=== PATIENT | male | born 1955 | race Caucasian/White ===

== ENCOUNTER 2016-09-19 17:53 | Inpatient (IN) | payer OTHER ==
[~2016-09-19] VITALS: Ht 162.6 cm; Wt 67.1 kg
[~2016-09-19 17:53] MED LIST: ALEN70TA2 PO; ASPI81TA21 PO; ATOR-24 PO; CLOP1TAB5 PO; DEXL60CA4 PO; DIGO0.1216 PO; DOCU-94 PO; DPKSR250 PO; DPKSR500 PO; FLUO40CA8 PO; FURO-85 PO; LISI2.5T5 PO; METO25TA3 PO
[2016-09-19] MEDS ORDERED: ONDANSETRON 8 MG/54 ML D5W IV STA (18:34)
[2016-09-19] MEDS ORDERED: SODIUM CHLORIDE 0.9% 1000ML 1,000 ML IV STA (18:34)
[2016-09-19] MEDS ORDERED: SODIUM CHLORIDE 0.9% 500ML 500 ML IV STA (18:34)
[2016-09-19] MEDS ORDERED: ACETAMINOPHEN 500 MG TAB PO STA (18:34)
[2016-09-19] MEDS ORDERED: MoRPHine SULFATE 4 MG/ML 1 ML CARP\\VIAL IV STA (18:46)
[2016-09-19] MEDS ORDERED: MoRPHine SULFATE 2 MG/ML CARP ONE (18:54)
[2016-09-19 18:57] LABS: BUN/CREATININE RATIO 15.7 (10-20); CALCIUM 9.3 mg/dl (8.5-10.1); POTASSIUM 3.8 mmol/L (3.5-5.1)
[2016-09-19 18:58] LABS: ANISOCYTOSIS PRESENT; COMPLETE YES; ECHINOCYTES 2+; EOS % 0.4 %; GIANT PLATELETS 1+; HEMATOCRIT 41.8 % (42-52); IG% 0.4 %; LYMPH % 4.7 %; LYMPH ABS # 0.39 K/uL (1.2-3.4); MEAN CELL VOLUME 96.5 fL (80-100); MEAN CORPUSCULAR HEMOGLOBIN 32.3 pg (25-34); MEAN CORPUSCULAR HGB CONC 33.5 g/dl (32-36); MEAN PLATELET VOLUME 12.8 fL (7.4-10.4); MONO % 3.1 %; NEUT % 91.4 %; OVALOCYTES 1+; PLATELET COUNT 87 K/uL (130-400); PLT ESTIMATE DECREASED; RED BLOOD COUNT 4.33 M/uL (4.7-6.1); VACUOLIZATION 1+; WHITE BLOOD COUNT 8.35 K/uL (4.8-10.8)
--- NOTE | 2016-09-19 19:11 | DIAGNOSTIC IMAGING REPORT ---
CHEST ONE VIEW PORTABLE CLINICAL HISTORY: vomiting, hypoxia COMPARISON STUDY: 03/03/2016 FINDINGS: The cardiac and mediastinal contours remain stable. There is a left subclavian pacer/defibrillator present. There is no failure. There is no focal pulmonary consolidation. There are no pleural effusions.[ IMPRESSION: No active disease in the chest. Electronically signed by: Gt Bearden M.D. 09/19/2016 7:10 PM Dictated Date/Time: 09/19/2016 7:09 PM
[2016-09-19] MEDS ORDERED: ALBUT/IPRATROP 3MG/0.5MG NEB 3 ML VIAL INH STA (20:20)
[2016-09-19] MEDS ORDERED: LNX125 PO (20:27)
[2016-09-19] MEDS ORDERED: ALBUT/IPRATROP 3MG/0.5MG NEB 3 ML VIAL INH PRN ×2 (20:30→23:15)
[2016-09-19 21:43] LABS: MAGNESIUM 2.1 mg/dl (1.8-2.4); THYROID STIMULATING HORMONE 6.37 uIu/ml (0.300-4.500)
[2016-09-19 23:01] LABS: ARTERIAL BLD GAS O2 SATURATION 92.6 % (90-95); ARTERIAL BLOOD GAS BASE EXCESS -3.9 mEq/L (-9-1.8); ARTERIAL BLOOD GAS HCO3 21 mmol/L (19-24); ARTERIAL BLOOD GAS PO2 70 mm/Hg (80-95); ARTERIAL BLOOD GAS pH 7.37 (7.35-7.45)
[2016-09-19 23:03] LABS: O2 ADMINISTRATION 3 LITERS
[2016-09-19 23:04] LABS: ALLEN TEST POS (POS)
[2016-09-19] MEDS ORDERED: PROMETHAZINE HCL INJ 12.5 MG in SODIUM CHLORIDE 0.9% 50ML 50 ML IV PRN (23:15)
[2016-09-19] MEDS ORDERED: ONDANSETRON INJ 2 MG/ML 2 ML VIAL IV PRN (23:15)
[2016-09-19] MEDS ORDERED: OPTIRAY 320 IV PRN (23:15)
[2016-09-19] MEDS ORDERED: HYDROmorphone INJ 0.5 MG/0.5 ML SYR IV PRN (23:15)
[2016-09-19] MEDS ORDERED: NITROGLYCERIN 0.4 MG SL PER TAB CHARGE SL PRN (23:15)
[2016-09-19] MEDS ORDERED: OXYCODONE/ACETAMINOPHEN 5-325 TAB PO PRN (23:15)
[2016-09-20] VITALS (20 sets, daily range): BP systolic 68–107; BP diastolic 37–68; PULSE 63–108; TEMP 36.8–38.6; O2SAT 90–98; Ht 162.6 cm; Wt 67.1 kg
--- NOTE | 2016-09-20 00:20 | DIAGNOSTIC IMAGING REPORT ---
CT SCAN OF THE ABDOMEN AND PELVIS WITH IV CONTRAST CLINICAL HISTORY: Generalized abdominal pain. COMPARISON STUDY: Abdominal CT dated 02/22/2014. TECHNIQUE: Following the IV administration of 120 cc of Optiray 320, CT scan of the abdomen and pelvis is performed from the lung bases to the proximal femora. Images are reviewed in the axial, sagittal, and coronal planes. IV contrast was administered without complication. Automated dose control exposure was utilized. The examination is degraded by streak artifact from the patient's arms which could not be elevated above the chest. FINDINGS: Lung bases: Pacemaker in the left chest wall is partially imaged. Pacemaker leads are identified. The heart is normal in size and without pericardial effusion. The coronary arteries are densely calcified. There is patchy airspace consolidation in the lower lobes. Fluid/debris is present within the lower lobe bronchi. No pleural effusion is seen. The esophagus is dilated and filled with fluid. Gynecomastia is observed. Liver: The contrast-enhanced liver is normal in size, contour, and attenuation. There is no intrahepatic biliary ductal dilatation. The hepatic veins and portal veins are patent. Gallbladder: Unremarkable. Spleen: Normal in size and attenuation. Pancreas: Atrophic. Adrenal glands: Unremarkable. Kidneys: The contrast enhanced kidneys demonstrate cortical atrophy and are without hydronephrosis. The kidneys enhance symmetrically. 2.5 cm cyst arises from the right upper pole. There is a 4 mm nonobstructing right renal calculus. Subcentimeter cortical hypodensities in the left cyst likely represent cysts but are too small for definitive characterization. Abdominal vasculature: The abdominal aorta is normal in course and caliber noting moderate atherosclerotic calcification. Bowel: The stomach is mildly distended with fluid. There are fluid-filled loops of small bowel seen in the right upper quadrant. There is no clear evidence of bowel obstruction. Liquid stool is noted throughout the colon and the colonic mucosa appears hyperemic. There is no colonic wall thickening or pericolonic infiltration. The appendix is not identified and reported surgically absent. Peritoneum: There is no intraperitoneal free air or abdominal ascites. Lymphadenopathy: None. Pelvic viscera: The bladder, prostate, and seminal vesicles are normal as visualized. Skeletal structures: The skeletal structures are osteopenic. No lytic or blastic lesions are seen. Postoperative change and posttraumatic deformity is noted in the left hip. IMPRESSION: 1. The stomach is distended and fluid-filled. The distal esophagus is also distended and filled with fluid. There is no clear radiographic evidence of bowel obstruction. 2. There is bibasilar patchy airspace consolidation. This likely represents pneumonia/aspiration pneumonitis. Aspiration pneumonitis is favored given the distended and fluid-filled esophagus. 3. There are mildly distended and fluid-filled loops of small bowel in the right upper quadrant. Additionally, there is liquid stool seen throughout the colon with mild hyperemia of the colonic mucosa. There is no colonic wall thickening or pericolonic inflammation. The appearance suggests a nonspecific enterocolitis/diarrheal illness. Clinical correlation will be required. 4. Nonobstructing right renal calculus. 5. Additional findings as above. Electronically signed by: Thang Thomas M.D. 09/20/2016 12:19 AM Dictated Date/Time: 09/20/2016 12:06 AM
--- NOTE | 2016-09-20 00:29 | DIAGNOSTIC IMAGING REPORT ---
CT ANGIOGRAM OF THE CHEST CLINICAL HISTORY: Hypoxia. COMPARISON STUDY: Chest x-ray dated 09/19/2016. Chest CT dated 02/22/2014. TECHNIQUE: Following the IV administration of 120 cc of Optiray 320, CT angiogram of the chest was performed from the upper abdomen to the thoracic inlet utilizing the pulmonary embolus protocol. Images are reviewed in the axial, sagittal, and coronal planes. 3-D MIPS images are created and assessed. IV contrast was administered without complication. The examination is degraded by streak artifact from the patient's arms which could not be elevated above the chest as well as by motion artifact. CT DOSE: 828.45 mGy.cm FINDINGS: Thyroid: Imaged portions of the thyroid gland are normal in size and attenuation. Thoracic aorta: The thoracic aorta is normal in caliber and demonstrates bovine variant arch anatomy. No dissection is seen. Pulmonary vasculature: The pulmonary trunk is dilated, measuring 3.3 cm in transverse diameter. This suggests pulmonary artery hypertension. There are no filling defects identified in main, lobar, or proximal segmental pulmonary branches to suggest pulmonary embolus. Evaluation of the peripheral branches is degraded by motion artifact. Heart: A single lead cardiac AICD is present in the left chest wall. Complete terminates in the right ventricle. The heart is top normal in size and configuration, and without pericardial effusion. The coronary arteries are densely calcified. Lungs and pleural spaces: Evaluation of the lung parenchyma is degraded by respiratory motion artifact. There is patchy bibasilar airspace consolidation, left greater than right. No pleural effusion is seen. The upper lobes appear clear. Fluid/debris fills the lower lobe airways. Mediastinum: There is no mediastinal lymphadenopathy. Nicole: Clear. Axillae: There is no axillary lymphadenopathy. Upper abdomen: The fluid is distended and filled with fluid to the level of the thoracic inlet. The stomach is distended. See report of abdominal CT performed concurrently for detailed intra-abdominal findings. Skeletal structures: The skeletal structures are osteopenic. No lytic or blastic bony lesions are seen. Advanced arthritic change is present in the shoulders, left greater than right. There are mild superior endplate compression forms of T3, T4, and T5. IMPRESSION: 1. Motion and streak artifact degraded examination. 2. There is no evidence of pulmonary embolus in the main, lobar, or proximal segmental pulmonary arteries. 3. There is patchy bibasilar airspace consolidation, left greater than right with fluid/debris filling the lower lobe airways. This likely represents an infectious or inflammatory pneumonitis, likely related to aspiration. 4. The esophagus is distended and filled with fluid the level of the thoracic inlet. Note that this places the patient risk for aspiration. 5. No pleural effusion is identified. 6. Additional changes as above. Electronically signed by: Thang Thomas M.D. 09/20/2016 12:27 AM Dictated Date/Time: 09/20/2016 12:19 AM
[2016-09-20] MEDS ORDERED: SODIUM CHLORIDE 0.9% 1000ML 1,000 ML IV SCH (02:00)
[2016-09-20] MEDS ORDERED: SODIUM CHLOR 0.45% + 20MEQ KCL 1,000 ML IV ONE (03:00)
[2016-09-20] MEDS ORDERED: AMPICILLIN/SULBACTAM CONSULT ACTIVE PRN ×2 (03:15)
[2016-09-20] MEDS: AMPICILLIN/SULBACTAM SOD INJ 3,000 MG in SODIUM CHLORIDE 0.9% 100ML 100 ML IV SCH ×4 (03:38→21:36)
[2016-09-20] MEDS ORDERED: METHYLPREDNISOLONE IV 20 MG in SYRINGE 0 ML IV ONE (03:48)
--- NOTE | 2016-09-20 04:24 | EMERGENCY ROOM VISIT NOTE ---
History Report prepared by Shahid: Lizabeth Le Under the Supervision of: Dr. Kaz Cararnza M.D. First contact with patient: 18:10 Chief Complaint: ABDOMINAL PAIN Stated Complaint: AB PAIN Nursing Triage Summary: pt started vomiting at approx 1600 today. had mid abd pain. pt has been vomiting has now stopped and pt denies any pain. History of Present Illness The patient is a 61 year old male who presents to the Emergency Room via EMS with complaints of persistent vomiting with onset 2.5 hours ago. He notes that an episode of vomiting lasted about one hour. The patient states that he was feeling fine one day ago; he denies sick contacts at home. Today, the patient started to feel ill while he was at home eating dinner, which was beef potpie. Per EMS, the patient stated that he had 6/10 abdominal pain; but this has now resolved. Upon arrival to the ED, the patient developed a headache. The patient states that he does not wear oxygen at home. Pt denies LOC, fevers, chills, diaphoresis, visual changes, neck pain, chest pain, breathing difficulties, nausea, vomiting, abdominal pain, back pain, melena, hematochezia, urinary symptoms, numbness, weakness, lymphadenopathy, rash, or other complaints. Additionally, the patient has a history of a heart attack and a stroke, which has caused the weakness on the left side of his body. Source of History: patient Onset: 2.5 hours ago Position: abdomen Review of Systems See HPI for pertinent positives and negatives. A total of ten systems were reviewed and were otherwise negative. Past Medical & Surgical Medical Problems: (1) Cardiomyopathy (2) CVA (cerebral infarction) (3) TN (myocardial infarction) (4) Presence of combination internal cardiac defibrillator (ICD) and pacemaker (5) Respiratory failure, acute Family History FH: heart disease Social History Smoking Status: Never Smoker Alcohol Use: none Marital Status: Housing Status: lives with family Occupation Status: disabled Current/Historical Medications Scheduled Alendronate Sodium (Fosamax), 70 MG PO WK Aspirin Enteric Coated (Ecotrin Or Generic), 81 MG PO DAILY Atorvastatin (Lipitor), 40 MG PO HS Clopidogrel Bisulfate (Plavix), 75 MG PO DAILY Dexlansoprazole (Dexilant), 60 MG PO DAILY Digoxin (Digoxin), 0.125 MG PO DAILY Divalproex Sodium (Divalproex Sodium ER), 250 MG PO HS Divalproex Sodium (Divalproex Sodium ER), 1,000 MG PO HS Fluoxetine (Prozac), 40 MG PO DAILY Furosemide (Lasix), 20 MG PO Q2D Lisinopril (Lisinopril), 1.25 MG PO HS Metoprolol Succ (Toprol Xl) (Toprol-Xl), 25 MG PO DAILY Allergies Coded Allergies: Naproxen (Unverified Allergy, Mild, 09/19/16) Physical Exam Vital Signs Date Time Temp Pulse Resp B/P Pulse Ox O2 Delivery O2 Flow Rate FiO2 09/19/16 22:29 91 21 97/60 99 Nasal Cannula 3.0 09/19/16 22:18 90 18 110/67 94 Nasal Cannula 3.0 09/19/16 22:14 94 09/19/16 20:28 86 18 108/72 96 Nasal Cannula 3.0 09/19/16 19:58 92 19 111/74 98 Nasal Cannula 3.0 09/19/16 18:58 88 18 115/82 99 09/19/16 18:15 84 09/19/16 18:07 92 Nasal Cannula 3.0 09/19/16 18:00 36.5 83 18 111/71 84 Room Air Physical Exam GENERAL: Awake, alert, mildly ill-appearing, in no distress HENT: Normocephalic, atraumatic. Oropharynx unremarkable. EYES: Normal conjunctiva. Sclera non-icteric. NECK: Supple. No nuchal rigidity. FROM. No JVD. RESPIRATORY: Clear to auscultation. CARDIAC: Regular rate, normal rhythm. Extremities warm and well perfused. Pulses equal. ABDOMEN: Soft, non-distended. No tenderness to palpation. No rebound or guarding. No masses. RECTAL: Deferred. MUSCULOSKELETAL: Chest examination reveals no tenderness. No joint edema. LOWER EXTREMITIES: Calves are equal size bilaterally and non-tender. No edema. No discoloration. NEURO: Normal sensorium. He has left sided arm and leg weakness which he states is chronic. SKIN: No rash or jaundice noted. Medical Decision & Procedures ER Provider Diagnostic Interpretation: X-ray: Per my interpretation, radiologist review. CHEST ONE VIEW PORTABLE CLINICAL HISTORY: vomiting, hypoxia COMPARISON STUDY: 03/03/2016 FINDINGS: The cardiac and mediastinal contours remain stable. There is a left subclavian pacer/defibrillator present. There is no failure. There is no focal pulmonary consolidation. There are no pleural effusions.[ IMPRESSION: No active disease in the chest. Electronically signed by: Gt Bearden M.D. 09/19/2016 7:10 PM Dictated Date/Time: 09/19/2016 7:09 PM Laboratory Results 09/19/16 18:05 Red Blood Count 4.33, Mean Corpuscular Volume 96.5, Mean Corpuscular Hemoglobin 32.3, Mean Corpuscular Hemoglobin Concent 33.5, Mean Platelet Volume 12.8, Neutrophils (%) (Auto) 91.4, Lymphocytes (%) (Auto) 4.7, Monocytes (%) (Auto) 3.1, Eosinophils (%) (Auto) 0.4, Basophils (%) (Auto) 0.0, Neutrophils # (Auto) 7.64, Lymphocytes # (Auto) 0.39, Monocytes # (Auto) 0.26, Eosinophils # (Auto) 0.03, Basophils # (Auto) 0.00 09/19/16 18:05 Test 09/19/16 18:05 09/19/16 19:41 09/19/16 21:10 09/19/16 21:35 White Blood Count 8.35 K/uL (4.8-10.8) Red Blood Count 4.33 M/uL (4.7-6.1) Hemoglobin 14.0 g/dL (14.0-18.0) Hematocrit 41.8 % (42-52) Mean Corpuscular Volume 96.5 fL (80-100) Mean Corpuscular Hemoglobin 32.3 pg (25-34) Mean Corpuscular Hemoglobin Concent 33.5 g/dl (32-36) Platelet Count 87 K/uL (130-400) Mean Platelet Volume 12.8 fL (7.4-10.4) Neutrophils (%) (Auto) 91.4 % Lymphocytes (%) (Auto) 4.7 % Monocytes (%) (Auto) 3.1 % Eosinophils (%) (Auto) 0.4 % Basophils (%) (Auto) 0.0 % Neutrophils # (Auto) 7.64 K/uL (1.4-6.5) Lymphocytes # (Auto) 0.39 K/uL (1.2-3.4) Monocytes # (Auto) 0.26 K/uL (0.11-0.59) Eosinophils # (Auto) 0.03 K/uL (0-0.5) Basophils # (Auto) 0.00 K/uL (0-0.2) RDW Standard Deviation 56.0 fL (36.4-46.3) RDW Coefficient of Variation 15.9 % (11.5-14.5) Immature Granulocyte % (Auto) 0.4 % Immature Granulocyte # (Auto) 0.03 K/uL (0.00-0.02) Toxic Vacuolation 1+ Platelet Estimate DECREASED Giant Platelets 1+ Anisocytosis PRESENT Ovalocytes 1+ Echinocytes 2+ D-Dimer 3690 ug/L FEU (0-500) Anion Gap 9.0 mmol/L (3-11) Est Creatinine Clear Calc Drug Dose 64.2 ml/min Estimated GFR () 93.1 Estimated GFR (Non- 80.3 BUN/Creatinine Ratio 15.7 (10-20) Calcium Level 9.3 mg/dl (8.5-10.1) Magnesium Level 2.1 mg/dl (1.8-2.4) Total Bilirubin 0.5 mg/dl (0.2-1) Direct Bilirubin 0.2 mg/dl (0-0.2) Aspartate Amino Transf (AST/SGOT) 19 U/L (15-37) Alanine Aminotransferase (ALT/SGPT) 23 U/L (12-78) Alkaline Phosphatase 59 U/L (45-117) Troponin I < 0.015 ng/ml (0-0.045) Pro-B-Type Natriuretic Peptide 692 pg/ml (0-900) Total Protein 7.7 gm/dl (6.4-8.2) Albumin 3.5 gm/dl (3.4-5.0) Lipase 196 U/L (73-393) Thyroid Stimulating Hormone (TSH) 6.370 uIu/ml (0.300-4.500) Free Thyroxine 1.31 ng/dl (0.80-1.60) Bedside Lactic Acid Venous 5.37 mmol/L (0.90-1.70) Lactic Acid Level 3.7 mmol/L (0.4-2.0) Digoxin Level 0.3 ng/ml (0.8-2.0) Valproic Acid (Depakene) Level 47 mcg/ml (50-100) Laboratory results reviewed by me Medications Administered Medications (Trade) Dose Ordered Sig/Ton Route Start Time Stop Time Status Last Admin Dose Admin Ondansetron HCl 8 mg 8 mg NOW STAT IV 09/19/16 18:34 09/19/16 18:35 DC 09/19/16 18:52 8 MG Sodium Chloride 500 ml @ 999 mls/hr Q31M STAT IV 09/19/16 18:34 09/19/16 19:04 DC 09/19/16 18:51 999 MLS/HR Sodium Chloride (Nss 1000ml) 1,000 ml @ 200 mls/hr Q5H STAT IV 09/19/16 18:34 09/19/16 23:33 DC 09/19/16 20:12 200 MLS/HR Morphine Sulfate (MoRPHine SULFATE INJ) 2 mg NOW STAT IV 09/19/16 18:46 09/19/16 18:47 DC 09/19/16 18:46 2 MG Morphine Sulfate (MoRPHine SULFATE INJ) 2 mg STK-MED ONCE .ROUTE 09/19/16 18:54 09/19/16 18:55 DC 09/19/16 18:54 2 MG Albuterol/ Ipratropium (Duoneb) 3 ml UD STAT INH 09/19/16 20:20 09/19/16 20:57 DC 09/19/16 21:03 3 ML ECG Indication: vomiting Rate (beats per minute): 82 Rhythm: normal sinus Findings: Q waves (anteroseptal), no acute ischemic change, no ectopy ED Course 1833: The patient was evaluated in room B12. A complete history and physical exam was performed. 1834: Sodium Chloride 1000 ml @ 200 mls/hr IV, Sodium Chloride 500 ml @ 999 mls/ hr IV, Tylenol 1000 mg PO, Zofran 8 mg IV 6: Morphine Sulfate 2 mg IV 1930: I reevaluated the patient; he is doing well. I discussed the test results and treatment plan with the patient. The patient will be evaluated for further management. 2017: I discussed the case with Dr. Ji ([facility]); he will further evaluate the patient. Medical Decision Triage Nursing notes reviewed. The patient's presentation and history were concerning for vomiting and hypoxia. Etiologies such as gastroenteritis, food borne illness, infections, obstruction , pancreatitis, appendicitis, diverticulitis, inflammatory bowel disease, GI bleed, biliary pathology, toxicologic, pneumonia, aspiration, as well as others were entertained. Patient was evaluated. CBC did not reveal any evidence of leukocytosis. Thrombocytopenia noted. Chemistry panel, LFTs, and lipase were negative. BNP troponin were negative as well. The patient had an elevated lactate level. Chest x-ray was performed and did not reveal any evidence of pneumonia. CT scan of the abdomen pelvis was performed this did not reveal any evidence of intra-abdominal pathology. The patient was requiring supplemental oxygen. He was treated with the above medications and was feeling much better. He will need admission to the hospital for further evaluation. I'm concerned that he may have aspirated. Consultation was made with internal medicine. Patient was evaluated in the Emergency Room for further treatment. The chart was completed utilizing [employer] Speech voice recognition software. Grammatical errors, random word insertions, pronoun errors, and incomplete sentences are an occasional consequence of this system due to software limitations, ambient noise, and hardware issues. Any formal questions or concerns about the content, text, or information contained within the body of this dictation should be directly addressed to the physician for clarification. Consults Time Called: 2014 Consulting Physician: Dr. Ji ([facility]) Returned Call: 2016 I discussed the case with Dr. Ji ([facility]); he will further evaluate the patient. Impression Primary Impression: Vomiting Additional Impressions: Hypoxia Lactic acidosis Scribe Attestation The scribe's documentation has been prepared under my direction and personally reviewed by me in its entirety. I confirm that the note above accurately reflects all work, treatment, procedures, and medical decision making performed by me. Departure Information Dispostion Being Evaluated By Hospitalist Referrals Richardson Sterling M.D. (PCP) Patient Instructions My [facility] Problem Qualifiers
[2016-09-20 06:07] LABS: BASO % 0.1 %; BASO ABS # 0.01 K/uL (0-0.2); COMPLETE YES; ECHINOCYTES 1+; EOS % 0.1 %; HEMATOCRIT 34.5 % (42-52); IG% 0.4 %; LYMPH % 11.3 %; LYMPH ABS # 1.22 K/uL (1.2-3.4); MEAN CELL VOLUME 93.8 fL (80-100); MEAN CORPUSCULAR HEMOGLOBIN 32.1 pg (25-34); MEAN CORPUSCULAR HGB CONC 34.2 g/dl (32-36); MEAN PLATELET VOLUME 13.5 fL (7.4-10.4); MONO % 11.2 %; NEUT % 76.9 %; PLATELET COUNT 72 K/uL (130-400); PLT ESTIMATE DECREASED; RED BLOOD COUNT 3.68 M/uL (4.7-6.1); WHITE BLOOD COUNT 10.82 K/uL (4.8-10.8)
[2016-09-20 06:15] LABS: BLOOD UREA NITROGEN 19 mg/dl (7-18); BUN/CREATININE RATIO 18.6 (10-20); CARBON DIOXIDE 26 mmol/L (21-32); CHLORIDE 109 mmol/L (98-107); GLUCOSE 135 mg/dl (70-99); POTASSIUM 3.9 mmol/L (3.5-5.1); SODIUM 143 mmol/L (136-145)
[2016-09-20 06:22] LABS: CALCIUM 8.2 mg/dl (8.5-10.1)
[2016-09-20] MEDS: ALBUT/IPRATROP 3MG/0.5MG NEB 3 ML VIAL INH SCH ×4 (07:30→19:08)
[2016-09-20] MEDS: METOPROLOL SUCC 25MG EXT REL TAB PO SCH (07:41)
[2016-09-20] MEDS: FLUOXETINE HCL 20 MG CAP PO SCH (07:43)
[2016-09-20] MEDS: PANTOprazole SOD 40 MG TAB PO SCH (07:43)
[2016-09-20] MEDS: DIGOXIN 0.125 MG TAB PO SCH (07:43)
[2016-09-20] MEDS: CLOPIDOGREL BISULFATE 75 MG TAB PO SCH (07:43)
[2016-09-20] MEDS: ASPIRIN 81 MG ECTAB PO SCH (07:44)
[2016-09-20] MEDS: ACETAMINOPHEN 500 MG TAB PO PRN (08:29)
--- NOTE | 2016-09-20 09:03 | HISTORY & PHYSICAL EXAMINATION ---
DATE OF ADMISSION: 09/19/2016 PRIMARY CARE DOCTOR: Dr. Sterling. Hx obtained from px and records. CHIEF COMPLAINT: Abdominal pain, nausea and vomiting. HISTORY OF PRESENT ILLNESS: Medical history significant for chronic systolic heart failure secondary to ischemic cardiomyopathy (EF 15%) sp ICD, history of CAD, CVA, seizure disorder, COPD, past tobacco abuse , PVD, chronic thrombocytopenia. Recent confinement last January 2014 for chest pain. A few days history of middle achy abdominal pain, nausea, vomiting. Good bowel movement. Patient denies chest pain, cough, shortness of breath sx. Noted to be hypoxemic in the Emergency Room. MEDICAL HISTORY: As above. 2D from February 2014 showed EF of 15%-20%. SURGERIES: ICD placement, knee surgery, appendectomy, hip surgery. HOME MEDICATIONS: Include aspirin, Fosamax, Lipitor, Plavix, Dexilant, digoxin, Lasix, Prozac, lisinopril, Toprol-XL. ALLERGIES: NAPROXEN. FAMILY HISTORY: Heart disease. PERSONAL AND SOCIAL HISTORY: past tobacci abuse, on disability. REVIEW OF SYSTEMS: As per HPI, all other ROS negative. PHYSICAL EXAMINATION: VITAL SIGNS: Blood pressure was noted to be 111/71, pulse rate 80, RR 18, temperature 37.6, sats 84 on room air. GENERAL: Noted to be chronically ill. No respiratory distress. SKIN: Pallor. HEENT: pale palp conjunctivae, dry mucosa. NECK: No JVD. Supple. CHEST: Decreased breath sounds, occ wheeze. HEART: Diminished S1, S2. ABDOMEN: Some distention. Minimal central tenderness. EXTREMITIES: No edema, no tenderness. NEUROLOGIC: No gross focality. LABS: Hemoglobin was noted to be 14, hematocrit 41, white cell count is 8, platelets 87. Sodium 140, potassium 3.8, chloride 104, CO2 of 25, BUN 16, creatinine 1, glucose was noted to be 114. D-dimer was abnormal. lactic acid of 3.7, trop N CTA patchy bibasilar airspace consolidation, left/inflammatory pneumonitis. CT abdomen and pelvis showed enterocolitis. ABG pH 7.37, pCO2 of 37, pO2 of 70 on 3 liters. ASSESSMENT: 1. Acute hypoxemic respiratory failure secondary to aspiration pneumonitis secondary to GI illness (viral gastroenteritis) No sepsis. 2. chronic systolic heart failure secondary to ischemic cardiomyopathy sp ICD (EF 15%) The patient is euvolemic to dry 3. Hypertension, blood pressure on the lower side. 4. hx CVA as per records 5. hx seizure dso on Valproic acid 6. peripheral vascular disease as per records. 7. past tobacco abuse 8. chronic thrombocytopenia PLAN: PCU supplemental O2. Unasyn, Solu-Medrol one dose; nebs RTC p.r.n. Gentle IV hydration. Hold home diuretics for now. Follow lactic acid. DVT prophylaxis SCDs re thrombocytopenia Level 3 Code Status : okay with CPR. No intubation. MTDD
[2016-09-20] MEDS ORDERED: SODIUM CHLORIDE 0.9% 500ML 500 ML IV SCH (11:30)
--- NOTE | 2016-09-20 13:53 | Progress Note ---
Internal Med Progress Note Date of Service: Sep 20, 2016. Provider Documentation: SUBJECTIVE: The patient was seen and examined was noted to have very low BP ,Systolic 70s No symptoms reported OBJECTIVE: Vital Signs-as noted below Exam: General-No distress t rest Eyes-normal ENT-normal Neck-supple Lungs-clear to auscultate bilaterally Heart-Regular,no murmur appreciated Abdomen-Benign,no masses Extremities-No edema Neuro-AAOx3 Lab data as noted below. ASSESSMENT & PLAN: Chronic systolic heart failure secondary to ischemic cardiomyopathy S/P ICD (EF 15%) Low BP this Morning Will give IV fluid with Caution Hold Diuretics Monitor for any SOB Acute hypoxemic respiratory failure Secondary to aspiration pneumonitis No sepsis on Admission Unasyn, Solu-Medrol one dose, nebs RTC p.r.n. Lactic acid is up to >4 Likely secondary to Hypotension Will give more IV Fluid Clinically better this morning Hypertension, blood pressure on the lower side. Hold an antihypertensive Peripheral vascular disease as per records. Past tobacco abuse DVT prophylaxis with Lovenox subQ. Level 3 Code Status : okay with CPR. No intubation. Vital Signs: Date Time Temp Pulse Resp B/P Pulse Ox O2 Delivery O2 Flow Rate FiO2 09/20/16 12:14 96 89/44 09/20/16 11:27 37.1 91 18 75/44 92 Room Air 09/20/16 11:14 37.5 86 16 68/37 95 Nasal Cannula 2.0 09/20/16 11:07 82 16 98 Nasal Cannula 2.0 09/20/16 09:51 37.8 09/20/16 08:00 Nasal Cannula 3.0 09/20/16 07:48 38.6 93 16 83/54 90 Room Air 09/20/16 07:43 93 09/20/16 07:30 82 16 93 Nasal Cannula 2.0 09/20/16 04:00 Nasal Cannula 3.0 09/20/16 03:45 37.5 85 20 97/63 94 Nasal Cannula 3.0 09/20/16 00:41 36.8 63 18 96/68 94 Nasal Cannula 3.0 09/19/16 23:33 90 18 100/66 99 Nasal Cannula 3.0 09/19/16 22:29 91 21 97/60 99 Nasal Cannula 3.0 09/19/16 22:18 90 18 110/67 94 Nasal Cannula 3.0 09/19/16 22:14 94 09/19/16 20:28 86 18 108/72 96 Nasal Cannula 3.0 09/19/16 19:58 92 19 111/74 98 Nasal Cannula 3.0 09/19/16 18:58 88 18 115/82 99 09/19/16 18:15 84 09/19/16 18:07 92 Nasal Cannula 3.0 09/19/16 18:00 36.5 83 18 111/71 84 Room Air Lab Results: Results Past 24 Hours Test 09/19/16 18:05 09/19/16 19:41 09/19/16 21:10 09/19/16 21:35 Range/Units White Blood Count 8.35 4.8-10.8 K/uL Red Blood Count 4.33 4.7-6.1 M/uL Hemoglobin 14.0 14.0-18.0 g/dL Hematocrit 41.8 42-52 % Mean Corpuscular Volume 96.5 80-100 fL Mean Corpuscular Hemoglobin 32.3 25-34 pg Mean Corpuscular Hemoglobin Concent 33.5 32-36 g/dl Platelet Count 87 130-400 K/uL Mean Platelet Volume 12.8 7.4-10.4 fL Neutrophils (%) (Auto) 91.4 % Lymphocytes (%) (Auto) 4.7 % Monocytes (%) (Auto) 3.1 % Eosinophils (%) (Auto) 0.4 % Basophils (%) (Auto) 0.0 % Neutrophils # (Auto) 7.64 1.4-6.5 K/uL Lymphocytes # (Auto) 0.39 1.2-3.4 K/uL Monocytes # (Auto) 0.26 0.11-0.59 K/uL Eosinophils # (Auto) 0.03 0-0.5 K/uL Basophils # (Auto) 0.00 0-0.2 K/uL RDW Standard Deviation 56.0 36.4-46.3 fL RDW Coefficient of Variation 15.9 11.5-14.5 % Immature Granulocyte % (Auto) 0.4 % Immature Granulocyte # (Auto) 0.03 0.00-0.02 K/uL Toxic Vacuolation 1+ Platelet Estimate DECREASED Giant Platelets 1+ Anisocytosis PRESENT Ovalocytes 1+ Echinocytes 2+ D-Dimer 3690 0-500 ug/L FEU Sodium Level 142 136-145 mmol/L Potassium Level 3.8 3.5-5.1 mmol/L Chloride Level 108 98-107 mmol/L Carbon Dioxide Level 25 21-32 mmol/L Anion Gap 9.0 3-11 mmol/L Blood Urea Nitrogen 16 7-18 mg/dl Creatinine 1.00 0.60-1.40 mg/dl Est Creatinine Clear Calc Drug Dose 64.2 ml/min Estimated GFR () 93.1 Estimated GFR (Non- 80.3 BUN/Creatinine Ratio 15.7 10-20 Random Glucose 146 70-99 mg/dl Calcium Level 9.3 8.5-10.1 mg/dl Magnesium Level 2.1 1.8-2.4 mg/dl Total Bilirubin 0.5 0.2-1 mg/dl Direct Bilirubin 0.2 0-0.2 mg/dl Aspartate Amino Transf (AST/SGOT) 19 15-37 U/L Alanine Aminotransferase (ALT/SGPT) 23 12-78 U/L Alkaline Phosphatase 59 45-117 U/L Troponin I < 0.015 0-0.045 ng/ml Pro-B-Type Natriuretic Peptide 692 0-900 pg/ml Total Protein 7.7 6.4-8.2 gm/dl Albumin 3.5 3.4-5.0 gm/dl Lipase 196 73-393 U/L Thyroid Stimulating Hormone (TSH) 6.370 0.300-4.500 uIu/ml Free Thyroxine 1.31 0.80-1.60 ng/dl Bedside Lactic Acid Venous 5.37 0.90-1.70 mmol/L Lactic Acid Level 3.7 0.4-2.0 mmol/L Digoxin Level 0.3 0.8-2.0 ng/ml Valproic Acid (Depakene) Level 47 50-100 mcg/ml Test 09/19/16 22:45 09/20/16 05:30 09/20/16 12:35 Range/Units Arterial Blood pH 7.37 7.35-7.45 Arterial Blood Partial Pressure CO2 37 35-46 mmHg Arterial Blood Partial Pressure O2 70 80-95 mm/Hg Arterial Blood HCO3 21 19-24 mmol/L Arterial Blood Oxygen Saturation 92.6 90-95 % Arterial Blood Base Excess -3.9 -9-1.8 mEq/L Arterial Blood Gas Delivery 3 LITERS Brennan Test POS POS White Blood Count 10.82 4.8-10.8 K/uL Red Blood Count 3.68 4.7-6.1 M/uL Hemoglobin 11.8 14.0-18.0 g/dL Hematocrit 34.5 42-52 % Mean Corpuscular Volume 93.8 80-100 fL Mean Corpuscular Hemoglobin 32.1 25-34 pg Mean Corpuscular Hemoglobin Concent 34.2 32-36 g/dl Platelet Count 72 130-400 K/uL Mean Platelet Volume 13.5 7.4-10.4 fL Neutrophils (%) (Auto) 76.9 % Lymphocytes (%) (Auto) 11.3 % Monocytes (%) (Auto) 11.2 % Eosinophils (%) (Auto) 0.1 % Basophils (%) (Auto) 0.1 % Neutrophils # (Auto) 8.33 1.4-6.5 K/uL Lymphocytes # (Auto) 1.22 1.2-3.4 K/uL Monocytes # (Auto) 1.21 0.11-0.59 K/uL Eosinophils # (Auto) 0.01 0-0.5 K/uL Basophils # (Auto) 0.01 0-0.2 K/uL RDW Standard Deviation 55.3 36.4-46.3 fL RDW Coefficient of Variation 16.0 11.5-14.5 % Immature Granulocyte % (Auto) 0.4 % Immature Granulocyte # (Auto) 0.04 0.00-0.02 K/uL Platelet Estimate DECREASED Echinocytes 1+ Sodium Level 143 136-145 mmol/L Potassium Level 3.9 3.5-5.1 mmol/L Chloride Level 109 98-107 mmol/L Carbon Dioxide Level 26 21-32 mmol/L Anion Gap 8.0 3-11 mmol/L Blood Urea Nitrogen 19 7-18 mg/dl Creatinine 1.00 0.60-1.40 mg/dl Est Creatinine Clear Calc Drug Dose 64.2 ml/min Estimated GFR () 93.1 Estimated GFR (Non- 80.3 BUN/Creatinine Ratio 18.6 10-20 Random Glucose 135 70-99 mg/dl Lactic Acid Level 2.6 4.0 0.4-2.0 mmol/L Calcium Level 8.2 8.5-10.1 mg/dl Troponin I < 0.015 0-0.045 ng/ml Microbiology Results 09/19/16 Blood Culture, Received Pending 09/19/16 Blood Culture, Received Pending
[2016-09-20] MEDS ORDERED: NURSING VERBAL MED ORDER ONE (14:00)
[2016-09-20] MEDS ORDERED: SODIUM CHLORIDE 0.9% 1000ML 500 ML IV SCH (14:15)
[2016-09-20 14:32] LABS: URINE APPEARANCE CLEAR (CLEAR); URINE BILIRUBIN NEG (NEG); URINE COLOR YELLOW; URINE NITRITE NEG (NEG); URINE SPECIFIC GRAVITY 1.003 (1.000-1.030); UROBILINOGEN NEG (NEG); ZZUR CULT IF INDIC CLEAN CATCH NO
[2016-09-20 14:33] LABS: MANUAL MICROSCOPIC REQUIRED? NO; REVIEW REQ? NO
[2016-09-20] MEDS: SODIUM CHLORIDE 0.9% 1000ML 1,000 ML IV SCH (18:36)
--- NOTE | 2016-09-20 19:08 | DIAGNOSTIC IMAGING REPORT ---
CHEST ONE VIEW PORTABLE CLINICAL HISTORY: Congestive heart failure. COMPARISON STUDY: Chest radiograph and chest CT September 19, 2016. FINDINGS: A left subclavian pacer/AICD is in place. There is no pneumothorax or pleural effusion. Lung volumes are diminished. Mild cardiomegaly is unchanged. There is no radiographic evidence of pulmonary edema. Left basilar consolidation has increased. IMPRESSION: Increasing left basilar consolidation suggestive of pneumonia. Radiographic follow up to ensure resolution is recommended. Electronically signed by: Krzysztof Sneed M.D. 09/20/2016 7:07 PM Dictated Date/Time: 09/20/2016 7:05 PM
[2016-09-20] MEDS: ATORVASTATIN 40 MG TAB PO SCH (20:58)
[2016-09-20] MEDS: LISINOPRIL 2.5 MG TAB PO SCH (21:00)
[2016-09-20] MEDS: DIVALPROEX 250 MG EXTENDED REL TAB PO SCH (21:00)
[2016-09-20] MEDS: DIVALPROEX 500 MG EXTENDED RELEASE TAB PO SCH (21:01)
[2016-09-21] MEDS: AMPICILLIN/SULBACTAM SOD INJ 3,000 MG in SODIUM CHLORIDE 0.9% 100ML 100 ML IV SCH ×4 (03:35→22:12)
[2016-09-21 04:42] VITALS: BP 99/63; PULSE 86; TEMP 37.1; O2SAT 98
[2016-09-21 05:57] LABS: HEMATOCRIT 31.6 % (42-52); MEAN CELL VOLUME 94.9 fL (80-100); MEAN CORPUSCULAR HEMOGLOBIN 31.2 pg (25-34); MEAN CORPUSCULAR HGB CONC 32.9 g/dl (32-36); MEAN PLATELET VOLUME 12.4 fL (7.4-10.4); PLATELET COUNT 63 K/uL (130-400); RED BLOOD COUNT 3.33 M/uL (4.7-6.1); WHITE BLOOD COUNT 10.02 K/uL (4.8-10.8)
[2016-09-21 06:34] LABS: BUN/CREATININE RATIO 13.9 (10-20); CALCIUM 7.4 mg/dl (8.5-10.1)
[2016-09-21 07:30] VITALS: BP 99/65; PULSE 82; PULSE 97; TEMP 37.2; O2SAT 92; O2SAT 95
[2016-09-21] MEDS: ALBUT/IPRATROP 3MG/0.5MG NEB 3 ML VIAL INH SCH ×2 (07:33→11:17)
[2016-09-21 07:53] LABS: CREATININE 0.69 mg/dl (0.60-1.40)
[2016-09-21] MEDS: ASPIRIN 81 MG ECTAB PO SCH (08:32)
[2016-09-21] MEDS: CLOPIDOGREL BISULFATE 75 MG TAB PO SCH (08:33)
[2016-09-21] MEDS: DIGOXIN 0.125 MG TAB PO SCH (08:33)
[2016-09-21] MEDS: METOPROLOL SUCC 25MG EXT REL TAB PO SCH (08:33)
[2016-09-21] MEDS: PANTOprazole SOD 40 MG TAB PO SCH (08:34)
[2016-09-21] MEDS: FLUOXETINE HCL 20 MG CAP PO SCH (08:34)
[2016-09-21] MEDS: SODIUM CHLORIDE 0.9% 1000ML 1,000 ML IV SCH ×2 (08:39→19:41)
[2016-09-21 11:18] VITALS: PULSE 93
[2016-09-21 11:44] VITALS: BP 99/62; PULSE 92; TEMP 37.3; O2SAT 92
--- NOTE | 2016-09-21 13:03 | Progress Note ---
Internal Med Progress Note Date of Service: Sep 21, 2016. Provider Documentation: SUBJECTIVE: The patient was seen and examined Bp is maintained at ~90s No complaints OBJECTIVE: Vital Signs-as noted below Exam: General-No distress at rest Eyes-normal ENT-normal Neck-supple Lungs-clear to auscultate bilaterally Heart-Regular,no murmur appreciated Abdomen-Benign,no masses Extremities-No edema Neuro-AAOx3 Lab data as noted below. ASSESSMENT & PLAN: Chronic systolic heart failure secondary to ischemic cardiomyopathy S/P ICD (EF 15%) Low BP this Morning Will give IV fluid with Caution Hold Diuretics Monitor for any SOB CXR-no CHF No symptoms of failure Clinically better Acute hypoxemic respiratory failure Secondary to aspiration pneumonitis No sepsis on Admission Unasyn, Solu-Medrol one dose, nebs RTC p.r.n. Lactic acid is up to >4 Likely secondary to Hypotension Will give more IV Fluid Hypertension Hold an antihypertensive for low BP Blood pressure is still on lower side Peripheral vascular disease as per records. Past tobacco abuse DVT prophylaxis with Lovenox subQ. Level 3 Code Status : okay with CPR. No intubation. Disposition PT/OT Discharge in a day or two Vital Signs: Date Time Temp Pulse Resp B/P Pulse Ox O2 Delivery O2 Flow Rate FiO2 09/21/16 12:00 Nasal Cannula 2.0 09/21/16 11:44 37.3 92 20 99/62 92 09/21/16 11:18 93 16 Room Air 93.0 09/21/16 08:33 84 09/21/16 08:05 Nasal Cannula 2.0 09/21/16 07:30 37.2 97 16 99/65 92 Room Air 09/21/16 07:30 82 16 95 Nasal Cannula 2.0 09/21/16 04:42 37.1 86 20 99/63 98 Nasal Cannula 2.0 09/21/16 04:00 Nasal Cannula 2.0 09/21/16 00:00 Nasal Cannula 2.0 09/20/16 23:37 36.8 82 20 107/65 97 Nasal Cannula 2.0 09/20/16 21:04 84 97/62 09/20/16 20:00 93 Nasal Cannula 3.0 09/20/16 19:43 37.1 88 20 91/53 97 Nasal Cannula 2.0 09/20/16 19:08 86 16 98 Nasal Cannula 3.0 09/20/16 18:59 36.8 85 18 92/53 98 Nasal Cannula 09/20/16 16:58 36.8 96 18 75/45 97 09/20/16 16:00 93 Nasal Cannula 3.0 09/20/16 15:26 108 16 93 Nasal Cannula 3.0 09/20/16 15:13 85/45 Lab Results: Results Past 24 Hours Test 09/20/16 14:12 09/21/16 05:40 Range/Units Urine Color YELLOW Urine Appearance CLEAR CLEAR Urine pH 6.0 4.5-7.5 Urine Specific [place] 1.003 1.000-1.030 Urine Protein NEG NEG Urine Glucose (UA) NEG NEG Urine Ketones NEG NEG Urine Occult Blood NEG NEG Urine Nitrite NEG NEG Urine Bilirubin NEG NEG Urine Urobilinogen NEG NEG Urine Leukocyte Esterase NEG NEG White Blood Count 10.02 4.8-10.8 K/uL Red Blood Count 3.33 4.7-6.1 M/uL Hemoglobin 10.4 14.0-18.0 g/dL Hematocrit 31.6 42-52 % Mean Corpuscular Volume 94.9 80-100 fL Mean Corpuscular Hemoglobin 31.2 25-34 pg Mean Corpuscular Hemoglobin Concent 32.9 32-36 g/dl RDW Standard Deviation 56.9 36.4-46.3 fL RDW Coefficient of Variation 16.3 11.5-14.5 % Platelet Count 63 130-400 K/uL Mean Platelet Volume 12.4 7.4-10.4 fL Sodium Level 148 136-145 mmol/L Potassium Level 4.0 3.5-5.1 mmol/L Chloride Level 115 98-107 mmol/L Carbon Dioxide Level 27 21-32 mmol/L Anion Gap 6.0 3-11 mmol/L Blood Urea Nitrogen 10 7-18 mg/dl Creatinine 0.69 0.60-1.40 mg/dl Est Creatinine Clear Calc Drug Dose 93.0 ml/min Estimated GFR () 117.9 Estimated GFR (Non- 101.7 BUN/Creatinine Ratio 13.9 10-20 Random Glucose 74 70-99 mg/dl Calcium Level 7.4 8.5-10.1 mg/dl Magnesium Level 2.0 1.8-2.4 mg/dl
[2016-09-21] MEDS: ACETAMINOPHEN 500 MG TAB PO PRN (13:55)
[2016-09-21 15:16] VITALS: BP 96/61; PULSE 89; TEMP 37.5; O2SAT 96
[2016-09-21] MEDS: IPRATROPIUM BROMIDE/ALBUTEROL respimat INH INH SCH ×3 (16:48→20:45)
[2016-09-21 19:49] VITALS: BP 91/57; PULSE 84; TEMP 36.7; O2SAT 96
[2016-09-21] MEDS: ATORVASTATIN 40 MG TAB PO SCH (20:46)
[2016-09-21] MEDS: LISINOPRIL 2.5 MG TAB PO SCH (20:48)
[2016-09-21] MEDS: DIVALPROEX 500 MG EXTENDED RELEASE TAB PO SCH (20:52)
[2016-09-21] MEDS: DIVALPROEX 250 MG EXTENDED REL TAB PO SCH (20:52)
[2016-09-22] VITALS: BP 93/57; PULSE 73; TEMP 36.8; O2SAT 99
[2016-09-22] MEDS: AMPICILLIN/SULBACTAM SOD INJ 3,000 MG in SODIUM CHLORIDE 0.9% 100ML 100 ML IV SCH ×4 (03:40→22:03)
[2016-09-22 04:00] VITALS: BP 97/56; PULSE 79; TEMP 36.9; O2SAT 99
--- NOTE | 2016-09-22 07:30 | Clinical Documentation Query ---
QUERY 1 OF [address] WILLIAM, In your clinical opinion is this patient being managed for: (+ ) viral gastroenteritis ( ) Other explanation of clinical findings (Please Explain) ( ) Unable to determine (Please Define) ( ) Need to Discuss ( ) Not Agree The medical record reflects the following clinical findings, treatment, and risk factors. Clinical Indicators: 61 yo male presenting with vomiting. CT abd suggests a nonspecific enterocolitis/diarrheal illness. H/P mentions pt wit viral gastroenteritis. This diagnosis has since been removed from the progress notes Treatment: IV fluids, IV zofran in ER Risk Factors: age, COPD QUERY 2 OF 2 Thank you for your documentation of acute respiratory failure noted on 09/20/16 in the H/P. Due to recent [employer] audit denials and stringent requirements passed on by our coding department, clear clinical indicators and treatment must be present. Please include the clinical support and treatment in your next progress note. Our coding department is requiring at least 2 of the indicators below or they will not code this diagnosis: Acute Respiratory Failure indicators include: * Respirations >28 or tachypnea * Air hunger * Use of accessory muscles of respiration * Inability to speak in full sentences *Cyanosis * Pulse ox <90% RA or <95% on O2 *pH <7.35 or >7.45 * pO2 < 60 mm Hg (or 10mm below COPD patient's baseline) * pCO2 >50mm Hg (or 10mm above COPD patient's baseline) Please clarify and document your clinical opinion in the progress notes and discharge summary. Terms such as "probable", "suspected", "likely", "questionable", "possible", or "still to be ruled out" are acceptable. IF IN AGREEMENT, YOU MUST DOCUMENT ABOVE DIAGNOSTIC STATEMENT IN DAILY PROGRESS NOTES AND DISCHARGE SUMMARY. This document is not part of the patient's record. Thank You, Jeanne Acosta RN [phone]
[2016-09-22 07:41] LABS: HEMATOCRIT 29.3 % (42-52); MEAN CELL VOLUME 95.8 fL (80-100); MEAN CORPUSCULAR HEMOGLOBIN 31.4 pg (25-34); MEAN CORPUSCULAR HGB CONC 32.8 g/dl (32-36); MEAN PLATELET VOLUME 12.1 fL (7.4-10.4); PLATELET COUNT 60 K/uL (130-400); RED BLOOD COUNT 3.06 M/uL (4.7-6.1); WHITE BLOOD COUNT 7.51 K/uL (4.8-10.8)
[2016-09-22 07:55] VITALS: BP 111/70; PULSE 73; TEMP 36.8; O2SAT 99
[2016-09-22] MEDS: ASPIRIN 81 MG ECTAB PO SCH (07:57)
[2016-09-22] MEDS: PANTOprazole SOD 40 MG TAB PO SCH (07:58)
[2016-09-22] MEDS: FLUOXETINE HCL 20 MG CAP PO SCH (07:58)
[2016-09-22] MEDS: METOPROLOL SUCC 25MG EXT REL TAB PO SCH (07:58)
[2016-09-22] MEDS: CLOPIDOGREL BISULFATE 75 MG TAB PO SCH (07:58)
[2016-09-22] MEDS: DIGOXIN 0.125 MG TAB PO SCH (07:58)
[2016-09-22] MEDS: SODIUM CHLORIDE 0.9% 1000ML 1,000 ML IV SCH ×2 (08:01→22:18)
[2016-09-22 08:08] LABS: BUN/CREATININE RATIO 7.2 (10-20); CALCIUM 7.8 mg/dl (8.5-10.1); CREATININE 0.58 mg/dl (0.60-1.40)
[2016-09-22 11:34] VITALS: BP 110/69; PULSE 70; TEMP 37.1; O2SAT 100
--- NOTE | 2016-09-22 11:55 | Progress Note ---
Internal Med Progress Note Date of Service: Sep 22, 2016. Provider Documentation: SUBJECTIVE: The patient was seen and examined Bp is maintained at >100 No complaints Feels much better OBJECTIVE: Vital Signs-as noted below Exam: General-No distress at rest Eyes-normal ENT-normal Neck-supple Lungs-clear to auscultate bilaterally Heart-Regular,no murmur appreciated Abdomen-Benign,no masses ,bowel sound present Extremities-No edema Neuro-AAOx3 Lab data as noted below. ASSESSMENT & PLAN: Chronic systolic heart failure secondary to ischemic cardiomyopathy S/P ICD (EF 15%) Low BP noted on 09/20/16 Received IV fluid with Caution Hold Diuretics Monitor for any SOB CXR-no CHF No symptoms of failure Clinically much better Blood pressure is maintained Acute hypoxemic respiratory failure Presented with SOB,Tachypnea,using accessory muscles of respiration and was unable to finish a sentence during conversation Secondary to aspiration pneumonitis:secondary to Viral Gastroenteritis Likely contributed by Viral Gastroenteritis No sepsis on Admission Unasyn, Solu-Medrol one dose, nebs RTC p.r.n. Lactic acid is up to >4 Likely secondary to Hypotension Will give more IV Fluid Clinically much better today Hypertension Hold an antihypertensive for low BP Blood pressure is maintained Peripheral vascular disease as per records. Past tobacco abuse DVT prophylaxis with Lovenox subQ. Level 3 Code Status : okay with CPR. No intubation. Disposition PT/OT May be discharged today Vital Signs: Date Time Temp Pulse Resp B/P Pulse Ox O2 Delivery O2 Flow Rate FiO2 09/22/16 11:34 37.1 70 16 110/69 100 Nasal Cannula 2.0 09/22/16 07:58 72 09/22/16 07:55 36.8 73 16 111/70 99 Nasal Cannula 2.0 09/22/16 04:10 Nasal Cannula 2.0 09/22/16 04:00 36.9 79 20 97/56 99 2.0 09/22/16 00:10 Nasal Cannula 2.0 09/22/16 00:00 36.8 73 18 93/57 99 2.0 09/21/16 19:49 36.7 84 18 91/57 96 Nasal Cannula 2.0 09/21/16 19:40 Nasal Cannula 2.0 09/21/16 15:59 Nasal Cannula 2.0 09/21/16 15:16 37.5 89 20 96/61 96 2.0 09/21/16 12:00 Nasal Cannula 2.0 Lab Results: Results Past 24 Hours Test 09/22/16 06:55 Range/Units White Blood Count 7.51 4.8-10.8 K/uL Red Blood Count 3.06 4.7-6.1 M/uL Hemoglobin 9.6 14.0-18.0 g/dL Hematocrit 29.3 42-52 % Mean Corpuscular Volume 95.8 80-100 fL Mean Corpuscular Hemoglobin 31.4 25-34 pg Mean Corpuscular Hemoglobin Concent 32.8 32-36 g/dl RDW Standard Deviation 57.0 36.4-46.3 fL RDW Coefficient of Variation 16.3 11.5-14.5 % Platelet Count 60 130-400 K/uL Mean Platelet Volume 12.1 7.4-10.4 fL Sodium Level 146 136-145 mmol/L Potassium Level 4.0 3.5-5.1 mmol/L Chloride Level 112 98-107 mmol/L Carbon Dioxide Level 25 21-32 mmol/L Anion Gap 9.0 3-11 mmol/L Blood Urea Nitrogen 4 7-18 mg/dl Creatinine 0.58 0.60-1.40 mg/dl Est Creatinine Clear Calc Drug Dose 110.6 ml/min Estimated GFR () 126.6 Estimated GFR (Non- 109.3 BUN/Creatinine Ratio 7.2 10-20 Random Glucose 78 70-99 mg/dl Calcium Level 7.8 8.5-10.1 mg/dl
[2016-09-22] MEDS: IPRATROPIUM BROMIDE/ALBUTEROL respimat INH INH SCH ×2 (16:40→21:40)
[2016-09-22 20:11] VITALS: BP 97/62; PULSE 88; TEMP 37; O2SAT 92
[2016-09-22] MEDS: DIVALPROEX 250 MG EXTENDED REL TAB PO SCH (21:40)
[2016-09-22] MEDS: DIVALPROEX 500 MG EXTENDED RELEASE TAB PO SCH (21:41)
[2016-09-22] MEDS: ATORVASTATIN 40 MG TAB PO SCH (21:41)
[2016-09-22] MEDS: LISINOPRIL 2.5 MG TAB PO SCH (21:46)
[2016-09-22 23:48] VITALS: BP 96/62; PULSE 74; TEMP 36.8; O2SAT 98
[2016-09-23] VITALS (9 sets, daily range): BP systolic 96–107; BP diastolic 58–66; PULSE 64–86; TEMP 36.8–37; O2SAT 96–98
[2016-09-23] MEDS: AMPICILLIN/SULBACTAM SOD INJ 3,000 MG in SODIUM CHLORIDE 0.9% 100ML 100 ML IV SCH (03:46)
[2016-09-23] MEDS: CLOPIDOGREL BISULFATE 75 MG TAB PO SCH (08:42)
[2016-09-23] MEDS: DIGOXIN 0.125 MG TAB PO SCH (08:42)
[2016-09-23] MEDS: METOPROLOL SUCC 25MG EXT REL TAB PO SCH (08:43)
[2016-09-23] MEDS: ASPIRIN 81 MG ECTAB PO SCH (08:44)
[2016-09-23] MEDS: IPRATROPIUM BROMIDE/ALBUTEROL respimat INH INH SCH ×4 (08:44→19:45)
[2016-09-23] MEDS: PANTOprazole SOD 40 MG TAB PO SCH (08:44)
[2016-09-23] MEDS: FLUOXETINE HCL 20 MG CAP PO SCH (08:44)
--- NOTE | 2016-09-23 12:46 | Progress Note ---
Internal Med Progress Note Date of Service: Sep 23, 2016. Provider Documentation: SUBJECTIVE: The patient was seen and examined Bp is maintained at >100 No complaints today Feels much better Getting PT -will need rehab OBJECTIVE: Vital Signs-as noted below Exam: General-No distress at rest Eyes-normal ENT-normal Neck-supple Lungs-clear to auscultate bilaterally Heart-Regular,no murmur appreciated Abdomen-Benign,no masses ,bowel sound present Extremities-No edema Neuro-AAOx3 Lab data as noted below. ASSESSMENT & PLAN: Chronic systolic heart failure secondary to ischemic cardiomyopathy S/P ICD (EF 15%) Low BP noted on 09/20/16 Received IV fluid with Caution Hold Diuretics Monitor for any SOB CXR-no CHF No symptoms of failure Clinically much better Blood pressure is maintained D/C any IVF Acute hypoxemic respiratory failure Presented with SOB,Tachypnea,using accessory muscles of respiration and was unable to finish a sentence during conversation Secondary to aspiration pneumonitis:secondary to Viral Gastroenteritis Likely contributed by Viral Gastroenteritis No sepsis on Admission Unasyn, Solu-Medrol one dose, nebs RTC p.r.n. Lactic acid is up to >4 Likely secondary to Hypotension Discontinue IVF Will change antibiotic to Augmentin and Prednisone to oral Hypertension Hold an antihypertensive for low BP Blood pressure is maintained though on the lower side Peripheral vascular disease as per records. Past tobacco abuse DVT prophylaxis with Lovenox subQ. Level 3 Code Status : okay with CPR. No intubation. Disposition PT/OT Waiting for placement Vital Signs: Date Time Temp Pulse Resp B/P Pulse Ox O2 Delivery O2 Flow Rate FiO2 09/23/16 12:11 37.0 64 16 106/63 97 Room Air 09/23/16 08:42 63 09/23/16 08:00 98 Nasal Cannula 2.0 09/23/16 07:47 36.8 66 16 102/63 98 2.0 09/23/16 04:00 Nasal Cannula 2.0 09/23/16 03:36 36.9 67 18 96/58 98 Nasal Cannula 2.0 09/23/16 00:00 Nasal Cannula 2.0 09/22/16 23:48 36.8 74 18 96/62 98 Nasal Cannula 2.0 09/22/16 20:15 Nasal Cannula 2.0 09/22/16 20:11 37.0 88 18 97/62 92 Room Air 09/22/16 16:15 Nasal Cannula 2.0
[2016-09-23] MEDS: SODIUM CHLORIDE 0.9% 1000ML 1,000 ML IV SCH (13:29)
[2016-09-23] MEDS: AMOXICILLIN/CLAVULANATE TAB 875 MG TAB PO SCH ×2 (13:52→19:46)
[2016-09-23] MEDS: DIVALPROEX 500 MG EXTENDED RELEASE TAB PO SCH (19:46)
[2016-09-23] MEDS: LISINOPRIL 2.5 MG TAB PO SCH (19:47)
[2016-09-23] MEDS: DIVALPROEX 250 MG EXTENDED REL TAB PO SCH (19:47)
[2016-09-23] MEDS: ATORVASTATIN 40 MG TAB PO SCH (19:48)
[2016-09-24] MEDS: SODIUM CHLORIDE 0.9% 1000ML 1,000 ML IV SCH (01:57)
[2016-09-24 05:03] VITALS: BP 95/62; PULSE 65; TEMP 36.6; O2SAT 94
[2016-09-24 08:00] VITALS: O2SAT 94
[2016-09-24 08:09] VITALS: BP 92/45; PULSE 94; TEMP 36.7; O2SAT 94
[2016-09-24] MEDS: FLUOXETINE HCL 20 MG CAP PO SCH (08:17)
[2016-09-24] MEDS: PANTOprazole SOD 40 MG TAB PO SCH (08:17)
[2016-09-24] MEDS: CLOPIDOGREL BISULFATE 75 MG TAB PO SCH (08:17)
[2016-09-24] MEDS: AMOXICILLIN/CLAVULANATE TAB 875 MG TAB PO SCH (08:17)
[2016-09-24] MEDS: DIGOXIN 0.125 MG TAB PO SCH (08:18)
[2016-09-24] MEDS: IPRATROPIUM BROMIDE/ALBUTEROL respimat INH INH SCH (08:19)
[2016-09-24] MEDS: METOPROLOL SUCC 25MG EXT REL TAB PO SCH (08:19)
[2016-09-24] MEDS: ASPIRIN 81 MG ECTAB PO SCH (08:19)
[2016-09-24 11:24] VITALS: BP 75/46; PULSE 63; TEMP 36.8; O2SAT 96
--- NOTE | 2016-09-24 11:31 | Progress Note ---
Internal Med Progress Note Date of Service: Sep 24, 2016. Provider Documentation: SUBJECTIVE: The patient was seen and examined Denies any symptoms Ready to be discharged Getting PT -will need rehab OBJECTIVE: Vital Signs-as noted below Exam: General-No distress at rest No dizziness on ambulation Eyes-normal ENT-normal Neck-supple Lungs-clear to auscultate bilaterally Heart-Regular,no murmur appreciated Abdomen-Benign,no masses ,bowel sound present Extremities-No edema Neuro-AAOx3 Lab data as noted below. ASSESSMENT & PLAN: Chronic systolic heart failure secondary to ischemic cardiomyopathy S/P ICD (EF 15%) Low BP noted on 09/20/16 Received IV fluid with Caution Hold Diuretics Monitor for any SOB CXR-no CHF No symptoms of failure Clinically much better Blood pressure is maintained ~100 D/C any IVF Discharge today Acute hypoxemic respiratory failure Presented with SOB,Tachypnea,using accessory muscles of respiration and was unable to finish a sentence during conversation Secondary to aspiration pneumonitis:secondary to Viral Gastroenteritis Likely contributed by Viral Gastroenteritis No sepsis on Admission Unasyn, Solu-Medrol one dose, nebs RTC p.r.n. Lactic acid is up to >4 Likely secondary to Hypotension Discontinue IVF Will change antibiotic to Augmentin and Prednisone to oral No more episodes of SOB and or desaturation Hypertension Hold an antihypertensive for low BP Blood pressure is maintained though on the lower side Peripheral vascular disease as per records. Past tobacco abuse DVT prophylaxis with Lovenox subQ. Level 3 Code Status : okay with CPR. No intubation. Disposition PT/OT Transfer to [facility] today Vital Signs: Date Time Temp Pulse Resp B/P Pulse Ox O2 Delivery O2 Flow Rate FiO2 09/24/16 11:24 36.8 63 16 75/46 96 Room Air 09/24/16 08:18 70 09/24/16 08:09 36.7 94 16 92/45 94 Room Air 09/24/16 08:00 94 Room Air 09/24/16 05:03 36.6 65 20 95/62 94 Room Air 09/24/16 04:00 Room Air 09/24/16 00:00 Room Air 09/23/16 20:36 37.0 71 16 107/66 96 Room Air 09/23/16 20:00 97 Room Air 09/23/16 19:42 86 107/66 1/24/17 16:00 97 Room Air 09/23/16 12:11 37.0 64 16 106/63 97 Room Air 09/23/16 12:00 97 Nasal Cannula 2.0
[2016-09-24 12:00] VITALS: O2SAT 95
[2016-09-24] MEDS ORDERED: LCTX PO (12:12)
[2016-09-24] MEDS ORDERED: AMOX1TAB43 PO (12:12)
--- NOTE | 2016-09-24 12:16 | Discharge Instructions ---
Discharge Instructions Admission Reason for Admission: Respiratory Failure, Acute Discharge Discharge Diagnosis / Problem: Pneumonia-Aspiration,Chronic Systolic Heart Failure Discharge Goals Goal(s): Prevent Disease Progression Activity Recommendations Activity Level: Assistance Required Therapies: Physical Therapy, Occupational Therapy . Additional Information Patient informed of condition: Yes Advance Directives: No DNR: No (Level III-No Mechanical Ventilation) Level of Care: Skilled Communicable Disease: No Prognosis: Stable Oxygen at (LPM): 2 liters/min as needed [place] Catheter: No Instructions / Follow-Up Instructions / Follow-Up Please make an appointment with your PCP in 1 week Current Hospital Diet Patient's current hospital diet: AHA Diet (Heart Healthy) Discharge Diet Recommended Diet: AHA Diet (Heart Healthy) Fluid Restriction: 1500 ml (6 cups) Pending Studies Studies pending at discharge: no Medical Emergencies . Who to Call and When: Medical Emergencies: If at any time you feel your situation is an emergency, please call 911 immediately. . Non-Emergent Contact Non-Emergency issues call your: Primary Care Provider . . "Provider Documentation" section prepared by Janneth Granado. Core Measure Problem Core Measures: None
[2016-09-24 14:18] VITALS: BP 75/46; PULSE 63; TEMP 36.8; O2SAT 95
--- NOTE | 2016-09-24 18:39 | Discharge Summary ---
Discharge Summary Admission Date: Sep 19, 2016 at 22:38 Discharge Date: Sep 24, 2016 Principal Diagnosis: Pneumonia-Aspiration,Chronic Systolic Heart Failure Secondary Diagnoses/Problems: Please see H&P Medication Reconciliation New Medications: Lactobacillus Acidophilus (Lactinex) Tab 2 TAB PO BID, #30 TAB Amoxicillin & Pot Clavulanate (Amoxicillin/Clavulanate P) 1 Tab Tab 875 MG PO BIDM for 5 Days, #10 TAB Continued Medications: Alendronate Sodium (Fosamax) 70 Mg Tab 70 MG PO WK, TAB TAKE THIS MEDICATION EVERY THURSDAY Aspirin Enteric Coated (Ecotrin Or Generic) 81 Mg Tab 81 MG PO DAILY, TAB Atorvastatin (Lipitor) 40 Mg Tab 40 MG PO HS, TAB Clopidogrel Bisulfate (Plavix) 75 Mg Tab 75 MG PO DAILY, TAB Dexlansoprazole (Dexilant) 60 Mg Cap 60 MG PO DAILY Digoxin (Digoxin) 0.125 Mg Tab 0.125 MG PO DAILY Divalproex Sodium (Divalproex Sodium ER) 250 Mg Tabcr 250 MG PO HS Divalproex Sodium (Divalproex Sodium ER) 500 Mg Tabcr 1000 MG PO HS Fluoxetine (Prozac) 40 Mg Cap 40 MG PO DAILY Furosemide (Lasix) 20 Mg Tab 20 MG PO Q2D, TAB Lisinopril (Lisinopril) 2.5 Mg Tab 1.25 MG PO HS, TAB Metoprolol Succ (Toprol Xl) (Toprol-Xl) 25 Mg Tabcr 25 MG PO DAILY, TAB Admission Information HPI (per Admitting provider): DATE OF ADMISSION: 09/19/2016 PRIMARY CARE DOCTOR: Dr. Sterling. Hx obtained from px and records. CHIEF COMPLAINT: Abdominal pain, nausea and vomiting. HISTORY OF PRESENT ILLNESS: Medical history significant for chronic systolic heart failure secondary to ischemic cardiomyopathy (EF 15%) sp ICD, history of CAD, CVA, seizure disorder, COPD, past tobacco abuse , PVD, chronic thrombocytopenia. Recent confinement last January 2014 for chest pain. A few days history of middle achy abdominal pain, nausea, vomiting. Good bowel movement. Patient denies chest pain, cough, shortness of breath sx. Noted to be hypoxemic in the Emergency Room. MEDICAL HISTORY: As above. 2D from February 2014 showed EF of 15%-20%. SURGERIES: ICD placement, knee surgery, appendectomy, hip surgery. HOME MEDICATIONS: Include aspirin, Fosamax, Lipitor, Plavix, Dexilant, digoxin, Lasix, Prozac, lisinopril, Toprol-XL. ALLERGIES: NAPROXEN. FAMILY HISTORY: Heart disease. PERSONAL AND SOCIAL HISTORY: past tobacci abuse, on disability. REVIEW OF SYSTEMS: As per HPI, all other ROS negative. PHYSICAL EXAMINATION: VITAL SIGNS: Blood pressure was noted to be 111/71, pulse rate 80, RR 18, temperature 37.6, sats 84 on room air. GENERAL: Noted to be chronically ill. No respiratory distress. SKIN: Pallor. HEENT: pale palp conjunctivae, dry mucosa. NECK: No JVD. Supple. CHEST: Decreased breath sounds, occ wheeze. HEART: Diminished S1, S2. ABDOMEN: Some distention. Minimal central tenderness. EXTREMITIES: No edema, no tenderness. NEUROLOGIC: No gross focality. LABS: Hemoglobin was noted to be 14, hematocrit 41, white cell count is 8, platelets 87. Sodium 140, potassium 3.8, chloride 104, CO2 of 25, BUN 16, creatinine 1, glucose was noted to be 114. D-dimer was abnormal. lactic acid of 3.7, trop N CTA patchy bibasilar airspace consolidation, left/inflammatory pneumonitis. CT abdomen and pelvis showed enterocolitis. ABG pH 7.37, pCO2 of 37, pO2 of 70 on 3 liters. ASSESSMENT: 1. Acute hypoxemic respiratory failure secondary to aspiration pneumonitis secondary to GI illness (viral gastroenteritis) No sepsis. 2. chronic systolic heart failure secondary to ischemic cardiomyopathy sp ICD (EF 15%) The patient is euvolemic to dry 3. Hypertension, blood pressure on the lower side. 4. hx CVA as per records 5. hx seizure dso on Valproic acid 6. peripheral vascular disease as per records. 7. past tobacco abuse 8. chronic thrombocytopenia PLAN: PCU supplemental O2. Unasyn, Solu-Medrol one dose; nebs RTC p.r.n. Gentle IV hydration. Hold home diuretics for now. Follow lactic acid. DVT prophylaxis SCDs re thrombocytopenia Level 3 Code Status : okay with CPR. No intubation. Hospital Course Chronic systolic heart failure secondary to ischemic cardiomyopathy S/P ICD (EF 15%) Low BP noted on 09/20/16 Received IV fluid with Caution Hold Diuretics Monitor for any SOB CXR-no CHF No symptoms of failure Clinically much better Blood pressure is maintained ~100 D/C any IVF Discharge today Acute hypoxemic respiratory failure Presented with SOB,Tachypnea,using accessory muscles of respiration and was unable to finish a sentence during conversation Secondary to aspiration pneumonitis:secondary to Viral Gastroenteritis Likely contributed by Viral Gastroenteritis No sepsis on Admission Unasyn, Solu-Medrol one dose, nebs RTC p.r.n. Lactic acid is up to >4 Likely secondary to Hypotension Discontinue IVF Will change antibiotic to Augmentin and Prednisone to oral No more episodes of SOB and or desaturation Hypertension Hold an antihypertensive for low BP Blood pressure is maintained though on the lower side Peripheral vascular disease as per records. Past tobacco abuse DVT prophylaxis with Lovenox subQ. Level 3 Code Status : okay with CPR. No intubation. Disposition PT/OT Transfer to [facility] today Total time spent on discharge = 35 minutes This includes examination of the patient, discharge planning, medication reconciliation, and communication with other providers. Discharge Instructions Admission Reason for Admission: Respiratory Failure, Acute Discharge Discharge Diagnosis / Problem: Pneumonia-Aspiration,Chronic Systolic Heart Failure Discharge Goals Goal(s): Prevent Disease Progression Activity Recommendations Activity Level: Assistance Required Therapies: Physical Therapy, Occupational Therapy . Additional Information Patient informed of condition: Yes Advance Directives: No DNR: No (Level III-No Mechanical Ventilation) Level of Care: Skilled Communicable Disease: No Prognosis: Stable Oxygen at (LPM): 2 liters/min as needed [place] Catheter: No Instructions / Follow-Up Instructions / Follow-Up Please make an appointment with your PCP in 1 week Current Hospital Diet Patient's current hospital diet: AHA Diet (Heart Healthy) Discharge Diet Recommended Diet: AHA Diet (Heart Healthy) Fluid Restriction: 1500 ml (6 cups) Pending Studies Studies pending at discharge: no Medical Emergencies . Who to Call and When: Medical Emergencies: If at any time you feel your situation is an emergency, please call 911 immediately. . Non-Emergent Contact Non-Emergency issues call your: Primary Care Provider . . "Provider Documentation" section prepared by Janneth Granado. Core Measure Problem Core Measures: None <Electronically signed by Janneth Granado M.D.> Additional Copies To Richardson Sterling M.D.
== END 2016-09-24 16:26 | DRG 177 ==
LOC: ENRESERVTM → ENRESERVDT → EDBD 17:53 → C.EDB 17:55 → C.MED 22:38
PROVIDERS: ADMIT Internal Medicine; ATTEND Internal Medicine
DX: J69.0 Pneumonitis due to inhalation of food and vomit (principal); J96.01 Acute respiratory failure with hypoxia; I50.22 Chronic systolic (congestive) heart failure; A08.4 Viral intestinal infection, unspecified; I25.5 Ischemic cardiomyopathy; I95.9 Hypotension, unspecified; I11.0 Hypertensive heart disease with heart failure; G40.909 Epilepsy, unspecified, not intractable, without status epilepticus; I73.9 Peripheral vascular disease, unspecified; D69.6 Thrombocytopenia, unspecified; I25.10 Atherosclerotic heart disease of native coronary artery without angina pectoris; Z95.810 Presence of automatic (implantable) cardiac defibrillator; Z86.73 Personal history of transient ischemic attack (TIA), and cerebral infarction without residual deficits; Z87.891 Personal history of nicotine dependence; Z79.02 Long term (current) use of antithrombotics/antiplatelets; Z79.82 Long term (current) use of aspirin; Z79.83 Long term (current) use of bisphosphonates; Z79.899 Other long term (current) drug therapy; Z88.6 Allergy status to analgesic agent; Z82.49 Family history of ischemic heart disease and other diseases of the circulatory system

== ENCOUNTER 2016-11-28 11:22 | Inpatient (IN) | payer OTHER ==
[~2016-11-28] VITALS: Ht 162.6 cm; Wt 60.3 kg
[2016-11-28] VITALS (8 sets, daily range): BP systolic 92–115; BP diastolic 48–66; PULSE 61–67; TEMP 36.6–36.9; O2SAT 84–100; Ht 162.6 cm; Wt 60.3 kg
[~2016-11-28 11:22] MED LIST changes: +AMOX1TAB43 PO; -DIGO0.1216 PO; -DOCU-94 PO; +LCTX PO; +LNX125 PO
--- NOTE | 2016-11-28 12:22 | DIAGNOSTIC IMAGING REPORT ---
LEFT SHOULDER MIN 2 VIEWS ROUTINE CLINICAL HISTORY: fall trauma. Pain. COMPARISON: 03/03/2016 DISCUSSION: Chronic deformity left humeral head and associated articular services. Moderate degenerative change acromioclavicular joint. No well-defined acute bony abnormality. There is no evidence for soft tissue swelling. IMPRESSION: Severe degenerative change left shoulder. No acute bony abnormality. Electronically signed by: Minesh Andersen M.D. 11/28/2016 12:20 PM Dictated Date/Time: 11/28/2016 12:18 PM
--- NOTE | 2016-11-28 12:23 | DIAGNOSTIC IMAGING REPORT ---
CHEST ONE VIEW PORTABLE CLINICAL HISTORY: ABDOMINAL PAIN/GI pain COMPARISON STUDY: 09/20/2016 FINDINGS: Improved aeration left lung base compared to the prior study. Lungs this time are considered clear. Permanent unipolar cardiac pacemaker. Mild underlying emphysematous change. IMPRESSION: Chronic and mild emphysematous change. No acute process. Electronically signed by: Minesh Andersen M.D. 11/28/2016 12:22 PM Dictated Date/Time: 11/28/2016 12:21 PM
--- NOTE | 2016-11-28 12:29 | EMERGENCY ROOM VISIT NOTE ---
History Report prepared by Shahid: Юлия Segura Under the Supervision of: Dr. Leo Alcantar D.O. First contact with patient: 11:39 Chief Complaint: FALL Stated Complaint: FALL/RIB PAIN History of Present Illness The patient is a 61 year old male who presents to the Emergency Room via EMS with complaints of persistent weakness starting a few days ago. The patient fell twice last week and once this morning. He was able to get up with assistance. The patient was initially complaining of rib pain which has now resolved. He currently denies any pain. He denies loss of consciousness, headache, chest pain, shortness of breath, pain in lower extremities, or any other complaints. He has a history of a stroke occurring a few years ago. Source of History: patient Onset: a few days ago Position: other (global) Symptom Intensity: No pain currently Quality: other (weakness) Timing: other (persistent) Associated Symptoms: No LOC, No SOB, No chest pain, No headache Review of Systems See HPI for pertinent positives & negatives. A total of 10 systems reviewed and were otherwise negative. Past Medical & Surgical Medical Problems: (1) CAD (coronary artery disease) (2) Cardiac defibrillator in situ (3) Cardiomyopathy (4) Carotid stenosis (5) Convulsions (6) CVA (cerebral infarction) (7) Depressive disorder (8) Dyslipidemia (9) GERD (gastroesophageal reflux disease) (10) History of alcohol abuse (11) History of atrial fibrillation (12) Idiopathic hypotension (13) Ischemic cardiomyopathy (14) Kidney stone (15) Left spastic hemiplegia (16) DE (myocardial infarction) (17) Osteoporosis (18) PUD (peptic ulcer disease) (19) S/P ORIF (open reduction internal fixation) fracture (20) Systolic CHF, chronic Surgical Problems: (1) H/O colonoscopy with polypectomy (2) H/O esophagogastroduodenoscopy (3) S/P appendectomy (4) S/P cardiac catheterization Family History FH: heart disease FATHER MOTHER Social History Smoking Status: Never Smoker Alcohol Use: none Marital Status: Housing Status: lives with family Occupation Status: disabled Current/Historical Medications Scheduled Alendronate Sodium (Fosamax), 70 MG PO WK Aspirin Enteric Coated (Ecotrin Or Generic), 81 MG PO DAILY Atorvastatin (Lipitor), 40 MG PO HS Clopidogrel Bisulfate (Plavix), 75 MG PO DAILY Dexlansoprazole (Dexilant), 60 MG PO DAILY Digoxin (Digoxin), 0.125 MG PO DAILY Divalproex Sodium (Divalproex Sodium ER), 250 MG PO HS Divalproex Sodium (Divalproex Sodium ER), 1,000 MG PO HS Fluoxetine (Prozac), 40 MG PO DAILY Furosemide (Lasix), 20 MG PO Q2D Lactobacillus Acidophilus (Lactinex), 2 TAB PO BID Lisinopril (Lisinopril), 1.25 MG PO HS Metoprolol Succ (Toprol Xl) (Toprol-Xl), 25 MG PO DAILY Allergies Coded Allergies: Naproxen (Verified Allergy, Mild, 11/28/16) Physical Exam Vital Signs Date Time Temp Pulse Resp B/P Pulse Ox O2 Delivery O2 Flow Rate FiO2 11/28/16 16:25 71 20 128/78 96 Nasal Cannula 2.0 11/28/16 15:00 69 18 121/73 97 11/28/16 14:37 84 20 122/71 98 11/28/16 14:26 84 20 111/63 98 11/28/16 13:07 66 110/69 11/28/16 12:31 68 16 110/69 96 Room Air 11/28/16 12:06 70 11/28/16 11:34 36.6 68 14 110/69 96 Room Air Physical Exam GENERAL: Patient is awake, alert, and in no acute distress. Patient is resting comfortably and showing no signs of anxiety EYES: The conjunctivae are clear. The pupils are round and reactive. EARS, NOSE, MOUTH AND THROAT: The nose is without any evidence of any deformity. Mucous membranes are moist tongue is midline NECK: The neck is nontender and supple. CHEST: Ecchymosis over the left chest wall. Tenderness over the left lateral chest wall. RESPIRATORY: Lung sounds are diminished throughout. There is no tachypnea or conversational dyspnea noted. CARDIOVASCULAR: Regular rate and rhythm noted there no murmurs rubs or gallops normal S1 normal S2 GASTROINTESTINAL: The abdomen is soft. Bowel sounds are present in all quadrants. Tenderness in the left upper quadrant to palpation, mild guarding to the left upper quadrant. PELVIS: The Pelvis is stable. No tenderness to palpation is noted. BACK: No midline tenderness or or step-off noted range of motion in flexion extension as well as rotation no signs of muscle spasm noted MUSCULOSKELETAL/EXTREMITIES: There is no evidence of gross deformity full range of motion is noted in the hips and shoulders. Ecchymosis over the left shoulder and mild swelling. SKIN: There is no obvious evidence of any rash. There are no petechiae, pallor or cyanosis noted. No pedal edema noted. Ecchymosis over the left chest wall, left shoulder, and left flank. NEUROLOGIC: Patient is awake alert and oriented x3 strength is symmetric Medical Decision & Procedures ER Provider Diagnostic Interpretation: X-ray results as stated below per interpretation by me and the radiologist. LEFT SHOULDER MIN 2 VIEWS ROUTINE CLINICAL HISTORY: fall trauma. Pain. COMPARISON: 03/03/2016 DISCUSSION: Chronic deformity left humeral head and associated articular services. Moderate degenerative change acromioclavicular joint. No well-defined acute bony abnormality. There is no evidence for soft tissue swelling. IMPRESSION: Severe degenerative change left shoulder. No acute bony abnormality. Electronically signed by: Minesh Andersen M.D. 11/28/2016 12:20 PM Dictated Date/Time: 11/28/2016 12:18 PM CHEST ONE VIEW PORTABLE CLINICAL HISTORY: ABDOMINAL PAIN/GI pain COMPARISON STUDY: 09/20/2016 FINDINGS: Improved aeration left lung base compared to the prior study. Lungs this time are considered clear. Permanent unipolar cardiac pacemaker. Mild underlying emphysematous change. IMPRESSION: Chronic and mild emphysematous change. No acute process. Electronically signed by: Minesh Andersen M.D. 11/28/2016 12:22 PM Dictated Date/Time: 11/28/2016 12:21 PM SINGLE VIEW CHEST CLINICAL HISTORY: Status post chest tube placement. Pneumothorax. FINDINGS: An AP, portable, upright chest radiograph is compared to chest x-ray and chest CT dated 11/28/2016. The examination is degraded by portable technique and patient rotation. A single lead cardiac AICD largely obscures the left mid chest. There is mild apparent rightward deviation of the trachea. The heart is enlarged and there is atherosclerotic calcification of the thoracic aorta. The pulmonary vasculature is noncongested. A pigtail catheter projects below the left hemidiaphragm. There is left basilar atelectasis. A right apical pneumothorax is likely unchanged in size. No right-sided pneumothorax is seen. The skeletal structures are osteopenic. Arthritic change is present in the shoulders and thoracic spine. IMPRESSION: 1. A pigtail drainage catheter projects below the left hemidiaphragm. Exact positioning cannot be determined on this examination. 2. A left apical pneumothorax is unchanged. 3. Left basilar opacities likely represent atelectasis. 4. The right lung appears clear. 5. Cardiomegaly and AICD. Electronically signed by: Thang Thomas M.D. 11/28/2016 3:33 PM Dictated Date/Time: 11/28/2016 3:30 PM CHEST ONE VIEW PORTABLE CLINICAL HISTORY: Chest tube reinsertion. COMPARISON STUDY: 11/28/2016 FINDINGS: The cardiac and mediastinal contours remain stable. There is a left subclavian implantable defibrillator. The left-sided chest tube has been replaced. The tip now extends cephalad and projects over the lateral aspect of the left hemithorax. The tip is obscured by the patient's pacemaker generator. No pneumothorax is visualized. There is left basilar atelectasis.[ IMPRESSION: Interval replacement of the left-sided chest tube which now appears in satisfactory position. No evidence of pneumothorax. Minor left basilar atelectasis. Electronically signed by: Gt Bearden M.D. 11/28/2016 4:46 PM Dictated Date/Time: 11/28/2016 4:[address] results as stated below per my review and radiologist interpretation. HEAD CT NONCONTRAST CT DOSE: 1861.07 mGy.cm HISTORY: Trauma fall TECHNIQUE: Multiaxial CT images of the head were performed without the use of intravenous contrast. Comparison: None. Findings: The paranasal sinuses and mastoid air cells are clear. The calvarium and skull base are intact. The ventricles and sulci are within normal limits. There is no mass, hematoma, midline shift, or acute infarct. Large old right cerebellar infarct. Impression: No acute intracranial abnormality. Old right cerebral infarct Electronically signed by: Minesh Andersen M.D. 11/28/2016 2:25 PM Dictated Date/Time: 11/28/2016 1:[address] OF THE CHEST WITH IV CONTRAST CLINICAL HISTORY: Fall. Rib pain. COMPARISON STUDY: Chest CT September 19, 2016 and chest radiograph performed earlier today. TECHNIQUE: Following IV administration of 119 mL of Optiray-320, helical axial images of the chest were obtained. Images were viewed in the axial, sagittal and coronal planes. IV contrast was administered without complication. FINDINGS: There is no evidence of traumatic injury to the thoracic aorta. The heart is mildly enlarged. There is a left pacemaker/AICD. There is no pericardial effusion. A 1.8 cm subpleural opacity within left upper lobe is suggestive of a pulmonary contusion. There are dependent airspace opacities within the left lower lobe. There is a moderate left pneumothorax which occupies 30% of the left hemithorax. There is an acute nondisplaced fracture of the lateral left fourth rib. There are multiple old bilateral rib fractures. A right renal cyst is noted. The abdomen and pelvis will be reported separately. IMPRESSION: 1. Moderate left pneumothorax. 2. Acute nondisplaced left fourth rib fracture. Numerous old bilateral rib fractures. 3. 1.8 cm subpleural groundglass opacity within the left upper lobe consistent with a pulmonary contusion. Electronically signed by: Krzysztof Sneed M.D. 11/28/2016 2:08 PM Dictated Date/Time: 11/28/2016 1:[address] SCAN OF THE CERVICAL SPINE CLINICAL HISTORY: Fall with arm and neck pain. COMPARISON STUDY: No priors. TECHNIQUE: CT scan of the cervical spine is performed from the skull base to the upper thoracic spine. Images are reviewed in the axial, sagittal, and coronal planes. IV contrast was not administered for this examination. FINDINGS: Skeletal structures: The skeletal structures are osteopenic. There is no evidence of fracture or subluxation involving the cervical spine. Vertebral body height and alignment are maintained. The odontoid process and lateral masses are intact. The atlantoaxial articulation is preserved noting mild productive degenerative change. The spinous processes appear intact. Anterior osteophytes are seen from C4 through C7. There is mild to moderate multilevel cervical spondylosis. Uncovertebral and facet arthropathy contribute to neural foraminal narrowing at several levels. Intervertebral discs: The disc spaces appear maintained. Central canal: Grossly patent. Soft tissues: The prevertebral and paraspinous soft tissues are within normal limits. There is atherosclerotic calcification of the carotid bulbs. Calvarium: The visualized calvarium at the skull base appears intact. Brain parenchyma: Partially visualized brain parenchyma the skull base is within normal limits. Sinuses and mastoids: The visualized paranasal sinuses are clear. The mastoid air cells are well pneumatized. Lung apices: There is a moderate left apical pneumothorax. There is mild rightward deviation of the trachea. The right upper lobe lung parenchyma is clear as visualized. Pacemaker leads are noted in the left axilla. IMPRESSION: 1. There is no evidence of fracture or subluxation involving the cervical spine. 2. Osteopenia and spondylotic change as above. 3. Small to moderate left apical pneumothorax. There is mild rightward deviation of the trachea, and a developing tension pneumothorax is not excluded. Findings were called to Dr. Alcantar in the emergency department at the time of interpretation. Electronically signed by: Thang Thomas M.D. 11/28/2016 2:00 PM Dictated Date/Time: 11/28/2016 1:[address] SCAN OF THE ABDOMEN AND PELVIS WITH IV CONTRAST CLINICAL HISTORY: Fall. Generalized abdominal pain. COMPARISON STUDY: Abdominal CT dated 09/19/2016 and 02/22/2014. TECHNIQUE: Following the IV administration of 119 cc of Optiray 320, CT scan of the abdomen and pelvis is performed from the lung bases to the proximal femora. Images are reviewed in the axial, sagittal, and coronal planes. IV contrast was administered without complication. Automated dose control exposure was utilized. The examination is degraded by streak artifact from the patient's arms which could not be elevated above the abdomen. FINDINGS: Lung bases: Pacemaker in the left chest wall is partially imaged. Pacemaker leads are identified. The heart is normal in size and without pericardial effusion. The coronary arteries are densely calcified. Evaluation of the lung bases is degraded by motion artifact. A pneumothorax is partially imaged at the left lung base. There is a trace left pleural effusion with left basilar airspace opacities. The right lung base is grossly clear. Gynecomastia is observed. Liver: Evaluation of the liver is degraded by streak artifact. The contrast-enhanced liver is normal in size, contour, and attenuation. There is no intrahepatic biliary ductal dilatation. The hepatic veins and portal veins are patent. Gallbladder: Unremarkable. Spleen: Normal in size and attenuation. Pancreas: Atrophic. Adrenal glands: Unremarkable. Kidneys: The contrast enhanced kidneys demonstrate cortical atrophy and are without hydronephrosis. The kidneys enhance symmetrically. A 2.5 cm cyst arises from the right upper pole. There is a 4 mm nonobstructing right renal calculus. Subcentimeter cortical hypodensities in the left kidneys likely represent cysts but are too small for definitive characterization. Abdominal vasculature: The abdominal aorta is normal in course and caliber noting moderate atherosclerotic calcification. Bowel: The stomach is mildly distended with fluid. There are fluid-filled loops of small bowel seen in the right upper quadrant. There is no clear evidence of bowel obstruction. Liquid stool is noted throughout the colon and the colonic mucosa appears hyperemic. There is no colonic wall thickening or pericolonic infiltration. The appendix is not identified and reported surgically absent. Peritoneum: There is no intraperitoneal free air or abdominal ascites. Lymphadenopathy: None. Pelvic viscera: The bladder, prostate, and seminal vesicles are normal as visualized. Skeletal structures: The skeletal structures are osteopenic. No acute fracture is identified. There are healed right-sided rib fractures. No lytic or blastic lesions are seen. Postoperative change and posttraumatic deformity is noted in the left hip. 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 IMPRESSION: 1. Streak and motion degraded examination. 2. A pneumothorax is partially imaged at the left lung base. See report of chest CT performed concurrently for detailed intrathoracic findings. 3. There is trace left pleural effusion with left basilar airspace opacities. This could represent atelectasis versus a mild infectious/inflammatory pneumonitis or aspiration. Clinical correlation will be required. 4. There is no evidence of solid organ injury in the abdomen or pelvis. 5. No fracture is identified. 6. 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 Electronically signed by: Thang Thomas M.D. 11/28/2016 2:24 PM Dictated Date/Time: 11/28/2016 2:[address] OF THE CHEST WITHOUT IV CONTRAST CLINICAL HISTORY: Trauma. Chest tube. Pneumothorax. COMPARISON STUDY: 11/28/2016 CT DOSE: 254.79 mGy.cm TECHNIQUE: CT of the thorax was performed from the thoracic inlet to the lung bases. Images are reviewed in the axial, sagittal, and coronal planes. IV contrast was not administered for this examination. FINDINGS: Thyroid: Imaged portions of the thyroid gland are normal in appearance. Thoracic aorta: The thoracic aorta is normal in course and caliber, noting standard 3 vessel arch anatomy. Heart: There are moderate coronary artery calcifications. There is no significant pericardial effusion. There is a left subclavian implantable defibrillator. Lungs and pleural spaces: There is a left anterior pneumothorax the pleural separation of 16 mm. There are dependent atelectatic changes present within the left lower lobe. There is a 2 cm subpleural groundglass opacity within the left upper lobe, possibly representing a pulmonary contusion. There are minimal left basal airspace opacities, likely secondary to atelectasis or additional foci of contusion. There is a left-sided chest tube which is positioned subdiaphragmatically. Mediastinum: There is no mediastinal lymphadenopathy. Nicole: Clear. Axilla: Clear. Upper abdomen: Partially visualized upper abdominal viscera is within normal limits. Skeletal structures: There is a nondisplaced fracture the left fourth rib. There is equivocal nondisplaced fracture the left second rib. There are several old right-sided rib deformities. IMPRESSION: 1. The patient's left-sided chest tube is malpositioned and located subdiaphragmatically. 2. 16 mm left anterior pneumothorax 3. 2 cm subpleural groundglass opacity within the left upper lobe, likely representing a pulmonary contusion 4. Left basal air space opacities, likely atelectatic 5. Nondisplaced left fourth rib fracture. Equivocal nondisplaced left second rib fracture. Electronically signed by: Gt Bearden M.D. 11/28/2016 4:06 PM Dictated Date/Time: 11/28/2016 3:58 PM Laboratory Results Test 11/28/16 12:25 11/28/16 13:50 11/28/16 16:10 Immature Granulocyte % (Auto) 0.5 % White Blood Count 7.86 K/uL (4.8-10.8) Red Blood Count 3.89 M/uL (4.7-6.1) Hemoglobin 12.4 g/dL (14.0-18.0) Hematocrit 36.6 % (42-52) Mean Corpuscular Volume 94.1 fL (80-100) Mean Corpuscular Hemoglobin 31.9 pg (25-34) Mean Corpuscular Hemoglobin Concent 33.9 g/dl (32-36) Platelet Count 126 K/uL (130-400) Mean Platelet Volume 11.9 fL (7.4-10.4) Neutrophils (%) (Auto) 73.6 % Lymphocytes (%) (Auto) 12.3 % Monocytes (%) (Auto) 12.2 % Eosinophils (%) (Auto) 1.3 % Basophils (%) (Auto) 0.1 % Neutrophils # (Auto) 5.78 K/uL (1.4-6.5) Lymphocytes # (Auto) 0.97 K/uL (1.2-3.4) Monocytes # (Auto) 0.96 K/uL (0.11-0.59) Eosinophils # (Auto) 0.10 K/uL (0-0.5) Basophils # (Auto) 0.01 K/uL (0-0.2) Immature Granulocyte # (Auto) 0.04 K/uL (0.00-0.02) Prothrombin Time 11.3 SECONDS (9.0-12.0) Prothromb Time International Ratio 1.1 (0.9-1.1) Activated Partial Thromboplast Time 25.4 SECONDS (21.0-31.0) Partial Thromboplastin Ratio 1.0 Direct Bilirubin < 0.1 mg/dl (0-0.2) Total Creatine Kinase 64 U/L (39-308) Creatine Kinase MB 0.8 ng/ml (0.5-3.6) Creatine Kinase MB Ratio 1.3 (0-3.0) Troponin I < 0.015 ng/ml (0-0.045) Lipase 143 U/L (73-393) Urine Color DK YELLOW Urine Appearance CLEAR (CLEAR) Urine pH 6.0 (4.5-7.5) Urine Specific [place] > 1.045 (1.000-1.030) Urine Protein 1+ (NEG) Urine Glucose (UA) NEG (NEG) Urine Ketones TRACE (NEG) Urine Occult Blood 1+ (NEG) Urine Nitrite NEG (NEG) Urine Bilirubin NEG (NEG) Urine Urobilinogen NEG (NEG) Urine Leukocyte Esterase TRACE (NEG) Urine WBC (Auto) 10-30 /hpf (0-5) Urine RBC (Auto) >30 /hpf (0-4) Urine Hyaline Casts (Auto) 10-30 /lpf (0-5) Urine Epithelial Cells (Auto) >30 /lpf (0-5) Urine Bacteria (Auto) NEG (NEG) Urine Renal Epithelial Cells /lpf (0-5) Digoxin Level 0.4 ng/ml (0.8-2.0) Laboratory results per my review. Procedure Tube Thoracostomy Indication: Pneumothorax Written consent was obtained after the risks and benefits were explained, including but not limited to cardiac/liver/lung injury, bleeding, scarring, infection, pain, and bone/joint/nerve damage. At this time, the risks of the procedure are less than the risks of NOT performing the procedure. A time out was taken and the correct patient and site identified. The patient was prepped and draped in the standard surgical fashion. Pneumothorax kit tube was used. It was sutured into the chest wall. 1% lidocaine without epinephrine was infused over the fourth fifth intercostal space into the subcutaneous tissue. No bleeding was noted upon entering the pleural cavity. The patient tolerated the procedure well without complications. Reviewed placed and found it to be sub- diaphragmatically placed. The position was corrected. A postoperative x-ray was then performed which showed the thoracostomy tube in the correct position. ECG Indication: weakness Rate (beats per minute): 66 Rhythm: normal sinus Findings: T-wave inversion (anterior and lateral), no ectopy Comparison ECG Date: September 20, 2016 Change: no significant change ED Course 1139: The patient was evaluated in room C06. A complete history and physical examination were performed. 1422: The patient has been having shortness of breath with lying down flat. I performed a tube thoracostomy. Refer to procedure note for further details. 1425: I performed tube thoracostomy. Refer to procedure note for further details. 1509: I discussed the patient's case with Coby Monroy PA-C with [facility]. Upon reevaluation, the patient is resting comfortably. I discussed results and treatment plan with him. He verbalizes agreement and understanding. The patient will be evaluated for further management and care. 1541: I reevaluated the patient who is resting comfortably. 1616: I corrected the position of the thoracostomy tube. Medical Decision Prior records/ancillary studies reviewed. Triage Nursing notes reviewed. The patient's history was concerning for traumatic injury Differential diagnosis: Etiologies such as fracture, dislocation, intra-abdominal, pneumothorax, intrathoracic , intracranial, neurologic, as well as other traumatic pathologies were entertained. The patient is a 61-year-old male who presented to the emergency department after a fall. The patient has a history of multiple falls in the past. He fell most recently striking his left chest and has pain over his left shoulder and left side of his head. The patient initially did not complain of any shortness of breath but every time nursing staff would lay him flat he would become very tachypneic and hypoxic. The patient's initial chest x-ray did not show any acute disease. He was sent for CT of the head neck chest abdomen and pelvis and was found have a very significant pneumothorax on the left side. A chest tube was placed on the left side. This procedure was done by myself. Initially I went lower than usual because the patient's pacemaker site in the right go slightly anterior. This chest tube proved to be subdiaphragmatic. It was removed. A new chest tube was placed with improved placement and resolution of symptoms. The patient's chest x-ray still is very difficult to evaluate however he states that he feels subjectively better. The patient did not appear to have any intra-abdominal abnormality. I discussed his case with the on-call [facility] hospitalist group. They have agreed to evaluate the patient in the emergency department for further management and disposition. The patient was also evaluated by the on-call general surgeon for chest tube management. Consults Time Called: 1500 Consulting Physician: Coby Monroy PA-C with [facility] Returned Call: [phone] I discussed the patient's case with Coby Monroy PA-C with [facility]. Impression Primary Impression: Fall Additional Impressions: Shoulder contusion Left rib fracture Pneumothorax, left Blunt abdominal trauma Hypoxia Critical Care I have personally spent greater than 35 minutes of critical care time in the direct management of this patient. This includes bedside care, interpretation of diagnostic studies, and testing, discussion with consultants, patient, and family members, and other required patient management activities. This 35 minutes is in excess of all separately billable procedures. Scribe Attestation The scribe's documentation has been prepared under my direction and personally reviewed by me in its entirety. I confirm that the note above accurately reflects all work, treatment, procedures, and medical decision making performed by me. Departure Information Dispostion Being Evaluated By Hospitalist Referrals Richardson Sterling M.D. (PCP) Patient Instructions [facility] Problem Qualifiers Primary Impression: Fall Encounter type: initial encounter Qualified Codes: W19.XXXA - Unspecified fall, initial encounter Additional Impressions: Shoulder contusion Encounter type: initial encounter Laterality: left Qualified Codes: S40.012A - Contusion of left shoulder, initial encounter Left rib fracture Encounter type: initial encounter Rib fracture type: multiple ribs Fracture type: closed Qualified Codes: S22.42XA - Multiple fractures of ribs , left side, initial encounter for closed fracture Blunt abdominal trauma Encounter type: initial encounter Qualified Codes: S39.81XA - Other specified injuries of abdomen, initial encounter
[2016-11-28] MEDS ORDERED: OPTIRAY 320 IV PRN (12:30)
[2016-11-28 12:38] LABS: BASO % 0.1 %; BASO ABS # 0.01 K/uL (0-0.2); COMPLETE YES; EOS % 1.3 %; HEMATOCRIT 36.6 % (42-52); IG% 0.5 %; LYMPH % 12.3 %; LYMPH ABS # 0.97 K/uL (1.2-3.4); MEAN CELL VOLUME 94.1 fL (80-100); MEAN CORPUSCULAR HEMOGLOBIN 31.9 pg (25-34); MEAN CORPUSCULAR HGB CONC 33.9 g/dl (32-36); MEAN PLATELET VOLUME 11.9 fL (7.4-10.4); MONO % 12.2 %; NEUT % 73.6 %; PLATELET COUNT 126 K/uL (130-400); RED BLOOD COUNT 3.89 M/uL (4.7-6.1); WHITE BLOOD COUNT 7.86 K/uL (4.8-10.8)
[2016-11-28 12:48] LABS: INR 1.1 (0.9-1.1); PROTHROMBIN TIME (PATIENT) 11.3 SECONDS (9.0-12.0)
[2016-11-28 12:53] LABS: ALT/SGPT 17 U/L (12-78); BLOOD UREA NITROGEN 13 mg/dl (7-18); BUN/CREATININE RATIO 15.5 (10-20); CALCIUM 8.8 mg/dl (8.5-10.1); CARBON DIOXIDE 25 mmol/L (21-32); CHLORIDE 107 mmol/L (98-107); CREATININE 0.82 mg/dl (0.60-1.40); GLUCOSE 79 mg/dl (70-99); POTASSIUM 3.5 mmol/L (3.5-5.1); SODIUM 141 mmol/L (136-145)
[2016-11-28 12:58] LABS: ALKALINE PHOSPHATASE 50 U/L (45-117); AST/SGOT 18 U/L (15-37); CKMB/CK RATIO 1.3 (0-3.0)
--- NOTE | 2016-11-28 14:01 | DIAGNOSTIC IMAGING REPORT ---
CT SCAN OF THE CERVICAL SPINE CLINICAL HISTORY: Fall with arm and neck pain. COMPARISON STUDY: No priors. TECHNIQUE: CT scan of the cervical spine is performed from the skull base to the upper thoracic spine. Images are reviewed in the axial, sagittal, and coronal planes. IV contrast was not administered for this examination. FINDINGS: Skeletal structures: The skeletal structures are osteopenic. There is no evidence of fracture or subluxation involving the cervical spine. Vertebral body height and alignment are maintained. The odontoid process and lateral masses are intact. The atlantoaxial articulation is preserved noting mild productive degenerative change. The spinous processes appear intact. Anterior osteophytes are seen from C4 through C7. There is mild to moderate multilevel cervical spondylosis. Uncovertebral and facet arthropathy contribute to neural foraminal narrowing at several levels. Intervertebral discs: The disc spaces appear maintained. Central canal: Grossly patent. Soft tissues: The prevertebral and paraspinous soft tissues are within normal limits. There is atherosclerotic calcification of the carotid bulbs. Calvarium: The visualized calvarium at the skull base appears intact. Brain parenchyma: Partially visualized brain parenchyma the skull base is within normal limits. Sinuses and mastoids: The visualized paranasal sinuses are clear. The mastoid air cells are well pneumatized. Lung apices: There is a moderate left apical pneumothorax. There is mild rightward deviation of the trachea. The right upper lobe lung parenchyma is clear as visualized. Pacemaker leads are noted in the left axilla. IMPRESSION: 1. There is no evidence of fracture or subluxation involving the cervical spine. 2. Osteopenia and spondylotic change as above. 3. Small to moderate left apical pneumothorax. There is mild rightward deviation of the trachea, and a developing tension pneumothorax is not excluded. Findings were called to Dr. Alcantar in the emergency department at the time of interpretation. Electronically signed by: Thang Thomas M.D. 11/28/2016 2:00 PM Dictated Date/Time: 11/28/2016 1:54 PM
[2016-11-28 14:05] LABS: MANUAL MICROSCOPIC REQUIRED? NO; REVIEW REQ? YES; URINE APPEARANCE CLEAR (CLEAR); URINE BILIRUBIN NEG (NEG); URINE COLOR DK YELLOW; URINE EPITHELIAL CELL AUTO >30 /lpf (0-5); URINE NITRITE NEG (NEG); URINE SPECIFIC GRAVITY > 1.045 (1.000-1.030); UROBILINOGEN NEG (NEG)
--- NOTE | 2016-11-28 14:09 | DIAGNOSTIC IMAGING REPORT ---
CT OF THE CHEST WITH IV CONTRAST CLINICAL HISTORY: Fall. Rib pain. COMPARISON STUDY: Chest CT September 19, 2016 and chest radiograph performed earlier today. TECHNIQUE: Following IV administration of 119 mL of Optiray-320, helical axial images of the chest were obtained. Images were viewed in the axial, sagittal and coronal planes. IV contrast was administered without complication. FINDINGS: There is no evidence of traumatic injury to the thoracic aorta. The heart is mildly enlarged. There is a left pacemaker/AICD. There is no pericardial effusion. A 1.8 cm subpleural opacity within left upper lobe is suggestive of a pulmonary contusion. There are dependent airspace opacities within the left lower lobe. There is a moderate left pneumothorax which occupies 30% of the left hemithorax. There is an acute nondisplaced fracture of the lateral left fourth rib. There are multiple old bilateral rib fractures. A right renal cyst is noted. The abdomen and pelvis will be reported separately. IMPRESSION: 1. Moderate left pneumothorax. 2. Acute nondisplaced left fourth rib fracture. Numerous old bilateral rib fractures. 3. 1.8 cm subpleural groundglass opacity within the left upper lobe consistent with a pulmonary contusion. Electronically signed by: Krzysztof Sneed M.D. 11/28/2016 2:08 PM Dictated Date/Time: 11/28/2016 1:59 PM
--- NOTE | 2016-11-28 14:25 | DIAGNOSTIC IMAGING REPORT ---
CT SCAN OF THE ABDOMEN AND PELVIS WITH IV CONTRAST CLINICAL HISTORY: Fall. Generalized abdominal pain. COMPARISON STUDY: Abdominal CT dated 09/19/2016 and 02/22/2014. TECHNIQUE: Following the IV administration of 119 cc of Optiray 320, CT scan of the abdomen and pelvis is performed from the lung bases to the proximal femora. Images are reviewed in the axial, sagittal, and coronal planes. IV contrast was administered without complication. Automated dose control exposure was utilized. The examination is degraded by streak artifact from the patient's arms which could not be elevated above the abdomen. FINDINGS: Lung bases: Pacemaker in the left chest wall is partially imaged. Pacemaker leads are identified. The heart is normal in size and without pericardial effusion. The coronary arteries are densely calcified. Evaluation of the lung bases is degraded by motion artifact. A pneumothorax is partially imaged at the left lung base. There is a trace left pleural effusion with left basilar airspace opacities. The right lung base is grossly clear. Gynecomastia is observed. Liver: Evaluation of the liver is degraded by streak artifact. The contrast-enhanced liver is normal in size, contour, and attenuation. There is no intrahepatic biliary ductal dilatation. The hepatic veins and portal veins are patent. Gallbladder: Unremarkable. Spleen: Normal in size and attenuation. Pancreas: Atrophic. Adrenal glands: Unremarkable. Kidneys: The contrast enhanced kidneys demonstrate cortical atrophy and are without hydronephrosis. The kidneys enhance symmetrically. A 2.5 cm cyst arises from the right upper pole. There is a 4 mm nonobstructing right renal calculus. Subcentimeter cortical hypodensities in the left kidneys likely represent cysts but are too small for definitive characterization. Abdominal vasculature: The abdominal aorta is normal in course and caliber noting moderate atherosclerotic calcification. Bowel: The stomach is mildly distended with fluid. There are fluid-filled loops of small bowel seen in the right upper quadrant. There is no clear evidence of bowel obstruction. Liquid stool is noted throughout the colon and the colonic mucosa appears hyperemic. There is no colonic wall thickening or pericolonic infiltration. The appendix is not identified and reported surgically absent. Peritoneum: There is no intraperitoneal free air or abdominal ascites. Lymphadenopathy: None. Pelvic viscera: The bladder, prostate, and seminal vesicles are normal as visualized. Skeletal structures: The skeletal structures are osteopenic. No acute fracture is identified. There are healed right-sided rib fractures. No lytic or blastic lesions are seen. Postoperative change and posttraumatic deformity is noted in the left hip. 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 IMPRESSION: 1. Streak and motion degraded examination. 2. A pneumothorax is partially imaged at the left lung base. See report of chest CT performed concurrently for detailed intrathoracic findings. 3. There is trace left pleural effusion with left basilar airspace opacities. This could represent atelectasis versus a mild infectious/inflammatory pneumonitis or aspiration. Clinical correlation will be required. 4. There is no evidence of solid organ injury in the abdomen or pelvis. 5. No fracture is identified. 6. 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 Electronically signed by: Thang Thomas M.D. 11/28/2016 2:24 PM Dictated Date/Time: 11/28/2016 2:15 PM
--- NOTE | 2016-11-28 14:26 | DIAGNOSTIC IMAGING REPORT ---
HEAD CT NONCONTRAST CT DOSE: 1861.07 mGy.cm HISTORY: Trauma fall TECHNIQUE: Multiaxial CT images of the head were performed without the use of intravenous contrast. Comparison: None. Findings: The paranasal sinuses and mastoid air cells are clear. The calvarium and skull base are intact. The ventricles and sulci are within normal limits. There is no mass, hematoma, midline shift, or acute infarct. Large old right cerebellar infarct. Impression: No acute intracranial abnormality. Old right cerebral infarct Electronically signed by: Minesh Andersen M.D. 11/28/2016 2:25 PM Dictated Date/Time: 11/28/2016 1:52 PM
--- NOTE | 2016-11-28 15:34 | DIAGNOSTIC IMAGING REPORT ---
SINGLE VIEW CHEST CLINICAL HISTORY: Status post chest tube placement. Pneumothorax. FINDINGS: An AP, portable, upright chest radiograph is compared to chest x-ray and chest CT dated 11/28/2016. The examination is degraded by portable technique and patient rotation. A single lead cardiac AICD largely obscures the left mid chest. There is mild apparent rightward deviation of the trachea. The heart is enlarged and there is atherosclerotic calcification of the thoracic aorta. The pulmonary vasculature is noncongested. A pigtail catheter projects below the left hemidiaphragm. There is left basilar atelectasis. A right apical pneumothorax is likely unchanged in size. No right-sided pneumothorax is seen. The skeletal structures are osteopenic. Arthritic change is present in the shoulders and thoracic spine. IMPRESSION: 1. A pigtail drainage catheter projects below the left hemidiaphragm. Exact positioning cannot be determined on this examination. 2. A left apical pneumothorax is unchanged. 3. Left basilar opacities likely represent atelectasis. 4. The right lung appears clear. 5. Cardiomegaly and AICD. Electronically signed by: Thang Thomas M.D. 11/28/2016 3:33 PM Dictated Date/Time: 11/28/2016 3:30 PM
[2016-11-28] MEDS ORDERED: ONDANSETRON INJ 2 MG/ML 2 ML VIAL IV PRN ×2 (16:00→19:00)
[2016-11-28] MEDS ORDERED: ACETAMINOPHEN 325 MG TAB PO PRN (16:00)
--- NOTE | 2016-11-28 16:07 | DIAGNOSTIC IMAGING REPORT ---
CT OF THE CHEST WITHOUT IV CONTRAST CLINICAL HISTORY: Trauma. Chest tube. Pneumothorax. COMPARISON STUDY: 11/28/2016 CT DOSE: 254.79 mGy.cm TECHNIQUE: CT of the thorax was performed from the thoracic inlet to the lung bases. Images are reviewed in the axial, sagittal, and coronal planes. IV contrast was not administered for this examination. FINDINGS: Thyroid: Imaged portions of the thyroid gland are normal in appearance. Thoracic aorta: The thoracic aorta is normal in course and caliber, noting standard 3 vessel arch anatomy. Heart: There are moderate coronary artery calcifications. There is no significant pericardial effusion. There is a left subclavian implantable defibrillator. Lungs and pleural spaces: There is a left anterior pneumothorax the pleural separation of 16 mm. There are dependent atelectatic changes present within the left lower lobe. There is a 2 cm subpleural groundglass opacity within the left upper lobe, possibly representing a pulmonary contusion. There are minimal left basal airspace opacities, likely secondary to atelectasis or additional foci of contusion. There is a left-sided chest tube which is positioned subdiaphragmatically. Mediastinum: There is no mediastinal lymphadenopathy. Nicole: Clear. Axilla: Clear. Upper abdomen: Partially visualized upper abdominal viscera is within normal limits. Skeletal structures: There is a nondisplaced fracture the left fourth rib. There is equivocal nondisplaced fracture the left second rib. There are several old right-sided rib deformities. IMPRESSION: 1. The patient's left-sided chest tube is malpositioned and located subdiaphragmatically. 2. 16 mm left anterior pneumothorax 3. 2 cm subpleural groundglass opacity within the left upper lobe, likely representing a pulmonary contusion 4. Left basal air space opacities, likely atelectatic 5. Nondisplaced left fourth rib fracture. Equivocal nondisplaced left second rib fracture. Electronically signed by: Gt Bearden M.D. 11/28/2016 4:06 PM Dictated Date/Time: 11/28/2016 3:58 PM
--- NOTE | 2016-11-28 16:34 | Progress Note ---
Progress Note Date of Service Nov 28, 2016. Progress Note ATTENDING ADDENDUM care coordinated with CHARU Chaudhary please refer to her notes for full details, I agree with her notes patient seen and examined, records reviewed by myself as well on exam, patient seen laying in bed, alert, oriented x 3 states his breathing is better after insertion of chest tube denies active dyspnea, chest pain no cough, abdominal pain, nausea/vomiting, changes with urination or bowel movement no other symptoms VS noted and reviewed oriented x 3, not in distress, speaks in sentences with no effort nor accessory muscle use normal rate, regular rhythm, no murmurs decreased breath sounds left lung, clear on the right non distended, soft, nontender no bipedal edema, erythema, warmth left upper arm 0/5 motor strength WBC 12.[address] chest: 1. Moderate left pneumothorax. 2. Acute nondisplaced left fourth rib fracture. Numerous old bilateral rib fractures. 3. 1.8 cm subpleural groundglass opacity within the left upper lobe consistent with a pulmonary contusion. a/p> 61 year old male with history of CVA, Left sided Residuals, Cardiomyopathy EF 15 %, presenting with shortness of breath, multiple falls. LEFT PNEUMOTHORAX ACUTE NON DISPLACED LEFT FOURTH RIB FRACTURE - s/p Chest Tube Insertion at the ER - will consult Thoracic Surgeon NPO for now POSSIBLE UTI, ASPIRATION PNEUMONIA - ff up cultures will cover with Augmentin for now - Speech Tx eval MULTIPLE FALLS from Deconditioning? Residual Weakness from CVA? Underlying Infection? - PT/OT eval CHF, Ef 15% S/P AICD - euvolemic interrogate AICD other diagnoses and plan of care as per CHARU Chaudhary's notes Alejandro Hernandez MD
--- NOTE | 2016-11-28 16:38 | History and Physical ---
History & Physical Date & Time of Service: Nov 28, 2016 at 15:50 Chief Complaint: Fall/Rib Pain Primary Care Physician: Richardson Sterling M.D. History of Present Illness Source: patient, clinic records, hospital records Patient seen and examined. 61 year old male with PMHx of CHF s/p ICD, CAD, CVA, COPD, and other problems listed below presents to the ED complaining of left rib pain following an unwitnessed fall prior to arrival. Patient states he was walking in his kitchen when he lost his balance and fell. He reports striking his head and was unable to get up without help. He reports that he immediately had sharp left sided rib pain and associated SOB. EMS was called and brought patient to the ED for further evaluation. Patient reports he has chronic left sided weakness following his stroke and he has multiple falls that he believes is secondary to this. He denies fevers, chills, URI symptoms, chest pain, palpitations, nausea, vomiting, diarrhea, dysuria, calf pain and edema. In the ED CT head was negative, CT chest showed moderate 30% left pneumothorax, and left fourth rib fracture. Chest tube was placed. Patient will be admitted for further workup and treatment. Past Medical/Surgical History Medical Problems: (1) CAD (coronary artery disease) Status: Chronic (2) Cardiac defibrillator in situ Status: Chronic (3) Cardiomyopathy Status: Chronic (4) Carotid stenosis Status: Chronic (5) Convulsions Permanent Comment: EEG abnormal in 2006- potential seizure focus in R temporal region 09/10/06 Status: Chronic (6) CVA (cerebral infarction) Status: Chronic (7) Depressive disorder Status: Chronic (8) Dyslipidemia Status: Chronic (9) GERD (gastroesophageal reflux disease) Status: Chronic (10) Idiopathic hypotension Status: Chronic (11) Ischemic cardiomyopathy Status: Chronic (12) Kidney stone Status: Chronic (13) Left spastic hemiplegia Status: Chronic (14) OR (myocardial infarction) Status: Resolved (15) Osteoporosis Status: Chronic (16) PUD (peptic ulcer disease) Status: Chronic (17) S/P ORIF (open reduction internal fixation) fracture Permanent Comment: 01/07/07 ORIF left tibial plateau fracture Status: Chronic (18) Systolic CHF, chronic Status: Chronic Surgical Problems: (1) H/O colonoscopy with polypectomy Status: Chronic (2) H/O esophagogastroduodenoscopy Status: Chronic (3) S/P appendectomy Status: Chronic (4) S/P cardiac catheterization Permanent Comment: 09/21/2014- 60% prox LAD, 50% mid and distal, medical management Status: Chronic Family History FH: heart disease FATHER MOTHER Social History Smoking Status: Never Smoker Alcohol Use: none Marital Status: Housing status: lives with family Occupational Status: disabled Immunizations History of Influenza Vaccine: N/A History of Tetanus Vaccine?: not with in the last ten yrs History of Pneumococcal: Unknown History of Hepatitis B Vaccine: No Multi-Drug Resistant Organisms History of MDRO: No Allergies Coded Allergies: Naproxen (Verified Allergy, Mild, 11/28/16) Home Medications Scheduled Alendronate Sodium (Fosamax), 70 MG PO WK Aspirin Enteric Coated (Ecotrin Or Generic), 81 MG PO DAILY Atorvastatin (Lipitor), 40 MG PO HS Clopidogrel Bisulfate (Plavix), 75 MG PO DAILY Dexlansoprazole (Dexilant), 60 MG PO DAILY Digoxin (Digoxin), 0.125 MG PO DAILY Divalproex Sodium (Divalproex Sodium ER), 250 MG PO HS Divalproex Sodium (Divalproex Sodium ER), 1,000 MG PO HS Fluoxetine (Prozac), 40 MG PO DAILY Furosemide (Lasix), 20 MG PO Q2D Lactobacillus Acidophilus (Lactinex), 2 TAB PO BID Lisinopril (Lisinopril), 1.25 MG PO HS Metoprolol Succ (Toprol Xl) (Toprol-Xl), 25 MG PO DAILY Review of Systems See above for pertinent positives & negatives. A total of 10 systems reviewed and were otherwise negative. Physical Exam Vital Signs Date Time Temp Pulse Resp B/P Pulse Ox O2 Delivery O2 Flow Rate FiO2 11/28/16 15:00 69 18 121/73 97 11/28/16 14:37 84 20 122/71 98 11/28/16 14:26 84 20 111/63 98 11/28/16 13:07 66 110/69 11/28/16 12:31 68 16 110/69 96 Room Air 11/28/16 12:06 70 11/28/16 11:34 36.6 68 14 110/69 96 Room Air General Appearance: + pertinent finding (Pleasant WD/WN 61 year old male who appears older than stated age lying in bed in NAD ) Head: normocephalic, atraumatic Eyes: PERRL, EOMI, sclerae normal ENT: hearing grossly normal, pharynx normal Neck: supple, no JVD Respiratory/Chest: lungs clear, normal breath sounds (decreased breath sounds left lung ), no respiratory distress, no accessory muscle use, + pertinent finding (left chest tube in placed ) Cardiovascular: regular rate, rhythm, no edema, no gallop, no JVD, no murmur, normal peripheral pulses Abdomen/GI: normal bowel sounds, non tender, soft, no organomegaly Back: normal inspection, no muscle spasm Extremities/Musculoskelatal: no calf tenderness, normal capillary refill, no pedal edema Neurologic/Psych: alert, oriented x 3, + pertinent finding (Hemiparesis LUE, decreased strenght LLE) Skin: normal color, warm/dry, no rash Lymphatic: no adenopathy Diagnostics Laboratory Results Results Past 24 Hours Test 11/28/16 12:25 11/28/16 13:50 11/28/16 15:21 Range/Units White Blood Count 7.86 4.8-10.8 K/uL Red Blood Count 3.89 4.7-6.1 M/uL Hemoglobin 12.4 14.0-18.0 g/dL Hematocrit 36.6 42-52 % Mean Corpuscular Volume 94.1 80-100 fL Mean Corpuscular Hemoglobin 31.9 25-34 pg Mean Corpuscular Hemoglobin Concent 33.9 32-36 g/dl Platelet Count 126 130-400 K/uL Mean Platelet Volume 11.9 7.4-10.4 fL Neutrophils (%) (Auto) 73.6 % Lymphocytes (%) (Auto) 12.3 % Monocytes (%) (Auto) 12.2 % Eosinophils (%) (Auto) 1.3 % Basophils (%) (Auto) 0.1 % Neutrophils # (Auto) 5.78 1.4-6.5 K/uL Lymphocytes # (Auto) 0.97 1.2-3.4 K/uL Monocytes # (Auto) 0.96 0.11-0.59 K/uL Eosinophils # (Auto) 0.10 0-0.5 K/uL Basophils # (Auto) 0.01 0-0.2 K/uL RDW Standard Deviation 52.9 36.4-46.3 fL RDW Coefficient of Variation 15.4 11.5-14.5 % Immature Granulocyte % (Auto) 0.5 % Immature Granulocyte # (Auto) 0.04 0.00-0.02 K/uL Prothrombin Time 11.3 9.0-12.0 SECONDS Prothromb Time International Ratio 1.1 0.9-1.1 Activated Partial Thromboplast Time 25.4 21.0-31.0 SECONDS Partial Thromboplastin Ratio 1.0 Sodium Level 141 136-145 mmol/L Potassium Level 3.5 3.5-5.1 mmol/L Chloride Level 107 98-107 mmol/L Carbon Dioxide Level 25 21-32 mmol/L Anion Gap 9.0 3-11 mmol/L Blood Urea Nitrogen 13 7-18 mg/dl Creatinine 0.82 0.60-1.40 mg/dl Est Creatinine Clear Calc Drug Dose 79.7 ml/min Estimated GFR () 109.8 Estimated GFR (Non- 94.8 BUN/Creatinine Ratio 15.5 10-20 Random Glucose 79 70-99 mg/dl Calcium Level 8.8 8.5-10.1 mg/dl Total Bilirubin 0.4 0.2-1 mg/dl Direct Bilirubin < 0.1 0-0.2 mg/dl Aspartate Amino Transf (AST/SGOT) 18 15-37 U/L Alanine Aminotransferase (ALT/SGPT) 17 12-78 U/L Alkaline Phosphatase 50 45-117 U/L Total Creatine Kinase 64 39-308 U/L Creatine Kinase MB 0.8 0.5-3.6 ng/ml Creatine Kinase MB Ratio 1.3 0-3.0 Troponin I < 0.015 0-0.045 ng/ml Total Protein 7.1 6.4-8.2 gm/dl Albumin 3.2 3.4-5.0 gm/dl Lipase 143 73-393 U/L Urine Color DK YELLOW Urine Appearance CLEAR CLEAR Urine pH 6.0 4.5-7.5 Urine Specific [place] > 1.045 1.000-1.030 Urine Protein 1+ NEG Urine Glucose (UA) NEG NEG Urine Ketones TRACE NEG Urine Occult Blood 1+ NEG Urine Nitrite NEG NEG Urine Bilirubin NEG NEG Urine Urobilinogen NEG NEG Urine Leukocyte Esterase TRACE NEG Urine WBC (Auto) 10-30 0-5 /hpf Urine RBC (Auto) >30 0-4 /hpf Urine Hyaline Casts (Auto) 10-30 0-5 /lpf Urine Epithelial Cells (Auto) >30 0-5 /lpf Urine Bacteria (Auto) NEG NEG Urine Renal Epithelial Cells 0-5 /lpf Microbiology Results 11/28/16 Urine Culture, Chris Batch Pending Diagnostic Radiology SHOULDER XR Per radiologist read: IMPRESSION: Severe degenerative change left shoulder. No acute bony abnormality. CXR Per radiologist read: IMPRESSION: Chronic and mild emphysematous change. No acute process. HEAD CT Per radiologist read: Impression: No acute intracranial abnormality. Old right cerebral infarct CHEST CT Per radiologist read: IMPRESSION: 1. Moderate left pneumothorax. 2. Acute nondisplaced left fourth rib fracture. Numerous old bilateral rib fractures. 3. 1.8 cm subpleural groundglass opacity within the left upper lobe consistent with a pulmonary contusion. C-SPINE CT Per radiologist read: IMPRESSION: 1. There is no evidence of fracture or subluxation involving the cervical spine. 2. Osteopenia and spondylotic change as above. 3. Small to moderate left apical pneumothorax. There is mild rightward deviation of the trachea, and a developing tension pneumothorax is not excluded. Findings were called to Dr. Alcantar in the emergency department at the time of interpretation. CT A/P Per radiologist read: IMPRESSION: 1. Streak and motion degraded examination. 2. A pneumothorax is partially imaged at the left lung base. See report of chest CT performed concurrently for detailed intrathoracic findings. 3. There is trace left pleural effusion with left basilar airspace opacities. This could represent atelectasis versus a mild infectious/inflammatory pneumonitis or aspiration. Clinical correlation will be required. 4. There is no evidence of solid organ injury in the abdomen or pelvis. 5. No fracture is identified. 6. 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 CXR Per radiologist read: IMPRESSION: 1. A pigtail drainage catheter projects below the left hemidiaphragm. Exact positioning cannot be determined on this examination. 2. A left apical pneumothorax is unchanged. 3. Left basilar opacities likely represent atelectasis. 4. The right lung appears clear. 5. Cardiomegaly and AICD. CT CHEST Per radiologist read: IMPRESSION: 1. The patient's left-sided chest tube is malpositioned and located subdiaphragmatically. 2. 16 mm left anterior pneumothorax 3. 2 cm subpleural groundglass opacity within the left upper lobe, likely representing a pulmonary contusion 4. Left basal air space opacities, likely atelectatic 5. Nondisplaced left fourth rib fracture. Equivocal nondisplaced left second rib fracture. Impression Assessment and Plan Complex 61 year old male presents to the ED following an unwitnessed fall 16mm LEFT ANTERIOR PNEUMOTHORAX -Admit to tele -CT chest shows left pneumothorax with possible developing tension pneumothorax. Chest tube placed by ED physician. Repeat CT scan for placement pending -Call out thoracic surgery for further input pending -hemodynamically stable, monitor in tele -keep npo for now -hold aspirin and plavix today d/t chest tube placement -additional management pending CT surgery input, see attending addendum LEFT FOURTH RIB FRACTURE -secondary to fall -incentive spirometry -pain control prn FREQUENT FALLS -likely secondary to left sided weakness post stroke r/o UTI -urine culture pending -fall precautions -discharge planning eval -PT/OT evals when medically stable POSSIBLE ASPIRATION PNEUMONITIS -CXR with possible consolidations, history of recent aspiration pneumonia -empirically cover with Augmentin SYSTOLIC CHF -S/P ICD -last echo with EF of 15-20% -appears euvolemic -continue Lasix, bb -continue digoxin, level pending CAD -stable -continue BB, Statin, Lisinopril -hold aspirin and plavix for now d/t chest tube placement discuss with Gen Surg re: resuming aspirin, plavix -monitor in tele H/O CVA -with residual left hemiparesis discuss with Gen Surg re: resuming aspirin, plavix -continue statin for secondary prevention -fall precautions H/O SEIZURES -continue Depakote DEPRESSION -continue Prozac COPD -stable CHRONIC THROMBOCYTOPENIA -platelets in the 120s -follow daiy DVT PROPHYLAXIS: SCDs CODE STATUS: LEVEL 3 NO MECHANICAL VENTILATION per discussion with the patient DISPO:In my clinical judgment this beneficiary meets acute admission criteria, established by [facility], that includes being hospitalized through two midnights. Patient seen in collaboration with Dr. Hernandez
--- NOTE | 2016-11-28 16:47 | DIAGNOSTIC IMAGING REPORT ---
CHEST ONE VIEW PORTABLE CLINICAL HISTORY: Chest tube reinsertion. COMPARISON STUDY: 11/28/2016 FINDINGS: The cardiac and mediastinal contours remain stable. There is a left subclavian implantable defibrillator. The left-sided chest tube has been replaced. The tip now extends cephalad and projects over the lateral aspect of the left hemithorax. The tip is obscured by the patient's pacemaker generator. No pneumothorax is visualized. There is left basilar atelectasis.[ IMPRESSION: Interval replacement of the left-sided chest tube which now appears in satisfactory position. No evidence of pneumothorax. Minor left basilar atelectasis. Electronically signed by: Gt Bearden M.D. 11/28/2016 4:46 PM Dictated Date/Time: 11/28/2016 4:44 PM
--- NOTE | 2016-11-28 17:26 | Medical Consult ---
Consultation Date of Consultation: Nov 28, 2016. Attending Physician: History of Present Illness 61 y/o male h/o CVA and left sided weakness fell at his home this morning. Had left chest pain and SOB. Initial CXR did not demonstrate pneumothorax which was then seen on CT. Small chest tube was placed in the ED but subdiaphragmatically (16 mm apical separation was then evident as well on XR). We were asked by the admitting hospitalist to see the patient. In the meantime the chest tube was replaced by the ER physician. The patients pain and SOB have improved. Repeat CXR shows resolution of apical separation. Past Medical/Surgical History Medical Problems: Medical Problems: (1) CAD (coronary artery disease) Status: Chronic (2) Cardiac defibrillator in situ Status: Chronic (3) Cardiomyopathy Status: Chronic (4) Carotid stenosis Status: Chronic (5) Convulsions Permanent Comment: EEG abnormal in 2006- potential seizure focus in R temporal region 09/10/06 Status: Chronic (6) CVA (cerebral infarction) Status: Chronic (7) Depressive disorder Status: Chronic (8) Dyslipidemia Status: Chronic (9) GERD (gastroesophageal reflux disease) Status: Chronic (10) Idiopathic hypotension Status: Chronic (11) Ischemic cardiomyopathy Status: Chronic (12) Kidney stone Status: Chronic (13) Left spastic hemiplegia Status: Chronic (14) SC (myocardial infarction) Status: Resolved (15) Osteoporosis Status: Chronic (16) PUD (peptic ulcer disease) Status: Chronic (17) S/P ORIF (open reduction internal fixation) fracture Permanent Comment: 01/07/07 ORIF left tibial plateau fracture Status: Chronic (18) Systolic CHF, chronic Status: Chronic Surgical Problems: (1) H/O colonoscopy with polypectomy Status: Chronic (2) H/O esophagogastroduodenoscopy Status: Chronic (3) S/P appendectomy Status: Chronic (4) S/P cardiac catheterization Permanent Comment: 09/21/2014- 60% prox LAD, 50% mid and distal, medical management Status: Chronic Family History FH: heart disease FATHER MOTHER Social History Smoking Status: Never Smoker Alcohol Use: none Marital Status: Housing Status: lives with family Occupation Status: disabled Allergies Coded Allergies: Naproxen (Verified Allergy, Mild, 11/28/16) Current Inpatient Medications Current Inpatient Medications Medications (Trade) Dose Ordered Sig/Ton Route Start Time Stop Time Status Last Admin Dose Admin Ioversol (Optiray 320) 100 ml UD PRN IV 11/28/16 12:30 12/02/16 12:29 Acetaminophen (Tylenol Tab) 650 mg Q4H PRN PO 11/28/16 16:00 12/28/16 15:59 Ondansetron HCl (Zofran Inj) 4 mg Q6H PRN IV 11/28/16 16:00 12/28/16 15:59 Amoxicillin/ Clavulanate Potassium (Augmentin Tab) 875 mg BIDM PO 11/28/16 18:00 12/05/16 17:59 UNV Alendronate Sodium (Fosamax Tab) 70 mg We@0700 PO 12/03/16 07:00 01/02/17 06:59 Atorvastatin Calcium (Lipitor Tab) 40 mg HS PO 11/28/16 21:00 12/28/16 20:59 Digoxin (Lanoxin Tab) 0.125 mg DAILY@1600 PO 11/29/16 16:00 12/29/16 15:59 Divalproex Sodium (Depakote Extended Rel Tab) 250 mg HS PO 11/28/16 21:00 12/28/16 20:59 Divalproex Sodium (Depakote Extended Rel Tab) 1,000 mg HS PO 11/28/16 21:00 12/28/16 20:59 Fluoxetine HCl (Prozac Cap) 40 mg DAILY PO 11/29/16 09:00 12/29/16 08:59 Furosemide (Lasix Tab) 20 mg Q2D@0900 PO 11/29/16 09:00 12/29/16 08:59 Lactobacillus Acidophilus (Floranex Tab) 2 tab BID PO 11/28/16 21:00 12/28/16 20:59 Lisinopril (Zestril Tab) 1.25 mg HS PO 11/28/16 21:00 12/28/16 20:59 Metoprolol Succinate (Toprol Xl Tab) 25 mg DAILY PO 11/29/16 09:00 12/29/16 08:59 Pantoprazole Sodium (Protonix Tab) 40 mg DAILY PO 11/29/16 09:00 12/29/16 08:59 Review of Systems Respiratory: + dyspnea on exertion, + shortness of breath Neurologic: + balance problems (has had several falls recently), + paralysis ( left arm), + weakness (left leg) Physical Exam Date Time Temp Pulse Resp B/P Pulse Ox O2 Delivery O2 Flow Rate FiO2 11/28/16 16:25 71 20 128/78 96 Nasal Cannula 2.0 11/28/16 15:00 69 18 121/73 97 11/28/16 14:37 84 20 122/71 98 11/28/16 14:26 84 20 111/63 98 11/28/16 13:07 66 110/69 11/28/16 12:31 68 16 110/69 96 Room Air 11/28/16 12:06 70 11/28/16 11:34 36.6 68 14 110/69 96 Room Air General Appearance: no apparent distress Respiratory/Chest: + decreased breath sounds (left apex) Cardiovascular: regular rate, rhythm Abdomen/GI: soft Laboratory Results Last 24 Hours Test 11/28/16 12:25 11/28/16 13:50 11/28/16 16:10 White Blood Count 7.86 K/uL Red Blood Count 3.89 M/uL Hemoglobin 12.4 g/dL Hematocrit 36.6 % Mean Corpuscular Volume 94.1 fL Mean Corpuscular Hemoglobin 31.9 pg Mean Corpuscular Hemoglobin Concent 33.9 g/dl Platelet Count 126 K/uL Mean Platelet Volume 11.9 fL Neutrophils (%) (Auto) 73.6 % Lymphocytes (%) (Auto) 12.3 % Monocytes (%) (Auto) 12.2 % Eosinophils (%) (Auto) 1.3 % Basophils (%) (Auto) 0.1 % Neutrophils # (Auto) 5.78 K/uL Lymphocytes # (Auto) 0.97 K/uL Monocytes # (Auto) 0.96 K/uL Eosinophils # (Auto) 0.10 K/uL Basophils # (Auto) 0.01 K/uL RDW Standard Deviation 52.9 fL RDW Coefficient of Variation 15.4 % Immature Granulocyte % (Auto) 0.5 % Immature Granulocyte # (Auto) 0.04 K/uL Prothrombin Time 11.3 SECONDS Prothromb Time International Ratio 1.1 Activated Partial Thromboplast Time 25.4 SECONDS Partial Thromboplastin Ratio 1.0 Sodium Level 141 mmol/L Potassium Level 3.5 mmol/L Chloride Level 107 mmol/L Carbon Dioxide Level 25 mmol/L Anion Gap 9.0 mmol/L Blood Urea Nitrogen 13 mg/dl Creatinine 0.82 mg/dl Est Creatinine Clear Calc Drug Dose 79.7 ml/min Estimated GFR () 109.8 Estimated GFR (Non- 94.8 BUN/Creatinine Ratio 15.5 Random Glucose 79 mg/dl Calcium Level 8.8 mg/dl Total Bilirubin 0.4 mg/dl Direct Bilirubin < 0.1 mg/dl Aspartate Amino Transf (AST/SGOT) 18 U/L Alanine Aminotransferase (ALT/SGPT) 17 U/L Alkaline Phosphatase 50 U/L Total Creatine Kinase 64 U/L Creatine Kinase MB 0.8 ng/ml Creatine Kinase MB Ratio 1.3 Troponin I < 0.015 ng/ml Total Protein 7.1 gm/dl Albumin 3.2 gm/dl Lipase 143 U/L Urine Color DK YELLOW Urine Appearance CLEAR Urine pH 6.0 Urine Specific [place] > 1.045 Urine Protein 1+ Urine Glucose (UA) NEG Urine Ketones TRACE Urine Occult Blood 1+ Urine Nitrite NEG Urine Bilirubin NEG Urine Urobilinogen NEG Urine Leukocyte Esterase TRACE Urine WBC (Auto) 10-30 /hpf Urine RBC (Auto) >30 /hpf Urine Hyaline Casts (Auto) 10-30 /lpf Urine Epithelial Cells (Auto) >30 /lpf Urine Bacteria (Auto) NEG Urine Renal Epithelial Cells /lpf Digoxin Level 0.4 ng/ml Assessment & Plan left 4th rib fx, traumatic pneumothorax chest tube has been repositioned, CXR and symptoms have improved continue chest tube to suction Dr. Berumen saw in the ER and will be following over the weekend
[2016-11-28] MEDS ORDERED: MAGNESIUM HYDROXIDE SUSP 30 ML UDC PO PRN (19:00)
[2016-11-28] MEDS ORDERED: NITROGLYCERIN 0.4 MG SL PER TAB CHARGE SL PRN (19:00)
[2016-11-28] MEDS ORDERED: AMOXICILLIN/CLAVULANATE TAB 875 MG TAB PO SCH (19:00)
[2016-11-28] MEDS ORDERED: ALUMINUM/MAGNESIUM/SIMETH (MAALOX MAX) 30 ML UDC PO PRN (19:00)
[2016-11-28] MEDS ORDERED: MoRPHine SULFATE 2 MG/ML CARP IV PRN (19:00)
--- NOTE | 2016-11-28 19:21 | Critical Care Consultation ---
Critical Care Consultation Date of Consultation: Nov 28, 2016. Attending Physician: Tyrese Millan DO Reason for Consultation: Pneumothorax, left fourth rib fracture History of Present Illness The patient is a 61-year-old male with a very complex set of comorbidities, including coronary artery disease, congestive heart failure with reduced ejection fraction, ischemic cardiomyopathy, history of atrial fibrillation, gastric esophageal reflux disease, history of CVA with residual left hemiplegia , and dyslipidemia He presented to the ER today after having a fall at home. Since he was walking towards kitchen to get some water, and notes that he fell his left side and felt a sudden pain in the left side of his chest. Of note he is had a stroke with chronic left-sided weakness compared to the right. He denies any lightheadedness or dizziness. He not have any palpitations, chest pain, shortness of breath, coughing, wheezing. He says he hit his head but he denies losing consciousness when he fell down. He is also really found by his ex- and son, who went on to call EMS to bring him to the emergency department for evaluate. In the ED chest x-ray and CT of the chest were performed, noting that he has left fourth rib fracture as well as a left moderate pneumothorax. A chest tube was inserted, and repeat chest CT shows that it was inserted subdiaphragmatically. CT brain was negative. At the present time, the patient notes that he feels completely fine. He denies having any pain to the site of the chest tube insertion. Denies feeling lightheaded, or foggy mentally. Past Medical/Surgical History Medical Problems: (1) CAD (coronary artery disease) (2) Cardiac defibrillator in situ (3) Cardiomyopathy (4) Carotid stenosis (5) Convulsions (6) CVA (cerebral infarction) (7) Depressive disorder (8) Dyslipidemia (9) GERD (gastroesophageal reflux disease) (10) History of alcohol abuse (11) History of atrial fibrillation (12) Idiopathic hypotension (13) Ischemic cardiomyopathy (14) Kidney stone (15) Left spastic hemiplegia (16) CT (myocardial infarction) (17) Osteoporosis (18) PUD (peptic ulcer disease) (19) S/P ORIF (open reduction internal fixation) fracture (20) Systolic CHF, chronic Surgical Problems: (1) H/O colonoscopy with polypectomy (2) H/O esophagogastroduodenoscopy (3) S/P appendectomy (4) S/P cardiac catheterization Family History FH: heart disease FATHER MOTHER Social History Smoking Status: Former Smoker Alcohol Use: none Marital Status: Housing Status: lives with family Occupation Status: disabled Allergies Coded Allergies: Naproxen (Verified Allergy, Mild, 11/28/16) Home Medications Scheduled Alendronate Sodium (Fosamax), 70 MG PO WK Aspirin Enteric Coated (Ecotrin Or Generic), 81 MG PO DAILY Atorvastatin (Lipitor), 40 MG PO HS Clopidogrel Bisulfate (Plavix), 75 MG PO DAILY Dexlansoprazole (Dexilant), 60 MG PO DAILY Digoxin (Digoxin), 0.125 MG PO DAILY Divalproex Sodium (Divalproex Sodium ER), 250 MG PO HS Divalproex Sodium (Divalproex Sodium ER), 1,000 MG PO HS Fluoxetine (Prozac), 40 MG PO DAILY Furosemide (Lasix), 20 MG PO Q2D Lactobacillus Acidophilus (Lactinex), 2 TAB PO BID Lisinopril (Lisinopril), 1.25 MG PO HS Metoprolol Succ (Toprol Xl) (Toprol-Xl), 25 MG PO DAILY Current Inpatient Medications Current Inpatient Medications Medications (Trade) Dose Ordered Sig/Ton Route Start Time Stop Time Status Last Admin Dose Admin Ioversol (Optiray 320) 100 ml UD PRN IV 11/28/16 12:30 12/02/16 12:29 Acetaminophen (Tylenol Tab) 650 mg Q4H PRN PO 11/28/16 16:00 12/28/16 15:59 Ondansetron HCl (Zofran Inj) 4 mg Q6H PRN IV 11/28/16 16:00 12/28/16 15:59 Amoxicillin/ Clavulanate Potassium (Augmentin Tab) 875 mg BIDM PO 11/28/16 19:00 12/05/16 18:59 Alendronate Sodium (Fosamax Tab) 70 mg We@0700 PO 12/03/16 07:00 01/02/17 06:59 Atorvastatin Calcium (Lipitor Tab) 40 mg HS PO 11/28/16 21:00 12/28/16 20:59 Digoxin (Lanoxin Tab) 0.125 mg DAILY@1600 PO 11/29/16 16:00 12/29/16 15:59 Divalproex Sodium (Depakote Extended Rel Tab) 250 mg HS PO 11/28/16 21:00 12/28/16 20:59 Divalproex Sodium (Depakote Extended Rel Tab) 1,000 mg HS PO 11/28/16 21:00 12/28/16 20:59 Fluoxetine HCl (Prozac Cap) 40 mg DAILY PO 11/29/16 09:00 12/29/16 08:59 Furosemide (Lasix Tab) 20 mg Q2D@0900 PO 11/29/16 09:00 12/29/16 08:59 Lactobacillus Acidophilus (Floranex Tab) 2 tab BID PO 11/28/16 21:00 12/28/16 20:59 Lisinopril (Zestril Tab) 1.25 mg HS PO 11/28/16 21:00 12/28/16 20:59 Metoprolol Succinate (Toprol Xl Tab) 25 mg DAILY PO 11/29/16 09:00 12/29/16 08:59 Pantoprazole Sodium (Protonix Tab) 40 mg DAILY PO 11/29/16 09:00 12/29/16 08:59 Review of Systems A 10 point review systems was negative unless stated above in history of presenting illness Physical Exam Date Time Temp Pulse Resp B/P Pulse Ox O2 Delivery O2 Flow Rate FiO2 11/28/16 18:25 36.6 67 21 115/66 100 Nasal Cannula 2.0 11/28/16 16:25 71 20 128/78 96 Nasal Cannula 2.0 11/28/16 15:00 69 18 121/73 97 11/28/16 14:37 84 20 122/71 98 11/28/16 14:26 84 20 111/63 98 11/28/16 13:07 66 110/69 11/28/16 12:31 68 16 110/69 96 Room Air 11/28/16 12:06 70 11/28/16 11:34 36.6 68 14 110/69 96 Room Air General Appearance: WD/WN, no apparent distress Head: normocephalic, atraumatic Eyes: normal inspection, PERRL, EOMI ENT: hearing grossly normal, pharynx normal Neck: supple, no adenopathy, no JVD Respiratory/Chest: chest non-tender, lungs clear, normal breath sounds, no respiratory distress Diminished breath sounds on the right lung; no audible wheezing or crackles Chest tube in place, no bleeding at the site of insertion Cardiovascular: regular rate, rhythm, no edema, no gallop, no murmur Abdomen/GI: normal bowel sounds, non tender, soft Back: normal inspection, no CVA tenderness Extremities/Musculoskeletal: normal inspection, no calf tenderness, no pedal edema Spastic paresis left upper extremity Neurologic/Psych: alert, normal mood/affect, oriented x 3 ICU-CAM negative Skin: normal color, warm/dry, no rash Lymphatic: no adenopathy Laboratory Results Last 24 Hours Test 11/28/16 12:25 11/28/16 13:50 11/28/16 16:10 White Blood Count 7.86 K/uL Red Blood Count 3.89 M/uL Hemoglobin 12.4 g/dL Hematocrit 36.6 % Mean Corpuscular Volume 94.1 fL Mean Corpuscular Hemoglobin 31.9 pg Mean Corpuscular Hemoglobin Concent 33.9 g/dl Platelet Count 126 K/uL Mean Platelet Volume 11.9 fL Neutrophils (%) (Auto) 73.6 % Lymphocytes (%) (Auto) 12.3 % Monocytes (%) (Auto) 12.2 % Eosinophils (%) (Auto) 1.3 % Basophils (%) (Auto) 0.1 % Neutrophils # (Auto) 5.78 K/uL Lymphocytes # (Auto) 0.97 K/uL Monocytes # (Auto) 0.96 K/uL Eosinophils # (Auto) 0.10 K/uL Basophils # (Auto) 0.01 K/uL RDW Standard Deviation 52.9 fL RDW Coefficient of Variation 15.4 % Immature Granulocyte % (Auto) 0.5 % Immature Granulocyte # (Auto) 0.04 K/uL Prothrombin Time 11.3 SECONDS Prothromb Time International Ratio 1.1 Activated Partial Thromboplast Time 25.4 SECONDS Partial Thromboplastin Ratio 1.0 Sodium Level 141 mmol/L Potassium Level 3.5 mmol/L Chloride Level 107 mmol/L Carbon Dioxide Level 25 mmol/L Anion Gap 9.0 mmol/L Blood Urea Nitrogen 13 mg/dl Creatinine 0.82 mg/dl Est Creatinine Clear Calc Drug Dose 79.7 ml/min Estimated GFR () 109.8 Estimated GFR (Non- 94.8 BUN/Creatinine Ratio 15.5 Random Glucose 79 mg/dl Calcium Level 8.8 mg/dl Total Bilirubin 0.4 mg/dl Direct Bilirubin < 0.1 mg/dl Aspartate Amino Transf (AST/SGOT) 18 U/L Alanine Aminotransferase (ALT/SGPT) 17 U/L Alkaline Phosphatase 50 U/L Total Creatine Kinase 64 U/L Creatine Kinase MB 0.8 ng/ml Creatine Kinase MB Ratio 1.3 Troponin I < 0.015 ng/ml Total Protein 7.1 gm/dl Albumin 3.2 gm/dl Lipase 143 U/L Urine Color DK YELLOW Urine Appearance CLEAR Urine pH 6.0 Urine Specific [place] > 1.045 Urine Protein 1+ Urine Glucose (UA) NEG Urine Ketones TRACE Urine Occult Blood 1+ Urine Nitrite NEG Urine Bilirubin NEG Urine Urobilinogen NEG Urine Leukocyte Esterase TRACE Urine WBC (Auto) 10-30 /hpf Urine RBC (Auto) >30 /hpf Urine Hyaline Casts (Auto) 10-30 /lpf Urine Epithelial Cells (Auto) >30 /lpf Urine Bacteria (Auto) NEG Urine Renal Epithelial Cells /lpf Digoxin Level 0.4 ng/ml Diagnostic Results CT OF THE CHEST WITHOUT IV CONTRAST CLINICAL HISTORY: Trauma. Chest tube. Pneumothorax. COMPARISON STUDY: 11/28/2016 CT DOSE: 254.79 mGy.cm TECHNIQUE: CT of the thorax was performed from the thoracic inlet to the lung bases. Images are reviewed in the axial, sagittal, and coronal planes. IV contrast was not administered for this examination. FINDINGS: Thyroid: Imaged portions of the thyroid gland are normal in appearance. Thoracic aorta: The thoracic aorta is normal in course and caliber, noting standard 3 vessel arch anatomy. Heart: There are moderate coronary artery calcifications. There is no significant pericardial effusion. There is a left subclavian implantable defibrillator. Lungs and pleural spaces: There is a left anterior pneumothorax the pleural separation of 16 mm. There are dependent atelectatic changes present within the left lower lobe. There is a 2 cm subpleural groundglass opacity within the left upper lobe, possibly representing a pulmonary contusion. There are minimal left basal airspace opacities, likely secondary to atelectasis or additional foci of contusion. There is a left-sided chest tube which is positioned subdiaphragmatically. Mediastinum: There is no mediastinal lymphadenopathy. Nicole: Clear. Axilla: Clear. Upper abdomen: Partially visualized upper abdominal viscera is within normal limits. Skeletal structures: There is a nondisplaced fracture the left fourth rib. There is equivocal nondisplaced fracture the left second rib. There are several old right-sided rib deformities. IMPRESSION: 1. The patient's left-sided chest tube is malpositioned and located subdiaphragmatically. 2. 16 mm left anterior pneumothorax 3. 2 cm subpleural groundglass opacity within the left upper lobe, likely representing a pulmonary contusion 4. Left basal air space opacities, likely atelectatic 5. Nondisplaced left fourth rib fracture. Equivocal nondisplaced left second rib fracture. Electronically signed by: Gt Bearden M.D. 11/28/2016 4:06 PM Dictated Date/Time: 11/28/2016 3:58 PM Assessment & Plan This is a 61-year-old male presents following problems - Left-sided pneumothorax - Left fourth rib fracture - Malplacement of left-sided chest tube - Coronary artery disease - History of atrial fibrillation - Congestive heart failure with reduced ejection fraction - History of stroke with residual left hemiplegia and left upper extremity - Hypertension - Dyslipidemia - GERD - Depression - Bipolar disorder Our plan for him is as follows: Neurology - ICU-CAM negative - Monitor daily can delirium screen - Depression: Continue fluoxetine - Bipolar: Continue Depakote - History of CVA: Residual left upper cavity hemiplegia, no changes on exam - Hitting head from fall: CT brain negative, no pain currently, continue to monitor clinically - Pain: Continue Tylenol Morphine 2 mg IV every 2 hours when necessary for pain Cardiovascular - Blood pressure remains stable - Heart rate 60-70 - History of CAD: Continue lisinopri,l metoprolol and metoprolol Hold ASA and clopidogrel due to chest tube insertion and risk of bleeding - Hypertension: Continue lisinopril, metoprolol - Congestive heart failure with reduced ejection fraction: Continue lisinopril, metoprolol, Lasix - History of atrial fibrillation: Continue the metoprolol and digoxin Patient not on anticoagulations prior to arrival; would not start at this time given pneumothorax and recent chest tube insertion Respiratory - Respiratory rate 18-20 - Patient saturating 96-100% on 2 L by nasal cannula - Patient started on empiric treatment for PNA: no clear evidence on CXR; will discontinue - Left fourth refracture: Tylenol when necessary for pain, morphine IV when necessary for pain - Left pneumothorax: Chest tube inserted - Malplacement subdiaphragmatically, surgery has been consult and is fond the patient, we thank them further recommendations Abdomen - Patient to be kept nothing by mouth, for possible surgery for malplaced chest tube - GERD: Pantoprazole 40 mmol by mouth daily Renal Endocrine - Electrolytes within normal limits; will check with morning labs - No evidence of kidney dysfunction; monitor creatinine with daily labs - Patient is of a history of systolic CHF; we'll have to do strict I&O monitoring, with daily weights, and assessment of fluid balance - Osteoporosis: Continue Fosamax Heme / ID - Patient afebrile on arrival, no evidence of infection - Fall does not appear to be syncopal, therefore differential UTI unlikely but will check a UA on patient - WBC 7 - Hemoglobin 12.4; hematocrit 36.6, currently at baseline - Platelet 126 - Malpositioned left chest tube: Given intra-abdominal placement, I would be concerned that the risk of clinic injury The patient is hemodynamically stable right now, but I will continue to check every 4 H&H is to ensure that there is no evidence of ongoing bleeding overnight - DVT prophylaxis: SCD and teds only From clots going to [facility] which is contraindicated at this time due to chest tube placement and risk of bleeding CODE STATUS - Full with no mechanical ventilation DISPOSITION - ICU - OT and PT orders have been placed by the primary service Resident Physician Supervision Note: Dr. Conway was resident physician during care of patient. I separately evaluated patient and did history and exam. I discussed the case with the resident and generally agree with the findings and plan. trend H/H, chest tube on suction, will transfer to water [facility] around midnight. I have personally spent 35 minutes of critical care time in the direct management of this patient. This is a life/limb threatening event. This includes time spent evaluating patient, direct bedside care, chart review, placing orders, interpretation of diagnostic studies, discussion with consultants, patient, and family members, as well as other required patient management activities. This time is exclusive of all separately billable procedures, and teaching time and separate from and in addition to any other critical care service time. Documented By: Tommie Gregory DO
[2016-11-28 20:07] LABS: HEMATOCRIT 36.3 % (42-52)
[2016-11-28] MEDS: ATORVASTATIN 40 MG TAB PO SCH (20:54)
[2016-11-28] MEDS: LACTOBACILLUS ACIDOPHILUS (FLORANEX) TAB PO SCH (20:54)
[2016-11-28] MEDS: DIVALPROEX 250 MG EXTENDED REL TAB PO SCH (20:54)
[2016-11-28] MEDS: LISINOPRIL 2.5 MG TAB PO SCH (20:55)
[2016-11-28] MEDS: DIVALPROEX 500 MG EXTENDED RELEASE TAB PO SCH (20:56)
[2016-11-29] VITALS (27 sets, daily range): BP systolic 80–123; BP diastolic 47–81; PULSE 54–101; TEMP 36.5–37.5; O2SAT 93–100
[2016-11-29 05:22] LABS: HEMATOCRIT 34.4 % (42-52); MEAN CELL VOLUME 93.5 fL (80-100); MEAN CORPUSCULAR HEMOGLOBIN 31.3 pg (25-34); MEAN CORPUSCULAR HGB CONC 33.4 g/dl (32-36); MEAN PLATELET VOLUME 11.6 fL (7.4-10.4); PLATELET COUNT 104 K/uL (130-400); RED BLOOD COUNT 3.68 M/uL (4.7-6.1); WHITE BLOOD COUNT 5.64 K/uL (4.8-10.8)
[2016-11-29 05:41] LABS: CALCIUM 8.3 mg/dl (8.5-10.1); CREATININE 0.59 mg/dl (0.60-1.40); MAGNESIUM 2.2 mg/dl (1.8-2.4); POTASSIUM 3.5 mmol/L (3.5-5.1)
[2016-11-29 05:43] LABS: ALB/GLOB RATIO 0.8 (0.9-2); PHOSPHORUS 3.2 mg/dl (2.5-4.9)
--- NOTE | 2016-11-29 07:41 | DIAGNOSTIC IMAGING REPORT ---
CHEST ONE VIEW PORTABLE CLINICAL HISTORY: Follow up pneumothorax. COMPARISON STUDY: Chest radiograph November 28, 2016. FINDINGS: A left-sided pleural catheter is in place. No pneumothorax is visualized. There is a left subclavian pacer/AICD. Lung volumes are diminished. There is mild left basilar opacity. IMPRESSION: No pneumothorax. Left pleural catheter in place. Electronically signed by: Krzysztof Sneed M.D. 11/29/2016 7:40 AM Dictated Date/Time: 11/29/2016 7:38 AM
[2016-11-29] MEDS: METOPROLOL SUCC 25MG EXT REL TAB PO SCH (08:07)
[2016-11-29] MEDS: PANTOprazole SOD 40 MG TAB PO SCH (08:09)
[2016-11-29] MEDS: LACTOBACILLUS ACIDOPHILUS (FLORANEX) TAB PO SCH ×2 (08:09→20:32)
[2016-11-29] MEDS: FLUOXETINE HCL 20 MG CAP PO SCH (08:09)
[2016-11-29 09:13] LABS: HEMATOCRIT 33.5 % (42-52)
[2016-11-29] MEDS: FUROSEMIDE 20 MG TAB PO SCH (09:32)
--- NOTE | 2016-11-29 11:01 | Urology Consultation ---
History General Date of Service: Nov 29, 2016. Chief Complaint: hematuria Primary Care Physician: Richardson Sterling M.D. Pt seen a urologist before?: No History of Present Illness I am asked by Dr Haynes to evaluate and treat patient for hematuria. He is admitted after a fall at home with a rib fracture and a pneumothorax. He had a amaro placed in ER and urine has been pink to light red overnight He is on blood thinners. He is a former smoker having quit decades ago. He reports another episode of gross hematuria last year unrelated to a fall or an illness. Laboratory Results Past 24 Hours Test 11/28/16 12:25 11/28/16 13:50 11/28/16 16:10 11/28/16 19:55 Range/Units White Blood Count 7.86 4.8-10.8 K/uL Red Blood Count 3.89 4.7-6.1 M/uL Hemoglobin 12.4 12.2 14.0-18.0 g/dL Hematocrit 36.6 36.3 42-52 % Mean Corpuscular Volume 94.1 80-100 fL Mean Corpuscular Hemoglobin 31.9 25-34 pg Mean Corpuscular Hemoglobin Concent 33.9 32-36 g/dl Platelet Count 126 130-400 K/uL Mean Platelet Volume 11.9 7.4-10.4 fL Neutrophils (%) (Auto) 73.6 % Lymphocytes (%) (Auto) 12.3 % Monocytes (%) (Auto) 12.2 % Eosinophils (%) (Auto) 1.3 % Basophils (%) (Auto) 0.1 % Neutrophils # (Auto) 5.78 1.4-6.5 K/uL Lymphocytes # (Auto) 0.97 1.2-3.4 K/uL Monocytes # (Auto) 0.96 0.11-0.59 K/uL Eosinophils # (Auto) 0.10 0-0.5 K/uL Basophils # (Auto) 0.01 0-0.2 K/uL RDW Standard Deviation 52.9 36.4-46.3 fL RDW Coefficient of Variation 15.4 11.5-14.5 % Immature Granulocyte % (Auto) 0.5 % Immature Granulocyte # (Auto) 0.04 0.00-0.02 K/uL Prothrombin Time 11.3 9.0-12.0 SECONDS Prothromb Time International Ratio 1.1 0.9-1.1 Activated Partial Thromboplast Time 25.4 21.0-31.0 SECONDS Partial Thromboplastin Ratio 1.0 Sodium Level 141 136-145 mmol/L Potassium Level 3.5 3.5-5.1 mmol/L Chloride Level 107 98-107 mmol/L Carbon Dioxide Level 25 21-32 mmol/L Anion Gap 9.0 3-11 mmol/L Blood Urea Nitrogen 13 7-18 mg/dl Creatinine 0.82 0.60-1.40 mg/dl Est Creatinine Clear Calc Drug Dose 79.7 ml/min Estimated GFR () 109.8 Estimated GFR (Non- 94.8 BUN/Creatinine Ratio 15.5 10-20 Random Glucose 79 70-99 mg/dl Calcium Level 8.8 8.5-10.1 mg/dl Total Bilirubin 0.4 0.2-1 mg/dl Direct Bilirubin < 0.1 0-0.2 mg/dl Aspartate Amino Transf (AST/SGOT) 18 15-37 U/L Alanine Aminotransferase (ALT/SGPT) 17 12-78 U/L Alkaline Phosphatase 50 45-117 U/L Total Creatine Kinase 64 39-308 U/L Creatine Kinase MB 0.8 0.5-3.6 ng/ml Creatine Kinase MB Ratio 1.3 0-3.0 Troponin I < 0.015 0-0.045 ng/ml Total Protein 7.1 6.4-8.2 gm/dl Albumin 3.2 3.4-5.0 gm/dl Lipase 143 73-393 U/L Urine Color DK YELLOW Urine Appearance CLEAR CLEAR Urine pH 6.0 4.5-7.5 Urine Specific [place] > 1.045 1.000-1.030 Urine Protein 1+ NEG Urine Glucose (UA) NEG NEG Urine Ketones TRACE NEG Urine Occult Blood 1+ NEG Urine Nitrite NEG NEG Urine Bilirubin NEG NEG Urine Urobilinogen NEG NEG Urine Leukocyte Esterase TRACE NEG Urine WBC (Auto) 10-30 0-5 /hpf Urine RBC (Auto) >30 0-4 /hpf Urine Hyaline Casts (Auto) 10-30 0-5 /lpf Urine Epithelial Cells (Auto) >30 0-5 /lpf Urine Bacteria (Auto) NEG NEG Urine Renal Epithelial Cells 0-5 /lpf Digoxin Level 0.4 0.8-2.0 ng/ml Test 11/29/16 00:02 11/29/16 05:08 11/29/16 08:50 Range/Units Hemoglobin 12.0 11.5 11.3 14.0-18.0 g/dL Hematocrit 35.0 34.4 33.5 42-52 % White Blood Count 5.64 4.8-10.8 K/uL Red Blood Count 3.68 4.7-6.1 M/uL Mean Corpuscular Volume 93.5 80-100 fL Mean Corpuscular Hemoglobin 31.3 25-34 pg Mean Corpuscular Hemoglobin Concent 33.4 32-36 g/dl RDW Standard Deviation 52.0 36.4-46.3 fL RDW Coefficient of Variation 15.3 11.5-14.5 % Platelet Count 104 130-400 K/uL Mean Platelet Volume 11.6 7.4-10.4 fL Sodium Level 142 136-145 mmol/L Potassium Level 3.5 3.5-5.1 mmol/L Chloride Level 108 98-107 mmol/L Carbon Dioxide Level 29 21-32 mmol/L Anion Gap 5.0 3-11 mmol/L Blood Urea Nitrogen 9 7-18 mg/dl Creatinine 0.59 0.60-1.40 mg/dl Est Creatinine Clear Calc Drug Dose 108.8 ml/min Estimated GFR () 125.8 Estimated GFR (Non- 108.5 BUN/Creatinine Ratio 15.0 10-20 Random Glucose 80 70-99 mg/dl Calcium Level 8.3 8.5-10.1 mg/dl Phosphorus Level 3.2 2.5-4.9 mg/dl Magnesium Level 2.2 1.8-2.4 mg/dl Total Bilirubin 0.4 0.2-1 mg/dl Aspartate Amino Transf (AST/SGOT) 15 15-37 U/L Alanine Aminotransferase (ALT/SGPT) 15 12-78 U/L Alkaline Phosphatase 46 45-117 U/L Total Protein 6.4 6.4-8.2 gm/dl Albumin 2.8 3.4-5.0 gm/dl Globulin 3.6 2.5-4.0 gm/dl Albumin/Globulin Ratio 0.8 0.9-2 Microbiology Results 11/28/16 MRSA DNA Surveillance Screen - Final, Complete Specimen Negative for MRSA by DNA Probe 11/28/16 Urine Culture, Received Pending Labs were reviewed and are within normal limits unless listed below. Labs are available in the chart and at [facility] Problem List Medical Problems: (1) Blunt abdominal trauma Status: Acute (2) Contusion of left hand Status: Acute (3) Contusion of left shoulder Status: Acute (4) Contusion of left wrist Status: Acute (5) Contusion of lower back Status: Acute (6) Fall Status: Acute (7) Frequent falls Status: Acute (8) Hypoxia Status: Acute (9) Hypoxia Status: Acute (10) Lactic acidosis Status: Acute (11) Left rib fracture Status: Acute (12) Pneumothorax, left Status: Acute (13) Shoulder contusion Status: Acute (14) Vomiting Status: Acute Past History congestive heart failure, coronary artery disease, CVA/TIA/stroke, depression, high cholesterol, hypertension, myocardial infarction, seizure Family History FH: heart disease FATHER MOTHER Social History Hx Tobacco Use In Past Year?: No Smoking: quit greater than 1 year Marital status: Housing status: lives with family Occupation status: disabled Immunizations History of Influenza Vaccine: N/A History of Tetanus Vaccine?: not with in the last ten yrs History of Pneumococcal: Unknown History of Hepatitis B Vaccine: No History of MDRO No Allergies Coded Allergies: Naproxen (Verified Allergy, Mild, 11/28/16) Medications Home Medications: Home Meds and Scripts Medications Dose Route/Sig Max Daily Dose Days Date Category Dose Instructions Lactinex (Lactobacillus Acidophilus) Tab 2 Tab PO BID 09/24/16 Rx Digoxin 0.125 Mg Tab 0.125 Mg PO DAILY 09/19/16 Reported Toprol-Xl (Metoprolol Succinate) 25 Mg Tabcr 25 Mg PO DAILY 03/03/16 Reported Divalproex Sodium ER (Divalproex Sodium) 500 Mg Tabcr 1,000 Mg PO HS 03/03/16 Reported Dexilant (Dexlansoprazole) 60 Mg Cap 60 Mg PO DAILY 03/03/16 Reported Lisinopril 2.5 Mg Tab 1.25 Mg PO HS 03/03/16 Reported Divalproex Sodium ER (Divalproex Sodium) 250 Mg Tabcr 250 Mg PO HS 03/03/16 Reported Lipitor (Atorvastatin Calcium) 40 Mg Tab 40 Mg PO HS 04/02/14 Reported Fosamax (Alendronate Sodium) 70 Mg Tab 70 Mg PO WK 02/21/14 Reported TAKE THIS MEDICATION EVERY THURSDAY Lasix (Furosemide) 20 Mg Tab 20 Mg PO Q2D 01/31/14 Reported Plavix (Clopidogrel Bisulfate) 75 Mg Tab 75 Mg PO DAILY 01/31/14 Reported Ecotrin Or Generic (Aspirin) 81 Mg Tab 81 Mg PO DAILY 04/09/12 Reported Prozac (Fluoxetine HCl) 40 Mg Cap 40 Mg PO DAILY 01/18/07 Reported Inpatient Medications: Current Inpatient Medications Medications (Trade) Dose Ordered Sig/Ton Route Start Time Stop Time Status Last Admin Dose Admin Ioversol (Optiray 320) 100 ml UD PRN IV 11/28/16 12:30 12/02/16 12:29 Acetaminophen (Tylenol Tab) 650 mg Q4H PRN PO 11/28/16 16:00 12/28/16 15:59 Ondansetron HCl (Zofran Inj) 4 mg Q6H PRN IV 11/28/16 16:00 12/28/16 15:59 Alendronate Sodium (Fosamax Tab) 70 mg We@0700 PO 12/03/16 07:00 01/02/17 06:59 Atorvastatin Calcium (Lipitor Tab) 40 mg HS PO 11/28/16 21:00 12/28/16 20:59 11/28/16 20:54 40 MG Digoxin (Lanoxin Tab) 0.125 mg DAILY@1600 PO 11/29/16 16:00 12/29/16 15:59 Divalproex Sodium (Depakote Extended Rel Tab) 250 mg HS PO 11/28/16 21:00 12/28/16 20:59 11/28/16 20:54 250 MG Divalproex Sodium (Depakote Extended Rel Tab) 1,000 mg HS PO 11/28/16 21:00 12/28/16 20:59 11/28/16 20:56 1,000 MG Fluoxetine HCl (Prozac Cap) 40 mg DAILY PO 11/29/16 09:00 12/29/16 08:59 11/29/16 08:09 40 MG Furosemide (Lasix Tab) 20 mg Q2D@0900 PO 11/29/16 09:00 12/29/16 08:59 11/29/16 09:32 20 MG Lactobacillus Acidophilus (Floranex Tab) 2 tab BID PO 11/28/16 21:00 12/28/16 20:59 11/29/16 08:09 2 TAB Lisinopril (Zestril Tab) 1.25 mg HS PO 11/28/16 21:00 12/28/16 20:59 11/28/16 20:55 1.25 MG Metoprolol Succinate (Toprol Xl Tab) 25 mg DAILY PO 11/29/16 09:00 12/29/16 08:59 Pantoprazole Sodium (Protonix Tab) 40 mg DAILY PO 11/29/16 09:00 12/29/16 08:59 11/29/16 08:09 40 MG Morphine Sulfate (MoRPHine SULFATE INJ) 2 mg Q2H PRN IV 11/28/16 19:00 12/12/16 18:59 Nitroglycerin (Nitrostat Tab) 0.4 mg UD PRN SL 11/28/16 19:00 12/28/16 18:59 Al Hydrox/Mg Hydrox/Simethicone (Maalox Max Susp) 15 ml Q4H PRN PO 11/28/16 19:00 12/28/16 18:59 Magnesium Hydroxide (Milk Of Magnesia Susp) 30 ml Q12H PRN PO 11/28/16 19:00 12/28/16 18:59 Ondansetron HCl (Zofran Inj) 4 mg Q6H PRN IV 11/28/16 19:00 12/28/16 18:59 Review of Systems Review of Systems Constitutional: No chills, No fever Neurological: + dizzy, + passing out Endocrine: + tired/sluggish Gastrointestinal: No abdominal pain, No constipation, No diarrhea, No indigestion, No nausea, No vomiting Male : + blood in urine, + frequent urination, + nocturia more than once/ night Physical Exam Vital Signs: Vital Signs Past 12 Hours Date Time Temp Pulse Resp B/P Pulse Ox O2 Delivery O2 Flow Rate FiO2 11/29/16 10:00 65 21 96 11/29/16 09:45 60 18 100 11/29/16 09:30 36.5 54 20 94/56 99 Room Air 11/29/16 09:30 61 20 86/47 11/29/16 09:15 58 18 95 11/29/16 09:00 58 16 98/58 98 11/29/16 08:45 60 17 97 11/29/16 08:30 55 15 86/52 97 11/29/16 08:15 54 17 97 11/29/16 08:03 57 16 89/50 96 11/29/16 08:00 54 15 80/50 97 11/29/16 07:45 54 13 97 11/29/16 07:30 36.5 54 20 94/54 99 Nasal Cannula 2.0 11/29/16 07:30 Nasal Cannula 2.0 11/29/16 07:30 58 14 100 11/29/16 07:15 54 14 100 11/29/16 07:00 59 18 94/57 100 11/29/16 06:00 54 15 88/52 100 Nasal Cannula 2.0 11/29/16 05:14 97 Nasal Cannula 2.0 11/29/16 05:00 56 18 89/57 96 Nasal Cannula 2.0 11/29/16 04:00 36.9 60 25 87/58 97 Nasal Cannula 2.0 11/29/16 03:00 58 17 96/59 97 Nasal Cannula 2.0 11/29/16 02:00 62 15 93/61 93 Nasal Cannula 2.0 11/29/16 01:00 58 19 91/65 Nasal Cannula 2.0 11/29/16 00:26 97 Nasal Cannula 2.0 11/28/16 23:00 61 17 99/64 84 Nasal Cannula 2.0 Physical Exam: General Appearance: WD/WN, no apparent distress Eyes: bilateral eyes normal inspection ENT: hearing grossly normal Neck: no adenopathy, trachea midline Respiratory/Chest: no respiratory distress, no accessory muscle use Genitourinary - Male: Penis: normal penis Urethral Meatus: pertinent finding (amaro [address] with pink urie draining) Extremities: normal inspection, no pedal edema, no calf tenderness Neurologic/Psychiatric: alert, normal mood/affect, oriented x 3 Skin: normal color, warm/dry, no rash Assessment & Plan Assessment & Plan gross hematuria may be related to catheter insertion suggest remove amaro catheter to avoid catheter associated UTI. He voids fine at home on a bedside commode. I will need to see him in clinic in about a month to investigate the hematuria. He has a contrast ct scan abd/pelvis which has rulled out kidney tumor or large bladder tumor. He has a small non obstructing kidney stone.
--- NOTE | 2016-11-29 11:23 | Progress Note ---
Subjective Date of Service: Nov 29, 2016. Subjective Pt evaluation today including: conversation w/ patient, physical exam, lab review, review of studies, review of inpatient medication list Saw/examined the patient in room 112 He's doing well, no shortness of breath, no chest pain no chest wall tenderness or rib pain on the left side - controlled with meds No other problems/issues to note Problem List Medical Problems: (1) Blunt abdominal trauma Status: Acute (2) Contusion of left hand Status: Acute (3) Contusion of left shoulder Status: Acute (4) Contusion of left wrist Status: Acute (5) Contusion of lower back Status: Acute (6) Fall Status: Acute (7) Frequent falls Status: Acute (8) Hypoxia Status: Acute (9) Hypoxia Status: Acute (10) Lactic acidosis Status: Acute (11) Left rib fracture Status: Acute (12) Pneumothorax, left Status: Acute (13) Shoulder contusion Status: Acute (14) Vomiting Status: Acute Review of Systems Respiratory: No cough, No dyspnea at rest, No dyspnea on exertion, No hemoptysis, No shortness of breath, No sputum, No wheezing Cardiac: No chest pain, No edema, No orthopnea, No palpitations Neurologic: + balance problems, + weakness, No memory loss, No numbness/ tingling, No paralysis, No vertigo Heme: No abnormal bleeding/bruising Medications Current Inpatient Medications Medications (Trade) Dose Ordered Sig/Ton Route Start Time Stop Time Status Last Admin Dose Admin Ioversol (Optiray 320) 100 ml UD PRN IV 11/28/16 12:30 12/02/16 12:29 Acetaminophen (Tylenol Tab) 650 mg Q4H PRN PO 11/28/16 16:00 12/28/16 15:59 Ondansetron HCl (Zofran Inj) 4 mg Q6H PRN IV 11/28/16 16:00 12/28/16 15:59 Alendronate Sodium (Fosamax Tab) 70 mg We@0700 PO 12/03/16 07:00 01/02/17 06:59 Atorvastatin Calcium (Lipitor Tab) 40 mg HS PO 11/28/16 21:00 12/28/16 20:59 11/28/16 20:54 40 MG Digoxin (Lanoxin Tab) 0.125 mg DAILY@1600 PO 11/29/16 16:00 12/29/16 15:59 Divalproex Sodium (Depakote Extended Rel Tab) 250 mg HS PO 11/28/16 21:00 12/28/16 20:59 11/28/16 20:54 250 MG Divalproex Sodium (Depakote Extended Rel Tab) 1,000 mg HS PO 11/28/16 21:00 12/28/16 20:59 11/28/16 20:56 1,000 MG Fluoxetine HCl (Prozac Cap) 40 mg DAILY PO 11/29/16 09:00 12/29/16 08:59 11/29/16 08:09 40 MG Furosemide (Lasix Tab) 20 mg Q2D@0900 PO 11/29/16 09:00 12/29/16 08:59 11/29/16 09:32 20 MG Lactobacillus Acidophilus (Floranex Tab) 2 tab BID PO 11/28/16 21:00 12/28/16 20:59 11/29/16 08:09 2 TAB Lisinopril (Zestril Tab) 1.25 mg HS PO 11/28/16 21:00 12/28/16 20:59 11/28/16 20:55 1.25 MG Metoprolol Succinate (Toprol Xl Tab) 25 mg DAILY PO 11/29/16 09:00 12/29/16 08:59 Pantoprazole Sodium (Protonix Tab) 40 mg DAILY PO 11/29/16 09:00 12/29/16 08:59 11/29/16 08:09 40 MG Morphine Sulfate (MoRPHine SULFATE INJ) 2 mg Q2H PRN IV 11/28/16 19:00 12/12/16 18:59 Nitroglycerin (Nitrostat Tab) 0.4 mg UD PRN SL 11/28/16 19:00 12/28/16 18:59 Al Hydrox/Mg Hydrox/Simethicone (Maalox Max Susp) 15 ml Q4H PRN PO 11/28/16 19:00 12/28/16 18:59 Magnesium Hydroxide (Milk Of Magnesia Susp) 30 ml Q12H PRN PO 11/28/16 19:00 12/28/16 18:59 Ondansetron HCl (Zofran Inj) 4 mg Q6H PRN IV 11/28/16 19:00 12/28/16 18:59 Objective Vital Signs Date Time Temp Pulse Resp B/P Pulse Ox O2 Delivery O2 Flow Rate FiO2 11/29/16 06:00 54 15 88/52 100 Nasal Cannula 2.0 11/29/16 05:14 97 Nasal Cannula 2.0 11/29/16 05:00 56 18 89/57 96 Nasal Cannula 2.0 11/29/16 04:00 36.9 60 25 87/58 97 Nasal Cannula 2.0 11/29/16 03:00 58 17 96/59 97 Nasal Cannula 2.0 11/29/16 02:00 62 15 93/61 93 Nasal Cannula 2.0 11/29/16 01:00 58 19 91/65 Nasal Cannula 2.0 11/29/16 00:26 97 Nasal Cannula 2.0 11/28/16 23:00 61 17 99/64 84 Nasal Cannula 2.0 11/28/16 22:00 36.9 63 16 101/48 94 Nasal Cannula 2.0 11/28/16 21:01 63 17 103/54 100 Nasal Cannula 2.0 11/28/16 20:05 97 Nasal Cannula 2.0 11/28/16 20:00 36.9 61 16 92/58 97 Nasal Cannula 2.0 11/28/16 19:06 65 16 98/55 98 Nasal Cannula 2.0 11/28/16 18:25 36.6 67 21 115/66 100 Nasal Cannula 2.0 11/28/16 18:02 36.8 67 24 115/66 100 Nasal Cannula 2.0 11/28/16 16:25 71 20 128/78 96 Nasal Cannula 2.0 11/28/16 15:00 69 18 121/73 97 11/28/16 14:37 84 20 122/71 98 11/28/16 14:26 84 20 111/63 98 11/28/16 13:07 66 110/69 11/28/16 12:31 68 16 110/69 96 Room Air 11/28/16 12:06 70 11/28/16 11:34 36.6 68 14 110/69 96 Room Air Physical Exam General Appearance: no apparent distress Respiratory/Chest: chest non-tender, lungs clear, normal breath sounds, no respiratory distress, no accessory muscle use, + pertinent finding (chest tube in place) Cardiovascular: regular rate, rhythm, no edema, no murmur Abdomen: + pertinent finding ([place] in place, draining bloody urine) Extremities: normal inspection, no pedal edema Neurologic/Psychiatric: alert, normal mood/affect Skin: normal color Laboratory Results Last 24 Hours Test 11/28/16 12:25 11/28/16 13:50 11/28/16 16:10 11/28/16 19:55 White Blood Count 7.86 K/uL Red Blood Count 3.89 M/uL Hemoglobin 12.4 g/dL 12.2 g/dL Hematocrit 36.6 % 36.3 % Mean Corpuscular Volume 94.1 fL Mean Corpuscular Hemoglobin 31.9 pg Mean Corpuscular Hemoglobin Concent 33.9 g/dl Platelet Count 126 K/uL Mean Platelet Volume 11.9 fL Neutrophils (%) (Auto) 73.6 % Lymphocytes (%) (Auto) 12.3 % Monocytes (%) (Auto) 12.2 % Eosinophils (%) (Auto) 1.3 % Basophils (%) (Auto) 0.1 % Neutrophils # (Auto) 5.78 K/uL Lymphocytes # (Auto) 0.97 K/uL Monocytes # (Auto) 0.96 K/uL Eosinophils # (Auto) 0.10 K/uL Basophils # (Auto) 0.01 K/uL RDW Standard Deviation 52.9 fL RDW Coefficient of Variation 15.4 % Immature Granulocyte % (Auto) 0.5 % Immature Granulocyte # (Auto) 0.04 K/uL Prothrombin Time 11.3 SECONDS Prothromb Time International Ratio 1.1 Activated Partial Thromboplast Time 25.4 SECONDS Partial Thromboplastin Ratio 1.0 Sodium Level 141 mmol/L Potassium Level 3.5 mmol/L Chloride Level 107 mmol/L Carbon Dioxide Level 25 mmol/L Anion Gap 9.0 mmol/L Blood Urea Nitrogen 13 mg/dl Creatinine 0.82 mg/dl Est Creatinine Clear Calc Drug Dose 79.7 ml/min Estimated GFR () 109.8 Estimated GFR (Non- 94.8 BUN/Creatinine Ratio 15.5 Random Glucose 79 mg/dl Calcium Level 8.8 mg/dl Total Bilirubin 0.4 mg/dl Direct Bilirubin < 0.1 mg/dl Aspartate Amino Transf (AST/SGOT) 18 U/L Alanine Aminotransferase (ALT/SGPT) 17 U/L Alkaline Phosphatase 50 U/L Total Creatine Kinase 64 U/L Creatine Kinase MB 0.8 ng/ml Creatine Kinase MB Ratio 1.3 Troponin I < 0.015 ng/ml Total Protein 7.1 gm/dl Albumin 3.2 gm/dl Lipase 143 U/L Urine Color DK YELLOW Urine Appearance CLEAR Urine pH 6.0 Urine Specific [place] > 1.045 Urine Protein 1+ Urine Glucose (UA) NEG Urine Ketones TRACE Urine Occult Blood 1+ Urine Nitrite NEG Urine Bilirubin NEG Urine Urobilinogen NEG Urine Leukocyte Esterase TRACE Urine WBC (Auto) 10-30 /hpf Urine RBC (Auto) >30 /hpf Urine Hyaline Casts (Auto) 10-30 /lpf Urine Epithelial Cells (Auto) >30 /lpf Urine Bacteria (Auto) NEG Urine Renal Epithelial Cells /lpf Digoxin Level 0.4 ng/ml Test 11/29/16 00:02 11/29/16 05:08 11/29/16 08:00 Hemoglobin 12.0 g/dL 11.5 g/dL Hematocrit 35.0 % 34.4 % White Blood Count 5.64 K/uL Red Blood Count 3.68 M/uL Mean Corpuscular Volume 93.5 fL Mean Corpuscular Hemoglobin 31.3 pg Mean Corpuscular Hemoglobin Concent 33.4 g/dl RDW Standard Deviation 52.0 fL RDW Coefficient of Variation 15.3 % Platelet Count 104 K/uL Mean Platelet Volume 11.6 fL Sodium Level 142 mmol/L Potassium Level 3.5 mmol/L Chloride Level 108 mmol/L Carbon Dioxide Level 29 mmol/L Anion Gap 5.0 mmol/L Blood Urea Nitrogen 9 mg/dl Creatinine 0.59 mg/dl Est Creatinine Clear Calc Drug Dose 108.8 ml/min Estimated GFR () 125.8 Estimated GFR (Non- 108.5 BUN/Creatinine Ratio 15.0 Random Glucose 80 mg/dl Calcium Level 8.3 mg/dl Phosphorus Level 3.2 mg/dl Magnesium Level 2.2 mg/dl Total Bilirubin 0.4 mg/dl Aspartate Amino Transf (AST/SGOT) 15 U/L Alanine Aminotransferase (ALT/SGPT) 15 U/L Alkaline Phosphatase 46 U/L Total Protein 6.4 gm/dl Albumin 2.8 gm/dl Globulin 3.6 gm/dl Albumin/Globulin Ratio 0.8 Assessment and Plan This is a 61 year old male with PMH of CAD and ischemic cardiomyopathy, systolic CHF with EF ~ 15% s/p AICD, hx. of CVA with residual left sided weakness, seizure disorder, hx. of aspiration pneumonia, chronic resting hypotension presents to the ER after a fall with subsequent rib fractures and left pneumothorax Left Sided Pneumothorax patient presented to the ER due to a fall and rib fractures which resulted in left sided pneumothorax Had a chest tube placed in the ER was transferred to ICU for close monitoring 11/29 Doing well, can transfer from ICU to tele appreciate surgical input on this matter CXR this AM shows no pneumothorax chest tube removed earlier this AM Left Rib Fracture s/p mechanical fall pain controlled does not require pain medications at this time Mechanical Fall likely due to left sided residual weakness from previous CVA He recalls event and states it was mechanical no seizure like activity, no bowel/bladder incontinence, no tongue biting will need PT/OT evaluation he is willing to go to rehab if necessary to gain his strength prior to returning home Possible Aspiration Pneumonia? this seems less likely on the differential at this time he has had problems with aspiration in the past speech evaluation pending afebrile, no white count, no signs of clear cut infection agree with d/c Augmentin Hematuria patient had a [place] catheter put in currently draining bloody urine more likely related to trauma appreciate urology input; outpatient follow-up pending Oliguria likely related to dehydration and decreased PO intake currently on clears and can advance as tolerated monitor urine output urine culture pending CAD currently holding aspirin + Plavix due to chest tube placement restart when okay with surgery continue statin, b-kris, COLIN-I Ischemic Cardiomyopathy Systolic Dysfunction, EF ~ 15% s/p AICD continue COLIN-I, b-kris Hx. of Seizure Disorder cont. Depakote Hx. of CVA restart Plavix when okay with surgery PT/PT pending due to residual weakness DVT ppx SCDs FULL NO MECHANICAL VENTILATION plan is to transfer to med/surg with chest tube out on 11/29
[2016-11-29 12:24] LABS: HEMATOCRIT 39.5 % (42-52)
[2016-11-29] MEDS ORDERED: CLOPIDOGREL BISULFATE 75 MG TAB PO ONE (13:14)
[2016-11-29] MEDS ORDERED: ASPIRIN 81 MG ECTAB PO ONE (13:14)
--- NOTE | 2016-11-29 13:17 | Critical Care Progress Note ---
Critical Care Progress Note Date of Service Nov 29, 2016. ICU Day ICU Day Number: [address] Gregory Subjective No complaint of chest pain, no shortness of breath pleasant Objective General: Alert and oriented 3 CVS S1-S2 regular rate and rhythm Chest: Chest tube in place no air leak on waterseal no purulent drainage. Respiratory: Lungs clear to auscultation bilaterally Abdomen soft nontender tender nondistended Assessment & Plan Neurology - Pain under control Cardiovascular - Blood pressure remains stable - Heart rate 60-70 Respiratory - Respiratory rate 18-20 - Patient saturating 96-100% on room air - Left fourth refracture: Tylenol when necessary for pain, morphine IV when necessary for pain - Left pneumothorax: Repeat chest x-ray. Abdomen -Progress diet as tolerated - GERD: Pantoprazole 40 mmol by mouth daily Renal Endocrine - [place] discontinued Heme / ID -Urine culture pending Stable for routine DVT prophylaxis CODE STATUS - Full with no mechanical ventilation Stable for transfer to [facility] I updated Dr. Berumen regarding the chest tube. Consults & Procedures Consultants: General surgery, urology, critical care Procedures: Chest tube removal on 11/29/2016 Data Medications: Current Inpatient Medications Medications (Trade) Dose Ordered Sig/Ton Route Start Time Stop Time Status Last Admin Dose Admin Ioversol (Optiray 320) 100 ml UD PRN IV 11/28/16 12:30 12/02/16 12:29 Acetaminophen (Tylenol Tab) 650 mg Q4H PRN PO 11/28/16 16:00 12/28/16 15:59 Ondansetron HCl (Zofran Inj) 4 mg Q6H PRN IV 11/28/16 16:00 12/28/16 15:59 Alendronate Sodium (Fosamax Tab) 70 mg We@0700 PO 12/03/16 07:00 01/02/17 06:59 Atorvastatin Calcium (Lipitor Tab) 40 mg HS PO 11/28/16 21:00 12/28/16 20:59 11/28/16 20:54 40 MG Digoxin (Lanoxin Tab) 0.125 mg DAILY@1600 PO 11/29/16 16:00 12/29/16 15:59 Divalproex Sodium (Depakote Extended Rel Tab) 250 mg HS PO 11/28/16 21:00 12/28/16 20:59 11/28/16 20:54 250 MG Divalproex Sodium (Depakote Extended Rel Tab) 1,000 mg HS PO 11/28/16 21:00 12/28/16 20:59 11/28/16 20:56 1,000 MG Fluoxetine HCl (Prozac Cap) 40 mg DAILY PO 11/29/16 09:00 12/29/16 08:59 11/29/16 08:09 40 MG Furosemide (Lasix Tab) 20 mg Q2D@0900 PO 11/29/16 09:00 12/29/16 08:59 11/29/16 09:32 20 MG Lactobacillus Acidophilus (Floranex Tab) 2 tab BID PO 11/28/16 21:00 12/28/16 20:59 11/29/16 08:09 2 TAB Lisinopril (Zestril Tab) 1.25 mg HS PO 11/28/16 21:00 12/28/16 20:59 11/28/16 20:55 1.25 MG Metoprolol Succinate (Toprol Xl Tab) 25 mg DAILY PO 11/29/16 09:00 12/29/16 08:59 Pantoprazole Sodium (Protonix Tab) 40 mg DAILY PO 11/29/16 09:00 12/29/16 08:59 11/29/16 08:09 40 MG Morphine Sulfate (MoRPHine SULFATE INJ) 2 mg Q2H PRN IV 11/28/16 19:00 12/12/16 18:59 Nitroglycerin (Nitrostat Tab) 0.4 mg UD PRN SL 11/28/16 19:00 12/28/16 18:59 Al Hydrox/Mg Hydrox/Simethicone (Maalox Max Susp) 15 ml Q4H PRN PO 11/28/16 19:00 12/28/16 18:59 Magnesium Hydroxide (Milk Of Magnesia Susp) 30 ml Q12H PRN PO 11/28/16 19:00 12/28/16 18:59 Ondansetron HCl (Zofran Inj) 4 mg Q6H PRN IV 11/28/16 19:00 12/28/16 18:59 I & O: 24-Hour Column 11/29/16 07:59 Intake Total 120 ml Output Total 300 ml Balance -180 ml Vital Signs: Date Time Temp Pulse Resp B/P Pulse Ox O2 Delivery O2 Flow Rate FiO2 11/29/16 11:31 36.5 65 21 96 2.0 11/29/16 11:28 Room Air 11/29/16 10:00 65 21 96 11/29/16 09:45 60 18 100 11/29/16 09:30 36.5 54 20 94/56 99 Room Air 11/29/16 09:30 61 20 86/47 11/29/16 09:15 58 18 95 11/29/16 09:00 58 16 98/58 98 11/29/16 08:45 60 17 97 11/29/16 08:30 55 15 86/52 97 11/29/16 08:15 54 17 97 11/29/16 08:03 57 16 89/50 96 11/29/16 08:00 54 15 80/50 97 11/29/16 07:45 54 13 97 11/29/16 07:30 36.5 54 20 94/54 99 Nasal Cannula 2.0 11/29/16 07:30 Nasal Cannula 2.0 11/29/16 07:30 58 14 100 11/29/16 07:15 54 14 100 11/29/16 07:00 59 18 94/57 100 11/29/16 06:00 54 15 88/52 100 Nasal Cannula 2.0 11/29/16 05:14 97 Nasal Cannula 2.0 11/29/16 05:00 56 18 89/57 96 Nasal Cannula 2.0 11/29/16 04:00 36.9 60 25 87/58 97 Nasal Cannula 2.0 11/29/16 03:00 58 17 96/59 97 Nasal Cannula 2.0 11/29/16 02:00 62 15 93/61 93 Nasal Cannula 2.0 11/29/16 01:00 58 19 91/65 Nasal Cannula 2.0 11/29/16 00:26 97 Nasal Cannula 2.0 11/28/16 23:00 61 17 99/64 84 Nasal Cannula 2.0 11/28/16 22:00 36.9 63 16 101/48 94 Nasal Cannula 2.0 11/28/16 21:01 63 17 103/54 100 Nasal Cannula 2.0 11/28/16 20:05 97 Nasal Cannula 2.0 11/28/16 20:00 36.9 61 16 92/58 97 Nasal Cannula 2.0 11/28/16 19:06 65 16 98/55 98 Nasal Cannula 2.0 11/28/16 18:25 36.6 67 21 115/66 100 Nasal Cannula 2.0 11/28/16 18:02 36.8 67 24 115/66 100 Nasal Cannula 2.0 11/28/16 16:25 71 20 128/78 96 Nasal Cannula 2.0 11/28/16 15:00 69 18 121/73 97 11/28/16 14:37 84 20 122/71 98 11/28/16 14:26 84 20 111/63 98 Laboratory Results: Last 24 Hours Test 11/28/16 13:50 11/28/16 16:10 11/28/16 19:55 11/29/16 00:02 Urine Color DK YELLOW Urine Appearance CLEAR Urine pH 6.0 Urine Specific [place] > 1.045 Urine Protein 1+ Urine Glucose (UA) NEG Urine Ketones TRACE Urine Occult Blood 1+ Urine Nitrite NEG Urine Bilirubin NEG Urine Urobilinogen NEG Urine Leukocyte Esterase TRACE Urine WBC (Auto) 10-30 /hpf Urine RBC (Auto) >30 /hpf Urine Hyaline Casts (Auto) 10-30 /lpf Urine Epithelial Cells (Auto) >30 /lpf Urine Bacteria (Auto) NEG Urine Renal Epithelial Cells /lpf Digoxin Level 0.4 ng/ml Hemoglobin 12.2 g/dL 12.0 g/dL Hematocrit 36.3 % 35.0 % Test 11/29/16 05:08 11/29/16 08:50 11/29/16 12:15 White Blood Count 5.64 K/uL Red Blood Count 3.68 M/uL Hemoglobin 11.5 g/dL 11.3 g/dL 13.2 g/dL Hematocrit 34.4 % 33.5 % 39.5 % Mean Corpuscular Volume 93.5 fL Mean Corpuscular Hemoglobin 31.3 pg Mean Corpuscular Hemoglobin Concent 33.4 g/dl RDW Standard Deviation 52.0 fL RDW Coefficient of Variation 15.3 % Platelet Count 104 K/uL Mean Platelet Volume 11.6 fL Sodium Level 142 mmol/L Potassium Level 3.5 mmol/L Chloride Level 108 mmol/L Carbon Dioxide Level 29 mmol/L Anion Gap 5.0 mmol/L Blood Urea Nitrogen 9 mg/dl Creatinine 0.59 mg/dl Est Creatinine Clear Calc Drug Dose 108.8 ml/min Estimated GFR () 125.8 Estimated GFR (Non- 108.5 BUN/Creatinine Ratio 15.0 Random Glucose 80 mg/dl Calcium Level 8.3 mg/dl Phosphorus Level 3.2 mg/dl Magnesium Level 2.2 mg/dl Total Bilirubin 0.4 mg/dl Aspartate Amino Transf (AST/SGOT) 15 U/L Alanine Aminotransferase (ALT/SGPT) 15 U/L Alkaline Phosphatase 46 U/L Total Protein 6.4 gm/dl Albumin 2.8 gm/dl Globulin 3.6 gm/dl Albumin/Globulin Ratio 0.8
--- NOTE | 2016-11-29 16:44 | DIAGNOSTIC IMAGING REPORT ---
CHEST ONE VIEW PORTABLE CLINICAL HISTORY: Status post chest tube removal. COMPARISON STUDY: Chest radiograph November 29, 2016 at 7:10 AM FINDINGS: The left pleural catheter has been removed. No pneumothorax is identified. Mild left basilar opacity favors atelectasis. There is a left subclavian pacer/AICD. There is no evidence of pulmonary edema. IMPRESSION: No pneumothorax following removal of left pleural catheter. Electronically signed by: Krzysztof Sneed M.D. 11/29/2016 4:43 PM Dictated Date/Time: 11/29/2016 4:40 PM
[2016-11-29] MEDS: DIGOXIN 0.125 MG TAB PO SCH (16:48)
[2016-11-29 17:12] LABS: HEMATOCRIT 36.4 % (42-52)
[2016-11-29] MEDS: HEPARIN SOD 5000 UNIT/0.5 ML CARP SQ SCH (20:29)
[2016-11-29] MEDS: DIVALPROEX 500 MG EXTENDED RELEASE TAB PO SCH (20:31)
[2016-11-29] MEDS: ATORVASTATIN 40 MG TAB PO SCH (20:31)
[2016-11-29] MEDS: DIVALPROEX 250 MG EXTENDED REL TAB PO SCH (20:31)
[2016-11-29] MEDS: LISINOPRIL 2.5 MG TAB PO SCH (20:33)
[2016-11-30 05:52] LABS: HEMATOCRIT 31.8 % (42-52); MEAN CELL VOLUME 90.9 fL (80-100); MEAN CORPUSCULAR HEMOGLOBIN 31.4 pg (25-34); MEAN CORPUSCULAR HGB CONC 34.6 g/dl (32-36); MEAN PLATELET VOLUME 11.4 fL (7.4-10.4); PLATELET COUNT 114 K/uL (130-400); WHITE BLOOD COUNT 11.31 K/uL (4.8-10.8)
[2016-11-30 06:17] LABS: CALCIUM 8.2 mg/dl (8.5-10.1); CREATININE 0.83 mg/dl (0.60-1.40); MAGNESIUM 1.8 mg/dl (1.8-2.4); POTASSIUM 3.2 mmol/L (3.5-5.1)
[2016-11-30 07:34] VITALS: BP 88/58; PULSE 74; TEMP 36.9; O2SAT 96
--- NOTE | 2016-11-30 07:52 | DIAGNOSTIC IMAGING REPORT ---
CHEST ONE VIEW PORTABLE CLINICAL HISTORY: Pneumonia. History of left rib fracture. COMPARISON STUDY: 11/29/2016 FINDINGS: There are low lung volumes with hypoventilatory changes the lung bases. There is a left subclavian pacer/defibrillator present. No pneumothorax is visualized.[ IMPRESSION: Low lung volumes with hypoventilatory changes most pronounced at the left lung base. No lobar consolidation. No evidence of pneumothorax. Electronically signed by: Gt Bearden M.D. 11/30/2016 7:51 AM Dictated Date/Time: 11/30/2016 7:49 AM
[2016-11-30] MEDS: ASPIRIN 81 MG ECTAB PO SCH (08:44)
[2016-11-30] MEDS: METOPROLOL SUCC 25MG EXT REL TAB PO SCH (08:44)
[2016-11-30] MEDS: LACTOBACILLUS ACIDOPHILUS (FLORANEX) TAB PO SCH ×2 (08:44→21:03)
[2016-11-30] MEDS: PANTOprazole SOD 40 MG TAB PO SCH (08:44)
[2016-11-30] MEDS: FLUOXETINE HCL 20 MG CAP PO SCH (08:44)
[2016-11-30] MEDS: CLOPIDOGREL BISULFATE 75 MG TAB PO SCH (08:47)
[2016-11-30] MEDS: HEPARIN SOD 5000 UNIT/0.5 ML CARP SQ SCH ×2 (08:47→21:06)
[2016-11-30] MEDS ORDERED: KETOROLAC TROMETHAMINE 30 MG/ML VIAL IV PRN (09:15)
[2016-11-30] MEDS ORDERED: POTASSIUM CHLR 20 MEQ / WTR 20 MEQ in PREMIXED WATER 100 ML IV STA (12:30)
[2016-11-30] MEDS: POTASSIUM CHLR 10MEQ / WTR IV SCH ×2 (13:47→14:00)
[2016-11-30] MEDS ORDERED: POTASSIUM CHLORIDE 10 MEQ TABCR PO ONE (14:30)
--- NOTE | 2016-11-30 15:11 | Progress Note ---
Subjective Date of Service: Nov 30, 2016. Subjective Pt evaluation today including: conversation w/ patient, physical exam, lab review, review of studies, review of inpatient medication list Saw/examined the patient in room 310 Doing well, pain controlled No shortness of breath Problem List Medical Problems: (1) Blunt abdominal trauma Status: Acute (2) Contusion of left hand Status: Acute (3) Contusion of left shoulder Status: Acute (4) Contusion of left wrist Status: Acute (5) Contusion of lower back Status: Acute (6) Fall Status: Acute (7) Frequent falls Status: Acute (8) Hypoxia Status: Acute (9) Hypoxia Status: Acute (10) Lactic acidosis Status: Acute (11) Left rib fracture Status: Acute (12) Pneumothorax, left Status: Acute (13) Shoulder contusion Status: Acute (14) Vomiting Status: Acute Review of Systems Constitutional: + weakness, No chills, No fever Respiratory: No cough, No shortness of breath, No sputum Cardiac: No chest pain, No edema, No palpitations Neurologic: + balance problems, + weakness Medications Current Inpatient Medications Medications (Trade) Dose Ordered Sig/Ton Route Start Time Stop Time Status Last Admin Dose Admin Ioversol (Optiray 320) 100 ml UD PRN IV 11/28/16 12:30 12/02/16 12:29 Acetaminophen (Tylenol Tab) 650 mg Q4H PRN PO 11/28/16 16:00 12/28/16 15:59 Ondansetron HCl (Zofran Inj) 4 mg Q6H PRN IV 11/28/16 16:00 12/28/16 15:59 Alendronate Sodium (Fosamax Tab) 70 mg We@0700 PO 12/03/16 07:00 01/02/17 06:59 Atorvastatin Calcium (Lipitor Tab) 40 mg HS PO 11/28/16 21:00 12/28/16 20:59 11/29/16 20:31 40 MG Digoxin (Lanoxin Tab) 0.125 mg DAILY@1600 PO 11/29/16 16:00 12/29/16 15:59 11/29/16 16:48 0.125 MG Divalproex Sodium (Depakote Extended Rel Tab) 250 mg HS PO 11/28/16 21:00 12/28/16 20:59 11/29/16 20:31 250 MG Divalproex Sodium (Depakote Extended Rel Tab) 1,000 mg HS PO 11/28/16 21:00 12/28/16 20:59 11/29/16 20:31 1,000 MG Fluoxetine HCl (Prozac Cap) 40 mg DAILY PO 11/29/16 09:00 12/29/16 08:59 11/30/16 08:44 40 MG Furosemide (Lasix Tab) 20 mg Q2D@0900 PO 11/29/16 09:00 12/29/16 08:59 11/29/16 09:32 20 MG Lactobacillus Acidophilus (Floranex Tab) 2 tab BID PO 11/28/16 21:00 12/28/16 20:59 11/30/16 08:44 2 TAB Lisinopril (Zestril Tab) 1.25 mg HS PO 11/28/16 21:00 12/28/16 20:59 11/29/16 20:33 1.25 MG Metoprolol Succinate (Toprol Xl Tab) 25 mg DAILY PO 11/29/16 09:00 12/29/16 08:59 Pantoprazole Sodium (Protonix Tab) 40 mg DAILY PO 11/29/16 09:00 12/29/16 08:59 11/30/16 08:44 40 MG Morphine Sulfate (MoRPHine SULFATE INJ) 2 mg Q2H PRN IV 11/28/16 19:00 12/12/16 18:59 11/29/16 20:59 2 MG Nitroglycerin (Nitrostat Tab) 0.4 mg UD PRN SL 11/28/16 19:00 12/28/16 18:59 Al Hydrox/Mg Hydrox/Simethicone (Maalox Max Susp) 15 ml Q4H PRN PO 11/28/16 19:00 12/28/16 18:59 Magnesium Hydroxide (Milk Of Magnesia Susp) 30 ml Q12H PRN PO 11/28/16 19:00 12/28/16 18:59 Ondansetron HCl (Zofran Inj) 4 mg Q6H PRN IV 11/28/16 19:00 12/28/16 18:59 Aspirin (Ecotrin Tab) 81 mg QAM PO 11/30/16 09:00 12/30/16 08:59 11/30/16 08:44 81 MG Clopidogrel Bisulfate (plAVix TAB) 75 mg QAM PO 11/30/16 09:00 12/30/16 08:59 11/30/16 08:47 75 MG Heparin Sodium (Porcine) (Heparin Sq 5000 Unit/0.5ml) 5,000 unit Q12 SQ 11/29/16 21:00 12/29/16 20:59 11/30/16 08:47 5,000 UNIT Objective Vital Signs Date Time Temp Pulse Resp B/P Pulse Ox O2 Delivery O2 Flow Rate FiO2 11/30/16 07:34 36.9 74 17 88/58 96 Room Air 11/30/16 07:25 Room Air 11/29/16 23:04 37.5 98 20 95/62 95 Room Air 11/29/16 20:32 Room Air 11/29/16 20:27 101 102/70 11/29/16 17:34 Room Air 11/29/16 16:48 72 11/29/16 15:30 36.8 69 16 100/64 94 Room Air Physical Exam General Appearance: no apparent distress Respiratory/Chest: lungs clear, normal breath sounds, no respiratory distress, no accessory muscle use, + pertinent finding (chest wall mildly tender on left side, but much improved; chest tube removed; bandaged site) Cardiovascular: regular rate, rhythm, no edema, no murmur Laboratory Results Last 24 Hours Test 11/29/16 16:51 11/30/16 05:30 Hemoglobin 12.8 g/dL 11.0 g/dL Hematocrit 36.4 % 31.8 % White Blood Count 11.31 K/uL Red Blood Count 3.50 M/uL Mean Corpuscular Volume 90.9 fL Mean Corpuscular Hemoglobin 31.4 pg Mean Corpuscular Hemoglobin Concent 34.6 g/dl RDW Standard Deviation 51.7 fL RDW Coefficient of Variation 15.5 % Platelet Count 114 K/uL Mean Platelet Volume 11.4 fL Sodium Level 138 mmol/L Potassium Level 3.2 mmol/L Chloride Level 103 mmol/L Carbon Dioxide Level 28 mmol/L Anion Gap 7.0 mmol/L Blood Urea Nitrogen 8 mg/dl Creatinine 0.83 mg/dl Est Creatinine Clear Calc Drug Dose 77.3 ml/min Estimated GFR () 109.3 Estimated GFR (Non- 94.3 BUN/Creatinine Ratio 9.0 Random Glucose 103 mg/dl Calcium Level 8.2 mg/dl Magnesium Level 1.8 mg/dl Assessment and Plan This is a 61 year old male with PMH of CAD and ischemic cardiomyopathy, systolic CHF with EF ~ 15% s/p AICD, hx. of CVA with residual left sided weakness, seizure disorder, hx. of aspiration pneumonia, chronic resting hypotension presents to the ER after a fall with subsequent rib fractures and left pneumothorax Left Sided Pneumothorax patient presented to the ER due to a fall and rib fractures which resulted in left sided pneumothorax Had a chest tube placed in the ER was transferred to ICU for close monitoring 11/30 chest tube removed, CXR repeated with no pneumothorax antibiotics stopped as not likely pneumonia rib pain is controlled PT/OT pending, will need placement on discharge 11/29 Doing well, can transfer from ICU to tele appreciate surgical input on this matter CXR this AM shows no pneumothorax chest tube removed earlier this AM Left Rib Fracture s/p mechanical fall pain controlled does not require pain medications at this time Mechanical Fall likely due to left sided residual weakness from previous CVA He recalls event and states it was mechanical no seizure like activity, no bowel/bladder incontinence, no tongue biting will need PT/OT evaluation he is willing to go to rehab if necessary to gain his strength prior to returning home Possible Aspiration Pneumonia? this seems less likely on the differential at this time he has had problems with aspiration in the past speech evaluation pending afebrile, no white count, no signs of clear cut infection agree with d/c Augmentin Hematuria patient had a [place] catheter put in currently draining bloody urine more likely related to trauma appreciate urology input; outpatient follow-up pending Oliguria likely related to dehydration and decreased PO intake currently on clears and can advance as tolerated monitor urine output urine culture pending CAD currently holding aspirin + Plavix due to chest tube placement restart when okay with surgery continue statin, b-kris, COLIN-I Ischemic Cardiomyopathy Systolic Dysfunction, EF ~ 15% s/p AICD continue COLIN-I, b-kris Hx. of Seizure Disorder cont. Depakote Hx. of CVA restart Plavix when okay with surgery PT/PT pending due to residual weakness DVT ppx SCDs FULL NO MECHANICAL VENTILATION plan is to transfer to med/surg with chest tube out on 11/29 Discharge planning: rehab hospital
[2016-11-30 15:37] VITALS: BP 93/63; PULSE 102; TEMP 36.9; O2SAT 96
[2016-11-30] MEDS: DIGOXIN 0.125 MG TAB PO SCH (15:54)
[2016-11-30 20:59] VITALS: BP 97/62; PULSE 76
[2016-11-30] MEDS: LISINOPRIL 2.5 MG TAB PO SCH (21:00)
[2016-11-30] MEDS: DIVALPROEX 250 MG EXTENDED REL TAB PO SCH (21:03)
[2016-11-30] MEDS: ATORVASTATIN 40 MG TAB PO SCH (21:03)
[2016-11-30] MEDS: DIVALPROEX 500 MG EXTENDED RELEASE TAB PO SCH (21:04)
[2016-11-30 23:11] VITALS: BP 102/62; PULSE 92; TEMP 36.9; O2SAT 97
--- NOTE | 2016-12-01 07:16 | DIAGNOSTIC IMAGING REPORT ---
CHEST ONE VIEW PORTABLE CLINICAL HISTORY: follow up pneumo dyspnea COMPARISON STUDY: 11/30/2016 FINDINGS: Lungs remain clear. Minimal left basilar atelectasis. No evidence pneumothorax. Unipolar cardiac pacer in good position. IMPRESSION: No evidence of pneumothorax. Minimal atelectasis left base. Electronically signed by: Minesh Andersen M.D. 12/01/2016 7:15 AM Dictated Date/Time: 12/01/2016 7:14 AM
[2016-12-01 08:04] VITALS: BP 102/64; PULSE 78; TEMP 36.7; O2SAT 96
--- NOTE | 2016-12-01 08:07 | SURGERY PROGRESS NOTE ---
DATE: 11/29/2016 SUBJECTIVE: Follow up on a chest tube. The pleural catheter drained the left chest, it is pretty much nonfunctioning. There is no fluid wave in the tubing itself, is still connected to the pleural vac. The patient regressively has no evidence of pneumothorax. At this point, I would leave the pleural catheter in for another day and making sure this heals completely and then we will remove it. Cruz is in no acute distress, resting comfortably. There is no subcutaneous emphysema. His last vitals showed a temperature of 36.9, pulse 54, respirations 15, blood pressure 88/52. I will leave management of his fluid status to the primary service.
[2016-12-01] MEDS: LACTOBACILLUS ACIDOPHILUS (FLORANEX) TAB PO SCH ×2 (09:03→20:26)
[2016-12-01] MEDS: ASPIRIN 81 MG ECTAB PO SCH (09:03)
[2016-12-01] MEDS: CLOPIDOGREL BISULFATE 75 MG TAB PO SCH (09:03)
[2016-12-01] MEDS: PANTOprazole SOD 40 MG TAB PO SCH (09:03)
[2016-12-01] MEDS: METOPROLOL SUCC 25MG EXT REL TAB PO SCH (09:03)
[2016-12-01] MEDS: FLUOXETINE HCL 20 MG CAP PO SCH (09:03)
[2016-12-01] MEDS: HEPARIN SOD 5000 UNIT/0.5 ML CARP SQ SCH ×2 (09:06→20:34)
[2016-12-01] MEDS: FUROSEMIDE 20 MG TAB PO SCH (09:07)
[2016-12-01 10:31] VITALS: O2SAT 96
[2016-12-01 11:57] VITALS: BP 98/62; PULSE 78; TEMP 36.8; O2SAT 99
[2016-12-01 15:17] VITALS: BP 120/71; PULSE 87; TEMP 36.8; O2SAT 97
[2016-12-01 16:00] VITALS: O2SAT 97
--- NOTE | 2016-12-01 16:05 | Progress Note ---
Subjective Date of Service: Dec 01, 2016. Subjective Pt evaluation today including: conversation w/ patient, physical exam, lab review, review of studies, review of inpatient medication list Saw/examined the patient in room 310 He's doing fine, no rib pain, controlled with medications +constipation Problem List Medical Problems: (1) Blunt abdominal trauma Status: Acute (2) Contusion of left hand Status: Acute (3) Contusion of left shoulder Status: Acute (4) Contusion of left wrist Status: Acute (5) Contusion of lower back Status: Acute (6) Fall Status: Acute (7) Frequent falls Status: Acute (8) Hypoxia Status: Acute (9) Hypoxia Status: Acute (10) Lactic acidosis Status: Acute (11) Left rib fracture Status: Acute (12) Pneumothorax, left Status: Acute (13) Shoulder contusion Status: Acute (14) Vomiting Status: Acute Review of Systems Constitutional: + weakness Respiratory: No shortness of breath Cardiac: No chest pain, No edema, No palpitations Abdomen: + constipation, No diarrhea, No nausea, No pain, No vomiting Neurologic: + balance problems, + weakness, No numbness/tingling, No vertigo Medications Current Inpatient Medications Medications (Trade) Dose Ordered Sig/Ton Route Start Time Stop Time Status Last Admin Dose Admin Ioversol (Optiray 320) 100 ml UD PRN IV 11/28/16 12:30 12/02/16 12:29 Acetaminophen (Tylenol Tab) 650 mg Q4H PRN PO 11/28/16 16:00 12/28/16 15:59 Ondansetron HCl (Zofran Inj) 4 mg Q6H PRN IV 11/28/16 16:00 12/28/16 15:59 Alendronate Sodium (Fosamax Tab) 70 mg We@0700 PO 12/03/16 07:00 01/02/17 06:59 Atorvastatin Calcium (Lipitor Tab) 40 mg HS PO 11/28/16 21:00 12/28/16 20:59 11/30/16 21:03 40 MG Digoxin (Lanoxin Tab) 0.125 mg DAILY@1600 PO 11/29/16 16:00 12/29/16 15:59 11/30/16 15:54 0.125 MG Divalproex Sodium (Depakote Extended Rel Tab) 250 mg HS PO 11/28/16 21:00 12/28/16 20:59 11/30/16 21:03 250 MG Divalproex Sodium (Depakote Extended Rel Tab) 1,000 mg HS PO 11/28/16 21:00 12/28/16 20:59 11/30/16 21:04 1,000 MG Fluoxetine HCl (Prozac Cap) 40 mg DAILY PO 11/29/16 09:00 12/29/16 08:59 12/01/16 09:03 40 MG Furosemide (Lasix Tab) 20 mg Q2D@0900 PO 11/29/16 09:00 12/29/16 08:59 12/01/16 09:07 20 MG Lactobacillus Acidophilus (Floranex Tab) 2 tab BID PO 11/28/16 21:00 12/28/16 20:59 12/01/16 09:03 2 TAB Lisinopril (Zestril Tab) 1.25 mg HS PO 11/28/16 21:00 12/28/16 20:59 11/29/16 20:33 1.25 MG Metoprolol Succinate (Toprol Xl Tab) 25 mg DAILY PO 11/29/16 09:00 12/29/16 08:59 12/01/16 09:03 25 MG Pantoprazole Sodium (Protonix Tab) 40 mg DAILY PO 11/29/16 09:00 12/29/16 08:59 12/01/16 09:03 40 MG Morphine Sulfate (MoRPHine SULFATE INJ) 2 mg Q2H PRN IV 11/28/16 19:00 12/12/16 18:59 11/29/16 20:59 2 MG Nitroglycerin (Nitrostat Tab) 0.4 mg UD PRN SL 11/28/16 19:00 12/28/16 18:59 Al Hydrox/Mg Hydrox/Simethicone (Maalox Max Susp) 15 ml Q4H PRN PO 11/28/16 19:00 12/28/16 18:59 Magnesium Hydroxide (Milk Of Magnesia Susp) 30 ml Q12H PRN PO 11/28/16 19:00 12/28/16 18:59 Ondansetron HCl (Zofran Inj) 4 mg Q6H PRN IV 11/28/16 19:00 12/28/16 18:59 Aspirin (Ecotrin Tab) 81 mg QAM PO 11/30/16 09:00 12/30/16 08:59 12/01/16 09:03 81 MG Clopidogrel Bisulfate (plAVix TAB) 75 mg QAM PO 11/30/16 09:00 12/30/16 08:59 12/01/16 09:03 75 MG Heparin Sodium (Porcine) (Heparin Sq 5000 Unit/0.5ml) 5,000 unit Q12 SQ 11/29/16 21:00 12/29/16 20:59 12/01/16 09:06 5,000 UNIT Objective Vital Signs Date Time Temp Pulse Resp B/P Pulse Ox O2 Delivery O2 Flow Rate FiO2 12/01/16 15:17 36.8 87 16 120/71 97 Room Air 12/01/16 11:57 36.8 78 17 98/62 99 Room Air 12/01/16 10:31 96 Room Air 12/01/16 08:04 36.7 78 16 102/64 96 Room Air 12/01/16 07:45 Room Air 11/30/16 23:11 36.9 92 16 102/62 97 Room Air 11/30/16 20:59 76 97/62 11/30/16 19:06 Room Air Physical Exam General Appearance: WD/WN, no apparent distress Respiratory/Chest: chest non-tender, lungs clear, normal breath sounds, no respiratory distress, no accessory muscle use Cardiovascular: regular rate, rhythm, no edema, no murmur Abdomen: normal bowel sounds, non tender, soft Extremities: normal inspection, no pedal edema Neurologic/Psychiatric: no motor/sensory deficits, alert, normal mood/affect Assessment and Plan This is a 61 year old male with PMH of CAD and ischemic cardiomyopathy, systolic CHF with EF ~ 15% s/p AICD, hx. of CVA with residual left sided weakness, seizure disorder, hx. of aspiration pneumonia, chronic resting hypotension presents to the ER after a fall with subsequent rib fractures and left pneumothorax Left Sided Pneumothorax patient presented to the ER due to a fall and rib fractures which resulted in left sided pneumothorax Had a chest tube placed in the ER was transferred to ICU for close monitoring 12/01 PT/OT discharge planning to rehab pain medications for rib pain 11/30 chest tube removed, CXR repeated with no pneumothorax antibiotics stopped as not likely pneumonia rib pain is controlled PT/OT pending, will need placement on discharge 11/29 Doing well, can transfer from ICU to tele appreciate surgical input on this matter CXR this AM shows no pneumothorax chest tube removed earlier this AM Left Rib Fracture s/p mechanical fall pain controlled does not require pain medications at this time Mechanical Fall likely due to left sided residual weakness from previous CVA He recalls event and states it was mechanical no seizure like activity, no bowel/bladder incontinence, no tongue biting will need PT/OT evaluation he is willing to go to rehab if necessary to gain his strength prior to returning home Possible Aspiration Pneumonia? this seems less likely on the differential at this time he has had problems with aspiration in the past speech evaluation pending afebrile, no white count, no signs of clear cut infection agree with d/c Augmentin Hematuria patient had a [place] catheter put in currently draining bloody urine more likely related to trauma appreciate urology input; outpatient follow-up pending Oliguria likely related to dehydration and decreased PO intake currently on clears and can advance as tolerated monitor urine output urine culture pending CAD currently holding aspirin + Plavix due to chest tube placement restart when okay with surgery continue statin, b-kris, COLIN-I Ischemic Cardiomyopathy Systolic Dysfunction, EF ~ 15% s/p AICD continue COLIN-I, b-kris Hx. of Seizure Disorder cont. Depakote Hx. of CVA restart Plavix when okay with surgery PT/PT pending due to residual weakness DVT ppx SCDs FULL NO MECHANICAL VENTILATION plan is to transfer to med/surg with chest tube out on 11/29 Discharge planning: rehab hospital
[2016-12-01] MEDS ORDERED: DOCUSATE SODIUM 100 MG CAP PO ONE (16:15)
[2016-12-01] MEDS: DIGOXIN 0.125 MG TAB PO SCH (16:33)
[2016-12-01] MEDS: DIVALPROEX 250 MG EXTENDED REL TAB PO SCH (20:27)
[2016-12-01] MEDS: DIVALPROEX 500 MG EXTENDED RELEASE TAB PO SCH (20:27)
[2016-12-01] MEDS: ATORVASTATIN 40 MG TAB PO SCH (20:27)
[2016-12-01] MEDS: LISINOPRIL 2.5 MG TAB PO SCH (20:28)
[2016-12-01] MEDS: DOCUSATE SODIUM 100 MG CAP PO SCH (20:29)
[2016-12-01 23:00] VITALS: BP 96/58; PULSE 72; TEMP 36.7; O2SAT 97
[2016-12-02 06:52] LABS: MEAN CORPUSCULAR HEMOGLOBIN 30.7 pg (25-34); MEAN PLATELET VOLUME 11.5 fL (7.4-10.4); PLATELET COUNT 161 K/uL (130-400); RED BLOOD COUNT 3.55 M/uL (4.7-6.1)
[2016-12-02 07:07] VITALS: BP 90/50; PULSE 67; TEMP 36.7; O2SAT 96
[2016-12-02 07:28] LABS: CALCIUM 8.7 mg/dl (8.5-10.1); CREATININE 0.82 mg/dl (0.60-1.40); POTASSIUM 4.1 mmol/L (3.5-5.1)
--- NOTE | 2016-12-02 07:47 | DIAGNOSTIC IMAGING REPORT ---
CHEST ONE VIEW PORTABLE HISTORY: Dyspnea. COMPARISON: Chest 12/01/2016. FINDINGS: Left-sided single lead pacemaker. No pneumothorax. Low lung volumes. The heart is normal in size. No focal lung consolidations to suggest pneumonia. No evidence for pulmonary edema. No pleural effusions. Linear density left lung base have a most completely resolved. IMPRESSION: Near complete resolution of the suspected left basilar subsegmental atelectasis. No acute process within the chest. Electronically signed by: Deion Terry M.D. 12/02/2016 7:45 AM Dictated Date/Time: 12/02/2016 7:44 AM
[2016-12-02] MEDS: METOPROLOL SUCC 25MG EXT REL TAB PO SCH (09:00)
[2016-12-02] MEDS: SENNA 8.6 MG TAB PO SCH (09:44)
[2016-12-02] MEDS: FLUOXETINE HCL 20 MG CAP PO SCH (09:44)
[2016-12-02] MEDS: LACTOBACILLUS ACIDOPHILUS (FLORANEX) TAB PO SCH ×2 (09:45→21:19)
[2016-12-02] MEDS: CLOPIDOGREL BISULFATE 75 MG TAB PO SCH (09:45)
[2016-12-02] MEDS: ASPIRIN 81 MG ECTAB PO SCH (09:45)
[2016-12-02] MEDS: PANTOprazole SOD 40 MG TAB PO SCH (09:46)
[2016-12-02] MEDS: DOCUSATE SODIUM 100 MG CAP PO SCH ×2 (10:39→21:19)
[2016-12-02] MEDS: HEPARIN SOD 5000 UNIT/0.5 ML CARP SQ SCH ×2 (10:43→21:21)
[2016-12-02 10:54] VITALS: BP 97/63; PULSE 63; O2SAT 96
[2016-12-02 15:29] LABS: URINE APPEARANCE CLEAR (CLEAR); URINE BILIRUBIN NEG (NEG); URINE COLOR YELLOW; URINE NITRITE NEG (NEG); URINE PH 6.5 (4.5-7.5); UROBILINOGEN NEG (NEG)
[2016-12-02 15:36] LABS: MANUAL MICROSCOPIC REQUIRED? YES; REVIEW REQ? NO
[2016-12-02 15:39] VITALS: BP 106/50; PULSE 67; TEMP 36.4; O2SAT 99
[2016-12-02 15:40] LABS: URINE BACTERIA 1+ (NEG); URINE RBC 0-4 /hpf (0-4); ZZUR CULT IF INDIC CLEAN CATCH YES
--- NOTE | 2016-12-02 17:27 | Progress Note ---
Subjective Date of Service: Dec 02, 2016. Subjective Pt evaluation today including: conversation w/ patient, physical exam, lab review, review of studies, review of inpatient medication list Saw/examined the patient in room 310 He's doing well, he has no complaints No significant rib pain No chest pain/shortness of breath Problem List Medical Problems: (1) Blunt abdominal trauma Status: Acute (2) Contusion of left hand Status: Acute (3) Contusion of left shoulder Status: Acute (4) Contusion of left wrist Status: Acute (5) Contusion of lower back Status: Acute (6) Fall Status: Acute (7) Frequent falls Status: Acute (8) Hypoxia Status: Acute (9) Hypoxia Status: Acute (10) Lactic acidosis Status: Acute (11) Left rib fracture Status: Acute (12) Pneumothorax, left Status: Acute (13) Shoulder contusion Status: Acute (14) Vomiting Status: Acute Review of Systems Respiratory: No cough, No dyspnea on exertion, No shortness of breath, No sputum, No wheezing Cardiac: No chest pain, No orthopnea Abdomen: + constipation, No diarrhea, No nausea, No pain, No vomiting Male : + dysuria, + urinary frequency Medications Current Inpatient Medications Medications (Trade) Dose Ordered Sig/Ton Route Start Time Stop Time Status Last Admin Dose Admin Acetaminophen (Tylenol Tab) 650 mg Q4H PRN PO 11/28/16 16:00 12/28/16 15:59 12/02/16 08:01 650 MG Alendronate Sodium (Fosamax Tab) 70 mg We@0700 PO 12/03/16 07:00 01/02/17 06:59 Atorvastatin Calcium (Lipitor Tab) 40 mg HS PO 11/28/16 21:00 12/28/16 20:59 12/01/16 20:27 40 MG Digoxin (Lanoxin Tab) 0.125 mg DAILY@1600 PO 11/29/16 16:00 12/29/16 15:59 12/01/16 16:33 0.125 MG Divalproex Sodium (Depakote Extended Rel Tab) 250 mg HS PO 11/28/16 21:00 12/28/16 20:59 12/01/16 20:27 250 MG Divalproex Sodium (Depakote Extended Rel Tab) 1,000 mg HS PO 11/28/16 21:00 12/28/16 20:59 12/01/16 20:27 1,000 MG Fluoxetine HCl (Prozac Cap) 40 mg DAILY PO 11/29/16 09:00 12/29/16 08:59 12/02/16 09:44 40 MG Furosemide (Lasix Tab) 20 mg Q2D@0900 PO 11/29/16 09:00 12/29/16 08:59 12/01/16 09:07 20 MG Lactobacillus Acidophilus (Floranex Tab) 2 tab BID PO 11/28/16 21:00 12/28/16 20:59 12/02/16 09:45 2 TAB Lisinopril (Zestril Tab) 1.25 mg HS PO 11/28/16 21:00 12/28/16 20:59 12/01/16 20:28 1.25 MG Metoprolol Succinate (Toprol Xl Tab) 25 mg DAILY PO 11/29/16 09:00 12/29/16 08:59 12/01/16 09:03 25 MG Pantoprazole Sodium (Protonix Tab) 40 mg DAILY PO 11/29/16 09:00 12/29/16 08:59 12/02/16 09:46 40 MG Morphine Sulfate (MoRPHine SULFATE INJ) 2 mg Q2H PRN IV 11/28/16 19:00 12/12/16 18:59 11/29/16 20:59 2 MG Nitroglycerin (Nitrostat Tab) 0.4 mg UD PRN SL 11/28/16 19:00 12/28/16 18:59 Al Hydrox/Mg Hydrox/Simethicone (Maalox Max Susp) 15 ml Q4H PRN PO 11/28/16 19:00 12/28/16 18:59 Magnesium Hydroxide (Milk Of Magnesia Susp) 30 ml Q12H PRN PO 11/28/16 19:00 12/28/16 18:59 Ondansetron HCl (Zofran Inj) 4 mg Q6H PRN IV 11/28/16 19:00 12/28/16 18:59 Aspirin (Ecotrin Tab) 81 mg QAM PO 11/30/16 09:00 12/30/16 08:59 12/02/16 09:45 81 MG Clopidogrel Bisulfate (plAVix TAB) 75 mg QAM PO 11/30/16 09:00 12/30/16 08:59 12/02/16 09:45 75 MG Heparin Sodium (Porcine) (Heparin Sq 5000 Unit/0.5ml) 5,000 unit Q12 SQ 11/29/16 21:00 12/29/16 20:59 12/02/16 10:43 5,000 UNIT Docusate Sodium (coLACE CAP) 100 mg BID PO 12/01/16 21:00 12/31/16 20:59 12/02/16 10:39 100 MG Senna (Senokot Tab) 8.6 mg QAM PO 12/02/16 09:00 01/01/17 08:59 12/02/16 09:44 8.6 MG Objective Vital Signs Date Time Temp Pulse Resp B/P Pulse Ox O2 Delivery O2 Flow Rate FiO2 12/02/16 15:39 36.4 67 16 106/50 99 Room Air 12/02/16 10:54 63 97/63 96 Room Air 12/02/16 07:15 Room Air 12/02/16 07:07 36.7 67 16 90/50 96 Room Air 12/02/16 00:10 Room Air 12/01/16 23:00 36.7 72 16 96/58 97 Room Air Physical Exam General Appearance: no apparent distress Respiratory/Chest: lungs clear, normal breath sounds, no respiratory distress, no accessory muscle use Cardiovascular: regular rate, rhythm, no edema, no murmur Abdomen: normal bowel sounds, non tender, soft Extremities: normal inspection, no pedal edema Laboratory Results Last 24 Hours Test 12/02/16 06:19 12/02/16 12:40 White Blood Count 5.60 K/uL Red Blood Count 3.55 M/uL Hemoglobin 10.9 g/dL Hematocrit 33.0 % Mean Corpuscular Volume 93.0 fL Mean Corpuscular Hemoglobin 30.7 pg Mean Corpuscular Hemoglobin Concent 33.0 g/dl RDW Standard Deviation 53.8 fL RDW Coefficient of Variation 15.8 % Platelet Count 161 K/uL Mean Platelet Volume 11.5 fL Sodium Level 142 mmol/L Potassium Level 4.1 mmol/L Chloride Level 107 mmol/L Carbon Dioxide Level 29 mmol/L Anion Gap 6.0 mmol/L Blood Urea Nitrogen 14 mg/dl Creatinine 0.82 mg/dl Est Creatinine Clear Calc Drug Dose 78.2 ml/min Estimated GFR () 109.8 Estimated GFR (Non- 94.8 BUN/Creatinine Ratio 17.0 Random Glucose 95 mg/dl Calcium Level 8.7 mg/dl Magnesium Level 2.0 mg/dl Urine Color YELLOW Urine Appearance CLEAR Urine pH 6.5 Urine Specific [place] 1.010 Urine Protein NEG Urine Glucose (UA) NEG Urine Ketones NEG Urine Occult Blood 1+ Urine Nitrite NEG Urine Bilirubin NEG Urine Urobilinogen NEG Urine Leukocyte Esterase TRACE Urine RBC 0-4 /hpf Urine WBC 5-10 /hpf Urine Epithelial Cells 0-5 /lpf Urine Bacteria 1+ Assessment and Plan This is a 61 year old male with PMH of CAD and ischemic cardiomyopathy, systolic CHF with EF ~ 15% s/p AICD, hx. of CVA with residual left sided weakness, seizure disorder, hx. of aspiration pneumonia, chronic resting hypotension presents to the ER after a fall with subsequent rib fractures and left pneumothorax Left Sided Pneumothorax patient presented to the ER due to a fall and rib fractures which resulted in left sided pneumothorax Had a chest tube placed in the ER was transferred to ICU for close monitoring / pain controlled, no issues to note regarding his pneumothorax and pain 4/ PT/OT discharge planning to rehab pain medications for rib pain 4/ chest tube removed, CXR repeated with no pneumothorax antibiotics stopped as not likely pneumonia rib pain is controlled PT/OT pending, will need placement on discharge 11/29 Doing well, can transfer from ICU to tele appreciate surgical input on this matter CXR this AM shows no pneumothorax chest tube removed earlier this AM Urinary Frequency/Dysuria repeat UA pending urine culture if indicated initial cult shows three organisms, but no sensitivities will start abx. Constipation colace + senna started Left Rib Fracture s/p mechanical fall pain controlled does not require pain medications at this time Mechanical Fall likely due to left sided residual weakness from previous CVA He recalls event and states it was mechanical no seizure like activity, no bowel/bladder incontinence, no tongue biting will need PT/OT evaluation he is willing to go to rehab if necessary to gain his strength prior to returning home Possible Aspiration Pneumonia? this seems less likely on the differential at this time he has had problems with aspiration in the past speech evaluation pending afebrile, no white count, no signs of clear cut infection agree with d/c Augmentin Hematuria patient had a [place] catheter put in currently draining bloody urine more likely related to trauma appreciate urology input; outpatient follow-up pending Oliguria likely related to dehydration and decreased PO intake currently on clears and can advance as tolerated monitor urine output repeat urine culture pending CAD currently holding aspirin + Plavix due to chest tube placement restart when okay with surgery continue statin, b-kris, COLIN-I Ischemic Cardiomyopathy Systolic Dysfunction, EF ~ 15% s/p AICD continue COLIN-I, b-kris Hx. of Seizure Disorder cont. Depakote Hx. of CVA restart Plavix when okay with surgery PT/PT pending due to residual weakness DVT ppx SCDs FULL NO MECHANICAL VENTILATION plan is to transfer to med/surg with chest tube out on 11/29 Discharge planning: rehab hospital
[2016-12-02] MEDS: DIGOXIN 0.125 MG TAB PO SCH (19:17)
[2016-12-02] MEDS: DIVALPROEX 250 MG EXTENDED REL TAB PO SCH (21:19)
[2016-12-02] MEDS: DIVALPROEX 500 MG EXTENDED RELEASE TAB PO SCH (21:19)
[2016-12-02] MEDS: LISINOPRIL 2.5 MG TAB PO SCH (21:20)
[2016-12-02] MEDS: ATORVASTATIN 40 MG TAB PO SCH (21:29)
[2016-12-02 23:25] VITALS: BP 104/63; PULSE 64; TEMP 36.3; O2SAT 98
[2016-12-03 06:56] VITALS: BP 93/59; PULSE 65; TEMP 36.6; O2SAT 98
[2016-12-03] MEDS ORDERED: ALENDRONATE SODIUM 70 MG TAB PO SCH (07:00)
--- NOTE | 2016-12-03 07:55 | DIAGNOSTIC IMAGING REPORT ---
CHEST ONE VIEW PORTABLE HISTORY: Follow-up left basilar densities. COMPARISON: Chest 12/02/2016. FINDINGS: Low lung volumes. Left-sided single lead pacemaker/defibrillator. The heart is normal in size. No pleural effusions. No pneumothorax. Right lung is clear. No change in the left basilar linear densities. IMPRESSION: No change in the left basilar linear densities. This may represent atelectasis or scarring. A pneumonia could also have a similar appearance but is considered less likely. Electronically signed by: Deion Terry M.D. 12/03/2016 7:54 AM Dictated Date/Time: 12/03/2016 7:53 AM
[2016-12-03] MEDS: ASPIRIN 81 MG ECTAB PO SCH (08:45)
[2016-12-03] MEDS: DOCUSATE SODIUM 100 MG CAP PO SCH (08:45)
[2016-12-03] MEDS: CLOPIDOGREL BISULFATE 75 MG TAB PO SCH (08:46)
[2016-12-03] MEDS: PANTOprazole SOD 40 MG TAB PO SCH (08:46)
[2016-12-03] MEDS: LACTOBACILLUS ACIDOPHILUS (FLORANEX) TAB PO SCH (08:46)
[2016-12-03] MEDS: FLUOXETINE HCL 20 MG CAP PO SCH (08:46)
[2016-12-03] MEDS: SENNA 8.6 MG TAB PO SCH (08:47)
[2016-12-03] MEDS: METOPROLOL SUCC 25MG EXT REL TAB PO SCH (08:47)
[2016-12-03] MEDS: FUROSEMIDE 20 MG TAB PO SCH (08:48)
[2016-12-03] MEDS: HEPARIN SOD 5000 UNIT/0.5 ML CARP SQ SCH (08:53)
--- NOTE | 2016-12-03 09:46 | Progress Note ---
Subjective Date of Service: Dec 03, 2016. Subjective Pt evaluation today including: conversation w/ patient, physical exam, lab review, review of studies, review of inpatient medication list Saw/examined the patient in room 310 He's doing well, no problems/issues to note, denies shortness of breath or chest pain Denies chest wall/rib tenderness + left sided chronic weakness Problem List Medical Problems: (1) Blunt abdominal trauma Status: Acute (2) Contusion of left hand Status: Acute (3) Contusion of left shoulder Status: Acute (4) Contusion of left wrist Status: Acute (5) Contusion of lower back Status: Acute (6) Fall Status: Acute (7) Frequent falls Status: Acute (8) Hypoxia Status: Acute (9) Hypoxia Status: Acute (10) Lactic acidosis Status: Acute (11) Left rib fracture Status: Acute (12) Pneumothorax, left Status: Acute (13) Shoulder contusion Status: Acute (14) Vomiting Status: Acute Review of Systems Respiratory: No cough, No shortness of breath, No sputum Cardiac: No chest pain, No edema, No palpitations Heme: No abnormal bleeding/bruising Medications Current Inpatient Medications Medications (Trade) Dose Ordered Sig/Ton Route Start Time Stop Time Status Last Admin Dose Admin Acetaminophen (Tylenol Tab) 650 mg Q4H PRN PO 11/28/16 16:00 12/28/16 15:59 12/02/16 08:01 650 MG Alendronate Sodium (Fosamax Tab) 70 mg We@0700 PO 12/03/16 07:00 01/02/17 06:59 12/03/16 06:36 70 MG Atorvastatin Calcium (Lipitor Tab) 40 mg HS PO 11/28/16 21:00 12/28/16 20:59 12/02/16 21:29 40 MG Digoxin (Lanoxin Tab) 0.125 mg DAILY@1600 PO 11/29/16 16:00 12/29/16 15:59 12/02/16 19:17 0.125 MG Divalproex Sodium (Depakote Extended Rel Tab) 250 mg HS PO 11/28/16 21:00 12/28/16 20:59 12/02/16 21:19 250 MG Divalproex Sodium (Depakote Extended Rel Tab) 1,000 mg HS PO 11/28/16 21:00 12/28/16 20:59 12/02/16 21:19 1,000 MG Fluoxetine HCl (Prozac Cap) 40 mg DAILY PO 11/29/16 09:00 12/29/16 08:59 12/03/16 08:46 40 MG Furosemide (Lasix Tab) 20 mg Q2D@0900 PO 11/29/16 09:00 12/29/16 08:59 12/03/16 08:48 20 MG Lactobacillus Acidophilus (Floranex Tab) 2 tab BID PO 11/28/16 21:00 12/28/16 20:59 12/03/16 08:46 2 TAB Lisinopril (Zestril Tab) 1.25 mg HS PO 11/28/16 21:00 12/28/16 20:59 12/02/16 21:20 1.25 MG Metoprolol Succinate (Toprol Xl Tab) 25 mg DAILY PO 11/29/16 09:00 12/29/16 08:59 12/01/16 09:03 25 MG Pantoprazole Sodium (Protonix Tab) 40 mg DAILY PO 11/29/16 09:00 12/29/16 08:59 12/03/16 08:46 40 MG Morphine Sulfate (MoRPHine SULFATE INJ) 2 mg Q2H PRN IV 11/28/16 19:00 12/12/16 18:59 11/29/16 20:59 2 MG Nitroglycerin (Nitrostat Tab) 0.4 mg UD PRN SL 11/28/16 19:00 12/28/16 18:59 Al Hydrox/Mg Hydrox/Simethicone (Maalox Max Susp) 15 ml Q4H PRN PO 11/28/16 19:00 12/28/16 18:59 Magnesium Hydroxide (Milk Of Magnesia Susp) 30 ml Q12H PRN PO 11/28/16 19:00 12/28/16 18:59 Ondansetron HCl (Zofran Inj) 4 mg Q6H PRN IV 11/28/16 19:00 12/28/16 18:59 Aspirin (Ecotrin Tab) 81 mg QAM PO 11/30/16 09:00 12/30/16 08:59 12/03/16 08:45 81 MG Clopidogrel Bisulfate (plAVix TAB) 75 mg QAM PO 11/30/16 09:00 12/30/16 08:59 12/03/16 08:46 75 MG Heparin Sodium (Porcine) (Heparin Sq 5000 Unit/0.5ml) 5,000 unit Q12 SQ 11/29/16 21:00 12/29/16 20:59 12/03/16 08:53 5,000 UNIT Docusate Sodium (coLACE CAP) 100 mg BID PO 12/01/16 21:00 12/31/16 20:59 12/03/16 08:45 100 MG Senna (Senokot Tab) 8.6 mg QAM PO 12/02/16 09:00 01/01/17 08:59 12/03/16 08:47 8.6 MG Objective Vital Signs Date Time Temp Pulse Resp B/P Pulse Ox O2 Delivery O2 Flow Rate FiO2 12/03/16 08:20 Room Air 12/03/16 06:56 36.6 65 18 93/59 98 Room Air 12/02/16 23:25 36.3 64 16 104/63 98 Room Air 12/02/16 19:25 Room Air 12/02/16 19:17 71 12/02/16 15:39 36.4 67 16 106/50 99 Room Air 12/02/16 10:54 63 97/63 96 Room Air Physical Exam General Appearance: no apparent distress Respiratory/Chest: lungs clear, normal breath sounds, no respiratory distress, no accessory muscle use Cardiovascular: regular rate, rhythm, no edema, no murmur Neurologic/Psychiatric: + pertinent finding (chronic left sided weakness and hand contraction) Laboratory Results Last 24 Hours Test 12/02/16 12:40 Urine Color YELLOW Urine Appearance CLEAR Urine pH 6.5 Urine Specific [place] 1.010 Urine Protein NEG Urine Glucose (UA) NEG Urine Ketones NEG Urine Occult Blood 1+ Urine Nitrite NEG Urine Bilirubin NEG Urine Urobilinogen NEG Urine Leukocyte Esterase TRACE Urine RBC 0-4 /hpf Urine WBC 5-10 /hpf Urine Epithelial Cells 0-5 /lpf Urine Bacteria 1+ Assessment and Plan This is a 61 year old male with PMH of CAD and ischemic cardiomyopathy, systolic CHF with EF ~ 15% s/p AICD, hx. of CVA with residual left sided weakness, seizure disorder, hx. of aspiration pneumonia, chronic resting hypotension presents to the ER after a fall with subsequent rib fractures and left pneumothorax Left Sided Pneumothorax patient presented to the ER due to a fall and rib fractures which resulted in left sided pneumothorax Had a chest tube placed in the ER was transferred to ICU for close monitoring 12/03 CXR this morning is stable, no pneumothorax he has chronic left sided weakness and contraction will need rehab on discharge 12/02 pain controlled, no issues to note regarding his pneumothorax and pain 12/01 PT/OT discharge planning to rehab pain medications for rib pain 11/30 chest tube removed, CXR repeated with no pneumothorax antibiotics stopped as not likely pneumonia rib pain is controlled PT/OT pending, will need placement on discharge 11/29 Doing well, can transfer from ICU to [facility] appreciate surgical input on this matter CXR this AM shows no pneumothorax chest tube removed earlier this AM Urinary Frequency/Dysuria repeat UA pending urine culture if indicated initial cult shows three organisms, but no sensitivities will start abx. Constipation colace + senna started Left Rib Fracture s/p mechanical fall pain controlled does not require pain medications at this time Mechanical Fall likely due to left sided residual weakness from previous CVA He recalls event and states it was mechanical no seizure like activity, no bowel/bladder incontinence, no tongue biting will need PT/OT evaluation he is willing to go to rehab if necessary to gain his strength prior to returning home Possible Aspiration Pneumonia? this seems less likely on the differential at this time he has had problems with aspiration in the past speech evaluation pending afebrile, no white count, no signs of clear cut infection agree with d/c Augmentin Hematuria patient had a [place] catheter put in currently draining bloody urine more likely related to trauma appreciate urology input; outpatient follow-up pending Oliguria likely related to dehydration and decreased PO intake currently on clears and can advance as tolerated monitor urine output repeat urine culture pending CAD currently holding aspirin + Plavix due to chest tube placement restart when okay with surgery continue statin, b-kris, COLIN-I Ischemic Cardiomyopathy Systolic Dysfunction, EF ~ 15% s/p AICD continue COLIN-I, b-kris Hx. of Seizure Disorder cont. Depakote Hx. of CVA restart Plavix when okay with surgery PT/PT pending due to residual weakness DVT ppx SCDs FULL NO MECHANICAL VENTILATION plan is to transfer to med/surg with chest tube out on 11/29 Discharge planning: rehab hospital
--- NOTE | 2016-12-03 09:49 | Discharge Instructions ---
Discharge Instructions Date of Service Dec 03, 2016. Admission Reason for Admission: Fall, Left Rib Fracture, Pneumothorax-Left Discharge Discharge Diagnosis / Problem: Left Pneumothorax, Left Rib Fracture s/p Mechanical Fall Discharge Goals Goal(s): Decrease discomfort, Improve function, Diagnostic testing, Therapeutic intervention Activity Recommendations Activity Limitations: resume your previous activity . Instructions / Follow-Up Instructions / Follow-Up Patient may need bowel regimen for constipation Pain controlled, currently not requiring any pain medications for the left ribs + / - urinary symptoms - cultures pending, may need antibiotics if persists Current Hospital Diet Patient's current hospital diet: Regular Diet Discharge Diet Recommended Diet: Regular Diet Pending Studies Studies pending at discharge: no Medical Emergencies . Who to Call and When: Medical Emergencies: If at any time you feel your situation is an emergency, please call 911 immediately. . Non-Emergent Contact Non-Emergency issues call your: Primary Care Provider . . "Provider Documentation" section prepared by Tyrese Millan. VTE Core Measure Inpt VTE Proph given/why not?: SCD's
[2016-12-03 09:51] VITALS: BP 93/59; PULSE 65; TEMP 36.6; O2SAT 98
--- NOTE | 2016-12-03 09:51 | Discharge Summary ---
Discharge Summary Date of Service Dec 03, 2016. Discharge Summary Admission Date: Nov 28, 2016 at 16:52 Discharge Date: Dec 03, 2016 Discharge Disposition: Rehab Principal Diagnosis: Mechanical Fall Left Rib Fracture Left Pneumothorax Medication Reconciliation Continued Medications: Alendronate Sodium (Fosamax) 70 Mg Tab 70 MG PO WK, TAB TAKE THIS MEDICATION EVERY THURSDAY Aspirin Enteric Coated (Ecotrin Or Generic) 81 Mg Tab 81 MG PO DAILY, TAB Atorvastatin (Lipitor) 40 Mg Tab 40 MG PO HS, TAB Clopidogrel Bisulfate (Plavix) 75 Mg Tab 75 MG PO DAILY, TAB Dexlansoprazole (Dexilant) 60 Mg Cap 60 MG PO DAILY Digoxin (Digoxin) 0.125 Mg Tab 0.125 MG PO DAILY Divalproex Sodium (Divalproex Sodium ER) 250 Mg Tabcr 250 MG PO HS Divalproex Sodium (Divalproex Sodium ER) 500 Mg Tabcr 1000 MG PO HS Fluoxetine (Prozac) 40 Mg Cap 40 MG PO DAILY Furosemide (Lasix) 20 Mg Tab 20 MG PO Q2D, TAB Lactobacillus Acidophilus (Lactinex) Tab 2 TAB PO BID, #30 TAB Lisinopril (Lisinopril) 2.5 Mg Tab 1.25 MG PO HS, TAB Metoprolol Succ (Toprol Xl) (Toprol-Xl) 25 Mg Tabcr 25 MG PO DAILY, TAB Admission Information HPI (per Admitting provider): Patient seen and examined. 61 year old male with PMHx of CHF s/p ICD, CAD, CVA, COPD, and other problems listed below presents to the ED complaining of left rib pain following an unwitnessed fall prior to arrival. Patient states he was walking in his kitchen when he lost his balance and fell. He reports striking his head and was unable to get up without help. He reports that he immediately had sharp left sided rib pain and associated SOB. EMS was called and brought patient to the ED for further evaluation. Patient reports he has chronic left sided weakness following his stroke and he has multiple falls that he believes is secondary to this. He denies fevers, chills, URI symptoms, chest pain, palpitations, nausea, vomiting, diarrhea, dysuria, calf pain and edema. In the ED CT head was negative, CT chest showed moderate 30% left pneumothorax, and left fourth rib fracture. Chest tube was placed. Patient will be admitted for further workup and treatment. Physical Exam (per Admitting): General Appearance: + pertinent finding (Pleasant WD/WN 61 year old male who appears older than stated age lying in bed in NAD ) Head: normocephalic, atraumatic Eyes: PERRL, EOMI, sclerae normal ENT: hearing grossly normal, pharynx normal Neck: supple, no JVD Respiratory/Chest: lungs clear, normal breath sounds (decreased breath sounds left lung ), no respiratory distress, no accessory muscle use, + pertinent finding (left chest tube in placed ) Cardiovascular: regular rate, rhythm, no edema, no gallop, no JVD, no murmur , normal peripheral pulses Abdomen/GI: normal bowel sounds, non tender, soft, no organomegaly Back: normal inspection, no muscle spasm Extremities/Musculoskelatal: no calf tenderness, normal capillary refill, no pedal edema Neurologic/Psych: alert, oriented x 3, + pertinent finding (Hemiparesis LUE , decreased strenght LLE) Skin: normal color, warm/dry, no rash Lymphatic: no adenopathy Hospital Course This is a 61 year old male with PMH of CAD and ischemic cardiomyopathy, systolic CHF with EF ~ 15% s/p AICD, hx. of CVA with residual left sided weakness, seizure disorder, hx. of aspiration pneumonia, chronic resting hypotension presents to the ER after a fall with subsequent rib fractures and left pneumothorax Left Sided Pneumothorax patient presented to the ER due to a fall and rib fractures which resulted in left sided pneumothorax Had a chest tube placed in the ER was transferred to ICU for close monitoring 4/ CXR this morning is stable, no pneumothorax he has chronic left sided weakness and contraction will need rehab on discharge 12/02 pain controlled, no issues to note regarding his pneumothorax and pain 12/01 PT/OT discharge planning to rehab pain medications for rib pain 4/2 chest tube removed, CXR repeated with no pneumothorax antibiotics stopped as not likely pneumonia rib pain is controlled PT/OT pending, will need placement on discharge 11/29 Doing well, can transfer from ICU to tele appreciate surgical input on this matter CXR this AM shows no pneumothorax chest tube removed earlier this AM Urinary Frequency/Dysuria repeat UA pending urine culture if indicated initial cult shows three organisms, but no sensitivities will start abx. Constipation colace + senna started Left Rib Fracture s/p mechanical fall pain controlled does not require pain medications at this time Mechanical Fall likely due to left sided residual weakness from previous CVA He recalls event and states it was mechanical no seizure like activity, no bowel/bladder incontinence, no tongue biting will need PT/OT evaluation he is willing to go to rehab if necessary to gain his strength prior to returning home Possible Aspiration Pneumonia? this seems less likely on the differential at this time he has had problems with aspiration in the past speech evaluation pending afebrile, no white count, no signs of clear cut infection agree with d/c Augmentin Hematuria patient had a [place] catheter put in currently draining bloody urine more likely related to trauma appreciate urology input; outpatient follow-up pending Oliguria likely related to dehydration and decreased PO intake currently on clears and can advance as tolerated monitor urine output repeat urine culture pending CAD currently holding aspirin + Plavix due to chest tube placement restart when okay with surgery continue statin, b-kris, COLIN-I Ischemic Cardiomyopathy Systolic Dysfunction, EF ~ 15% s/p AICD continue COLIN-I, b-kris Hx. of Seizure Disorder cont. Depakote Hx. of CVA restart Plavix when okay with surgery PT/PT pending due to residual weakness DVT ppx SCDs FULL NO MECHANICAL VENTILATION plan is to transfer to med/surg with chest tube out on 11/29 Discharge planning: rehab hospital Total time spent on discharge = 35 minutes This includes examination of the patient, discharge planning, medication reconciliation, and communication with other providers. Discharge Instructions Patient may need bowel regimen for constipation Pain controlled, currently not requiring any pain medications for the left ribs + / - urinary symptoms - cultures pending, may need antibiotics if persists
--- NOTE | 2017-01-09 07:56 | EDITING REQUIRED CODING QUERY ---
CODING QUERY To promote full compliance with coding requirements relating to patient care, provider participation is requested in all cases of parole agent uncertainty. Please assist us with the question(s) below: Coding Question(s): Below can you please clarify the diagnosis of Aspiration Pneumonitis. Physician's Response(s): ( ) Aspiration Pneumonitis-POA ( X ) Aspiration Pneumonitis-Ruled Out ( ) Other: Please Specify: Thank you Hetal Borrero Principal Diagnosis: "_that condition established after study, to be chiefly responsible for occasioning the admission of the patient to the hospital for care." Co-Existing Principal Diagnosis: "_when two or more diagnoses equally meet the criteria for principal diagnosis as determined by the circumstances of admission, diagnostic work up, and/or therapy provided, and the Alphabetic Index, Tabular List, or another coding guideline does not provide sequencing direction, any one of the diagnoses may be sequenced first." "When the physician has documented what appears to be a current diagnosis in the body of the record, but has not included the diagnosis in the final diagnostic statement, the physician should be asked whether the diagnosis should be added." (Source Coding Clinic 2 QTR90. p3-4)
== END 2016-12-03 15:43 | DRG 200 ==
LOC: ENRESERVDT → CANRESERV → ENRESERVTM → EDBD 11:22 → C.EDC 11:26 → EDBEDREQSVC 16:51 → C.MSICU 16:52 → C.3E 11-29 12:29
PROVIDERS: ADMIT Internal Medicine; ATTEND Family Medicine
PROC: 0T9B70Z Drainage of Bladder with Drainage Device, Via Natural or Artificial Opening (ICD-10-PCS; principal; 2016-11-28)
PROC: 0B9P30Z Drainage of Left Pleura with Drainage Device, Percutaneous Approach (ICD-10-PCS; principal; 2016-11-28)
DX: J93.9 Pneumothorax, unspecified (principal); S22.32XA Fracture of one rib, left side, initial encounter for closed fracture; I69.352 Hemiplegia and hemiparesis following cerebral infarction affecting left dominant side; I50.22 Chronic systolic (congestive) heart failure; S37.39XA Other injury of urethra, initial encounter; I25.10 Atherosclerotic heart disease of native coronary artery without angina pectoris; I25.5 Ischemic cardiomyopathy; R30.0 Dysuria; Z95.810 Presence of automatic (implantable) cardiac defibrillator; Z86.73 Personal history of transient ischemic attack (TIA), and cerebral infarction without residual deficits; K59.00 Constipation, unspecified; R31.9 Hematuria, unspecified; R34 Anuria and oliguria; E86.0 Dehydration; Z79.82 Long term (current) use of aspirin; G40.909 Epilepsy, unspecified, not intractable, without status epilepticus; Z79.02 Long term (current) use of antithrombotics/antiplatelets; Z82.49 Family history of ischemic heart disease and other diseases of the circulatory system; F32.9 Major depressive disorder, single episode, unspecified; D69.6 Thrombocytopenia, unspecified; W18.39XA Other fall on same level, initial encounter; J44.9 Chronic obstructive pulmonary disease, unspecified; Z87.891 Personal history of nicotine dependence; I48.91 Unspecified atrial fibrillation; K21.9 Gastro-esophageal reflux disease without esophagitis; M81.0 Age-related osteoporosis without current pathological fracture

== ENCOUNTER 2017-01-05 16:03 | Emergency (ER) | payer OTHER ==
[~2017-01-05] VITALS: Ht 162.6 cm; Wt 66.2 kg
[~2017-01-05 16:03] MED LIST changes: -AMOX1TAB43 PO
[2017-01-05 16:16] VITALS: Ht 162.6 cm; Wt 66.2 kg
--- NOTE | 2017-01-05 16:52 | EMERGENCY ROOM VISIT NOTE ---
History Report prepared by Shahid: Adan Ramirez Under the Supervision of: Dr. Kathryn Montero M.D. First contact with patient: 16:31 Chief Complaint: FALL Stated Complaint: FALL/ HEAD PAIN/SWELLING History of Present Illness The patient is a 61 year old male who presents to the Emergency Room with complaints of constant left shoulder pain due to a fall beginning several hours prior to arrival. He also complains of left hand pain with today's symptoms. The patient states he was getting off of his bedside commode this morning, when he stood up and lost his balance. He notes he hit his head, but he denies a headache. The patient states he was in the ED a couple weeks ago for a fall, in which, he broke a rib and punctured his lung. He notes he has been to [facility] four time, with his last rehab a couple weeks ago. The patient states he feels he needs to go back to [facility] at this time. The patient denies neck pain. Source of History: patient Onset: several hours LATHE WINDER Position: shoulder (left) Timing: constant Associated Symptoms: No headache, No neck pain Note: Associated symptoms: left hand pain. Review of Systems See HPI for pertinent positives & negatives. A total of 10 systems reviewed and were otherwise negative. Past Medical & Surgical Medical Problems: (1) CAD (coronary artery disease) (2) Cardiac defibrillator in situ (3) Cardiomyopathy (4) Carotid stenosis (5) Convulsions (6) CVA (cerebral infarction) (7) Depressive disorder (8) Dyslipidemia (9) GERD (gastroesophageal reflux disease) (10) History of alcohol abuse (11) History of atrial fibrillation (12) Idiopathic hypotension (13) Ischemic cardiomyopathy (14) Kidney stone (15) Left spastic hemiplegia (16) [place] (myocardial infarction) (17) Osteoporosis (18) PUD (peptic ulcer disease) (19) S/P ORIF (open reduction internal fixation) fracture (20) Systolic CHF, chronic Surgical Problems: (1) H/O colonoscopy with polypectomy (2) H/O esophagogastroduodenoscopy (3) S/P appendectomy (4) S/P cardiac catheterization Family History FH: heart disease FATHER MOTHER Social History Smoking Status: Former Smoker Alcohol Use: none Marital Status: Housing Status: lives with family Occupation Status: disabled Current/Historical Medications Scheduled Alendronate Sodium (Fosamax), 70 MG PO WK Aspirin Enteric Coated (Ecotrin Or Generic), 81 MG PO DAILY Atorvastatin (Lipitor), 40 MG PO HS Clopidogrel Bisulfate (Plavix), 75 MG PO DAILY Dexlansoprazole (Dexilant), 60 MG PO DAILY Digoxin (Digoxin), 0.125 MG PO DAILY Divalproex Sodium (Divalproex Sodium ER), 250 MG PO HS Divalproex Sodium (Divalproex Sodium ER), 1,000 MG PO HS Fluoxetine (Prozac), 40 MG PO DAILY Furosemide (Lasix), 20 MG PO Q2D Lactobacillus Acidophilus (Lactinex), 2 TAB PO BID Allergies Coded Allergies: Naproxen (Verified Allergy, Mild, 01/05/17) Physical Exam Vital Signs Date Time Temp Pulse Resp B/P Pulse Ox O2 Delivery O2 Flow Rate FiO2 01/05/17 20:11 81 18 110/68 99 Room Air 01/05/17 17:12 60 18 107/61 97 Room Air 01/05/17 17:08 76 01/05/17 16:16 36.8 89 18 126/80 99 Room Air Physical Exam Vital signs reviewed. General: Well-appearing male, in no significant distress. HEENT: No C-spine tenderness. No scleral icterus, PERRLA, neck supple. Atraumatic. Cardiovascular: Regular rate and rhythm, no extra sounds. Pulmonary: Clear to auscultation bilaterally, normal work of breathing. Abdomen: Soft, nontender, nondistended, positive bowel sounds. Musculoskeletal: Tenderness over the proximal left humerus, ? minimal swelling, neurovascularly intact distally with great discomfort with range of motion. Left hand is diffusely tender to touch, no significant deformity appreciated. Neurologic: Patient awake alert and oriented x 3 Skin: Warm, dry, no rash Medical Decision & Procedures ER Provider Diagnostic Interpretation: Radiology results as stated below per my review and radiologist interpretation: LEFT WRIST MIN 3 VIEWS ROUTINE CLINICAL HISTORY: L wrist pain pain COMPARISON: None. DISCUSSION: Generalized degenerative change. Osteopenia. No well-defined acute bony abnormality. Mild dorsal soft tissue edema. IMPRESSION: Soft tissue edema. Degenerative change. No acute bony abnormality. Electronically signed by: Minesh Andersen M.D. 01/05/2017 5:48 PM LEFT HUMERUS MIN 2 VIEWS ROUTINE CLINICAL HISTORY: Left humerus pain pain COMPARISON: None. DISCUSSION: The bones and joint spaces appear intact. There is no evidence of fracture, dislocation or bony disease. There is no evidence for soft tissue swelling. Moderate osteopenia. IMPRESSION: Moderate degenerative change. Osteopenia. Electronically signed by: Minesh Andersen M.D. 01/05/2017 5:[address] NON[address]AST CT DOSE: 883.01 mGy.cm HISTORY: Trauma fall, CHI TECHNIQUE: Multiaxial CT images of the head were performed without the use of intravenous contrast. Comparison: 11/28/2016 Findings: The paranasal sinuses and mastoid air cells are clear. Old right cerebral infarct. Small old left occipital infarct. Age-related atrophy. No evidence for acute intracranial hemorrhage. No midline shift. Impression: No acute intracranial abnormality. Several old infarcts. Age-related atrophy. Electronically signed by: Minesh Andersen M.D. 01/05/2017 6:59 PM Laboratory Results 01/05/17 17:00 Red Blood Count 3.96, Mean Corpuscular Volume 95.2, Mean Corpuscular Hemoglobin 31.6, Mean Corpuscular Hemoglobin Concent 33.2, Mean Platelet Volume 11.4, Neutrophils (%) (Auto) 53.0, Lymphocytes (%) (Auto) 19.7, Monocytes (%) (Auto) 24.3, Eosinophils (%) (Auto) 2.4, Basophils (%) (Auto) 0.3, Neutrophils # (Auto ) 3.03, Lymphocytes # (Auto) 1.13, Monocytes # (Auto) 1.39, Eosinophils # (Auto ) 0.14, Basophils # (Auto) 0.02 01/05/17 17:00 Test 01/05/17 17:00 01/05/17 20:15 White Blood Count 5.73 K/uL (4.8-10.8) Red Blood Count 3.96 M/uL (4.7-6.1) Hemoglobin 12.5 g/dL (14.0-18.0) Hematocrit 37.7 % (42-52) Mean Corpuscular Volume 95.2 fL (80-100) Mean Corpuscular Hemoglobin 31.6 pg (25-34) Mean Corpuscular Hemoglobin Concent 33.2 g/dl (32-36) Platelet Count 142 K/uL (130-400) Mean Platelet Volume 11.4 fL (7.4-10.4) Neutrophils (%) (Auto) 53.0 % Lymphocytes (%) (Auto) 19.7 % Monocytes (%) (Auto) 24.3 % Eosinophils (%) (Auto) 2.4 % Basophils (%) (Auto) 0.3 % Neutrophils # (Auto) 3.03 K/uL (1.4-6.5) Lymphocytes # (Auto) 1.13 K/uL (1.2-3.4) Monocytes # (Auto) 1.39 K/uL (0.11-0.59) Eosinophils # (Auto) 0.14 K/uL (0-0.5) Basophils # (Auto) 0.02 K/uL (0-0.2) RDW Standard Deviation 55.8 fL (36.4-46.3) RDW Coefficient of Variation 16.0 % (11.5-14.5) Immature Granulocyte % (Auto) 0.3 % Immature Granulocyte # (Auto) 0.02 K/uL (0.00-0.02) Prothrombin Time 11.2 SECONDS (9.0-12.0) Prothromb Time International Ratio 1.0 (0.9-1.1) Activated Partial Thromboplast Time 31.3 SECONDS (21.0-31.0) Partial Thromboplastin Ratio 1.2 Anion Gap 8.0 mmol/L (3-11) Est Creatinine Clear Calc Drug Dose 64.2 ml/min Estimated GFR () 93.1 Estimated GFR (Non- 80.3 BUN/Creatinine Ratio 11.7 (10-20) Calcium Level 9.0 mg/dl (8.5-10.1) Magnesium Level 2.2 mg/dl (1.8-2.4) Total Bilirubin 0.3 mg/dl (0.2-1) Direct Bilirubin < 0.1 mg/dl (0-0.2) Aspartate Amino Transf (AST/SGOT) 15 U/L (15-37) Alanine Aminotransferase (ALT/SGPT) 22 U/L (12-78) Alkaline Phosphatase 64 U/L (45-117) Total Protein 7.6 gm/dl (6.4-8.2) Albumin 3.5 gm/dl (3.4-5.0) Laboratory results per my review. ECG Indication: other (fall) Rate (beats per minute): 76 Rhythm: normal sinus Findings: T-wave inversion (Anterolateral), no ectopy, other (Previous anterolateral infarct) ED Course 1644: Past medical records reviewed. The patient was evaluated in room B4B. A complete history and physical examination was performed. 1930: It is noted the referral for [facility] is pending at this time. Medical Decision Differential diagnosis: Etiologies such as fracture, dislocation, neurovascular compromise, compartment syndrome, soft tissue injury, as well as others were entertained. This patient was evaluated and appeared to be in no significant distress. Physical examination is concerning for left humeral and wrist pain. X-rays were obtained and are negative. There is no significant evidence of acute trauma however review the patient's records indicates previous rib fractures and pneumothorax. I suspect the movement of the left upper extremity is in the location of the patient's previous rib fractures. There is no evidence of shoulder dislocation. Patient also has had significant CVAs with residual deficits. CT scan of the head reveals no evidence of acute intracranial abnormality, old infarcts are present. He states he would like to be transferred to [facility] for further care. At this time a referral to [facility] has been made. Dr. Arroyo has accepted the patient at the change of shift pending disposition. Impression Primary Impression: Multiple falls Additional Impressions: History of CVA with residual deficit Generalized weakness Scribe Attestation The scribe's documentation has been prepared under my direction and personally reviewed by me in its entirety. I confirm that the note above accurately reflects all work, treatment, procedures, and medical decision making performed by me. Departure Information Referrals Richardson Sterling M.D. (PCP) Patient Instructions My [facility] Problem Qualifiers
[2017-01-05 17:26] LABS: BASO % 0.3 %; BASO ABS # 0.02 K/uL (0-0.2); COMPLETE YES; EOS % 2.4 %; HEMATOCRIT 37.7 % (42-52); IG% 0.3 %; LYMPH % 19.7 %; LYMPH ABS # 1.13 K/uL (1.2-3.4); MEAN CELL VOLUME 95.2 fL (80-100); MEAN CORPUSCULAR HEMOGLOBIN 31.6 pg (25-34); MEAN CORPUSCULAR HGB CONC 33.2 g/dl (32-36); MEAN PLATELET VOLUME 11.4 fL (7.4-10.4); MONO % 24.3 %; PLATELET COUNT 142 K/uL (130-400); RED BLOOD COUNT 3.96 M/uL (4.7-6.1); WHITE BLOOD COUNT 5.73 K/uL (4.8-10.8)
[2017-01-05 17:39] LABS: ALT/SGPT 22 U/L (12-78); AST/SGOT 15 U/L (15-37); BLOOD UREA NITROGEN 12 mg/dl (7-18); BUN/CREATININE RATIO 11.7 (10-20); CARBON DIOXIDE 27 mmol/L (21-32); CHLORIDE 104 mmol/L (98-107); GLUCOSE 68 mg/dl (70-99); MAGNESIUM 2.2 mg/dl (1.8-2.4); POTASSIUM 4.2 mmol/L (3.5-5.1); SODIUM 139 mmol/L (136-145)
[2017-01-05 17:42] LABS: ALKALINE PHOSPHATASE 64 U/L (45-117)
[2017-01-05 17:43] LABS: PARTIAL THROMBOPLASTIN RATIO 1.2; PROTHROMBIN TIME (PATIENT) 11.2 SECONDS (9.0-12.0)
--- NOTE | 2017-01-05 17:49 | DIAGNOSTIC IMAGING REPORT ---
LEFT HUMERUS MIN 2 VIEWS ROUTINE CLINICAL HISTORY: Left humerus pain pain COMPARISON: None. DISCUSSION: The bones and joint spaces appear intact. There is no evidence of fracture, dislocation or bony disease. There is no evidence for soft tissue swelling. Moderate osteopenia. IMPRESSION: Moderate degenerative change. Osteopenia. Electronically signed by: Minesh Andersen M.D. 01/05/2017 5:47 PM Dictated Date/Time: 01/05/2017 5:46 PM
--- NOTE | 2017-01-05 17:50 | DIAGNOSTIC IMAGING REPORT ---
LEFT WRIST MIN 3 VIEWS ROUTINE CLINICAL HISTORY: L wrist pain pain COMPARISON: None. DISCUSSION: Generalized degenerative change. Osteopenia. No well-defined acute bony abnormality. Mild dorsal soft tissue edema. IMPRESSION: Soft tissue edema. Degenerative change. No acute bony abnormality. Electronically signed by: Minesh Andersen M.D. 01/05/2017 5:48 PM Dictated Date/Time: 01/05/2017 5:47 PM
--- NOTE | 2017-01-05 19:00 | DIAGNOSTIC IMAGING REPORT ---
HEAD CT NONCONTRAST CT DOSE: 883.01 mGy.cm HISTORY: Trauma fall, CHI TECHNIQUE: Multiaxial CT images of the head were performed without the use of intravenous contrast. Comparison: 11/28/2016 Findings: The paranasal sinuses and mastoid air cells are clear. Old right cerebral infarct. Small old left occipital infarct. Age-related atrophy. No evidence for acute intracranial hemorrhage. No midline shift. Impression: No acute intracranial abnormality. Several old infarcts. Age-related atrophy. Electronically signed by: Minesh Andersen M.D. 01/05/2017 6:59 PM Dictated Date/Time: 01/05/2017 6:57 PM
[2017-01-05 20:35] LABS: URINE APPEARANCE CLEAR (CLEAR); URINE BILIRUBIN NEG (NEG); URINE COLOR DK YELLOW; URINE NITRITE NEG (NEG); URINE SPECIFIC GRAVITY 1.018 (1.000-1.030); UROBILINOGEN NEG (NEG); ZZUR CULT IF INDIC CLEAN CATCH NO
[2017-01-05 20:40] LABS: MANUAL MICROSCOPIC REQUIRED? NO; REVIEW REQ? NO
[2017-01-05 21:52] VITALS: BP 98/55; PULSE 78; TEMP 36.8; O2SAT 97
[2017-06-24] MEDS ORDERED: MULT-589 PO (09:06)
[2017-06-24] MEDS ORDERED: FLV1 PO (09:06)
[2017-06-24] MEDS ORDERED: THM100 PO (09:06)
== END 2017-01-05 21:53 | disposition short-term general hospital (02) ==
LOC: EDBD 16:03 → C.EDB 16:04
DX: R53.1 Weakness (principal); M25.512 Pain in left shoulder; W01.0XXA Fall on same level from slipping, tripping and stumbling without subsequent striking against object, initial encounter; Z86.73 Personal history of transient ischemic attack (TIA), and cerebral infarction without residual deficits; E78.5 Hyperlipidemia, unspecified; I48.91 Unspecified atrial fibrillation; I25.10 Atherosclerotic heart disease of native coronary artery without angina pectoris; I50.22 Chronic systolic (congestive) heart failure; K21.9 Gastro-esophageal reflux disease without esophagitis; F32.9 Major depressive disorder, single episode, unspecified; I25.2 Old myocardial infarction; M81.0 Age-related osteoporosis without current pathological fracture; I42.9 Cardiomyopathy, unspecified; Z87.442 Personal history of urinary calculi; Z98.890 Other specified postprocedural states; Z87.891 Personal history of nicotine dependence; Z79.82 Long term (current) use of aspirin; Z79.899 Other long term (current) drug therapy; Z88.8 Allergy status to other drugs, medicaments and biological substances; Z82.49 Family history of ischemic heart disease and other diseases of the circulatory system

== ENCOUNTER 2017-06-21 04:56 | Observation (INO) | payer OTHER ==
[~2017-06-21] VITALS: Ht 160 cm; Wt 71.8 kg
[~2017-06-21 04:56] MED LIST changes: -LCTX PO; -LISI2.5T5 PO; -METO25TA3 PO
[2017-06-21 06:03] LABS: PROTHROMBIN TIME (PATIENT) 10.6 SECONDS (9.0-12.0)
[2017-06-21 06:20] LABS: HEMATOCRIT 39.3 % (42-52); MEAN CELL VOLUME 93.1 fL (80-100); MEAN CORPUSCULAR HEMOGLOBIN 31.5 pg (25-34); MEAN CORPUSCULAR HGB CONC 33.8 g/dl (32-36); MEAN PLATELET VOLUME 12.1 fL (7.4-10.4); PLATELET COUNT 128 K/uL (130-400); PLT ESTIMATE DECREASED; RED BLOOD COUNT 4.22 M/uL (4.7-6.1); WHITE BLOOD COUNT 7.53 K/uL (4.8-10.8)
[2017-06-21 06:27] LABS: ALB/GLOB RATIO 0.7 (0.9-2); ALKALINE PHOSPHATASE 46 U/L (45-117); ALT/SGPT 19 U/L (12-78); BLOOD UREA NITROGEN 15 mg/dl (7-18); BUN/CREATININE RATIO 16.1 (10-20); CALCIUM 8.1 mg/dl (8.5-10.1); CARBON DIOXIDE 21 mmol/L (21-32); CHLORIDE 98 mmol/L (98-107); GLUCOSE 97 mg/dl (70-99); SODIUM 130 mmol/L (136-145)
--- NOTE | 2017-06-21 06:41 | EMERGENCY ROOM VISIT NOTE ---
History Report prepared by Shahid: Yrn Mcneill Under the Supervision of: Dr. Kathryn Montero M.D. First contact with patient: 06:13 Chief Complaint: CHEST PAIN Stated Complaint: CHEST PAIN/ALCOHOL INTOXICATION Nursing Triage Summary: was drinking with friend at home and smoked weed. states after smoking weed he had an episode of chest pain and SOB. denies any chest pain or SOB now. hx of CHF History of Present Illness The patient is a 62 year old male who presents to the Emergency Room with complaints of constant chest pain beginning last night. Per nursing staff, the patient states that he was drinking and smoking marijuana last night with a friend and his ex- when he began to feel symptoms of SOB and chest pain. He notes that his ex- called EMS for him to be brought into the emergency department. He reports taking an aspirin this morning prior to arrival with some relief to his symptoms. HPI limited secondary to intoxication. Source of History: patient, nursing staff History Limited By: intoxication Onset: last night Position: chest Timing: constant Associated Symptoms: + SOB Review of Systems ROS limited secondary to intoxication. Past Medical & Surgical Medical Problems: (1) Alcohol intoxication (2) CAD (coronary artery disease) (3) Cardiac defibrillator in situ (4) Cardiomyopathy (5) Carotid stenosis (6) Chest pain (7) Convulsions (8) CVA (cerebral infarction) (9) Depressive disorder (10) Dyslipidemia (11) GERD (gastroesophageal reflux disease) (12) History of alcohol abuse (13) History of atrial fibrillation (14) Idiopathic hypotension (15) Ischemic cardiomyopathy (16) Kidney stone (17) Left spastic hemiplegia (18) [place] (myocardial infarction) (19) Osteoporosis (20) PUD (peptic ulcer disease) (21) S/P ORIF (open reduction internal fixation) fracture (22) Systolic CHF, chronic Surgical Problems: (1) H/O colonoscopy with polypectomy (2) H/O esophagogastroduodenoscopy (3) S/P appendectomy (4) S/P cardiac catheterization Family History FH: heart disease FATHER MOTHER Social History Smoking Status: Never Smoker Alcohol Use: none Drug Use: marijuana Marital Status: Housing Status: lives with family Occupation Status: disabled Current/Historical Medications Scheduled Alendronate Sodium (Fosamax), 70 MG PO WK Aspirin Enteric Coated (Ecotrin Or Generic), 81 MG PO DAILY Atorvastatin (Lipitor), 40 MG PO HS Clopidogrel Bisulfate (Plavix), 75 MG PO DAILY Dexlansoprazole (Dexilant), 60 MG PO DAILY Digoxin (Digoxin), 0.125 MG PO DAILY Divalproex Sodium (Divalproex Sodium ER), 250 MG PO HS Divalproex Sodium (Divalproex Sodium ER), 1,000 MG PO HS Fluoxetine (Prozac), 40 MG PO DAILY Furosemide (Lasix), 20 MG PO Q2D Allergies Coded Allergies: Naproxen (Verified Allergy, Mild, 06/21/17) Physical Exam Vital Signs Date Time Temp Pulse Resp B/P (MAP) Pulse Ox O2 Delivery O2 Flow Rate FiO2 06/21/17 10:05 81 16 109/65 96 Room Air 06/21/17 08:33 79 16 89/62 98 Room Air 06/21/17 07:56 78 06/21/17 07:26 14 06/21/17 06:56 78 10 06/21/17 06:06 Room Air 06/21/17 06:06 97 Room Air 06/21/17 05:56 79 19 06/21/17 05:38 36.4 78 18 91/65 98 Room Air 06/21/17 05:26 78 15 06/21/17 05:09 80 06/21/17 05:02 91/ Physical Exam Vital signs reviewed. General: chronically ill appearing, in no significant distress, intoxicated. HEENT: No scleral icterus, PERRLA, neck supple. Atraumatic. Cardiovascular: Regular rate and rhythm, no extra sounds. Pulmonary: Clear to auscultation bilaterally, normal work of breathing. Abdomen: Soft, nontender, nondistended, positive bowel sounds. Musculoskeletal: Atraumatic, no peripheral edema, left hemiparesis-chronic Neurologic: Patient awake alert and oriented x 3 Skin: Warm, dry, no rash Medical Decision & Procedures ER Provider Diagnostic Interpretation: Radiology results as stated below per my review and radiologist interpretation: CHEST ONE VIEW PORTABLE FINDINGS: The heart is borderline enlarged. There is a left subclavian pacer/defibrillator present. There is no failure. There is no focal pulmonary consolidation. No pleural effusions are visualized.[ IMPRESSION: No active disease in the chest. Electronically signed by: Gt Bearden M.D. 06/21/2017 7:12 AM Laboratory Results Test 06/21/17 05:23 06/21/17 06:58 06/21/17 08:05 06/21/17 08:26 Platelet Estimate DECREASED Prothrombin Time 10.6 SECONDS (9.0-12.0) Prothromb Time International Ratio 1.0 (0.9-1.1) Activated Partial Thromboplast Time 27.1 SECONDS (21.0-31.0) Partial Thromboplastin Ratio 1.0 Total Bilirubin 0.4 mg/dl (0.2-1) Alanine Aminotransferase (ALT/SGPT) 19 U/L (12-78) Alkaline Phosphatase 46 U/L (45-117) Total Protein 7.7 gm/dl (6.4-8.2) Albumin 3.3 gm/dl (3.4-5.0) Globulin 4.4 gm/dl (2.5-4.0) Albumin/Globulin Ratio 0.7 (0.9-2) Lipase 151 U/L (73-393) Ethyl Alcohol mg/dL 229.0 mg/dl (0-3) Bedside Troponin I 0.030 ng/ml (0-0.045) Urine Color YELLOW Urine Appearance CLEAR (CLEAR) Urine pH 6.0 (4.5-7.5) Urine Specific [place] 1.013 (1.000-1.030) Urine Protein NEG (NEG) Urine Glucose (UA) NEG (NEG) Urine Ketones TRACE (NEG) Urine Occult Blood 3+ (NEG) Urine Nitrite NEG (NEG) Urine Bilirubin NEG (NEG) Urine Urobilinogen NEG (NEG) Urine Leukocyte Esterase NEG (NEG) Urine WBC (Auto) 1-5 /hpf (0-5) Urine RBC (Auto) >30 /hpf (0-4) Urine Hyaline Casts (Auto) 1-5 /lpf (0-5) Urine Epithelial Cells (Auto) 5-10 /lpf (0-5) Urine Bacteria (Auto) NEG (NEG) Urine Opiates Screen NEG (NEG) Urine Methadone, Qualitative NEG (NEG) Urine Barbiturates NEG (NEG) Urine Phencyclidine (PCP) Level NEG (NEG) Ur Amphetamine/Methamphetamine NEG (NEG) MDMA (Ecstasy) Screen NEG (NEG) Urine Benzodiazepines Screen NEG (NEG) Urine Cocaine Metabolite NEG (NEG) Urine Marijuana (THC) POS (NEG) D-Dimer 310 ug/L FEU (0-500) Aspartate Amino Transf (AST/SGOT) 17 U/L (15-37) Laboratory results per my review. Medications Administered Medications (Trade) Dose Ordered Sig/Ton Route Start Time Stop Time Status Last Admin Dose Admin Sodium Chloride 500 ml @ 999 mls/hr Q31M STAT IV 06/21/17 09:37 06/21/17 10:07 DC 06/21/17 10:05 999 MLS/HR ECG Indication: chest pain Rate (beats per minute): 80 Rhythm: normal sinus Findings: other (poor qualitiy baseline for interpretation, previous inferior and anterior septal infarct) ED Course 0618: Past medical records reviewed. The patient was evaluated in room A10. A complete history and physical examination was performed. 0937: Sodium Chloride 500 ml @ 999 mls/hr IV 0940: I reevaluated and updated the patient. 1109: Upon reevaluation, the patient is resting comfortably. I discussed laboratory and radiographic results with him. He verbalized agreement of the treatment plan. I spoke with Dr. Guzman of the [facility] Hospitalist Service. The patient will be evaluated for further management and care. Medical Decision Differential diagnosis: Etiologies such as cardiac ischemia, aortic dissection, pulmonary embolism, pneumonia, pneumothorax, musculoskeletal, infections, pericarditis, myocarditis , esophageal rupture, gastrointestinal, alcohol intoxication, as well as others were entertained. This pt was evaluated and appeared to be intoxicated but in no distress. Pt states he was drinking ETOH and smoking marijuana with a friend last evening. He has a complicated PMH and is noted to be hypotensive. I suspect after review of records that he is chronically hypotensive and the substances are not helping the matter. Pt was gently hydrated with NSS. Cardiac enzymes are negative. He continued to c/o CP, although no acute EKG changes were noted. CXR is negative for failure or infiltrate. Given the complicated case, the pt will be evaluated by the hospitalist service for further management. He is aware of the plan and agrees. Medication Reconcilliation Current Medication List: was personally reviewed by me Blood Pressure Screening Patient's blood pressure: Low blood pressure Blood pressure disposition: Referred to PCP (referred to hospitalist) Consults Time Called: 99 Consulting Physician: Dr. Guzman - [facility] Returned Call: 1000 I reviewed the patient's case with Dr. Thomas - Hospitalist, [place]. She will evaluate the patient for further management. Impression Primary Impression: Alcohol intoxication Additional Impressions: Chest pain Idiopathic hypotension Scribe Attestation The scribe's documentation has been prepared under my direction and personally reviewed by me in its entirety. I confirm that the note above accurately reflects all work, treatment, procedures, and medical decision making performed by me. Departure Information Dispostion Being Evaluated By Hospitalist Referrals Richardson Sterling M.D. (PCP) Patient Instructions My [facility] Problem Qualifiers
--- NOTE | 2017-06-21 07:14 | DIAGNOSTIC IMAGING REPORT ---
CHEST ONE VIEW PORTABLE CLINICAL HISTORY: Atypical chest pain COMPARISON STUDY: 12/03/2016 FINDINGS: The heart is borderline enlarged. There is a left subclavian pacer/defibrillator present. There is no failure. There is no focal pulmonary consolidation. No pleural effusions are visualized.[ IMPRESSION: No active disease in the chest. Electronically signed by: Gt Bearden M.D. 06/21/2017 7:12 AM Dictated Date/Time: 06/21/2017 7:12 AM
[2017-06-21 08:23] LABS: URINE APPEARANCE CLEAR (CLEAR); URINE BILIRUBIN NEG (NEG); URINE COLOR YELLOW; URINE NITRITE NEG (NEG); URINE SPECIFIC GRAVITY 1.013 (1.000-1.030); UROBILINOGEN NEG (NEG); ZZUR CULT IF INDIC CLEAN CATCH NO
[2017-06-21 08:39] LABS: MANUAL MICROSCOPIC REQUIRED? NO; REVIEW REQ? NO
[2017-06-21 08:58] LABS: POTASSIUM 3.6 mmol/L (3.5-5.1)
[2017-06-21 09:04] LABS: BENZODIAZEPINE, URINE NEG (NEG); COCAINE,URINE NEG (NEG); PHENCYCLIDINE, URINE NEG (NEG)
[2017-06-21] MEDS ORDERED: SODIUM CHLORIDE 0.9% 500ML 500 ML IV STA (09:37)
--- NOTE | 2017-06-21 11:10 | History and Physical ---
History & Physical Date & Time of Service: Jun 21, 2017 at 11:10 Chief Complaint: Chest Pain/Alcohol Intoxication Primary Care Physician: Richardson Sterling M.D. History of Present Illness Source: patient 62 yo M with past medical hx of severe ischemic cardiomyopathy EF 15-20% s/p AICD placement , CAD , HTN , CKD stage 3 , hx of prior CVA , seizure disorder presented with ED with episode of chest pain and alcohol intoxication pt is a very poor historian , mentions he occasionally drinks , denies of being a heavy drinker yesterday -he had a friends coming over and started to drink beer , thinks he drank 6-8 cans of beer also smoked Marijuana with friends , denies of using Marijuana on a regular basis later he felt substernal sharp chest pain , lasted for few minutes denies of having SOB , chest heaviness , palpitation or dizzy spell this morning his Ex was very concerned with his drinking and having chest pain called EMS in the ER pt was chest pain free, EKG showed no acute change , troponin negative ETOH level > 200 , urine tox screen positive for Marijuana Past Medical/Surgical History Medical Problems: (1) CAD (coronary artery disease) Status: Chronic (2) Cardiac defibrillator in situ Status: Chronic (3) Cardiomyopathy Status: Chronic (4) Carotid stenosis Status: Chronic (5) Convulsions Permanent Comment: EEG abnormal in 2006- potential seizure focus in R temporal region 09/10/06 Status: Chronic (6) CVA (cerebral infarction) Status: Chronic (7) Depressive disorder Status: Chronic (8) Dyslipidemia Status: Chronic (9) GERD (gastroesophageal reflux disease) Status: Chronic (10) Idiopathic hypotension Status: Chronic (11) Ischemic cardiomyopathy Status: Chronic (12) Kidney stone Status: Chronic (13) Left spastic hemiplegia Status: Chronic (14) SC (myocardial infarction) Status: Resolved (15) Osteoporosis Status: Chronic (16) PUD (peptic ulcer disease) Status: Chronic (17) S/P ORIF (open reduction internal fixation) fracture Permanent Comment: 01/07/07 ORIF left tibial plateau fracture Status: Chronic (18) Systolic CHF, chronic Status: Chronic Surgical Problems: (1) H/O colonoscopy with polypectomy Status: Chronic (2) H/O esophagogastroduodenoscopy Status: Chronic (3) S/P appendectomy Status: Chronic (4) S/P cardiac catheterization Permanent Comment: 09/21/2014- 60% prox LAD, 50% mid and distal, medical management Status: Chronic Family History FH: heart disease FATHER MOTHER Social History Smoking Status: Never Smoker Drug Use: marijuana Marital Status: Housing status: lives with family Occupational Status: disabled Immunizations History of Influenza Vaccine: N/A History of Tetanus Vaccine?: not with in the last ten yrs History of Pneumococcal: Unknown History of Hepatitis B Vaccine: No Multi-Drug Resistant Organisms History of MDRO: No Allergies Coded Allergies: Naproxen (Verified Allergy, Mild, 06/21/17) Home Medications Scheduled Alendronate Sodium (Fosamax), 70 MG PO WK Aspirin Enteric Coated (Ecotrin Or Generic), 81 MG PO DAILY Atorvastatin (Lipitor), 40 MG PO HS Clopidogrel Bisulfate (Plavix), 75 MG PO DAILY Dexlansoprazole (Dexilant), 60 MG PO DAILY Digoxin (Digoxin), 0.125 MG PO DAILY Divalproex Sodium (Divalproex Sodium ER), 250 MG PO HS Divalproex Sodium (Divalproex Sodium ER), 1,000 MG PO HS Fluoxetine (Prozac), 40 MG PO DAILY Furosemide (Lasix), 20 MG PO Q2D Review of Systems Constitutional: + weakness Cardiovascular: + chest pain Physical Exam Vital Signs Date Time Temp Pulse Resp B/P (MAP) Pulse Ox O2 Delivery O2 Flow Rate FiO2 06/21/17 10:05 81 16 109/65 96 Room Air 06/21/17 08:33 79 16 89/62 98 Room Air 06/21/17 07:56 78 06/21/17 07:26 14 06/21/17 06:56 78 10 06/21/17 06:06 Room Air 06/21/17 06:06 97 Room Air 06/21/17 05:56 79 19 06/21/17 05:38 36.4 78 18 91/65 98 Room Air 06/21/17 05:26 78 15 06/21/17 05:09 80 06/21/17 05:02 91/ General Appearance: no apparent distress Head: normocephalic, atraumatic Eyes: PERRL, EOMI Neck: supple, thyroid normal, no carotid bruits, trachea midline Respiratory/Chest: chest non-tender, lungs clear, normal breath sounds Cardiovascular: regular rate, rhythm, no edema, no gallop, no JVD, no murmur, normal peripheral pulses Abdomen/GI: normal bowel sounds, non tender, soft Extremities/Musculoskelatal: no calf tenderness, normal capillary refill, no pedal edema, normal range of motion Neurologic/Psych: alert, oriented x 3 Skin: normal color, warm/dry, no rash Lymphatic: no adenopathy Diagnostics Laboratory Results Results Past 24 Hours Test 06/21/17 05:23 06/21/17 06:58 06/21/17 08:05 06/21/17 08:26 Range/Units White Blood Count 7.53 4.8-10.8 K/uL Red Blood Count 4.22 4.7-6.1 M/uL Hemoglobin 13.3 14.0-18.0 g/dL Hematocrit 39.3 42-52 % Mean Corpuscular Volume 93.1 80-100 fL Mean Corpuscular Hemoglobin 31.5 25-34 pg Mean Corpuscular Hemoglobin Concent 33.8 32-36 g/dl RDW Standard Deviation 50.9 36.4-46.3 fL RDW Coefficient of Variation 14.9 11.5-14.5 % Platelet Count 128 130-400 K/uL Mean Platelet Volume 12.1 7.4-10.4 fL Platelet Estimate DECREASED Prothrombin Time 10.6 9.0-12.0 SECONDS Prothromb Time International Ratio 1.0 0.9-1.1 Activated Partial Thromboplast Time 27.1 21.0-31.0 SECONDS Partial Thromboplastin Ratio 1.0 Sodium Level 130 136-145 mmol/L Potassium Level 3.6 3.5-5.1 mmol/L Chloride Level 98 98-107 mmol/L Carbon Dioxide Level 21 21-32 mmol/L Anion Gap 11.0 3-11 mmol/L Blood Urea Nitrogen 15 7-18 mg/dl Creatinine 0.90 0.60-1.40 mg/dl Est Creatinine Clear Calc Drug Dose 70.4 ml/min Estimated GFR () 105.0 Estimated GFR (Non- 90.6 BUN/Creatinine Ratio 16.1 10-20 Random Glucose 97 70-99 mg/dl Calcium Level 8.1 8.5-10.1 mg/dl Total Bilirubin 0.4 0.2-1 mg/dl Aspartate Amino Transf (AST/SGOT) 17 15-37 U/L Alanine Aminotransferase (ALT/SGPT) 19 12-78 U/L Alkaline Phosphatase 46 45-117 U/L Total Creatine Kinase 406 39-308 U/L Creatine Kinase MB 1.4 0.5-3.6 ng/ml Creatine Kinase MB Ratio 0-3.0 Total Protein 7.7 6.4-8.2 gm/dl Albumin 3.3 3.4-5.0 gm/dl Globulin 4.4 2.5-4.0 gm/dl Albumin/Globulin Ratio 0.7 0.9-2 Lipase 151 73-393 U/L Ethyl Alcohol mg/dL 229.0 0-3 mg/dl Bedside Troponin I 0.030 0-0.045 ng/ml Urine Color YELLOW Urine Appearance CLEAR CLEAR Urine pH 6.0 4.5-7.5 Urine Specific Ethel 1.013 1.000-1.030 Urine Protein NEG NEG Urine Glucose (UA) NEG NEG Urine Ketones TRACE NEG Urine Occult Blood 3+ NEG Urine Nitrite NEG NEG Urine Bilirubin NEG NEG Urine Urobilinogen NEG NEG Urine Leukocyte Esterase NEG NEG Urine WBC (Auto) 1-5 0-5 /hpf Urine RBC (Auto) >30 0-4 /hpf Urine Hyaline Casts (Auto) 1-5 0-5 /lpf Urine Epithelial Cells (Auto) 5-10 0-5 /lpf Urine Bacteria (Auto) NEG NEG Urine Opiates Screen NEG NEG Urine Methadone, Qualitative NEG NEG Urine Barbiturates NEG NEG Urine Phencyclidine (PCP) Level NEG NEG Ur Amphetamine/Methamphetamine NEG NEG MDMA (Ecstasy) Screen NEG NEG Urine Benzodiazepines Screen NEG NEG Urine Cocaine Metabolite NEG NEG Urine Marijuana (THC) POS NEG CXR normal EKG Poor data quality, interpretation may be adversely affected Normal sinus rhythm Possible Inferior infarct (cited on or before 31-JAN-2014) Anterior infarct (cited on or before 31-JAN-2014) ST & T wave abnormality, consider lateral ischemia Abnormal ECG When compared with ECG of 05-JAN-2017 18:00, No significant change was found Confirmed by CHARLI ADAMS ([id number]) on 06/21/2017 1:44:08 PM Impression Assessment and Plan ALCOHOL INTOXICATION : presented with intoxicated status -ETOH level > 200 drinking beer with his friends last evening and smoked marijuana pt mentions of drinking occasionally , does not drink heavily /same with marijuana -says has not smoked for years -poor historian no evidence of ETOH withdrawal denies of any hx of withdrawal in past observe in tele started on Neurontin /Ativan as per Alcohol withdrawal protocol caution for DT cont Folic acid /Thiamin IV Banana bag not ordered for pt's severe cardiomyopathy with systolic dysfunction CHEST PAIN : had episode of chest pain yesterday while drinking sharp pain across the chest -resolved spontaneously no SOB Or palpitation currently no symptom atypical for angina EKG no new change Ist set cardiac marker negative ordered for serial cardiac markers ECHO cardiology consulted , appreciate input ISCHEMIC CARDIOMYOPATHY : hx of ischemic cardiomyopathy with EF 15-20 % as per last ECHO in 2013 s/p AICD placement recent AICD interrogation showed normal battery life , no recent shock therapy hx of CAD with cardiac cath in 2014 in [facility] showed moderate non obstructive CAD with 60% stenosis in the proximal LAD , 50% stenosis in mid LAD pt is continued with Cardiac meds monitor in tele CHRONIC THROMBOCYTOPENIA : follow CBC cont Aspirin for CAD no evidence of bleeding HX OF PRIOR CVA cont Aspirin FULL CODE DVT PROPHYLAXIS : sub q heparin DISPOSITION : expected to be discharged home when medically stable Medicine follow up with Dr Bañuelos Cardiology follow up with Dr Travis Level of Care Telemetry Resuscitation Status FULL RESUSCITATION VTE Prophylaxis VTE Risk Assessment Done? Y/N: Yes Risk Level: Moderate Given or contraindicated: Unfractionated heparin SQ Additional Copies To Blayne Helm, Richardson Noble M.D.
[2017-06-21] MEDS ORDERED: GABAPENTIN 600 MG TAB PO SCH (11:15)
[2017-06-21] MEDS ORDERED: POLYETHYLENE (MIRALAX) 17 GM PACK PO PRN (11:15)
[2017-06-21] MEDS ORDERED: ONDANSETRON INJ 2 MG/ML 2 ML VIAL IV PRN (11:15)
[2017-06-21] MEDS ORDERED: ALUMINUM/MAGNESIUM/SIMETH (MAALOX MAX) 30 ML UDC PO PRN (11:15)
[2017-06-21] MEDS ORDERED: ACETAMINOPHEN 325 MG TAB PO PRN (11:15)
[2017-06-21] MEDS ORDERED: MAGNESIUM HYDROXIDE SUSP 30 ML UDC PO PRN (11:15)
[2017-06-21] MEDS ORDERED: NITROGLYCERIN 0.4 MG SL PER TAB CHARGE SL PRN (11:15)
[2017-06-21] MEDS ORDERED: LORAZEPAM 2 MG/ML 1 ML VIAL IV PRN ×2 (11:15)
[2017-06-21 12:00] VITALS: BP 146/77; PULSE 77; TEMP 36.7; O2SAT 98; Ht 160 cm; Wt 71.8 kg
[2017-06-21 12:06] VITALS: BP 146/77; PULSE 77; TEMP 36.7; O2SAT 98
--- NOTE | 2017-06-21 12:55 | Cardiology Consultation ---
Cardiology Consultation Date of Consultation: Jun 21, 2017 History of Present Illness Cruz Henderson is a 62 year old male seen in cardiology consultation per the request of Dr. Guzman for the evaluation of chest discomfort, as well as cardiology input regarding his history of ischemic cardiomyopathy and chronic systolic heart failure. The patient's primary centerless grinder tender is Dr. Helm of our practice and the patient had most recently been seen by Jennie RESENDIZ of our practice in December 2016. Apparently the patient was in his normal state of health until yesterday. He states that around noon time he was lying in bed and he felt a brief episode of chest discomfort. The patient is somewhat of a poor historian. When I try to get more detail about the duration of the discomfort he stated "not too long". The discomfort apparently resolved spontaneously. He was feeling better last night and he enjoyed 6 cans of beer with his friend and then smoked marijuana. He states that he does not drink on a daily basis at this was somewhat unusual activity for him. He states he only smokes marijuana once in a while. The patient presented to the emergency room for further evaluation. He was hypotensive with systolic blood pressure readings initially in the 80 mmHg range on arrival, he received 1 L of fluid intravenously. IV medications have since been discontinued. The patient has been admitted to the PCU for telemetry monitoring and during my interview with him in room 233 he was completely asymptomatic and without complaint. History Past Medical History: 1. See history of ischemic cardiomyopathy, severe left ventricular systolic dysfunction with ejection fraction in the range of 15-20% on past studies, chronic systolic heart failure. He apparently had an anterior wall myocardial infarction several years ago in the setting of sepsis syndrome and has a large LAD territory wall motion abnormality with anterior wall and apical involvement. His most recent cardiac catheterization took place as part of an evaluation by the advanced heart failure team at [facility] [place]. [id number] heart catheterization including coronary angiography performed 09/21/49 to [facility] revealed moderate nonobstructive CAD with a 60% stenosis in the proximal LAD 50% mid LAD.: To 50 % stenosis. Right coronary artery with luminal irregularities. The right sided cardiac pressures were mildly elevated with mean pulmonary artery pressure 22 mmHg, and wedge 13 mmHg, LVEDP of 14 mmHg, and cardiac output of 4.1. 2. Past stroke due to right carotid occlusion with resultant left upper extremity hemiplegia 3. History of single-chamber AICD placement for primary prevention of sudden cardiac , most recent interrogation on 06/01/17 revealing stable function 4. Chronic cytopenia 5. Chart history of recurrent idiopathic hypotension 6. History of seizures in the past Past Surgical History: 1. Cardiac catheterization 2. AICD placement 2013 3. History of endoscopy and colonoscopy 4. Left total knee replacement Social History: Patient is a former smoker He states he typically drinks an occasional beer beverage or liquor beverage, but drank to excess last evening Occasional marijuana use Family History: History of ischemic heart disease with myocardial infarction in both parents Review Of Systems See above for pertinent positives & negatives. A total of 10 systems reviewed and were otherwise negative. Allergies Coded Allergies: Naproxen (Verified Allergy, Mild, 06/21/17) Medications Reported Home Medications Medications Dose Route/Sig Max Daily Dose Days Date Category Dose Instructions Digoxin 0.125 Mg Tab 0.125 Mg PO DAILY 09/19/16 Reported Divalproex Sodium ER (Divalproex Sodium) 500 Mg Tabcr 1,000 Mg PO HS 03/03/16 Reported Dexilant (Dexlansoprazole) 60 Mg Cap 60 Mg PO DAILY 03/03/16 Reported Divalproex Sodium ER (Divalproex Sodium) 250 Mg Tabcr 250 Mg PO HS 03/03/16 Reported Lipitor (Atorvastatin Calcium) 40 Mg Tab 40 Mg PO HS 04/02/14 Reported Fosamax (Alendronate Sodium) 70 Mg Tab 70 Mg PO WK 02/21/14 Reported TAKE THIS MEDICATION EVERY THURSDAY Lasix (Furosemide) 20 Mg Tab 20 Mg PO Q2D 01/31/14 Reported Plavix (Clopidogrel Bisulfate) 75 Mg Tab 75 Mg PO DAILY 01/31/14 Reported Ecotrin Or Generic (Aspirin) 81 Mg Tab 81 Mg PO DAILY 04/09/12 Reported Prozac (Fluoxetine HCl) 40 Mg Cap 40 Mg PO DAILY 01/18/07 Reported Physical Exam Vital Signs (Last 8hrs): Last 8 Hrs Date Time Temp Pulse Resp B/P (MAP) Pulse Ox O2 Delivery O2 Flow Rate FiO2 06/21/17 12:06 36.7 77 18 146/77 (100) 98 06/21/17 11:34 78 20 89/52 97 Room Air 06/21/17 10:05 81 16 109/65 96 Room Air 06/21/17 08:33 79 16 89/62 98 Room Air 06/21/17 07:56 78 06/21/17 07:26 14 06/21/17 06:56 78 10 06/21/17 06:06 Room Air 06/21/17 06:06 97 Room Air 06/21/17 05:56 79 19 06/21/17 05:38 36.4 78 18 91/65 98 Room Air 06/21/17 05:26 78 15 06/21/17 05:09 80 06/21/17 05:02 /65 General Appearance: Alert and Oriented x3. NAD. Head: Normocephalic Atraumatic. Eyes: PERRLA, EOMI, conjunctiva and sclera clear Neck: Supple. No carotid bruits noted. No JVD. No HJD. Respiratory: Breath sounds clear to auscultation bilaterally. No w/r/r. Cardiovascular: Reg rate and rhythm. S1 and S2 noted. No murmurs, rubs, gallops. PMI non displace. Abdomen: Normal bowel sounds, soft nontender. no abdominal bruits. Extremities: No edema, no clubbing or cyanosis. distal pulses 2/4 bilaterally. Neuro: Left upper extremity hemiplegia, patient follows commands. AICD pocket noted in the left infraclavicular position is clean dry and intact without skin breakdown. Data Last Resulted 06/21/17 05:23 Last Resulted 06/21/17 05:23 06/21/17 08:26 Past 24 Hours Test 06/21/17 05:23 06/21/17 08:26 Range/Units Creatine Kinase MB 1.4 0.5-3.6 ng/ml Creatine Kinase MB Ratio 0-3.0 Prothromb Time International Ratio 1.0 0.9-1.1 Prothrombin Time 10.6 9.0-12.0 SECONDS Total Creatine Kinase 406 H 39-308 U/L A call level drawn on presentation to the emergency room on 5:23 AM was 229 mg/ dL Toxicology screen was positive for THC EKG on presentation revealed sinus rhythm with age-indeterminate anterior infarction pattern with Q waves noted in the anteroseptal and anterior leads, and nonspecific lateral ST changes, unchanged compared to November, Assessment & Plan Impression: 62-year-old male 1. Chest discomfort, somewhat atypical for angina, with patient having presented in the setting of recent alcohol/THC intoxication 2. History of underlying ischemic cardiomyopathy, severe LV systolic dysfunction, chronic systolic heart failure, seemingly well compensated at present Plan: The patient received a bolus of IV fluids on presentation due to relative low blood pressure systolic blood pressure readings in the high 80 to low 90 mmHg range when he presented. His most recent blood pressure is 146/77 when he arrived to the floor. Review of his chart, it appears that the low blood pressure is not a new problem for him. He has been admitted in the past for recurrent falls, and had required rehabilitation for this in the past. His initial troponin was negative. His EKG shows chronic changes without acute abnormality. Agree with admitting him for observation on the telemetry unit. Will trend cardiac enzymes. Update echocardiogram. Continue chronic cardiac medications. Darius Lopez DO, FACC, FACOI Associate Dietetic Assistant [facility] [place], [place] [facility]
[2017-06-21] MEDS ORDERED: GABAPENTIN 1200MG LOADING DOSE PO SCH (13:00)
[2017-06-21] MEDS: THIAMINE HCL INJ 100 MG in SYRINGE 9 ML IV SCH (13:29)
[2017-06-21] MEDS ORDERED: IV FLUIDS COMPLETED PRN (13:30)
[2017-06-21 15:25] VITALS: BP 100/65; PULSE 76; TEMP 36.8; O2SAT 95
[2017-06-21 16:00] VITALS: O2SAT 95
[2017-06-21] MEDS: DIGOXIN 0.125 MG TAB PO SCH (16:22)
[2017-06-21] MEDS: GABAPENTIN 600MG Q6H DOSE PO SCH ×2 (18:22→23:25)
[2017-06-21 18:45] LABS: CKMB/CK RATIO 0.4 (0-3.0)
[2017-06-21 20:03] VITALS: BP 104/63; PULSE 78; TEMP 37.3; O2SAT 96
[2017-06-21] MEDS: DIVALPROEX 500 MG EXTENDED RELEASE TAB PO SCH (20:05)
[2017-06-21] MEDS: ATORVASTATIN 40 MG TAB PO SCH (20:05)
[2017-06-21] MEDS: DIVALPROEX 250 MG EXTENDED REL TAB PO SCH (20:05)
[2017-06-21 23:13] VITALS: BP 91/61; PULSE 92; TEMP 36.9; O2SAT 94
[2017-06-22] VITALS (7 sets, daily range): BP systolic 91–104; BP diastolic 55–66; PULSE 65–84; TEMP 36.6–37; O2SAT 94–98
[2017-06-22 01:23] LABS: CKMB/CK RATIO 0.4 (0-3.0)
[2017-06-22 06:11] LABS: HEMATOCRIT 36.2 % (42-52); MEAN CELL VOLUME 93.3 fL (80-100); MEAN CORPUSCULAR HEMOGLOBIN 30.4 pg (25-34); MEAN CORPUSCULAR HGB CONC 32.6 g/dl (32-36); MEAN PLATELET VOLUME 11.9 fL (7.4-10.4); PLATELET COUNT 125 K/uL (130-400); RED BLOOD COUNT 3.88 M/uL (4.7-6.1); WHITE BLOOD COUNT 6.47 K/uL (4.8-10.8)
[2017-06-22 06:42] LABS: BUN/CREATININE RATIO 16.5 (10-20); CALCIUM 8.2 mg/dl (8.5-10.1); CHOLESTEROL/HDL RATIO 2.7; CREATININE 1.05 mg/dl (0.60-1.40); MAGNESIUM 2.3 mg/dl (1.8-2.4); POTASSIUM 4.3 mmol/L (3.5-5.1)
[2017-06-22] MEDS: CLOPIDOGREL BISULFATE 75 MG TAB PO SCH (07:49)
[2017-06-22] MEDS: ASPIRIN 81 MG ECTAB PO SCH (07:49)
[2017-06-22] MEDS: FLUOXETINE HCL 20 MG CAP PO SCH (07:49)
[2017-06-22] MEDS: PANTOprazole SOD 40 MG TAB PO SCH (07:50)
[2017-06-22] MEDS: GABAPENTIN 600MG Q8H DOSE PO SCH ×3 (07:50→23:42)
[2017-06-22] MEDS: FUROSEMIDE 20 MG TAB PO SCH (07:50)
--- NOTE | 2017-06-22 08:17 | ECHOCARDIOGRAM REPORT ---
*NOTICE TO RECEIVING REPUBLICAN AGENCY This information is strictly Confidential and protected under [place] law. [place] law prohibits you from making any further disclosure of this information unless further disclosure is expressly permitted by the written consent of the person to whom it pertains or is authorized by law. A general authorization for the release of medical or other information is not sufficient for this purpose. Hospital accepts no responsibility if the information is made available to any other person, INCLUDING THE PATIENT. Interpretation Summary * Name: MARTHA WELCH Study Date: 06/21/2017 01:50 PM BP: 109/65 mmHg * Patient Location: C.2T\S\S233\S\1 HR: 76 * : 1955 (M/d/yyyy) Gender: Male Height: 64 in * Age: 62 yrs Ethnicity: CA Weight: 149 lb * Ordering Physician: Xenia Guzman * Referring Physician: Self, Referred * Performed By: Lalit Chaudhary RDCS * * Reason For Study: Chets pain * BSA: 1.7 m2 * The study was technically adequate. * -- Conclusions -- * There is a large sized apical, septal, anteroseptal, anterior, inferior, and lateral wall motion abnormality with hypokinesis to dyskinesis of the segments. * The left ventricular myocardial thickness is normal in segments with normal wall motion. * There is diffuse septal wall , anterior wall , apical wall thinning in a territory of LAD scar. * Left ventricular systolic function is severely reduced. * The qualitative LV ejection =20% * There is trace mitral regurgitation. * Grade I diastolic dysfunction, (abnormal relaxation pattern). Procedure Details * A complete two-dimensional transthoracic echocardiogram was performed (2D, M-mode, Doppler and color flow Doppler). * The study was technically difficult. * A contrast injection of Definity was performed to improve assessment of LV function. * Contrast was injected into an intravenous site in the right arm. * One vial of Definity ultrasound contrast was diluted in normal saline to a total volume of 10 ml. A total of '5' ml of solution was administered during imaging. * Lot # [id number] of Definity utilized for procedure. * Expiration date . * The attending nurse who injected the contrast agent was WOO Oreilly. Left Ventricle * The left ventricle is normal in size. * There is no LV mural thrombus. * The left ventricular myocardial thickness is normal in segments with normal wall motion. There is diffuse septal wall , anterior wall , apical wall thinning in a territory of LAD scar. * Left ventricular systolic function is severely reduced. * The qualitatative LV ejection =20% * There is a large sized apical, septal, anteroseptal, anterior, inferior, and lateral wall motion abnormality with hypokinesis to dyskinesis of the segments. Right Ventricle * The right ventricle is normal size. * The right ventricular systolic function is normal as assessed by tricuspid annular plane systolic excursion (TAPSE) (normal >1.5 cm). Atria * The left atrial size is normal. * Right atrial size is normal. * There is no evidence of atrial septal defect, but resolution does not allow assessment for a patent foramen ovale. Mitral Valve * The mitral valve is normal. * There is no mitral valve stenosis. * There is trace mitral regurgitation. Tricuspid Valve * The tricuspid valve is normal. * There is no tricuspid stenosis. * Significant tricuspid regurgitation is absent. Aortic Valve * The aortic valve is trileaflet. * Aortic stenosis is absent. * There is no significant aortic regurgitation. Pulmonic Valve * The pulmonary valve is not well seen, but the Doppler examination is normal without significant regurgitation or stenosis. Great Vessels * The aortic root and proximal ascending aorta are normal sized. Pericardium/Pleural * There is no pericardial effusion. Great Vessels * Normal inferior vena cava diameter and respiratory variation suggests normal central venous pressure. Left Ventricular Diastolic Function * Grade I diastolic dysfunction, (abnormal relaxation pattern). MMode 2D Measurements and Calculations IVSd 0.96 cm IVSs 1.1 cm LVIDd 5.1 cm LVIDs 3.8 cm LVPWd 0.81 cm LVPWs 1.1 cm IVS/LVPW 1.2 FS 26.2 % EDV(Teich) 123.0 ml ESV(Teich) 60.1 ml EF(Teich) 51.1 % EDV(cubed) 131.5 ml ESV(cubed) 52.8 ml EF(cubed) 59.8 % % IVS thick 18.0 % % LVPW thick 37.3 % LV mass(C)d 159.4 grams LV mass(C)dI 92.3 grams/m\S\2 LV mass(C)s 136.3 grams LV mass(C)sI 79.0 grams/m\S\2 SV(Teich) 62.9 ml SI(Teich) 36.4 ml/m\S\2 SV(cubed) 78.7 ml SI(cubed) 45.6 ml/m\S\2 Ao root diam 3.0 cm Ao root area 7.1 cm\S\2 LA dimension 3.8 cm asc Aorta Diam 2.9 cm LA/Ao 1.3 LVOT diam 1.8 cm LVOT area 2.7 cm\S\2 LVAd ap4 26.2 cm\S\2 LVLd ap4 7.4 cm EDV(MOD-sp4) 76.0 ml LVAs ap4 21.7 cm\S\2 LVLs ap4 7.3 cm ESV(MOD-sp4) 50.1 ml EF(MOD-sp4) 34.1 % LVAd ap2 20.8 cm\S\2 LVLd ap2 6.5 cm EDV(MOD-sp2) 53.9 ml LVAs ap2 16.8 cm\S\2 LVLs ap2 6.0 cm ESV(MOD-sp2) 37.5 ml EF(MOD-sp2) 30.4 % SV(MOD-sp4) 25.9 ml SI(MOD-sp4) 15.0 ml/m\S\2 SV(MOD-sp2) 16.4 ml SI(MOD-sp2) 9.5 ml/m\S\2 Doppler Measurements and Calculations MV E max gisell 85.4 cm/sec MV A max gisell 93.6 cm/sec MV E/A 0.91 MV dec time 0.21 sec Ao V2 max 141.6 cm/sec Ao max PG 8.0 mmHg Ao max PG (full) 4.6 mmHg YUDELKA(V,A) 1.7 cm\S\2 YUDELKA(V,D) 1.7 cm\S\2 LV V1 max PG 3.4 mmHg LV V1 max 92.5 cm/sec PA V2 max 111.5 cm/sec PA max PG 5.0 mmHg PA acc slope 377.8 cm/sec\S\2 PA acc time 0.12 sec TR max gisell 247.2 cm/sec PA pr(Accel) 23.5 mmHg
--- NOTE | 2017-06-22 09:14 | PROGRESS NOTE ---
DATE: 06/22/2017 SUBJECTIVE: The patient was seen and examined at the bedside. No recurrent chest pain overnight. Cardiac enzymes are negative. His repeat resting 2D transthoracic echo demonstrates mild improvement in left ventricular systolic function. There were no sustained dysrhythmias on telemetry. Currently, the patient is resting comfortably. He tolerated his a.m. meal. He reports drinking 6 beers on the night prior to admission as well as smoking marijuana. He woke in the a.m. with a feeling of chest discomfort and heaviness which lasted approximately 30 minutes. There is no associated shortness of breath. He denies any recent orthopnea, PND, weight gain, or edema. He has been compliant with medications. Offers no complaints this morning. REVIEW OF SYSTEMS: The pertinent positives noted above per HPI, otherwise, a 5-system including the cardiovascular, pulmonary, endocrinologic, neurologic, gastroenterologic systems are negative. LABORATORY DATA: Sodium is 145, potassium 4.3, chloride is 112, CO2 is 27, BUN 17, creatinine 1.05. Cardiac enzymes are negative x3 sets. White blood cell count 6.47, hemoglobin is 11.8. His platelet count is 125. The patient's alcohol level on admission was 229.0. His urine drug screen was positive for marijuana. Chest x-ray on admission demonstrates no active disease. PHYSICAL EXAMINATION: VITAL SIGNS: Temperature is 37 degrees centigrade, pulse 75 beats per minute and regular, respiratory rate is 18 breaths per minute, blood pressure 95/55. SAO2 is 97% on room air. GENERAL: NAD, awake, alert and oriented x3. THROAT: His mucous membranes are moist. There is no scleral icterus. Conjunctivae are pink. NECK: Supple. There is no JVD or HJR. No carotid bruit. HEART: Regular with a normal S1 and S2. Occasional ectopy noted. No murmur, rub, or gallop noted. ABDOMEN: Soft, nontender. No rebound or guarding. Normal bowel sounds. EXTREMITIES: Warm and dry. There is no clubbing, cyanosis, or edema. NEUROLOGIC: Demonstrates a left-sided hemiplegia. FINAL IMPRESSION: 1. A 62-year-old male admitted with atypical chest discomfort. No objective evidence of acute coronary syndrome. 2. Chronic compensated systolic heart failure status post automated implantable cardioverter defibrillator. 3. Chronic hypotension related to cardiomyopathy and antihypertensive medications. 4. Alcohol and marijuana intoxication. PLAN AND RECOMMENDATIONS: I had a long discussion with the patient regarding his need to avoid excessive alcohol intake as well as avoid any future marijuana use. I discussed this test results including cardiac enzymes and echocardiography. There is no evidence of acute coronary syndrome. I recommend he continue his current outpatient medications. I will arrange for cardiology followup in 2-4 weeks. He will continue his current diuretic protocol as well as weighing himself on a daily basis. All questions were answered to his satisfaction. We will sign off at this time.
[2017-06-22] MEDS: THIAMINE HCL INJ 100 MG in SYRINGE 9 ML IV SCH (11:10)
[2017-06-22] MEDS: DIGOXIN 0.125 MG TAB PO SCH (15:15)
--- NOTE | 2017-06-22 17:42 | Progress Note ---
Internal Med Progress Note Date of Service: Jun 22, 2017. Provider Documentation: SUBJECTIVE: no complain of chest pain or SOB has some tremor on out stretch hands denies of feeling anxious OBJECTIVE: Vital Signs-as noted below Exam: General-no sign of distress Eyes-sclera non icteric ENT-NAd Neck-no JVD Lungs-CTA ,no rales or wheeze Heart-regular S1/S2 Abdomen-soft , non tender Extremities-no lower ext edema Neuro-AAO x 3 no focal deficit Lab data as noted below. ASSESSMENT & PLAN: ALCOHOL INTOXICATION : no sign of withdrawal so far cont on tele with ETOH withdrawal protocol presented with intoxicated status -ETOH level > 200 drinking beer with his friends last evening and smoked marijuana pt mentions of drinking occasionally , does not drink heavily /same with marijuana -says has not smoked for years -poor historian on Neurontin /Ativan as per Alcohol withdrawal protocol caution for DT cont Folic acid /Thiamin IV Banana bag not ordered for pt's severe cardiomyopathy with systolic dysfunction CHEST PAIN : atypical for angina no further episode EKG no new change cardiac markers negative ECHO -unchanged for prior cardiology consulted , appreciate input -no active cardiac issue cont management for ETOH abuse cont Cardiac meds ISCHEMIC CARDIOMYOPATHY : hx of ischemic cardiomyopathy with EF 15-20 % as per last ECHO in 2013 repeat ECHO shows improvement of EF s/p AICD placement recent AICD interrogation showed normal battery life , no recent shock therapy hx of CAD with cardiac cath in 2014 in [facility] showed moderate non obstructive CAD with 60% stenosis in the proximal LAD , 50% stenosis in mid LAD no active cardiac issue pt is continued with Cardiac meds monitor in tele CHRONIC THROMBOCYTOPENIA : follow CBC cont Aspirin for CAD no evidence of bleeding HX OF PRIOR CVA cont Aspirin FULL CODE DVT PROPHYLAXIS : scd and teds DISPOSITION : PT/OT eval requested may need rehab social service consulted for discharge planning Medicine follow up with Dr Bañuelos Cardiology follow up with Dr Travis Vital Signs: Date Time Temp Pulse Resp B/P (MAP) Pulse Ox O2 Delivery O2 Flow Rate FiO2 06/23/17 12:00 Room Air 06/23/17 11:15 36.8 76 16 108/66 (80) 95 06/23/17 08:00 Room Air 06/23/17 07:26 36.6 66 18 96/54 (68) 96 06/23/17 04:00 96 Room Air 06/23/17 03:39 36.7 69 20 116/71 (86) 96 06/23/17 00:44 77 16 101/64 (76) 98 Room Air 06/22/17 23:59 36.9 84 16 96/62 (73) 98 Room Air 06/22/17 23:59 98 Room Air 06/22/17 20:00 97 Room Air 06/22/17 18:56 36.6 72 16 95/57 (70) 97 Room Air 06/22/17 16:00 Room Air 06/22/17 15:15 69 06/22/17 15:06 36.6 65 16 104/66 (79) 97 Room Air Lab Results: Results Past 24 Hours Test 06/23/17 01:20 Range/Units White Blood Count 5.05 4.8-10.8 K/uL Red Blood Count 3.70 4.7-6.1 M/uL Hemoglobin 11.4 14.0-18.0 g/dL Hematocrit 34.2 42-52 % Mean Corpuscular Volume 92.4 80-100 fL Mean Corpuscular Hemoglobin 30.8 25-34 pg Mean Corpuscular Hemoglobin Concent 33.3 32-36 g/dl Platelet Count 113 130-400 K/uL Mean Platelet Volume 11.3 7.4-10.4 fL Neutrophils (%) (Auto) 47.4 % Lymphocytes (%) (Auto) 34.9 % Monocytes (%) (Auto) 13.9 % Eosinophils (%) (Auto) 3.2 % Basophils (%) (Auto) 0.2 % Neutrophils # (Auto) 2.40 1.4-6.5 K/uL Lymphocytes # (Auto) 1.76 1.2-3.4 K/uL Monocytes # (Auto) 0.70 0.11-0.59 K/uL Eosinophils # (Auto) 0.16 0-0.5 K/uL Basophils # (Auto) 0.01 0-0.2 K/uL RDW Standard Deviation 53.3 36.4-46.3 fL RDW Coefficient of Variation 15.7 11.5-14.5 % Immature Granulocyte % (Auto) 0.4 % Immature Granulocyte # (Auto) 0.02 0.00-0.02 K/uL Activated Partial Thromboplast Time 26.9 21.0-31.0 SECONDS Partial Thromboplastin Ratio 1.0 Sodium Level 142 136-145 mmol/L Potassium Level 4.1 3.5-5.1 mmol/L Chloride Level 109 98-107 mmol/L Carbon Dioxide Level 26 21-32 mmol/L Anion Gap 7.0 3-11 mmol/L Blood Urea Nitrogen 13 7-18 mg/dl Creatinine 0.91 0.60-1.40 mg/dl Est Creatinine Clear Calc Drug Dose 73.0 ml/min Estimated GFR () 103.6 Estimated GFR (Non- 89.4 BUN/Creatinine Ratio 14.2 10-20 Random Glucose 122 70-99 mg/dl Lactic Acid Level 1.1 0.4-2.0 mmol/L Calcium Level 8.4 8.5-10.1 mg/dl Magnesium Level 2.1 1.8-2.4 mg/dl Total Bilirubin 0.3 0.2-1 mg/dl Aspartate Amino Transf (AST/SGOT) 15 15-37 U/L Alanine Aminotransferase (ALT/SGPT) 17 12-78 U/L Alkaline Phosphatase 44 45-117 U/L Troponin I < 0.015 0-0.045 ng/ml Total Protein 6.4 6.4-8.2 gm/dl Albumin 2.9 3.4-5.0 gm/dl Globulin 3.5 2.5-4.0 gm/dl Albumin/Globulin Ratio 0.8 0.9-2 Lipase 198 73-393 U/L
[2017-06-22] MEDS: DIVALPROEX 250 MG EXTENDED REL TAB PO SCH (20:38)
[2017-06-22] MEDS: ATORVASTATIN 40 MG TAB PO SCH (20:38)
[2017-06-22] MEDS: DIVALPROEX 500 MG EXTENDED RELEASE TAB PO SCH (20:38)
[2017-06-23] VITALS (10 sets, daily range): BP systolic 96–116; BP diastolic 54–71; PULSE 64–77; TEMP 36.5–37; O2SAT 95–98
[2017-06-23] MEDS ORDERED: OXYCODONE/ACETAMINOPHEN 5-325 TAB PO PRN (01:00)
[2017-06-23 01:27] LABS: BASO % 0.2 %; BASO ABS # 0.01 K/uL (0-0.2); COMPLETE YES; EOS % 3.2 %; HEMATOCRIT 34.2 % (42-52); IG% 0.4 %; LYMPH % 34.9 %; LYMPH ABS # 1.76 K/uL (1.2-3.4); MEAN CELL VOLUME 92.4 fL (80-100); MEAN CORPUSCULAR HEMOGLOBIN 30.8 pg (25-34); MEAN CORPUSCULAR HGB CONC 33.3 g/dl (32-36); MEAN PLATELET VOLUME 11.3 fL (7.4-10.4); MONO % 13.9 %; NEUT % 47.4 %; PLATELET COUNT 113 K/uL (130-400); WHITE BLOOD COUNT 5.05 K/uL (4.8-10.8)
[2017-06-23 01:45] LABS: ALT/SGPT 17 U/L (12-78); AST/SGOT 15 U/L (15-37); BLOOD UREA NITROGEN 13 mg/dl (7-18); BUN/CREATININE RATIO 14.2 (10-20); CALCIUM 8.4 mg/dl (8.5-10.1); CARBON DIOXIDE 26 mmol/L (21-32); CHLORIDE 109 mmol/L (98-107); CREATININE 0.91 mg/dl (0.60-1.40); GLUCOSE 122 mg/dl (70-99); MAGNESIUM 2.1 mg/dl (1.8-2.4); POTASSIUM 4.1 mmol/L (3.5-5.1); SODIUM 142 mmol/L (136-145)
[2017-06-23 01:59] LABS: ALB/GLOB RATIO 0.8 (0.9-2); ALKALINE PHOSPHATASE 44 U/L (45-117)
[2017-06-23] MEDS: PANTOprazole SOD 40 MG TAB PO SCH (08:20)
[2017-06-23] MEDS: CLOPIDOGREL BISULFATE 75 MG TAB PO SCH (08:20)
[2017-06-23] MEDS: ASPIRIN 81 MG ECTAB PO SCH (08:20)
[2017-06-23] MEDS: FLUOXETINE HCL 20 MG CAP PO SCH (08:21)
--- NOTE | 2017-06-23 10:33 | Progress Note ---
Subjective Date of Service: Jun 23, 2017. Subjective Pt evaluation today including: conversation w/ patient, physical exam, lab review, review of studies, review of inpatient medication list Saw/examined the patient in room 233 He states he's doing fine Denies anxiousness, denies nausea/vomiting, denies fevers/chills States he feels weak and is eager to go to inpatient rehab to get his strength up Problem List Medical Problems: (1) Blunt abdominal trauma Status: Acute (2) Contusion of left hand Status: Acute (3) Contusion of left shoulder Status: Acute (4) Contusion of left wrist Status: Acute (5) Contusion of lower back Status: Acute (6) Fall Status: Acute (7) Frequent falls Status: Acute (8) Generalized weakness Status: Acute (9) History of CVA with residual deficit Status: Acute (10) Hypoxia Status: Acute (11) Hypoxia Status: Acute (12) Idiopathic hypotension Status: Chronic (13) Lactic acidosis Status: Acute (14) Left rib fracture Status: Acute (15) Multiple falls Status: Acute (16) Pneumothorax, left Status: Acute (17) Shoulder contusion Status: Acute (18) Vomiting Status: Acute Review of Systems Constitutional: + weakness, No fever, No chills Abdomen: No nausea, No vomiting Male : No dysuria, No urinary frequency, No incontinence Psychiatric: + substance abuse (alcohol), No depression symptoms, No anxiety Heme: No abnormal bleeding/bruising Medications Current Inpatient Medications Medications (Trade) Dose Ordered Sig/Ton Route Start Time Stop Time Status Last Admin Dose Admin Aspirin (Ecotrin Tab) 81 mg DAILY PO 06/22/17 09:00 07/22/17 08:59 06/23/17 08:20 81 MG Atorvastatin Calcium (Lipitor Tab) 40 mg HS PO 06/21/17 21:00 07/21/17 20:59 06/22/17 20:38 40 MG Clopidogrel Bisulfate (plAVix TAB) 75 mg DAILY PO 06/22/17 09:00 07/22/17 08:59 06/23/17 08:20 75 MG Digoxin (Lanoxin Tab) 0.125 mg DAILY@1600 PO 06/21/17 16:00 07/21/17 15:59 06/22/17 15:15 0.125 MG Divalproex Sodium (Depakote Extended Rel Tab) 250 mg HS PO 06/21/17 21:00 07/21/17 20:59 06/22/17 20:38 250 MG Divalproex Sodium (Depakote Extended Rel Tab) 1,000 mg HS PO 06/21/17 21:00 07/21/17 20:59 06/22/17 20:38 1,000 MG Fluoxetine HCl (Prozac Cap) 40 mg DAILY PO 06/22/17 09:00 07/22/17 08:59 06/23/17 08:21 40 MG Furosemide (Lasix Tab) 20 mg Q2D@0900 PO 06/22/17 09:00 07/22/17 08:59 06/22/17 07:50 20 MG Pantoprazole Sodium (Protonix Tab) 40 mg DAILY PO 06/22/17 09:00 07/22/17 08:59 06/23/17 08:20 40 MG Thiamine HCl 100 mg/Syringe 10 ml @ 2 mls/min Q24H IV 06/21/17 12:00 07/21/17 11:59 06/22/17 11:10 2 MLS/MIN Lorazepam (Ativan Inj) 1 mg ONE PRN IV 06/21/17 11:15 Lorazepam (Ativan Inj) PRN Dosing -Active Protocol Q1H PRN IV 06/21/17 11:15 07/21/17 11:14 Acetaminophen (Tylenol Tab) 650 mg Q4H PRN PO 06/21/17 11:15 07/21/17 11:14 06/23/17 00:56 650 MG Al Hydrox/Mg Hydrox/Simethicone (Maalox Max Susp) 15 ml Q4H PRN PO 06/21/17 11:15 07/21/17 11:14 Magnesium Hydroxide (Milk Of Magnesia Susp) 30 ml Q12H PRN PO 06/21/17 11:15 07/21/17 11:14 Ondansetron HCl (Zofran Inj) 4 mg Q6H PRN IV 06/21/17 11:15 07/21/17 11:14 Nitroglycerin (Nitrostat Tab) 0.4 mg UD PRN SL 06/21/17 11:15 07/21/17 11:14 Polyethylene (Miralax Powder Packet) 17 gm DAILY PRN PO 06/21/17 11:15 07/21/17 11:14 Gabapentin (Neurontin Tab) 600 mg Q12H PO 06/23/17 12:00 06/24/17 00:01 Gabapentin (Neurontin Tab) 600 mg Q24H PO 06/25/17 00:00 06/25/17 00:01 Miscellaneous (Iv Fluids Completed) 1 ea PRN PRN N/A 06/21/17 13:30 06/21/18 13:29 Folic Acid (Folvite Tab) 1 mg QAM PO 06/22/17 09:00 07/22/17 08:59 06/23/17 08:20 1 MG Oxycodone/ Acetaminophen (Percocet 5-325mg Tab) 1 tab Q6H PRN PO 06/23/17 01:00 07/07/17 00:59 Objective Vital Signs Date Time Temp Pulse Resp B/P (MAP) Pulse Ox O2 Delivery O2 Flow Rate FiO2 06/23/17 08:00 Room Air 06/23/17 07:26 36.6 66 18 96/54 (68) 96 06/23/17 04:00 96 Room Air 06/23/17 03:39 36.7 69 20 116/71 (86) 96 06/23/17 00:44 77 16 101/64 (76) 98 Room Air 06/22/17 23:59 36.9 84 16 96/62 (73) 98 Room Air 06/22/17 23:59 98 Room Air 06/22/17 20:00 97 Room Air 06/22/17 18:56 36.6 72 16 95/57 (70) 97 Room Air 06/22/17 16:00 Room Air 06/22/17 15:15 69 06/22/17 15:06 36.6 65 16 104/66 (79) 97 Room Air 06/22/17 12:00 Room Air 06/22/17 11:08 36.7 69 18 91/59 (70) 96 Room Air Physical Exam General Appearance: no apparent distress Respiratory/Chest: lungs clear, normal breath sounds, no respiratory distress, no accessory muscle use Cardiovascular: regular rate, rhythm, no edema, no murmur Abdomen: normal bowel sounds, non tender, soft Extremities: normal inspection, no pedal edema Neurologic/Psychiatric: alert, normal mood/affect, + pertinent finding ( tremulousness at baseline) Laboratory Results Last 24 Hours Test 10/24/17 01:20 White Blood Count 5.05 K/uL Red Blood Count 3.70 M/uL Hemoglobin 11.4 g/dL Hematocrit 34.2 % Mean Corpuscular Volume 92.4 fL Mean Corpuscular Hemoglobin 30.8 pg Mean Corpuscular Hemoglobin Concent 33.3 g/dl Platelet Count 113 K/uL Mean Platelet Volume 11.3 fL Neutrophils (%) (Auto) 47.4 % Lymphocytes (%) (Auto) 34.9 % Monocytes (%) (Auto) 13.9 % Eosinophils (%) (Auto) 3.2 % Basophils (%) (Auto) 0.2 % Neutrophils # (Auto) 2.40 K/uL Lymphocytes # (Auto) 1.76 K/uL Monocytes # (Auto) 0.70 K/uL Eosinophils # (Auto) 0.16 K/uL Basophils # (Auto) 0.01 K/uL RDW Standard Deviation 53.3 fL RDW Coefficient of Variation 15.7 % Immature Granulocyte % (Auto) 0.4 % Immature Granulocyte # (Auto) 0.02 K/uL Activated Partial Thromboplast Time 26.9 SECONDS Partial Thromboplastin Ratio 1.0 Sodium Level 142 mmol/L Potassium Level 4.1 mmol/L Chloride Level 109 mmol/L Carbon Dioxide Level 26 mmol/L Anion Gap 7.0 mmol/L Blood Urea Nitrogen 13 mg/dl Creatinine 0.91 mg/dl Est Creatinine Clear Calc Drug Dose 73.0 ml/min Estimated GFR () 103.6 Estimated GFR (Non- 89.4 BUN/Creatinine Ratio 14.2 Random Glucose 122 mg/dl Lactic Acid Level 1.1 mmol/L Calcium Level 8.4 mg/dl Magnesium Level 2.1 mg/dl Total Bilirubin 0.3 mg/dl Aspartate Amino Transf (AST/SGOT) 15 U/L Alanine Aminotransferase (ALT/SGPT) 17 U/L Alkaline Phosphatase 44 U/L Troponin I < 0.015 ng/ml Total Protein 6.4 gm/dl Albumin 2.9 gm/dl Globulin 3.5 gm/dl Albumin/Globulin Ratio 0.8 Lipase 198 U/L Assessment and Plan This is a 62 year old male with a PMH of ischemic cardiomyopathy and systolic heart failure with EF ~ 15-20% s/p AICD placement, CAD, HTN, CKD stage 3, Hx. of CVA, Hx. of seizure disorder presented with chest pain as well as alcohol intoxication and marijuana use Chest Pain unlikely ACS related chest pain echo shows the LVEF of around 20% no change or significant findings on the EKG cardiac enzymes negative x3 symptoms have now resolved cardiology has signed off - appreciate input No further management at this time; continue aspirin, statin, Plavix no b-kris due to hypotension episodes EtOH intoxication no sign of withdrawal so far; mild tremulousness cont on tele with ETOH withdrawal protocol presented with intoxicated status - ETOH level > 200 drinking beer with his friends last evening and smoked marijuana Gabapentin protocol for EtOH withdrawal caution for DT cont. Folic Acid/Thiamine Severe Ischemic Cardiomyopathy, s/p AICD placement Echo shows LVEF around 20% recent AICD interrogation showed normal battery life, no recent shock therapy hx of CAD with cardiac cath in 2014 in [facility] showed moderate non obstructive CAD with 60% stenosis in the proximal LAD , 50% stenosis in mid LAD no active cardiac issue continue Lasix every other day continue Digoxin monitor in tele Seizure Disorder last seizure in 2008 continue Depakote Hx. of CVA continue aspirin Chronic Thrombocytopenia platelet count stable, no evidence of bleeding continue aspirin DVT ppx SCDs FULL CODE will need rehab at [facility]
[2017-06-23] MEDS: GABAPENTIN 600MG Q12H DOSE PO SCH ×2 (12:40→23:54)
[2017-06-23] MEDS: THIAMINE HCL INJ 100 MG in SYRINGE 9 ML IV SCH (12:40)
[2017-06-23] MEDS: DIGOXIN 0.125 MG TAB PO SCH (16:14)
[2017-06-23] MEDS: ATORVASTATIN 40 MG TAB PO SCH (20:56)
[2017-06-23] MEDS: DIVALPROEX 250 MG EXTENDED REL TAB PO SCH (20:57)
[2017-06-23] MEDS: DIVALPROEX 500 MG EXTENDED RELEASE TAB PO SCH (20:57)
[2017-06-24 04:00] VITALS: O2SAT 96
[2017-06-24 04:02] VITALS: BP 107/67; PULSE 68; TEMP 36.5; O2SAT 96
[2017-06-24 06:48] LABS: MEAN CELL VOLUME 94.5 fL (80-100); MEAN CORPUSCULAR HEMOGLOBIN 31.2 pg (25-34); MEAN CORPUSCULAR HGB CONC 33.1 g/dl (32-36); PLATELET COUNT 118 K/uL (130-400); RED BLOOD COUNT 3.81 M/uL (4.7-6.1); WHITE BLOOD COUNT 5.25 K/uL (4.8-10.8)
[2017-06-24 06:51] LABS: PLT ESTIMATE DECREASED
[2017-06-24 06:55] LABS: BUN/CREATININE RATIO 12.9 (10-20); CALCIUM 8.8 mg/dl (8.5-10.1); CREATININE 0.97 mg/dl (0.60-1.40); POTASSIUM 4.3 mmol/L (3.5-5.1)
[2017-06-24 07:31] VITALS: BP 97/63; PULSE 74; TEMP 36.8; O2SAT 96
[2017-06-24] MEDS: CLOPIDOGREL BISULFATE 75 MG TAB PO SCH (07:52)
[2017-06-24] MEDS: FLUOXETINE HCL 20 MG CAP PO SCH (07:52)
[2017-06-24] MEDS: ASPIRIN 81 MG ECTAB PO SCH (07:52)
[2017-06-24] MEDS: PANTOprazole SOD 40 MG TAB PO SCH (07:52)
[2017-06-24] MEDS: FUROSEMIDE 20 MG TAB PO SCH (07:52)
--- NOTE | 2017-06-24 09:03 | Progress Note ---
Subjective Date of Service: Jun 24, 2017. Subjective Pt evaluation today including: conversation w/ patient, physical exam, lab review, review of studies, review of inpatient medication list Saw/examined the patient in room 233 No problems/issues to note; very eager to get out of the hospital Still shaky at baseline, but this is chronic as per patient and Denies chest pain/shortness of breath Problem List Medical Problems: (1) Blunt abdominal trauma Status: Acute (2) Contusion of left hand Status: Acute (3) Contusion of left shoulder Status: Acute (4) Contusion of left wrist Status: Acute (5) Contusion of lower back Status: Acute (6) Fall Status: Acute (7) Frequent falls Status: Acute (8) Generalized weakness Status: Acute (9) History of CVA with residual deficit Status: Acute (10) Hypoxia Status: Acute (11) Hypoxia Status: Acute (12) Idiopathic hypotension Status: Chronic (13) Lactic acidosis Status: Acute (14) Left rib fracture Status: Acute (15) Multiple falls Status: Acute (16) Pneumothorax, left Status: Acute (17) Shoulder contusion Status: Acute (18) Vomiting Status: Acute Review of Systems Respiratory: No shortness of breath, No dyspnea on exertion Cardiac: No chest pain, No edema, No palpitations Medications Current Inpatient Medications Medications (Trade) Dose Ordered Sig/Ton Route Start Time Stop Time Status Last Admin Dose Admin Aspirin (Ecotrin Tab) 81 mg DAILY PO 06/22/17 09:00 07/22/17 08:59 06/24/17 07:52 81 MG Atorvastatin Calcium (Lipitor Tab) 40 mg HS PO 06/21/17 21:00 07/21/17 20:59 06/23/17 20:56 40 MG Clopidogrel Bisulfate (plAVix TAB) 75 mg DAILY PO 06/22/17 09:00 07/22/17 08:59 06/24/17 07:52 75 MG Digoxin (Lanoxin Tab) 0.125 mg DAILY@1600 PO 06/21/17 16:00 07/21/17 15:59 06/23/17 16:14 0.125 MG Divalproex Sodium (Depakote Extended Rel Tab) 250 mg HS PO 06/21/17 21:00 07/21/17 20:59 06/23/17 20:57 250 MG Divalproex Sodium (Depakote Extended Rel Tab) 1,000 mg HS PO 06/21/17 21:00 07/21/17 20:59 06/23/17 20:57 1,000 MG Fluoxetine HCl (Prozac Cap) 40 mg DAILY PO 06/22/17 09:00 07/22/17 08:59 06/24/17 07:52 40 MG Furosemide (Lasix Tab) 20 mg Q2D@0900 PO 06/22/17 09:00 07/22/17 08:59 06/24/17 07:52 20 MG Pantoprazole Sodium (Protonix Tab) 40 mg DAILY PO 06/22/17 09:00 07/22/17 08:59 06/24/17 07:52 40 MG Thiamine HCl 100 mg/Syringe 10 ml @ 2 mls/min Q24H IV 06/21/17 12:00 07/21/17 11:59 06/23/17 12:40 2 MLS/MIN Lorazepam (Ativan Inj) 1 mg ONE PRN IV 06/21/17 11:15 Lorazepam (Ativan Inj) PRN Dosing -Active Protocol Q1H PRN IV 06/21/17 11:15 07/21/17 11:14 Acetaminophen (Tylenol Tab) 650 mg Q4H PRN PO 06/21/17 11:15 07/21/17 11:14 06/23/17 00:56 650 MG Al Hydrox/Mg Hydrox/Simethicone (Maalox Max Susp) 15 ml Q4H PRN PO 06/21/17 11:15 07/21/17 11:14 Magnesium Hydroxide (Milk Of Magnesia Susp) 30 ml Q12H PRN PO 06/21/17 11:15 07/21/17 11:14 Ondansetron HCl (Zofran Inj) 4 mg Q6H PRN IV 06/21/17 11:15 07/21/17 11:14 Nitroglycerin (Nitrostat Tab) 0.4 mg UD PRN SL 06/21/17 11:15 07/21/17 11:14 Polyethylene (Miralax Powder Packet) 17 gm DAILY PRN PO 06/21/17 11:15 07/21/17 11:14 Gabapentin (Neurontin Tab) 600 mg Q24H PO 06/25/17 00:00 06/25/17 00:01 Miscellaneous (Iv Fluids Completed) 1 ea PRN PRN N/A 06/21/17 13:30 06/21/18 13:29 Folic Acid (Folvite Tab) 1 mg QAM PO 06/22/17 09:00 07/22/17 08:59 06/24/17 07:52 1 MG Oxycodone/ Acetaminophen (Percocet 5-325mg Tab) 1 tab Q6H PRN PO 06/23/17 01:00 07/07/17 00:59 Objective Vital Signs Date Time Temp Pulse Resp B/P (MAP) Pulse Ox O2 Delivery O2 Flow Rate FiO2 06/24/17 07:31 36.8 74 18 97/63 (74) 96 06/24/17 04:02 36.5 68 18 107/67 (80) 96 Room Air 06/24/17 04:00 96 Room Air 06/23/17 23:59 96 Room Air 06/23/17 23:49 36.5 69 19 104/66 (79) 96 Room Air 06/23/17 20:00 Room Air 06/23/17 20:00 37.0 72 18 112/68 (83) 95 Room Air 06/23/17 18:53 36.7 72 18 105/68 (80) 95 Room Air 06/23/17 16:14 65 06/23/17 16:00 Room Air 06/23/17 15:02 37.0 64 16 97/62 (74) 95 Room Air 06/23/17 12:00 Room Air 06/23/17 11:15 36.8 76 16 108/66 (80) 95 Physical Exam General Appearance: no apparent distress, + pertinent finding (baseline tremulousness) Respiratory/Chest: no respiratory distress, no accessory muscle use Cardiovascular: regular rate, rhythm, no edema, no murmur Laboratory Results Last 24 Hours Test 06/24/17 05:55 White Blood Count 5.25 K/uL Red Blood Count 3.81 M/uL Hemoglobin 11.9 g/dL Hematocrit 36.0 % Mean Corpuscular Volume 94.5 fL Mean Corpuscular Hemoglobin 31.2 pg Mean Corpuscular Hemoglobin Concent 33.1 g/dl RDW Standard Deviation 53.2 fL RDW Coefficient of Variation 15.4 % Platelet Count 118 K/uL Mean Platelet Volume 12.0 fL Platelet Estimate DECREASED Sodium Level 144 mmol/L Potassium Level 4.3 mmol/L Chloride Level 110 mmol/L Carbon Dioxide Level 30 mmol/L Anion Gap 4.0 mmol/L Blood Urea Nitrogen 13 mg/dl Creatinine 0.97 mg/dl Est Creatinine Clear Calc Drug Dose 69.3 ml/min Estimated GFR () 95.9 Estimated GFR (Non- 82.7 BUN/Creatinine Ratio 12.9 Random Glucose 85 mg/dl Calcium Level 8.8 mg/dl Magnesium Level 2.0 mg/dl Assessment and Plan This is a 62 year old male with a PMH of ischemic cardiomyopathy and systolic heart failure with EF ~ 15-20% s/p AICD placement, CAD, HTN, CKD stage 3, Hx. of CVA, Hx. of seizure disorder presented with chest pain as well as alcohol intoxication and marijuana use Chest Pain - resolved unlikely ACS related chest pain echo shows the LVEF of around 20% no change or significant findings on the EKG cardiac enzymes negative x3 symptoms have now resolved cardiology has signed off - appreciate input No further management at this time; continue aspirin, statin, Plavix no b-kris due to hypotension episodes EtOH intoxication 06/24 cont. Gabapentin protocol cont. folic acid/thiamine 06/23 no sign of withdrawal so far; mild tremulousness cont on tele with ETOH withdrawal protocol presented with intoxicated status - ETOH level > 200 drinking beer with his friends last evening and smoked marijuana Gabapentin protocol for EtOH withdrawal caution for DT cont. Folic Acid/Thiamine Severe Ischemic Cardiomyopathy, s/p AICD placement Echo shows LVEF around 20% recent AICD interrogation showed normal battery life, no recent shock therapy hx of CAD with cardiac cath in 2014 in [place] showed moderate non obstructive CAD with 60% stenosis in the proximal LAD , 50% stenosis in mid LAD no active cardiac issue continue Lasix every other day continue Digoxin monitor in tele Seizure Disorder last seizure in 2008 continue Depakote Hx. of CVA continue aspirin Chronic Thrombocytopenia platelet count stable, no evidence of bleeding continue aspirin DVT ppx SCDs FULL CODE will need rehab at [facility]
[2017-06-24] MEDS ORDERED: THM100 PO (09:06)
[2017-06-24] MEDS ORDERED: MULT-589 PO (09:06)
[2017-06-24] MEDS ORDERED: FLV1 PO (09:06)
--- NOTE | 2017-06-24 09:16 | Discharge Instructions ---
Discharge Instructions Date of Service Jun 24, 2017. Admission Reason for Admission: Chest Pain, Alcohol Intoxication Discharge Discharge Diagnosis / Problem: Chest Pain, Alcohol Intoxication, Chronic Tremor Discharge Goals Goal(s): Decrease discomfort, Improve function, Diagnostic testing, Therapeutic intervention Activity Recommendations Activity Level: Up Ad [place] Therapies: Physical Therapy, Occupational Therapy . Additional Information Patient informed of condition: Yes Advance Directives: No DNR: No Level of Care: Acute Rehab Communicable Disease: No Prognosis: Stable [place] Catheter: No Instructions / Follow-Up Instructions / Follow-Up Please follow-up with your primary care doctor after being discharged from rehab Follow-up with neurology due to your tremors Current Hospital Diet Patient's current hospital diet: AHA Diet (Heart Healthy), Low Sodium Diet (2gm Na) Discharge Diet Recommended Diet: AHA Diet (Heart Healthy), Low Sodium Diet (2gm Na) Fluid Restriction: 2000 ml (8 cups) Pending Studies Studies pending at discharge: no Laboratory Results Lipid Panel Test 06/22/17 05:32 Range/Units Triglycerides Level 65 0-150 mg/dl Cholesterol Level 101 0-200 mg/dl HDL Cholesterol 38 mg/dl Cholesterol/HDL Ratio 2.7 LDL Cholesterol, Calculated 50 mg/dl Medical Emergencies . Who to Call and When: Medical Emergencies: If at any time you feel your situation is an emergency, please call 911 immediately. . Non-Emergent Contact Non-Emergency issues call your: Primary Care Provider . . "Provider Documentation" section prepared by Tyrese iMllan. . Core Measure Problem Core Measures: None
--- NOTE | 2017-06-24 09:29 | Discharge Summary ---
Discharge Summary Date of Service Jun 24, 2017. Discharge Summary Admission Date: Jun 21, 2017 at 10:40 Discharge Date: Jun 24, 2017 Discharge Disposition: Rehab Principal Diagnosis: Alcohol Intoxication Marijuana Use Chest Pain - possibly due to alcohol/marijuana use Chronic baseline tremor Chronic Thrombocytopenia Medication Reconciliation New Medications: Multivitamins (Daily Jeannette) 1 Tab Tab 1 TAB PO DAILY for 30 Days, #30 TABS Thiamine HCl (Vitamin B-1) 100 Mg Tab 100 MG PO DAILY for 30 Days, #30 TABS Folic Acid (Folic Acid) 1 Mg Tab 1 MG PO QAM for 30 Days, #30 TAB Continued Medications: Alendronate Sodium (Fosamax) 70 Mg Tab 70 MG PO WK, TAB TAKE THIS MEDICATION EVERY THURSDAY Aspirin Enteric Coated (Ecotrin Or Generic) 81 Mg Tab 81 MG PO DAILY, TAB Atorvastatin (Lipitor) 40 Mg Tab 40 MG PO HS, TAB Clopidogrel Bisulfate (Plavix) 75 Mg Tab 75 MG PO DAILY, TAB Dexlansoprazole (Dexilant) 60 Mg Cap 60 MG PO DAILY Digoxin (Digoxin) 0.125 Mg Tab 0.125 MG PO DAILY Divalproex Sodium (Divalproex Sodium ER) 250 Mg Tabcr 250 MG PO HS Divalproex Sodium (Divalproex Sodium ER) 500 Mg Tabcr 1000 MG PO HS Fluoxetine (Prozac) 40 Mg Cap 40 MG PO DAILY Furosemide (Lasix) 20 Mg Tab 20 MG PO Q2D, TAB Admission Information HPI (per Admitting provider): 62 yo M with past medical hx of severe ischemic cardiomyopathy EF 15-20% s/p AICD placement , CAD , HTN , CKD stage 3 , hx of prior CVA , seizure disorder presented with ED with episode of chest pain and alcohol intoxication pt is a very poor historian , mentions he occasionally drinks , denies of being a heavy drinker yesterday -he had a friends coming over and started to drink beer , thinks he drank 6-8 cans of beer also smoked Marijuana with friends , denies of using Marijuana on a regular basis later he felt substernal sharp chest pain , lasted for few minutes denies of having SOB , chest heaviness , palpitation or dizzy spell this morning his Ex was very concerned with his drinking and having chest pain called EMS in the ER pt was chest pain free, EKG showed no acute change , troponin negative ETOH level > 200 , urine tox screen positive for Marijuana Physical Exam (per Admitting): General Appearance: no apparent distress Head: normocephalic, atraumatic Eyes: PERRL, EOMI Neck: supple, thyroid normal, no carotid bruits, trachea midline Respiratory/Chest: chest non-tender, lungs clear, normal breath sounds Cardiovascular: regular rate, rhythm, no edema, no gallop, no JVD, no murmur , normal peripheral pulses Abdomen/GI: normal bowel sounds, non tender, soft Extremities/Musculoskelatal: no calf tenderness, normal capillary refill, no pedal edema, normal range of motion Neurologic/Psych: alert, oriented x 3 Skin: normal color, warm/dry, no rash Lymphatic: no adenopathy Hospital Course This is a 62 year old male with a PMH of ischemic cardiomyopathy and systolic heart failure with EF ~ 15-20% s/p AICD placement, CAD, HTN, CKD stage 3, Hx. of CVA, Hx. of seizure disorder presented with chest pain as well as alcohol intoxication and marijuana use Chest Pain - resolved unlikely ACS related chest pain echo shows the LVEF of around 20% no change or significant findings on the EKG cardiac enzymes negative x3 symptoms have now resolved cardiology has signed off - appreciate input No further management at this time; continue aspirin, statin, Plavix no b-kris due to hypotension episodes EtOH intoxication 06/24 cont. Gabapentin protocol cont. folic acid/thiamine 06/23 no sign of withdrawal so far; mild tremulousness cont on tele with ETOH withdrawal protocol presented with intoxicated status - ETOH level > 200 drinking beer with his friends last evening and smoked marijuana Gabapentin protocol for EtOH withdrawal caution for DT cont. Folic Acid/Thiamine Severe Ischemic Cardiomyopathy, s/p AICD placement Echo shows LVEF around 20% recent AICD interrogation showed normal battery life, no recent shock therapy hx of CAD with cardiac cath in 2014 [facility] showed moderate non obstructive CAD with 60% stenosis in the proximal LAD , 50% stenosis in mid LAD no active cardiac issue continue Lasix every other day continue Digoxin monitor in tele Seizure Disorder last seizure in 2008 continue Depakote Hx. of CVA continue aspirin Chronic Thrombocytopenia platelet count stable, no evidence of bleeding continue aspirin DVT ppx SCDs FULL CODE will need rehab at [facility] Total time spent on discharge = 40 minutes This includes examination of the patient, discharge planning, medication reconciliation, and communication with other providers. Discharge Instructions Please follow-up with your primary care doctor after being discharged from rehab Follow-up with neurology due to your tremors
[2017-06-24 10:38] VITALS: BP 95/56; PULSE 69; TEMP 36.6; O2SAT 95
[2017-06-24] MEDS: THIAMINE HCL INJ 100 MG in SYRINGE 9 ML IV SCH (11:12)
[2017-06-24 12:49] VITALS: BP 95/56; PULSE 69; TEMP 36.6; O2SAT 95
[2017-06-25] MEDS ORDERED: GABAPENTIN 600MG X1 DOSE PO SCH
== END 2017-06-24 13:45 ==
LOC: EDBD 04:56 → C.EDA 04:57 → C.2T 10:40 → ENRESERV 11:15
PROVIDERS: ADMIT Hospitalist; ATTEND Family Medicine
DX: F10.129 Alcohol abuse with intoxication, unspecified (principal); R07.9 Chest pain, unspecified; I95.0 Idiopathic hypotension; I25.5 Ischemic cardiomyopathy; R25.1 Tremor, unspecified; D69.6 Thrombocytopenia, unspecified; I25.2 Old myocardial infarction; R56.9 Unspecified convulsions; F32.9 Major depressive disorder, single episode, unspecified; E78.5 Hyperlipidemia, unspecified; K21.9 Gastro-esophageal reflux disease without esophagitis; G81.10 Spastic hemiplegia affecting unspecified side; K27.7 Chronic peptic ulcer, site unspecified, without hemorrhage or perforation; M81.0 Age-related osteoporosis without current pathological fracture; I25.10 Atherosclerotic heart disease of native coronary artery without angina pectoris; I12.9 Hypertensive chronic kidney disease with stage 1 through stage 4 chronic kidney disease, or unspecified chronic kidney disease; I50.89 Other heart failure; N18.3 Chronic kidney disease, stage 3 (moderate); Z79.82 Long term (current) use of aspirin; Z87.81 Personal history of (healed) traumatic fracture; Z82.49 Family history of ischemic heart disease and other diseases of the circulatory system; Z87.442 Personal history of urinary calculi; Z86.73 Personal history of transient ischemic attack (TIA), and cerebral infarction without residual deficits; Z90.89 Acquired absence of other organs; Z95.0 Presence of cardiac pacemaker; Z79.02 Long term (current) use of antithrombotics/antiplatelets

== ENCOUNTER 2017-11-13 17:17 | Emergency (ER) | payer OTHER ==
[~2017-11-13] VITALS: Ht 162.6 cm; Wt 77.7 kg
[~2017-11-13 17:17] MED LIST changes: +FLV1 PO; +MULT-589 PO; +THM100 PO
[2017-11-13 17:23] VITALS: TEMP 36.8; Ht 162.6 cm; Wt 77.7 kg
--- NOTE | 2017-11-13 18:11 | EMERGENCY ROOM VISIT NOTE ---
History Report prepared by Shahid: Sam Anderson Under the Supervision of: Dr. Kimber Blakely D.O. First contact with patient: 17:22 Chief Complaint: FALL Stated Complaint: FALL, THUMB PAIN, HIT HEAD History of Present Illness The patient is a 62 year old male who presents to the Emergency Room with complaints of a sudden fall occurring prior to arrival. The patient states that he was on his commode, and he fell backwards and hit his head on a metal railing. He states that he is having pain in the back of his head and his right thumb. The patient denies any loss of consciousness, neck pain, back pain, chest pain, abdominal pain, dizziness, light headedness, nausea, blurred vision , and hip pain. The patient states that he has not been sick recently, and he states that he thinks that he fell due to his low blood pressure when he first stands up the causes him to be dizzy. The patient states that he has a pacemaker /defibrillator in place after having an NM. He also has a history of a stroke and has a left foot drop from it. The patient states that he is not on any blood thinners other than aspirin daily, and he states that he has been eating and drinking normally. Patient states this has happened before. Patient states he was previously instructed to change positions very slowly. Patient has nurses and aides that come and help him at home. Patient denies feeling ill earlier in the day or prior to this. Source of History: patient Onset: prior to arrival Position: other (global) Quality: other (fall) Timing: other (sudden) Associated Symptoms: No LOC, No neck pain, No chest pain, No nausea, No abdominal pain, No back pain Note: Associated symptoms: head pain and right thumb pain. Review of Systems See HPI for pertinent positives & negatives. A total of 10 systems reviewed and were otherwise negative. Past Medical & Surgical Medical Problems: (1) Alcohol intoxication (2) CAD (coronary artery disease) (3) Cardiac defibrillator in situ (4) Cardiomyopathy (5) Carotid stenosis (6) Chest pain (7) Convulsions (8) CVA (cerebral infarction) (9) Depressive disorder (10) Dyslipidemia (11) GERD (gastroesophageal reflux disease) (12) History of alcohol abuse (13) History of atrial fibrillation (14) Idiopathic hypotension (15) Ischemic cardiomyopathy (16) Kidney stone (17) Left spastic hemiplegia (18) NM (myocardial infarction) (19) Osteoporosis (20) PUD (peptic ulcer disease) (21) S/P ORIF (open reduction internal fixation) fracture (22) Systolic CHF, chronic Surgical Problems: (1) H/O colonoscopy with polypectomy (2) H/O esophagogastroduodenoscopy (3) S/P appendectomy (4) S/P cardiac catheterization Family History FH: heart disease FATHER MOTHER Social History Smoking Status: Former Smoker Alcohol Use: none Drug Use: marijuana Marital Status: Housing Status: lives with family Occupation Status: disabled Current/Historical Medications Scheduled Alendronate Sodium (Fosamax), 70 MG PO WK Aspirin Enteric Coated (Ecotrin Or Generic), 81 MG PO DAILY Atorvastatin (Lipitor), 40 MG PO HS Clopidogrel Bisulfate (Plavix), 75 MG PO DAILY Dexlansoprazole (Dexilant), 60 MG PO DAILY Digoxin (Digoxin), 0.125 MG PO DAILY Divalproex Sodium (Divalproex Sodium ER), 250 MG PO HS Divalproex Sodium (Divalproex Sodium ER), 1,000 MG PO HS Fluoxetine (Prozac), 40 MG PO DAILY Folic Acid (Folvite), 1 MG PO DAILY Furosemide (Lasix), 20 MG PO Q2D Multivitamins (Daily Jeannette), 1 TAB PO DAILY Thiamine Hcl (Vitamin B-1), 100 MG PO DAILY Allergies Coded Allergies: Naproxen (Verified Allergy, Mild, 11/13/17) Physical Exam Vital Signs Date Time Temp Pulse Resp B/P (MAP) Pulse Ox O2 Delivery O2 Flow Rate FiO2 11/13/17 20:25 78 20 124/73 98 Room Air 11/13/17 19:00 64 18 101/63 98 Room Air 66 107/69 75 108/59 11/13/17 19:00 66 18 107/69 98 Room Air 11/13/17 17:23 36.8 67 20 94/47 94 Room Air Physical Exam GENERAL: alert, well appearing, well nourished, no distress, non-toxic HEAD: normal cephalic, atraumatic EYE EXAM: normal conjunctiva, PERRL and EOM's grossly intact OROPHARYNX: no exudate, no erythema, lips, buccal mucosa, and tongue normal and mucous membranes are moist NECK: supple, no nuchal rigidity, no adenopathy, non-tender CHEST: He has a well healed and obvious pacemaker/defibrillator in the left anterior superior chest wall. No chest wall crepitus. No obvious contusions. LUNGS: clear to auscultation. Normal chest wall mechanics HEART: no murmurs, S1 normal and S2 normal ABDOMEN: abdomen soft, non-tender, normo-active bowel sounds, no masses, no rebound or guarding. PELVIS: stable to compression anteriorly and posteriorly BACK: Back is symmetrical on inspection and there is no deformity, no midline tenderness, no CVA tenderness. UPPER EXTREMITIES: Upper extremities are grossly normal. Full range of motion, normal pulses, no deformities and no evidence of trauma. LOWER EXTREMITIES: Brace on the left lower extremity. No swelling. Good pulses NEURO EXAM: Normal sensorium, cranial nerves II-XII grossly intact, normal speech, no gross weakness of arms, no gross weakness of legs. GCS: 15. Medical Decision & Procedures ER Provider Diagnostic Interpretation: Radiology results have been interpreted by the radiologist and reviewed by me. HEAD WITHOUT CONTRAST (CT) CT DOSE: 1721.95 mGy.cm HISTORY: Mental status change trauma TECHNIQUE: Multiaxial CT images of the head were performed without the use of intravenous contrast. A dose lowering technique was utilized adhering to the principles of ALARA. Comparison: 01/05/2017 Findings: The paranasal sinuses and mastoid air cells are clear. The calvarium and skull base are intact. The ventricles and sulci are within normal limits. There is no mass, hematoma, midline shift, or acute infarct. Several old infarcts previously described are unchanged. No new or interval finding. Impression: No acute intracranial abnormality. Several old unchanged infarcts. No acute process. The above report was generated using voice recognition software. It may contain grammatical, syntax or spelling errors. Electronically signed by: Minesh Andersen M.D. 11/13/2017 6:40 PM Dictated Date/Time: 11/13/2017 6:39 PM CERVICAL SPINE W/O CT DOSE: HISTORY: Trauma. Pain. trauma TECHNIQUE: Multiaxial CT images of the cervical spine were performed and reformatted in the sagittal and coronal plane without the use of contrast. A dose lowering technique was utilized adhering to the principles of ALARA. COMPARISON: None. FINDINGS: No fractures. No subluxation. Prevertebral soft tissues and the C1-C2 interval are intact. No pneumothorax. Moderate degenerative change throughout. IMPRESSION: 1. No acute process. 2. Moderate degenerative change. The above report was generated using voice recognition software. It may contain grammatical, syntax or spelling errors. Electronically signed by: Minesh Andersen M.D. 11/13/2017 6:42 PM Dictated Date/Time: 11/13/2017 6:41 PM Laboratory Results Test 11/13/17 18:18 Bedside Hemoglobin 13.3 g/dl (14.0-18.0) Bedside Hematocrit 39 % (42-52) Bedside Sodium 140 mEq/L (135-144) Bedside Potassium 4.3 mEq/L (3.3-5.0) Bedside Chloride 103 mEq/L (101-112) Bedside Total CO2 29 mEq/l (24-31) Anion Gap 14.0 mmol/L (16-25) Bedside Blood Urea Nitrogen 25 mg/dl (7-18) Bedside Creatinine 1.0 mg/dl (0.6-1.3) Bedside Glucose (other) 102 mg/dl (70-99) Bedside Ionized Calcium (Kanika) 1.21 mmol/l (1.12-1.32) Laboratory results per my review. ECG Per My Interpretation Indication: other (fall) Rate (beats per minute): 67 Rhythm: sinus rhythm Findings: T-wave inversion (V2, V4, and V5), other (Normal axis. Normal intervals. Erratic baseline ) Comparison ECG Date: 06/23/17 Change: no significant change ED Course 1722: The patient was evaluated in room B9. A complete history and physical exam was performed. 1916: Upon reevaluation, the patient is feeling better. I discussed the findings and the treatment plan with the patient. He verbalizes agreement and understanding. He was discharged home. Medical Decision Differential diagnosis: Etiologies such as fracture, dislocation, intra-abdominal, pneumothorax, intrathoracic , intracranial, neurologic, as well as other traumatic pathologies were entertained. Patient well-appearing here, tolerating p.o., and encouraged to make sure he is drinking plenty of water to avoid orthostatic dizziness. Labs and imaging reassuring. I have a low suspicion for any occult traumatic injury. Patient aware of her results and agreeable with plan. Patient to return home and continue her usual medications as well as aids. Discussed with patient symptoms to watch and return for, he verbalized understanding and was agreeable with plan. Head Trauma GCS Score: 15 Medication Reconcilliation Current Medication List: was personally reviewed by me Blood Pressure Screening Patient's blood pressure: Low blood pressure Impression Primary Impression: Fall Additional Impression: Closed head injury Scribe Attestation The scribe's documentation has been prepared under my direction and personally reviewed by me in its entirety. I confirm that the note above accurately reflects all work, treatment, procedures, and medical decision making performed by me. Departure Information Dispostion Home / Self-Care Referrals Richardson Sterling M.D. (PCP) Forms HOME CARE DOCUMENTATION FORM, IMPORTANT VISIT INFORMATION Patient Instructions My [facility] Additional Instructions Please call follow-up with your family doctor as a precaution. Please take your medications as prescribed. Please make sure you are eating and drinking at regular intervals and stay well-hydrated. These be cautious and use her assistive devices to help prevent any additional falls. Please change positions and get up slowly to prevent any dizziness/lightheadedness. If you have any worsening headaches, vision changes, dizziness, difficulty walking, recurrent fall, nausea or vomiting, chest pain, trouble breathing, you have any other new concerns, please return the emergency room. Problem Qualifiers Primary Impression: Fall Encounter type: initial encounter Qualified Codes: W19.XXXA - Unspecified fall, initial encounter Additional Impression: Closed head injury Encounter type: initial encounter Qualified Codes: S09.90XA - Unspecified injury of head, initial encounter
[2017-11-13 18:31] LABS: ISTAT IONIZED CALCIUM 1.21 mmol/l (1.12-1.32); ISTAT POTASSIUM 4.3 mEq/L (3.3-5.0)
--- NOTE | 2017-11-13 18:42 | DIAGNOSTIC IMAGING REPORT ---
HEAD WITHOUT CONTRAST (CT) CT DOSE: 1721.95 mGy.cm HISTORY: Mental status change trauma TECHNIQUE: Multiaxial CT images of the head were performed without the use of intravenous contrast. A dose lowering technique was utilized adhering to the principles of ALARA. Comparison: 01/05/2017 Findings: The paranasal sinuses and mastoid air cells are clear. The calvarium and skull base are intact. The ventricles and sulci are within normal limits. There is no mass, hematoma, midline shift, or acute infarct. Several old infarcts previously described are unchanged. No new or interval finding. Impression: No acute intracranial abnormality. Several old unchanged infarcts. No acute process. The above report was generated using voice recognition software. It may contain grammatical, syntax or spelling errors. Electronically signed by: Minesh Andersen M.D. 11/13/2017 6:40 PM Dictated Date/Time: 11/13/2017 6:39 PM
--- NOTE | 2017-11-13 18:44 | DIAGNOSTIC IMAGING REPORT ---
CERVICAL SPINE W/O CT DOSE: HISTORY: Trauma. Pain. trauma TECHNIQUE: Multiaxial CT images of the cervical spine were performed and reformatted in the sagittal and coronal plane without the use of contrast. A dose lowering technique was utilized adhering to the principles of ALARA. COMPARISON: None. FINDINGS: No fractures. No subluxation. Prevertebral soft tissues and the C1-C2 interval are intact. No pneumothorax. Moderate degenerative change throughout. IMPRESSION: 1. No acute process. 2. Moderate degenerative change. The above report was generated using voice recognition software. It may contain grammatical, syntax or spelling errors. Electronically signed by: Minesh Andersen M.D. 11/13/2017 6:42 PM Dictated Date/Time: 11/13/2017 6:41 PM
[2017-11-13] MEDS ORDERED: MULT-589 PO (19:03)
[2017-11-13] MEDS ORDERED: FOLI1TAB8 PO (19:03)
[2017-11-13] MEDS ORDERED: THIA100T11 PO (19:03)
[2017-11-13 20:25] VITALS: BP 124/73; PULSE 78; O2SAT 98
== END 2017-11-13 20:35 | disposition home or self-care (01) ==
LOC: EDBD 17:17 → C.EDB 17:20
DX: S09.90XA Unspecified injury of head, initial encounter (principal); W18.12XA Fall from or off toilet with subsequent striking against object, initial encounter; I69.359 Hemiplegia and hemiparesis following cerebral infarction affecting unspecified side; I25.2 Old myocardial infarction; I25.10 Atherosclerotic heart disease of native coronary artery without angina pectoris; Z79.82 Long term (current) use of aspirin; Z95.810 Presence of automatic (implantable) cardiac defibrillator; F32.9 Major depressive disorder, single episode, unspecified; E78.5 Hyperlipidemia, unspecified; K21.9 Gastro-esophageal reflux disease without esophagitis; I25.5 Ischemic cardiomyopathy; I48.91 Unspecified atrial fibrillation; Z87.442 Personal history of urinary calculi; I50.22 Chronic systolic (congestive) heart failure; Z87.891 Personal history of nicotine dependence; Z79.899 Other long term (current) drug therapy; Z88.8 Allergy status to other drugs, medicaments and biological substances

== ENCOUNTER 2018-04-23 09:47 | Inpatient (IN) | payer OTHER ==
[~2018-04-23] VITALS: Ht 162.6 cm; Wt 68.6 kg
[~2018-04-23 09:47] MED LIST changes: +ASPI-319 PO; -ASPI81TA21 PO; -FLV1 PO; +FOLI1TAB8 PO; +THIA100T10 PO; -THM100 PO
--- NOTE | 2018-04-23 10:46 | DIAGNOSTIC IMAGING REPORT ---
CHEST ONE VIEW PORTABLE CLINICAL HISTORY: 63 years-old Male presenting with CHEST PAIN. TECHNIQUE: Portable upright AP view of the chest was obtained. COMPARISON: 06/21/2017. FINDINGS: Left subclavian implanted cardiac defibrillator with single lead to the right ventricular apex. Atherosclerosis of aortic arch. Cardiac silhouette normal in size. Lungs and pleural spaces clear. Degenerative changes of the thoracic spine. Deformity of the left humeral head and proximal metaphysis possibly posttraumatic. Upper abdomen normal. IMPRESSION: 1. No acute cardiopulmonary disease. Electronically signed by: Lavelle Manriquez M.D. 04/23/2018 10:44 AM Dictated Date/Time: 04/23/2018 10:43 AM
--- NOTE | 2018-04-23 11:17 | EMERGENCY ROOM VISIT NOTE ---
History Report prepared by Shahid: Milton Cole Under the Supervision of: Dr. Jere Saez M.D. First contact with patient: 10:22 Chief Complaint: CHEST PAIN Stated Complaint: CHEST PAIN Nursing Triage Summary: Lives with son, came in from home via ALS. pt reports generalized chest pain that comes and goes since AM. pt states pain increases with movement and gets SOB with pain History of Present Illness The patient is a 63 year old male who presents to the Emergency Room with complaints of intermittent chest pain across the superior aspect of his chest that started sometime today. The patient states he felt short of breath when the pain onset and that it felt like a prior myocardial infarction that occurred 3 years ago. However, he states that the pain only lasts a few seconds when it comes. The patient says he has felt fine up until today and has not complications with his pacemaker although he also has a history of seizures. His resizer operator is Dr. Alicja Rosado. He is a non smoker and takes Lasix and Depakote daily. The patient denies fever, chill, or headache. Source of History: patient Onset: Today Position: chest Timing: intermittent Associated Symptoms: + SOB, No fevers, No chills, No headache Review of Systems See HPI for pertinent positives and negatives. A total of ten systems were reviewed and were otherwise negative. Past Medical & Surgical Medical Problems: (1) CAD (coronary artery disease) (2) Cardiac defibrillator in situ (3) Carotid stenosis (4) Convulsions (5) CVA (cerebral infarction) (6) Depressive disorder (7) Dyslipidemia (8) GERD (gastroesophageal reflux disease) (9) Ischemic cardiomyopathy (10) Kidney stone (11) Left humeral fracture (12) Left spastic hemiplegia (13) Osteoporosis (14) PUD (peptic ulcer disease) (15) S/P ORIF (open reduction internal fixation) fracture Surgical Problems: (1) S/P appendectomy Family History FH: heart disease FATHER MOTHER Social History Smoking Status: Never Smoker Alcohol Use: none Drug Use: marijuana Marital Status: Housing Status: lives with family Occupation Status: disabled Current/Historical Medications Scheduled Alendronate Sodium (Fosamax), 70 MG PO WK Aspirin Enteric Coated (Ecotrin Or Generic), 81 MG PO DAILY Atorvastatin (Lipitor), 40 MG PO HS Clopidogrel Bisulfate (Plavix), 75 MG PO DAILY Dexlansoprazole (Dexilant), 60 MG PO DAILY Digoxin (Digoxin), 0.125 MG PO DAILY Divalproex Sodium (Divalproex Sodium ER), 250 MG PO HS Divalproex Sodium (Divalproex Sodium ER), 1,000 MG PO HS Fluoxetine (Prozac), 40 MG PO DAILY Furosemide (Lasix), 20 MG PO Q2D Multivitamins (Daily Jeannette), 1 TAB PO DAILY Thiamine Hcl (Vitamin B-1), 100 MG PO DAILY Allergies Coded Allergies: Naproxen (Verified Allergy, Mild, 11/13/17) Physical Exam Vital Signs Date Time Temp Pulse Resp B/P (MAP) Pulse Ox O2 Delivery O2 Flow Rate FiO2 04/23/18 14:11 61 04/23/18 14:09 62 18 110/71 97 Room Air 04/23/18 13:36 63 16 104/73 98 Room Air 04/23/18 12:04 57 16 105/59 97 Room Air 04/23/18 11:33 57 18 121/65 97 Room Air 04/23/18 10:54 57 14 107/62 100 Room Air 04/23/18 10:02 60 04/23/18 09:59 Room Air 04/23/18 09:59 99 Room Air 04/23/18 09:59 36.4 64 12 114/60 99 Room Air Physical Exam GENERAL: Awake, alert, fatigued-appearing, in no distress HENT: Normocephalic, atraumatic. Oropharynx unremarkable. Mucous membranes are dry. EYES: Normal conjunctiva. Sclera non-icteric. NECK: Supple. No nuchal rigidity. FROM. No JVD. RESPIRATORY: Clear to auscultation. CARDIAC: Regular rate, normal rhythm. Extremities warm and well perfused. Pulses equal. ABDOMEN: Soft, non-distended. No tenderness to palpation. No rebound or guarding. No masses. RECTAL: Deferred. MUSCULOSKELETAL: Chest examination reveals no tenderness. The back is symmetrical on inspection without obvious abnormality. There is no CVA tenderness to palpation. No joint edema. LOWER EXTREMITIES: Calves are equal size bilaterally and non-tender. Scant lower extremity edema. No discoloration. NEURO: Normal sensorium. No sensory deficits. Left upper extremity paresis at baseline. Mild baseline tremor which he says is normal for him. SKIN: No rash or jaundice noted. Medical Decision & Procedures ER Provider Diagnostic Interpretation: Radiology results as stated below per my review and radiologist interpretation: CHEST ONE VIEW PORTABLE CLINICAL HISTORY: 63 years-old Male presenting with CHEST PAIN. TECHNIQUE: Portable upright AP view of the chest was obtained. COMPARISON: 06/21/2017. FINDINGS: Left subclavian implanted cardiac defibrillator with single lead to the right ventricular apex. Atherosclerosis of aortic arch. Cardiac silhouette normal in size. Lungs and pleural spaces clear. Degenerative changes of the thoracic spine. Deformity of the left humeral head and proximal metaphysis possibly posttraumatic. Upper abdomen normal. IMPRESSION: 1. No acute cardiopulmonary disease. Electronically signed by: Lavelle Manriquez M.D. 04/23/2018 10:44 AM Dictated Date/Time: 04/23/2018 10:43 AM Laboratory Results 04/23/18 12:20 Red Blood Count 4.08, Mean Corpuscular Volume 95.6, Mean Corpuscular Hemoglobin 31.4, Mean Corpuscular Hemoglobin Concent 32.8, Mean Platelet Volume 12.0, Neutrophils (%) (Auto) 57.8, Lymphocytes (%) (Auto) 22.6, Monocytes (%) (Auto) 17.2, Eosinophils (%) (Auto) 1.9, Basophils (%) (Auto) 0.1, Neutrophils # (Auto ) 4.15, Lymphocytes # (Auto) 1.63, Monocytes # (Auto) 1.24, Eosinophils # (Auto ) 0.14, Basophils # (Auto) 0.01 04/23/18 12:20 Test 04/23/18 00:00 04/23/18 12:20 04/23/18 12:22 04/23/18 13:49 Urine Opiates Screen NEG (NEG) Urine Methadone, Qualitative NEG (NEG) Urine Barbiturates NEG (NEG) Urine Phencyclidine (PCP) Level NEG (NEG) Ur Amphetamine/Methamphetamine NEG (NEG) MDMA (Ecstasy) Screen NEG (NEG) Urine Benzodiazepines Screen NEG (NEG) Urine Cocaine Metabolite NEG (NEG) Urine Marijuana (THC) NEG (NEG) White Blood Count 7.20 K/uL (4.8-10.8) Red Blood Count 4.08 M/uL (4.7-6.1) Hemoglobin 12.8 g/dL (14.0-18.0) Hematocrit 39.0 % (42-52) Mean Corpuscular Volume 95.6 fL (80-100) Mean Corpuscular Hemoglobin 31.4 pg (25-34) Mean Corpuscular Hemoglobin Concent 32.8 g/dl (32-36) Platelet Count 106 K/uL (130-400) Mean Platelet Volume 12.0 fL (7.4-10.4) Neutrophils (%) (Auto) 57.8 % Lymphocytes (%) (Auto) 22.6 % Monocytes (%) (Auto) 17.2 % Eosinophils (%) (Auto) 1.9 % Basophils (%) (Auto) 0.1 % Neutrophils # (Auto) 4.15 K/uL (1.4-6.5) Lymphocytes # (Auto) 1.63 K/uL (1.2-3.4) Monocytes # (Auto) 1.24 K/uL (0.11-0.59) Eosinophils # (Auto) 0.14 K/uL (0-0.5) Basophils # (Auto) 0.01 K/uL (0-0.2) RDW Standard Deviation 54.3 fL (36.4-46.3) RDW Coefficient of Variation 15.5 % (11.5-14.5) Immature Granulocyte % (Auto) 0.4 % Immature Granulocyte # (Auto) 0.03 K/uL (0.00-0.02) Platelet Estimate DECREASED Echinocytes 1+ Prothrombin Time 10.6 SECONDS (9.0-12.0) Prothromb Time International Ratio 1.0 (0.9-1.1) D-Dimer 810 ug/L FEU (0-500) Anion Gap 10.0 mmol/L (3-11) Est Creatinine Clear Calc Drug Dose 62.5 ml/min Estimated GFR () 91.8 Estimated GFR (Non- 79.2 BUN/Creatinine Ratio 15.3 (10-20) Calcium Level 9.4 mg/dl (8.5-10.1) Phosphorus Level 3.3 mg/dl (2.5-4.9) Magnesium Level 2.3 mg/dl (1.8-2.4) Total Bilirubin 0.4 mg/dl (0.2-1) Direct Bilirubin 0.2 mg/dl (0-0.2) Aspartate Amino Transf (AST/SGOT) 20 U/L (15-37) Alanine Aminotransferase (ALT/SGPT) 15 U/L (12-78) Alkaline Phosphatase 55 U/L (45-117) Pro-B-Type Natriuretic Peptide 563 pg/ml (0-900) Total Protein 7.7 gm/dl (6.4-8.2) Albumin 3.2 gm/dl (3.4-5.0) Lipase 150 U/L (73-393) Digoxin Level 0.9 ng/ml (0.8-2.0) Valproic Acid (Depakene) Level 126 mcg/ml (50-100) Hepatitis C Antibody Screen NEG (NEG) Ethyl Alcohol mg/dL < 3.0 mg/dl (0-3) Laboratory results reviewed by me Medications Administered Medications (Trade) Dose Ordered Sig/Ton Route Start Time Stop Time Status Last Admin Dose Admin Famotidine (Pepcid Tab) 20 mg NOW ONCE PO 04/23/18 13:30 04/23/18 13:31 DC 04/23/18 13:45 20 MG Lidocaine HCl (Viscous Lidocaine 2% Soln) 20 ml STK-MED ONCE .ROUTE 04/23/18 13:38 04/23/18 13:39 DC 04/23/18 13:45 10 ML Al Hydroxide/Mg Hydroxide (Maalox Susp) 30 ml STK-MED ONCE .ROUTE 04/23/18 13:38 04/23/18 13:39 DC 04/23/18 13:44 30 ML ECG Per My Interpretation Indication: chest pain Rate (beats per minute): 64 Rhythm: sinus rhythm Findings: no acute ischemic change, other (Non specific lateral ST and T wave abnormalities) Comparison ECG Date: November 13 2017 Change: no significant change ED Course 1023: The patient was evaluated in room A3. A complete history and physical exam was performed. 1204: I reevaluated the patient and let him know the plan of treatment moving forward 1321: I spoke with the patient and he is doing well. 1330: Upon reexamination, the patient was resting in bed. I discussed the test results and treatment plan with Anahi Rosado PA-C. The patient will be evaluated for further management by her. Medical Decision I reviewed the patient's past medical history, medications, and the nursing notes as described above. Differential diagnosis: Etiologies such as cardiac ischemia, aortic dissection, pulmonary embolism, pneumonia, pneumothorax, musculoskeletal, infections, pericarditis, myocarditis , esophageal rupture, gastrointestinal, as well as others were entertained. The patient is a 63-year-old gentleman with a past medical history of ischemic cardiomyopathy with systolic heart failure with EF of 20% status post AICD, CAD , hypertension, CKD, history of CVA, seizure disorder who presents emergency department with intermittent chest pain since this morning per hpi. On arrival the patient is no acute distress, afebrile stable vital signs. Patient denies any chest pain On arrival. EKG without evidence of acute ischemia and similar to prior. Chest x-ray unremarkable. Troponin within normal limits. WBC within normal limits. Chemistry unremarkable. Interrogation of the patient's AICD unremarkable without any events. On reevaluation patient reports return of his chest pain. The patient is a heart score 5, moderate risk, therefore it is reasonable to admit the patient for further monitoring of his symptoms and trending of troponins. He was given aspirin by EMS. Given Pepcid and GI cocktail for possible GI related etiology. Case was discussed with Alonzo Moses PA-C, will evaluate the patient for admission. Medication Reconcilliation Current Medication List: was personally reviewed by me Blood Pressure Screening Refer to Hospitalist Consults Time Called: 1328 Consulting Physician: Anahi Rosado PA-C Returned Call: 1330 I discussed the patient with Anahi Rosado PA-C. She will evaluate the patient for further treatment. Impression Primary Impression: Substernal chest pain Scribe Attestation The scribe's documentation has been prepared under my direction and personally reviewed by me in its entirety. I confirm that the note above accurately reflects all work, treatment, procedures, and medical decision making performed by me. Departure Information Dispostion Being Evaluated By Hospitalist Referrals Richardson Sterling M.D. (PCP) Forms Call Back Authorization, HOME CARE DOCUMENTATION FORM, IMPORTANT VISIT INFORMATION Patient Instructions My [facility]
[2018-04-23 13:02] LABS: ALBUMIN 3.2 gm/dl (3.4-5.0); ALKALINE PHOSPHATASE 55 U/L (45-117); ALT/SGPT 15 U/L (12-78); AST/SGOT 20 U/L (15-37); BLOOD UREA NITROGEN 15 mg/dl (7-18); CALCIUM 9.4 mg/dl (8.5-10.1); CARBON DIOXIDE 24 mmol/L (21-32); GLUCOSE 79 mg/dl (70-99); LIPASE 150 U/L (73-393); PHOSPHORUS 3.3 mg/dl (2.5-4.9); POTASSIUM 4.2 mmol/L (3.5-5.1); SODIUM 140 mmol/L (136-145); TOTAL PROTEIN 7.7 gm/dl (6.4-8.2)
[2018-04-23 13:06] LABS: HEMOGLOBIN 12.8 g/dL (14.0-18.0); MEAN CELL VOLUME 95.6 fL (80-100); MEAN CORPUSCULAR HEMOGLOBIN 31.4 pg (25-34); MEAN CORPUSCULAR HGB CONC 32.8 g/dl (32-36); PLATELET COUNT 106 K/uL (130-400); RED CELL DISTRIBUTION WIDTH CV 15.5 % (11.5-14.5); RED CELL DISTRIBUTION WIDTH SD 54.3 fL (36.4-46.3)
[2018-04-23 13:07] LABS: BASO % 0.1 %; BASO ABS # 0.01 K/uL (0-0.2); EOS % 1.9 %; EOS ABS # 0.14 K/uL (0-0.5); IG# 0.03 K/uL (0.00-0.02); LYMPH % 22.6 %; LYMPH ABS # 1.63 K/uL (1.2-3.4); MONO % 17.2 %; MONO ABS # 1.24 K/uL (0.11-0.59); NEUT % 57.8 %; NEUT ABS # 4.15 K/uL (1.4-6.5)
[2018-04-23 13:10] LABS: DIGOXIN 0.9 ng/ml (0.8-2.0)
[2018-04-23] MEDS ORDERED: ASPIRIN 81 MG CHEW PO STA (13:29)
[2018-04-23] MEDS ORDERED: GI COCKTAIL PO STA (13:29)
[2018-04-23] MEDS ORDERED: FAMOTIDINE 20 MG TAB PO ONE (13:30)
[2018-04-23] MEDS ORDERED: ALUMINUM/MAGNESIUM SUSP 30 ML UDC ONE (13:38)
[2018-04-23] MEDS ORDERED: LIDOCAINE HCL 2% VISC SOLN 20 ML UDC ONE (13:38)
[2018-04-23] MEDS ORDERED: ACETAMINOPHEN 325 MG TAB PO PRN (14:30)
[2018-04-23] MEDS ORDERED: ONDANSETRON INJ 2 MG/ML 2 ML VIAL IV PRN (14:30)
[2018-04-23 15:11] VITALS: O2SAT 98; Ht 162.6 cm; Wt 68.6 kg
[2018-04-23 16:00] VITALS: BP 99/55; PULSE 67; TEMP 36.7; O2SAT 99
--- NOTE | 2018-04-23 16:15 | History and Physical ---
History & Physical Date & Time of Service: Apr 23, 2018 ~ 1400 Chief Complaint: Chest Pain Primary Care Physician: Richardson Sterling M.D. History of Present Illness 63-year-old male who presents the ED with chest pain. Patient reports he was sitting his chair when he developed chest pain across his entire chest. He describes the pain as a tightness. He rates the pain as a number 7 out of 10 at its worst. He reports associated shortness of breath. He then called EMS. He was given 4 baby aspirin and he reports resolution in his chest pain. He denies associated nausea, diaphoresis, lightheadedness, dizziness, syncopal event. Patient reports he otherwise has been feeling well recently. He denies abdominal pain, vomiting, diarrhea. No other recent illnesses fevers or chills. He denies any urinary symptoms. In the ED, patient's initial troponin is negative and EKG does not show any acute ST changes. He is hemodynamically stable. He was given a GI cocktail. Past Medical/Surgical History Medical Problems: (1) CAD (coronary artery disease) Permanent Comment: Left and right heart catheterization report summary 09/21/2014 : Proximal LAD has a 60% stenosis, a long 50% mid LAD disease Large branching OM2 has a 50% lesion The RCA has mild luminal irregularities The right sided pressures are mildly elevated without pulmonary hypertension ( mean PA = 22 mm Hg), Mean wedge 13 mm Hg, LVEDP 14 mm hg, CO 4.1 (Thermodilution ) Status: Chronic (2) Cardiac defibrillator in situ Status: Chronic (3) Carotid stenosis Status: Chronic (4) Convulsions Permanent Comment: EEG abnormal in 2006- potential seizure focus in R temporal region 09/10/06 Status: Chronic (5) CVA (cerebral infarction) Status: Chronic (6) Depressive disorder Status: Chronic (7) Dyslipidemia Status: Chronic (8) GERD (gastroesophageal reflux disease) Status: Chronic (9) Ischemic cardiomyopathy Permanent Comment: Echo 05/2017 EF 20% Status: Chronic (10) Kidney stone Status: Chronic (11) Left humeral fracture Permanent Comment: Status post repair Status: Chronic (12) Left spastic hemiplegia Status: Chronic (13) Osteoporosis Status: Chronic (14) PUD (peptic ulcer disease) Status: Chronic (15) S/P ORIF (open reduction internal fixation) fracture Permanent Comment: 01/07/07 ORIF left tibial plateau fracture Status: Chronic Surgical Problems: (1) S/P appendectomy Status: Chronic Family History FH: heart disease FATHER (ND at age 68) MOTHER (ND at age 68) Social History Smoking Status: Never Smoker Alcohol Use: none (However has had admissions for alcohol intoxication in the past) Drug Use: marijuana (Denies current use) Immunizations History of Influenza Vaccine: Yes Influenza Vaccine Date: Jul 08, 2017 History of Tetanus Vaccine?: Yes Tetanus Immunization Date: Aug 27, 2007 Allergies Coded Allergies: Naproxen (Verified Allergy, Mild, 11/13/17) Home Medications Scheduled Alendronate Sodium (Fosamax), 70 MG PO WK Aspirin Enteric Coated (Ecotrin Or Generic), 81 MG PO DAILY Atorvastatin (Lipitor), 40 MG PO HS Clopidogrel Bisulfate (Plavix), 75 MG PO DAILY Dexlansoprazole (Dexilant), 60 MG PO DAILY Digoxin (Digoxin), 0.125 MG PO DAILY Divalproex Sodium (Divalproex Sodium ER), 250 MG PO HS Divalproex Sodium (Divalproex Sodium ER), 1,000 MG PO HS Fluoxetine (Prozac), 40 MG PO DAILY Furosemide (Lasix), 20 MG PO Q2D Multivitamins (Daily Jeannette), 1 TAB PO DAILY Thiamine Hcl (Vitamin B-1), 100 MG PO DAILY Review of Systems ROS per HPI, all other systems reviewed and negative Physical Exam Vital Signs Date Time Temp Pulse Resp B/P (MAP) Pulse Ox O2 Delivery O2 Flow Rate FiO2 04/23/18 15:31 78 23 99/61 99 04/23/18 15:11 98 Room Air 04/23/18 14:54 57 20 99/56 98 Room Air 04/23/18 14:11 61 04/23/18 14:09 62 18 110/71 97 Room Air 04/23/18 13:36 63 16 104/73 98 Room Air 04/23/18 12:04 57 16 105/59 97 Room Air 04/23/18 11:33 57 18 121/65 97 Room Air 04/23/18 10:54 57 14 107/62 100 Room Air 04/23/18 10:02 60 04/23/18 09:59 Room Air 04/23/18 09:59 99 Room Air 04/23/18 09:59 36.4 64 12 114/60 99 Room Air General Appearance: WD/WN, no apparent distress Head: normocephalic, atraumatic Eyes: normal inspection, EOMI, sclerae normal ENT: hearing grossly normal, + pertinent finding (Mucous membranes moist) Neck: supple, no JVD, trachea midline Respiratory/Chest: lungs clear, normal breath sounds, no respiratory distress Cardiovascular: regular rate, rhythm, no edema, normal peripheral pulses Abdomen/GI: normal bowel sounds, non tender, soft, no organomegaly Extremities/Musculoskelatal: normal inspection, no calf tenderness, normal capillary refill Neurologic/Psych: alert, normal mood/affect, oriented x 3, + pertinent finding (Chronic left hemiparesis, no other gross focal deficits noted) Skin: normal color, warm/dry Diagnostics Laboratory Results Results Past 24 Hours Test 04/23/18 12:20 04/23/18 12:22 04/23/18 13:49 Range/Units White Blood Count 7.20 4.8-10.8 K/uL Red Blood Count 4.08 4.7-6.1 M/uL Hemoglobin 12.8 14.0-18.0 g/dL Hematocrit 39.0 42-52 % Mean Corpuscular Volume 95.6 80-100 fL Mean Corpuscular Hemoglobin 31.4 25-34 pg Mean Corpuscular Hemoglobin Concent 32.8 32-36 g/dl Platelet Count 106 130-400 K/uL Mean Platelet Volume 12.0 7.4-10.4 fL Neutrophils (%) (Auto) 57.8 % Lymphocytes (%) (Auto) 22.6 % Monocytes (%) (Auto) 17.2 % Eosinophils (%) (Auto) 1.9 % Basophils (%) (Auto) 0.1 % Neutrophils # (Auto) 4.15 1.4-6.5 K/uL Lymphocytes # (Auto) 1.63 1.2-3.4 K/uL Monocytes # (Auto) 1.24 0.11-0.59 K/uL Eosinophils # (Auto) 0.14 0-0.5 K/uL Basophils # (Auto) 0.01 0-0.2 K/uL RDW Standard Deviation 54.3 36.4-46.3 fL RDW Coefficient of Variation 15.5 11.5-14.5 % Immature Granulocyte % (Auto) 0.4 % Immature Granulocyte # (Auto) 0.03 0.00-0.02 K/uL Platelet Estimate DECREASED Echinocytes 1+ Prothrombin Time 10.6 9.0-12.0 SECONDS Prothromb Time International Ratio 1.0 0.9-1.1 Sodium Level 140 136-145 mmol/L Potassium Level 4.2 3.5-5.1 mmol/L Chloride Level 106 98-107 mmol/L Carbon Dioxide Level 24 21-32 mmol/L Anion Gap 10.0 3-11 mmol/L Blood Urea Nitrogen 15 7-18 mg/dl Creatinine 1.00 0.60-1.40 mg/dl Est Creatinine Clear Calc Drug Dose 62.5 ml/min Estimated GFR () 91.8 Estimated GFR (Non- 79.2 BUN/Creatinine Ratio 15.3 10-20 Random Glucose 79 70-99 mg/dl Calcium Level 9.4 8.5-10.1 mg/dl Phosphorus Level 3.3 2.5-4.9 mg/dl Magnesium Level 2.3 1.8-2.4 mg/dl Total Bilirubin 0.4 0.2-1 mg/dl Direct Bilirubin 0.2 0-0.2 mg/dl Aspartate Amino Transf (AST/SGOT) 20 15-37 U/L Alanine Aminotransferase (ALT/SGPT) 15 12-78 U/L Alkaline Phosphatase 55 45-117 U/L Troponin I < 0.015 0-0.045 ng/ml Pro-B-Type Natriuretic Peptide 563 0-900 pg/ml Total Protein 7.7 6.4-8.2 gm/dl Albumin 3.2 3.4-5.0 gm/dl Lipase 150 73-393 U/L Digoxin Level 0.9 0.8-2.0 ng/ml Valproic Acid (Depakene) Level 126 50-100 mcg/ml Ethyl Alcohol mg/dL < 3.0 0-3 mg/dl Diagnostic Radiology CXR IMPRESSION: 1. No acute cardiopulmonary disease. Impression Assessment and Plan CHEST PAIN HISTORY OF ISCHEMIC CARDIOMYOPATHY S/P AICD -Admit to telemetry -Patient presenting from home with reports of chest pain and shortness of breath that began at rest; in the ED, initial troponin negative, EKG without acute ST changes patient is currently chest pain-free -Check d-dimer -History of ischemic cardiomyopathy with EF of 20% -We will continue to trend cardiac enzymes, check resting echocardiogram -AICD interrogation -Noted cardiac cath from 08/2014 demonstrated nonobstructive disease -Continue aspirin, Plavix, statin, digoxin (noted normal digoxin level) -Cardiology consult, input appreciated SEIZURE DISORDER -Depakote level elevated at 126 -Discussed with Dr. Villeda, who recommends continuing current dose and rechecking Depakote level in the morning and if it remains elevated she will provide further recommendations HISTORY OF CVA -Continue aspirin, Plavix, and statin HISTORY OF ALCOHOL AND MARIJUANA ABUSE -Alcohol level currently negative -Check UDS -Continue multivitamin, thiamine, folic acid GERD -Continue PPI DVT PROPHYLAXIS -SQ Lovenox DISPOSITION -The patient will be placed as observation status for now until further work up is complete. ATTENDING ADDENDUM Patient seen and examined care coordinated with Ольга españa PA-C This is a 63-year-old male with a complicated past medical history of severe ischemic cardiomyopathy with systolic dysfunction, EF of 20% status post AICD History of coronary artery disease, hypertension hyperlipidemia Came to ER with complaint of substernal chest discomfort radiating to left side while at rest Patient was given aspirin, Has been chest pain-free since admission Vitals remained stable Patient will be observed in telemetry Has multiple risk factors for ACS Cardiology consult requested ordered for resting echocardiogram Serial cardiac markers will be followed Patient had a recent cardiac cath which showed moderate coronary artery disease all out patient cardiac meds will be continued CODE STATUS full code Please refer to further documentation by Ольга españa PA-C for discussion of other chronic issues Xenia Guzman MD Advanced Directives Existing Living Will: No Existing Power of Hog Scalder: No Resuscitation Status VTE Prophylaxis Will order VTE Prophylaxis: Yes
[2018-04-23] MEDS ORDERED: OPTIRAY 320 IV PRN (17:00)
[2018-04-23] MEDS: FUROSEMIDE 20 MG TAB PO SCH (17:35)
[2018-04-23] MEDS: ENOXAPARIN 40 MG/0.4 ML SYR SC SCH (17:36)
[2018-04-23 19:18] VITALS: BP 80/47; PULSE 75; TEMP 36.6; O2SAT 96
[2018-04-23] MEDS ORDERED: IV FLUIDS COMPLETED PRN (19:30)
--- NOTE | 2018-04-23 21:12 | DIAGNOSTIC IMAGING REPORT ---
(CHEST FOR PE) ANGIO WITH CT DOSE: 518.34 mGy.cm HISTORY: 63 years-old Male with . Presents with acute shortness breath and chest pain TECHNIQUE: Multiple CTA images of the chest were obtained after the intravenous administration of 116 ml Optiray 320. Coronal and sagittal MIPS were obtained from the axial data set and were submitted for review. A dose lowering technique was utilized adhering to the principles of ALARA. COMPARISON: Chest radiograph of same day, CT chest 11/28/2016 FINDINGS: CTA: Mild multichamber cardiac enlargement. Left subclavian pacer is noted with lead overlying the right ventricle. Three-vessel extrusion of coronary arterial calcifications are noted. Moderate mixed plaque formation about the thoracic aorta without aneurysm or dissection. Tortuosity of the descending thoracic aorta. The imaged great vessels appear patent. Mild dilation of the main pulmonary artery, 3.1 cm, possibly reflecting pulmonary arterial hypertension. There is reflux of contrast into the IVC and hepatic veins. Pulmonary arterial tree is opacified to level of the segmental branches. Evaluation of the segmental and subsegmental branches however is limited secondary to respiratory motion. No central pulmonary embolus identified. CT CHEST: No dominant thyroid nodule or pathologically enlarged lymph nodes identified. Mild bilateral bronchial wall thickening. Subsegmental groundglass opacities about the bilateral lung bases. Minimal dependent subsegmental atelectasis in the lung bases is noted as well. No lobar airspace consolidation or suspicious pulmonary nodules identified. Central airways are patent. 6 mm nonobstructing calculus of the interpolar right kidney. 2.0 cm hypodense lesion of the superior pole right kidney suggests probable renal cysts. Cholelithiasis. No acute process of the imaged upper abdomen. Mild bilateral gynecomastia. Bones appear intact. Degenerative changes of the spine are noted. Multilevel spondylitic spurring. Remote left-sided rib fractures. IMPRESSION: 1. No evidence of acute aortic pathology or pulmonary thromboembolic disease. Please note however that evaluation of the pulmonary arterial tree is limited secondary to respiratory motion. No central pulmonary embolus identified. 2. Mild bilateral bronchial wall thickening suggests bronchitis. Bibasilar groundglass densities likely represent atelectasis with pneumonitis thought to be less likely. 3. No lobar airspace consolidation or adenopathy. 4. Cardiomegaly with coronary arterial calcifications. 5. Cholelithiasis. 6. 6 mm nonobstructing calculus of the interpolar right kidney. The above report was generated using voice recognition software. It may contain grammatical, syntax or spelling errors. Electronically signed by: Sebastian Conde M.D. 04/23/2018 9:11 PM Dictated Date/Time: 04/23/2018 9:01 PM
--- NOTE | 2018-04-23 21:19 | DIAGNOSTIC IMAGING REPORT ---
BILATERAL LOWER EXTREMITY VENOUS DOPPLER HISTORY: Acute bilateral lower extremity pain and swelling DVT? COMPARISON STUDY: CTA chest of same day. FINDINGS: There is normal compressibility, flow, and augmentation within the bilateral lower extremity deep venous systems. IMPRESSION: No sonographic evidence of deep venous thrombosis within the right or left lower extremity. Electronically signed by: Sebastian Conde M.D. 04/23/2018 9:18 PM Dictated Date/Time: 04/23/2018 9:17 PM
[2018-04-23] MEDS: DIVALPROEX 250 MG EXTENDED REL TAB PO SCH (21:32)
[2018-04-23] MEDS: DIVALPROEX 500 MG EXTENDED RELEASE TAB PO SCH (21:32)
[2018-04-23] MEDS: ATORVASTATIN 40 MG TAB PO SCH (21:32)
[2018-04-23 22:49] VITALS: BP 85/43; PULSE 84; TEMP 37.1; O2SAT 94
[2018-04-24] VITALS (7 sets, daily range): BP systolic 86–97; BP diastolic 50–63; PULSE 52–68; TEMP 36.4–36.8; O2SAT 93–98
[2018-04-24 06:44] LABS: HEMATOCRIT 36.4 % (42-52); HEMOGLOBIN 11.8 g/dL (14.0-18.0); MEAN CORPUSCULAR HEMOGLOBIN 31.1 pg (25-34); MEAN CORPUSCULAR HGB CONC 32.4 g/dl (32-36); RED CELL DISTRIBUTION WIDTH CV 15.7 % (11.5-14.5); RED CELL DISTRIBUTION WIDTH SD 55.3 fL (36.4-46.3); WHITE BLOOD COUNT 4.83 K/uL (4.8-10.8)
[2018-04-24 06:45] LABS: PLATELET COUNT 100 K/uL (130-400)
[2018-04-24 06:56] LABS: CALCIUM 8.4 mg/dl (8.5-10.1); POTASSIUM 3.8 mmol/L (3.5-5.1)
[2018-04-24] MEDS ORDERED: PERFLUTREN LIPID MICROSPHERE (DEFINITY) IV ONE (07:24)
[2018-04-24] MEDS: ASPIRIN 81 MG ECTAB PO SCH (08:02)
[2018-04-24] MEDS: FLUOXETINE HCL 20 MG CAP PO SCH (08:02)
[2018-04-24] MEDS: CLOPIDOGREL BISULFATE 75 MG TAB PO SCH (08:03)
[2018-04-24] MEDS: PANTOprazole SOD 40 MG TAB PO SCH (08:03)
[2018-04-24] MEDS: MULTIVITAMIN TAB PO SCH (08:03)
[2018-04-24] MEDS: THIAMINE HCL 100 MG TAB PO SCH (08:03)
[2018-04-24] MEDS ORDERED: DIGOXIN 0.125 MG TAB PO SCH (09:00)
--- NOTE | 2018-04-24 11:10 | Cardiology Consultation ---
Cardiology Consultation Date of Service Apr 24, 2018. Cardiology Consultation Indication: Consultation for chest pain History: This is a 63-year-old male patient who is well-known to the cardiology service. He has a history of a severe ischemic cardiomyopathy with an estimated left ventricular ejection fraction of around 20%. This ischemic cardiomyopathy resulted from a late presentation with an anterior wall myocardial infarction. He is status post ICD implant. In the past he has been evaluated by the advanced heart failure service for possible LVAD but was turned down. He has been fairly stable from a cardiac standpoint except recently he had a hospital admission for atypical chest pain which was associated to alcohol intoxication and marijuana. Yesterday he was in his usual state of health. He describes severe chest pain which took his breath away and lasted for several minutes and then spontaneously resolved only to return several minutes later. By the time he presented to the emergency department he was pain-free. His cardiac markers have been negative 3. His EKG shows no acute changes. He has no complaints this morning. Allergies: Naproxen Reported Home Medications Medications Dose Route/Sig Max Daily Dose Days Date Category Dose Instructions Daily Jeannette (Multivitamins) 1 Tab Tab 1 Tab PO DAILY 11/13/17 Reported Vitamin B-1 (Thiamine HCl) 100 Mg Tab 100 Mg PO DAILY 11/13/17 Reported Digoxin 0.125 Mg Tab 0.125 Mg PO DAILY 09/19/16 Reported Divalproex Sodium ER (Divalproex Sodium) 500 Mg Tabcr 1,000 Mg PO HS 03/03/16 Reported Dexilant (Dexlansoprazole) 60 Mg Cap 60 Mg PO DAILY 03/03/16 Reported Divalproex Sodium ER (Divalproex Sodium) 250 Mg Tabcr 250 Mg PO HS 03/03/16 Reported Lipitor (Atorvastatin Calcium) 40 Mg Tab 40 Mg PO HS 04/02/14 Reported Fosamax (Alendronate Sodium) 70 Mg Tab 70 Mg PO WK 02/21/14 Reported TAKE THIS MEDICATION EVERY THURSDAY Lasix (Furosemide) 20 Mg Tab 20 Mg PO Q2D 01/31/14 Reported Plavix (Clopidogrel Bisulfate) 75 Mg Tab 75 Mg PO DAILY 01/31/14 Reported Ecotrin Or Generic (Aspirin) 81 Mg Tab 81 Mg PO DAILY 04/09/12 Reported Prozac (Fluoxetine HCl) 40 Mg Cap 40 Mg PO DAILY 01/18/07 Reported Past medical history: Recent hospitalization for atypical chest pain, associated with alcohol intoxication and marijuana use. No recurrence. Stable echo findings. Chronic compensated systolic heart failure with underlying ischemic cardiomyopathy, ejection fraction 15-20%. NYHA class 3. s/p single chamber ICD; normal interrogation Moderate coronary artery disease History of renal insufficiency - stable. 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 Dyslipidemia Former tobacco abuse Right sided resting tremor Social history: Patient's a current non-smoker of tobacco but did smoke in the past. Family medical history: Noncontributory Review of systems: The 10 point review of systems is negative except for the history of chief complaint. Vital Signs Past 12 Hours Date Time Temp Pulse Resp B/P (MAP) Pulse Ox O2 Delivery O2 Flow Rate FiO2 04/24/18 08:03 55 92/57 (69) 04/24/18 08:00 Room Air 04/24/18 08:00 57 04/24/18 07:36 36.8 67 20 94/60 (71) 93 04/24/18 04:53 36.6 52 16 86/50 (62) 97 Room Air General Appearance: Alert and Oriented x3. NAD. Head: Normocephalic Atraumatic. Eyes: PERRLA, EOMI, conjunctiva and sclera clear Neck: Supple. No carotid bruits noted. No JVD. No HJD. Respiratory: Breath sounds clear to auscultation bilaterally. No w/r/r. Cardiovascular: Reg rate and rhythm. S1 and S2 noted. No murmurs, rubs, gallops. PMI non displace. Abdomen: Normal bowel sounds, soft nontender. no abdominal bruits. Extremities: No edema, no clubbing or cyanosis. distal pulses 2/4 bilaterally. Neuro: No focal deficits. Psychiatric: Normal affect. Last 24 Hours Test 04/23/18 12:20 04/23/18 12:22 04/23/18 13:49 04/23/18 18:01 White Blood Count 7.20 K/uL Red Blood Count 4.08 M/uL Hemoglobin 12.8 g/dL Hematocrit 39.0 % Mean Corpuscular Volume 95.6 fL Mean Corpuscular Hemoglobin 31.4 pg Mean Corpuscular Hemoglobin Concent 32.8 g/dl Platelet Count 106 K/uL Mean Platelet Volume 12.0 fL Neutrophils (%) (Auto) 57.8 % Lymphocytes (%) (Auto) 22.6 % Monocytes (%) (Auto) 17.2 % Eosinophils (%) (Auto) 1.9 % Basophils (%) (Auto) 0.1 % Neutrophils # (Auto) 4.15 K/uL Lymphocytes # (Auto) 1.63 K/uL Monocytes # (Auto) 1.24 K/uL Eosinophils # (Auto) 0.14 K/uL Basophils # (Auto) 0.01 K/uL RDW Standard Deviation 54.3 fL RDW Coefficient of Variation 15.5 % Immature Granulocyte % (Auto) 0.4 % Immature Granulocyte # (Auto) 0.03 K/uL Platelet Estimate DECREASED Echinocytes 1+ Prothrombin Time 10.6 SECONDS Prothromb Time International Ratio 1.0 D-Dimer 810 ug/L FEU Sodium Level 140 mmol/L Potassium Level 4.2 mmol/L Chloride Level 106 mmol/L Carbon Dioxide Level 24 mmol/L Anion Gap 10.0 mmol/L Blood Urea Nitrogen 15 mg/dl Creatinine 1.00 mg/dl Est Creatinine Clear Calc Drug Dose 62.5 ml/min Estimated GFR () 91.8 Estimated GFR (Non- 79.2 BUN/Creatinine Ratio 15.3 Random Glucose 79 mg/dl Calcium Level 9.4 mg/dl Phosphorus Level 3.3 mg/dl Magnesium Level 2.3 mg/dl Total Bilirubin 0.4 mg/dl Direct Bilirubin 0.2 mg/dl Aspartate Amino Transf (AST/SGOT) 20 U/L Alanine Aminotransferase (ALT/SGPT) 15 U/L Alkaline Phosphatase 55 U/L Troponin I < 0.015 ng/ml < 0.015 ng/ml Pro-B-Type Natriuretic Peptide 563 pg/ml Total Protein 7.7 gm/dl Albumin 3.2 gm/dl Lipase 150 U/L Digoxin Level 0.9 ng/ml Valproic Acid (Depakene) Level 126 mcg/ml Hepatitis C Antibody Screen NEG Ethyl Alcohol mg/dL < 3.0 mg/dl Test 04/24/18 00:13 04/24/18 05:56 Troponin I < 0.015 ng/ml White Blood Count 4.83 K/uL Red Blood Count 3.79 M/uL Hemoglobin 11.8 g/dL Hematocrit 36.4 % Mean Corpuscular Volume 96.0 fL Mean Corpuscular Hemoglobin 31.1 pg Mean Corpuscular Hemoglobin Concent 32.4 g/dl RDW Standard Deviation 55.3 fL RDW Coefficient of Variation 15.7 % Platelet Count 100 K/uL Mean Platelet Volume 12.0 fL Sodium Level 141 mmol/L Potassium Level 3.8 mmol/L Chloride Level 106 mmol/L Carbon Dioxide Level 29 mmol/L Anion Gap 6.0 mmol/L Blood Urea Nitrogen 17 mg/dl Creatinine 1.00 mg/dl Est Creatinine Clear Calc Drug Dose 62.5 ml/min Estimated GFR () 91.8 Estimated GFR (Non- 79.2 BUN/Creatinine Ratio 16.8 Random Glucose 80 mg/dl Calcium Level 8.4 mg/dl Valproic Acid (Depakene) Level 93 mcg/ml Impression: 1. Atypical chest pain 2. Ischemic cardiomyopathy with an estimated left ventricular ejection fraction of 20% 3. ICD for primary prevention 4. Previous old anterior wall myocardial infarction Recommendations: I would favor treating this patient conservatively. His cardiac markers are negative 3. He has had atypical chest pain in the past. His most recent cardiac catheterization reveals moderate nonobstructive coronary disease. I would favor ambulating him today and if he feels well tomorrow with no additional chest discomfort we can discharge him to outpatient follow-up.
--- NOTE | 2018-04-24 13:09 | ECHOCARDIOGRAM REPORT ---
*NOTICE TO RECEIVING [employer] This information is strictly Confidential and protected under [place] law. [place] law prohibits you from making any further disclosure of this information unless further disclosure is expressly permitted by the written consent of the person to whom it pertains or is authorized by law. A general authorization for the release of medical or other information is not sufficient for this purpose. Hospital accepts no responsibility if the information is made available to any other person, INCLUDING THE PATIENT. Interpretation Summary * Name: MARTHA WELCH Study Date: 04/24/2018 06:47 AM BP: 110/71 mmHg * Patient Location: [facility]\S\N284\S\2 HR: 55 * : 1955 (M/d/yyyy) Gender: Male Height: 64 in * Age: 63 yrs Ethnicity: CA Weight: 147 lb * Ordering Physician: Ольга Cagle * Referring Physician: Self, Referred * Performed By: Lalit Chaudhary RDCS * * Reason For Study: Chest pain * BSA: 1.7 m2 * -- Conclusions -- * There is a large sized apical, septal, anteroseptal, anterior, inferior, and lateral wall motion abnormality with hypokinesis to dyskinesis of the segments. * The left ventricular myocardial thickness is normal in segments with normal wall motion. * There is diffuse septal wall , anterior wall , apical wall thinning in a territory of LAD scar. * Left ventricular systolic function is severely reduced. * Ejection Fraction = 20-25%. * No significant valvular pathology. Procedure Details * A complete two-dimensional transthoracic echocardiogram was performed (2D, M-mode, Doppler and color flow Doppler). * The study was technically difficult, but visualization was adequate with the administration of Definity ultrasound contrast. * A contrast injection of Definity was performed to improve assessment of LV function. * Contrast was injected into an intravenous site in the right arm. * One vial of Definity ultrasound contrast was diluted in normal saline to a total volume of 10 ml. A total of '4' ml of solution was administered during imaging. * Lot # [id number] of Definity utilized for procedure. * Expiration date 1JUL. * The attending nurse who injected the contrast agent was Lizabeth Bray RN. Left Ventricle * The left ventricle is not well visualized. * There is no thrombus. * Left ventricular systolic function is severely reduced. * Ejection Fraction = 20-25%. * There is anterior wall akinesis. * There is septal akinesis. * There is apical akinesis. Right Ventricle * The right ventricle is grossly normal size. * The right ventricular systolic function is normal. Atria * The left atrium is not well visualized. * Right atrium not well visualized. Mitral Valve * The mitral valve anatomy is normal. * Significant mitral regurgitation is absent. Tricuspid Valve * The tricuspid valve anatomy is normal. * There is trace tricuspid regurgitation. Aortic Valve * The aortic valve is tricuspid. The leaflet thickness if normal. There is no aortic stenosis, and no significant insufficiency. * Aortic stenosis is absent. * There is no significant aortic regurgitation. Pulmonic Valve * The pulmonic valve is not well visualized. Great Vessels * The aortic root and proximal ascending aorta are normal sized. Pericardium/Pleural * There is no pericardial effusion. MMode 2D Measurements and Calculations IVSd 0.80 cm IVSs 1.2 cm LVIDd 4.6 cm LVIDs 3.7 cm LVPWd 0.77 cm LVPWs 1.0 cm IVS/LVPW 1.0 FS 21.1 % EDV(Teich) 99.4 ml ESV(Teich) 56.7 ml EF(Teich) 43.0 % EDV(cubed) 100.0 ml ESV(cubed) 49.1 ml EF(cubed) 51.0 % % IVS thick 48.5 % % LVPW thick 34.5 % LV mass(C)d 116.4 grams LV mass(C)dI 67.8 grams/m\S\2 LV mass(C)s 128.7 grams LV mass(C)sI 75.0 grams/m\S\2 SV(Teich) 42.8 ml SI(Teich) 24.9 ml/m\S\2 SV(cubed) 51.0 ml SI(cubed) 29.7 ml/m\S\2 EPSS 1.6 cm Ao root diam 2.9 cm Ao root area 6.6 cm\S\2 ACS 1.5 cm LA dimension 3.2 cm asc Aorta Diam 2.9 cm LA/Ao 1.1 LVOT diam 1.9 cm LVOT area 3.0 cm\S\2 LVAd ap4 29.6 cm\S\2 LVLd ap4 8.1 cm EDV(MOD-sp4) 89.0 ml EDV(sp4-el) 91.9 ml LVAs ap4 23.7 cm\S\2 LVLs ap4 7.5 cm ESV(MOD-sp4) 61.5 ml ESV(sp4-el) 63.8 ml EF(MOD-sp4) 31.0 % EF(sp4-el) 30.6 % LVAd ap2 25.3 cm\S\2 LVLd ap2 7.5 cm EDV(MOD-sp2) 68.7 ml EDV(sp2-el) 72.5 ml LVAs ap2 18.5 cm\S\2 LVLs ap2 6.9 cm ESV(MOD-sp2) 39.4 ml ESV(sp2-el) 42.1 ml EF(MOD-sp2) 42.6 % EF(sp2-el) 41.9 % LVLd %diff -8.19 % EDV(MOD-bp) 79.2 ml LVLs %diff -8.72 % ESV(MOD-bp) 48.0 ml EF(MOD-bp) 39.4 % SV(MOD-sp4) 27.6 ml SI(MOD-sp4) 16.1 ml/m\S\2 SV(MOD-sp2) 29.3 ml SI(MOD-sp2) 17.1 ml/m\S\2 SV(MOD-bp) 31.2 ml SI(MOD-bp) 18.2 ml/m\S\2 SV(sp4-el) 28.1 ml SI(sp4-el) 16.4 ml/m\S\2 SV(sp2-el) 30.4 ml SI(sp2-el) 17.7 ml/m\S\2 Doppler Measurements and Calculations MV E max gisell 62.8 cm/sec MV A max gisell 94.5 cm/sec MV E/A 0.66 MV dec time 0.20 sec Ao V2 max 102.9 cm/sec Ao max PG 4.2 mmHg Ao max PG (full) 1.2 mmHg YUDELKA(V,A) 2.5 cm\S\2 YUDELKA(V,D) 2.5 cm\S\2 LV V1 max PG 3.0 mmHg LV V1 max 87.0 cm/sec PA V2 max 62.8 cm/sec PA max PG 1.6 mmHg TR max gisell 244.8 cm/sec
[2018-04-24] MEDS: ENOXAPARIN 40 MG/0.4 ML SYR SC SCH (16:28)
--- NOTE | 2018-04-24 17:35 | Progress Note ---
Internal Med Progress Note Date of Service: Apr 24, 2018. Provider Documentation: SUBJECTIVE: Denies of any chest pain, shortness of breath Has mild nonproductive cough No fever or chills Denies of any orthopnea OBJECTIVE: Vital Signs-as noted below Exam: General-chronically ill-appearing: No apparent distress Eyes-sclera nonicteric, pupils bilateral equal reactive to light extraocular muscles ENT-moist oral mucosa Neck-neck supple, no jugular venous distention distention Lungs-clear to auscultate, no wheeze or rales Heart-regular S1 and S2 Abdomen-soft nontender, bowel sounds active Extremities-no lower extremity edema Neuro-awake oriented 3 Lab data as noted below. ASSESSMENT & PLAN: CHEST PAIN /HISTORY OF CORONARY ARTERY DISEASE: Left and right heart cath on 09/21/2014: Proximal LAD 60% stenosis, mid LAD 50% stenosis Large branching obtuse marginal 60% lesion Mild luminal irregularities and RCA Right side right ventricular pressure mildly elevated without pulmonary hypertension Presented with chest pain, shortness of breath Brought in at rest Has been symptoms free since admission Serial cardiac markers been negative EKG does not show any ST-T wave changes Appreciate input from cardiology Patient symptom is atypical for angina -No evidence of cardiac ischemia -Per cardiology no further cardiac intervention or studies needed- Continue prior cardiac meds SEVERE ISCHEMIC CARDIOMYOPATHY -Due to late presentation with an anterior wall ND Estimated left ventricular ejection fraction of 20%, -Status post ICD placement -Stable volume status, without any evidence of decompensation -No report of AICD firing -pt will continue to follow-up with [facility] cardiology Dr. See HISTORY OF SEIZURE DISORDER No recent seizure activity Continue Depakote Depakote level in a.m. HISTORY OF CVA Continue aspirin Plavix and statin HISTORY OF ALCOHOL ABUSE Denies of any recent alcohol intake No evidence of withdrawal pt is continued with thiamine and folic acid GERD On PPI DVT PROPHYLAXIS Full code DISPOSITION Patient had recent fall, evidence of fatigue week, and lack of balance PT OT evaluation requested Social service consulted for discharge planning Vital Signs: Date Time Temp Pulse Resp B/P (MAP) Pulse Ox O2 Delivery O2 Flow Rate FiO2 04/25/18 16:00 Room Air 04/25/18 15:27 36.7 65 16 99/66 (77) 97 Room Air 04/25/18 11:48 36.9 18 92/56 (68) 94 04/25/18 08:00 Room Air 04/25/18 07:51 66 91/55 (67) 04/25/18 07:09 36.8 68 16 91/55 (67) 94 04/25/18 04:23 36.8 63 16 89/51 (64) 95 Room Air 04/25/18 00:24 Room Air 04/24/18 22:41 36.6 61 18 94/63 (73) 97 Room Air 04/24/18 19:25 36.6 68 18 96/63 (74) 98 Room Air Lab Results:
[2018-04-24] MEDS: DIVALPROEX 250 MG EXTENDED REL TAB PO SCH (20:56)
[2018-04-24] MEDS: ATORVASTATIN 40 MG TAB PO SCH (20:56)
[2018-04-24] MEDS: DIVALPROEX 500 MG EXTENDED RELEASE TAB PO SCH (20:57)
[2018-04-25] VITALS (7 sets, daily range): BP systolic 89–99; BP diastolic 50–66; PULSE 63–75; TEMP 36.7–36.9; O2SAT 94–97
[2018-04-25] MEDS: CLOPIDOGREL BISULFATE 75 MG TAB PO SCH (07:51)
[2018-04-25] MEDS: ASPIRIN 81 MG ECTAB PO SCH (07:52)
[2018-04-25] MEDS: MULTIVITAMIN TAB PO SCH (07:52)
[2018-04-25] MEDS: PANTOprazole SOD 40 MG TAB PO SCH (07:52)
[2018-04-25] MEDS: FLUOXETINE HCL 20 MG CAP PO SCH (07:52)
[2018-04-25] MEDS: THIAMINE HCL 100 MG TAB PO SCH (07:53)
--- NOTE | 2018-04-25 09:21 | Cardiology Follow-Up ---
Subjective Subjective Date of Service: Apr 25, 2018. Pt evaluation today including: conversation w/ patient, physical exam, chart review, lab review, review of studies, review of inpatient medication list Additional Details: The patient had an uneventful night. He has no complaints today. No further chest pain. His cardiac markers are negative 3. Problem List Medical Problems: (1) Blunt abdominal trauma Status: Acute (2) Closed head injury Status: Acute (3) Contusion of left hand Status: Acute (4) Contusion of left shoulder Status: Acute (5) Contusion of left wrist Status: Acute (6) Contusion of lower back Status: Acute (7) Fall Status: Acute (8) Fall Status: Acute (9) Frequent falls Status: Acute (10) Generalized weakness Status: Acute (11) History of CVA with residual deficit Status: Acute (12) Hypoxia Status: Acute (13) Hypoxia Status: Acute (14) Lactic acidosis Status: Acute (15) Left rib fracture Status: Acute (16) Multiple falls Status: Acute (17) Pneumothorax, left Status: Acute (18) Shoulder contusion Status: Acute (19) Substernal chest pain Status: Acute (20) Vomiting Status: Acute Review of Systems Constitutional: + weakness Neurologic: + weakness, + balance problems Psychiatric: + substance abuse Objective Vital Signs Last Vital Signs Documentation Date Time Temp Pulse Resp B/P (MAP) Pulse Ox O2 Delivery O2 Flow Rate FiO2 04/25/18 08:00 Room Air 04/25/18 07:51 66 91/55 (67) 04/25/18 07:09 36.8 16 94 Physical Exam: General Appearance: no apparent distress, + pertinent finding ENT: hearing grossly normal Respiratory/Chest: no respiratory distress, no accessory muscle use Cardiovascular: regular rate, rhythm, no edema, no murmur Abdomen: normal bowel sounds, non tender, soft Extremities: normal inspection, no pedal edema Neurologic/Psychiatric: alert, normal mood/affect, + pertinent finding Skin: normal color Lymphatic: no adenopathy Assessment and Plan Impression: 1. Atypical chest pain 2. Ischemic cardiomyopathy with an estimated left ventricular ejection fraction of 20% 3. ICD for primary prevention 4. Previous old anterior wall myocardial infarction Recommendations: I would recommend no additional cardiac testing at this time. The patient is currently clinically stable. I would recommend discharge with close outpatient follow-up. I can make these arrangements to have him see his primary health 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 Dr. Travis within the next 1-2 weeks. Medications: Current Inpatient Medications Medications (Trade) Dose Ordered Sig/Ton Route Start Time Stop Time Status Last Admin Dose Admin Enoxaparin Sodium (Lovenox Inj) 40 mg Q24H SC 04/23/18 16:00 05/23/18 15:59 04/24/18 16:28 40 MG Acetaminophen (Tylenol Tab) 650 mg Q4H PRN PO 04/23/18 14:30 05/23/18 14:29 04/25/18 07:56 650 MG Ondansetron HCl (Zofran Inj) 4 mg Q6H PRN IV 04/23/18 14:30 05/23/18 14:29 Aspirin (Ecotrin Tab) 81 mg DAILY PO 04/24/18 09:00 05/24/18 08:59 04/25/18 07:52 81 MG Atorvastatin Calcium (Lipitor Tab) 40 mg HS PO 04/23/18 21:00 05/23/18 20:59 04/24/18 20:56 40 MG Clopidogrel Bisulfate (plAVix TAB) 75 mg DAILY PO 04/24/18 09:00 05/24/18 08:59 04/25/18 07:51 75 MG Digoxin (Lanoxin Tab) 0.125 mg DAILY PO 04/24/18 09:00 05/24/18 08:59 Future Hold Fluoxetine HCl (Prozac Cap) 40 mg DAILY PO 04/24/18 09:00 05/24/18 08:59 04/25/18 07:52 40 MG Furosemide (Lasix Tab) 20 mg Q2D@1700 PO 04/23/18 17:00 05/23/18 16:59 04/23/18 17:35 20 MG Multivitamins (Multivitamin Tab) 1 tab DAILY PO 04/24/18 09:00 05/24/18 08:59 04/25/18 07:52 1 TAB Thiamine HCl (Vitamin B-1 Tab) 100 mg DAILY PO 04/24/18 09:00 05/24/18 08:59 04/25/18 07:53 100 MG Pantoprazole Sodium (Protonix Tab) 40 mg DAILY PO 04/24/18 09:00 05/24/18 08:59 04/25/18 07:52 40 MG Divalproex Sodium (Depakote Extended Rel Tab) 250 mg HS PO 04/23/18 21:00 05/23/18 20:59 04/24/18 20:56 250 MG Divalproex Sodium (Depakote Extended Rel Tab) 1,000 mg HS PO 04/23/18 21:00 05/23/18 20:59 04/24/18 20:57 1,000 MG Ioversol (Optiray 320) 100 ml UD PRN IV 04/23/18 17:00 04/27/18 16:59 Miscellaneous (Iv Fluids Completed) 1 ea PRN PRN N/A 04/23/18 19:30 04/23/19 19:29
[2018-04-25] MEDS: FUROSEMIDE 20 MG TAB PO SCH (16:15)
[2018-04-25] MEDS: ENOXAPARIN 40 MG/0.4 ML SYR SC SCH (16:15)
--- NOTE | 2018-04-25 18:13 | Progress Note ---
Internal Med Progress Note Date of Service: Apr 25, 2018. Provider Documentation: SUBJECTIVE: Feels fine, no complaint of chest pain Denies of any chest discomfort, shortness of breath or palpitation Doing poorly in PT OT evaluation-recommends rehab Requires 1 person assistance, high fall risk OBJECTIVE: Vital Signs-as noted below Exam: General-chronically ill-appearing: No apparent distress Eyes-sclera nonicteric, pupils bilateral equal reactive to light extraocular muscles ENT-moist oral mucosa Neck-neck supple, no jugular venous distention distention Lungs-clear to auscultate, no wheeze or rales Heart-regular S1 and S2 Abdomen-soft nontender, bowel sounds active Extremities-no lower extremity edema Neuro-awake oriented 3 Lab data as noted below. ASSESSMENT & PLAN: CHEST PAIN /HISTORY OF CORONARY ARTERY DISEASE: No further symptoms since admission Left and right heart cath on 09/21/2014: Proximal LAD 60% stenosis, mid LAD 50% stenosis Large branching obtuse marginal 60% lesion Mild luminal irregularities and RCA Right side right ventricular pressure mildly elevated without pulmonary hypertension Presented with chest pain, shortness of breath Has been symptoms free since admission Serial cardiac markers been negative EKG does not show any ST-T wave changes Appreciate input from cardiology Patient symptom is atypical for angina -No evidence of cardiac ischemia -Per cardiology no further cardiac intervention or studies needed- Continue prior cardiac meds pt will continue to follow-up with [facility] cardiology Dr. See SEVERE ISCHEMIC CARDIOMYOPATHY -Due to late presentation with an anterior wall AL Estimated left ventricular ejection fraction of 20%, -Status post ICD placement -Stable volume status, without any evidence of decompensation -No report of AICD firing -Repeat echo 04/24/2018: There is a large sized apical, septal, anteroseptal, anterior, inferior, and lateral wall motion abnormality with hypokinesis to dyskinesis of the segments. The left ventricular myocardial thickness is normal in segments with normal wall motion. There is diffuse septal wall , anterior wall , apical wall thinning in a territory of LAD scar. Left ventricular systolic function is severely reduced. Ejection Fraction = 20-25%. HISTORY OF SEIZURE DISORDER No recent seizure activity Continue Depakote Depakote level improved from 123-> 96 ( with in therapeutic range ) pt is continued with prior Depakote dose HISTORY OF CVA Continue aspirin Plavix and statin HISTORY OF ALCOHOL ABUSE Denies of any recent alcohol intake No evidence of withdrawal pt is continued with thiamine and folic acid GERD On PPI DVT PROPHYLAXIS Full code DISPOSITION Patient had recent fall, evidence of fatigue week, and lack of balance PT OT evaluation appreciated Recommends rehab secondary to poor balance, high fall risk Patient was at [facility] in past Willing for referral to [facility] service consulted for discharge planning Vital Signs: Date Time Temp Pulse Resp B/P (MAP) Pulse Ox O2 Delivery O2 Flow Rate FiO2 04/26/18 08:01 36.8 59 18 94/58 (70) 96 Room Air 04/26/18 03:56 36.6 62 18 89/54 (66) 95 Room Air 04/26/18 00:00 Room Air 04/25/18 23:18 36.8 75 18 91/50 (64) 96 Room Air 04/25/18 18:59 36.8 68 18 90/55 (67) 97 Room Air 04/25/18 16:00 Room Air 04/25/18 15:27 36.7 65 16 99/66 (77) 97 Room Air 04/25/18 11:48 36.9 18 92/56 (68) 94 Lab Results: Results Past 24 Hours Test 04/26/18 05:50 Range/Units White Blood Count 5.51 4.8-10.8 K/uL Red Blood Count 3.66 4.7-6.1 M/uL Hemoglobin 11.6 14.0-18.0 g/dL Hematocrit 35.0 42-52 % Mean Corpuscular Volume 95.6 80-100 fL Mean Corpuscular Hemoglobin 31.7 25-34 pg Mean Corpuscular Hemoglobin Concent 33.1 32-36 g/dl RDW Standard Deviation 55.7 36.4-46.3 fL RDW Coefficient of Variation 15.8 11.5-14.5 % Platelet Count 110 130-400 K/uL Mean Platelet Volume 11.9 7.4-10.4 fL Creatinine 0.91 0.60-1.40 mg/dl Est Creatinine Clear Calc Drug Dose 68.7 ml/min Estimated GFR () 102.9 Estimated GFR (Non- 88.8
[2018-04-25] MEDS: ATORVASTATIN 40 MG TAB PO SCH (20:33)
[2018-04-25] MEDS: DIVALPROEX 250 MG EXTENDED REL TAB PO SCH (20:33)
[2018-04-25] MEDS: DIVALPROEX 500 MG EXTENDED RELEASE TAB PO SCH (20:33)
[2018-04-26 03:56] VITALS: BP 89/54; PULSE 62; TEMP 36.6; O2SAT 95
[2018-04-26 06:12] LABS: HEMOGLOBIN 11.6 g/dL (14.0-18.0); MEAN CELL VOLUME 95.6 fL (80-100); MEAN CORPUSCULAR HEMOGLOBIN 31.7 pg (25-34); MEAN CORPUSCULAR HGB CONC 33.1 g/dl (32-36); MEAN PLATELET VOLUME 11.9 fL (7.4-10.4); PLATELET COUNT 110 K/uL (130-400); RED CELL DISTRIBUTION WIDTH CV 15.8 % (11.5-14.5); RED CELL DISTRIBUTION WIDTH SD 55.7 fL (36.4-46.3); WHITE BLOOD COUNT 5.51 K/uL (4.8-10.8)
[2018-04-26 06:45] LABS: CREATININE 0.91 mg/dl (0.60-1.40)
--- NOTE | 2018-04-26 07:55 | Discharge Instructions ---
Discharge Instructions Date of Service Apr 26, 2018. Admission Reason for Admission: Chest Pain Discharge Discharge Diagnosis / Problem: CHEST PAIN /CORONARY ARTERY DISEASE /AMBULATORY DYSFUNCTION Discharge Goals Goal(s): Decrease discomfort, Improve function, Increase independence, Improve disease control, Diagnostic testing Activity Recommendations Activity Level: Assistance Required Therapies: Physical Therapy, Occupational Therapy . Additional Information Patient informed of condition: Yes Advance Directives: No DNR: No Level of Care: Skilled Communicable Disease: No Prognosis: Stable [place]aña Catheter: No Instructions / Follow-Up Instructions / Follow-Up FOLLOW UP WITH FAMILY PHYSICIAN DR ORONA AT [facility] AFTER DISCHARGE CARDIOLOGY FOLLOW UP WITH DR SOLIZ AT [facility] IN 1-2 WEEKS Current Hospital Diet Patient's current hospital diet: AHA Diet (Heart Healthy), Low Sodium Diet (2gm Na) Discharge Diet Recommended Diet: AHA Diet (Heart Healthy), Low Sodium Diet (2gm Na) Pending Studies Studies pending at discharge: no Medical Emergencies . Who to Call and When: Medical Emergencies: If at any time you feel your situation is an emergency, please call 911 immediately. . Non-Emergent Contact Non-Emergency issues call your: Primary Care Provider . . "Provider Documentation" section prepared by Xenia Guzman. . Core Measure Problem Core Measures: None
[2018-04-26 08:00] VITALS: O2SAT 95
[2018-04-26 08:01] VITALS: BP 94/58; PULSE 59; TEMP 36.8; O2SAT 96
[2018-04-26] MEDS: ASPIRIN 81 MG ECTAB PO SCH (08:54)
[2018-04-26] MEDS: PANTOprazole SOD 40 MG TAB PO SCH (08:54)
[2018-04-26] MEDS: CLOPIDOGREL BISULFATE 75 MG TAB PO SCH (08:54)
[2018-04-26] MEDS: FLUOXETINE HCL 20 MG CAP PO SCH (08:54)
[2018-04-26] MEDS: MULTIVITAMIN TAB PO SCH (08:54)
[2018-04-26] MEDS: THIAMINE HCL 100 MG TAB PO SCH (08:55)
--- NOTE | 2018-04-26 10:35 | Clinical Documentation Query ---
NOT MY PATIENT VERITO Hess : CLINICAL DOCUMENTATION QUERY Documentation includes "severe ischemic cardiomyopathy", with a noted LVEF of 20%. As appropriate, consider documentation as suggested below as the above cannot be assumed to be synonymous by the professional cable braider. Thank you. In your clinical opinion is this patient being managed for: ( ) Chronic systolic CHF ( ) Not Agree ( ) Other explanation of clinical findings (No explanation is considered a No Response) ( ) Unable to determine ( ) Need to Discuss (Phone CDS or qliq) (No discussion is considered a No Response) The medical record reflects the following clinical findings, treatment, and risk factors. Clinical Indicators: As above Treatment: ICD, echocardiogram, Lasix, Digoxin Risk Factors: Age, gender, CAD Please clarify and document your clinical opinion in the progress notes and discharge summary. Terms such as "probable", "suspected", "likely", "questionable", "possible", or "still to be ruled out" are acceptable. IF IN AGREEMENT, YOU MUST DOCUMENT ABOVE DIAGNOSTIC STATEMENT IN DAILY PROGRESS NOTES AND DISCHARGE SUMMARY. This document is not part of the patient's record. Thank You, Tommie Macdonald, WOO [phone]
--- NOTE | 2018-04-26 10:36 | Clinical Documentation Query ---
VERITO Hess : CLINICAL DOCUMENTATION QUERY Documentation includes "severe ischemic cardiomyopathy", with a noted LVEF of 20%. As appropriate, consider documentation as suggested below as the above cannot be assumed to be synonymous by the professional motor brakeman. Thank you. In your clinical opinion is this patient being managed for: ( ) Chronic systolic CHF ( ) Not Agree ( ) Other explanation of clinical findings (No explanation is considered a No Response) ( ) Unable to determine ( ) Need to Discuss (Phone CDS or qliq) (No discussion is considered a No Response) The medical record reflects the following clinical findings, treatment, and risk factors. Clinical Indicators: As above Treatment: ICD, echocardiogram, Lasix, Digoxin Risk Factors: Age, gender, CAD Please clarify and document your clinical opinion in the progress notes and discharge summary. Terms such as "probable", "suspected", "likely", "questionable", "possible", or "still to be ruled out" are acceptable. IF IN AGREEMENT, YOU MUST DOCUMENT ABOVE DIAGNOSTIC STATEMENT IN DAILY PROGRESS NOTES AND DISCHARGE SUMMARY. This document is not part of the patient's record. Thank You, Tommie Macdonald, RN [phone]
[2018-04-26 11:38] VITALS: BP 90/56; PULSE 64; TEMP 36.8; O2SAT 97
--- NOTE | 2018-04-26 11:48 | Clinical Documentation Query ---
LM Mathis : CLINICAL DOCUMENTATION QUERY Documentation includes "severe ischemic cardiomyopathy", with a noted LVEF of 20%. As appropriate, consider documentation as suggested below as the above cannot be assumed to be synonymous by the professional certified medical records coder. Thank you. In your clinical opinion is this patient being managed for: ( x) Chronic systolic CHF ( ) Not Agree ( ) Other explanation of clinical findings (No explanation is considered a No Response) ( ) Unable to determine ( ) Need to Discuss (Phone CDS or qliq) (No discussion is considered a No Response) The medical record reflects the following clinical findings, treatment, and risk factors. Clinical Indicators: As above Treatment: ICD, echocardiogram, Lasix, Digoxin Risk Factors: Age, gender, CAD Please clarify and document your clinical opinion in the progress notes and discharge summary. Terms such as "probable", "suspected", "likely", "questionable", "possible", or "still to be ruled out" are acceptable. IF IN AGREEMENT, YOU MUST DOCUMENT ABOVE DIAGNOSTIC STATEMENT IN DAILY PROGRESS NOTES AND DISCHARGE SUMMARY. This document is not part of the patient's record. Thank You, Tommie Macdonald, WOO [phone]
[2018-04-26 14:23] VITALS: BP 90/56; PULSE 64; TEMP 36.8; O2SAT 97
[2018-04-26] MEDS: ENOXAPARIN 40 MG/0.4 ML SYR SC SCH (15:51)
--- NOTE | 2018-04-27 05:05 | Discharge Summary ---
Discharge Summary Date of Service Apr 27, 2018. Discharge Summary Admission Date: Apr 25, 2018 at 18:44 Discharge Date: Apr 26, 2018 Discharge Disposition: Rehab Principal Diagnosis: CHEST PAIN /CORONARY ARTERY DISEASE /AMBULATORY DYSFUNCTION Consultations: [facility] Medication Reconciliation Continued Medications: Alendronate Sodium (Fosamax) 70 Mg Tab 70 MG PO WK, TAB TAKE THIS MEDICATION EVERY THURSDAY Aspirin Enteric Coated (Ecotrin Or Generic) 81 Mg Tab 81 MG PO DAILY, TAB Atorvastatin (Lipitor) 40 Mg Tab 40 MG PO HS, TAB Clopidogrel Bisulfate (Plavix) 75 Mg Tab 75 MG PO DAILY, TAB Dexlansoprazole (Dexilant) 60 Mg Cap 60 MG PO DAILY Digoxin (Digoxin) 0.125 Mg Tab 0.125 MG PO DAILY Divalproex Sodium (Divalproex Sodium ER) 250 Mg Tabcr 250 MG PO HS Divalproex Sodium (Divalproex Sodium ER) 500 Mg Tabcr 1000 MG PO HS Fluoxetine (Prozac) 40 Mg Cap 40 MG PO DAILY Furosemide (Lasix) 20 Mg Tab 20 MG PO Q2D, TAB Multivitamins (Daily Jeannette) 1 Tab Tab 1 TAB PO DAILY Thiamine Hcl (Vitamin B-1) 100 Mg Tab 100 MG PO DAILY, TAB Referrals At Discharge Follow up Referrals: Senior Solutions Engineer Referral - Within 2 Weeks with Blayne Helm DO Admission Information HPI (per Admitting provider): 63-year-old male who presents the ED with chest pain. Patient reports he was sitting his chair when he developed chest pain across his entire chest. He describes the pain as a tightness. He rates the pain as a number 7 out of 10 at its worst. He reports associated shortness of breath. He then called EMS. He was given 4 baby aspirin and he reports resolution in his chest pain. He denies associated nausea, diaphoresis, lightheadedness, dizziness, syncopal event. Patient reports he otherwise has been feeling well recently. He denies abdominal pain, vomiting, diarrhea. No other recent illnesses fevers or chills. He denies any urinary symptoms. In the ED, patient's initial troponin is negative and EKG does not show any acute ST changes. He is hemodynamically stable. He was given a GI cocktail. Physical Exam (per Admitting): General Appearance: WD/WN, no apparent distress Head: normocephalic, atraumatic Eyes: normal inspection, EOMI, sclerae normal ENT: hearing grossly normal, + pertinent finding (Mucous membranes moist) Neck: supple, no JVD, trachea midline Respiratory/Chest: lungs clear, normal breath sounds, no respiratory distress Cardiovascular: regular rate, rhythm, no edema, normal peripheral pulses Abdomen/GI: normal bowel sounds, non tender, soft, no organomegaly Extremities/Musculoskelatal: normal inspection, no calf tenderness, normal capillary refill Neurologic/Psych: alert, normal mood/affect, oriented x 3, + pertinent finding (Chronic left hemiparesis, no other gross focal deficits noted) Skin: normal color, warm/dry Hospital Course CHEST PAIN /HISTORY OF CORONARY ARTERY DISEASE: No further symptoms since admission Left and right heart cath on 09/21/2014: Proximal LAD 60% stenosis, mid LAD 50% stenosis Large branching obtuse marginal 60% lesion Mild luminal irregularities and RCA Right side right ventricular pressure mildly elevated without pulmonary hypertension Presented with chest pain, shortness of breath Has been symptoms free since admission Serial cardiac markers been negative EKG does not show any ST-T wave changes Appreciate input from cardiology Patient symptom is atypical for angina -No evidence of cardiac ischemia -Per cardiology no further cardiac intervention or studies needed- Continue prior cardiac meds pt will continue to follow-up with [facility] cardiology Dr. See CHRONIC CHF WITH SYSTOLIC DYSFUNCTION /SEVERE ISCHEMIC CARDIOMYOPATHY -Due to late presentation with an anterior wall RI Estimated left ventricular ejection fraction of 20%, -Status post ICD placement -Stable volume status, without any evidence of decompensation -No report of AICD firing -Repeat echo 04/24/2018: There is a large sized apical, septal, anteroseptal, anterior, inferior, and lateral wall motion abnormality with hypokinesis to dyskinesis of the segments. The left ventricular myocardial thickness is normal in segments with normal wall motion. There is diffuse septal wall , anterior wall , apical wall thinning in a territory of LAD scar. Left ventricular systolic function is severely reduced. Ejection Fraction = 20-25%. HISTORY OF SEIZURE DISORDER No recent seizure activity Continue Depakote Depakote level improved from 123-> 96 ( with in therapeutic range ) pt is continued with prior Depakote dose HISTORY OF CVA Continue aspirin Plavix and statin HISTORY OF ALCOHOL ABUSE Denies of any recent alcohol intake No evidence of withdrawal pt is continued with thiamine and folic acid GERD On PPI DVT PROPHYLAXIS Full code DISPOSITION Patient had recent fall, evidence of fatigue week, and lack of balance PT OT evaluation appreciated Recommends rehab secondary to poor balance, high fall risk accepted at [facility] stable to transfer to [facility] today Total time spent on discharge = This includes examination of the patient, discharge planning, medication reconciliation, and communication with other providers. Discharge Instructions Discharge Instructions Date of Service Apr 26, 2018. Admission Reason for Admission: Chest Pain Discharge Discharge Diagnosis / Problem: CHEST PAIN /CORONARY ARTERY DISEASE /AMBULATORY DYSFUNCTION Discharge Goals Goal(s): Decrease discomfort, Improve function, Increase independence, Improve disease control, Diagnostic testing Activity Recommendations Activity Level: Assistance Required Therapies: Physical Therapy, Occupational Therapy . Additional Information Patient informed of condition: Yes Advance Directives: No DNR: No Level of Care: Skilled Communicable Disease: No Prognosis: Stable [place] Catheter: No Instructions / Follow-Up Instructions / Follow-Up FOLLOW UP WITH FAMILY PHYSICIAN DR ORONA AT [facility] AFTER DISCHARGE CARDIOLOGY FOLLOW UP WITH DR SOLIZ AT [facility] IN 1-2 WEEKS Current Hospital Diet Patient's current hospital diet: AHA Diet (Heart Healthy), Low Sodium Diet (2gm Na) Discharge Diet Recommended Diet: AHA Diet (Heart Healthy), Low Sodium Diet (2gm Na) Pending Studies Studies pending at discharge: no Medical Emergencies . Who to Call and When: Medical Emergencies: If at any time you feel your situation is an emergency, please call 911 immediately. . Non-Emergent Contact Non-Emergency issues call your: Primary Care Provider . . "Provider Documentation" section prepared by Xenia Guzman. . Core Measure Problem Core Measures: None
== END 2018-04-26 18:32 | DRG 303 ==
LOC: EDBD 09:47 → C.EDA 09:50 → C.MED 14:30 → ENRESERV 14:51 → OBSVTOIN 04-25 18:44
PROVIDERS: ADMIT Hospitalist; ATTEND Hospitalist
DX: I25.110 Atherosclerotic heart disease of native coronary artery with unstable angina pectoris (principal); I50.22 Chronic systolic (congestive) heart failure; R07.2 Precordial pain; Z82.49 Family history of ischemic heart disease and other diseases of the circulatory system; Z79.82 Long term (current) use of aspirin; G40.909 Epilepsy, unspecified, not intractable, without status epilepticus; F10.21 Alcohol dependence, in remission; K21.9 Gastro-esophageal reflux disease without esophagitis; F12.10 Cannabis abuse, uncomplicated; Z95.810 Presence of automatic (implantable) cardiac defibrillator; I25.2 Old myocardial infarction

== ENCOUNTER 2019-03-14 14:29 | Inpatient (IN) ==
[2019-03-14] MEDS ORDERED: SODIUM CHLORIDE 0.9% 1000ML 500 ML IV ONE (14:38)
--- NOTE | 2019-03-14 15:07 | XRay Report ---
XR chest 1V portable CLINICAL HISTORY: Sepsis dyspnea COMPARISON STUDY: 01/23/2019 FINDINGS: Lungs are clear. Unipolar cardiac pacemaker/defibrillator. Diaphragms are smooth. IMPRESSION: No acute process. The above report was generated using voice recognition software. It may contain grammatical, syntax or spelling errors. Electronically signed by: Minesh Andersen M.D. 03/14/2019 3:05 PM
[2019-03-14 16:46] LABS: Alanine Aminotransferase 16 U/L (12-78); Albumin Globulin Ratio 0.7 (0.9-2); Albumin Level 2.8 gm/dl (3.4-5.0); Alkaline Phosphatase 48 U/L (45-117); Aspartate Aminotransferase 25 U/L (15-37); BUN Creatinine Ratio 15.6 (10-20); Bilirubin,Total 0.3 mg/dl (0.2-1); Blood Urea Nitrogen 14 mg/dl (7-18); Calcium 8.9 mg/dl (8.5-10.1); Carbon Dioxide 25 mmol/L (21-32); Chloride 107 mmol/L (98-107); Creatinine Clr Calc Pharmacy 69.4 ml/min; Est GFR (African American) 104.2; Est GFR (Non-African American) 89.9; Globulin 3.8 gm/dl (2.5-4.0); Glucose 121 mg/dl (70-99); Magnesium 1.9 mg/dl (1.8-2.4); Potassium 4.2 mmol/L (3.5-5.1); Sodium 138 mmol/L (136-145); Total Protein 6.6 gm/dl (6.4-8.2); Troponin I < 0.015 ng/ml (0-0.045)
[2019-03-14 17:46] LABS: INR 1.1 (0.9-1.1); Partial Thromboplastin Time 26.8 Seconds (21.0-31.0); Prothrombin Time 11.4 Seconds (9.0-12.0)
[2019-03-14 18:11] LABS: Appearance Urine Clear (Clear); Bacteria Urine Automated Negative (Negative); Bilirubin Urine Negative (Negative); Blood Urine 2+ (Negative); Color Urine Dark Yellow; Epithelial Cell Urine Auto >30 /lpf (0-5); Glucose Urine UA Negative (Negative); Ketones Urine Trace (Negative); Leukocyte Esterase Urine Negative (Negative); Nitrite Urine Negative (Negative); Protein Urine Negative (Negative); Specific Gravity Urine 1.026 (1.000-1.030); Urobilinogen Urine Negative (Negative); pH Urine 6.5 (4.5-7.5)
[2019-03-14 18:14] LABS: Basophils # (auto) 0.01 K/uL (0-0.2); Basophils % (auto) 0.1 %; Eosinophils # (auto) 0.01 K/uL (0-0.5); Eosinophils % (auto) 0.1 %; Hematocrit (blood only) 34.8 % (42-52); Hemoglobin 11.8 g/dL (14.0-18.0); Immature Granulocytes # (auto) 0.02 K/uL (0.00-0.02); Immature Granulocytes % (auto) 0.2 %; Lymphocytes % (auto) 13.8 %; Mean Corpuscular Hgb Conc 33.9 g/dL (32-36); Mean Corpuscular Volume 94.1 fL (80-100); Mean Platelet Volume 12.5 fL (7.4-10.4); Monocytes # (auto) 0.46 K/uL (0.11-0.59); Monocytes % (auto) 4.5 %; Neutrophils # (auto) 8.23 K/uL (1.4-6.5); Neutrophils % (auto) 81.3 %; Platelet Count 114 K/uL (130-400); RDW Standard Deviation 51.7 fL (36.4-46.3); White Blood Count 10.13 K/uL (4.8-10.8)
[2019-03-14] MEDS ORDERED: PIPERACILL/TAZOBAC CONSULT ACTIVE PRN ×2 (18:22→21:56)
[2019-03-14] MEDS ORDERED: PIPERACILLIN/TAZOBACTAM 4.5 GM/120 ML BAG IV ONE (18:22)
[2019-03-14 18:26] LABS: Digoxin 0.6 ng/ml (0.8-2.0)
[2019-03-14 18:27] LABS: Mucus Urine Present (None Prsent)
--- NOTE | 2019-03-14 18:34 | Emergency Department Note ---
Entered by Katheryn Nowak acting as a scribe for Leo Alcantar DO History of Present Illness General Chief complaint: Illness Time Seen by Provider: 03/14/19 14:30 Source: patient and EMS History of Present Illness Provider complaint: nausea and vomiting Onset (ago): hour(s) (this morning) Location: left and right Pain Consistency: + intermittent Quality: + other (nausea and vomiting) Associated symptoms: + denies other symptoms (urinary symptoms, back pain) and + weakness The patient is a 63 year old male who presents to the Emergency Department with complaints of nausea and vomiting this morning. He denies having any urinary symptoms or back pain. Per EMS, the patient's temperature was 100.9 orally. EMS states that the patient has a pacemaker and was in normal sinus rhythm today. Per EMS, the patient was vomiting this morning and was also weak. EMS states that the patient was hypotensive and was satting at 95%. Per EMS, the patient is weak on his left side from a previous stroke. Home Medications Home Medications Medication Instructions Recorded Confirmed Type alendronate 1 tab PO WK 07/05/18 03/14/19 History aspirin [Aspirin Low Dose] 81 mg PO DAILY 07/05/18 03/14/19 History atorvastatin 40 mg PO HS 07/05/18 03/14/19 History clopidogrel 75 mg PO DAILY 07/05/18 03/14/19 History dexlansoprazole 60 mg PO DAILY 07/05/18 03/14/19 History digoxin 125 mcg PO DAILY 07/05/18 03/14/19 History divalproex 1,000 mg PO HS 07/05/18 03/14/19 History divalproex 250 mg PO HS 07/05/18 03/14/19 History fluoxetine 40 mg PO DAILY 07/05/18 03/14/19 History furosemide 20 mg PO Q2D 07/05/18 03/14/19 History multivitamin 1 tab PO DAILY 07/05/18 03/14/19 History thiamine HCl (vitamin B1) 100 mg PO DAILY 07/05/18 03/14/19 History Allergies Allergy/AdvReac Type Severity Reaction Status Date / Time naproxen Allergy Mild Verified 03/14/19 16:07 morphine Allergy Unknown Verified 03/14/19 16:07 Past Med/Surg History Medical History Thrombocytopenia (Chronic) CAD (coronary artery disease) (Chronic) "Left and right heart catheterization report summary 09/21/2014: Proximal LAD has a 60% stenosis, a long 50% mid LAD disease Large branching OM2 has a 50% lesion The RCA has mild luminal irregularities The right sided pressures are mildly elevated without pulmonary hypertension (mean PA = 22 mm Hg), Mean wedge 13 mm Hg, LVEDP 14 mm hg, CO 4.1 (Ther modilution) " CVA (cerebral infarction) (Chronic) Depressive disorder (Chronic 04/14/12) PUD (peptic ulcer disease) (Chronic) GERD (gastroesophageal reflux disease) (Chronic) Left spastic hemiplegia (Chronic) Osteoporosis (Chronic) Dyslipidemia (Chronic) Ischemic cardiomyopathy (Chronic) April 24, 2018 TTE Interpretation Summary ([facility], Dr. Felix): There is a large sized apical, septal, anteroseptal, anterior, inferior, and lateral wall motion abnormality with hypokinesis to dyskinesis of the segments. The left ventricular myocardial thickness is normal in segments with normal wall motion. There is diffuse septal wall , anterior wall , apical wall thinning in a territory of LAD scar. Left ventricular systolic function is severely reduced. Ejection Fraction = 20-25%. No significant valvular pathology. Carotid stenosis (Chronic) Convulsions (Chronic) "EEG abnormal in 2006- potential seizure focus in R temporal region 09/10/06" Kidney stone (Chronic) S/P ORIF (open reduction internal fixation) fracture (Chronic) "01/07/07 ORIF left tibial plateau fracture " Surgical History Pacemaker (Chronic) Cardiac defibrillator in situ (Chronic) S/P appendectomy (Chronic) Family History Mother , at 68 Myocardial infarction Father , at 68 Myocardial infarction Social History Preferred Language: E[place] Communication Ability: Effective Beliefs That Will Affect Care: None marital status: Current Living Situation: Spouse Feels Safe at Home: Yes Smoking Status: Unknown if ever smoked Hx Alcohol Use: Yes (Patient denies hx of ETOH; however per med records hx of heavy ETOH use) Hx Substance Use: No Review of Systems See HPI for pertinent positives & negatives. and A total of 10 systems reviewed and were otherwise negative Physical Exam Vital Signs Vital Signs - 24 hr 03/14/19 14:34 03/14/19 14:37 03/14/19 15:00 Temperature 37.6 C H Temperature Source Oral Sepsis Recent Fever Within 48 Hours No Sepsis Action Taken by Nursing No Action Required Pulse Rate 75 74 72 Pulse Rate [Right Finger] Pulse Rate from SpO2 Sensor 145 H 72 Pulse Rhythm [Right Finger] Pulse Strength [Right Finger] Respiratory Rate 20 24 25 H Respiratory Effort / Characteristics Non-Labored Spontaneous Respiratory Depth Normal Respiratory Pattern Blood Pressure 85/52 L 92/55 L 99/56 L Blood Pressure [Right Arm] Blood Pressure Mean 63 67 70 Blood Pressure Mean [Right Arm] Blood Pressure Position [Right Arm] Pulse Oximetry 96 93 98 Oxygen Delivery Method Room Air 03/14/19 15:30 03/14/19 16:00 03/14/19 17:30 Temperature Temperature Source Sepsis Recent Fever Within 48 Hours Sepsis Action Taken by Nursing Pulse Rate 80 94 H Pulse Rate [Right Finger] 98 H Pulse Rate from SpO2 Sensor 71 Pulse Rhythm [Right Finger] Regular Pulse Strength [Right Finger] Normal Respiratory Rate 23 21 18 Respiratory Effort / Characteristics Non-Labored Respiratory Depth Normal Respiratory Pattern Regular Blood Pressure 92/56 L 94/55 L Blood Pressure [Right Arm] 141/76 H Blood Pressure Mean 68 68 Blood Pressure Mean [Right Arm] 97 Blood Pressure Position [Right Arm] Lying Pulse Oximetry 95 98 Oxygen Delivery Method Room Air 03/14/19 18:30 Temperature Temperature Source Sepsis Recent Fever Within 48 Hours Sepsis Action Taken by Nursing Pulse Rate Pulse Rate [Right Finger] 82 Pulse Rate from SpO2 Sensor Pulse Rhythm [Right Finger] Pulse Strength [Right Finger] Respiratory Rate 18 Respiratory Effort / Characteristics Respiratory Depth Respiratory Pattern Blood Pressure Blood Pressure [Right Arm] 123/71 Blood Pressure Mean Blood Pressure Mean [Right Arm] 88 Blood Pressure Position [Right Arm] Pulse Oximetry 98 Oxygen Delivery Method GENERAL: Patient is listless but comfortable appearing. Responds to verbal commands well. EYES: The conjunctivae are clear. The pupils are round and reactive. EARS, NOSE, MOUTH AND THROAT: The nose is without any evidence of any deformity. Mucous membranes are dry. Tongue is midline NECK: The neck is nontender and supple. RESPIRATORY: Normal respiratory effort is noted. There is no evidence of wheezing rhonchi or rales to auscultation. CARDIOVASCULAR: Regular rate and rhythm noted. There no murmurs rubs or gallops normal S1 normal S2 GASTROINTESTINAL: The abdomen is moderately distended. No significant tenderness. No guarding or rigidity. MUSCULOSKELETAL/EXTREMITIES: There is no evidence of gross deformity. Full range of motion is noted in the hips and shoulders. SKIN: There is no obvious evidence of any rash. There are no petechiae, pallor or cyanosis noted. NEUROLOGIC: Patient is awake and oriented to person, place, and situation. Procedures Free Text Procedures Central Venous Catheter Indication: Sepsis Catheter type: Triple lumen Location: left femoral vein Verbal consent was obtained after the risks and benefits were explained, including but not limited to pneumothorax, hemothorax, vessel injury, bleeding, scarring, infection, pain, and bone/joint/nerve damage. At this time, the risks of the procedure are less than the risks of NOT performing the procedure. A time out was taken and the correct patient and site identified. The patient was placed in the supine position and the skin was prepped in the standard fashion with chlorhexidine and full sterile drapes applied. The proper landmarks were identified with ultrasound, anesthetized with 1% lidocaine without epinephrine, and the needle was inserted through the skin in the standard fashion. The needle was carefully advanced into blood vessel lumen under ultrasound guidance. The guidewire was placed uneventfully. The vessel is dilated and the catheter was placed. It was sutured into position. There was good blood return from all ports. The patient tolerated the procedure well and there were no complications. Post procedure x-ray was normal. Course 1440: The patient was evaluated in room B8. A history and physical were performed. 1601: The patient is still hypotensive. 1654: I placed a central line in the patient. 1825: I updated the patient who verbalized agreement and understanding of the treatment plan. 1840: I discussed the patient's case with Asha Rosado, admitting to Dr. Mcneill, who will evaluate the patient for further management. Consultations Consultation #1: Asha Rosado Time: 18:40 Administered Medications Discontinued Medications Sodium Chloride (Nss 1000ml) 500 mls @ 999 mls/hr IV .Q31M ONE Stop: 03/14/19 15:08 Last Infusion: 03/14/19 16:47 Dose: 0 mls/hr Documented by: [id number] Admin: 03/14/19 15:04 Dose: 999 mls/hr Documented by: [id number] Piperacillin Sod/Tazobactam Sod (Zosyn) 4.5 gm in 120 mls @ 240 mls/hr IV NOW ONE Stop: 03/14/19 18:51 Last Admin: 03/14/19 18:35 Dose: 240 mls/hr Documented by: [id number] Medical Decision Making Differential Diagnosis Differential diagnosis: Etiologies such as gastroenteritis, food borne illness, infections, appendicitis, diverticulitis, inflammatory bowel disease, obstruction, GI bleed, biliary pathology, cardiac process, intracranial process, as well as others were entertained Medical Records Attestation: I reviewed the patient's medical records. Home Medications Current Medication List: was personally reviewed by me Laboratory Data Attestation: I reviewed the patient's lab results. Result diagrams: 03/14/19 17:06 03/14/19 16:17 Lab Results 03/14/19 03/14/19 03/14/19 Range/Units 15:13 15:13 15:13 WBC Cancelled RBC Cancelled Hgb Cancelled Hct Cancelled MCV Cancelled MCH Cancelled MCHC Cancelled RDW Std Deviation Cancelled RDW Coeff of Pam Cancelled Plt Count Cancelled MPV Cancelled Immature Gran % (Auto) Cancelled Neut % (Auto) Cancelled Lymph % (Auto) Cancelled Braxton % (Auto) Cancelled Eos % (Auto) Cancelled Baso % (Auto) Cancelled Immature Gran # (Auto) Cancelled Neut # (Auto) Cancelled Lymph # (Auto) Cancelled Braxton # (Auto) Cancelled Eos # (Auto) Cancelled Baso # (Auto) Cancelled Absolute Nucleated RBC Cancelled Nucleated RBC % (auto) Cancelled Neutrophils % (Manual) Cancelled Band Neutrophils % Cancelled Lymphocytes % (Manual) Cancelled Prolymphocyte % Cancelled Reactive Lymphs % (Man) Cancelled Monocytes % (Manual) Cancelled Eosinophils % (Manual) Cancelled Basophils % (Manual) Cancelled Metamyelocytes % (Man) Cancelled Myelocytes % (Man) Cancelled Promyelocytes % (Man) Cancelled Blast Cells % (Manual) Cancelled Plasma Cell % (Manual) Cancelled Other Cells % Cancelled Nucleated RBC % Cancelled Neutrophils # (Manual) Cancelled Band Neutrophils # Cancelled Total Absolute Neuts Cancelled Lymphocytes # (Manual) Cancelled Prolymphocyte # Cancelled Reactive Lymphs # Cancelled Total Abs Lymphocytes Cancelled Monocytes # (Manual) Cancelled Eosinophils # (Manual) Cancelled Basophils # (Manual) Cancelled Metamyelocytes # (Man) Cancelled Myelocytes # (Manual) Cancelled Promyelocytes # (Man) Cancelled Blast Cells # (Man) Cancelled Plasma Cell # (Manual) Cancelled Other Cells # Cancelled Nucleated RBCs # (Man) Cancelled Hypersegmented Neuts Cancelled Hyposegmented Neuts Cancelled Hypogranular Neuts Cancelled Large Granular Lymphs Cancelled # Lrg Granular Lymphs Cancelled Hairy Cells Cancelled Smudge Cells Cancelled Toxic Granulation Cancelled Toxic Vacuolation Cancelled Dohle Bodies Cancelled Rosi Rods Cancelled Platelet Estimate Cancelled Hypogranular Platelets Cancelled Clumped Platelets Cancelled Giant Platelets Cancelled Platelet Satelliting Cancelled RBC Morphology Cancelled Polychromasia Cancelled Hypochromasia Cancelled Poikilocytosis Cancelled Basophilic Stippling Cancelled Anisocytosis Cancelled Microcytosis Cancelled Macrocytosis Cancelled Spherocytes Cancelled Pappenheimer Bodies Cancelled Sickle Cells Cancelled Target Cells Cancelled Tear Drop Cells Cancelled Ovalocytes Cancelled Stomatocytes Cancelled [place] Bodies Cancelled Echinocytes Cancelled Acanthocytes (Spur) Cancelled Rouleaux Cancelled RBC Agglutinates Cancelled Schistocytes Cancelled RBC Morph Comment Cancelled ESR Sezary Cell Cancelled PT Cancelled INR Cancelled APTT Cancelled PTT Ratio Cancelled Sodium Cancelled Potassium Cancelled Chloride Cancelled Carbon Dioxide Cancelled Anion Gap Cancelled BUN Cancelled Creatinine Cancelled Est Cr Clr Drug Dosing Cancelled Est GFR ( Amer) Cancelled Est GFR (Non-Af Amer) Cancelled BUN/Creatinine Ratio Cancelled Glucose Cancelled Lactate Calcium Cancelled Magnesium Cancelled Total Bilirubin Cancelled AST Cancelled ALT Cancelled Alkaline Phosphatase Cancelled Troponin I Cancelled C-Reactive Protein Cancelled Total Protein Cancelled Albumin Cancelled Globulin Cancelled Albumin/Globulin Ratio Cancelled Procalcitonin Specimen Hemolysis Urine Color Urine Appearance (Clear) Urine pH (4.5-7.5) Ur Specific [place] (1.000-1.030) Urine Protein (Negative) Urine Glucose (UA) (Negative) Urine Ketones (Negative) Urine Blood (Negative) Urine Nitrite (Negative) Urine Bilirubin (Negative) Urine Urobilinogen (Negative) Ur Leukocyte Esterase (Negative) Urine WBC (Auto) (0-5) /hpf Urine RBC (Auto) (0-4) /hpf U Hyaline Cast (Auto) (0-5) /lpf U Epithel Cells (Auto) (0-5) /lpf Urine Bacteria (Auto) (Negative) Ur Renal Epithelial Cell Urine Mucus (None Prsent) Digoxin Valproic Acid 03/14/19 03/14/19 03/14/19 Range/Units 15:13 15:13 15:13 WBC RBC Hgb Hct MCV MCH MCHC RDW Std Deviation RDW Coeff of Pam Plt Count MPV Immature Gran % (Auto) Neut % (Auto) Lymph % (Auto) Braxton % (Auto) Eos % (Auto) Baso % (Auto) Immature Gran # (Auto) Neut # (Auto) Lymph # (Auto) Braxton # (Auto) Eos # (Auto) Baso # (Auto) Absolute Nucleated RBC Nucleated RBC % (auto) Neutrophils % (Manual) Band Neutrophils % Lymphocytes % (Manual) Prolymphocyte % Reactive Lymphs % (Man) Monocytes % (Manual) Eosinophils % (Manual) Basophils % (Manual) Metamyelocytes % (Man) Myelocytes % (Man) Promyelocytes % (Man) Blast Cells % (Manual) Plasma Cell % (Manual) Other Cells % Nucleated RBC % Neutrophils # (Manual) Band Neutrophils # Total Absolute Neuts Lymphocytes # (Manual) Prolymphocyte # Reactive Lymphs # Total Abs Lymphocytes Monocytes # (Manual) Eosinophils # (Manual) Basophils # (Manual) Metamyelocytes # (Man) Myelocytes # (Manual) Promyelocytes # (Man) Blast Cells # (Man) Plasma Cell # (Manual) Other Cells # Nucleated RBCs # (Man) Hypersegmented Neuts Hyposegmented Neuts Hypogranular Neuts Large Granular Lymphs # Lrg Granular Lymphs Hairy Cells Smudge Cells Toxic Granulation Toxic Vacuolation Dohle Bodies Rosi Rods Platelet Estimate Hypogranular Platelets Clumped Platelets Giant Platelets Platelet Satelliting RBC Morphology Polychromasia Hypochromasia Poikilocytosis Basophilic Stippling Anisocytosis Microcytosis Macrocytosis Spherocytes Pappenheimer Bodies Sickle Cells Target Cells Tear Drop Cells Ovalocytes Stomatocytes [place] Bodies Echinocytes Acanthocytes (Spur) Rouleaux RBC Agglutinates Schistocytes RBC Morph Comment ESR Sezary Cell PT INR APTT PTT Ratio Sodium Potassium Chloride Carbon Dioxide Anion Gap BUN Creatinine Est Cr Clr Drug Dosing Est GFR ( Amer) Est GFR (Non-Af Amer) BUN/Creatinine Ratio Glucose Lactate Cancelled Calcium Magnesium Total Bilirubin AST ALT Alkaline Phosphatase Troponin I C-Reactive Protein Total Protein Albumin Globulin Albumin/Globulin Ratio Procalcitonin Cancelled Specimen Hemolysis Urine Color Urine Appearance (Clear) Urine pH (4.5-7.5) Ur Specific [place] (1.000-1.030) Urine Protein (Negative) Urine Glucose (UA) (Negative) Urine Ketones (Negative) Urine Blood (Negative) Urine Nitrite (Negative) Urine Bilirubin (Negative) Urine Urobilinogen (Negative) Ur Leukocyte Esterase (Negative) Urine WBC (Auto) (0-5) /hpf Urine RBC (Auto) (0-4) /hpf U Hyaline Cast (Auto) (0-5) /lpf U Epithel Cells (Auto) (0-5) /lpf Urine Bacteria (Auto) (Negative) Ur Renal Epithelial Cell Urine Mucus (None Prsent) Digoxin Cancelled Valproic Acid Cancelled 03/14/19 03/14/19 03/14/19 Range/Units 15:13 16:17 16:32 WBC Cancelled RBC Cancelled Hgb Cancelled Hct Cancelled MCV Cancelled MCH Cancelled MCHC Cancelled RDW Std Deviation Cancelled RDW Coeff of Pam Cancelled Plt Count Cancelled MPV Cancelled Immature Gran % (Auto) Cancelled Neut % (Auto) Cancelled Lymph % (Auto) Cancelled Braxton % (Auto) Cancelled Eos % (Auto) Cancelled Baso % (Auto) Cancelled Immature Gran # (Auto) Cancelled Neut # (Auto) Cancelled Lymph # (Auto) Cancelled Braxton # (Auto) Cancelled Eos # (Auto) Cancelled Baso # (Auto) Cancelled Absolute Nucleated RBC Cancelled Nucleated RBC % (auto) Cancelled Neutrophils % (Manual) Cancelled Band Neutrophils % Cancelled Lymphocytes % (Manual) Cancelled Prolymphocyte % Cancelled Reactive Lymphs % (Man) Cancelled Monocytes % (Manual) Cancelled Eosinophils % (Manual) Cancelled Basophils % (Manual) Cancelled Metamyelocytes % (Man) Cancelled Myelocytes % (Man) Cancelled Promyelocytes % (Man) Cancelled Blast Cells % (Manual) Cancelled Plasma Cell % (Manual) Cancelled Other Cells % Cancelled Nucleated RBC % Cancelled Neutrophils # (Manual) Cancelled Band Neutrophils # Cancelled Total Absolute Neuts Cancelled Lymphocytes # (Manual) Cancelled Prolymphocyte # Cancelled Reactive Lymphs # Cancelled Total Abs Lymphocytes Cancelled Monocytes # (Manual) Cancelled Eosinophils # (Manual) Cancelled Basophils # (Manual) Cancelled Metamyelocytes # (Man) Cancelled Myelocytes # (Manual) Cancelled Promyelocytes # (Man) Cancelled Blast Cells # (Man) Cancelled Plasma Cell # (Manual) Cancelled Other Cells # Cancelled Nucleated RBCs # (Man) Cancelled Hypersegmented Neuts Cancelled Hyposegmented Neuts Cancelled Hypogranular Neuts Cancelled Large Granular Lymphs Cancelled # Lrg Granular Lymphs Cancelled Hairy Cells Cancelled Smudge Cells Cancelled Toxic Granulation Cancelled Toxic Vacuolation Cancelled Dohle Bodies Cancelled Rosi Rods Cancelled Platelet Estimate Cancelled Hypogranular Platelets Cancelled Clumped Platelets Cancelled Giant Platelets Cancelled Platelet Satelliting Cancelled RBC Morphology Cancelled Polychromasia Cancelled Hypochromasia Cancelled Poikilocytosis Cancelled Basophilic Stippling Cancelled Anisocytosis Cancelled Microcytosis Cancelled Macrocytosis Cancelled Spherocytes Cancelled Pappenheimer Bodies Cancelled Sickle Cells Cancelled Target Cells Cancelled Tear Drop Cells Cancelled Ovalocytes Cancelled Stomatocytes Cancelled [place] Bodies Cancelled Echinocytes Cancelled Acanthocytes (Spur) Cancelled Rouleaux Cancelled RBC Agglutinates Cancelled Schistocytes Cancelled RBC Morph Comment Cancelled ESR Cancelled Sezary Cell Cancelled PT INR APTT PTT Ratio Sodium 138 Potassium 4.2 Chloride 107 Carbon Dioxide 25 Anion Gap 6.0 BUN 14 Creatinine 0.90 Est Cr Clr Drug Dosing 69.4 Est GFR ( Amer) 104.2 Est GFR (Non-Af Amer) 89.9 BUN/Creatinine Ratio 15.6 Glucose 121 H Lactate Calcium 8.9 Magnesium 1.9 Total Bilirubin 0.3 AST 25 ALT 16 Alkaline Phosphatase 48 Troponin I < 0.015 C-Reactive Protein 1.10 H Total Protein 6.6 Albumin 2.8 L Globulin 3.8 Albumin/Globulin Ratio 0.7 L Procalcitonin Specimen Hemolysis Urine Color Urine Appearance (Clear) Urine pH (4.5-7.5) Ur Specific [place] (1.000-1.030) Urine Protein (Negative) Urine Glucose (UA) (Negative) Urine Ketones (Negative) Urine Blood (Negative) Urine Nitrite (Negative) Urine Bilirubin (Negative) Urine Urobilinogen (Negative) Ur Leukocyte Esterase (Negative) Urine WBC (Auto) (0-5) /hpf Urine RBC (Auto) (0-4) /hpf U Hyaline Cast (Auto) (0-5) /lpf U Epithel Cells (Auto) (0-5) /lpf Urine Bacteria (Auto) (Negative) Ur Renal Epithelial Cell Urine Mucus (None Prsent) Digoxin Valproic Acid 03/14/19 03/14/19 03/14/19 Range/Units 16:32 17:06 17:06 WBC RBC Hgb Hct MCV MCH MCHC RDW Std Deviation RDW Coeff of Pam Plt Count MPV Immature Gran % (Auto) Neut % (Auto) Lymph % (Auto) Braxton % (Auto) Eos % (Auto) Baso % (Auto) Immature Gran # (Auto) Neut # (Auto) Lymph # (Auto) Braxton # (Auto) Eos # (Auto) Baso # (Auto) Absolute Nucleated RBC Nucleated RBC % (auto) Neutrophils % (Manual) Band Neutrophils % Lymphocytes % (Manual) Prolymphocyte % Reactive Lymphs % (Man) Monocytes % (Manual) Eosinophils % (Manual) Basophils % (Manual) Metamyelocytes % (Man) Myelocytes % (Man) Promyelocytes % (Man) Blast Cells % (Manual) Plasma Cell % (Manual) Other Cells % Nucleated RBC % Neutrophils # (Manual) Band Neutrophils # Total Absolute Neuts Lymphocytes # (Manual) Prolymphocyte # Reactive Lymphs # Total Abs Lymphocytes Monocytes # (Manual) Eosinophils # (Manual) Basophils # (Manual) Metamyelocytes # (Man) Myelocytes # (Manual) Promyelocytes # (Man) Blast Cells # (Man) Plasma Cell # (Manual) Other Cells # Nucleated RBCs # (Man) Hypersegmented Neuts Hyposegmented Neuts Hypogranular Neuts Large Granular Lymphs # Lrg Granular Lymphs Hairy Cells Smudge Cells Toxic Granulation Toxic Vacuolation Dohle Bodies Rosi Rods Platelet Estimate Hypogranular Platelets Clumped Platelets Giant Platelets Platelet Satelliting RBC Morphology Polychromasia Hypochromasia Poikilocytosis Basophilic Stippling Anisocytosis Microcytosis Macrocytosis Spherocytes Pappenheimer Bodies Sickle Cells Target Cells Tear Drop Cells Ovalocytes Stomatocytes [place] Bodies Echinocytes Acanthocytes (Spur) Rouleaux RBC Agglutinates Schistocytes RBC Morph Comment ESR 9 Sezary Cell PT INR APTT PTT Ratio Sodium Potassium Chloride Carbon Dioxide Anion Gap BUN Creatinine Est Cr Clr Drug Dosing Est GFR ( Amer) Est GFR (Non-Af Amer) BUN/Creatinine Ratio Glucose Lactate 2.0 Calcium Magnesium Total Bilirubin AST ALT Alkaline Phosphatase Troponin I C-Reactive Protein Total Protein Albumin Globulin Albumin/Globulin Ratio Procalcitonin Specimen Hemolysis Urine Color Urine Appearance (Clear) Urine pH (4.5-7.5) Ur Specific [place] (1.000-1.030) Urine Protein (Negative) Urine Glucose (UA) (Negative) Urine Ketones (Negative) Urine Blood (Negative) Urine Nitrite (Negative) Urine Bilirubin (Negative) Urine Urobilinogen (Negative) Ur Leukocyte Esterase (Negative) Urine WBC (Auto) (0-5) /hpf Urine RBC (Auto) (0-4) /hpf U Hyaline Cast (Auto) (0-5) /lpf U Epithel Cells (Auto) (0-5) /lpf Urine Bacteria (Auto) (Negative) Ur Renal Epithelial Cell Urine Mucus (None Prsent) Digoxin 0.6 L Valproic Acid 67 03/14/19 03/14/19 03/14/19 Range/Units 17:06 17:06 17:06 WBC 10.13 RBC 3.70 L Hgb 11.8 L Hct 34.8 L MCV 94.1 MCH 31.9 MCHC 33.9 RDW Std Deviation 51.7 H RDW Coeff of Pam 15.0 H Plt Count 114 L MPV 12.5 H Immature Gran % (Auto) 0.2 Neut % (Auto) 81.3 Lymph % (Auto) 13.8 Braxton % (Auto) 4.5 Eos % (Auto) 0.1 Baso % (Auto) 0.1 Immature Gran # (Auto) 0.02 Neut # (Auto) 8.23 H Lymph # (Auto) 1.40 Braxton # (Auto) 0.46 Eos # (Auto) 0.01 Baso # (Auto) 0.01 Absolute Nucleated RBC Nucleated RBC % (auto) Neutrophils % (Manual) Band Neutrophils % Lymphocytes % (Manual) Prolymphocyte % Reactive Lymphs % (Man) Monocytes % (Manual) Eosinophils % (Manual) Basophils % (Manual) Metamyelocytes % (Man) Myelocytes % (Man) Promyelocytes % (Man) Blast Cells % (Manual) Plasma Cell % (Manual) Other Cells % Nucleated RBC % Neutrophils # (Manual) Band Neutrophils # Total Absolute Neuts Lymphocytes # (Manual) Prolymphocyte # Reactive Lymphs # Total Abs Lymphocytes Monocytes # (Manual) Eosinophils # (Manual) Basophils # (Manual) Metamyelocytes # (Man) Myelocytes # (Manual) Promyelocytes # (Man) Blast Cells # (Man) Plasma Cell # (Manual) Other Cells # Nucleated RBCs # (Man) Hypersegmented Neuts Hyposegmented Neuts Hypogranular Neuts Large Granular Lymphs # Lrg Granular Lymphs Hairy Cells Smudge Cells Toxic Granulation Toxic Vacuolation Dohle Bodies Rosi Rods Platelet Estimate Hypogranular Platelets Clumped Platelets Giant Platelets Platelet Satelliting RBC Morphology Polychromasia Hypochromasia Poikilocytosis Basophilic Stippling Anisocytosis Microcytosis Macrocytosis Spherocytes Pappenheimer Bodies Sickle Cells Target Cells Tear Drop Cells Ovalocytes Stomatocytes [place] Bodies Echinocytes Acanthocytes (Spur) Rouleaux RBC Agglutinates Schistocytes RBC Morph Comment ESR Sezary Cell PT 11.4 INR 1.1 APTT 26.8 PTT Ratio 1.0 Sodium Potassium Chloride Carbon Dioxide Anion Gap BUN Creatinine Est Cr Clr Drug Dosing Est GFR ( Amer) Est GFR (Non-Af Amer) BUN/Creatinine Ratio Glucose Lactate Calcium Magnesium Total Bilirubin AST ALT Alkaline Phosphatase Troponin I C-Reactive Protein Total Protein Albumin Globulin Albumin/Globulin Ratio Procalcitonin < 0.05 Specimen Hemolysis Urine Color Urine Appearance (Clear) Urine pH (4.5-7.5) Ur Specific [place] (1.000-1.030) Urine Protein (Negative) Urine Glucose (UA) (Negative) Urine Ketones (Negative) Urine Blood (Negative) Urine Nitrite (Negative) Urine Bilirubin (Negative) Urine Urobilinogen (Negative) Ur Leukocyte Esterase (Negative) Urine WBC (Auto) (0-5) /hpf Urine RBC (Auto) (0-4) /hpf U Hyaline Cast (Auto) (0-5) /lpf U Epithel Cells (Auto) (0-5) /lpf Urine Bacteria (Auto) (Negative) Ur Renal Epithelial Cell Urine Mucus (None Prsent) Digoxin Valproic Acid 03/14/19 Range/Units 17:45 WBC RBC Hgb Hct MCV MCH MCHC RDW Std Deviation RDW Coeff of Pam Plt Count MPV Immature Gran % (Auto) Neut % (Auto) Lymph % (Auto) Braxton % (Auto) Eos % (Auto) Baso % (Auto) Immature Gran # (Auto) Neut # (Auto) Lymph # (Auto) Braxton # (Auto) Eos # (Auto) Baso # (Auto) Absolute Nucleated RBC Nucleated RBC % (auto) Neutrophils % (Manual) Band Neutrophils % Lymphocytes % (Manual) Prolymphocyte % Reactive Lymphs % (Man) Monocytes % (Manual) Eosinophils % (Manual) Basophils % (Manual) Metamyelocytes % (Man) Myelocytes % (Man) Promyelocytes % (Man) Blast Cells % (Manual) Plasma Cell % (Manual) Other Cells % Nucleated RBC % Neutrophils # (Manual) Band Neutrophils # Total Absolute Neuts Lymphocytes # (Manual) Prolymphocyte # Reactive Lymphs # Total Abs Lymphocytes Monocytes # (Manual) Eosinophils # (Manual) Basophils # (Manual) Metamyelocytes # (Man) Myelocytes # (Manual) Promyelocytes # (Man) Blast Cells # (Man) Plasma Cell # (Manual) Other Cells # Nucleated RBCs # (Man) Hypersegmented Neuts Hyposegmented Neuts Hypogranular Neuts Large Granular Lymphs # Lrg Granular Lymphs Hairy Cells Smudge Cells Toxic Granulation Toxic Vacuolation Dohle Bodies Rosi Rods Platelet Estimate Hypogranular Platelets Clumped Platelets Giant Platelets Platelet Satelliting RBC Morphology Polychromasia Hypochromasia Poikilocytosis Basophilic Stippling Anisocytosis Microcytosis Macrocytosis Spherocytes Pappenheimer Bodies Sickle Cells Target Cells Tear Drop Cells Ovalocytes Stomatocytes [place] Bodies Echinocytes Acanthocytes (Spur) Rouleaux RBC Agglutinates Schistocytes RBC Morph Comment ESR Sezary Cell PT INR APTT PTT Ratio Sodium Potassium Chloride Carbon Dioxide Anion Gap BUN Creatinine Est Cr Clr Drug Dosing Est GFR ( Amer) Est GFR (Non-Af Amer) BUN/Creatinine Ratio Glucose Lactate Calcium Magnesium Total Bilirubin AST ALT Alkaline Phosphatase Troponin I C-Reactive Protein Total Protein Albumin Globulin Albumin/Globulin Ratio Procalcitonin Specimen Hemolysis Urine Color Dark Yellow Urine Appearance Clear (Clear) Urine pH 6.5 (4.5-7.5) Ur Specific [place] 1.026 (1.000-1.030) Urine Protein Negative (Negative) Urine Glucose (UA) Negative (Negative) Urine Ketones Trace H (Negative) Urine Blood 2+ H (Negative) Urine Nitrite Negative (Negative) Urine Bilirubin Negative (Negative) Urine Urobilinogen Negative (Negative) Ur Leukocyte Esterase Negative (Negative) Urine WBC (Auto) 1-5 (0-5) /hpf Urine RBC (Auto) 10-30 H (0-4) /hpf U Hyaline Cast (Auto) 1-5 (0-5) /lpf U Epithel Cells (Auto) >30 H (0-5) /lpf Urine Bacteria (Auto) Negative (Negative) Ur Renal Epithelial Cell Not Reportable Urine Mucus Present A (None Prsent) Digoxin Valproic Acid Imaging Data Radiologist's Impression: Radiology results as stated below per my review and the radiologist's interpretation: XR chest 1V portable CLINICAL HISTORY: Sepsis dyspnea COMPARISON STUDY: 01/23/2019 FINDINGS: Lungs are clear. Unipolar cardiac pacemaker/defibrillator. Diaphragms are smooth. IMPRESSION: No acute process. The above report was generated using voice recognition software. It may contain grammatical, syntax or spelling errors. Electronically signed by: Minesh Andersen M.D. 03/14/2019 3:05 PM ECG Data Attestation: I personally reviewed and interpreted this ECG as follows: Indication: vomiting Rate (beats per minute): 72 Rhythm: normal sinus Findings: + other (apical T wave) and + Q waves (Anterior); no PAC, no PVC and no ectopy Comparison ECG Date: from (01/23/19) Change: no significant change Blood Pressure Blood Pressure Findings: Low blood pressure MDM Narrative The patient is a 63-year-old male who presented to the emergency department for fever. The patient presented to the emergency department via ambulance. He does have a significant heart history so fluids were limited in resuscitation. He was found to have hypotension. He was treated with IV fluids. He was also treated for empiric sepsis with Zosyn. I discussed the patient's laboratory and radiographic studies with him. He was feeling much better on subsequent reevaluation. The patient was very difficult to obtain laboratory studies from and given his persistence of hypotension a central line was placed for further resuscitation as well as blood draws. The patient was significantly improved on reevaluation. I discussed his case with the on-call [facility] hospitalist group. They have agreed to evaluate the patient in the emergency department for further management and disposition. Impression & Plan Fever, Sepsis Discharge Plan Visit Data Chief Complaint: Illness ED Provider: Leo Alcantar Discharge Problem: Fever, Sepsis Patient Disposition: Being Evaluated by Hospitalist Forms Stand Alone Forms: [facility] Prescriptions Prescriptions: No Action multivitamin Tablet 1 tab PO DAILY RF: 0 fluoxetine 40 mg capsule 40 mg PO DAILY RF: 0 atorvastatin 40 mg tablet 40 mg PO HS RF: 0 alendronate 70 mg tablet 1 tab PO WK RF: 0 thiamine HCl (vitamin B1) 100 mg Tablet 100 mg PO DAILY RF: 0 clopidogrel 75 mg tablet 75 mg PO DAILY RF: 0 aspirin [Aspirin Low Dose] 81 mg Tablet,Delayed Release (Dr/Ec) 81 mg PO DAILY RF: 0 divalproex 500 mg tablet extended release 24 hr 1,000 mg PO HS RF: 0 digoxin 125 mcg tablet 125 mcg PO DAILY RF: 0 furosemide 20 mg tablet 20 mg PO Q2D RF: 0 divalproex 250 mg tablet extended release 24 hr 250 mg PO HS RF: 0 dexlansoprazole 60 mg capsule,biphase delayed releas 60 mg PO DAILY RF: 0 Referrals Referrals: Richardson Sterling MD [Primary Care Provider] - Discharge Problem: Fever Qualifiers: Fever type: unspecified Qualified Code(s): R50.9 - Fever, unspecified Sepsis Qualifiers: Sepsis type: sepsis due to unspecified organism Qualified Code(s): A41.9 - Sepsis, unspecified organism The scribe's documentation has been prepared under my direction and personally reviewed by me in its entirety. I confirm that the note above accurately reflects all work, treatment, procedures, and medical decision making performed by me.
--- NOTE | 2019-03-14 19:51 | History & Physical Report ---
Date of Service March 14, 2019 Assessment & Plan (1) Febrile illness, acute: (2) Nausea & vomiting: This is a 63-year-old male with significant past medical history of Chronic Systolic CHF secondary to ischemic cardiomyopathy EF 20-25%, CAD, history of CVA with spastic left hemiparesis, HLD, GERD, thrombocytopenia, chronic ambulatory dysfunction secondary to CVA, hx of seizure disorder, carotid artery stenosis, hx of ETOH abuse who presents to [facility] secondary to n ausea, vomiting, ill feeling x1 day. Pt does not meet SIRS/Sepsis Criteria on admission WBC 10.13, RR 18-25, HR 80s, SBP initally 85/52 now 112/73 Pt with known chronic hypotension - SBP ranges 100s/50-60s Lactate 2.0, procalcitonin WNL, he is nontoxic-appearing In ED patient received 500 mL fluid bolus with improvement in blood pressures Blood and urine cultures were obtained Received broad-spectrum antibiotic IV Zosyn Left femoral central line placed due to poor venous access Febrile illness of unknown origin -possible gastroenteritis, viral syndrome, bacteremia, less likely UTI (UA appears negative) admit to PCU Continue broad-spectrum IV antibiotics Zosyn Await blood and urine culture Supportive care with antiemetics Gentle IVF D5 and lactated Ringer's 80 cc/h x 1 L Obtain US Abdomen Pt with Central Line assess - remove as early as possible and try to obtain peripheral venous access (3) Microscopic hematuria: Patient was Therefore may be secondary to trauma Also history of nephrolithiasis Recommend repeat urinalysis prior to discharge (4) Chronic systolic CHF (congestive heart failure): 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 need to re initiate (home regimen lasix 20mg q48hr) AICD in place daily weights strict I and O Heart Healthy, Low NA diet (5) CAD (coronary artery disease): currently asymptomatic, no CP/SOB Continue ASA, Statin, Plavix not on BB or COLIN AICD in place (6) History of CVA with residual deficit: patient with chronic spastic LHP, uses quad cane for ambulation continue ASA, Statin, Plavix (7) Seizure disorder: Continue Depakote Depakote level WNL (8) Thrombocytopenia: Platelet count stable 114 Monitor CBC (9) GERD (gastroesophageal reflux disease): Continue PPI (10) DVT prophylaxis: Pt high risk for VTE Lovenox, SCDS/Teds Pt chronic thrombocytopenia, PLT 114, monitor closely for s/sx of bleeding Disposition: Admit to PCU; case management consulted may require acute vs sub acute rehab post hospitalization Follow Up: with PCP Dr. Bañuelos after discharge Patient was seen and examined in collaboration with Dr. Mcneill, please see addendum Starting 03/15/2019 patient will be under the care of Dr. Larry History of Present Illness Chief Complaint: N/V and ill feeling x 1 day. Primary Care Provider: Richardson Sterling MD This is a 63-year-old male with significant past medical history of Chronic Systolic CHF secondary to ischemic cardiomyopathy EF 20-25%, CAD, history of CVA with spastic left hemiparesis, HLD, GERD, thrombocytopenia, chronic ambulatory dysfunction secondary to CVA, hx of seizure disorder, carotid artery stenosis, hx of ETOH abuse who presents to [facility] secondary to nausea, vomiting, ill feeling x1 day. Per patient's ex- he woke this morning at approximately 4 AM alerting her that he did not feel well and was shaking. She felt shaking was secondary to overall being cold and his known tremors. Approximately 1130 to noon she received a call from caregiver who stated patient was having difficulty walking to bathroom and overall sick to stomach. When ex- returned home patient had episodes of emesis x2. Temperature was 100.4 axillary after emesis and overall felt feverish. Current ly patient states he feels tired. He elicits he had overall sick feeling in stomach today, nausea and emesis. He denies any chills, sweats, lightheadedness, dizziness, syncope, chest pain, shortness of breath, cough, URI symptoms, diarrhea, abdominal pain, dysuria, increased frequency urgency with urination. His appetite has been okay and he follows 2 L fluid restriction. Per patient's ex- he has been participating in outpatient therapy due to weakness/difficulty walking . Allergies Allergy/AdvReac Type Severity Reaction Status Date / Time naproxen Allergy Mild Verified 03/14/19 16:07 morphine Allergy Unknown Verified 03/14/19 16:07 Home Medications Home Medications Medication Instructions Recorded Confirmed Type alendronate 1 tab PO WK 07/05/18 03/14/19 History aspirin [Aspirin Low Dose] 81 mg PO DAILY 07/05/18 03/14/19 History atorvastatin 40 mg PO HS 07/05/18 03/14/19 History clopidogrel 75 mg PO DAILY 07/05/18 03/14/19 History dexlansoprazole 60 mg PO DAILY 07/05/18 03/14/19 History digoxin 125 mcg PO DAILY 07/05/18 03/14/19 History divalproex 1,000 mg PO HS 07/05/18 03/14/19 History divalproex 250 mg PO HS 07/05/18 03/14/19 History fluoxetine 40 mg PO DAILY 07/05/18 03/14/19 History furosemide 20 mg PO Q2D 07/05/18 03/14/19 History multivitamin 1 tab PO DAILY 07/05/18 03/14/19 History thiamine HCl (vitamin B1) 100 mg PO DAILY 07/05/18 03/14/19 History Past Med/Surg History Medical History Thrombocytopenia (Chronic) CAD (coronary artery disease) (Chronic) "Left and right heart catheterization report summary 09/21/2014: Proximal LAD has a 60% stenosis, a long 50% mid LAD disease Large branching OM2 has a 50% lesion The RCA has mild luminal irregularities The right sided pressures are mildly elevated without pulmonary hypertension (mean PA = 22 mm Hg), Mean wedge 13 mm Hg, LVEDP 14 mm hg, CO 4.1 (Thermodilution) " CVA (cerebral infarction) (Chronic) Depressive disorder (Chronic 04/14/12) PUD (peptic ulcer disease) (Chronic) GERD (gastroesophageal reflux disease) (Chronic) Left spastic hemiplegia (Chronic) Osteoporosis (Chronic) Dyslipidemia (Chronic) Ischemic cardiomyopathy (Chronic) April 24, 2018 TTE Interpretation Summary ([facility], Dr. Felix): There is a large sized apical, septal, anteroseptal, anterior, inferior, and lateral wall motion abnormality with hypokinesis to dyskinesis of the segments. The left ventricular myocardial thickness is normal in segments with normal wall motion. There is diffuse septal wall , anterior wall , apical wall thinning i n a territory of LAD scar. Left ventricular systolic function is severely reduced. Ejection Fraction = 20-25%. No significant valvular pathology. Carotid stenosis (Chronic) Convulsions (Chronic) "EEG abnormal in 2007- potential seizure focus in R temporal region 09/10/06" Kidney stone (Chronic) S/P ORIF (open reduction internal fixation) fracture (Chronic) "01/07/07 ORIF left tibial plateau fracture " Surgical History Pacemaker (Chronic) Cardiac defibrillator in situ (Chronic) S/P appendectomy (Chronic) Family History Mother , at 68 Myocardial infarction Father , at 68 Myocardial infarction Social History Preferred Language: Palestinian Communication Ability: Effective Account Contact Associate Required: No Beliefs That Will Affect Care: None marital status: Current Living Situation: Spouse Current Living Situation Comment: Lives with ex- and her son; has caregivers come in during the week Other Information That Helps Us Care for You: No other: Walks with a hemiwalker Feels Safe at Home: Yes Safety Concerns: Feels Safe At This Time Smoking Status: Unknown if ever smoked Hx Alcohol Use: No Hx Substance Use: No Review of Systems Review of Systems: As noted per HPI, 10 systems reviewed and negative unless noted above. Physical Exam Physical Exam: Gen:Chronically ill appearing male who appears older than stated age, unkempt, lying in bed, NAD, tremor noted, answers questions appropriately Head: Normocephalic, Atraumatic Eyes: Sclera normal, no conjunctival injection, PERRLA, EOMI ENT: Gross hearing intact, normal pharynx, mucous membranes dry Neck: supple, no adenopathy, No JVD, no bruit, Resp: Clear to auscultation b/l, no wheeze, rales, rhonchi. 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 Extremities: No edema bilaterally Skin: warm, moist, no rash, mild turgor, cap refill < 2sec Neuro: Alert and oriented to person, place, year but not to month and president, speech normal, flat mood/affect, cran nerve 2-12 intact grossly : Positive [place] in place draining clear yellow urine Left femoral central venous access noted Results & Data Vital Signs (Past 12 Hours) Vital Signs Temp Pulse Pulse Resp BP BP Pulse Ox 03/14/19 19:28 36.5 C 85 18 105/55 L 98 03/14/19 18:30 82 18 123/71 98 03/14/19 17:30 98 H 18 141/76 H 98 03/14/19 16:00 94 H 21 94/55 L 95 03/14/19 15:30 80 23 92/56 L 03/14/19 15:00 72 25 H 99/56 L 98 03/14/19 14:37 74 24 92/55 L 93 03/14/19 14:34 37.6 C H 75 20 85/52 L 96 Laboratory Results Short CBC 03/14/19 03/14/19 03/14/19 Range/Units 15:13 16:32 17:06 WBC Cancelled Cancelled 10.13 Hgb Cancelled Cancelled 11.8 L Hct Cancelled Cancelled 34.8 L Plt Count Cancelled Cancelled 114 L BMP 03/14/19 03/14/19 15:13 16:17 Sodium Cancelled 138 Potassium Cancelled 4.2 Chloride Cancelled 107 Carbon Dioxide Cancelled 25 BUN Cancelled 14 Creatinine Cancelled 0.90 Glucose Cancelled 121 H Calcium Cancelled 8.9 Cardiac Enzymes 03/14/19 03/14/19 Range/Units 15:13 16:17 Troponin I Cancelled < 0.015 Liver Function 03/14/19 03/14/19 Range/Units 15:13 16:17 Total Bilirubin Cancelled 0.3 AST Cancelled 25 ALT Cancelled 16 Alkaline Phosphatase Cancelled 48 Albumin Cancelled 2.8 L Urine 03/14/19 Range/Units 17:45 Urine Color Dark Yellow Urine Appearance Clear (Clear) Urine pH 6.5 (4.5-7.5) Ur Specific [place] 1.026 (1.000-1.030) Urine Protein Negative (Negative) Urine Glucose (UA) Negative (Negative) Diagnostic Findings CXR: FINDINGS: Lungs are clear. Unipolar cardiac pacemaker/defibrillator. Diaphragms are smooth. IMPRESSION: No acute process. Medications Administered Discontinued Medications Sodium Chloride (Nss 1000ml) 500 mls @ 999 mls/hr IV .Q31M ONE Stop: 03/14/19 15:08 Last Infusion: 03/14/19 16:47 Dose: 0 mls/hr Documented by: [id number] Admin: 03/14/19 15:04 Dose: 999 mls/hr Documented by: [id number] Piperacillin Sod/Tazobactam Sod (Zosyn) 4.5 gm in 120 mls @ 240 mls/hr IV NOW ONE Stop: 03/14/19 18:51 Last Admin: 03/14/19 18:35 Dose: 240 mls/hr Documented by: [id number] ECG Rate (beats per minute): 72 Rhythm: sinus rhythm Code Status & VTE Plan Code Status Full Code VTE Prophylaxis Plan VTE Prophylaxis will be ordered: Yes Supervising Physician Co-Signing Physician Notes HISTORY: Record reviewed. Patient interviewed and examined. Care coordinated with Asha Parekh PA-C. Please refer to her documentation for patient's history. Briefly, 63-year-old male with history of ischemic heart disease, chronic systolic heart failure, cerebrovascular disease, and other problems. Presented to the ED with low-grade fever, nausea, vomiting. No abdominal pain. No hematemesis, melena, hematochezia. Mild dysuria, no gross hematuria. Systolic BP in the ED was 85. Central line placed via left femoral approach and bolus of normal saline was administered. Patient's baseline systolic BP runs from the 90s to the low 100s. EXAM: General- no distress Lungs- clear to auscultation; no respiratory distress Cardiovascular- RRR; I/ systolic murmur LSB; no gallop; no JVD; no pretibial edema Abdomen- + bowel sounds, soft, nontender Extremities- no cyanosis; no calf tenderness; left femoral central line. Neuro- alert, oriented; LUE weakness Skin- warm & dry DATA: Hemoglobin 11.8, white count 10,130, platelet count 114,000. Normal electrolyte, BUN 14, creatinine 0.9, glucose 121. Serum lactate 2. C-reactive protein 1.1. Procalcitonin less than 0.05. UA showed trace ketones, 2+ blood, 10-30 RBCs, negative nitrites, negative leukocyte esterase, 1-5 WBCs. Other lab studies as noted. Chest x-ray showed pacemaker, no acute process. Abdominal ultrasound demonstrated cholelithiasis without signs of cholecystitis, no apparent urinary tract calculi, no ascites. EKG performed at 1456 reviewed and demonstrated normal sinus rhythm at 70/ minute, age-indeterminate anteroseptal infarct. ASSESSMENT AND PLAN: Febrile illness associated with nausea and vomiting. Source of fever unclear. No infiltrates on chest x-ray. Ultrasound demonstrates cholelithiasis without signs of cholecystitis. Does not appear to have a urinary tract infection. No urinary calculi noted on ultrasound. May have a viral gastroenteritis. Patient does not appear to be septic. Did not meet SIRS at the time of presentation. Systolic BP was 85, but this is only slightly lower than his baseline systolic blood pressure that runs between the 90s to the low 100s. White count, lactate, and procalcitonin normal. Blood cultures and urine cultures were obtained. Patient was started on intravenous piperacillin/tazobactam which will be continued pending culture results. UA demonstrates microscopic hematuria. No apparent urinary tract infection or urinary tract calculi. Hematuria may be secondary to [place] catheter insertion. Check repeat UA after removal of catheter and pursue further evaluation if hematuria persists. Poor venous access. Left femoral central line placed by ED provider. Reattempt peripheral IV access after administration of IV fluids and remove central line as soon as possible. Please refer to CHARU Parekh's documentation for discussion of other issues. (1) CAD (coronary artery disease) Associated angina: without angina Coronary Disease-Associated Artery/Lesion type: [place] artery [place] vs. transplanted heart: [place] heart Qualified Code(s): I25.10 - Atherosclerotic heart disease of [place] coronary artery without angina pectoris (2) GERD (gastroesophageal reflux disease) Esophagitis presence: without esophagitis Qualified Code(s): K21.9 - Gastro- esophageal reflux disease without esophagitis
[2019-03-14] MEDS ORDERED: POLYETHYLENE (MIRALAX) 17 GM PACK PO PRN (21:56)
[2019-03-14] MEDS ORDERED: ALUMINUM/MAGNESIUM SUSP 30 ML UDC PO PRN (21:56)
[2019-03-14] MEDS ORDERED: ONDANSETRON INJ 2 MG/ML 2 ML VIAL IV PRN (21:56)
[2019-03-14] MEDS ORDERED: D5W AND LACTATED RINGERS 1,000 ML IV SCH (21:56)
[2019-03-14] MEDS ORDERED: ACETAMINOPHEN 325 MG TAB PO PRN (21:56)
[2019-03-14] MEDS ORDERED: MAGNESIUM HYDROXIDE SUSP 30 ML UDC PO PRN (21:56)
--- NOTE | 2019-03-14 22:44 | Ultrasound Report ---
US abdomen complete CLINICAL HISTORY: N/V, eval for hydro/nephrolithiasis COMPARISON STUDY: CT of the abdomen and pelvis July 05, 2018. FINDINGS: No hepatic lesions are identified. There is no biliary ductal dilatation. The common bile d uct measures 3 mm in caliber. The pancreas is obscured as is the inferior vena cava. The caliber of t he abdominal aorta is normal. There is no ascites. There are gallstones within the gallbladder. No so nographic Mckinney sign was elicited. There is no gallbladder wall thickening or pericholecystic fluid. The right kidney measures 9.2 cm and the left measures 9.8 cm. No hydronephrosis is present. Note is made of moderate bilateral renal cortical thinning. No calculi are identified by sonography. A 1.7 c m cyst within the right kidney is noted. The size of the spleen is normal. IMPRESSION: 1. No hydronephrosis. 2. Cholelithiasis. No sonographic evidence for acute cholecystitis. 3. Obscured pancreas. Electronically signed by: Krzysztof Sneed M.D. 03/14/2019 10:43 PM
[2019-03-15] MEDS: ATORVASTATIN 40 MG TAB PO SCH ×2 (00:11→20:53)
[2019-03-15] MEDS: PIPERACILLIN/TAZOBACTAM 3.375 GM in DEXTROSE 5% 100 ML IV SCH ×3 (00:11→16:51)
[2019-03-15] MEDS: DIVALPROEX EXTENDED RELEASE 250 MG TABCR PO SCH ×2 (00:12→20:53)
[2019-03-15] MEDS: DIVALPROEX EXTENDED RELEASE 500 MG TAB PO SCH ×2 (00:12→20:53)
[2019-03-15 06:23] LABS: Basophils # (auto) 0.01 K/uL (0-0.2); Basophils % (auto) 0.1 %; Hematocrit (blood only) 33.8 % (42-52); Hemoglobin 11.5 g/dL (14.0-18.0); Immature Granulocytes # (auto) 0.01 K/uL (0.00-0.02); Immature Granulocytes % (auto) 0.1 %; Lymphocytes # (auto) 1.41 K/uL (1.2-3.4); Lymphocytes % (auto) 17.7 %; Mean Corpuscular Volume 93.9 fL (80-100); Mean Platelet Volume 11.7 fL (7.4-10.4); Monocytes # (auto) 0.87 K/uL (0.11-0.59); Monocytes % (auto) 10.9 %; Neutrophils # (auto) 5.65 K/uL (1.4-6.5); Neutrophils % (auto) 71.2 %; Platelet Count 100 K/uL (130-400); RDW Coefficient of Variation 14.9 % (11.5-14.5); RDW Standard Deviation 51.6 fL (36.4-46.3); White Blood Count 7.95 K/uL (4.8-10.8)
[2019-03-15 07:16] LABS: BUN Creatinine Ratio 9.3 (10-20); Calcium 8.4 mg/dl (8.5-10.1); Creatinine Clr Calc Pharmacy 74.4 ml/min; Est GFR (African American) 107.2; Est GFR (Non-African American) 92.5; Potassium 3.4 mmol/L (3.5-5.1)
[2019-03-15] MEDS: THIAMINE HCL 100 MG TAB PO SCH (09:04)
[2019-03-15] MEDS: ASPIRIN 81 MG ECTAB PO SCH (09:04)
[2019-03-15] MEDS: MULTIVITAMIN TAB PO SCH (09:04)
[2019-03-15] MEDS: FLUOXETINE HCL 20 MG CAP PO SCH (09:05)
[2019-03-15] MEDS: PANTOprazole 40 MG TAB PO SCH (09:05)
[2019-03-15] MEDS: ENOXAPARIN INJ 40 MG/0.4 ML SYR SQ SCH (09:05)
[2019-03-15] MEDS: CLOPIDOGREL BISULFATE 75 MG TAB PO SCH (09:05)
[2019-03-15] MEDS: DIGOXIN 0.125 MG TAB PO SCH (16:51)
--- NOTE | 2019-03-15 17:00 | Hospitalist Progress Note ---
Date of Service March 15, 2019 Assessment & Plan (1) Febrile illness, acute: (2) Nausea & vomiting: "This is a 63-year-old male with significant past medical history of Chronic Systolic CHF secondary to ischemic cardiomyopathy EF 20-25%, CAD, history of CVA with spastic left hemiparesis, HLD, GERD, thrombocytopenia, chronic ambulatory dysfunction secondary to CVA, hx of seizure disorder, carotid artery stenosis, hx of ETOH abuse who presents to [facility] secondary to nausea, vomiting, ill feeling x1 day. Pt does not meet SIRS/Sepsis Criteria on admission WBC 10.13, RR 18-25, HR 80s, SBP initally 85/52 now 112/73 Pt with known chronic hypotension - SBP ranges 100s/50-60s Lactate 2.0, procalcitonin WNL, he is nontoxic-appearing" -as per patient's patient was complaining of chills/shaking, then an episode of vomiting at home and a body temperature of 100.4F -In ED patient received 500 mL fluid bolus with improvement in blood pressures and started on IV Zosyn q8 hours, Left femoral central line placed due to poor venous access. No sonographic evidence for acute cholecystitis on abdominal ultrasound -03/15/19 no acute events. patient was taken off IV fluids today and no symptoms. blood pressure of low normotensive appeared baseline compared to previous blood pressures in hospital records. Patient's cultures so far no growth. Continues to be on Zosyn q8 hours. Patient has been afebrile Left femoral central line has been removed and patient has 2 peripheral IV lines -plan is to continue IV Zosyn into 03/16/19 and if continues to be asymptomatic and if cultures remain negative then should be observed at least 24 hours off antibiotics in the hospital (3) Microscopic hematuria: no gross bleeding urine culture with no growth (4) Chronic systolic CHF (congestive heart failure): EF 20-25% secondary to ischemic BELL CAPTAIN continue digoxin AICD in place daily weights strict I and O Heart Healthy, Low NA diet since admission: Lasix held in setting of emesis and hypotension -re-initiate home regimen lasix 20mg q48hr (5) CAD (coronary artery disease): currently asymptomatic, no CP/SOB Continue ASA, Statin, Plavix not on BB or COLIN AICD in place (6) History of CVA with residual deficit: patient with chronic spastic Left sided paralysis, uses quad cane for ambulation continue ASA, Statin, Plavix (7) Seizure disorder: Continue Depakote Depakote level WNL (8) Thrombocytopenia: monitor (9) GERD (gastroesophageal reflux disease): Continue PPI (10) DVT prophylaxis: Lovenox, SCDS/Teds Rosa [id number] Subjective Patient seen and examined in AM and late afternoon. no acute events. patient was taken off IV fluids today and no symptoms. blood pressure of low normotensive appeared baseline compared to previous blood pressures in hospital records. Patient's cultures so far no growth. Continues to be on Zosyn q8 hours. Patient has been afebrile has chronic left sided weakness from previous stroke history mentating well. awake and alert. denies dizziness, or lightheadedness. no shortness of breath. breathing on room air. no chest pain. no palpitations. Physical Exam Constitutional: comfortable Eyes: PERRL, conjunctivae normal, anicteric sclerae EOM intact bilaterally ENMT: external ear and nose normal, oropharynx normal Neck: trachea midline, no thyromegaly Cardiovascular: Rate/Rhythm: regular rate and regular rhythm Gastrointestinal (Abdomen): normal bowel sounds, soft, nontender, no hepatosplenomegaly Musculoskeletal: Head/Neck/Chest: normocephalic and head atraumatic Neurologic: PERRL, EOMI, accommodation nl, no face palsy, no dysarthria left sided weakness which is chronic secondary to previous history of stroke Results & Data Vital Signs (Past 12 Hours) Vital Signs Temp Pulse Pulse Pulse Resp BP Pulse Ox 03/15/19 16:51 68 03/15/19 15:53 68 03/15/19 15:39 36.8 C 76 22 90/59 L 98 03/15/19 12:00 37.1 C 73 22 93/56 L 96 03/15/19 08:00 67 03/15/19 07:03 37.0 C 71 16 97/62 L 96 (1) CAD (coronary artery disease) Coronary Disease-Associated Artery/Lesion type: [place] artery [place] vs. transplanted heart: [place] heart Associated angina: without angina Qualified Code(s): I25.10 - Atherosclerotic heart disease of [place] coronary artery without angina pectoris (2) GERD (gastroesophageal reflux disease) Esophagitis presence: without esophagitis Qualified Code(s): K21.9 - Gastro- esophageal reflux disease without esophagitis
[2019-03-15] MEDS ORDERED: POTASSIUM CHLORIDE 20 MEQ TABCR PO STA (17:34)
[2019-03-15] MEDS: FUROSEMIDE 20 MG TAB PO SCH (18:24)
[2019-03-16] MEDS: PIPERACILLIN/TAZOBACTAM 3.375 GM in DEXTROSE 5% 100 ML IV SCH ×3 (00:07→17:11)
[2019-03-16] MEDS: THIAMINE HCL 100 MG TAB PO SCH (07:36)
[2019-03-16] MEDS: PANTOprazole 40 MG TAB PO SCH (07:36)
[2019-03-16] MEDS: MULTIVITAMIN TAB PO SCH (07:36)
[2019-03-16] MEDS: ASPIRIN 81 MG ECTAB PO SCH (07:36)
[2019-03-16] MEDS: CLOPIDOGREL BISULFATE 75 MG TAB PO SCH (07:36)
[2019-03-16] MEDS: ENOXAPARIN INJ 40 MG/0.4 ML SYR SQ SCH (07:37)
[2019-03-16] MEDS: FLUOXETINE HCL 20 MG CAP PO SCH (07:37)
--- NOTE | 2019-03-16 14:13 | Infectious Disease Consult ---
Date of Consultation March 16, 2019 Assessment & Plan (1) Positive blood culture: suspect skin contaminant, will repeat with pacer but doubt clinical significance. no additional fever, no leukocytosis, ESR normal. doubt infection, would follow off of abx. History of Present Illness Attending Physician: Sandee Mercer DO pt admitted after episode of vomiting and weakness. temp in ER 37.6, since arrival to ER has been afebrile. wbc normal, 7.9 today, ESR 9. 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 Urine culture negative. was placed on zosyn in Er and remains on this. CXR negative, denies sob, cough, no cp. no driver. no abd pain, currently denies n/v/d. abdominal ultrasound negative. creat normal. no additional vomiting. Overall states he is feeling much better. no complaints on exam. ID consulted for fever. tolerating abx. Allergies Allergy/AdvReac Type Severity Reaction Status Date / Time naproxen Allergy Mild Verified 03/14/19 16:07 morphine Allergy Unknown Verified 03/14/19 16:07 Home Medications Home Medications Medication Instructions Recorded Confirmed Type alendronate 1 tab PO WK 07/05/18 03/14/19 History aspirin [Aspirin Low Dose] 81 mg PO DAILY 07/05/18 03/14/19 History atorvastatin 40 mg PO HS 07/05/18 03/14/19 History clopidogrel 75 mg PO DAILY 07/05/18 03/14/19 History dexlansoprazole 60 mg PO DAILY 07/05/18 03/14/19 History digoxin 125 mcg PO DAILY 07/05/18 03/14/19 History divalproex 1,000 mg PO HS 07/05/18 03/14/19 History divalproex 250 mg PO HS 07/05/18 03/14/19 History fluoxetine 40 mg PO DAILY 07/05/18 03/14/19 History furosemide 20 mg PO Q2D 07/05/18 03/14/19 History multivitamin 1 tab PO DAILY 07/05/18 03/14/19 History thiamine HCl (vitamin B1) 100 mg PO DAILY 07/05/18 03/14/19 History Patient History Medical History Thrombocytopenia (Chronic) CAD (coronary artery disease) (Chronic) "Left and right heart catheterization report summary 09/21/2014: Proximal LAD has a 60% stenosis, a long 50% mid LAD disease Large branching OM2 has a 50% lesion The RCA has mild luminal irregularities The right sided pressures are mildly elevated without pulmonary hypertension (mean PA = 22 mm Hg), Mean wedge 13 mm Hg, LVEDP 14 mm hg, CO 4.1 (Thermodilution) " CVA (cerebral infarction) (Chronic) Depressive disorder (Chronic 04/14/12) PUD (peptic ulcer disease) (Chronic) GERD (gastroesophageal reflux disease) (Chronic) Left spastic hemiplegia (Chronic) Osteoporosis (Chronic) Dyslipidemia (Chronic) Ischemic cardiomyopathy (Chronic) April 24, 2018 TTE Interpretation Summary ([facility], Dr. Felix): There is a large sized apical, septal, anteroseptal, anterior, inferior, and lateral wall motion abnormality with hypokinesis to dyskinesis of the segments. The left ventricular myocardial thickness is normal in segments with normal wall motion. There is diffuse septal wall , anterior wall , apical wall thinning in a territory of LAD scar. Left ventricular systolic function is severely reduced. Ejection Fraction = 20-25%. No significant valvular pathology. 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 Required: No Beliefs That Will Affect Care: None marital status: Current Living Situation: Spouse Current Living Situation Comment: Lives with ex- and her son; has caregivers come in during the week Other Information That Helps Us Care for You: No other: Walks with a hemiwalker Feels Safe at Home: Yes Safety Concerns: Feels Safe At This Time Smoking Status: Unknown if ever smoked Hx Alcohol Use: No Hx Substance Use: No Review of Systems Review of Systems: All systems reviewed & are unremarkable except as noted in HPI & below Physical Exam Constitutional: WD/WN, vitals as above Eyes: PERRL, conjunctivae normal, anicteric sclerae ENMT: external ear and nose normal, oropharynx normal Neck: normal visual inspection Respiratory: normal respiratory effort, lungs clear to auscultation Cardiovascular: RRR, no murmur, no edema Gastrointestinal (Abdomen): normal bowel sounds, soft, nontender, no hepatosplenomegaly Musculoskeletal: no cyanosis or clubbing, extremities motor strength 5/5 Skin: no rashes, warm and dry Psychiatric: A+Ox3, euthymic affect Results & Data Vital Signs (Past 12 Hours) Vital Signs Temp Pulse Pulse Resp BP Pulse Ox 03/16/19 10:55 36.7 C 72 18 93/56 L 96 03/16/19 07:04 36.8 C 66 18 91/53 L 95 03/16/19 03:45 36.6 C 70 16 95/60 L 96 Laboratory Results Microbiology 03/14/19 17:45 Urine,Straight Cath Urine Culture - Final No growth - less than 1,000 colonies/mL. 03/14/19 15:13 Blood Aerobic Blood Culture - Preliminary Coag neg staph not lugdunensis 03/14/19 15:13 Blood Anaerobic Blood Culture - Preliminary No growth in Anaerobic bottle after 24 hours. 03/14/19 15:49 Blood Aerobic Blood Culture - Preliminary No growth in Aerobic bottle after 24 hours. 03/14/19 15:49 Blood Anaerobic Blood Culture - Final
--- NOTE | 2019-03-16 16:51 | Hospitalist Progress Note ---
Date of Service March 16, 2019 Assessment & Plan (1) Acute gastroenteritis: Nausea and vomiting that was treated with Zosyn but appeared to resolve rather quickly. Uncertain etiology. Patient denies food-borne illness; possibly viral? Resolved and he is now off antibiotics and doing well. Tolerating PO reliably and diarrhea is improved. (2) Microscopic hematuria: condom cath in place, no Mag[place]. Follow-up with repeat UA for screening as outpatient. (3) Chronic systolic CHF (congestive heart failure): EF 20-25% secondary to ICM, digoxin, ICD in place, cont daily weights, strict I and Os. Cont low Na diet. Cont Lasix per home regimen. (4) CAD (coronary artery disease): asymptomatic, cont medical therapy with ASA, statin, Plavix per home regimen. currently asymptomatic, no CP/SOB (5) Seizure disorder: no seizures, cont depakote (6) Positive blood culture: Likely skin contaminant per ID. Cont watchful waiting off antibiotics (7) Thrombocytopenia: chronic stable, hold Lovenox if <100 (8) DVT prophylaxis: Lovenox, SCDS/Teds Full Code Dispo-uncertain at this time, possibly home in am. Sandee Mercer DO [facility] Hospitalist Subjective Pt doing well and has no complaints. Denies fevers, chills, chest pain, sob or vomiting, which he reports was why he came into the hospital. He thinks a food- borne illness is low probability. He initially had some fever which has not returned for 48 hours. He is s/p CVA with some residual LUE and LLE weakness with foot drop chronically. HE is tolerating PO. He reports diarrhea, but nurses state that he only had one BM that was loose. ID was consulted with positive blood cultures, and feels this is likely a contaminant. Abx were stopped. Review of Systems Review of Systems: All systems reviewed & are unremarkable except as noted in HPI & below Physical Exam Physical Exam: CONSTITUTIONAL: WNWD, vitals as above, generally well- appearing EYES: normal conjunctivae, no scleral icterus ENT: MMM RESPIRATORY: clear to auscultation bilaterally, no crackles, rales or wheezes, normal respiratory effort CARDIOVASCULAR: regular rate and rhythm, S1 and 2 heard without murmurs, gallops or rubs, no JVD, no peripheral edema GASTROINTESTINAL: normal bowel sounds, soft, nontender, nondistended. MUSCULOSKELETAL: strength 5/5 throughout, head is normocephalic and atraumatic SKIN: warm and dry NEUROLOGIC: L sided weakness that is chronic, otherwise CN2-12 grossly intact. Appears to have some difficulty concentrating and comprehending at baseline PSYCHIATRIC: alert cooperative and oriented to person, place and time. Results & Data Vital Signs (Past 12 Hours) Vital Signs Temp Pulse Pulse Pulse Resp BP Pulse Ox 03/16/19 15:59 36.4 C L 69 18 96/52 L 96 03/16/19 15:15 69 03/16/19 10:55 36.7 C 72 18 93/56 L 96 03/16/19 07:04 36.8 C 66 18 91/53 L 95 Medications Administered Current Inpatient Medications Acetaminophen (Tylenol) 650 mg PO Q4H PRN PRN Reason: Pain or Fever Stop: 04/13/19 21:55 Aspirin (Ecotrin Ectab) 81 mg PO DAILY [facility] Stop: 04/14/19 08:59 Last Admin: 03/16/19 07:36 Dose: 81 mg Documented by: Atorvastatin Calcium (Lipitor) 40 mg PO HS [facility] Stop: 04/13/19 21:55 Last Admin: 03/15/19 20:53 Dose: 40 mg Documented by: Clopidogrel Bisulfate (Plavix) 75 mg PO DAILY [facility] Stop: 04/14/19 08:59 Last Admin: 03/16/19 07:36 Dose: 75 mg Documented by: Digoxin (Lanoxin) 0.125 mg PO DAILY@1600 [facility] Stop: 04/14/19 15:59 Last Admin: 03/15/19 16:51 Dose: 0.125 mg Documented by: Divalproex Sodium (Depakote Extended Release) 1,000 mg PO [facility] Stop: 04/13/19 21:55 Last Admin: 03/15/19 20:53 Dose: 1,000 mg Documented by: Divalproex Sodium (Depakote Extended Release) 250 mg PO [facility] Stop: 04/13/19 21:55 Last Admin: 03/15/19 20:53 Dose: 250 mg Documented by: Enoxaparin Sodium (Lovenox) 40 mg SQ Q24H [facility] Stop: 04/14/19 08:59 Last Admin: 03/16/19 07:37 Dose: 40 mg Documented by: Fluoxetine HCl (Prozac) 40 mg PO DAILY [facility] Stop: 04/14/19 08:59 Last Admin: 03/16/19 07:37 Dose: 40 mg Documented by: Furosemide (Lasix) 20 mg PO Q2D@0900 [facility] Stop: 04/14/19 17:29 Last Admin: 03/15/19 18:24 Dose: 20 mg Documented by: Magnesium Hydroxide (Milk Of Magnesia) 30 ml PO Q12H PRN PRN Reason: Constipation Stop: 04/13/19 21:55 Multivitamins (Multivitamin Tab) 1 tab PO DAILY [facility] Stop: 04/14/19 08:59 Last Admin: 03/16/19 07:36 Dose: 1 tab Documented by: Ondansetron HCl (Zofran) 4 mg IV Q6H PRN PRN Reason: Nausea Stop: 04/13/19 21:55 Pantoprazole Sodium (Protonix) 40 mg PO DAILY [facility] Stop: 04/14/19 08:59 Last Admin: 03/16/19 07:36 Dose: 40 mg Documented by: Polyethylene Glycol (Miralax Powder Packet) 17 gm PO DAILY PRN PRN Reason: Constipation Stop: 04/13/19 21:55 Thiamine HCl (Vitamin B-1) 100 mg PO DAILY [facility] Stop: 04/14/19 08:59 Last Admin: 03/16/19 07:36 Dose: 100 mg Documented by: (1) CAD (coronary artery disease) Associated angina: without angina Coronary Disease-Associated Artery/Lesion type: [place] artery [place] vs. transplanted heart: [place] heart Qualified Code(s): I25.10 - Atherosclerotic heart disease of [place] coronary artery without angina pectoris
[2019-03-16] MEDS: DIGOXIN 0.125 MG TAB PO SCH (17:06)
[2019-03-16] MEDS: DIVALPROEX EXTENDED RELEASE 500 MG TAB PO SCH (21:31)
[2019-03-16] MEDS: DIVALPROEX EXTENDED RELEASE 250 MG TABCR PO SCH (21:32)
[2019-03-16] MEDS: ATORVASTATIN 40 MG TAB PO SCH (21:32)
[2019-03-17] MEDS: FUROSEMIDE 20 MG TAB PO SCH (08:15)
[2019-03-17] MEDS: PANTOprazole 40 MG TAB PO SCH (08:15)
[2019-03-17] MEDS: MULTIVITAMIN TAB PO SCH (08:15)
[2019-03-17] MEDS: ENOXAPARIN INJ 40 MG/0.4 ML SYR SQ SCH (08:16)
[2019-03-17] MEDS: CLOPIDOGREL BISULFATE 75 MG TAB PO SCH (08:16)
[2019-03-17] MEDS: THIAMINE HCL 100 MG TAB PO SCH (08:16)
[2019-03-17] MEDS: ASPIRIN 81 MG ECTAB PO SCH (08:16)
[2019-03-17] MEDS: FLUOXETINE HCL 20 MG CAP PO SCH (08:16)
[2019-03-17 10:04] LABS: Hematocrit (blood only) 34.3 % (42-52); Hemoglobin 11.4 g/dL (14.0-18.0); Mean Corpuscular Hgb Conc 33.2 g/dL (32-36); Mean Corpuscular Volume 96.9 fL (80-100); Mean Platelet Volume 11.6 fL (7.4-10.4); Platelet Count 121 K/uL (130-400); RDW Coefficient of Variation 15.2 % (11.5-14.5); RDW Standard Deviation 54.4 fL (36.4-46.3); Red Blood Count 3.54 M/uL (4.7-6.1); White Blood Count 6.26 K/uL (4.8-10.8)
[2019-03-17 10:23] LABS: BUN Creatinine Ratio 9.8 (10-20); Calcium 8.8 mg/dl (8.5-10.1); Creatinine Clr Calc Pharmacy 82.2 ml/min; Est GFR (African American) 111.7; Est GFR (Non-African American) 96.4; Potassium 3.9 mmol/L (3.5-5.1)
--- NOTE | 2019-03-17 15:21 | Discharge Summary ---
Date of Service March 17, 2019 Admission HPI Per Admitting Provider This is a 63-year-old male with significant past medical history of Chronic Systolic CHF secondary to ischemic cardiomyopathy EF 20-25%, CAD, history of CVA with spastic left hemiparesis, HLD, GERD, thrombocytopenia, chronic ambulatory dysfunction secondary to CVA, hx of seizure disorder, carotid artery stenosis, hx of ETOH abuse who presents to [facility] secondary to nausea, vomiting, ill feeling x1 day. Per patient's ex- he woke this morning at approximately 4 AM alerting her that he did not feel well and was shaking. She felt shaking was secondary to overall being cold and his known tr emors. Approximately 1130 to noon she received a call from caregiver who stated patient was having difficulty walking to bathroom and overall sick to stomach. When ex- returned home patient had episodes of emesis x2. Temperature was 100.4 axillary after emesis and overall felt feverish. Currently patient states he feels tired. He elicits he had overall sick feeling in stomach today, nausea and emesis. He denies any chills, sweats, lightheadedness, dizziness, syncope, chest pain, shortness of breath, cough, URI symptoms, diarrhea, abdominal pain, dysuria, increased frequency urgency with urination. His appetite has been okay and he follows 2 L fluid restriction. Per patient's ex- he has been participating in outpatient therapy due to weakness/difficulty walking . Admission Exam Per Admitting Provider Gen:Chronically ill appearing male who appears older than stated age, unkempt, lying in bed, NAD, tremor noted, answers questions appropriately Head: Normocephalic, Atraumatic Eyes: Sclera normal, no conjunctival injection, PERRLA, EOMI ENT: Gross hearing intact, normal pharynx, mucous membranes dry Neck: supple, no adenopathy, No JVD, no bruit, Resp: Clear to auscultation b/l, no wheeze, rales, rhonchi. 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 Extremities: No edema bilaterally Skin: warm, moist, no rash, mild turgor, cap refill < 2sec Neuro: Alert and oriented to person, place, year but not to month and president, speech normal, flat mood/affect, cran nerve 2-12 intact grossly : Positive Magaña in place draining clear yellow urine Left femoral central venous access noted Principal Diagnosis Acute gastroenteritis-resolved Discharge Data Allergies Allergy/AdvReac Type Severity Reaction Status Date / Time naproxen Allergy Mild Verified 03/14/19 16:07 morphine Allergy Unknown Verified 03/14/19 16:07 Consultations 03/14/19 18:52 ED Decision to Admit Stat 03/14/19 21:56 Consult Case Management - Discharge Planning Routine 03/16/19 10:39 Consult Infectious Diseases Routine Ordered Studies 03/14/19 19:39 US abdomen complete Urgent Hospital Course (1) Acute gastroenteritis: (2) Microscopic hematuria: (3) Chronic systolic CHF (congestive heart failure): (4) CAD (coronary artery disease): (5) Seizure disorder: (6) Positive blood culture: (7) Thrombocytopenia: (8) History of CVA with residual deficit: He was admitted to the hospitalist service and did not meet Sirs criteria on admission. In the ER he received 500 mL of IV fluids with improvement in blood pressure which was initially 85/52. Blood and urine cultures were obtained and he was started on broad-spectrum antibiotics with IV Zosyn. A left femoral central line was placed due to poor venous access. He is a stroke patient with residual spastic left hemiparesis. He did well the following day and was continued on Zosyn. Infectious disease was consulted after 1 of 2 blood cultures positive for coag negative staph. If this ultimately was suspected to be a skin contaminant as he continued to do well clinically. Zosyn was discontinued and he continued to feel well. Repeat blood cultures were negative. Urine culture was negative. Fever did not return the patient remained hemodynamically stable throughout his hospitalization. Blood pressure was lower in the 90 systolic, but this is a trend for him and is around his baseline. At time of discharge he was hemodynamically stable and afebrile and tolerating p.o. He was mentating and ambulating at baseline. Physical exam revealed chronic stroke deficits as previously noted. He was alert and oriented x3. Heart and lung exam are normal. Abdomen was soft and nontender. He was sent home in stable condition with close primary care follow-up recommended. Total Time Total Time Spent Total Time Spent (In Minutes): 60 Total Time Includes: Examination of the Patient, Discharge Planning, Medication Reconciliation and Communication With Other Providers Discharge Plan Discharge Items Patient Disposition: Home - Self-Care Reason For Visit: FEBRILE ILLNESS Discharge Diagnosis: Acute gastroenteritis-resolved Discharge Goals: Improve function and Increase independence Activity: Resume your previous activity Non-emergency contact: Primary Care Provider Call non-emergency contact if: you have any medication questions, your symptoms worsen, your pain is not controlled, your pain is worsening, your pain is unusual for you and you have a fever Follow-up/Referrals: Richardson Sterling MD [Primary Care Provider] - Diet: Low Sodium (2gm) Addtl Provider Instructions: Please take all medications as instructed on discharge list below. You have the following appointments: 03/22/2019 10:00 AM Richardson Sterling MD Internal Medicine [facility] 07/15/2019 10:00 AM Lien Villeda MD Neurology [facility] Please note that you had some microscopic blood in your urine and it is recommended to have a repeat urinalysis. Dr. Bañuelos can order this for you at followup. You will also need to discuss your finalized blood culture results with Dr. Bañuelos at this time. It was a pleasure taking care of you! Please call if you have any questions or problems. You can reach a [facility] hospitalist on duty at [facility] 24 hours a day by calling [phone]. Take care of yourself. Sandee Mercer, [facility] Hospitalist Prescriptions: Continued multivitamin Tablet 1 tab PO DAILY RF: 0 fluoxetine 40 mg capsule 40 mg PO DAILY RF: 0 atorvastatin 40 mg tablet 40 mg PO HS RF: 0 alendronate 70 mg tablet 1 tab PO WK RF: 0 thiamine HCl (vitamin B1) 100 mg Tablet 100 mg PO DAILY RF: 0 clopidogrel 75 mg tablet 75 mg PO DAILY RF: 0 aspirin [Aspirin Low Dose] 81 mg Tablet,Delayed Release (Dr/Ec) 81 mg PO DAILY RF: 0 divalproex 500 mg tablet extended release 24 hr 1,000 mg PO HS RF: 0 digoxin 125 mcg tablet 125 mcg PO DAILY RF: 0 furosemide 20 mg tablet 20 mg PO Q2D RF: 0 divalproex 250 mg tablet extended release 24 hr 250 mg PO HS RF: 0 dexlansoprazole 60 mg capsule,biphase delayed releas 60 mg PO DAILY RF: 0 Stand-Alone Forms: [facility] Discharge Orders: Discharge Order (Routine); Ordered 03/17/19 Ordered By: Sandee Mercer Admission Data Admit Date/Time: 03/14/19 19:39 Attending Provider: Sandee Mercer Admit Provider: Kaz Mcneill Primary Care Provider: Richardson Sterling Other Providers: Kaz Mcneill ; Eric Rashid Service: Medical Other Interventions: Discharge Summary Assessment (RN) Last Done: 03/17/19 16:22 Pending Studies at Discharge: Yes Studies:: Finalized blood cultures DC Date/Time DO NOT enter until pt leaves facility: 03/17/19 19:00
[2019-03-17] MEDS: DIGOXIN 0.125 MG TAB PO SCH (17:23)
== END 2019-03-17 19:00 | disposition home or self-care (01) | DRG 392 ==
LOC: ED 14:29 → SUATTDRO 19:39 → 2S 19:39 → 4W 03-16 16:49
DX: K52.9 Noninfective gastroenteritis and colitis, unspecified; Z86.73 Personal history of transient ischemic attack (TIA), and cerebral infarction without residual deficits; G40.909 Epilepsy, unspecified, not intractable, without status epilepticus; K21.9 Gastro-esophageal reflux disease without esophagitis; Z79.82 Long term (current) use of aspirin; I95.9 Hypotension, unspecified; G81.14 Spastic hemiplegia affecting left nondominant side; Z95.810 Presence of automatic (implantable) cardiac defibrillator; D69.6 Thrombocytopenia, unspecified; Z88.5 Allergy status to narcotic agent; I50.22 Chronic systolic (congestive) heart failure; I25.10 Atherosclerotic heart disease of native coronary artery without angina pectoris; Z82.49 Family history of ischemic heart disease and other diseases of the circulatory system

== ENCOUNTER 2021-11-02 15:54 | Inpatient (IN) ==
--- NOTE | 2021-11-02 16:20 | Emergency Department Note ---
Impression & Plan COVID-19, Cough, Wound of sacral region, D-dimer, elevated ED Provider Note Provider: José Miguel Villalba MD DATE OF SERVICE: 11/02/2021 CHIEF COMPLAINT: Cough, Covid, buttock wounds HISTORY OF PRESENT ILLNESS: Patient is a 66-year-old gentleman with past medical history of CAD, CVA with resultant left-sided spasticity/paralysis, AICD, kidney stones, seizure disorder, and CHF presented via ambulance from his home today with concerns about worsening cough and shortness of breath. Patient evidently began to experience a cough on Thursday. Tested positive at home on a Covid test on Thursday. He reports to me he is not vaccinated for Covid. Endorses some shortness of breath, chest pain, abdominal pain. States he did not eat much for breakfast. No trauma is reported. Reports pain on his buttocks and there was reports that they have been trying to care for some wounds on his buttocks but it is fairly tender and erythematous. Patient evidently has an albuterol inhaler at home but he is having difficulty using it due to his history of stroke and coordination. EMS report that the patient was not hypoxic for them was placed on swallowed oxygen initially for comfort. EMS reports that family ever states the patient's was in the 80s pulse ox overnight last night. Patient has been using some cough medicine as well as prednisone at home the last several days. REVIEW OF SYSTEMS: A total of 10 review of systems was obtained and negative except as stated above in the HPI. PAST MEDICAL HISTORY: As noted above MEDICATIONS: Reviewed home medication list presenting with the patient SOCIAL HISTORY: Lives at home with per his report (?ex-) PHYSICAL EXAM: GENERAL: alert and oriented on the stretcher occasionally coughing Head: normocephalic and atraumatic EYES: No injection, discharge or icterus. NECK: Trachea midline. ENT: Mucous membranes pink and moist. LUNGS: Airway patent. No retractions breath sounds with some diffuse rhonchi and transmitted upper airway sounds. HEART: Regular rate and rhythm. No chest wall tenderness ABDOMEN: Soft and non-tender, without guarding or rebound. SKIN: Acyanotic, warm, dry with large diffuse scaling plaques and erythema involving the entire bilateral buttocks and sacral region without significant tunneling deep wounds obviously noted. EXTREMITIES: 1+ bilateral lower extremity swelling is minimal spasticity and co ntractures to the left arm and leg are noted NEUROLOGICAL: Patient with spasticity and limited movement of the left arm and leg due to history of CVA. Some dysarthria. Right upper extremity fairly well. EK bpm normal sinus rhythm with a PVC or PAC with somewhat shortened AR. No acute ST segment elevation or depression noted with a QTC of 422. Nonspecific lateral T wave and inferior T wave flattening. CONTINUOUS CARDIAC MONITORING: was ordered and showed a heart rate of 70s-80s bpm in NSR Patient's laboratory studies and imaging reviewed. Differential includes Infection, dehydration, metabolic abnormality, hypo/hyperglycemia, electrolyte disturbance, anemia, hypoxia, cardiac sources, intracerebral event, toxicologic, neurologic, as well as other pathologies. IMPRESSION/MEDICAL DECISION MAKING: Patient NOT hypoxic here with fairly wet sounding cough upon arrival. Significant comorbidities and history of left CVA. Reportedly unvaccinated with approximately 6 days of Covid symptoms and reportedly positive for Covid at home. And with some diffuse erythema of the sacrum and buttock region but no obvious open wounds or tunneling grossly appreciated on exam. Dig and Depakote levels are sent in addition to basic blood works. Chest x-ray will be obtained as well as EKG and troponin. D-dimer sent as well as CRP for inflammatory markers but mild lower initial suspicion for PE. D-dimer is severely elevated at 4070. Chest x-ray questions possible pneumonia in the left base. CT of the chest will be completed further differentiation. Minimal anemia. White blood cell count borderline at 10.6. Mild lactate elevation of 2.5 units history of CHF and to be careful with IV fluids. Doubt sepsis at this point. Covid test does return positive. Therapeutic digoxin and valproate levels. No troponin elevation. CRP mildly elevated likely related to infection and Covid infection. Covered empirically with ceftriaxone and doxycycline at this time for possible pneumonia as well as microbial coverage for any bacterial component to the sacral wound although I suspect there may be some fungal component here as well. Patient will need wound consultation. Given his comorbidities this as well as Covid status will not hypoxic feel that further care here at the hospital is warranted. The patient is in agreement. Per his request Rosa updated via phone as well and reports was and PCPs on 10/21 and them developed cough that night. Was on nystatin powder and Keflex for his sacrum which she states is improving. She reports she believes that he needs a CPAP as well at night and had prior sleep study in 2018. CT of the chest later returns without evidence of PE. DIAGNOSIS: Covid, cough, sacral wound, elevated D-dimer DISPOSITION: Hospitalist will evaluate Patient was agreeable with this plan. Past Med/Surg History Medical History (Updated 11/02/21 @ 18:48 by Keyana Rodriguez MD) CAD (coronary artery disease) "Left and right heart catheterization report summary 09/21/2014: Proximal LAD has a 60% stenosis, a long 50% mid LAD disease Large branching OM2 has a 50% lesion The RCA has mild luminal irregularities The right sided pressures are mildly elevated without pulmonary hypertension (mean PA = 22 mm Hg), Mean wedge 13 mm Hg, LVEDP 14 mm hg, CO 4.1 (Thermodilution) " Carotid stenosis Convulsions "EEG abnormal in 2006- potential seizure focus in R temporal region 09/10/06" CVA (cerebral infarction) Depressive disorder (04/14/12) Dyslipidemia GERD (gastroesophageal reflux disease) HFrEF (heart failure with reduced ejection fraction) Ischemic cardiomyopathy April 24, 2018 TTE Interpretation Summary ([facility], Dr. Felix): There is a large sized apical, septal, anteroseptal, anterior, inferior, and lateral wall motion abnormality with hypokinesis to dyskinesis of the segments. The left ventricular myocardial thickness is normal in segments with normal wall motion. There is diffuse septal wall , anterior wall , apical wall thinning in a territory of LAD scar. Left ventricular systolic function is severely reduced. Ejection Fraction = 20-25%. No significant valvular pathology. Kidney stone Left spastic hemiplegia Osteoporosis PUD (peptic ulcer disease) S/P ORIF (open reduction internal fixation) fracture "01/07/07 ORIF left tibial plateau fracture " Thrombocytopenia Surgical History Cardiac defibrillator in situ Pacemaker S/P appendectomy Family History Mother , at 68 Myocardial infarction Father , at 68 Myocardial infarction Social History Smoking Status: Unknown if ever smoked Second Hand Exposure: No; Hx Alcohol Use: No Hx Substance Use: No Preferred Language: Yakut Communication Ability: Effective Legislative Analyst Required: No Beliefs That Will Affect Care: None marital status: Current Living Situation: Spouse Current Living Situation Comment: Lives with ex- and her son; has care givers come in during the week other: Walks with a hemiwalker Feels Safe at Home: Yes Assistive Devices: Brace/Splint/Immobilizer and Walker Allergies Allergies Allergy/AdvReac Type Severity Reaction Status Date / Time morphine Allergy Mild Itchiness Verified 05/25/19 17:26 naproxen Allergy Mild Hives Verified 05/25/19 17:26 Home Meds Home Medications Medication Instructions Recorded Confirmed alendronate 70 mg tablet 70 mg PO WK 07/05/18 11/02/21 aspirin 81 mg tablet,delayed 81 mg PO DAILY 07/05/18 11/02/21 release (Aspirin Low Dose) atorvastatin 40 mg tablet 40 mg PO HS 07/05/18 11/02/21 clopidogrel 75 mg tablet 75 mg PO DAILY 07/05/18 11/02/21 dexlansoprazole 60 mg 60 mg PO DAILY 07/05/18 11/02/21 capsule,biphase delayed release digoxin 125 mcg (0.125 mg) tablet 125 mcg PO DAILY 07/05/18 11/02/21 divalproex 250 mg tablet,extended 250 mg PO HS 07/05/18 11/02/21 release 24 hr divalproex 500 mg tablet,extended 1,000 mg PO HS 07/05/18 11/02/21 release 24 hr fluoxetine 40 mg capsule 40 mg PO DAILY 07/05/18 11/02/21 furosemide 20 mg tablet 20 mg PO Q2D 07/05/18 11/02/21 multivitamin 1 tab PO DAILY 07/05/18 11/02/21 thiamine HCl (vitamin B1) 100 mg 100 mg PO DAILY 07/05/18 11/02/21 tablet coenzyme Q10 200 mg capsule 200 mg PO DAILY 05/25/19 11/02/21 folic acid 1 mg tablet 1 mg PO DAILY 05/25/19 11/02/21 omega-3 fatty acids 1,000 mg 1,000 mg PO BID 05/25/19 11/02/21 capsule (Fish Oil Concentrate) Results & Data (ED) Vital Signs Vital Signs - 24 hr 11/02/21 16:04 11/02/21 16:18 11/02/21 18:48 Temperature 37.2 C 37.2 C Temperature Source Oral Oral Pulse Rate 84 85 74 Pulse Rate [Apical] 78 Pulse Rhythm Regular Pulse Rhythm [Apical] Regular Pulse Strength Normal Pulse Strength [Apical] Normal Respiratory Rate 24 24 20 Respiratory Effort / Characteristics Non-Labored Spontaneous Grunting Respiratory Depth Normal Respiratory Pattern Regular Blood Pressure 133/72 148/79 H Blood Pressure [Right Arm] 133/72 Blood Pressure Mean 92 Blood Pressure Mean [Right Arm] 92 Blood Pressure Position Lying Blood Pressure Position [Right Arm] Lying Pulse Oximetry 95 96 98 Oxygen Delivery Method Room Air Room Air Nasal Cannula Oxygen Flow Rate 2 Sepsis Recent Fever Within 48 Hours No Sepsis New/Unexplained Change in Mental Status No Sepsis Action Taken by Nursing No Action Required Laboratory Data Result diagrams: 11/02/21 16:30 11/02/21 16:30 Lab Results 11/02/21 11/02/21 11/02/21 Range/Units 16:30 16:30 16:30 WBC (4.8-10.8) K/uL RBC (4.7-6.1) M/uL Hgb (14.0-18.0) g/dL Hct (42-52) % MCV (80-100) fL MCH (25-34) pg MCHC (32-36) g/dL RDW Std Deviation (36.4-46.3) fL RDW Coeff of Pam (11.5-14.5) % Plt Count (130-400) K/uL MPV (7.4-10.4) fL Neutrophils % (Manual) % Lymphocytes % (Manual) % Monocytes % (Manual) % Myelocytes % (Man) % Neutrophils # (Manual) (1.4-6.5) K/uL Total Absolute Neuts (1.4-6.5) K/uL Lymphocytes # (Manual) (1.2-3.4) K/uL Total Abs Lymphocytes (1.2-3.4) K/uL Monocytes # (Manual) (0.11-0.59) K/uL Myelocytes # (Manual) (0-0) K/uL Poikilocytosis PT 10.9 (9.0-12.0) Seconds INR 1.0 (0.9-1.1) D-Dimer 4070 H* (0-500) ug/L FEU Sodium 140 (136-145) mmol/L Potassium 3.7 (3.5-5.1) mmol/L Chloride 108 H (98-107) mmol/L Carbon Dioxide 24 (21-32) mmol/L Anion Gap 8 (3-11) BUN 20 (6-23) mg/dl Creatinine 0.79 (0.6-1.4) mg/dl Est Cr Clr Drug Dosing 87.8 ml/min Est GFR ( Amer) 107.7 ml/min Est GFR (Non-Af Amer) 92.9 ml/min BUN/Creatinine Ratio 25.3 H (10-20) Glucose 166 H (70-99(Fasting)) mg/dl Lactate (0.4-2.0) mmol/L Calcium 8.9 (8.5-10.1) mg/dl Magnesium 2.0 (1.7-2.4) mg/dl Total Bilirubin 0.3 (0.2-1.0) mg/dl AST 24 (13-39) U/L ALT 22 (7-52) U/L Alkaline Phosphatase 46 (34-104) U/L Troponin I < 0.03 (0-0.04) ng/ml C-Reactive Protein 3.45 H (0-0.5) mg/dl B-Natriuretic Peptide (0-100) pg/ml Total Protein 7.4 (6.0-8.3) gm/dl Albumin 3.4 (3.4-5.0) gm/dl Globulin 4.0 (2.5-4.0) gm/dl Albumin/Globulin Ratio 0.9 (0.9-2) Lipase 13 (11-82) U/L Procalcitonin (0-0.5) ng/ml TSH (0.300-4.500) uIu/ml Free T4 (0.61-1.60) ng/dl Digoxin 0.8 (0.8-2.0) ng/ml Valproic Acid 86 (50-100) mcg/ml SARS-CoV-2, RNA, NAAT (NEGATIVE) 11/02/21 11/02/21 11/02/21 Range/Units 16:30 16:30 16:30 WBC 10.64 (4.8-10.8) K/uL RBC 4.11 L (4.7-6.1) M/uL Hgb 13.3 L (14.0-18.0) g/dL Hct 39.9 L (42-52) % MCV 97.1 (80-100) fL MCH 32.4 (25-34) pg MCHC 33.3 (32-36) g/dL RDW Std Deviation 57.5 H (36.4-46.3) fL RDW Coeff of Pam 16.4 H (11.5-14.5) % Plt Count 372 (130-400) K/uL MPV 10.5 H (7.4-10.4) fL Neutrophils % (Manual) 79.6 % Lymphocytes % (Manual) 14.2 % Monocytes % (Manual) 3.5 % Myelocytes % (Man) 2.7 % Neutrophils # (Manual) 8.47 H (1.4-6.5) K/uL Total Absolute Neuts 8.47 H (1.4-6.5) K/uL Lymphocytes # (Manual) 1.51 (1.2-3.4) K/uL Total Abs Lymphocytes 1.51 (1.2-3.4) K/uL Monocytes # (Manual) 0.37 (0.11-0.59) K/uL Myelocytes # (Manual) 0.29 H (0-0) K/uL Poikilocytosis Present PT (9.0-12.0) Seconds INR (0.9-1.1) D-Dimer (0-500) ug/L FEU Sodium (136-145) mmol/L Potassium (3.5-5.1) mmol/L Chloride (98-107) mmol/L Carbon Dioxide (21-32) mmol/L Anion Gap (3-11) BUN (6-23) mg/dl Creatinine (0.6-1.4) mg/dl Est Cr Clr Drug Dosing ml/min Est GFR ( Amer) ml/min Est GFR (Non-Af Amer) ml/min BUN/Creatinine Ratio (10-20) Glucose (70-99(Fasting)) mg/dl Lactate (0.4-2.0) mmol/L Calcium (8.5-10.1) mg/dl Magnesium (1.7-2.4) mg/dl Total Bilirubin (0.2-1.0) mg/dl AST (13-39) U/L ALT (7-52) U/L Alkaline Phosphatase (34-104) U/L Troponin I (0-0.04) ng/ml C-Reactive Protein (0-0.5) mg/dl B-Natriuretic Peptide (0-100) pg/ml Total Protein (6.0-8.3) gm/dl Albumin (3.4-5.0) gm/dl Globulin (2.5-4.0) gm/dl Albumin/Globulin Ratio (0.9-2) Lipase (11-82) U/L Procalcitonin < 0.05 (0-0.5) ng/ml TSH 4.828 H (0.300-4.500) uIu/ml Free T4 1.03 (0.61-1.60) ng/dl Digoxin (0.8-2.0) ng/ml Valproic Acid (50-100) mcg/ml SARS-CoV-2, RNA, NAAT (NEGATIVE) 11/02/21 11/02/21 11/02/21 Range/Units 16:30 16:44 16:58 WBC (4.8-10.8) K/uL RBC (4.7-6.1) M/uL Hgb (14.0-18.0) g/dL Hct (42-52) % MCV (80-100) fL MCH (25-34) pg MCHC (32-36) g/dL RDW Std Deviation (36.4-46.3) fL RDW Coeff of Pam (11.5-14.5) % Plt Count (130-400) K/uL MPV (7.4-10.4) fL Neutrophils % (Manual) % Lymphocytes % (Manual) % Monocytes % (Manual) % Myelocytes % (Man) % Neutrophils # (Manual) (1.4-6.5) K/uL Total Absolute Neuts (1.4-6.5) K/uL Lymphocytes # (Manual) (1.2-3.4) K/uL Total Abs Lymphocytes (1.2-3.4) K/uL Monocytes # (Manual) (0.11-0.59) K/uL Myelocytes # (Manual) (0-0) K/uL Poikilocytosis PT (9.0-12.0) Seconds INR (0.9-1.1) D-Dimer (0-500) ug/L FEU Sodium (136-145) mmol/L Potassium (3.5-5.1) mmol/L Chloride (98-107) mmol/L Carbon Dioxide (21-32) mmol/L Anion Gap (3-11) BUN (6-23) mg/dl Creatinine (0.6-1.4) mg/dl Est Cr Clr Drug Dosing ml/min Est GFR ( Amer) ml/min Est GFR (Non-Af Amer) ml/min BUN/Creatinine Ratio (10-20) Glucose (70-99(Fasting)) mg/dl Lactate 2.5 H* (0.4-2.0) mmol/L Calcium (8.5-10.1) mg/dl Magnesium (1.7-2.4) mg/dl Total Bilirubin (0.2-1.0) mg/dl AST (13-39) U/L ALT (7-52) U/L Alkaline Phosphatase (34-104) U/L Troponin I (0-0.04) ng/ml C-Reactive Protein (0-0.5) mg/dl B-Natriuretic Peptide 204 H (0-100) pg/ml Total Protein (6.0-8.3) gm/dl Albumin (3.4-5.0) gm/dl Globulin (2.5-4.0) gm/dl Albumin/Globulin Ratio (0.9-2) Lipase (11-82) U/L Procalcitonin (0-0.5) ng/ml TSH (0.300-4.500) uIu/ml Free T4 (0.61-1.60) ng/dl Digoxin (0.8-2.0) ng/ml Valproic Acid (50-100) mcg/ml SARS-CoV-2, RNA, NAAT POSITIVE A* (NEGATIVE) Administered Medications Discontinued Medications Doxycycline Hyclate (Doxycycline Hyclate 100 Mg Cap) 100 mg PO NOW STA Stop: 11/02/21 17:36 Last Admin: 11/02/21 18:26 Dose: 100 mg Documented by: [id number] Ceftriaxone Sodium (Rocephin) 2,000 mg in 70 mls @ 140 mls/hr IV NOW STA Stop: 11/02/21 18:03 Last Infusion: 11/02/21 19:00 Dose: 0 mls/hr Documented by: [id number] Admin: 11/02/21 18:26 Dose: 140 mls/hr Documented by: [id number] Ioversol (Optiray 320 125ml) 116 ml IV ONCE ONE Stop: 11/02/21 19:13 Last Admin: 11/02/21 19:13 Dose: 116 ml Documented by: [id number] Imaging Data Radiologist's Impression: Chest X-Ray 11/02/21 16:06 XR chest 1V portable CLINICAL HISTORY: cough, covid TECHNIQUE: Single frontal radiograph of the chest was obtained. Comparison: Comparison is made to chest one view 03/14/2019 FINDINGS: Single lead pacemaker defibrillator is seen. The cardiomediastinal silhouette is normal. Lungs are underinflated. There is questionable faint airspace opacity in the left lower lung. No evidence of pleural effusion or pneumothorax. IMPRESSION: Questionable faint airspace opacity in the left lower lung which may represent atelectasis, pneumonia, and/or aspiration. ACT 112: Negative or not required by law. Electronically signed by: Toni Chapman M.D. 11/02/2021 5:16 PM Chest CTA 11/02/21 17:34 CT angio chest PE protocol CLINICAL HISTORY: PE, COVId, +dimer TECHNIQUE: Multidetector row helical CT of the chest was performed with angiographic protocol. Coronal and sagittal reformations were obtained. Coronal and sagittal MIPS were obtained from the axial data set and were submitted for review. Automated dose lowering techniques and/or adjustment according to patient size were utilized for this exam. Comparison: Comparison is made to CT thorax 04/23/2018 FINDINGS: Exam is limited by patient motion. Lungs and pleura: Atelectasis versus scarring is seen in the dependent portions of the lungs. Heart and pericardium: Cardiomegaly is seen with biatrial enlargement. Vessels: No evidence of pulmonary embolism. Mediastinum and davida: Unremarkable. Chest wall and lower neck: Unremarkable. Abdomen: Unremarkable. Bones: Degenerative changes in the thoracic spine. IMPRESSION: No evidence of pulmonary embolism. No airspace disease is seen. ACT 112: Negative or not required by law. Electronically signed by: Toni Chapman M.D. 11/02/2021 7:26 PM Discharge Plan Visit Data Chief Complaint: Shortness of Breath/Dyspnea Stated Complaint: COUGH, SOB, COVID + ED Provider: José Miguel Villalba Discharge Problem: COVID-19, Cough, Wound of sacral region, D-dimer, elevated Patient Disposition: Being Evaluated by Hospitalist Prescriptions Prescriptions: No Action multivitamin Tablet 1 tab PO DAILY RF: 0 fluoxetine 40 mg capsule 40 mg PO DAILY RF: 0 atorvastatin 40 mg tablet 40 mg PO HS RF: 0 alendronate 70 mg tablet 70 mg PO WK RF: 0 thiamine HCl (vitamin B1) 100 mg Tablet 100 mg PO DAILY RF: 0 clopidogrel 75 mg tablet 75 mg PO DAILY RF: 0 aspirin [Aspirin Low Dose] 81 mg Tablet,Delayed Release (Dr/Ec) 81 mg PO DAILY RF: 0 divalproex 500 mg tablet extended release 24 hr 1,000 mg PO HS RF: 0 digoxin 125 mcg tablet 125 mcg PO DAILY RF: 0 furosemide 20 mg tablet 20 mg PO Q2D RF: 0 divalproex 250 mg tablet extended release 24 hr 250 mg PO HS RF: 0 dexlansoprazole 60 mg capsule,biphase delayed releas 60 mg PO DAILY RF: 0 omega-3 fatty acids [Fish Oil Concentrate] 1,000 mg Capsule 1,000 mg PO BID RF: 0 folic acid 1 mg Tablet 1 mg PO DAILY RF: 0 coenzyme Q10 200 mg Capsule 200 mg PO DAILY RF: 0
[2021-11-02 16:54] LABS: Mean Corpuscular Hgb Conc 33.3 g/dL (32-36); Mean Platelet Volume 10.5 fL (7.4-10.4); Platelet Count 372 K/uL (130-400)
[2021-11-02 17:11] LABS: Prothrombin Time 10.9 Seconds (9.0-12.0)
[2021-11-02 17:15] LABS: Digoxin 0.8 ng/ml (0.8-2.0)
[2021-11-02 17:16] LABS: D Dimer 4070 ug/L FEU (0-500)
[2021-11-02 17:17] LABS: Alanine Aminotransferase 22 U/L (7-52); Albumin Globulin Ratio 0.9 (0.9-2); Albumin Level 3.4 gm/dl (3.4-5.0); Alkaline Phosphatase 46 U/L (34-104); Anion Gap 8 (3-11); Aspartate Aminotransferase 24 U/L (13-39); BUN Creatinine Ratio 25.3 (10-20); Bilirubin,Total 0.3 mg/dl (0.2-1.0); Blood Urea Nitrogen 20 mg/dl (6-23); C Reactive Protein 3.45 mg/dl (0-0.5); Calcium 8.9 mg/dl (8.5-10.1); Carbon Dioxide 24 mmol/L (21-32); Chloride 108 mmol/L (98-107); Creatinine Clr Calc Pharmacy 87.8 ml/min; Est GFR (African American) 107.7 ml/min; Est GFR (Non-African American) 92.9 ml/min; Glucose 166 mg/dl (70-99(Fasting)); Lipase 13 U/L (11-82); Potassium 3.7 mmol/L (3.5-5.1); Sodium 140 mmol/L (136-145); Total Protein 7.4 gm/dl (6.0-8.3); Troponin I < 0.03 ng/ml (0-0.04)
--- NOTE | 2021-11-02 17:17 | XRay Report ---
XR chest 1V portable CLINICAL HISTORY: cough, covid TECHNIQUE: Single frontal radiograph of the chest was obtained. Comparison: Comparison is made to chest one view 03/14/2019 FINDINGS: Single lead pacemaker defibrillator is seen. The cardiomediastinal silhouette is normal. Lungs are un derinflated. There is questionable faint airspace opacity in the left lower lung. No evidence of pleu ral effusion or pneumothorax. IMPRESSION: Questionable faint airspace opacity in the left lower lung which may represent atelectasis, pneumonia , and/or aspiration. ACT 112: Negative or not required by law. Electronically signed by: Toni Chapman M.D. 11/02/2021 5:16 PM
[2021-11-02 17:20] LABS: Hematocrit (blood only) 39.9 % (42-52); Hemoglobin 13.3 g/dL (14.0-18.0); Mean Corpuscular Hemoglobin 32.4 pg (25-34); Mean Corpuscular Volume 97.1 fL (80-100); RDW Coefficient of Variation 16.4 % (11.5-14.5); RDW Standard Deviation 57.5 fL (36.4-46.3); Red Blood Count 4.11 M/uL (4.7-6.1); White Blood Count 10.64 K/uL (4.8-10.8)
[2021-11-02 17:22] LABS: ALC (manual) 1.51 K/uL (1.2-3.4); ANC (manual) 8.47 K/uL (1.4-6.5); Lymphocytes # (manual) 1.51 K/uL (1.2-3.4); Lymphocytes % (manual) 14.2 %; Monocytes # (manual) 0.37 K/uL (0.11-0.59); Monocytes % (manual) 3.5 %; Myelocytes # (manual) 0.29 K/uL (0-0); Myelocytes % (manual) 2.7 %; Neutrophils # (manual) 8.47 K/uL (1.4-6.5); Neutrophils % (manual) 79.6 %; Poikilocytosis Present
[2021-11-02 17:29] LABS: Thyroid Stimulating Hormone 4.828 uIu/ml (0.300-4.500)
[2021-11-02] MEDS ORDERED: cefTRIAXone SODIUM 2,000 MG/70 ML BAG IV STA (17:34)
[2021-11-02] MEDS ORDERED: DOXYCYCLINE HYCLATE 100 MG CAP PO STA (17:35)
[2021-11-02 18:00] LABS: T4 Free Thyroxine 1.03 ng/dl (0.61-1.60)
--- NOTE | 2021-11-02 18:50 | History & Physical Report ---
Date of Service November 02, 2021 Assessment & Plan (1) COVID-19: (2) Wound of sacral region: (3) D-dimer, elevated: (4) History of CVA with residual deficit: (5) Seizure disorder: (6) HFrEF (heart failure with reduced ejection fraction): (7) Chronic systolic CHF (congestive heart failure): (8) Carotid stenosis: Plan: COVID infection with elevated D-dimer: -pt has been maintaining his SpO2 >93% consistently in the hospital -Procal neg -d-dimer elevated: CTA chest showed no PE -Dx with COVID on 10/30 and symptoms started on 10/21 -Pt does have elevated CRP ---- since pt is not hypoxic no need for dexamethasone at this time -will get daily CRP and admit to tele -will do mucinex BID, proning with assistance Stage 2 sacral wound: -pt is mostly bedbound -likely pressure ulcer -no sign of infection at this time -will get wound care consult HFrEF s/p ICD: -pt appeared slightly hypovolemic -at this time will encourage PO intake -due to COVID and HFrEF will hold IVF hydration -no need for echo at this time CAD and b/l carotid stenosis: -will continue dapt and statin Seizure, Osteoporosis, and depression: -continue home meds Diet: cardiac diet DVT PPx: Lovenox Code Status: FULL CODE (discussed with as well) Emergency Contact: Rosa () [phone] History of Present Illness Chief Complaint: worsening Cough and SOB Primary Care Provider: Richardson Sterling MD Pt is a 66 y/o M with hx of CVA with L sided weakness and speech difficulty (mostly bed bound), HFrEF s/p Single chamber ICD, CAD, HTN, HLD, Seizure, Osteoporosis, Depression, b/l carotid artery stenosis, hearing loss, recent dx of COVID brought into the ER for worsening cough and SOB. Per Epic record and EMS record: pt has episode of hypoxia SpO2 of 85% which improved to 95%. He is currently taking prednisone and on albuterol. At bedside: pt denied any CP but complained of cough and SOB. Denied any Abd pain, N/V. Allergies Allergy/AdvReac Type Severity Reaction Status Date / Time morphine Allergy Mild Itchiness Verified 05/25/19 17:26 naproxen Allergy Mild Hives Verified 05/25/19 17:26 Home Medications Medication Instructions Recorded Confirmed Type alendronate 70 mg tablet 70 mg PO WK 07/05/18 11/02/21 History aspirin 81 mg tablet,delayed 81 mg PO DAILY 07/05/18 11/02/21 History release (Aspirin Low Dose) atorvastatin 40 mg tablet 40 mg PO HS 07/05/18 11/02/21 History clopidogrel 75 mg tablet 75 mg PO DAILY 07/05/18 11/02/21 History dexlansoprazole 60 mg 60 mg PO DAILY 07/05/18 11/02/21 History capsule,biphase delayed release digoxin 125 mcg (0.125 mg) tablet 125 mcg PO DAILY 07/05/18 11/02/21 History divalproex 250 mg tablet,extended 250 mg PO HS 07/05/18 11/02/21 History release 24 hr divalproex 500 mg tablet,extended 1,000 mg PO HS 07/05/18 11/02/21 History release 24 hr fluoxetine 40 mg capsule 40 mg PO DAILY 07/05/18 11/02/21 History furosemide 20 mg tablet 20 mg PO Q2D 07/05/18 11/02/21 History multivitamin 1 tab PO DAILY 07/05/18 11/02/21 History thiamine HCl (vitamin B1) 100 mg 100 mg PO DAILY 07/05/18 11/02/21 History tablet coenzyme Q10 200 mg capsule 200 mg PO DAILY 05/25/19 11/02/21 History folic acid 1 mg tablet 1 mg PO DAILY 05/25/19 11/02/21 History omega-3 fatty acids 1,000 mg 1,000 mg PO BID 05/25/19 11/02/21 History capsule (Fish Oil Concentrate) Past Med/Surg History Medical History (Updated 11/02/21 @ 18:48 by Keyana Rodriguez MD) CAD (coronary artery disease) "Left and right heart catheterization report summary 09/21/2014: Proximal LAD has a 60% stenosis, a long 50% mid LAD disease Large branching OM2 has a 50% lesion The RCA has mild luminal irregularities The right sided pressures are mildly elevated without pulmonary hypertension (mean PA = 22 mm Hg), Mean wedge 13 mm Hg, LVEDP 14 mm hg, CO 4.1 (Thermodilution) " Carotid stenosis Convulsions "EEG abnormal in 2006- potential seizure focus in R temporal region 09/10/06" CVA (cerebral infarction) Depressive disorder (04/14/12) Dyslipidemia GERD (gastroesophageal reflux disease) HFrEF (heart failure with reduced ejection fraction) Ischemic cardiomyopathy April 24, 2018 TTE Interpretation Summary ([facility], Dr. Felix): There is a large sized apical, septal, anteroseptal, anterior, inferior, and lateral wall motion abnormality with hypokinesis to dyskinesis of the segments. The left ventricular myocardial thickness is normal in segments with normal wall motion. There is diffuse septal wall , anterior wall , apical wall thinning in a territory of LAD scar. Left ventricular systolic function is severely reduced. Ejection Fraction = 20-25%. No significant valvular pathology. Kidney stone Left spastic hemiplegia Osteoporosis PUD (peptic ulcer disease) S/P ORIF (open reduction internal fixation) fracture "01/07/07 ORIF left tibial plateau fracture " Thrombocytopenia Surgical History Cardiac defibrillator in situ Pacemaker S/P appendectomy Family History Mother , at 68 Myocardial infarction Father , at 68 Myocardial infarction Social History Smoking Status: Unknown if ever smoked Second Hand Exposure: No; Hx Alcohol Use: No Hx Substance Use: No Preferred Language: Latvian Communication Ability: Effective Ink Blender Required: No Beliefs That Will Affect Care: None marital status: Current Living Situation: Spouse Current Living Situation Comment: Lives with ex- and her son; has caregivers come in during the week other: Walks with a hemiwalker Feels Safe at Home: Yes Assistive Devices: Brace/Splint/Immobilizer and Walker Review of Systems Review of Systems: At least 10 Review of systems were reviewed and all negative except as indicated in HPI Physical Exam Physical Exam: General:. NAD HEENT:.Dry lips, Normocephalic and atraumatic, Normal Conjunctiva, EOMI, Sclera is non-icteric Lungs:.Good air entry b/l, with b/l lower lobe rales Heart:. Normal S1, S2, no murmur Abdominal:. ND, Soft, NT, normal BS MSK:Contracted L hand, L foot drop, b/l mild LE pitting edema Skin:large ([id number] stage to sacral wound, no discharge or drainage, no skin erythema Psych:it is difficult to understand the pt sometimes, AAOx3 Results & Data Results & Data ([facility]) Vital Signs (Past 12 Hours) Vital Signs Temp Pulse Pulse Resp BP BP Pulse Ox 11/02/21 16:18 85 24 96 11/02/21 16:04 37.2 C 84 78 24 133/72 133/72 95 Laboratory Results Short CBC 11/02/21 Range/Units 16:30 WBC 10.64 (4.8-10.8) K/uL Hgb 13.3 L (14.0-18.0) g/dL Hct 39.9 L (42-52) % Plt Count 372 (130-400) K/uL BMP 11/02/21 16:30 Sodium 140 Potassium 3.7 Chloride 108 H Carbon Dioxide 24 BUN 20 Creatinine 0.79 Glucose 166 H Calcium 8.9 Cardiac Enzymes 11/02/21 Range/Units 16:30 Troponin I < 0.03 (0-0.04) ng/ml Liver Function 11/02/21 Range/Units 16:30 Total Bilirubin 0.3 (0.2-1.0) mg/dl AST 24 (13-39) U/L ALT 22 (7-52) U/L Alkaline Phosphatase 46 (34-104) U/L Albumin 3.4 (3.4-5.0) gm/dl Diagnostic Findings Chest X-Ray 11/02/21 16:06 XR chest 1V portable CLINICAL HISTORY: cough, covid TECHNIQUE: Single frontal radiograph of the chest was obtained. Comparison: Comparison is made to chest one view 03/14/2019 FINDINGS: Single lead pacemaker defibrillator is seen. The cardiomediastinal silhouette is normal. Lungs are underinflated. There is questionable faint airspace opacity in the left lower lung. No evidence of pleural effusion or pneumothorax. IMPRESSION: Questionable faint airspace opacity in the left lower lung which may represent atelectasis, pneumonia, and/or aspiration. ACT 112: Negative or not required by law. Electronically signed by: Toni Chapman M.D. 11/02/2021 5:16 PM Chest CTA 11/02/21 17:34 CT angio chest PE protocol CLINICAL HISTORY: PE, COVId, +dimer TECHNIQUE: Multidetector row helical CT of the chest was performed with angiographic protocol. Coronal and sagittal reformations were obtained. Coronal and sagittal MIPS were obtained from the axial data set and were submitted for review. Automated dose lowering techniques and/or adjustment according to patient size were utilized for this exam. Comparison: Comparison is made to CT thorax 04/23/2018 FINDINGS: Exam is limited by patient motion. Lungs and pleura: Atelectasis versus scarring is seen in the dependent portions of the lungs. Heart and pericardium: Cardiomegaly is seen with biatrial enlargement. Vessels: No evidence of pulmonary embolism. Mediastinum and davida: Unremarkable. Chest wall and lower neck: Unremarkable. Abdomen: Unremarkable. Bones: Degenerative changes in the thoracic spine. IMPRESSION: No evidence of pulmonary embolism. No airspace disease is seen. ACT 112: Negative or not required by law. Electronically signed by: Toni Chapman M.D. 11/02/2021 7:26 PM Code Status & VTE Plan VTE Prophylaxis Plan VTE Prophylaxis will be ordered: Yes (1) Wound of sacral region Encounter type: initial encounter Qualified Code(s): S31.000A - Unspecified open wound of lower back and pelvis without penetration into retroperitoneum, initial encounter
[2021-11-02] MEDS ORDERED: OPTIRAY 320 125ml IV ONE (19:12)
--- NOTE | 2021-11-02 19:27 | CT Scan Report ---
CT angio chest PE protocol CLINICAL HISTORY: PE, COVId, +dimer TECHNIQUE: Multidetector row helical CT of the chest was performed with angiographic protocol. Tate l and sagittal reformations were obtained. Coronal and sagittal MIPS were obtained from the axial yenni a set and were submitted for review. Automated dose lowering techniques and/or adjustment according to patient size were utilized for this exam. Comparison: Comparison is made to CT thorax 04/23/2018 FINDINGS: Exam is limited by patient motion. Lungs and pleura: Atelectasis versus scarring is seen in the dependent portions of the lungs. Heart and pericardium: Cardiomegaly is seen with biatrial enlargement. Vessels: No evidence of pulmonary embolism. Mediastinum and davida: Unremarkable. Chest wall and lower neck: Unremarkable. Abdomen: Unremarkable. Bones: Degenerative changes in the thoracic spine. IMPRESSION: No evidence of pulmonary embolism. No airspace disease is seen. ACT 112: Negative or not required by law. Electronically signed by: Toni Chapman M.D. 11/02/2021 7:26 PM
[2021-11-02] MEDS ORDERED: ACETAMINOPHEN 325 MG TAB PO PRN (19:41)
[2021-11-02] MEDS ORDERED: POLYETHYLENE (MIRALAX) 17 GM PACK PO PRN (19:41)
[2021-11-02] MEDS: DIVALPROEX EXTENDED RELEASE 500 MG TAB PO SCH (22:08)
[2021-11-02] MEDS: DIVALPROEX EXTENDED RELEASE 250 MG TABCR PO SCH (22:09)
[2021-11-02] MEDS: ENOXAPARIN INJ 40 MG/0.4 ML SYR SQ SCH (22:09)
[2021-11-02] MEDS: guaiFENesin 600 MG TABCR PO SCH (22:10)
[2021-11-02] MEDS: ATORVASTATIN 40 MG TAB PO SCH (22:11)
[2021-11-02 23:19] LABS: Appearance Urine Clear (Clear); Bacteria Urine Automated Negative (Negative); Bilirubin Urine Negative (Negative); Blood Urine Negative (Negative); Color Urine Dark Yellow; Epithelial Cell Urine Auto 20-30 /lpf (0-5); Glucose Urine UA Negative (Negative); Ketones Urine Negative (Negative); Leukocyte Esterase Urine 1+ (Negative); Nitrite Urine Negative (Negative); Protein Urine Negative (Negative); Specific Gravity Urine 1.029 (1.000-1.030); Urobilinogen Urine Negative (Negative); pH Urine 5.5 (4.5-7.5)
[2021-11-03] MEDS ORDERED: FUROSEMIDE 20 MG TAB PO SCH (06:00)
[2021-11-03 07:14] LABS: Hematocrit (blood only) 37.3 % (42-52); Hemoglobin 12.6 g/dL (14.0-18.0); Mean Corpuscular Hemoglobin 32.5 pg (25-34); Mean Corpuscular Hgb Conc 33.8 g/dL (32-36); Mean Corpuscular Volume 96.1 fL (80-100); Mean Platelet Volume 10.5 fL (7.4-10.4); Platelet Count 353 K/uL (130-400); RDW Coefficient of Variation 16.2 % (11.5-14.5); RDW Standard Deviation 56.3 fL (36.4-46.3); Red Blood Count 3.88 M/uL (4.7-6.1); White Blood Count 9.76 K/uL (4.8-10.8)
[2021-11-03 07:35] LABS: BUN Creatinine Ratio 30.2 (10-20); C Reactive Protein 1.91 mg/dl (0-0.5); Calcium 8.5 mg/dl (8.5-10.1); Creatinine Clr Calc Pharmacy 110.1 ml/min; Est GFR (African American) 118.2 ml/min; Potassium 4.1 mmol/L (3.5-5.1)
[2021-11-03] MEDS: guaiFENesin 600 MG TABCR PO SCH ×2 (08:06→20:19)
[2021-11-03] MEDS: PANTOprazole 40 MG TAB PO SCH (08:06)
[2021-11-03] MEDS: MULTIVITAMIN TAB PO SCH (08:07)
[2021-11-03] MEDS: FOLIC ACID 1 MG TAB PO SCH (08:07)
[2021-11-03] MEDS: ASPIRIN 81 MG ECTAB PO SCH (08:07)
[2021-11-03] MEDS: THIAMINE HCL 100 MG TAB PO SCH (08:07)
[2021-11-03] MEDS: CLOPIDOGREL BISULFATE 75 MG TAB PO SCH (08:07)
[2021-11-03] MEDS: FLUoxetine HCL 20 MG CAP PO SCH (08:07)
[2021-11-03] MEDS: ENOXAPARIN INJ 40 MG/0.4 ML SYR SQ SCH ×2 (08:07→20:18)
--- NOTE | 2021-11-03 10:33 | Ultrasound Report ---
US venous doppler LE BI CLINICAL HISTORY: significantly elevated D dimer, bedbound . Leg swelling. Covid positive. COMPARISON: None available at the time of this dictation. TECHNIQUE: Left lower extremity real-time compression venous ultrasound with Color Doppler imaging. Utilizing real-time ultrasonic imaging multiple real time high-resolution ultrasonic images with comp ression and noncompression maneuvers of the deep venous system in addition to color doppler imaging w ere performed from the common femoral vein through the proximal calf veins. FINDINGS: Currently there is normal compressibility of the deep venous system from the common femoral vein thro ugh the proximal calf veins. No current evidence of acute thrombosis is identified. Impression: No evidence of deep venous thrombus. ACT 112: Negative or not required by law. Electronically signed by: John Paul Saxena M.D. 11/03/2021 10:32 AM
--- NOTE | 2021-11-03 13:00 | Hospitalist Progress Note ---
Date of Service November 03, 2021 Assessment & Plan (1) COVID-19: (2) Wound of sacral region: (3) D-dimer, elevated: (4) History of CVA with residual deficit: (5) Seizure disorder: (6) HFrEF (heart failure with reduced ejection fraction): (7) Chronic systolic CHF (congestive heart failure): (8) Carotid stenosis: Plan: COVID infection with elevated D-dimer: -pt has been maintaining his SpO2 >93% consistently in the hospital -Procal neg -d-dimer elevated: CTA chest showed no PE, US LE with no DVT -Dx with COVID on 10/30 and symptoms started on 10/21 -Pt does have elevated CRP but improving - since pt is not hypoxic no need for steroids at this time - continue mucinex, incentive spirometry Stage 2 sacral wound: -pt is mostly bedbound -likely pressure ulcer -no sign of infection at this time - WOCN eval pending but per Rosa, she has been taking care of the wound with nystatin powder and trying to keep it dry with condom catheter but he keeps pulling it off. She is asking for amaro catheter to let the wound dry and heal. Will order and continue at discharge. Already has home nurse coming to check on the wound. F/u with PCP HFrEF s/p ICD: - euvolemic, continue home po lasix q48 hrs. CAD and b/l carotid stenosis: continue dapt and statin Seizure, Osteoporosis, and depression: continue home meds DVT PPx: Lovenox Code Status: FULL CODE Emergency Contact: Rosa () [phone]. Updated over the phone and answered all questions. Disposition: Discharge tomorrow if remains stable. Per Rosa, there is no one to pick him up today and his son has already left for work. Admission and Anticipated Discharge Date Admission Date: November 02, 2021 Subjective Seen and examined at bedside. Intermittent cough but saturating well in room air, normal respiratory effort. No fever or chills. He feels fine. Eating well. Physical Exam Physical Exam: General: Sitting comfortably in bed eating lunch, not in distress, on room air HEENT: BASHIR, MMM Chest: Fair breath sounds bilaterally CVS: Regular rate and rhythm, normal heart sounds, no murmur Abdomen: Soft, non tender, not distended, normal bowel sounds Neuro: Awake, alert, conversing, non focal Extremities: No cyanosis, clubbing, some edema Results & Data Results & Data ([facility]) Vital Signs (Past 12 Hours) Vital Signs Temp Pulse Pulse Resp BP Pulse Ox 11/03/21 11:58 36.7 C 65 18 112/69 95 11/03/21 09:08 56 L 11/03/21 07:59 37.0 C 59 L 18 121/78 94 11/03/21 06:43 36.4 C L 62 20 114/70 96 11/03/21 04:00 36.3 C L 62 20 149/76 H 93 Laboratory Results Short CBC 11/02/21 11/03/21 Range/Units 16:30 06:28 WBC 10.64 9.76 (4.8-10.8) K/uL Hgb 13.3 L 12.6 L (14.0-18.0) g/dL Hct 39.9 L 37.3 L (42-52) % Plt Count 372 353 (130-400) K/uL BMP 11/02/21 11/03/21 16:30 06:28 Sodium 140 139 Potassium 3.7 4.1 Chloride 108 H 106 Carbon Dioxide 24 27 BUN 20 19 Creatinine 0.79 0.63 Glucose 166 H 111 H Calcium 8.9 8.5 Cardiac Enzymes 11/02/21 Range/Units 16:30 Troponin I < 0.03 (0-0.04) ng/ml Liver Function 11/02/21 Range/Units 16:30 Total Bilirubin 0.3 (0.2-1.0) mg/dl AST 24 (13-39) U/L ALT 22 (7-52) U/L Alkaline Phosphatase 46 (34-104) U/L Albumin 3.4 (3.4-5.0) gm/dl Urine 11/02/21 Range/Units 22:30 Urine Color Dark Yellow Urine Appearance Clear (Clear) Urine pH 5.5 (4.5-7.5) Ur Specific [place] 1.029 (1.000-1.030) Urine Protein Negative (Negative) Urine Glucose (UA) Negative (Negative) Diagnostic Findings Venous Doppler Study 11/03/21 07:51 US venous doppler LE BI CLINICAL HISTORY: significantly elevated D dimer, bedbound . Leg swelling. Covid positive. COMPARISON: None available at the time of this dictation. TECHNIQUE: Left lower extremity real-time compression venous ultrasound with Color Doppler imaging. Utilizing real-time ultrasonic imaging multiple real time high-resolution ultrasonic images with compression and noncompression maneuvers of the deep venous system in addition to color doppler imaging were performed from the common femoral vein through the proximal calf veins. FINDINGS: Currently there is normal compressibility of the deep venous system from the common femoral vein through the proximal calf veins. No current evidence of acute thrombosis is identified. Impression: No evidence of deep venous thrombus. ACT 112: Negative or not required by law. Electronically signed by: John Paul Saxena M.D. 11/03/2021 10:32 AM Medications Administered Current Inpatient Medications Acetaminophen (Acetaminophen 325 Mg Tab) 650 mg PO Q4H PRN PRN Reason: Pain or Fever Stop: 12/02/21 19:40 Aspirin (Aspirin 81 Mg Ectab) 81 mg PO DAILY ARMANDO Stop: 12/03/21 08:59 Last Admin: 11/03/21 08:07 Dose: 81 mg Documented by: Atorvastatin Calcium (Atorvastatin 40 Mg Tab) 40 mg PO HS [facility] Stop: 12/02/21 20:59 Last Admin: 11/02/21 22:11 Dose: 40 mg Documented by: Clopidogrel Bisulfate (Clopidogrel Bisulfate 75 Mg Tab) 75 mg PO DAILY ARMANDO Stop: 12/03/21 08:59 Last Admin: 11/03/21 08:07 Dose: 75 mg Documented by: Digoxin (Digoxin 0.125 Mg Tab) 0.125 mg PO Q24H ARMANDO Stop: 12/03/21 15:59 Divalproex Sodium (Divalproex Extended Release 500 Mg Tab) 1,000 mg PO HS ARMANDO Stop: 12/02/21 20:59 Last Admin: 11/02/21 22:08 Dose: 1,000 mg Documented by: Divalproex Sodium (Divalproex Extended Release 250 Mg Tabcr) 250 mg PO HS ARMANDO Stop: 12/02/21 20:59 Last Admin: 11/02/21 22:09 Dose: 250 mg Documented by: Enoxaparin Sodium (Enoxaparin Inj 40 Mg/0.4 Ml Syr) 40 mg SQ Q12H ARMANDO Stop: 12/02/21 20:59 Last Admin: 11/03/21 08:07 Dose: 40 mg Documented by: Fluoxetine HCl (Fluoxetine Hcl 20 Mg Cap) 40 mg PO DAILY ARMANDO Stop: 12/03/21 08:59 Last Admin: 11/03/21 08:07 Dose: 40 mg Documented by: Folic Acid (Folic Acid 1 Mg Tab) 1 mg PO DAILY ARMANDO Stop: 12/03/21 08:59 Last Admin: 11/03/21 08:07 Dose: 1 mg Documented by: Furosemide (Furosemide 20 Mg Tab) 20 mg PO Q48H ARMANDO Stop: 12/03/21 05:59 Last Admin: 11/03/21 05:58 Dose: 20 mg Documented by: Guaifenesin (Guaifenesin 600 Mg Tabcr) 1,200 mg PO Q12 ARMANDO Stop: 12/02/21 20:59 Last Admin: 11/03/21 08:06 Dose: 1,200 mg Documented by: Multivitamins (Multivitamin Tab) 1 tab PO QAM ARMANDO Stop: 12/03/21 08:59 Last Admin: 11/03/21 08:07 Dose: 1 tab Documented by: Pantoprazole Sodium (Pantoprazole 40 Mg Tab) 40 mg PO DAILY ARMANDO Stop: 12/03/21 08:59 Last Admin: 11/03/21 08:06 Dose: 40 mg Documented by: Polyethylene Glycol (Polyethylene (Miralax) 17 Gm Pack) 17 gm PO DAILY PRN PRN Reason: Constipation Stop: 12/02/21 19:40 Thiamine HCl (Thiamine Hcl 100 Mg Tab) 100 mg PO DAILY ARMANDO Stop: 12/03/21 08:59 Last Admin: 11/03/21 08:07 Dose: 100 mg Documented by: (1) Wound of sacral region Encounter type: initial encounter Qualified Code(s): S31.000A - Unspecified open wound of lower back and pelvis without penetration into retroperitoneum, initial encounter
[2021-11-03] MEDS ORDERED: DIGOXIN 0.125 MG TAB PO SCH (16:00)
[2021-11-03] MEDS: ATORVASTATIN 40 MG TAB PO SCH (20:19)
[2021-11-03] MEDS: DIVALPROEX EXTENDED RELEASE 500 MG TAB PO SCH (20:20)
[2021-11-03] MEDS: DIVALPROEX EXTENDED RELEASE 250 MG TABCR PO SCH (20:20)
[2021-11-04] MEDS ORDERED: LORazepam 0.5 MG TAB PO STA (00:32)
--- NOTE | 2021-11-04 06:31 | Electrocardiogram Report ---
Test Reason : Blood Pressure : / mmHG Vent. Rate : 081 BPM Atrial Rate : 081 BPM P-R Int : 108 ms QRS Dur : 084 ms QT Int : 364 ms P-R-T Axes : 042 000 163 degrees QTc Int : 422 ms Poor data quality, interpretation may be adversely affected Sinus rhythm with short OH Anteroseptal infarct (cited on or before 31-JAN-2014) Nonspecific T wave abnormality Abnormal ECG When compared with ECG of 25-MAY-2019 15:51, T wave inversion less evident in Anterolateral leads Confirmed by Naren Cherry ([id number]) on 11/04/2021 6:31:02 AM Referred By: REFERRED SELF Confirmed By:Naren Cherry
[2021-11-04] MEDS: ENOXAPARIN INJ 40 MG/0.4 ML SYR SQ SCH (08:08)
[2021-11-04] MEDS: guaiFENesin 600 MG TABCR PO SCH (08:10)
[2021-11-04] MEDS: CLOPIDOGREL BISULFATE 75 MG TAB PO SCH (08:10)
[2021-11-04] MEDS: PANTOprazole 40 MG TAB PO SCH (08:11)
[2021-11-04] MEDS: THIAMINE HCL 100 MG TAB PO SCH (08:11)
[2021-11-04] MEDS: FLUoxetine HCL 20 MG CAP PO SCH (08:12)
[2021-11-04] MEDS: MULTIVITAMIN TAB PO SCH (08:12)
[2021-11-04] MEDS: FOLIC ACID 1 MG TAB PO SCH (08:12)
[2021-11-04] MEDS: ASPIRIN 81 MG ECTAB PO SCH (08:12)
--- NOTE | 2021-11-04 11:38 | Discharge Summary ---
Date of Service November 04, 2021 Admission HPI Per Admitting Provider Pt is a 66 y/o M with hx of CVA with L sided weakness and speech difficulty (mostly bed bound), HFrEF s/p Single chamber ICD, CAD, HTN, HLD, Seizure, Osteoporosis, Depression, b/l carotid artery stenosis, hearing loss, recent dx of COVID brought into the ER for worsening cough and SOB. Per Epic record and EMS record: pt has episode of hypoxia SpO2 of 85% which improved to 95%. He is currently taking prednisone and on albuterol. At bedside: pt denied any CP but complained of cough and SOB. Denied any Abd pain, N/V. Admission Exam Per Admitting Provider General:.NAD HEENT:.Dry lips,Normocephalic and atraumatic, Normal Conjunctiva, EOMI, Sclera is non-icteric Lungs:.Good air entry b/l, with b/l lower lobe rales Heart:.Normal S1, S2, no murmur Abdominal:.ND, Soft, NT, normal BS MSK:Contracted L hand, L foot drop, b/l mild LE pitting edema Skin:large ([id number] stage to sacral wound, no discharge or drainage, no skin erythema Psych:it is difficult to understand the pt sometimes, AAOx3 Principal Diagnosis COVID 19 infection Discharge Data Allergies Allergy/AdvReac Type Severity Reaction Status Date / Time morphine Allergy Mild Itchiness Verified 05/25/19 17:26 naproxen Allergy Mild Hives Verified 05/25/19 17:26 Consultations 11/02/21 18:12 ED Decision to Admit Stat Ordered Studies 11/02/21 17:34 CT angio chest PE protocol Stat 11/03/21 07:51 US venous doppler LE BI Routine Hospital Course (1) COVID-19: (2) Wound of sacral region: (3) D-dimer, elevated: (4) History of CVA with residual deficit: (5) Seizure disorder: (6) HFrEF (heart failure with reduced ejection fraction): (7) Chronic systolic CHF (congestive heart failure): (8) Carotid stenosis: 1. COVID-19 infection with elevated D-dimer: - pt has been maintaining his SpO2 >93% consistently in the hospital on room air, normal respiratory efforts, chest fairly clear. Procal neg. - CTA chest showed no pneumonia or PE, US bilateral LE with no DVT. D dimer elevation is likely from COVID19. -Dx with COVID on 10/30 and symptoms started on 10/21 -Pt does have elevated CRP but improving - since pt is not hypoxic no need for steroids or other treatment at this time - Continue home isolation and conservative care. - continue incentive spirometry, OTC cough medication as needed 2. Stage 1 sacral wound with superficial skin tears: -pt is mostly bedbound, blanching erythema with some superficial ulcer with no evidence of infection. Seen by wound care. Recommended barrier cream daily and incontinence care- placed on amaro for the same at family request (she will follow up with PCP for amaro care). Offload pressure. If fails to close in 1-2 weeks, follow up with wound clinic at [phone]. - Home nurses already set up 3. HFrEF s/p ICD: euvolemic, continue home po lasix q48 hrs. 4. CAD and b/l carotid stenosis: continue aspirin, plavix and statin 5. Seizure, Osteoporosis, and depression: continue home meds Updated discharge plan with Rosa over the phone. Answered all her questions. Total Time Total Time Spent Total Time Spent (In Minutes): 39 Discharge Plan Discharge Items Patient Disposition: Home - Self-Care Reason For Visit: COVID Discharge Diagnosis: COVID 19 Activity: Resume your previous activity Non-emergency contact: Primary Care Provider Call non-emergency contact if: you have any medication questions, your symptoms worsen, you have a fever and your wound has increased drainage Follow-up/Referrals: Richardson Sterling MD [Primary Care Provider] - (Date & Time 11/11/2021 11:20 AM Provider Richardson Sterling MD Department Family Medicine [facility] ) Diet: Regular Addtl Attending Provider Instructions: Continue home isolation for COVID19. Watch your breathing and oxygen level. Continue incentive spirometer. You can take over the counter cough medicine as needed for cough. Your buttock wound doesn't look infected. We have placed amaro to let the buttock wound heal, at your request. Follow up with family doctor and home nurses. Pending Studies at Discharge: No Stand-Alone Forms: My [place], Smoking Cessation Medications and DC Order Prescriptions: Continued multivitamin Tablet 1 tab PO DAILY RF: 0 fluoxetine 40 mg capsule 40 mg PO DAILY RF: 0 atorvastatin 40 mg tablet 40 mg PO HS RF: 0 alendronate 70 mg tablet 70 mg PO WK RF: 0 thiamine HCl (vitamin B1) 100 mg Tablet 100 mg PO DAILY RF: 0 clopidogrel 75 mg tablet 75 mg PO DAILY RF: 0 aspirin [Aspirin Low Dose] 81 mg Tablet,Delayed Release (Dr/Ec) 81 mg PO DAILY RF: 0 divalproex 500 mg tablet extended release 24 hr 1,000 mg PO HS RF: 0 digoxin 125 mcg tablet 125 mcg PO DAILY RF: 0 furosemide 20 mg tablet 20 mg PO Q2D RF: 0 divalproex 250 mg tablet extended release 24 hr 250 mg PO HS RF: 0 dexlansoprazole 60 mg capsule,biphase delayed releas 60 mg PO DAILY RF: 0 omega-3 fatty acids [Fish Oil Concentrate] 1,000 mg Capsule 1,000 mg PO BID RF: 0 folic acid 1 mg Tablet 1 mg PO DAILY RF: 0 coenzyme Q10 200 mg Capsule 200 mg PO DAILY RF: 0 Discharge Orders: Discharge Order (Routine); Ordered 11/04/21 Ordered By: Juan Crowley Admission Data Admit Date/Time: 11/02/21 18:10 Attending Provider: Juan Crowley Admit Provider: Keyana Rodriguez Primary Care Provider: Richardson Sterling Other Providers: Keyana Rodriguez Other Interventions: Discharge Summary Assessment (RN) Last Done: 11/04/21 10:48
== END 2021-11-04 15:12 | disposition home health service (06) | DRG 178 ==
LOC: ED 15:54 → SUATTDRO 18:10 → 2N 18:10

== ENCOUNTER 2022-07-04 00:02 | Inpatient (IN) ==
[2022-07-04 01:45] LABS: Basophils # (auto) 0.09 K/uL (0-0.2); Basophils % (auto) 0.8 %; Eosinophils # (auto) 0.46 K/uL (0-0.50); Hematocrit (blood only) 39.7 % (40.1-51.0); Hemoglobin 13.2 g/dl (14.0-18.0); Immature Granulocytes # (auto) 0.12 K/uL (0.00-0.02); Lymphocytes # (auto) 3.52 K/uL (1.2-3.4); Lymphocytes % (auto) 30.6 %; Mean Corpuscular Hemoglobin 31.8 pg (25.0-34.0); Mean Corpuscular Hgb Conc 33.2 g/dL (32.0-36.0); Mean Corpuscular Volume 95.7 fL (80.0-100.0); Mean Platelet Volume 11.9 fL (9.4-12.4); Monocytes % (auto) 13.9 %; Neutrophils # (auto) 5.71 K/uL (1.4-6.5); Neutrophils % (auto) 49.7 %; Platelet Count 205 K/uL (130-400); RDW Coefficient of Variation 15.1 % (11.5-14.5); RDW Standard Deviation 53.1 fL (36.4-46.3); Red Blood Count 4.15 M/uL (4.63-6.08)
[2022-07-04 02:06] LABS: INR 1.1 (0.9-1.1); Prothrombin Time 11.2 Seconds (9.0-12.0)
[2022-07-04 02:15] LABS: Albumin Globulin Ratio 1.1 (0.9-2); BUN Creatinine Ratio 8.2 (10-20); Bilirubin,Total 0.5 mg/dl (0.2-1.0); Creatinine Clr Calc Pharmacy 66.3 ml/min; Est GFR (African American) 92.6 ml/min; Est GFR (Non-African American) 79.9 ml/min; Globulin 3.8 gm/dl (2.5-4.0); Potassium 4.4 mmol/L (3.5-5.1); Total Protein 7.8 gm/dl (6.0-8.3)
--- NOTE | 2022-07-04 02:35 | History & Physical Report ---
Date of Service July 04, 2022 Assessment & Plan (1) Gross hematuria: Plan: hx indwelling Magaña catheter since October 2021 due to functional incontinence (Magaña catheter placed as per family request to aid in decubitus wound healing) hx cardiac thrombus on Eliquis hx CAD/CVA/PVD on aspirin Hemoglobin currently stable Rule out structural pathology Transient tachycardia secondary to discomfort chronic systolic heart failure secondary to ischemic cardiomyopathy (EF 30%, TTE 2021) sp ICD, patient on the dry side hypertension, slightly elevated hyperlipidemia on statin Rx seizure disorder, controlled on current regimen, last outpatient follow-up with [facility] neurologist was in 2019 hx COPD, lung status stable Hyperglycemia likely prediabetes, hemoglobin A1c of 5.7 from 2018 past tobacco/alcohol abuse. OBS Medical telemetry given episodic tachycardia Hold aspirin and Eliquis for now CT abdomen pelvis Re: Hematuria Urology consult Re: Hematuria N.p.o. until CT resulted and patient patient seen by Urology Check hemoglobin A1c DVT prophylaxis. SCDs while Eliquis on hold Full code as per family. Patient ex-/caregiver requesting updates from providers. Ms. Trinity Henderson, contact #[phone]. Text document was generated using [id number] voice recognition software. It may contain grammatical or spelling errors. Kindly contact undersigned for clarification of any documentation item in question. History of Present Illness Chief Complaint: Hematuria Primary Care Provider: Richardson Sterling MD History obtained from patient, family, and records. Limited history from patient secondary to hearing impairment. Medical history significant for chronic systolic heart failure secondary to ischemic cardiomyopathy (EF 30%, TTE 2021) sp ICD, history of CAD/CVA/PVD, history cardiac thrombus on Eliquis, hypertension, hyperlipidemia, seizure di sorder, COPD, chronic anemia (baseline hemoglobin of 13), mood disorder, past tobacco/alcohol abuse. Last confinement October 2021 for COVID-19 illness. Patient discharged with Magaña catheter as per family request to aid in healing of sacral wound. Sacral wound has healed since. Intermittent self-limiting hematuria since Magaña catheter placed 8 months ago. Patient would pull on catheter from time to time thinking it would help him empty his bladder as per ex (caregiver). Patient not receptive to explanations as per ex . Ex- had discussed replacing Magaña catheter condom catheter this month since sacral wound had healed already. Magaña catheter tubing noted to be filled with clotted blood yesterday by family. . Unusual occurrence as per ex . She contacted home nurse asking for advice. Home nurse recommended just watching patient for now as catheter clots most of the time resolve without intervention as per .. Patient later noted to be uncomfortable, sweating, and yelling for help. EMS called to evaluate patient. Patient noted to be tachycardic upon arrival of EMS. Patient denies chest pain, shortness of breath. Admits to suprapubic discomfort. No fever, no chills. Patient brought to the ER for evaluation. Magaña catheter replaced but subsequently occluded with clot. Magaña catheter replaced and CBI subsequently initiated. MEDICAL HISTORY: As above. SURGERIES: ICD placement, knee surgery, appendectomy, hip surgery, dental surgery, tibia fracture surgery, FAMILY HISTORY: Heart disease. PERSONAL AND SOCIAL HISTORY: past tobacco/alcohol abuse, lives with ex-, on disability Allergies Allergy/AdvReac Type Severity Reaction Status Date / Time morphine Allergy Intermediate Itchiness Verified 07/04/22 00:47 naproxen Allergy Intermediate Hives Verified 07/04/22 00:47 Home Medications Medication Instructions Recorded Confirmed Type alendronate 70 mg tablet 70 mg PO WK 07/05/18 07/04/22 History atorvastatin 40 mg tablet 40 mg PO HS 07/05/18 07/04/22 History dexlansoprazole 60 mg 60 mg PO QAM 07/05/18 07/04/22 History capsule,biphase delayed release digoxin 125 mcg (0.125 mg) tablet 125 mcg PO QAM 07/05/18 07/04/22 History divalproex 250 mg tablet,extended 250 mg PO HS 07/05/18 07/04/22 History release 24 hr divalproex 500 mg tablet,extended 1,000 mg PO HS 07/05/18 07/04/22 History release 24 hr fluoxetine 40 mg capsule 40 mg PO QAM 07/05/18 07/04/22 History furosemide 20 mg tablet 20 mg PO QAM 07/05/18 07/04/22 History multivitamin 1 tab PO DAILY 07/05/18 07/04/22 History coenzyme Q10 200 mg capsule 200 mg PO DAILY 05/25/19 07/04/22 History apixaban 5 mg tablet (Eliquis) 5 mg PO BID 03/11/22 07/04/22 History aspirin 81 mg tablet,delayed 81 mg PO QAM 07/04/22 07/04/22 History release rosuvastatin 40 mg tablet 40 mg PO QAM 07/04/22 07/04/22 History Past Med/Surg History Medical History CAD (coronary artery disease) "Left and right heart catheterization report summary 09/21/2014: Proximal LAD has a 60% stenosis, a long 50% mid LAD disease Large branching OM2 has a 50% lesion The RCA has mild luminal irregularities The right sided pressures are mildly elevated without pulmonary hypertension (mean PA = 22 mm Hg), Mean wedge 13 mm Hg, LVEDP 14 mm hg, CO 4.1 (Thermodilution) " Carotid stenosis Convulsions "EEG abnormal in 2006- potential seizure focus in R temporal region 09/10/06" CVA (cerebral infarction) Depressive disorder (04/14/12) Dyslipidemia GERD (gastroesophageal reflux disease) HFrEF (heart failure with reduced ejection fraction) Ischemic cardiomyopathy April 24, 2018 TTE Interpretation Summary ([facility], Dr. Felix): There is a large sized apical, septal, anteroseptal, anterior, inferior, and lateral wall motion abnormality with hypokinesis to dyskinesis of the segments. The left ventricular myocardial thickness is normal in segments with normal wall motion. There is diffuse septal wall , anterior wall , apical wall thinning in a territory of LAD scar. Left ventricular systolic function is severely reduced. Ejection Fraction = 20-25%. No significant valvular pathology. 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 Required: No Beliefs That Will Affect Care: None marital status: Current Living Situation: Family Current Living Situation Comment: per ER ex is primary customer care professional Other Information That Helps Us Care for You: No other: Walks with a hemiwalker Feels Safe at Home: Yes Safety Concerns: Feels Safe At This Time Assistive Devices: Hospital Bed, Walker and Wheelchair Review of Systems Review of Systems: Could not be reliably obtained secondary to hearing impairment Physical Exam Physical Exam: GENERAL: Comfortable, hard of hearing, dysarthric (chronic ), no respiratory distress SKIN: Pallor, warm HEENT: Partial alopecia, pale palpebral conjunctivae, no ptosis, dry buccal mucosa NECK : Supple, no tenderness CHEST : Decreased breath sounds, no tenderness HEART : RRR, no obvious murmurs ABDOMEN: Some distention, suprapubic tenderness EXTREMITIES : No LE swelling/tenderness, no other conspicuous deformities noted NEUROLOGIC : Coherent, dysarthric, hard of hearing, chronic left hemiparesis, gait and stance not assessed Results & Data Results & Data ([facility]) Vital Signs (Past 12 Hours) Vital Signs Temp Pulse Resp BP Pulse Ox O2 Del Method 07/04/22 02:14 95 Room Air 07/04/22 02:01 98 H 17 94 Room Air 07/04/22 01:00 105 H 21 132/84 94 Room Air 07/03/22 23:56 37.0 C 120 H 22 97 Room Air Laboratory Results Laboratory Results WBC 11.50 K/ul (4.8-10.8) H 07/04/22 00:00 RBC 4.15 M/uL (4.63-6.08) L 07/04/22 00:00 Hgb 13.2 g/dl (14.0-18.0) L 07/04/22 00:00 Hct 39.7 % (40.1-51.0) L 07/04/22 00:00 MCV 95.7 fL (80.0-100.0) 07/04/22 00:00 MCH 31.8 pg (25.0-34.0) 07/04/22 00:00 MCHC 33.2 g/dL (32.0-36.0) 07/04/22 00:00 RDW Std Deviation 53.1 fL (36.4-46.3) H 07/04/22 00:00 RDW Coeff of Pam 15.1 % (11.5-14.5) H 07/04/22 00:00 Plt Count 205 K/uL (130-400) 07/04/22 00:00 MPV 11.9 fL (9.4-12.4) 07/04/22 00:00 Immature Gran % (Auto) 1.0 % 07/04/22 00:00 Neut % (Auto) 49.7 % 07/04/22 00:00 Lymph % (Auto) 30.6 % 07/04/22 00:00 Phelps % (Auto) 13.9 % 07/04/22 00:00 Eos % (Auto) 4.0 % 07/04/22 00:00 Baso % (Auto) 0.8 % 07/04/22 00:00 Neut # (Auto) 5.71 K/uL (1.4-6.5) 07/04/22 00:00 Lymph # (Auto) 3.52 K/uL (1.2-3.4) H 07/04/22 00:00 Phelps # (Auto) 1.60 K/uL (0.24-0.82) H 07/04/22 00:00 Eos # (Auto) 0.46 K/uL (0-0.50) 07/04/22 00:00 Baso # (Auto) 0.09 K/uL (0-0.2) 07/04/22 00:00 Immature Gran # (Auto) 0.12 K/uL (0.00-0.02) H 07/04/22 00:00 PT 11.2 Seconds (9.0-12.0) 07/04/22 00:00 INR 1.1 (0.9-1.1) 07/04/22 00:00 Sodium 135 mmol/L (136-145) L 07/04/22 00:00 Potassium 4.4 mmol/L (3.5-5.1) 07/04/22 00:00 Chloride 99 mmol/L (98-107) 07/04/22 00:00 Carbon Dioxide 15 mmol/L (21-32) L 07/04/22 00:00 Anion Gap 21 (3-11) H 07/04/22 00:00 BUN 8 mg/dl (6-23) 07/04/22 00:00 Creatinine 0.97 mg/dl (0.6-1.4) 07/04/22 00:00 Est Cr Clr Drug Dosing 66.3 ml/min 07/04/22 00:00 Est GFR ( Amer) 92.6 ml/min 07/04/22 00:00 Est GFR (Non-Af Amer) 79.9 ml/min 07/04/22 00:00 BUN/Creatinine Ratio 8.2 (10-20) L 07/04/22 00:00 Glucose 141 mg/dl (70-99(Fasting)) H 07/04/22 00:00 Calcium 10.0 mg/dl (8.5-10.1) 07/04/22 00:00 Magnesium 1.9 mg/dl (1.7-2.4) 07/04/22 00:00 Total Bilirubin 0.5 mg/dl (0.2-1.0) 07/04/22 00:00 AST 20 U/L (13-39) 07/04/22 00:00 ALT 13 U/L (7-52) 07/04/22 00:00 Alkaline Phosphatase 58 U/L (34-104) 07/04/22 00:00 Total Protein 7.8 gm/dl (6.0-8.3) 07/04/22 00:00 Albumin 4.0 gm/dl (3.4-5.0) 07/04/22 00:00 Globulin 3.8 gm/dl (2.5-4.0) 07/04/22 00:00 Albumin/Globulin Ratio 1.1 (0.9-2) 07/04/22 00:00 Procalcitonin < 0.05 ng/ml (0-0.5) 07/04/22 01:48 TSH 5.996 uIu/ml (0.300-4.500) H 07/04/22 01:48 Free T4 1.02 ng/dl (0.61-1.60) 07/04/22 01:48 Urine Color Dark Yellow 07/04/22 04:41 Urine Appearance Cloudy (Clear) A 07/04/22 04:41 Urine pH 7.0 (4.5-7.5) 07/04/22 04:41 Ur Specific Avilla 1.028 (1.000-1.030) 07/04/22 04:41 Urine Protein 4+ (Negative) H 07/04/22 04:41 Urine Glucose (UA) Trace (Negative) H 07/04/22 04:41 Urine Ketones Trace (Negative) H 07/04/22 04:41 Urine Blood 3+ (Negative) H 07/04/22 04:41 Urine Nitrite Negative (Negative) 07/04/22 04:41 Urine Bilirubin Negative (Negative) 07/04/22 04:41 Urine Urobilinogen Negative (Negative) 07/04/22 04:41 Ur Leukocyte Esterase Trace (Negative) H 07/04/22 04:41 Urine WBC (Auto) 1-5 /hpf (0-5) 07/04/22 04:41 Urine RBC (Auto) >30 /hpf (0-4) H 07/04/22 04:41 U Hyaline Cast (Auto) 0 /lpf (0-5) 07/04/22 04:41 U Epithel Cells (Auto) 0-5 /lpf (0-5) 07/04/22 04:41 Urine Bacteria (Auto) Negative (Negative) 07/04/22 04:41 SARS-CoV-2, RNA, NAAT NEGATIVE (NEGATIVE) 07/04/22 02:[address] abdomen pelvis initial read: Chest x-ray as per my interpretation atelectasis, elevated right hemidiaphragm EKG as per my interpretation : Rate 95, NSR, LAD, LAFB, septal infarct, diffuse T wave abnormalities
[2022-07-04 02:36] LABS: Thyroid Stimulating Hormone 5.996 uIu/ml (0.300-4.500)
[2022-07-04] MEDS ORDERED: SODIUM CHLORIDE 0.9% 1000ML 1,000 ML IV ONE (02:52)
--- NOTE | 2022-07-04 03:23 | Emergency Department Note ---
Impression & Plan Gross hematuria, Complication, blocked Magaña catheter, On apixaban therapy ED Provider Note NAME: MARTHA WELCH AGE: 67 SEX: M ARRIVES VIA: Ambulance INFORMANT: EMS, Patient ED PROVIDER(S): Jere Saez MD CHIEF COMPLAINT: Hematuria. PLAN: Disposition: Admit MEDICAL DECISION MAKING: The patient is a pleasant 67-year-old gentleman with a past medical history of CVA with residual deficits, ischemic cardiomyopathy, CAD, history of AICD, hy pertension, hyperlipidemia, indwelling Magaña catheter since October 2021 who presents to the emergency department from home via EMS for evaluation of cute onset hematuria in his catheter. The patient reports he thinks he may have pulled on it. The patient is on Eliquis for history of atrial fibrillation. On arrival patient is no acute distress, afebrile stable vital signs. He has gross hematuria and his catheter which was exchanged by nursing. New catheter was replaced and gross blood again repeatedly clogging drainage. Thus, three- way catheter was placed for irrigation. WBC 11.5K nonspecific. H/H 13.2/39.7 similar to prior values. Platelets within normal limits. Bicarbonate 15 with anion gap of 21 may reflect trauma related to the patient's accidental displacement of his catheter. LFTs are unremarkable. COVID-19 RNA, JORGE test was negative. Given the patient's acute hematuria requiring CBI we will proceed with admission. Case was discussed with Tammi Robertstrihealthist who will evaluate the patient for admission. Triage Nursing notes reviewed and agree them. Prior medical records reviewed Vital Signs: reviewed and remarkable for no significant abnormalities Differential diagnosis: Renal colic, UTI, appendicitis, diverticulitis, mesenteric ischemia, aortic pathology, infections, inflammatory bowel disease, PUD, biliary pathology, as well as other pathologies. ER treatment provided: See below. Diagnostics interpreted by me: ECG: Normal sinus rhythm, 96 bpm, no ectopy, no overt ST elevation or depressio n, QTC 454, QRS 88. Cardiac Monitoring: An order for continuous cardiac monitoring was placed and demonstrated Normal sinus rhythm, 96 bpm, no ectopy, Laboratory studies: See below Imaging studies: See below Consultation(s): Case was discussed with Tammi Robertstrihealthsánchez who will evaluate the patient for admission. HPI: The patient is a pleasant 67-year-old gentleman with a past medical history of CVA with residual deficits, ischemic cardiomyopathy, CAD, history of AICD, hypertension, hyperlipidemia, indwelling Magaña catheter since October 2021 who presents to the emergency department from home via EMS for evaluation of cute onset hematuria in his catheter. The patient reports he thinks he may have pulled on it. The patient is on Eliquis for history of atrial fibrillation. ROS: See above HPI for pertinent positives & negatives. A total of 10 systems reviewed and were otherwise negative. VITALS:See Below PHYSICAL EXAMINATION: GENERAL: Awake, alert, chronically ill-appearing, in no distress HENT: Normocephalic, atraumatic. Oropharynx with dry mucous membranes and otherwise unremarkable. EYES: Normal conjunctiva. Sclera non-icteric. NECK: Supple. No nuchal rigidity. FROM. No JVD. RESPIRATORY: Clear to auscultation. CARDIAC: Regular rate, normal rhythm. Extremities warm and well perfused. Pulses equal. ABDOMEN: Soft, non-distended. No tenderness to palpation. No rebound or guarding. No masses. RECTAL: Deferred. : Magaña catheter with gross hematuria. MUSCULOSKELETAL: Chest examination reveals no tenderness. The back is symmetrical on inspection without obvious abnormality. There is no CVA tenderness to palpation. No joint edema. LOWER EXTREMITIES: Calves are equal size bilaterally and non-tender. No edema. No discoloration. NEURO: Normal sensorium. No sensory or motor deficits noted. SKIN: No rash or jaundice noted. Jere Saez MD Past Med/Surg History Medical History CAD (coronary artery disease) "Left and right heart catheterization report summary 09/21/2014: Proximal LAD has a 60% stenosis, a long 50% mid LAD disease Large branching OM2 has a 50% lesion The RCA has mild luminal irregularities The right sided pressures are mildly elevated without pulmonary hypertension (mean PA = 22 mm Hg), Mean wedge 13 mm Hg, LVEDP 14 mm hg, CO 4.1 (Thermodilution) " Carotid stenosis Convulsions "EEG abnormal in 2006- potential seizure focus in R temporal region 09/10/06" CVA (cerebral infarction) Depressive disorder (04/14/12) Dyslipidemia GERD (gastroesophageal reflux disease) HFrEF (heart failure with reduced ejection fraction) Ischemic cardiomyopathy April 24, 2018 TTE Interpretation Summary ([facility], Dr. Felix): There is a large sized apical, septal, anteroseptal, anterior, inferior, and lateral wall motion abnormality with hypokinesis to dyskinesis of the segments. The left ventricular myocardial thickness is normal in segments with normal wall motion. There is diffuse septal wall , anterior wall , apical wall thinning in a territory of LAD scar. Left ventricular systolic function is severely reduced. Ejection Fraction = 20-25%. No significant valvular pathology. 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 Required: No Beliefs That Will Affect Care: None marital status: Current Living Situation: Spouse and Family Current Living Situation Comment: Lives with ex- and her son; has caregivers come in during the week other: Walks with a hemiwalker Feels Safe at Home: Yes Assistive Devices: Hospital Bed, Walker and Wheelchair Allergies Allergies Allergy/AdvReac Type Severity Reaction Status Date / Time morphine Allergy Intermediate Itchiness Verified 07/04/22 00:47 naproxen Allergy Intermediate Hives Verified 07/04/22 00:47 Home Meds Home Medications Medication Instructions Recorded Confirmed alendronate 70 mg tablet 70 mg PO WK 07/05/18 07/04/22 atorvastatin 40 mg tablet 40 mg PO HS 07/05/18 07/04/22 dexlansoprazole 60 mg 60 mg PO QAM 07/05/18 07/04/22 capsule,biphase delayed release digoxin 125 mcg (0.125 mg) tablet 125 mcg PO QAM 07/05/18 07/04/22 divalproex 250 mg tablet,extended 250 mg PO HS 07/05/18 07/04/22 release 24 hr divalproex 500 mg tablet,extended 1,000 mg PO HS 07/05/18 07/04/22 release 24 hr fluoxetine 40 mg capsule 40 mg PO QAM 07/05/18 07/04/22 furosemide 20 mg tablet 20 mg PO QAM 07/05/18 07/04/22 multivitamin 1 tab PO DAILY 07/05/18 07/04/22 coenzyme Q10 200 mg capsule 200 mg PO DAILY 05/25/19 07/04/22 apixaban 5 mg tablet (Eliquis) 5 mg PO BID 03/11/22 07/04/22 aspirin 81 mg tablet,delayed 81 mg PO QAM 07/04/22 07/04/22 release rosuvastatin 40 mg tablet 40 mg PO QAM 07/04/22 07/04/22 Results & Data (ED) Vital Signs Vital Signs - 24 hr 07/03/22 23:56 07/04/22 01:00 07/04/22 02:01 Temperature 37.0 C Temperature Source Oral Pulse Rate 120 H 105 H 98 H Pulse Rate from SpO2 Sensor 98 H Respiratory Rate 22 21 17 Blood Pressure 132/84 Blood Pressure Mean 100 Pulse Oximetry 97 94 94 Oxygen Delivery Method Room Air Room Air Room Air Sepsis Recent Fever Within 48 Hours No Sepsis New/Unexplained Change in Mental Status No Sepsis Action Taken by Nursing No Action Required 07/04/22 02:14 07/04/22 03:00 Temperature Temperature Source Pulse Rate 93 H Pulse Rate from SpO2 Sensor 93 H Respiratory Rate 17 Blood Pressure 112/72 Blood Pressure Mean 85 Pulse Oximetry 95 95 Oxygen Delivery Method Room Air Room Air Sepsis Recent Fever Within 48 Hours Sepsis New/Unexplained Change in Mental Status Sepsis Action Taken by Nursing Laboratory Data Attestation: I reviewed the patient's lab results. Result diagrams: 07/04/22 00:00 07/04/22 00:00 Lab Results 07/04/22 07/04/22 07/04/22 Range/Units 00:00 00:00 00:00 WBC 11.50 H (4.8-10.8) K/ul RBC 4.15 L (4.63-6.08) M/uL Hgb 13.2 L (14.0-18.0) g/dl Hct 39.7 L (40.1-51.0) % MCV 95.7 (80.0-100.0) fL MCH 31.8 (25.0-34.0) pg MCHC 33.2 (32.0-36.0) g/dL RDW Std Deviation 53.1 H (36.4-46.3) fL RDW Coeff of Pam 15.1 H (11.5-14.5) % Plt Count 205 (130-400) K/uL MPV 11.9 (9.4-12.4) fL Immature Gran % (Auto) 1.0 % Neut % (Auto) 49.7 % Lymph % (Auto) 30.6 % Morrill % (Auto) 13.9 % Eos % (Auto) 4.0 % Baso % (Auto) 0.8 % Neut # (Auto) 5.71 (1.4-6.5) K/uL Lymph # (Auto) 3.52 H (1.2-3.4) K/uL Morrill # (Auto) 1.60 H (0.24-0.82) K/uL Eos # (Auto) 0.46 (0-0.50) K/uL Baso # (Auto) 0.09 (0-0.2) K/uL Immature Gran # (Auto) 0.12 H (0.00-0.02) K/uL PT 11.2 (9.0-12.0) Seconds INR 1.1 (0.9-1.1) Sodium 135 L (136-145) mmol/L Potassium 4.4 (3.5-5.1) mmol/L Chloride 99 (98-107) mmol/L Carbon Dioxide 15 L (21-32) mmol/L Anion Gap 21 H (3-11) BUN 8 (6-23) mg/dl Creatinine 0.97 (0.6-1.4) mg/dl Est Cr Clr Drug Dosing 66.3 ml/min Est GFR ( Amer) 92.6 ml/min Est GFR (Non-Af Amer) 79.9 ml/min BUN/Creatinine Ratio 8.2 L (10-20) Glucose 141 H (70-99(Fasting)) mg/dl Calcium 10.0 (8.5-10.1) mg/dl Total Bilirubin 0.5 (0.2-1.0) mg/dl AST 20 (13-39) U/L ALT 13 (7-52) U/L Alkaline Phosphatase 58 (34-104) U/L Total Protein 7.8 (6.0-8.3) gm/dl Albumin 4.0 (3.4-5.0) gm/dl Globulin 3.8 (2.5-4.0) gm/dl Albumin/Globulin Ratio 1.1 (0.9-2) Procalcitonin (0-0.5) ng/ml TSH (0.300-4.500) uIu/ml SARS-CoV-2, RNA, NAAT (NEGATIVE) 07/04/22 07/04/22 07/04/22 Range/Units 01:48 01:48 02:00 WBC (4.8-10.8) K/ul RBC (4.63-6.08) M/uL Hgb (14.0-18.0) g/dl Hct (40.1-51.0) % MCV (80.0-100.0) fL MCH (25.0-34.0) pg MCHC (32.0-36.0) g/dL RDW Std Deviation (36.4-46.3) fL RDW Coeff of Pam (11.5-14.5) % Plt Count (130-400) K/uL MPV (9.4-12.4) fL Immature Gran % (Auto) % Neut % (Auto) % Lymph % (Auto) % Morrill % (Auto) % Eos % (Auto) % Baso % (Auto) % Neut # (Auto) (1.4-6.5) K/uL Lymph # (Auto) (1.2-3.4) K/uL Morrill # (Auto) (0.24-0.82) K/uL Eos # (Auto) (0-0.50) K/uL Baso # (Auto) (0-0.2) K/uL Immature Gran # (Auto) (0.00-0.02) K/uL PT (9.0-12.0) Seconds INR (0.9-1.1) Sodium (136-145) mmol/L Potassium (3.5-5.1) mmol/L Chloride (98-107) mmol/L Carbon Dioxide (21-32) mmol/L Anion Gap (3-11) BUN (6-23) mg/dl Creatinine (0.6-1.4) mg/dl Est Cr Clr Drug Dosing ml/min Est GFR ( Amer) ml/min Est GFR (Non-Af Amer) ml/min BUN/Creatinine Ratio (10-20) Glucose (70-99(Fasting)) mg/dl Calcium (8.5-10.1) mg/dl Total Bilirubin (0.2-1.0) mg/dl AST (13-39) U/L ALT (7-52) U/L Alkaline Phosphatase (34-104) U/L Total Protein (6.0-8.3) gm/dl Albumin (3.4-5.0) gm/dl Globulin (2.5-4.0) gm/dl Albumin/Globulin Ratio (0.9-2) Procalcitonin < 0.05 (0-0.5) ng/ml TSH 5.996 H (0.300-4.500) uIu/ml SARS-CoV-2, RNA, NAAT NEGATIVE (NEGATIVE) Administered Medications Sodium Chloride (Nss 1000ml) 1,000 mls @ 50 mls/hr IV .Q20H ONE Stop: 07/04/22 22:51 Last Admin: 07/04/22 03:16 Dose: 50 mls/hr Documented By: ZAHRAF Discharge Plan Visit Data Chief Complaint: Hematuria Stated Complaint: BLOODY CATHETAR ED Provider: Jere Saez Discharge Problem: Gross hematuria, Complication, blocked [place] catheter, On apixaban therapy Forms Stand Alone Forms: My [facility] Prescriptions Prescriptions: No Action Eliquis 5 mg tablet 5 mg PO BID multivitamin Tablet 1 tab PO DAILY fluoxetine 40 mg capsule 40 mg PO QAM atorvastatin 40 mg tablet 40 mg PO HS alendronate 70 mg tablet 70 mg PO WK Rx Instructions: MONDAYS divalproex 500 mg tablet extended release 24 hr 1,000 mg PO HS Rx Instructions: TAKE TWO 500 MG TABLETS ALONG WITH ONE 250 MG TALET TO EQUAL 1250 MG DOSE digoxin 125 mcg tablet 125 mcg PO QAM furosemide 20 mg tablet 20 mg PO QAM divalproex 250 mg tablet extended release 24 hr 250 mg PO HS Rx Instructions: TAKE ONE 250 MG TABLET ALONG WITH TWO 500 MG TABLETS TO EQUAL 1250 MG DOSE dexlansoprazole 60 mg capsule,biphase delayed releas 60 mg PO QAM coenzyme Q10 200 mg Capsule 200 mg PO DAILY aspirin 81 mg Tablet,Delayed Release (Dr/Ec) 81 mg PO QAM rosuvastatin 40 mg Tablet 40 mg PO QAM Referrals Referrals: Richardson Sterling MD [Primary Care Provider] -
[2022-07-04 03:39] LABS: T4 Free Thyroxine 1.02 ng/dl (0.61-1.60)
[2022-07-04] MEDS ORDERED: MAGNESIUM SULFATE / D5W 1 GM/100 ML BAG IV ONE (05:19)
[2022-07-04 05:28] LABS: Appearance Urine Cloudy (Clear); Bacteria Urine Automated Negative (Negative); Bilirubin Urine Negative (Negative); Blood Urine 3+ (Negative); Color Urine Dark Yellow; Epithelial Cell Urine Auto 0-5 /lpf (0-5); Glucose Urine UA Trace (Negative); Ketones Urine Trace (Negative); Leukocyte Esterase Urine Trace (Negative); Nitrite Urine Negative (Negative); Protein Urine 4+ (Negative); RBC Urine Automated >30 /hpf (0-4); Specific Gravity Urine 1.028 (1.000-1.030); Urobilinogen Urine Negative (Negative)
[2022-07-04] MEDS ORDERED: OPTIRAY 350 100ml IV ONE (05:33)
[2022-07-04 05:48] LABS: Cast Urine Automated 0 /lpf (0-5)
[2022-07-04] MEDS ORDERED: PROMETHAZINE HCL 12.5 MG in SODIUM CHLORIDE 0.9% 50 ML IV PRN (05:55)
[2022-07-04] MEDS ORDERED: ACETAMINOPHEN 325 MG TAB PO PRN (05:55)
[2022-07-04 06:18] LABS: Estimated Average Glucose 103 mg/dl; Hemoglobin A1C 5.2 % (4.5-5.6)
[2022-07-04 07:21] LABS: Hematocrit (blood only) 31.7 % (40.1-51.0); Hemoglobin 10.8 g/dl (14.0-18.0)
[2022-07-04 07:29] LABS: Partial Thromboplastin Ratio 1.1; Partial Thromboplastin Time 30.8 Seconds (21.0-31.0)
[2022-07-04 07:38] LABS: Digoxin 0.6 ng/ml (0.8-2.0)
--- NOTE | 2022-07-04 07:55 | CT Scan Report ---
ABDOMEN AND PELVIS CT WITH IV CONTRAST CT DOSE: 614.86 mGy.cm HISTORY: Acute hematuria hematuria TECHNIQUE: Multiaxial CT images of the abdomen and pelvis were performed following the IV administrat ion of 87 cc of Optiray, A dose lowering technique was utilized adhering to the principles of ALARA. COMPARISON STUDY: CT abdomen and pelvis 07/05/2018, CT lumbar spine 01/23/2019. FINDINGS: Left pectoral pacer. Dilated pulmonary arteries suggestive of pulmonary arterial hypertensi on. Cardiomegaly with extensive coronary artery calcifications. Clear lung bases. The study is limite d secondary to positioning and respiratory motion artifact. Diminutive spleen. Unremarkable pancreas and adrenal glands. Cholelithiasis without CT evidence of acute cholecystitis. Hepatic steatosis. Pat ent portal vein. 0.5 x 0.4 x 1.3 cm calculus within the right ureteropelvic junction. Mild urothelial thickening of th e right renal pelvis without hydronephrosis. Unremarkable appearance of the left kidney. Urinary blad anny wall thickening with partial distention and perivesicular stranding. A Magaña catheter is in place . Air and complex debris within the urinary bladder lumen. There is a peripherally enhancing centrall y hypodense prostatic lesion measuring 3.4 x 2.9 cm. Prostate is enlarged. Atherosclerosis of the aor ta without aneurysm. No lymphadenopathy identified. Fluid noted within the distal esophagus. No bowel obstruction or bowel wall thickening. There is mode rate rectal fecal retention. The appendix is not definitively seen. Unremarkable soft tissues. Degene rative changes of the spine, pelvis and hips. Avascular necrosis of the left greater the right femora l head with minimal associated bilateral reticular flattening. There are 2 cannulated screws in the l eft femoral neck. IMPRESSION: 1. 1.3 cm calculus within the right renal pelvis with mild urothelial thickening and no hydronephrosi s. This finding was called/faxed to the floor at time of dictation. 2. Magaña catheter within a decompressed urinary bladder containing intraluminal debris suggestive of clot. 3. Prostamegaly with peripherally enhancing 3.4 cm central prostatic lesion suspicious for an abscess . 4. Moderate rectal fecal retention. No bowel obstruction or bowel wall thickening. 5. Cholelithiasis. 6. Avascular necrosis of the femoral heads. 7. Additional findings as above. ACT 112: Negative or not required by law. The above report was generated using voice recognition software. It may contain grammatical, syntax o r spelling errors. Electronically signed by: Justin Conde M.D. 07/04/2022 7:54 AM
[2022-07-04] MEDS: MULTIVITAMIN TAB PO SCH (08:32)
[2022-07-04] MEDS: PANTOprazole 40 MG TAB PO SCH (08:33)
[2022-07-04] MEDS: ROSUVASTATIN CALCIUM 20 MG TAB PO SCH (08:33)
[2022-07-04] MEDS: FLUoxetine HCL 20 MG CAP PO SCH (08:33)
--- NOTE | 2022-07-04 08:40 | XRay Report ---
XR chest 1V portable HISTORY: Sepsis. COMPARISON: Chest 11/02/2021. FINDINGS: No pneumothorax. No pleural effusions. The cardiac silhouette remains mildly enlarged. Ther e are low lung volumes. There is a left-sided single lead pacemaker/defibrillator. No new focal lung consolidations to suggest a pneumonia. No evidence for pulmonary edema. Chronic deformity/degenerativ e changes within the left shoulder again noted. There are old, healed right-sided rib fractures. IMPRESSION: No significant change compared to the prior study. No acute process. ACT 112: Negative or not required by law. Electronically signed by: Deion Terry M.D. 07/04/2022 8:38 AM
--- NOTE | 2022-07-04 09:32 | Urology Consultation ---
Date of Consultation July 04, 2022 Assessment & Plan (1) Gross hematuria: Plan 67yo M with multiple comorbidities on chronic anticoagulation admitted with gross hematuria. CT a/p on admission notable for 1.3 cm calculus within the right renal pelvis with mild urothelial thickening and no hydronephrosis, Magaña catheter within decompressed bladder containing intraluminal debris suggestive of clot, and Prostatomegaly with peripherally enhancing 3.4 cm central prostatic lesion suspicious for an abscess. - Reviewed with Dr. De Los Santos, on-call urologist. - Pt afebrile and hemodynamically stable. - Labs reviewed-mild leukocytosis (11.50), hemoglobin 10.8, creatinine 0.97. Continue to trend. - UA on admission not suggestive of infection, no culture pending. - No plan for intervention at this time. OK to have a diet back from our standpoint. - Continue Magaña catheter and CBI on slow-mod, titrate as needed. OK to gently hand irrigate prn clots, retention, suprapubic pain. - Continue supportive care and recommend starting antibiotics. - Prostatic lesion suspicious for abscess noted on imaging seems unlikely given his clinical picture (no fevers, mild leukocytosis). Findings could possibly be d/t catheter trauma? However, would recommend initiating antibiotic course given this and while on CBI. - Anticoagulation on hold. - Discussed plan with hospital team. - Urology will follow. Supervising Physician Co-Signing Physician Notes Patient seen and examined CT reviewed and discussed with hospitalist team Clinically he does not seem to be showing signs of an acute prostate abscess He also is still currently anticoagulated I think it would be best to avoid any intervention for the prostate unless he shows clinical decompensation Hematuria seems to wax and wane even while watching him on moderate speed CBI We will observe overnight His CT does not show a copious amount of clot within the bladder Presumably, as his anticoagulation reverses his hematuria should resolve Ultimately there will be a balance between the benefits of anticoagulation and the risk of bleeding in the urine History of Present Illness Attending Physician: Arnulfo Johnson MD History of Present Illness 67-year-old male with a past medical history includingchronic systolic heart failure secondary to ischemic cardiomyopathy sp ICD, history of CAD/CVA/PVD, history cardiac thrombus on Eliquis, hypertension, hyperlipidemia, seizure disorder, COPD, chronic anemia (baseline hemoglobin of 13), mood disorder, past tobacco/alcohol abuse admitted with gross hematuria. Patient's family noted that the catheter tubing was filled with clotted blood yesterday. Family contacted home nursing, which recommended monitoring. However, patient later became noticeably uncomfortable and family called EMS. Patient was noted to be tachycardic upon arrival of EMS. In the ED, the Magaña catheter was replaced, but subsequently occluded with clot. A three-way catheter was then inserted and CBI initiated. Per chart review, patient with a history of an indwelling Magaña catheter since October 2021 due to functional incontinence (Magaña catheter placed as per family request to aid in decubitus wound healing). Family reports intermittent hematuria since the Magaña catheter was placed 8 months ago, but also notes that patient pulls on the catheter from time to time thinking it will help empty his bladder. Urology consulted for gross hematuria. Patient examined at bedside this AM. Awake, resting in bed on arrival. No acute distress. Denies any pain or discomfort at present. Denies suprapubic pain or discomfort. Magaña catheter intact, draining light red urine with CBI on slow-moderate. No clots noted in tubing at time of exam. Patient denies fevers or chills. Denies nausea or vomiting. HPI and ROS limited due to hearing impairment. CT abdomen pelvis with IV contrast- 1. 1.3 cm calculus within the right renal pelvis with mild urothelial thickening and no hydronephrosis. This finding was called/faxed to the floor at time of dictation. 2. Magaña catheter within a decompressed urinary bladder containing intraluminal debris suggestive of clot. 3. Prostamegaly with peripherally enhancing 3.4 cm central prostatic lesion suspicious for an abscess. 4. Moderate rectal fecal retention. No bowel obstruction or bowel wall thickening. 5. Cholelithiasis. 6. Avascular necrosis of the femoral heads. Allergies Allergy/AdvReac Type Severity Reaction Status Date / Time morphine Allergy Intermediate Itchiness Verified 07/04/22 00:47 naproxen Allergy Intermediate Hives Verified 07/04/22 00:47 Home Medications Medication Instructions Recorded Confirmed Type alendronate 70 mg tablet 70 mg PO WK 07/05/18 07/04/22 History atorvastatin 40 mg tablet 40 mg PO HS 07/05/18 07/04/22 History dexlansoprazole 60 mg 60 mg PO QAM 07/05/18 07/04/22 History capsule,biphase delayed release digoxin 125 mcg (0.125 mg) tablet 125 mcg PO QAM 07/05/18 07/04/22 History divalproex 250 mg tablet,extended 250 mg PO HS 07/05/18 07/04/22 History release 24 hr divalproex 500 mg tablet,extended 1,000 mg PO HS 07/05/18 07/04/22 History release 24 hr fluoxetine 40 mg capsule 40 mg PO QAM 07/05/18 07/04/22 History furosemide 20 mg tablet 20 mg PO QAM 07/05/18 07/04/22 History multivitamin 1 tab PO DAILY 07/05/18 07/04/22 History coenzyme Q10 200 mg capsule 200 mg PO DAILY 05/25/19 07/04/22 History apixaban 5 mg tablet (Eliquis) 5 mg PO BID 03/11/22 07/04/22 History aspirin 81 mg tablet,delayed 81 mg PO QAM 07/04/22 07/04/22 History release rosuvastatin 40 mg tablet 40 mg PO QAM 07/04/22 07/04/22 History Patient History Medical History CAD (coronary artery disease) "Left and right heart catheterization report summary 09/21/2014: Proximal LAD has a 60% stenosis, a long 50% mid LAD disease Large branching OM2 has a 50% lesion The RCA has mild luminal irregularities The right sided pressures are mildly elevated without pulmonary hypertension (mean PA = 22 mm Hg), Mean wedge 13 mm Hg, LVEDP 14 mm hg, CO 4.1 (Thermodilution) " Carotid stenosis Convulsions "EEG abnormal in 2006- potential seizure focus in R temporal region 09/10/06" CVA (cerebral infarction) Depressive disorder (04/14/12) Dyslipidemia GERD (gastroesophageal reflux disease) HFrEF (heart failure with reduced ejection fraction) Ischemic cardiomyopathy April 24, 2018 TTE Interpretation Summary ([facility], Dr. Felix): There is a large sized apical, septal, anteroseptal, anterior, inferior, and lateral wall motion abnormality with hypokinesis to dyskinesis of the segments. The left ventricular myocardial thickness is normal in segments with normal wall motion. There is diffuse septal wall , anterior wall , apical wall thinning in a territory of LAD scar. Left ventricular systolic function is severely reduced. Ejection Fraction = 20-25%. No significant valvular pathology. Kidney stone Left spastic hemiplegia Osteoporosis PUD (peptic ulcer disease) S/P ORIF (open reduction internal fixation) fracture "01/07/07 ORIF left tibial plateau fracture " Thrombocytopenia Surgical History Cardiac defibrillator in situ Pacemaker S/P appendectomy Family History Mother , at 68 Myocardial infarction Father , at 68 Myocardial infarction Social History Smoking Status: Unknown if ever smoked Second Hand Exposure: No; Hx Alcohol Use: No Hx Substance Use: No Preferred Language: Kazakh Communication Ability: Effective Communication Ability Comment: hx stroke Front Office Director Required: No Beliefs That Will Affect Care: None marital status: Current Living Situation: Family Current Living Situation Comment: per ER ex is primary care manager cna Other Information That Helps Us Care for You: No other: Walks with a hemiwalker Feels Safe at Home: Yes Safety Concerns: Feels Safe At This Time Assistive Devices: Hospital Bed, Walker and Wheelchair Review of Systems Review of Systems: ROS limited due to hearing impairment Physical Exam Constitutional: no acute distress ENMT: Ears: + hearing impairment Neck: normal visual inspection Respiratory: no respiratory distress and no labored breathing Gastrointestinal (Abdomen): Percussion/Palpation: abdomen soft; abdomen nontender and no guarding Musculoskeletal: Head/Neck/Chest: normocephalic Skin: Warm and dry, no visible rashes Neurologic: awake Psychiatric: Orientation: alert and oriented to person Genitourinary: Magaña catheter intact, draining light red urine with CBI on slowmoderate Results & Data ([facility]) Vital Signs (Past 12 Hours) Vital Signs Temp Pulse Pulse Resp BP BP Pulse Ox 07/04/22 05:56 07/04/22 05:56 37.2 C 94 H 18 113/68 95 07/04/22 04:30 86 15 95 07/04/22 04:01 85 24 133/108 H 97 07/04/22 03:00 93 H 17 112/72 95 07/04/22 02:14 95 07/04/22 02:01 98 H 17 94 07/04/22 01:00 105 H 21 132/84 94 07/03/22 23:56 37.0 C 120 H 22 97 O2 Del Method 07/04/22 05:56 Room Air 07/04/22 05:56 Room Air 07/04/22 04:30 Room Air 07/04/22 04:01 Room Air 07/04/22 03:00 Room Air 07/04/22 02:14 Room Air 07/04/22 02:01 Room Air 07/04/22 01:00 Room Air 07/03/22 23:56 Room Air PG Care Time/CCT Total # of Minutes Spent Total Time Spent with Patient: Total time spent is greater than 50% in coordination of care (as documented) at patient's floor/unit and/or counseling patient: Coding Level of Care Code 28802 Initial Inpt Care Lvl 2 Diagnoses Gross hematuria R31.0
--- NOTE | 2022-07-04 10:46 | Electrocardiogram Report ---
Test Reason : Blood Pressure : / mmHG Vent. Rate : 096 BPM Atrial Rate : 096 BPM P-R Int : 136 ms QRS Dur : 088 ms QT Int : 360 ms P-R-T Axes : 041 -11 102 degrees QTc Int : 454 ms Poor data quality, interpretation may be adversely affected Normal sinus rhythm Anteroseptal infarct (cited on or before 31-JAN-2014) Abnormal ECG When compared with ECG of 02-NOV-2021 16:32, Nonspecific T wave abnormality no longer evident in Inferior leads Confirmed by Saw Bazan ([id number]) on 07/04/2022 10:45:26 AM Referred By: REFERRED SELF Confirmed By:Eugene Bazan
[2022-07-04] MEDS: cefTRIAXone SODIUM 1,000 MG in DEXTROSE 5% 50 ML IV SCH (11:32)
--- NOTE | 2022-07-04 13:45 | Hospitalist Progress Note ---
Date of Service July 04, 2022 Assessment & Plan (1) Gross hematuria: Plan: Gross Hematuria Suspected prostatic abscess DD: Secondary to Traumatic Catheter, Secondary to chronic anticoagulation H/O Indwelling Magaña catheter since October 2021 due to functional incontinence Magaña catheter placed as per family request to aid in decubitus wound healing as per family Acute blood loss anemia --CT ABD:1.3 cm calculus within the right renal pelvis with mild urothelial thickening and no hydronephrosis. This finding was called/faxed to the floor at time of dictation. Magaña catheter within a decompressed urinary bladder containing intraluminal debris suggestive of clot. Prostatomegaly with peripherally enhancing 3.4 cm central prostatic lesion suspicious for an abscess. Moderate rectal fecal retention. No bowel obstruction or bowel wall thickening. Cholelithiasis. -Aspirin, Eliquis held Monitor CBC, transfuse PRBC as needed Continue continuous bladder irrigation Appreciate Urology input Empirically started on Rocephin No intervention needed currently as per urology H/O Cardiac thrombus Eliquis held due to hematuria CAD CVA PVD Aspirin held due to hematuria Continue Statin Chronic systolic heart failure secondary to ischemic cardiomyopathy Last EF 30%, TTE 2021) S/P ICD Clinically dry on presentation Continue gentle IV fluids Monitor volume status Resume home diuretics as able Hypertension seizure disorder continue home meds COPD Past tobacco/alcohol abuse. No signs of exacerbation DVT Px: SCDs Re: Hematuria Code Status Full code Admission and Anticipated Discharge Date Admission Date: July 04, 2022 Subjective Patient is seen and examined at bedside Very poor historian Discussed with urologist today Has hematuria Denies any chest pain, shortness of breath, abdominal pain Review of Systems 2 Review of Systems: All systems reviewed & are unremarkable except as noted in Subjective Physical Exam Physical Exam: Physical Exam: Vitals signs as noted above General Appearance:Moderately built and nourished, chronic ill appearing Head: normocephalic, Atraumatic Eyes: normal inspection, EOMI Neck: supple, Trachea midline Respiratory/Chest: Normal breath sounds, CTA, No accessory muscle use Cardiovascular: S1, S2, No murmur Abdomen/GI:Soft, Non tender, Bowel sounds present Extremities/Musculoskeletal:normal inspection, no edema Neurologic/Psych:Alert, awake, Left hemiplegia, hearing impairment Skin: normal color, warm Results & Data Results & Data ([facility]) Vital Signs (Past 12 Hours) Vital Signs Temp Pulse Pulse Resp BP BP Pulse Ox 07/04/22 11:00 36.8 C 69 18 96/58 L 95 07/04/22 08:00 90 07/04/22 05:56 07/04/22 05:56 37.2 C 94 H 18 113/68 95 07/04/22 04:30 86 15 95 07/04/22 04:01 85 24 133/108 H 97 07/04/22 03:00 93 H 17 112/72 95 07/04/22 02:14 95 07/04/22 02:01 98 H 17 94 O2 Del Method 07/04/22 11:00 Room Air 07/04/22 08:00 07/04/22 05:56 Room Air 07/04/22 05:56 Room Air 07/04/22 04:30 Room Air 07/04/22 04:01 Room Air 07/04/22 03:00 Room Air 07/04/22 02:14 Room Air 07/04/22 02:01 Room Air Laboratory Results Short CBC 07/04/22 07/04/22 Range/Units 00:00 06:58 WBC 11.50 H (4.8-10.8) K/ul Hgb 13.2 L 10.8 L (14.0-18.0) g/dl Hct 39.7 L 31.7 L (40.1-51.0) % Plt Count 205 (130-400) K/uL BMP 07/04/22 00:00 Sodium 135 L Potassium 4.4 Chloride 99 Carbon Dioxide 15 L BUN 8 Creatinine 0.97 Glucose 141 H Calcium 10.0 Liver Function 07/04/22 Range/Units 00:00 Total Bilirubin 0.5 (0.2-1.0) mg/dl AST 20 (13-39) U/L ALT 13 (7-52) U/L Alkaline Phosphatase 58 (34-104) U/L Albumin 4.0 (3.4-5.0) gm/dl Urine 07/04/22 Range/Units 04:41 Urine Color Dark Yellow Urine Appearance Cloudy A (Clear) Urine pH 7.0 (4.5-7.5) Ur Specific [place] 1.028 (1.000-1.030) Urine Protein 4+ H (Negative) Urine Glucose (UA) Trace H (Negative)
[2022-07-04] MEDS: SODIUM CHLORIDE 0.9% 1000ML 1,000 ML IV SCH (13:49)
[2022-07-04 15:22] LABS: Hematocrit (blood only) 28.7 % (40.1-51.0); Hemoglobin 9.6 g/dl (14.0-18.0)
[2022-07-04] MEDS: DIGOXIN 0.125 MG TAB PO SCH (16:15)
[2022-07-04] MEDS ORDERED: ATORVASTATIN 40 MG TAB PO SCH (21:00)
[2022-07-04] MEDS: DIVALPROEX EXTENDED RELEASE 250 MG TABCR PO SCH (21:41)
[2022-07-04] MEDS: DIVALPROEX EXTENDED RELEASE 500 MG TAB PO SCH (21:41)
[2022-07-05] MEDS: SODIUM CHLORIDE 0.9% 1000ML 1,000 ML IV SCH (01:19)
[2022-07-05 07:56] LABS: Hematocrit (blood only) 26.5 % (40.1-51.0); Hemoglobin 8.7 g/dl (14.0-18.0); Mean Corpuscular Hemoglobin 31.2 pg (25.0-34.0); Mean Corpuscular Hgb Conc 32.8 g/dL (32.0-36.0); Mean Platelet Volume 11.2 fL (9.4-12.4); Platelet Count 147 K/uL (130-400); RDW Coefficient of Variation 15.4 % (11.5-14.5); RDW Standard Deviation 53.3 fL (36.4-46.3); Red Blood Count 2.79 M/uL (4.63-6.08); White Blood Count 6.63 K/ul (4.8-10.8)
[2022-07-05] MEDS: MULTIVITAMIN TAB PO SCH (08:52)
[2022-07-05] MEDS: FLUoxetine HCL 20 MG CAP PO SCH (08:52)
[2022-07-05] MEDS: PANTOprazole 40 MG TAB PO SCH (08:52)
[2022-07-05] MEDS: ROSUVASTATIN CALCIUM 20 MG TAB PO SCH (08:52)
[2022-07-05 08:53] LABS: BUN Creatinine Ratio 13.8 (10-20); Calcium 8.3 mg/dl (8.5-10.1); Creatinine Clr Calc Pharmacy 102.1 ml/min; Est GFR (African American) 121.4 ml/min; Est GFR (Non-African American) 104.8 ml/min; Potassium 4.2 mmol/L (3.5-5.1)
--- NOTE | 2022-07-05 10:23 | Urology Progress Note ---
Date of Service July 05, 2022 Assessment & Plan (1) Gross hematuria: Plan: active bleeding has resolved with time/holding of anticoagulation I would like to see him remain clear for a full 24 hours prior to re-initiation of anticoagulation ultimately, though, this will be a balancing act CT suggestive of a possible prostate abscess - clinically not showing signs consistent with that diagnosis - I wonder if the imaging is showing some amaro trauma rather than the abscess - regardless, if he remains clinically stable - plan for conservative management only (abx, supportive care) Admission and Anticipated Discharge Date Admission Date: July 05, 2022 Subjective urine now clear - CBI clamped hgb has continued to drift, but source of bleeding now appears to have stopped clinically without signs of sepsis/systemic infection which implies the prostate imaging findings may not be an abscess Physical Exam Physical Exam: urine clear with CBI clamped Results & Data ([facility]) Vital Signs (Past 12 Hours) Vital Signs Temp Pulse Pulse Resp BP Pulse Ox O2 Del Method 07/05/22 07:49 68 07/05/22 06:40 36.6 C 73 18 103/64 95 Room Air 07/05/22 03:39 36.5 C 69 18 100/58 L 97 Room Air 07/04/22 23:03 36.9 C 74 18 96/59 L 95 Room Air PG Care Time/CCT Total # of Minutes Spent Total Time Spent with Patient: Total time spent is greater than 50% in coordination of care (as documented) at patient's floor/unit and/or counseling patient: Coding Level of Care Code 54045 Subseq Hosp Care Lvl 2 Diagnoses Gross hematuria R31.0
[2022-07-05] MEDS: cefTRIAXone SODIUM 1,000 MG in DEXTROSE 5% 50 ML IV SCH (11:11)
--- NOTE | 2022-07-05 14:03 | Hospitalist Progress Note ---
Date of Service July 05, 2022 Assessment & Plan (1) Gross hematuria: Plan: Gross Hematuria Suspected prostatic abscess--less likely DD:Trauma due to amaro DD: Secondary to Traumatic Catheter, Secondary to chronic anticoagulation H/O Indwelling Amaro catheter since October 2021 due to functional incontinence Amaro catheter placed as per family request to aid in decubitus wound healing as per family Acute blood loss anemia --CT ABD:1.3 cm calculus within the right renal pelvis with mild urothelial thickening and no hydronephrosis. This finding was called/faxed to the floor at time of dictation. Amaro catheter within a decompressed urinary bladder containing intraluminal debris suggestive of clot. Prostatomegaly with peripherally enhancing 3.4 cm central prostatic lesion suspicious for an abscess. Moderate rectal fecal retention. No bowel obstruction or bowel wall thickening. Cholelithiasis. -Aspirin, Eliquis held Transfuse PRBC as needed Continue continuous bladder irrigation Appreciate Urology input Empirically started on Rocephin--continue for now No intervention needed currently as per urology Hematuria resolved Monitor CBC H/O Cardiac thrombus Eliquis held due to hematuria CAD CVA PVD Aspirin held due to hematuria Continue Statin Chronic systolic heart failure secondary to ischemic cardiomyopathy Last EF 30%, TTE 2021) S/P ICD Clinically dry on presentation Continue gentle IV fluids Monitor volume status Resume home diuretics --likely tomorrow Hypertension seizure disorder continue home meds COPD Past tobacco/alcohol abuse. No signs of exacerbation DVT Px: SCDs Re: Hematuria Code Status Full code Admission and Anticipated Discharge Date Admission Date: July 05, 2022 Subjective Patient is seen and examined at bedside States feeling well today Hematuria resolved Offers no complaints Denies any chest pain, shortness of breath, abdominal pain Review of Systems Review of Systems: All systems reviewed & are unremarkable except as noted in Subjective Physical Exam Physical Exam: Physical Exam: Vitals signs as noted above General Appearance:Moderately built and nourished, chronic ill appearing Head: normocephalic, Atraumatic Eyes: normal inspection, EOMI Neck: supple, Trachea midline Respiratory/Chest: Normal breath sounds, CTA, No accessory muscle use Cardiovascular: S1, S2, No murmur Abdomen/GI:Soft, Non tender, Bowel sounds present Extremities/Musculoskeletal:normal inspection, no edema Neurologic/Psych:Alert, awake, Left hemiplegia, hearing impairment Skin: normal color, warm Results & Data Results & Data ([facility]) Vital Signs (Past 12 Hours) Vital Signs Temp Pulse Pulse Resp BP BP Pulse Ox 07/05/22 11:18 37.0 C 84 20 129/77 96 07/05/22 07:49 68 07/05/22 06:40 36.6 C 73 18 103/64 95 07/05/22 03:39 36.5 C 69 18 100/58 L 97 O2 Del Method 07/05/22 11:18 Room Air 07/05/22 07:49 07/05/22 06:40 Room Air 07/05/22 03:39 Room Air Laboratory Results Short CBC 07/04/22 07/05/22 Range/Units 15:01 07:24 WBC 6.63 (4.8-10.8) K/ul Hgb 9.6 L 8.7 L (14.0-18.0) g/dl Hct 28.7 L 26.5 L (40.1-51.0) % Plt Count 147 (130-400) K/uL BMP 07/05/22 07:24 Sodium 138 Potassium 4.2 Chloride 108 H Carbon Dioxide 25 BUN 8 Creatinine 0.58 L D Glucose 91 Calcium 8.3 L
[2022-07-05] MEDS ORDERED: PHENAZOPYRIDINE HCL 200 MG TAB PO PRN (16:01)
[2022-07-05] MEDS ORDERED: oxyCODONE/ACETAMINOPHEN 5mg/325mg TAB PO PRN (16:42)
[2022-07-05] MEDS: DIGOXIN 0.125 MG TAB PO SCH (16:56)
[2022-07-05] MEDS: DIVALPROEX EXTENDED RELEASE 500 MG TAB PO SCH (21:04)
[2022-07-05] MEDS: DIVALPROEX EXTENDED RELEASE 250 MG TABCR PO SCH (21:04)
--- NOTE | 2022-07-06 08:12 | Urology Progress Note ---
Date of Service July 06, 2022 Assessment & Plan (1) Gross hematuria: Plan: Urine has cleared appropriately I think it is okay to try to resume anticoagulationthis will be a careful balance If his urine remains clear, continue indefinitely If he begins to become bloody again we will have to carefully balance the pros and cons Admission and Anticipated Discharge Date Admission Date: July 05, 2022 Subjective No major issues overnight Urine remains clear despite turning off CBI yesterdaysome orange color from medications but no active bleeding Denies any subjective complaints today Physical Exam Physical Exam: Clear urine Results & Data ([facility]) Vital Signs (Past 12 Hours) Vital Signs Temp Pulse Pulse Resp BP Pulse Ox O2 Del Method 07/06/22 08:06 68 07/06/22 06:47 36.6 C 73 18 98/64 L 95 Room Air 07/06/22 04:00 36.7 C 81 18 105/76 95 Room Air 07/05/22 22:56 36.8 C 76 18 101/65 98 Room Air 07/05/22 22:15 76 PG Care Time/CCT Total # of Minutes Spent Total Time Spent with Patient: Total time spent is greater than 50% in coordination of care (as documented) at patient's floor/unit and/or counseling patient: Coding Level of Care Code 56859 Subseq Hosp Care Lvl 3 Diagnoses Gross hematuria R31.0
[2022-07-06 08:23] LABS: Hematocrit (blood only) 28.7 % (40.1-51.0); Hemoglobin 9.3 g/dl (14.0-18.0); Mean Corpuscular Hemoglobin 31.5 pg (25.0-34.0); Mean Corpuscular Hgb Conc 32.4 g/dL (32.0-36.0); Mean Corpuscular Volume 97.3 fL (80.0-100.0); Mean Platelet Volume 10.9 fL (9.4-12.4); Platelet Count 173 K/uL (130-400); RDW Coefficient of Variation 15.5 % (11.5-14.5); Red Blood Count 2.95 M/uL (4.63-6.08); White Blood Count 6.59 K/ul (4.8-10.8)
[2022-07-06] MEDS: MULTIVITAMIN TAB PO SCH (08:30)
[2022-07-06] MEDS: FLUoxetine HCL 20 MG CAP PO SCH (08:30)
[2022-07-06] MEDS: PANTOprazole 40 MG TAB PO SCH (08:30)
[2022-07-06] MEDS: ROSUVASTATIN CALCIUM 20 MG TAB PO SCH (08:31)
[2022-07-06 08:46] LABS: BUN Creatinine Ratio 12.5 (10-20); Creatinine Clr Calc Pharmacy 105.7 ml/min; Est GFR (African American) 123.2 ml/min; Est GFR (Non-African American) 106.3 ml/min; Potassium 3.8 mmol/L (3.5-5.1)
[2022-07-06] MEDS: cefTRIAXone SODIUM 1,000 MG in DEXTROSE 5% 50 ML IV SCH (10:45)
[2022-07-06] MEDS: HEPARIN SOD 5,000 UNIT/0.5 ML VIAL SQ SCH ×2 (11:47→20:03)
[2022-07-06] MEDS: ASPIRIN 81 MG ECTAB PO SCH (11:47)
--- NOTE | 2022-07-06 12:07 | Hospitalist Progress Note ---
Date of Service July 06, 2022 Assessment & Plan (1) Gross hematuria: Plan: Gross Hematuria Suspected prostatic abscess--less likely DD:Trauma due to amaro DD: Secondary to Traumatic Catheter, Secondary to chronic anticoagulation H/O Indwelling Amaro catheter since October 2021 due to functional incontinence Amaro catheter placed as per family request to aid in decubitus wound healing as per family Acute blood loss anemia --CT ABD:1.3 cm calculus within the right renal pelvis with mild urothelial thickening and no hydronephrosis. This finding was called/faxed to the floor at time of dictation. Amaro catheter within a decompressed urinary bladder containing intraluminal debris suggestive of clot. Prostatomegaly with peripherally enhancing 3.4 cm central prostatic lesion suspicious for an abscess. Moderate rectal fecal retention. No bowel obstruction or bowel wall thickening. Cholelithiasis. -Transfuse PRBC as needed Continue continuous bladder irrigation Appreciate Urology input Empirically started on Rocephin--continue for now No intervention needed currently as per urology Hematuria resolved Monitor CBC Resume Aspirin Also trial of Heparin SQ If no recurrence of hematuria, will restart Eliquis H/O Cardiac thrombus Eliquis held due to hematuria CAD CVA PVD Aspirin resumed Continue Statin Chronic systolic heart failure secondary to ischemic cardiomyopathy Last EF 30%, TTE 2021) S/P ICD Clinically dry on presentation Continue gentle IV fluids Monitor volume status Resume home diuretics when BP more stable Hypertension seizure disorder continue home meds COPD Past tobacco/alcohol abuse. No signs of exacerbation DVT Px: SCDs Trial of Heparin SQ Code Status Full code Admission and Anticipated Discharge Date Admission Date: July 05, 2022 Subjective Patient is seen and examined at bedside Dysuria resolved No new complaints No recurrence of hematuria Denies any chest pain, shortness of breath, abdominal pain Review of Systems Review of Systems: All systems reviewed & are unremarkable except as noted in Subjective Physical Exam Physical Exam: Physical Exam: Vitals signs as noted above General Appearance:Moderately built and nourished, chronic ill appearing Head: normocephalic, Atraumatic Eyes: normal inspection, EOMI Neck: supple, Trachea midline Respiratory/Chest: Normal breath sounds, CTA, No accessory muscle use Cardiovascular: S1, S2, No murmur Abdomen/GI:Soft, Non tender, Bowel sounds present Extremities/Musculoskeletal:normal inspection, no edema Neurologic/Psych:Alert, awake, Left hemiplegia, hearing impairment Skin: normal color, warm Results & Data Results & Data ([facility]) Vital Signs (Past 12 Hours) Vital Signs Temp Pulse Pulse Resp BP BP Pulse Ox 07/06/22 11:31 37.1 C 75 18 104/65 98 07/06/22 08:06 68 07/06/22 06:47 36.6 C 73 18 98/64 L 95 07/06/22 04:00 36.7 C 81 18 105/76 95 O2 Del Method 07/06/22 11:31 Room Air 07/06/22 08:06 07/06/22 06:47 Room Air 07/06/22 04:00 Room Air Laboratory Results Short CBC 07/06/22 Range/Units 07:27 WBC 6.59 (4.8-10.8) K/ul Hgb 9.3 L (14.0-18.0) g/dl Hct 28.7 L (40.1-51.0) % Plt Count 173 (130-400) K/uL BMP 07/06/22 07:27 Sodium 141 Potassium 3.8 Chloride 108 H Carbon Dioxide 28 BUN 7 Creatinine 0.56 L Glucose 87 Calcium 9.0
[2022-07-06] MEDS: DIGOXIN 0.125 MG TAB PO SCH (17:08)
[2022-07-06] MEDS: DIVALPROEX EXTENDED RELEASE 250 MG TABCR PO SCH (20:03)
[2022-07-06] MEDS: DIVALPROEX EXTENDED RELEASE 500 MG TAB PO SCH (20:03)
[2022-07-07] MEDS: ASPIRIN 81 MG ECTAB PO SCH (08:30)
[2022-07-07] MEDS: PANTOprazole 40 MG TAB PO SCH (08:30)
[2022-07-07] MEDS: FLUoxetine HCL 20 MG CAP PO SCH (08:30)
[2022-07-07] MEDS: ROSUVASTATIN CALCIUM 20 MG TAB PO SCH (08:31)
[2022-07-07] MEDS: HEPARIN SOD 5,000 UNIT/0.5 ML VIAL SQ SCH (08:31)
[2022-07-07] MEDS: MULTIVITAMIN TAB PO SCH (08:31)
[2022-07-07 09:10] LABS: Hematocrit (blood only) 29.9 % (40.1-51.0); Hemoglobin 9.9 g/dl (14.0-18.0)
[2022-07-07 09:41] LABS: BUN Creatinine Ratio 14.5 (10-20); Calcium 9.1 mg/dl (8.5-10.1); Creatinine Clr Calc Pharmacy 95.5 ml/min; Est GFR (African American) 118.1 ml/min; Est GFR (Non-African American) 101.9 ml/min; Potassium 3.3 mmol/L (3.5-5.1)
[2022-07-07] MEDS ORDERED: APIXABAN 5 MG TABLET PO ONE (10:15)
[2022-07-07] MEDS ORDERED: POTASSIUM CHLORIDE CRTAB 20 MEQ TABCR PO ONE (10:39)
[2022-07-07] MEDS: cefTRIAXone SODIUM 1,000 MG in DEXTROSE 5% 50 ML IV SCH (10:53)
--- NOTE | 2022-07-07 15:56 | Hospitalist Progress Note ---
Date of Service July 07, 2022 Assessment & Plan (1) Gross hematuria: Plan: Gross Hematuria Suspected prostatic abscess--less likely DD:Trauma due to amaro DD: Secondary to Traumatic Catheter, Secondary to chronic anticoagulation H/O Indwelling Amaro catheter since October 2021 due to functional incontinence Amaro catheter placed as per family request to aid in decubitus wound healing as per family Acute blood loss anemia --CT ABD:1.3 cm calculus within the right renal pelvis with mild urothelial thickening and no hydronephrosis. This finding was called/faxed to the floor at time of dictation. Amaro catheter within a decompressed urinary bladder containing intraluminal debris suggestive of clot. Prostatomegaly with peripherally enhancing 3.4 cm central prostatic lesion suspicious for an abscess. Moderate rectal fecal retention. No bowel obstruction or bowel wall thickening. Cholelithiasis. -Transfuse PRBC as needed Continue continuous bladder irrigation Appreciate Urology input Empirically started on Rocephin--continue for now No intervention needed currently as per urology Hematuria resolved Monitor CBC No recurrence of hematuria while on Aspirin, SQ Heparin Resume Eliquis today H/O Cardiac thrombus Eliquis initially held due to hematuria Eliquis resumed CAD CVA PVD Aspirin resumed Continue Statin Chronic systolic heart failure secondary to ischemic cardiomyopathy Last EF 30%, TTE 2021) S/P ICD Clinically dry on presentation Continue gentle IV fluids Monitor volume status Resume home diuretics as able Hypertension seizure disorder continue home meds COPD Past tobacco/alcohol abuse. No signs of exacerbation DVT Px: SCDs Eliquis Code Status Full code Disposition Home with Home Health Admission and Anticipated Discharge Date Admission Date: July 05, 2022 Subjective Patient is seen and examined at bedside States feeling well No complaints No recurrence of hematuria while on aspirin, SQ heparin Denies any chest pain, shortness of breath, abdominal pain Review of Systems Review of Systems: All systems reviewed & are unremarkable except as noted in Subjective Physical Exam Physical Exam: Physical Exam: Vitals signs as noted above General Appearance:Moderately built and nourished, chronic ill appearing Head: normocephalic, Atraumatic Eyes: normal inspection, EOMI Neck: supple, Trachea midline Respiratory/Chest: Normal breath sounds, CTA, No accessory muscle use Cardiovascular: S1, S2, No murmur Abdomen/GI:Soft, Non tender, Bowel sounds present Extremities/Musculoskeletal:normal inspection, no edema Neurologic/Psych:Alert, awake, Left hemiplegia, hearing impairment Skin: normal color, warm Results & Data Results & Data ([facility]) Vital Signs (Past 12 Hours) Vital Signs Temp Pulse Pulse Resp BP BP Pulse Ox 07/07/22 15:41 36.5 C 74 18 114/61 96 07/07/22 14:23 68 07/07/22 12:00 37.1 C 73 18 98/65 L 97 07/07/22 07:34 36.9 C 74 18 120/70 90 07/07/22 06:14 64 07/07/22 04:19 37.1 C 86 20 102/68 97 O2 Del Method 07/07/22 15:41 Room Air 07/07/22 14:23 07/07/22 12:00 Room Air 07/07/22 07:34 Room Air 07/07/22 06:14 07/07/22 04:19 Room Air Laboratory Results Short CBC 07/07/22 Range/Units 08:23 Hgb 9.9 L (14.0-18.0) g/dl Hct 29.9 L (40.1-51.0) % BMP 07/07/22 08:23 Sodium 138 Potassium 3.3 L Chloride 105 Carbon Dioxide 28 BUN 9 Creatinine 0.62 Glucose 90 Calcium 9.1
[2022-07-07] MEDS: DIGOXIN 0.125 MG TAB PO SCH (16:21)
[2022-07-07] MEDS: APIXABAN 5 MG TABLET PO SCH (20:49)
[2022-07-07] MEDS: DIVALPROEX EXTENDED RELEASE 250 MG TABCR PO SCH (20:49)
[2022-07-07] MEDS: DIVALPROEX EXTENDED RELEASE 500 MG TAB PO SCH (20:49)
[2022-07-08 07:16] LABS: Hematocrit (blood only) 26.2 % (40.1-51.0); Hemoglobin 8.8 g/dl (14.0-18.0)
[2022-07-08 07:37] LABS: BUN Creatinine Ratio 14.9 (10-20); Calcium 8.7 mg/dl (8.5-10.1); Creatinine Clr Calc Pharmacy 88.4 ml/min; Est GFR (African American) 114.4 ml/min; Est GFR (Non-African American) 98.7 ml/min; Potassium 3.9 mmol/L (3.5-5.1)
--- NOTE | 2022-07-08 09:04 | Urology Progress Note ---
Date of Service July 08, 2022 Assessment & Plan (1) Gross hematuria: Plan: Urine has remained clear despite restarting anticoagulation We will begin to follow from a distancehe may experience some recurrent bleeding in the future particularly with significant movement or Mag[place] manipulation, however I think the benefits of anticoagulation outweigh the risks Please call if there are major issues Admission and Anticipated Discharge Date Admission Date: July 05, 2022 Subjective Seen and evaluated this morning Resting comfortably Denies any significant complaints Urine clear in the Foleyresumed anticoagulation yesterday Physical Exam Physical Exam: Clear urine Results & Data ([facility]) Vital Signs (Past 12 Hours) Vital Signs Temp Pulse Pulse Resp BP Pulse Ox O2 Del Method 07/08/22 07:38 37.3 C 84 16 99/62 L 92 Room Air 07/08/22 04:00 37.0 C 75 18 104/67 96 Room Air 07/08/22 00:00 73 07/07/22 23:56 36.7 C 78 18 115/73 95 Room Air PG Care Time/CCT Total # of Minutes Spent Total Time Spent with Patient: Total time spent is greater than 50% in coordination of care (as documented) at patient's floor/unit and/or counseling patient: Coding Level of Care Code 52273 Subseq Hosp Care Lvl 2 Diagnoses Gross hematuria R31.0
--- NOTE | 2022-07-08 09:09 | Urology Progress Note ---
Date of Service July 08, 2022 Assessment & Plan Admission and Anticipated Discharge Date Admission Date: July 05, 2022 Subjective Pt seen and evaluated this morning. Resting comfortably. Denies any significant complaints Urine clear in the Foleyresumed anticoagulation yesterday Results & Data ([facility]) Vital Signs (Past 12 Hours) Vital Signs Temp Pulse Pulse Resp BP Pulse Ox O2 Del Method 07/08/22 07:38 37.3 C 84 16 99/62 L 92 Room Air 07/08/22 04:00 37.0 C 75 18 104/67 96 Room Air 07/08/22 00:00 73 07/07/22 23:56 36.7 C 78 18 115/73 95 Room Air PG Care Time/CCT Total # of Minutes Spent Total Time Spent with Patient: Total time spent is greater than 50% in coordination of care (as documented) at patient's floor/unit and/or counseling patient: Coding
[2022-07-08] MEDS: PANTOprazole 40 MG TAB PO SCH (09:56)
[2022-07-08] MEDS: MULTIVITAMIN TAB PO SCH (09:56)
[2022-07-08] MEDS: ASPIRIN 81 MG ECTAB PO SCH (09:56)
[2022-07-08] MEDS: ROSUVASTATIN CALCIUM 20 MG TAB PO SCH (09:56)
[2022-07-08] MEDS: FLUoxetine HCL 20 MG CAP PO SCH (09:56)
[2022-07-08] MEDS: APIXABAN 5 MG TABLET PO SCH (09:56)
[2022-07-08] MEDS: cefTRIAXone SODIUM 1,000 MG in DEXTROSE 5% 50 ML IV SCH (10:36)
[2022-07-08 13:24] LABS: Hemoglobin 9.4 g/dl (14.0-18.0)
[2022-07-08] MEDS ORDERED: PHENAZOPYRIDINE HCL 100 MG TAB PO PRN (13:37)
--- NOTE | 2022-07-08 13:38 | Hospitalist Progress Note ---
Date of Service July 08, 2022 Assessment & Plan (1) Gross hematuria: Plan: Gross Hematuria Suspected prostatic abscess--less likely DD:Trauma due to [place] DD: Secondary to Traumatic Catheter, Secondary to chronic anticoagulation H/O Indwelling [place] catheter since October 2021 due to functional incontinence [place] catheter placed as per family request to aid in decubitus wound healing as per family Acute blood loss anemia --CT ABD:1.3 cm calculus within the right renal pelvis with mild urothelial thickening and no hydronephrosis. This finding was called/faxed to the floor at time of dictation. [place] catheter within a decompressed urinary bladder containing intraluminal debris suggestive of clot. Prostatomegaly with peripherally enhancing 3.4 cm central prostatic lesion suspicious for an abscess. Moderate rectal fecal retention. No bowel obstruction or bowel wall thickening. Cholelithiasis. -Transfuse PRBC as needed Completed bladder irrigation Appreciate Urology input Empirically received Rocephin No intervention needed currently as per urology Hematuria resolved Monitor CBC No recurrence of hematuria while on Aspirin, Eliquis Although there is risk for recurrence of bleeding, given risks Vs Benefits--anticoagulation resumed Updated Patient and Patient's Maintainer Operator (Rosa) who agrees with the plan Advised to follow-up with urology upon discharge H/O Cardiac thrombus Eliquis initially held due to hematuria Eliquis resumed CAD CVA PVD Aspirin resumed Continue Statin Chronic systolic heart failure secondary to ischemic cardiomyopathy Last EF 30%, TTE 2021) S/P ICD Clinically dry on presentation Received gentle IV fluids Monitor volume status Resume home diuretics upon discharge Hypertension seizure disorder continue home meds COPD Past tobacco/alcohol abuse. No signs of exacerbation DVT Px: SCDs Eliquis Code Status Full code Disposition Home with Home Health Admission and Anticipated Discharge Date Admission Date: July 05, 2022 Subjective Patient is seen and examined at bedside No recurrence of bleeding Hb Stable Updated patient's family over the phone Denies any chest pain, shortness of breath, abdominal pain No other complaints Plan to discharge home today Review of Systems Review of Systems: All systems reviewed & are unremarkable except as noted in Subjective Physical Exam Physical Exam: Physical Exam: Vitals signs as noted above General Appearance:Moderately built and nourished, chronic ill appearing Head: normocephalic, Atraumatic Eyes: normal inspection, EOMI Neck: supple, Trachea midline Respiratory/Chest: Normal breath sounds, CTA, No accessory muscle use Cardiovascular: S1, S2, No murmur Abdomen/GI:Soft, Non tender, Bowel sounds present Extremities/Musculoskeletal:normal inspection, no edema Neurologic/Psych:Alert, awake, Left hemiplegia, hearing impairment Skin: normal color, warm Results & Data Results & Data ([facility]) Vital Signs (Past 12 Hours) Vital Signs Temp Pulse Pulse Resp BP Pulse Ox O2 Del Method 07/08/22 11:30 36.8 C 78 18 98/61 L 98 Room Air 07/08/22 06:12 72 07/08/22 07:38 37.3 C 84 16 99/62 L 92 Room Air 07/08/22 04:00 37.0 C 75 18 104/67 96 Room Air Laboratory Results Short CBC 07/08/22 07/08/22 Range/Units 06:55 13:05 Hgb 8.8 L 9.4 L (14.0-18.0) g/dl Hct 26.2 L 28.0 L (40.1-51.0) % BMP 07/08/22 06:55 Sodium 138 Potassium 3.9 Chloride 107 Carbon Dioxide 28 BUN 10 Creatinine 0.67 Glucose 93 Calcium 8.7
--- NOTE | 2022-07-08 13:50 | Discharge Summary ---
Date of Service July 08, 2022 Admission HPI Per Admitting Provider History obtained from patient, family, and records. Limited history from patient secondary to hearing impairment. Medical history significant for chronic systolic heart failure secondary to ischemic cardiomyopathy (EF 30%, TTE 2021) sp ICD, history of CAD/CVA/PVD, history cardiac thrombus on Eliquis, hypertension, hyperlipidemia, seizure disorder, COPD, chronic anemia (baseline hemoglobin of 13), mood disorder, past tobacco/alcohol abuse. Last confinement October 2021 for COVID-19 illness. Patient discharged with Magaña catheter as per family request to aid in healing of sacral wound. Sacral wound has healed since. Intermittent self-limiting hematuria since Magaña catheter placed 8 months ago. Patient would pull on catheter from time to time thinking it would help him empty his bladder as per ex (caregiver). Patient not receptive to explanations as per ex . Ex- had discussed replacing Magaña catheter condom catheter this month since sacral wound had healed already. Magaña catheter tubing noted to be filled with clotted blood yesterday by family. . Unusual occurrence as per ex . She contacted home nurse asking for advice. Home nurse recommended just watching patient for now as catheter clots most of the time resolve without intervention as per .. Patient later noted to be uncomfortable, sweating, and yelling for help. EMS called to evaluate patient. Patient noted to be tachycardic upon arrival of EMS. Patient denies chest pain, shortness of breath. Admits to suprapubic discomfort. No fever, no chills. Patient brought to the ER for evaluation. Magaña catheter replaced but subsequently occluded with clot. Magaña catheter replaced and CBI subsequently initiated. MEDICAL HISTORY: As above. SURGERIES: ICD placement, knee surgery, appendectomy, hip surgery, dental surgery, tibia fracture surgery, FAMILY HISTORY: Heart disease. PERSONAL AND SOCIAL HISTORY: past tobacco/alcohol abuse, lives with ex-, on disability Admission Exam Per Admitting Provider Physical Exam Physical Exam: GENERAL: Comfortable, hard of hearing, dysarthric (chronic ), no respiratory distress SKIN: Pallor, warm HEENT: Partial alopecia, pale palpebral conjunctivae, no ptosis, dry buccal mucosa NECK : Supple, no tenderness CHEST : Decreased breath sounds, no tenderness HEART : RRR, no obvious murmurs ABDOMEN: Some distention, suprapubic tenderness EXTREMITIES : No LE swelling/tenderness, no other conspicuous deformities noted NEUROLOGIC : Coherent, dysarthric, hard of hearing, chronic left hemiparesis, gait and stance not assessed Principal Diagnosis Gross Hematuria Discharge Data Allergies Allergy/AdvReac Type Severity Reaction Status Date / Time morphine Allergy Intermediate Itchiness Verified 07/04/22 00:47 naproxen Allergy Intermediate Hives Verified 07/04/22 00:47 Consultations 07/04/22 02:20 ED Decision to Admit Stat 07/04/22 05:55 Consult Urology Routine Procedures Performed Laboratory Results WBC 6.59 K/ul (4.8-10.8) 07/06/22 07:27 RBC 2.95 M/uL (4.63-6.08) L 07/06/22 07:27 Hgb 9.4 g/dl (14.0-18.0) L 07/08/22 13:05 Hct 28.0 % (40.1-51.0) L 07/08/22 13:05 MCV 97.3 fL (80.0-100.0) 07/06/22 07:27 MCH 31.5 pg (25.0-34.0) 07/06/22 07:27 MCHC 32.4 g/dL (32.0-36.0) 07/06/22 07:27 RDW Std Deviation 55.0 fL (36.4-46.3) H 07/06/22 07:27 RDW Coeff of Pam 15.5 % (11.5-14.5) H 07/06/22 07:27 Plt Count 173 K/uL (130-400) 07/06/22 07:27 MPV 10.9 fL (9.4-12.4) 07/06/22 07:27 Immature Gran % (Auto) 1.0 % 07/04/22 00:00 Neut % (Auto) 49.7 % 07/04/22 00:00 Lymph % (Auto) 30.6 % 07/04/22 00:00 [place] % (Auto) 13.9 % 07/04/22 00:00 Eos % (Auto) 4.0 % 07/04/22 00:00 Baso % (Auto) 0.8 % 07/04/22 00:00 Neut # (Auto) 5.71 K/uL (1.4-6.5) 07/04/22 00:00 Lymph # (Auto) 3.52 K/uL (1.2-3.4) H 07/04/22 00:00 [place] # (Auto) 1.60 K/uL (0.24-0.82) H 07/04/22 00:00 Eos # (Auto) 0.46 K/uL (0-0.50) 07/04/22 00:00 Baso # (Auto) 0.09 K/uL (0-0.2) 07/04/22 00:00 Immature Gran # (Auto) 0.12 K/uL (0.00-0.02) H 07/04/22 00:00 PT 11.2 Seconds (9.0-12.0) 07/04/22 00:00 INR 1.1 (0.9-1.1) 07/04/22 00:00 APTT 30.8 Seconds (21.0-31.0) 07/04/22 06:58 PTT Ratio 1.1 07/04/22 06:58 Sodium 138 mmol/L (136-145) 07/08/22 06:55 Potassium 3.9 mmol/L (3.5-5.1) 07/08/22 06:55 Chloride 107 mmol/L (98-107) 07/08/22 06:55 Carbon Dioxide 28 mmol/L (21-32) 07/08/22 06:55 Anion Gap 3 (3-11) 07/08/22 06:55 BUN 10 mg/dl (6-23) 07/08/22 06:55 Creatinine 0.67 mg/dl (0.6-1.4) 07/08/22 06:55 Est Cr Clr Drug Dosing 88.4 ml/min 07/08/22 06:55 Est GFR ( Amer) 114.4 ml/min 07/08/22 06:55 Est GFR (Non-Af Amer) 98.7 ml/min 07/08/22 06:55 BUN/Creatinine Ratio 14.9 (10-20) 07/08/22 06:55 Glucose 93 mg/dl (70-99(Fasting)) 07/08/22 06:55 Estimat Average Glucose 103 mg/dl 07/04/22 00:00 Hemoglobin A1c 5.2 % (4.5-5.6) 07/04/22 00:00 Calcium 8.7 mg/dl (8.5-10.1) 07/08/22 06:55 Magnesium 1.9 mg/dl (1.7-2.4) 07/04/22 00:00 Total Bilirubin 0.5 mg/dl (0.2-1.0) 07/04/22 00:00 AST 20 U/L (13-39) 07/04/22 00:00 ALT 13 U/L (7-52) 07/04/22 00:00 Alkaline Phosphatase 58 U/L (34-104) 07/04/22 00:00 Total Protein 7.8 gm/dl (6.0-8.3) 07/04/22 00:00 Albumin 4.0 gm/dl (3.4-5.0) 07/04/22 00:00 Globulin 3.8 gm/dl (2.5-4.0) 07/04/22 00:00 Albumin/Globulin Ratio 1.1 (0.9-2) 07/04/22 00:00 Procalcitonin < 0.05 ng/ml (0-0.5) 07/04/22 01:48 TSH 5.996 uIu/ml (0.300-4.500) H 07/04/22 01:48 Free T4 1.02 ng/dl (0.61-1.60) 07/04/22 01:48 Urine Color Dark Yellow 07/04/22 04:41 Urine Appearance Cloudy (Clear) A 07/04/22 04:41 Urine pH 7.0 (4.5-7.5) 07/04/22 04:41 Ur Specific [place] 1.028 (1.000-1.030) 07/04/22 04:41 Urine Protein 4+ (Negative) H 07/04/22 04:41 Urine Glucose (UA) Trace (Negative) H 07/04/22 04:41 Urine Ketones Trace (Negative) H 07/04/22 04:41 Urine Blood 3+ (Negative) H 07/04/22 04:41 Urine Nitrite Negative (Negative) 07/04/22 04:41 Urine Bilirubin Negative (Negative) 07/04/22 04:41 Urine Urobilinogen Negative (Negative) 07/04/22 04:41 Ur Leukocyte Esterase Trace (Negative) H 07/04/22 04:41 Urine WBC (Auto) 1-5 /hpf (0-5) 07/04/22 04:41 Urine RBC (Auto) >30 /hpf (0-4) H 07/04/22 04:41 U Hyaline Cast (Auto) 0 /lpf (0-5) 07/04/22 04:41 U Epithel Cells (Auto) 0-5 /lpf (0-5) 07/04/22 04:41 Urine Bacteria (Auto) Negative (Negative) 07/04/22 04:41 Digoxin 0.6 ng/ml (0.8-2.0) L 07/04/22 06:58 Digoxin Cancelled 07/04/22 06:58 Valproic Acid 92 mcg/ml (50-100) 07/04/22 06:58 Valproic Acid Cancelled 07/04/22 06:58 SARS-CoV-2, RNA, NAAT NEGATIVE (NEGATIVE) 07/04/22 02:00 Blood Type A Positive 07/04/22 06:58 Antibody Screen NEGATIVE 07/04/22 06:58 Impressions Chest X-Ray 07/04/22 02:29 XR chest 1V portable HISTORY: Sepsis. COMPARISON: Chest 11/02/2021. FINDINGS: No pneumothorax. No pleural effusions. The cardiac silhouette remains mildly enlarged. There are low lung volumes. There is a left-sided single lead p acemaker/defibrillator. No new focal lung consolidations to suggest a pneumonia. No evidence for pulmonary edema. Chronic deformity/degenerative changes within the left shoulder again noted. There are old, healed right-sided rib fractures. IMPRESSION: No significant change compared to the prior study. No acute process. ACT 112: Negative or not required by law. Electronically signed by: Deion Terry M.D. 07/04/2022 8:38 AM Abdomen/Pelvis CT 07/04/22 04:[address] WITH IV CONTRAST CT DOSE: 614.86 mGy.cm HISTORY: Acute hematuria hematuria TECHNIQUE: Multiaxial CT images of the abdomen and pelvis were performed following the IV administration of 87 cc of Optiray, A dose lowering technique was utilized adhering to the principles of ALARA. COMPARISON STUDY: CT abdomen and pelvis 07/05/2018, CT lumbar spine 01/23/2019. FINDINGS: Left pectoral pacer. Dilated pulmonary arteries suggestive of pulmonary arterial hypertension. Cardiomegaly with extensive coronary artery calcifications. Clear lung bases. The study is limited secondary to positioning and respiratory motion artifact. Diminutive spleen. Unremarkable pancreas and adrenal glands. Cholelithiasis without CT evidence of acute cholecystitis. Hepatic steatosis. Patent portal vein. 0.5 x 0.4 x 1.3 cm calculus within the right ureteropelvic junction. Mild uro thelial thickening of the right renal pelvis without hydronephrosis. Unremarkable appearance of the left kidney. Urinary bladder wall thickening with partial distention and perivesicular stranding. A Magaña catheter is in place. Air and complex debris within the urinary bladder lumen. There is a peripherally enhancing centrally hypodense prostatic lesion measuring 3.4 x 2.9 cm. Prostate is enlarged. Atherosclerosis of the aorta without aneurysm. No lymphadenopathy identified. Fluid noted within the distal esophagus. No bowel obstruction or bowel wall thickening. There is moderate rectal fecal retention. The appendix is not definitively seen. Unremarkable soft tissues. Degenerative changes of the spine, pelvis and hips. Avascular necrosis of the left greater the right femoral head with minimal associated bilateral reticular flattening. There are 2 cannulated screws in the left femoral neck. IMPRESSION: 1. 1.3 cm calculus within the right renal pelvis with mild urothelial thickening and no hydronephrosis. This finding was called/faxed to the floor at time of dictation. 2. Magaña catheter within a decompressed urinary bladder containing intraluminal debris suggestive of clot. 3. Prostamegaly with peripherally enhancing 3.4 cm central prostatic lesion suspicious for an abscess. 4. Moderate rectal fecal retention. No bowel obstruction or bowel wall thickening. 5. Cholelithiasis. 6. Avascular necrosis of the femoral heads. 7. Additional findings as above. ACT 112: Negative or not required by law. The above report was generated using voice recognition software. It may contain grammatical, syntax or spelling errors. Electronically signed by: Justin Conde M.D. 07/04/2022 7:54 AM Ordered Studies 07/04/22 04:39 CT Abd and Pelvis [CT abd pelvis IV con only] Urgent Hospital Course (1) Gross hematuria: Gross Hematuria Suspected prostatic abscess--less likely DD:Trauma due to Magaña DD: Secondary to Traumatic Catheter, Secondary to chronic anticoagulation H/O Indwelling Magaña catheter since October 2021 due to functional incontinence Magaña catheter placed as per family request to aid in decubitus wound healing as per family Acute blood loss anemia --CT ABD:1.3 cm calculus within the right renal pelvis with mild urothelial thickening and no hydronephrosis. This finding was called/faxed to the floor at time of dictation. Magaña catheter within a decompressed urinary bladder containing intraluminal debris suggestive of clot. Prostatomegaly with peripherally enhancing 3.4 cm central prostatic lesion suspicious for an abscess. Moderate rectal fecal retention. No bowel obstruction or bowel wall thickening. Cholelithiasis. 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 No signs of exacerbation DVT Px: SCDs Eliquis Code Status Full code Disposition Home with Home Health Total Time Total Time Spent Total Time Spent (In Minutes): 45 minutes Discharge Plan Discharge Items Patient Disposition: Home - Home Health Services Reason For Visit: HEMATURIA, TACHY Discharge Diagnosis: Gross Hematuria Activity: Per Instructions section Exercise/Sports: Wait until after follow-up appointment Non-emergency contact: Primary Care Provider and Urologist Call non-emergency contact if: you have any medication questions, your symptoms worsen, your pain is concerning for you and you have a fever Follow-up/Referrals: Richardson Sterling MD [Primary Care Provider] - (Date & Time 07/14/2022 3:00 PM Provider Richardson Sterling MD Department Family Medicine [facility] ) Diet: Heart Healthy Add Attending Provider Instructions: Follow-up with your primary care physician Dr. Sterling on 07/14/2022 3:00 PM as scheduled Follow-up with your urologist in 2-3 weeks Seek immediate medical attention if your symptoms reoccur or worsen Please take all medications as instructed on discharge list below. Please call if you have any questions or problems. You can reach a [facility] hospitalist on duty at [facility] 24 hours a day by calling [phone] Pending Studies at Discharge: No Stand-Alone Forms: My [facility], Smoking Cessation Medications and DC Order Prescriptions: New phenazopyridine [Pyridium] 100 mg Tablet 100 mg PO TID PRN (Reason: Dysuria) Qty: 30 0RF Continued Eliquis 5 mg tablet 5 mg PO BID multivitamin Tablet 1 tab PO DAILY fluoxetine 40 mg capsule 40 mg PO QAM atorvastatin 40 mg tablet 40 mg PO HS alendronate 70 mg tablet 70 mg PO WK Rx Instructions: MONDAYS divalproex 500 mg tablet extended release 24 hr 1,000 mg PO HS Rx Instructions: TAKE TWO 500 MG TABLETS ALONG WITH ONE 250 MG TALET TO EQUAL 1250 MG DOSE digoxin 125 mcg tablet 125 mcg PO QAM furosemide 20 mg tablet 20 mg PO QAM divalproex 250 mg tablet extended release 24 hr 250 mg PO HS Rx Instructions: TAKE ONE 250 MG TABLET ALONG WITH TWO 500 MG TABLETS TO EQUAL 1250 MG DOSE dexlansoprazole 60 mg capsule,biphase delayed releas 60 mg PO QAM coenzyme Q10 200 mg Capsule 200 mg PO DAILY aspirin 81 mg Tablet,Delayed Release (Dr/Ec) 81 mg PO QAM rosuvastatin 40 mg Tablet 40 mg PO QAM Discharge Orders: Discharge Order (Routine); Ordered 07/08/22 Ordered By: Arnulfo Johnson Admission Data Admit Date/Time: 07/05/22 08:40 Attending Provider: Arnulfo Johnson Admit Provider: Arnulfo Johnson Primary Care Provider: Richardson Sterling Other Providers: Lalit Ji ; Solitario Lazaro ; Darren Nelson ; Saw De Los Santos ; Ольга Hernández ; Tray Sarmiento ; Nicolasa Padilla ; Phyllis Galvez ; Mckinley Sullivan ; Danyelle Castanon ; Charline Perez ; Blayne Ervin ; Junior Smith ; [facility]
[2022-07-08] MEDS: DIGOXIN 0.125 MG TAB PO SCH (16:00)
== END 2022-07-08 17:59 | disposition home health service (06) | DRG 728 ==
LOC: 2N 00:02 → ED 00:02 → 2N 05:48

== ENCOUNTER 2022-11-25 13:53 | Inpatient (IN) ==
[2022-11-25] MEDS ORDERED: SODIUM CHLORIDE 0.9% 500 ML IV SCH (14:00)
--- NOTE | 2022-11-25 14:16 | Emergency Department Note ---
Impression & Plan Confusion, Sepsis, Elevated lactic acid level, Acute UTI ED Provider Note Provider: José Miguel Villalba MD DATE OF SERVICE: 11/25/2022 CHIEF COMPLAINT: Confusion HISTORY OF PRESENT ILLNESS: Patient is a 67-year-old gentleman history of heart failure, prior cardiac thrombus Eliquis, CVA, and seizure presenting from home today via ambulance. Patient unable to provide significant history. EMS report that the patient evidently was more confused today. They reported he had a fever of 101 Fahrenheit for them and he received a gram of Tylenol in route here. Patient has a condom cath in place there are some question if he may have UTI. No trauma is reported. Patient himself states not in pain but unable to tell me much more in terms of details and does not know the year or where he is at. PAST MEDICAL HISTORY: As noted above MEDICATIONS: Reviewed home medication list that here with the patient SOCIAL HISTORY: Resides at home PHYSICAL EXAM: GENERAL: alert in no acute distress to verbal stimuli on stretcher but not a good historian and only occasionally answers questions Head: normocephalic and atraumatic EYES: No injection, discharge or icterus. PERRL NECK: Trachea midline. Supple. ENT: Mucous membranes pink with what appeared to be either some candy or pills chewed up in the mouth. These were suctioned. LUNGS: Airway patent. No retractions. Breath sounds clear anteriorly with diminished in the bases HEART: Regular rate and rhythm. No chest wall tenderness ABDOMEN: Soft and non-tender, without guarding or rebound. SKIN: Acyanotic, warm, dry, without rashes EXTREMITIES: Patient with trace to 1+ edema of the lower extremities without significant swelling or weeping/erythema noted. NEUROLOGICAL: No focal deficit follows most simple commands in extremities. No aphasia. No facial droop or slurred speech. EK bpm with what appears to be atrial flutter although there is some baseline artifact. No acute ST segment elevation with some inferior lateral T wave inversions. QTc 450. CONTINUOUS CARDIAC MONITORING: was ordered and showed a heart rate of 80s-100s bpm in some artifact but believe more normal sinus and atrial flutter to sinus tachycardia. Patient's laboratory studies and imaging reviewed. Differential includes Infection, dehydration, metabolic abnormality, hypo/hyperglycemia, electrolyte disturbance, anemia, hypoxia, cardiac sources, i ntracerebral event, toxicologic, neurologic, as well as other pathologies. IMPRESSION/MEDICAL DECISION MAKIN-year-old history of CVA and urine condom catheter here febrile in route by report more confused. Febrile in route for EMS but received some Tylenol not febrile upon arrival. No trauma reported and do not see evidence of trauma on his person. Given his anticoagulation though with some confusion a CT of the head will be completed. Basic blood work sent and did add a VBG cultures and lactate given the possible infectious in his underlying COPD issues. Not significant hypoxic on room air here. EKG questions atrial flutter versus sinus rhythm but difficult with some baseline artifact. Rate controlled and anticoagulated in any event. Chest x-ray without clear evidence of pneumonia or significant fluid overload. CT of the head without evidence of new bleed or obvious new stroke with old chronic right MCA noted per radiology. VBG without significant acidosis or hypercarbia. Negative flu COVID RSV testing. Significant leukocytosis. Given fever and rales and elevated white blood cell count empirically given a dose of Zosyn. Reviewed prior microbiology without significant findings beyond alpha strep. Slight troponin elevation. No significant renal dysfunction or electrolyte abnormality noted beyond some mild hyponatremia. Lactate elevated at 4.1. Given his significant history of CHF with reduced ejection fracture gently given just 500 mL of IV fluid monitoring closely for any signs of fluid overload. Urine sample sent and condom catheter changed. We will give a second 500 cc IV fluid bolus and see if he tolerates this as well for total of 1 L of IV fluids. Broadened with vancomycin given the significant leukocytosis. Urinalysis does appear positive. Procalcitonin minimally elevated 0.3. Repeat lactate is improving. Requires admission for further care of sepsis of urinary origin. DIAGNOSIS: Confusion, sepsis, elevated lactic acid, elevated troponin, acute UTI DISPOSITION: Hospitalist will evaluate Patient was agreeable with this plan. Past Med/Surg History Medical History CAD (coronary artery disease) "Left and right heart catheterization report summary 09/21/2014: Proximal LAD has a 60% stenosis, a long 50% mid LAD disease Large branching OM2 has a 50% lesion The RCA has mild luminal irregularities The right sided pressures are mildly elevated without pulmonary hypertension (mean PA = 22 mm Hg), Mean wedge 13 mm Hg, LVEDP 14 mm hg, CO 4.1 (Thermodilution) " Carotid stenosis Convulsions "EEG abnormal in 2006- potential seizure focus in R temporal region 09/10/06" CVA (cerebral infarction) Depressive disorder (04/14/12) Dyslipidemia GERD (gastroesophageal reflux disease) HFrEF (heart failure with reduced ejection fraction) Ischemic cardiomyopathy April 24, 2018 TTE Interpretation Summary ([facility], Dr. Felix): There is a large sized apical, septal, anteroseptal, anterior, inferior, and lateral wall motion abnormality with hypokinesis to dyskinesis of the segments. The left ventricular myocardial thickness is normal in segments with normal wall motion. There is diffuse septal wall , anterior wall , apical wall thinning in a territory of LAD scar. Left ventricular systolic function is severely reduced. Ejection Fraction = 20-25%. No significant valvular pathology. Kidney stone Left spastic hemiplegia Osteoporosis PUD (peptic ulcer disease) S/P ORIF (open reduction internal fixation) fracture "01/07/07 ORIF left tibial plateau fracture " Thrombocytopenia Surgical History Cardiac defibrillator in situ Pacemaker S/P appendectomy Family History Mother , at 68 Myocardial infarction Father , at 68 Myocardial infarction Social History Smoking Status: Unknown if ever smoked Second Hand Exposure: No; Hx Alcohol Use: No Hx Substance Use: No Preferred Language: Amharic Communication Ability: Impaired Communication Ability Comment: hx stroke International Student Counselor Required: No Beliefs That Will Affect Care: None marital status: Current Living Situation: Family Current Living Situation Comment: per ER ex is primary career placement specialist other: Walks with a hemiwalker Feels Safe at Home: Yes Assistive Devices: Glasses, Walker and Wheelchair Allergies Allergies Allergy/AdvReac Type Severity Reaction Status Date / Time morphine Allergy Intermediate Itchiness Verified 07/04/22 00:47 naproxen Allergy Intermediate Hives Verified 07/04/22 00:47 Home Meds Home Medications Medication Instructions Recorded Confirmed alendronate 70 mg tablet 70 mg PO WK 07/05/18 11/25/22 dexlansoprazole 60 mg 60 mg PO QAM 07/05/18 11/25/22 capsule,biphase delayed release digoxin 125 mcg (0.125 mg) tablet 125 mcg PO QAM 07/05/18 11/25/22 divalproex 250 mg tablet,extended 250 mg PO HS 07/05/18 11/25/22 release 24 hr divalproex 500 mg tablet,extended 1,000 mg PO HS 07/05/18 11/25/22 release 24 hr fluoxetine 40 mg capsule 40 mg PO QAM 07/05/18 11/25/22 furosemide 20 mg tablet 20 mg PO Q OTHER DAY 07/05/18 11/25/22 multivitamin 1 tab PO DAILY 07/05/18 11/25/22 apixaban 5 mg tablet (Eliquis) 5 mg PO BID 03/11/22 11/25/22 rosuvastatin 40 mg tablet 40 mg PO QAM 07/04/22 11/25/22 aspirin 81 mg tablet,delayed 81 mg PO [id number] 11/25/22 11/25/22 release Results & Data (ED) Vital Signs Vital Signs - 24 hr 11/25/22 14:17 11/25/22 14:22 11/25/22 14:24 Temperature 37.5 C Temperature Source Axillary Pulse Rate 101 H Pulse Rate [Apical] 102 H Pulse Rate from SpO2 Sensor Respiratory Rate 14 15 Respiratory Effort / Characteristics Blood Pressure 97/63 L Blood Pressure [Right Arm] Blood Pressure Mean 74 Blood Pressure Mean [Right Arm] Pulse Oximetry 97 96 95 Oxygen Delivery Method Room Air Room Air Room Air Sepsis Recent Fever Within 48 Hours No Sepsis New/Unexplained Change in Mental Status No Sepsis Action Taken by Nursing Physician Notified 11/25/22 14:40 11/25/22 15:01 11/25/22 15:10 Temperature Temperature Source Pulse Rate 102 H 101 H 92 H Pulse Rate [Apical] Pulse Rate from SpO2 Sensor 102 H 92 H Respiratory Rate 21 19 Respiratory Effort / Characteristics Blood Pressure Blood Pressure [Right Arm] Blood Pressure Mean Blood Pressure Mean [Right Arm] Pulse Oximetry 96 97 Oxygen Delivery Method Sepsis Recent Fever Within 48 Hours Sepsis New/Unexplained Change in Mental Status Sepsis Action Taken by Nursing 11/25/22 15:20 11/25/22 16:07 11/25/22 16:22 Temperature Temperature Source Pulse Rate 93 H 89 Pulse Rate [Apical] 88 Pulse Rate from SpO2 Sensor 93 H Respiratory Rate 20 16 Respiratory Effort / Characteristics Blood Pressure Blood Pressure [Right Arm] 92/58 L Blood Pressure Mean Blood Pressure Mean [Right Arm] 69 Pulse Oximetry 96 97 Oxygen Delivery Method Room Air Sepsis Recent Fever Within 48 Hours Sepsis New/Unexplained Change in Mental Status Sepsis Action Taken by Nursing 11/25/22 18:00 11/25/22 15:30 11/25/22 15:36 Temperature Temperature Source Pulse Rate 91 H 93 H Pulse Rate [Apical] 81 Pulse Rate from SpO2 Sensor 92 H Respiratory Rate 18 19 20 Respiratory Effort / Characteristics Non-Labored Blood Pressure Blood Pressure [Right Arm] 94/59 L Blood Pressure Mean Blood Pressure Mean [Right Arm] 70 Pulse Oximetry 88 L 97 Oxygen Delivery Method Room Air Sepsis Recent Fever Within 48 Hours Sepsis New/Unexplained Change in Mental Status Sepsis Action Taken by Nursing 11/25/22 15:36 11/25/22 15:40 11/25/22 15:50 Temperature Temperature Source Pulse Rate 91 H 90 Pulse Rate [Apical] Pulse Rate from SpO2 Sensor 91 H 90 Respiratory Rate 20 22 Respiratory Effort / Characteristics Blood Pressure 90/60 L Blood Pressure [Right Arm] Blood Pressure Mean 70 Blood Pressure Mean [Right Arm] Pulse Oximetry 97 98 Oxygen Delivery Method Sepsis Recent Fever Within 48 Hours Sepsis New/Unexplained Change in Mental Status Sepsis Action Taken by Nursing 11/25/22 16:00 11/25/22 16:10 11/25/22 16:20 Temperature Temperature Source Pulse Rate 91 H 90 90 Pulse Rate [Apical] Pulse Rate from SpO2 Sensor 91 H 90 90 Respiratory Rate 23 19 19 Respiratory Effort / Characteristics Blood Pressure Blood Pressure [Right Arm] Blood Pressure Mean Blood Pressure Mean [Right Arm] Pulse Oximetry 97 97 96 Oxygen Delivery Method Sepsis Recent Fever Within 48 Hours Sepsis New/Unexplained Change in Mental Status Sepsis Action Taken by Nursing 11/25/22 16:24 11/25/22 16:24 11/25/22 16:30 Temperature Temperature Source Pulse Rate 89 88 Pulse Rate [Apical] Pulse Rate from SpO2 Sensor 89 88 Respiratory Rate 20 21 Respiratory Effort / Characteristics Blood Pressure 92/58 L Blood Pressure [Right Arm] Blood Pressure Mean 69 Blood Pressure Mean [Right Arm] Pulse Oximetry 97 98 Oxygen Delivery Method Sepsis Recent Fever Within 48 Hours Sepsis New/Unexplained Change in Mental Status Sepsis Action Taken by Nursing 11/25/22 16:40 11/25/22 16:50 11/25/22 17:00 Temperature Temperature Source Pulse Rate 90 89 Pulse Rate [Apical] Pulse Rate from SpO2 Sensor 90 89 Respiratory Rate 22 20 Respiratory Effort / Characteristics Blood Pressure 87/54 L Blood Pressure [Right Arm] Blood Pressure Mean 65 Blood Pressure Mean [Right Arm] Pulse Oximetry 97 97 Oxygen Delivery Method Sepsis Recent Fever Within 48 Hours Sepsis New/Unexplained Change in Mental Status Sepsis Action Taken by Nursing 11/25/22 17:00 11/25/22 17:10 11/25/22 17:20 Temperature Temperature Source Pulse Rate 88 88 90 Pulse Rate [Apical] Pulse Rate from SpO2 Sensor 89 90 Respiratory Rate 20 22 20 Respiratory Effort / Characteristics Blood Pressure Blood Pressure [Right Arm] Blood Pressure Mean Blood Pressure Mean [Right Arm] Pulse Oximetry 98 97 Oxygen Delivery Method Sepsis Recent Fever Within 48 Hours Sepsis New/Unexplained Change in Mental Status Sepsis Action Taken by Nursing 11/25/22 17:30 11/25/22 17:40 11/25/22 17:50 Temperature Temperature Source Pulse Rate 86 91 H 90 Pulse Rate [Apical] Pulse Rate from SpO2 Sensor 86 91 H 90 Respiratory Rate 21 21 20 Respiratory Effort / Characteristics Blood Pressure Blood Pressure [Right Arm] Blood Pressure Mean Blood Pressure Mean [Right Arm] Pulse Oximetry 97 97 97 Oxygen Delivery Method Sepsis Recent Fever Within 48 Hours Sepsis New/Unexplained Change in Mental Status Sepsis Action Taken by Nursing 11/25/22 18:00 11/25/22 18:00 Temperature Temperature Source Pulse Rate 86 Pulse Rate [Apical] Pulse Rate from SpO2 Sensor 82 Respiratory Rate 21 Respiratory Effort / Characteristics Blood Pressure 94/59 L Blood Pressure [Right Arm] Blood Pressure Mean 70 Blood Pressure Mean [Right Arm] Pulse Oximetry 97 Oxygen Delivery Method Sepsis Recent Fever Within 48 Hours Sepsis New/Unexplained Change in Mental Status Sepsis Action Taken by Nursing Laboratory Data 11/25/22 14:26 11/25/22 14:39 Lab Results 11/25/22 11/25/22 11/25/22 Range/Units 14:26 14:26 14:26 WBC Cancelled RBC Cancelled Hgb Cancelled Hct Cancelled MCV Cancelled MCH Cancelled MCHC Cancelled RDW Std Deviation Cancelled RDW Coeff of Pam Cancelled Plt Count Cancelled MPV Cancelled Immature Gran % (Auto) Cancelled Neut % (Auto) Cancelled Lymph % (Auto) Cancelled [place] % (Auto) Cancelled Eos % (Auto) Cancelled Baso % (Auto) Cancelled Neut # (Auto) Cancelled Lymph # (Auto) Cancelled [place] # (Auto) Cancelled Eos # (Auto) Cancelled Baso # (Auto) Cancelled Immature Gran # (Auto) Cancelled Absolute Nucleated RBC Cancelled Nucleated RBC % (auto) Cancelled Neutrophils % (Manual) Cancelled Band Neutrophils % Cancelled Lymphocytes % (Manual) Cancelled Prolymphocyte % Cancelled Reactive Lymphs % (Man) Cancelled Monocytes % (Manual) Cancelled Eosinophils % (Manual) Cancelled Basophils % (Manual) Cancelled Metamyelocytes % (Man) Cancelled Myelocytes % (Man) Cancelled Promyelocytes % (Man) Cancelled Blast Cells % (Manual) Cancelled Plasma Cell % (Manual) Cancelled Other Cells % Cancelled Nucleated RBC % Cancelled Neutrophils # (Manual) Cancelled Band Neutrophils # Cancelled Total Absolute Neuts Cancelled Lymphocytes # (Manual) Cancelled Prolymphocyte # Cancelled Reactive Lymphs # Cancelled Total Abs Lymphocytes Cancelled Monocytes # (Manual) Cancelled Eosinophils # (Manual) Cancelled Basophils # (Manual) Cancelled Metamyelocytes # (Man) Cancelled Myelocytes # (Manual) Cancelled Promyelocytes # (Man) Cancelled Blast Cells # (Man) Cancelled Plasma Cell # (Manual) Cancelled Other Cells # Cancelled Nucleated RBCs # (Man) Cancelled Hypersegmented Neuts Cancelled Hyposegmented Neuts Cancelled Hypogranular Neuts Cancelled Large Granular Lymphs Cancelled # Lrg Granular Lymphs Cancelled Hairy Cells Cancelled Smudge Cells Cancelled Toxic Granulation Cancelled Toxic Vacuolation Cancelled Dohle Bodies Cancelled Rosi Rods Cancelled Platelet Estimate Cancelled Hypogranular Platelets Cancelled Giant Platelets Cancelled Platelet Satelliting Cancelled RBC Morphology Cancelled Polychromasia Cancelled Hypochromasia Cancelled Poikilocytosis Cancelled Basophilic Stippling Cancelled Anisocytosis Cancelled Microcytosis Cancelled Macrocytosis Cancelled Spherocytes Cancelled Pappenheimer Bodies Cancelled Sickle Cells Cancelled Target Cells Cancelled Tear Drop Cells Cancelled Ovalocytes Cancelled Stomatocytes Cancelled [place] Bodies Cancelled Echinocytes Cancelled Acanthocytes (Spur) Cancelled Rouleaux Cancelled RBC Agglutinates Cancelled Schistocytes Cancelled Sezary Cell Cancelled PT Cancelled INR Cancelled VBG pH (7.36-7.41) VBG pCO2 (38-50) mmHg VBG pO2 mmHg VBG HCO3 mmol/L VBG O2 Saturation % VBG Base Excess mEq/L Sodium Potassium Chloride Carbon Dioxide Anion Gap BUN Creatinine Est Cr Clr Drug Dosing Est GFR ( Amer) Est GFR (Non-Af Amer) BUN/Creatinine Ratio Glucose Lactate (0.4-2.0) mmol/L Calcium Magnesium Total Bilirubin AST ALT Alkaline Phosphatase Troponin I High Sens Total Protein Albumin Globulin Albumin/Globulin Ratio Procalcitonin TSH Cancelled Urine Color Urine Appearance (Clear) Urine pH (4.5-7.5) Ur Specific [place] (1.000-1.030) Urine Protein (Negative) Urine Glucose (UA) (Negative) Urine Ketones (Negative) Urine Blood (Negative) Urine Nitrite (Negative) Urine Bilirubin (Negative) Urine Urobilinogen (Negative) Ur Leukocyte Esterase (Negative) Urine WBC (Auto) (0-5) /hpf Urine RBC (Auto) (0-4) /hpf U Hyaline Cast (Auto) (0-5) /lpf U Epithel Cells (Auto) (0-5) /lpf Urine Bacteria (Auto) (Negative) Urine Yeast Digoxin Blood Parasites ID Cancelled 11/25/22 11/25/22 11/25/22 Range/Units 14:26 14:26 14:26 WBC 31.26 H* RBC 3.63 L Hgb 11.6 L Hct 34.4 L MCV 94.8 MCH 32.0 MCHC 33.7 RDW Std Deviation 59.5 H RDW Coeff of Pam 17.4 H Plt Count 152 MPV 13.0 H Immature Gran % (Auto) 0.6 Neut % (Auto) 84.4 Lymph % (Auto) 2.6 [place] % (Auto) 12.2 Eos % (Auto) 0.0 Baso % (Auto) 0.2 Neut # (Auto) 26.40 H Lymph # (Auto) 0.80 L [place] # (Auto) 3.80 H Eos # (Auto) 0.00 Baso # (Auto) 0.06 Immature Gran # (Auto) 0.20 Absolute Nucleated RBC Nucleated RBC % (auto) Neutrophils % (Manual) Band Neutrophils % Lymphocytes % (Manual) Prolymphocyte % Reactive Lymphs % (Man) Monocytes % (Manual) Eosinophils % (Manual) Basophils % (Manual) Metamyelocytes % (Man) Myelocytes % (Man) Promyelocytes % (Man) Blast Cells % (Manual) Plasma Cell % (Manual) Other Cells % Nucleated RBC % Neutrophils # (Manual) Band Neutrophils # Total Absolute Neuts Lymphocytes # (Manual) Prolymphocyte # Reactive Lymphs # Total Abs Lymphocytes Monocytes # (Manual) Eosinophils # (Manual) Basophils # (Manual) Metamyelocytes # (Man) Myelocytes # (Manual) Promyelocytes # (Man) Blast Cells # (Man) Plasma Cell # (Manual) Other Cells # Nucleated RBCs # (Man) Hypersegmented Neuts Hyposegmented Neuts Hypogranular Neuts Large Granular Lymphs # Lrg Granular Lymphs Hairy Cells Smudge Cells Toxic Granulation Toxic Vacuolation 2+ Dohle Bodies Rosi Rods Platelet Estimate Hypogranular Platelets Giant Platelets Platelet Satelliting RBC Morphology Polychromasia 1+ Hypochromasia Poikilocytosis Basophilic Stippling Anisocytosis Microcytosis Macrocytosis Spherocytes Pappenheimer Bodies Sickle Cells Target Cells Tear Drop Cells Ovalocytes Stomatocytes [place] Bodies Echinocytes Acanthocytes (Spur) Rouleaux RBC Agglutinates Schistocytes Sezary Cell PT INR VBG pH (7.36-7.41) VBG pCO2 (38-50) mmHg VBG pO2 mmHg VBG HCO3 mmol/L VBG O2 Saturation % VBG Base Excess mEq/L Sodium Potassium Chloride Carbon Dioxide Anion Gap BUN Creatinine Est Cr Clr Drug Dosing Est GFR ( Amer) Est GFR (Non-Af Amer) BUN/Creatinine Ratio Glucose Lactate (0.4-2.0) mmol/L Calcium Magnesium Total Bilirubin AST ALT Alkaline Phosphatase Troponin I High Sens Total Protein Albumin Globulin Albumin/Globulin Ratio Procalcitonin Cancelled TSH Urine Color Urine Appearance (Clear) Urine pH (4.5-7.5) Ur Specific [place] (1.000-1.030) Urine Protein (Negative) Urine Glucose (UA) (Negative) Urine Ketones (Negative) Urine Blood (Negative) Urine Nitrite (Negative) Urine Bilirubin (Negative) Urine Urobilinogen (Negative) Ur Leukocyte Esterase (Negative) Urine WBC (Auto) (0-5) /hpf Urine RBC (Auto) (0-4) /hpf U Hyaline Cast (Auto) (0-5) /lpf U Epithel Cells (Auto) (0-5) /lpf Urine Bacteria (Auto) (Negative) Urine Yeast Digoxin Cancelled Blood Parasites ID 11/25/22 11/25/22 11/25/22 Range/Units 14:38 14:39 14:41 WBC RBC Hgb Hct MCV MCH MCHC RDW Std Deviation RDW Coeff of Pam Plt Count MPV Immature Gran % (Auto) Neut % (Auto) Lymph % (Auto) [place] % (Auto) Eos % (Auto) Baso % (Auto) Neut # (Auto) Lymph # (Auto) [place] # (Auto) Eos # (Auto) Baso # (Auto) Immature Gran # (Auto) Absolute Nucleated RBC Nucleated RBC % (auto) Neutrophils % (Manual) Band Neutrophils % Lymphocytes % (Manual) Prolymphocyte % Reactive Lymphs % (Man) Monocytes % (Manual) Eosinophils % (Manual) Basophils % (Manual) Metamyelocytes % (Man) Myelocytes % (Man) Promyelocytes % (Man) Blast Cells % (Manual) Plasma Cell % (Manual) Other Cells % Nucleated RBC % Neutrophils # (Manual) Band Neutrophils # Total Absolute Neuts Lymphocytes # (Manual) Prolymphocyte # Reactive Lymphs # Total Abs Lymphocytes Monocytes # (Manual) Eosinophils # (Manual) Basophils # (Manual) Metamyelocytes # (Man) Myelocytes # (Manual) Promyelocytes # (Man) Blast Cells # (Man) Plasma Cell # (Manual) Other Cells # Nucleated RBCs # (Man) Hypersegmented Neuts Hyposegmented Neuts Hypogranular Neuts Large Granular Lymphs # Lrg Granular Lymphs Hairy Cells Smudge Cells Toxic Granulation Toxic Vacuolation Dohle Bodies Rosi Rods Platelet Estimate Hypogranular Platelets Giant Platelets Platelet Satelliting RBC Morphology Polychromasia Hypochromasia Poikilocytosis Basophilic Stippling Anisocytosis Microcytosis Macrocytosis Spherocytes Pappenheimer Bodies Sickle Cells Target Cells Tear Drop Cells Ovalocytes Stomatocytes [place] Bodies Echinocytes Acanthocytes (Spur) Rouleaux RBC Agglutinates Schistocytes Sezary Cell PT INR VBG pH 7.42 H (7.36-7.41) VBG pCO2 35 L (38-50) mmHg VBG pO2 44 mmHg VBG HCO3 23 mmol/L VBG O2 Saturation 73.2 % VBG Base Excess -1.3 mEq/L Sodium Cancelled 134 L Potassium Cancelled 3.6 Chloride Cancelled 102 Carbon Dioxide Cancelled 21 Anion Gap Cancelled 11 BUN Cancelled 17 Creatinine Cancelled 1.17 Est Cr Clr Drug Dosing Cancelled Not Reportable Est GFR ( Amer) Cancelled 73.8 Est GFR (Non-Af Amer) Cancelled 63.7 BUN/Creatinine Ratio Cancelled 14.5 Glucose Cancelled 132 H Lactate (0.4-2.0) mmol/L Calcium Cancelled 8.8 Magnesium Cancelled 1.8 Total Bilirubin Cancelled 0.7 AST Cancelled 18 ALT Cancelled 6 L Alkaline Phosphatase Cancelled 59 Troponin I High Sens Cancelled 26.2 H Total Protein Cancelled 6.9 Albumin Cancelled 3.4 Globulin Cancelled 3.5 Albumin/Globulin Ratio Cancelled 1.0 Procalcitonin TSH Urine Color Urine Appearance (Clear) Urine pH (4.5-7.5) Ur Specific [place] (1.000-1.030) Urine Protein (Negative) Urine Glucose (UA) (Negative) Urine Ketones (Negative) Urine Blood (Negative) Urine Nitrite (Negative) Urine Bilirubin (Negative) Urine Urobilinogen (Negative) Ur Leukocyte Esterase (Negative) Urine WBC (Auto) (0-5) /hpf Urine RBC (Auto) (0-4) /hpf U Hyaline Cast (Auto) (0-5) /lpf U Epithel Cells (Auto) (0-5) /lpf Urine Bacteria (Auto) (Negative) Urine Yeast Digoxin Blood Parasites ID 11/25/22 11/25/22 11/25/22 Range/Units 15:22 16:06 16:06 WBC RBC Hgb Hct MCV MCH MCHC RDW Std Deviation RDW Coeff of Pam Plt Count MPV Immature Gran % (Auto) Neut % (Auto) Lymph % (Auto) [place] % (Auto) Eos % (Auto) Baso % (Auto) Neut # (Auto) Lymph # (Auto) [place] # (Auto) Eos # (Auto) Baso # (Auto) Immature Gran # (Auto) Absolute Nucleated RBC Nucleated RBC % (auto) Neutrophils % (Manual) Band Neutrophils % Lymphocytes % (Manual) Prolymphocyte % Reactive Lymphs % (Man) Monocytes % (Manual) Eosinophils % (Manual) Basophils % (Manual) Metamyelocytes % (Man) Myelocytes % (Man) Promyelocytes % (Man) Blast Cells % (Manual) Plasma Cell % (Manual) Other Cells % Nucleated RBC % Neutrophils # (Manual) Band Neutrophils # Total Absolute Neuts Lymphocytes # (Manual) Prolymphocyte # Reactive Lymphs # Total Abs Lymphocytes Monocytes # (Manual) Eosinophils # (Manual) Basophils # (Manual) Metamyelocytes # (Man) Myelocytes # (Manual) Promyelocytes # (Man) Blast Cells # (Man) Plasma Cell # (Manual) Other Cells # Nucleated RBCs # (Man) Hypersegmented Neuts Hyposegmented Neuts Hypogranular Neuts Large Granular Lymphs # Lrg Granular Lymphs Hairy Cells Smudge Cells Toxic Granulation Toxic Vacuolation Dohle Bodies Rosi Rods Platelet Estimate Hypogranular Platelets Giant Platelets Platelet Satelliting RBC Morphology Polychromasia Hypochromasia Poikilocytosis Basophilic Stippling Anisocytosis Microcytosis Macrocytosis Spherocytes Pappenheimer Bodies Sickle Cells Target Cells Tear Drop Cells Ovalocytes Stomatocytes [place] Bodies Echinocytes Acanthocytes (Spur) Rouleaux RBC Agglutinates Schistocytes Sezary Cell PT 13.3 H INR 1.3 H VBG pH (7.36-7.41) VBG pCO2 (38-50) mmHg VBG pO2 mmHg VBG HCO3 mmol/L VBG O2 Saturation % VBG Base Excess mEq/L Sodium Potassium Chloride Carbon Dioxide Anion Gap BUN Creatinine Est Cr Clr Drug Dosing Est GFR ( Amer) Est GFR (Non-Af Amer) BUN/Creatinine Ratio Glucose Lactate 4.1 H* (0.4-2.0) mmol/L Calcium Magnesium Total Bilirubin AST ALT Alkaline Phosphatase Troponin I High Sens Total Protein Albumin Globulin Albumin/Globulin Ratio Procalcitonin 0.34 TSH Urine Color Urine Appearance (Clear) Urine pH (4.5-7.5) Ur Specific [place] (1.000-1.030) Urine Protein (Negative) Urine Glucose (UA) (Negative) Urine Ketones (Negative) Urine Blood (Negative) Urine Nitrite (Negative) Urine Bilirubin (Negative) Urine Urobilinogen (Negative) Ur Leukocyte Esterase (Negative) Urine WBC (Auto) (0-5) /hpf Urine RBC (Auto) (0-4) /hpf U Hyaline Cast (Auto) (0-5) /lpf U Epithel Cells (Auto) (0-5) /lpf Urine Bacteria (Auto) (Negative) Urine Yeast Digoxin Blood Parasites ID 11/25/22 11/25/22 Range/Units 16:53 17:41 WBC RBC Hgb Hct MCV MCH MCHC RDW Std Deviation RDW Coeff of Pam Plt Count MPV Immature Gran % (Auto) Neut % (Auto) Lymph % (Auto) [place] % (Auto) Eos % (Auto) Baso % (Auto) Neut # (Auto) Lymph # (Auto) [place] # (Auto) Eos # (Auto) Baso # (Auto) Immature Gran # (Auto) Absolute Nucleated RBC Nucleated RBC % (auto) Neutrophils % (Manual) Band Neutrophils % Lymphocytes % (Manual) Prolymphocyte % Reactive Lymphs % (Man) Monocytes % (Manual) Eosinophils % (Manual) Basophils % (Manual) Metamyelocytes % (Man) Myelocytes % (Man) Promyelocytes % (Man) Blast Cells % (Manual) Plasma Cell % (Manual) Other Cells % Nucleated RBC % Neutrophils # (Manual) Band Neutrophils # Total Absolute Neuts Lymphocytes # (Manual) Prolymphocyte # Reactive Lymphs # Total Abs Lymphocytes Monocytes # (Manual) Eosinophils # (Manual) Basophils # (Manual) Metamyelocytes # (Man) Myelocytes # (Manual) Promyelocytes # (Man) Blast Cells # (Man) Plasma Cell # (Manual) Other Cells # Nucleated RBCs # (Man) Hypersegmented Neuts Hyposegmented Neuts Hypogranular Neuts Large Granular Lymphs # Lrg Granular Lymphs Hairy Cells Smudge Cells Toxic Granulation Toxic Vacuolation Dohle Bodies Rosi Rods Platelet Estimate Hypogranular Platelets Giant Platelets Platelet Satelliting RBC Morphology Polychromasia Hypochromasia Poikilocytosis Basophilic Stippling Anisocytosis Microcytosis Macrocytosis Spherocytes Pappenheimer Bodies Sickle Cells Target Cells Tear Drop Cells Ovalocytes Stomatocytes [place] Bodies Echinocytes Acanthocytes (Spur) Rouleaux RBC Agglutinates Schistocytes Sezary Cell PT INR VBG pH (7.36-7.41) VBG pCO2 (38-50) mmHg VBG pO2 mmHg VBG HCO3 mmol/L VBG O2 Saturation % VBG Base Excess mEq/L Sodium Potassium Chloride Carbon Dioxide Anion Gap BUN Creatinine Est Cr Clr Drug Dosing Est GFR ( Amer) Est GFR (Non-Af Amer) BUN/Creatinine Ratio Glucose Lactate 2.4 H* (0.4-2.0) mmol/L Calcium Magnesium Total Bilirubin AST ALT Alkaline Phosphatase Troponin I High Sens Total Protein Albumin Globulin Albumin/Globulin Ratio Procalcitonin TSH Urine Color Dark Yellow Urine Appearance Turbid A (Clear) Urine pH 5.5 (4.5-7.5) Ur Specific [place] 1.031 H (1.000-1.030) Urine Protein 1+ H (Negative) Urine Glucose (UA) Negative (Negative) Urine Ketones Trace H (Negative) Urine Blood 3+ H (Negative) Urine Nitrite Negative (Negative) Urine Bilirubin Negative (Negative) Urine Urobilinogen Negative (Negative) Ur Leukocyte Esterase 2+ H (Negative) Urine WBC (Auto) >30 H (0-5) /hpf Urine RBC (Auto) 0-4 (0-4) /hpf U Hyaline Cast (Auto) 1-5 (0-5) /lpf U Epithel Cells (Auto) 10-20 H (0-5) /lpf Urine Bacteria (Auto) 3+ H (Negative) Urine Yeast Not Reportable Digoxin Blood Parasites ID Administered Medications Apixaban (Apixaban 5 Mg Tablet) 5 mg PO BID [facility] Stop: 12/25/22 20:59 Last Admin: 11/25/22 22:14 Dose: Not Given Documented By: AQUILINO Divalproex Sodium (Divalproex Extended Release 500 Mg Tab) 1,000 mg PO [facility] Stop: 12/25/22 20:59 Last Admin: 11/25/22 22:15 Dose: Not Given Documented By: AQUILINO Divalproex Sodium (Divalproex Extended Release 250 Mg Tabcr) 250 mg PO [facility] Stop: 12/25/22 20:59 Last Admin: 11/25/22 22:15 Dose: Not Given Documented By: AQUILINO Piperacillin Sod/Tazobactam (Sod 4.5 gm/ Dextrose) 120 mls @ 30 mls/hr IV Q8H [facility]; Protocol Stop: 12/05/22 21:59 Last Admin: 11/25/22 21:39 Dose: 30 mls/hr Documented By: AQUILINO Potassium Chloride/Sodium Chloride (Normal Saline W/20 Meq Kcl) 20 meq in 1,000 mls @ 75 mls/hr IV .[id number] [facility]; Protocol Stop: 11/26/22 21:09 Last Admin: 11/25/22 20:51 Dose: 75 mls/hr Documented By: AQUILINO Sodium Chloride (Nss 1000ml) 500 mls @ 999 mls/hr IV .Q31M ONE Stop: 11/25/22 22:45 Last Admin: 11/25/22 22:17 Dose: 999 mls/hr Documented By: AQUILINO Discontinued Medications Sodium Chloride (Nss) 500 mls @ 999 mls/hr IV .Q31M [facility] Stop: 11/25/22 14:30 Last Infusion: 11/25/22 15:30 Dose: 0 mls/hr Documented By: Admin: 11/25/22 14:37 Dose: 999 mls/hr Documented By: GEREMIAS Piperacillin Sod/Tazobactam Sod (Zosyn) 4.5 gm in 120 mls @ 240 mls/hr IV NOW ONE Stop: 11/25/22 16:11 Last Infusion: 11/25/22 17:16 Dose: 0 mls/hr Documented By: Admin: 11/25/22 16:21 Dose: 240 mls/hr Documented By: KT Vancomycin HCl 1,500 mg/ (Sodium Chloride) 530 mls @ 200 mls/hr IV NOW ONE Stop: 11/25/22 19:39 Last Admin: 11/25/22 18:00 Dose: 200 mls/hr Documented By: NA Sodium Chloride (Nss 1000ml) 500 mls @ 999 mls/hr IV .Q31M ONE Stop: 11/25/22 17:32 Last Infusion: 11/25/22 18:39 Dose: 0 mls/hr Documented By: Admin: 11/25/22 18:01 Dose: 999 mls/hr Documented By: SHARA Imaging Data Radiologist's Impression: Chest X-Ray 11/25/22 14:00 SINGLE VIEW CHEST CLINICAL HISTORY: Change in mental status. Fever. FINDINGS: An AP, supine, upright chest radiograph is compared to study dated 07/04/2022 and correlated with chest CT dated 11/02/2021. A single-lead cardiac AICD is unchanged in position and partially obscures the left chest. The heart is enlarged noting atherosclerotic calcification of the thoracic aorta. The pulmonary vasculature is noncongested. Chronic interstitial thickening similar to previous. There are low lung volumes with bibasilar atelectasis. No airspace consolidation or large pleural effusion is identified. No pneumothorax is seen. The skeletal structures are osteopenic. There are healed right-sided rib fractures. Advanced arthritic change is noted in the left shoulder. IMPRESSION: 1. Cardiomegaly and AICD without radiographic evidence of congestive failure. 2. Low lung volumes with no airspace consolidation or large pleural effusion. ACT 112: Negative or not required by law. Electronically signed by: Thang Thomas M.D. 11/25/2022 2:[address] 11/25/22 14:00 CT head/brain wo con CLINICAL HISTORY: 67 years-old Male with confusion. Acutely altered mental status TECHNIQUE: Multiple axial CT images of the head were obtained without contrast. A dose lowering technique was utilized adhering to the principles of ALARA. CT DOSE: 614.27 mGy.cm COMPARISON: 01/23/2019 FINDINGS: No acute intracranial hemorrhage, midline shift, intracranial mass, hydrocephalus, territorial ischemia or abnormal extra-axial collection. Chronic large right MCA infarct with encephalomalacia and ex vacuo ventriculomegaly of the right lateral ventricle. Involutional changes with chronic microvascular ischemic disease. Cerebral vascular calcifications. The calvarium is intact. The paranasal sinuses, mastoid air cells, and middle ear cavities are clear. IMPRESSION: 1. No acute intracranial abnormality. 2. Chronic right MCA infarct. ACT 112: Negative or not required by law. The above report was generated using voice recognition software. It may contain grammatical, syntax or spelling errors. Electronically signed by: Justin Conde M.D. 11/25/2022 3:04 PM Discharge Plan Visit Data Chief Complaint: Lethargic Stated Complaint: LETHARGIC ED Provider: José Miguel Villalba Discharge Problem: Confusion, Sepsis, Elevated lactic acid level, Acute UTI Patient Disposition: Admitted As Inpatient Discharge Instructions Interventions: ED Discharge Assessment Last Done: 11/25/22 22:32
--- NOTE | 2022-11-25 14:27 | XRay Report ---
SINGLE VIEW CHEST CLINICAL HISTORY: Change in mental status. Fever. FINDINGS: An AP, supine, upright chest radiograph is compared to study dated 07/04/2022 and correlated with chest CT dated 11/02/2021. A single-lead cardiac AICD is unchanged in position and partially obsc ures the left chest. The heart is enlarged noting atherosclerotic calcification of the thoracic aorta . The pulmonary vasculature is noncongested. Chronic interstitial thickening similar to previous. The re are low lung volumes with bibasilar atelectasis. No airspace consolidation or large pleural effusi on is identified. No pneumothorax is seen. The skeletal structures are osteopenic. There are healed r ight-sided rib fractures. Advanced arthritic change is noted in the left shoulder. IMPRESSION: 1. Cardiomegaly and AICD without radiographic evidence of congestive failure. 2. Low lung volumes with no airspace consolidation or large pleural effusion. ACT 112: Negative or not required by law. Electronically signed by: Thang Thomas M.D. 11/25/2022 2:26 PM
[2022-11-25 14:58] LABS: Base Excess VBG -1.3 mEq/L; HCO3 VBG 23 mmol/L; Oxygen Saturation VBG 73.2 %; PCO2 VBG 35 mmHg (38-50); PO2 VBG 44 mmHg; pH VBG 7.42 (7.36-7.41)
--- NOTE | 2022-11-25 15:07 | CT Scan Report ---
CT head/brain wo con CLINICAL HISTORY: 67 years-old Male with confusion. Acutely altered mental status TECHNIQUE: Multiple axial CT images of the head were obtained without contrast. A dose lowering tech nique was utilized adhering to the principles of ALARA. CT DOSE: 614.27 mGy.cm COMPARISON: 01/23/2019 FINDINGS: No acute intracranial hemorrhage, midline shift, intracranial mass, hydrocephalus, territorial ischem ia or abnormal extra-axial collection. Chronic large right MCA infarct with encephalomalacia and ex v acuo ventriculomegaly of the right lateral ventricle. Involutional changes with chronic microvascular ischemic disease. Cerebral vascular calcifications. The calvarium is intact. The paranasal sinuses, mastoid air cells, and middle ear cavities are clear . IMPRESSION: 1. No acute intracranial abnormality. 2. Chronic right MCA infarct. ACT 112: Negative or not required by law. The above report was generated using voice recognition software. It may contain grammatical, syntax o r spelling errors. Electronically signed by: Justin Conde M.D. 11/25/2022 3:04 PM
[2022-11-25 15:36] LABS: Influenza A virus by PCR Negative (Neg); Influenza B virus by PCR Negative (Neg); RSV by PCR Negative (Neg); SARS CoV2 RNA(COVID-19) Ceph NEGATIVE (Negative)
[2022-11-25] MEDS ORDERED: PIPERACILLIN/TAZOBACTAM 4.5 GM/120 ML BAG IV ONE (15:42)
[2022-11-25 16:19] LABS: Alanine Aminotransferase 6 U/L (7-52); Albumin Level 3.4 gm/dl (3.4-5.0); Alkaline Phosphatase 59 U/L (34-104); Anion Gap 11 (3-11); Aspartate Aminotransferase 18 U/L (13-39); BUN Creatinine Ratio 14.5 (10-20); Bilirubin,Total 0.7 mg/dl (0.2-1.0); Blood Urea Nitrogen 17 mg/dl (6-23); Calcium 8.8 mg/dl (8.6-10.3); Carbon Dioxide 21 mmol/L (21-32); Chloride 102 mmol/L (98-107); Est GFR (African American) 73.8 ml/min; Est GFR (Non-African American) 63.7 ml/min; Globulin 3.5 gm/dl (2.5-4.0); Glucose 132 mg/dl (70-99(Fasting)); Magnesium 1.8 mg/dl (1.7-2.4); Potassium 3.6 mmol/L (3.5-5.1); Sodium 134 mmol/L (136-145); Total Protein 6.9 gm/dl (6.0-8.3)
[2022-11-25 16:26] LABS: Troponin I High Sensitivity 26.2 pg/ml (0-20)
[2022-11-25 16:36] LABS: INR 1.3 (0.9-1.1); Prothrombin Time 13.3 Seconds (9.0-12.0)
--- NOTE | 2022-11-25 16:40 | Electrocardiogram Report ---
Test Reason : Blood Pressure : / mmHG Vent. Rate : 102 BPM Atrial Rate : 326 BPM P-R Int : 000 ms QRS Dur : 086 ms QT Int : 346 ms P-R-T Axes : 036 -12 -30 degrees QTc Int : 450 ms Poor data quality, interpretation may be adversely affected Undetermined rhythm Anteroseptal infarct (cited on or before 31-JAN-2014) Abnormal ECG When compared with ECG of 04-JUL-2022 02:06, No significant change Confirmed by Leo Wright ([id number]) on 11/25/2022 4:39:49 PM Referred By: REFERRED SELF Confirmed By:Leo Wright
[2022-11-25 16:58] LABS: Hematocrit (blood only) 34.4 % (42.0-52.0); Hemoglobin 11.6 g/dl (14.0-18.0); Mean Corpuscular Hgb Conc 33.7 g/dL (32.0-36.0); Mean Corpuscular Volume 94.8 fL (80.0-100.0); Platelet Count 152 K/uL (130-400); RDW Coefficient of Variation 17.4 % (11.5-14.5); RDW Standard Deviation 59.5 fL (36.4-46.3); Red Blood Count 3.63 M/uL (4.70-6.10); White Blood Count 31.26 K/ul (4.8-10.8)
[2022-11-25] MEDS ORDERED: VANCOMYCIN CONSULT ACTIVE PRN (17:01)
[2022-11-25] MEDS ORDERED: VANCOMYCIN HCL 1,500 MG in SODIUM CHLORIDE 0.9% 500 ML IV ONE (17:01)
[2022-11-25] MEDS ORDERED: SODIUM CHLORIDE 0.9% 1000ML 500 ML IV ONE ×2 (17:02→22:15)
[2022-11-25 17:08] LABS: Appearance Urine Turbid (Clear); Bacteria Urine Automated 3+ (Negative); Bilirubin Urine Negative (Negative); Blood Urine 3+ (Negative); Color Urine Dark Yellow; Glucose Urine UA Negative (Negative); Ketones Urine Trace (Negative); Leukocyte Esterase Urine 2+ (Negative); Nitrite Urine Negative (Negative); Protein Urine 1+ (Negative); Specific Gravity Urine 1.031 (1.000-1.030); Urobilinogen Urine Negative (Negative); WBC Urine Automated >30 /hpf (0-5); pH Urine 5.5 (4.5-7.5)
[2022-11-25 17:16] LABS: Basophils # (auto) 0.06 K/uL (0-0.2); Basophils % (auto) 0.2 %; Immature Granulocytes % (auto) 0.6 %; Lymphocytes % (auto) 2.6 %; Monocytes % (auto) 12.2 %; Neutrophils % (auto) 84.4 %; Polychromasia 1+; Toxic Vacuolation 2+
[2022-11-25 17:28] LABS: RBC Urine Automated 0-4 /hpf (0-4)
--- NOTE | 2022-11-25 18:23 | History & Physical Report ---
Date of Service November 25, 2022 Assessment & Plan (1) Sepsis: Plan: Presented with sepsis with fever tachycardia and increased white cell count Secondary to complicated UTI-uses a condom catheter for convenience and the patient is bedbound Blood and urine culture have been sent Started with intravenous Zosyn and vancomycin Intravenous fluid administration Lactate will be checked again Chronic bedbound status Cannot come out of bed by himself Can feed himself Communicative (2) Confusion: Plan: Acute confusion likely secondary to sepsis As per the significant other he usually communicates well (3) Acute UTI: Plan: Urine examination shows possible UTI Uses a condom catheter at home Urine has been sent for culture (4) HFrEF (heart failure with reduced ejection fraction): Plan: History of NH in the past with reduced EF of 34% as of echo in 2021 Uses Lasix as an outpatient which is on hold now No acute cardiac symptoms and no fluid overload (5) History of CVA with residual deficit: Plan: Has had a stroke in the past in 2004 with left-sided weakness (6) Seizure disorder: Plan: Seizure disorder on medication We will continue current medicine (7) GERD (gastroesophageal reflux disease): Plan: Continue PPI (8) Ischemic cardiomyopathy: Plan: CAD with ischemic cardiomyopathy EF of 34% Has cardiac defibrillator in situ 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 (9) Cardiac defibrillator in situ: Plan: As above Plan DVT prophylaxis Continue Eliquis CODE STATUS Full History of Present Illness Chief Complaint: Change in mental status since this morning Primary Care Provider: Richardson Sterling MD He is a 67-year-old male with significant past medical history of chronic systolic heart failure secondary to ischemic cardiomyopathy EF of 34% as of 2021 status post ICD, history of CAD/CVA/PVD, history of cardiac thrombus on Eliquis, hyperlipidemia seizure disorder, COPD, hypertension and past tobacco abuse apparently was noted to have fever of 103 F last evening at around 7:30 PM. History was taken from his ex-. he has had supper and he vomited after having supper and at that time he was noted to have a temperature of 103.4 F. He was not having any other symptoms at the time and the fever was reasonably controlled throughout the night by giving Tylenol on multiple times. He was noted to be less responsive at around 10 AM and at that time his fever was 101 F and made an appointment with the primary care physician at around 3 PM. She called the nurse and after discussing his current condition the nurse advised him to bring him to the emergency room for further evaluation. He has been less responsive since this morning and also has had some sweating and his urine has been smelling bad for the last few days and he uses a condom catheter for his urine outflow. He does not have any problem with his bowel habit and denies any cough, chest pain or palpitation, shortness of breath. He did not have any more vomiting since last night. He remained less responsive since this morning. In ER his UA was suggestive of infection and white count was elevated he was tachycardic but not febrile and he was admitted to medical telemetry unit for continuation of care. Allergies Allergy/AdvReac Type Severity Reaction Status Date / Time morphine Allergy Intermediate Itchiness Verified 07/04/22 00:47 naproxen Allergy Intermediate Hives Verified 07/04/22 00:47 Home Medications Medication Instructions Recorded Confirmed Type alendronate 70 mg tablet 70 mg PO WK 07/05/18 11/25/22 History dexlansoprazole 60 mg 60 mg PO QAM 07/05/18 11/25/22 History capsule,biphase delayed release digoxin 125 mcg (0.125 mg) tablet 125 mcg PO QAM 07/05/18 11/25/22 History divalproex 250 mg tablet,extended 250 mg PO HS 07/05/18 11/25/22 History release 24 hr divalproex 500 mg tablet,extended 1,000 mg PO HS 07/05/18 11/25/22 History release 24 hr fluoxetine 40 mg capsule 40 mg PO QAM 07/05/18 11/25/22 History furosemide 20 mg tablet 20 mg PO Q OTHER DAY 07/05/18 11/25/22 History multivitamin 1 tab PO DAILY 07/05/18 11/25/22 History apixaban 5 mg tablet (Eliquis) 5 mg PO BID 03/11/22 11/25/22 History rosuvastatin 40 mg tablet 40 mg PO QAM 07/04/22 11/25/22 History aspirin 81 mg tablet,delayed 81 mg PO 3XWK 11/25/22 11/25/22 History release Past Med/Surg History Medical History CAD (coronary artery disease) "Left and right heart catheterization report summary 09/21/2014: Proximal LAD has a 60% stenosis, a long 50% mid LAD disease Large branching OM2 has a 50% lesion The RCA has mild luminal irregularities The right sided pressures are mildly elevated without pulmonary hypertension (mean PA = 22 mm Hg), Mean wedge 13 mm Hg, LVEDP 14 mm hg, CO 4.1 (Thermodilution) " Carotid stenosis Convulsions "EEG abnormal in 2006- potential seizure focus in R temporal region 09/10/06" CVA (cerebral infarction) Depressive disorder (04/14/12) Dyslipidemia GERD (gastroesophageal reflux disease) HFrEF (heart failure with reduced ejection fraction) Ischemic cardiomyopathy April 24, 2018 TTE Interpretation Summary ([facility], Dr. Felix): There is a large sized apical, septal, anteroseptal, anterior, inferior, and lateral wall motion abnormality with hypokinesis to dyskinesis of the segments. The left ventricular myocardial thickness is normal in segments with normal wall motion. There is diffuse septal wall , anterior wall , apical wall thinning in a territory of LAD scar. Left ventricular systolic function is severely reduced. Ejection Fraction = 20-25%. No significant valvular pathology. Kidney stone Left spastic hemiplegia Osteoporosis PUD (peptic ulcer disease) S/P ORIF (open reduction internal fixation) fracture "01/07/07 ORIF left tibial plateau fracture " Thrombocytopenia Surgical History Cardiac defibrillator in situ Pacemaker S/P appendectomy Family History Mother , at 68 Myocardial infarction Father , at 68 Myocardial infarction Social History Smoking Status: Unknown if ever smoked Second Hand Exposure: No; Hx Alcohol Use: No Hx Substance Use: No Preferred Language: [place] Communication Ability: Impaired Communication Ability Comment: hx stroke [employer] Required: No Beliefs That Will Affect Care: None marital status: Current Living Situation: Family Current Living Situation Comment: per ER ex is 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 care 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 director other: Walks with a hemiwalker Feels Safe at Home: Yes Assistive Devices: Glasses, Walker and Wheelchair Review of Systems Review of Systems: All systems reviewed and are unremarkable as in H&P Physical Exam Physical Exam: Lying in bed without any acute distress Constitutional: well developed, well nourished, + ill appearing and average body habitus Eyes: PERRL, conjunctivae normal, anicteric sclerae ENMT: external ear and nose normal, oropharynx normal Neck: trachea midline, no thyromegaly Respiratory: no respiratory distress Auscultation: + diminished lung sounds (Bilaterally due to less effort); no crackles Cardiovascular: Rate/Rhythm: + tachycardic and + irregularly irregular Heart Sounds: normal S1, normal S2 and + murmur Extremities: no edema Gastrointestinal (Abdomen): Inspection/Auscultation: normal bowel sounds; abdomen not distended Percussion/Palpation: abdomen soft; abdomen nontender Musculoskeletal: No acute arthritis involving any joint Neurologic: Alert and awake. Minimally communicative. Answers with only yes or no. Does not move any of the extremities on commands. Lymphatic: no cervical or axillary lymphadenopathy Results & Data Results & Data Vital Signs (Past 12 Hours) Vital Signs Temp Pulse Pulse Resp BP BP Pulse Ox 11/25/22 16:22 88 16 92/58 L 97 11/25/22 16:07 89 11/25/22 15:20 93 H 20 96 11/25/22 15:10 92 H 19 97 11/25/22 15:01 101 H 11/25/22 14:40 102 H 21 96 11/25/22 14:24 95 11/25/22 14:22 102 H 15 96 11/25/22 14:17 37.5 C 101 H 14 97/63 L 97 O2 Del Method 11/25/22 16:22 Room Air 11/25/22 16:07 11/25/22 15:20 11/25/22 15:10 11/25/22 15:01 11/25/22 14:40 11/25/22 14:24 Room Air 11/25/22 14:22 Room Air 11/25/22 14:17 Room Air Laboratory Results Short CBC 11/25/22 11/25/22 Range/Units 14:26 14:26 WBC Cancelled 31.26 H* Hgb Cancelled 11.6 L Hct Cancelled 34.4 L Plt Count Cancelled 152 BMP 11/25/22 11/25/22 14:39 14:41 Sodium Cancelled 134 L Potassium Cancelled 3.6 Chloride Cancelled 102 Carbon Dioxide Cancelled 21 BUN Cancelled 17 Creatinine Cancelled 1.17 Glucose Cancelled 132 H Calcium Cancelled 8.8 Liver Function 11/25/22 11/25/22 Range/Units 14:39 14:41 Total Bilirubin Cancelled 0.7 AST Cancelled 18 ALT Cancelled 6 L Alkaline Phosphatase Cancelled 59 Albumin Cancelled 3.4 Urine 11/25/22 Range/Units 16:53 Urine Color Dark Yellow Urine Appearance Turbid A (Clear) Urine pH 5.5 (4.5-7.5) Ur Specific [place] 1.031 H (1.000-1.030) Urine Protein 1+ H (Negative) Urine Glucose (UA) Negative (Negative) Diagnostic Findings Laboratory Results WBC 31.26 K/ul (4.8-10.8) H* 11/25/22 14:26 WBC Cancelled 11/25/22 14:26 RBC 3.63 M/uL (4.70-6.10) L 11/25/22 14:26 RBC Cancelled 11/25/22 14:26 Hgb 11.6 g/dl (14.0-18.0) L 11/25/22 14:26 Hgb Cancelled 11/25/22 14:26 Hct 34.4 % (42.0-52.0) L 11/25/22 14:26 Hct Cancelled 11/25/22 14:26 MCV 94.8 fL (80.0-100.0) 11/25/22 14:26 MCV Cancelled 11/25/22 14:26 MCH 32.0 pg (25.0-34.0) 11/25/22 14:26 MCH Cancelled 11/25/22 14:26 MCHC 33.7 g/dL (32.0-36.0) 11/25/22 14:26 MCHC Cancelled 11/25/22 14:26 RDW Std Deviation 59.5 fL (36.4-46.3) H 11/25/22 14:26 RDW Std Deviation Cancelled 11/25/22 14:26 RDW Coeff of Pam 17.4 % (11.5-14.5) H 11/25/22 14:26 RDW Coeff of Pam Cancelled 11/25/22 14:26 Plt Count 152 K/uL (130-400) 11/25/22 14:26 Plt Count Cancelled 11/25/22 14:26 MPV 13.0 fL (9.4-12.4) H 11/25/22 14:26 MPV Cancelled 11/25/22 14:26 Immature Gran % (Auto) 0.6 % 11/25/22 14:26 Immature Gran % (Auto) Cancelled 11/25/22 14:26 Neut % (Auto) 84.4 % 11/25/22 14:26 Neut % (Auto) Cancelled 11/25/22 14:26 Lymph % (Auto) 2.6 % 11/25/22 14:26 Lymph % (Auto) Cancelled 11/25/22 14:26 [place] % (Auto) 12.2 % 11/25/22 14:26 [place] % (Auto) Cancelled 11/25/22 14: Eos % (Auto) 0.0 % 11/25/22 14:26 Eos % (Auto) Cancelled 11/25/22 14:26 Baso % (Auto) 0.2 % 11/25/22 14:26 Baso % (Auto) Cancelled 11/25/22 14:26 Neut # (Auto) 26.40 K/uL (1.40-6.50) H 11/25/22 14:26 Neut # (Auto) Cancelled 11/25/22 14:26 Lymph # (Auto) 0.80 K/uL (1.2-3.4) L 11/25/22 14:26 Lymph # (Auto) Cancelled 11/25/22 14:26 [place] # (Auto) 3.80 K/uL (0.11-0.59) H 11/25/22 14:26 [place] # (Auto) Cancelled 11/25/22 14:26 Eos # (Auto) 0.00 K/uL (0-0.50) 11/25/22 14:26 Eos # (Auto) Cancelled 11/25/22 14:26 Baso # (Auto) 0.06 K/uL (0-0.2) 11/25/22 14:26 Baso # (Auto) Cancelled 11/25/22 14:26 Immature Gran # (Auto) 0.20 K/uL (0.01-0.20) 11/25/22 14:26 Immature Gran # (Auto) Cancelled 11/25/22 14:26 Absolute Nucleated RBC Cancelled 11/25/22 14:26 Nucleated RBC % (auto) Cancelled 11/25/22 14:26 Neutrophils % (Manual) Cancelled 11/25/22 14:26 Band Neutrophils % Cancelled 11/25/22 14:26 Lymphocytes % (Manual) Cancelled 11/25/22 14:26 Prolymphocyte % Cancelled 11/25/22 14:26 Reactive Lymphs % (Man) Cancelled 11/25/22 14:26 Monocytes % (Manual) Cancelled 11/25/22 14:26 Eosinophils % (Manual) Cancelled 11/25/22 14:26 Basophils % (Manual) Cancelled 11/25/22 14:26 Metamyelocytes % (Man) Cancelled 11/25/22 14:26 Myelocytes % (Man) Cancelled 11/25/22 14:26 Promyelocytes % (Man) Cancelled 11/25/22 14:26 Blast Cells % (Manual) Cancelled 11/25/22 14:26 Plasma Cell % (Manual) Cancelled 11/25/22 14:26 Other Cells % Cancelled 11/25/22 14:26 Nucleated RBC % Cancelled 11/25/22 14:26 Neutrophils # (Manual) Cancelled 11/25/22 14:26 Band Neutrophils # Cancelled 11/25/22 14:26 Total Absolute Neuts Cancelled 11/25/22 14:26 Lymphocytes # (Manual) Cancelled 11/25/22 14:26 Prolymphocyte # Cancelled 11/25/22 14:26 Reactive Lymphs # Cancelled 11/25/22 14:26 Total Abs Lymphocytes Cancelled 11/25/22 14:26 Monocytes # (Manual) Cancelled 11/25/22 14:26 Eosinophils # (Manual) Cancelled 11/25/22 14:26 Basophils # (Manual) Cancelled 11/25/22 14:26 Metamyelocytes # (Man) Cancelled 11/25/22 14:26 Myelocytes # (Manual) Cancelled 11/25/22 14:26 Promyelocytes # (Man) Cancelled 11/25/22 14:26 Blast Cells # (Man) Cancelled 11/25/22 14:26 Plasma Cell # (Manual) Cancelled 11/25/22 14:26 Other Cells # Cancelled 11/25/22 14:26 Nucleated RBCs # (Man) Cancelled 11/25/22 14:26 Hypersegmented Neuts Cancelled 11/25/22 14:26 Hyposegmented Neuts Cancelled 11/25/22 14:26 Hypogranular Neuts Cancelled 11/25/22 14:26 Large Granular Lymphs Cancelled 11/25/22 14:26 # Lrg Granular Lymphs Cancelled 11/25/22 14:26 Hairy Cells Cancelled 11/25/22 14:26 Smudge Cells Cancelled 11/25/22 14:26 Toxic Granulation Cancelled 11/25/22 14:26 Toxic Vacuolation 2+ 11/25/22 14:26 Toxic Vacuolation Cancelled 11/25/22 14:26 Dohle Bodies Cancelled 11/25/22 14:26 Rosi Rods Cancelled 11/25/22 14:26 Platelet Estimate Cancelled 11/25/22 14:26 Hypogranular Platelets Cancelled 11/25/22 14:26 Giant Platelets Cancelled 11/25/22 14:26 Platelet Satelliting Cancelled 11/25/22 14:26 RBC Morphology Cancelled 11/25/22 14:26 Polychromasia 1+ 11/25/22 14:26 Polychromasia Cancelled 11/25/22 14:26 Hypochromasia Cancelled 11/25/22 14:26 Poikilocytosis Cancelled 11/25/22 14:26 Basophilic Stippling Cancelled 11/25/22 14:26 Anisocytosis Cancelled 11/25/22 14:26 Microcytosis Cancelled 11/25/22 14:26 Macrocytosis Cancelled 11/25/22 14:26 Spherocytes Cancelled 11/25/22 14:26 Pappenheimer Bodies Cancelled 11/25/22 14:26 Sickle Cells Cancelled 11/25/22 14:26 Target Cells Cancelled 11/25/22 14:26 Tear Drop Cells Cancelled 11/25/22 14:26 Ovalocytes Cancelled 11/25/22 14:26 Stomatocytes Cancelled 11/25/22 14:26 Meyer-[place]oute Bodies Cancelled 11/25/22 14:26 Echinocytes Cancelled 11/25/22 14:26 Acanthocytes (Spur) Cancelled 11/25/22 14:26 Rouleaux Cancelled 11/25/22 14:26 RBC Agglutinates Cancelled 11/25/22 14:26 Schistocytes Cancelled 11/25/22 14:26 Sezary Cell Cancelled 11/25/22 14:26 PT 13.3 Seconds (9.0-12.0) H 11/25/22 16:06 INR 1.3 (0.9-1.1) H 11/25/22 16:06 VBG pH 7.42 (7.36-7.41) H 11/25/22 14:38 VBG pCO2 35 mmHg (38-50) L 11/25/22 14:38 VBG pO2 44 mmHg 11/25/22 14:38 VBG HCO3 23 mmol/L 11/25/22 14:38 VBG O2 Saturation 73.2 % 11/25/22 14:38 VBG Base Excess -1.3 mEq/L 11/25/22 14:38 Sodium 134 mmol/L (136-145) L 11/25/22 14:41 Potassium 3.6 mmol/L (3.5-5.1) 11/25/22 14:41 Chloride 102 mmol/L (98-107) 11/25/22 14:41 Carbon Dioxide 21 mmol/L (21-32) 11/25/22 14:41 Anion Gap 11 (3-11) 11/25/22 14:41 BUN 17 mg/dl (6-23) 11/25/22 14:41 Creatinine 1.17 mg/dl (0.6-1.4) 11/25/22 14:41 Est Cr Clr Drug Dosing Not Reportable 11/25/22 14:41 Est GFR ( Amer) 73.8 ml/min 11/25/22 14:41 Est GFR (Non-Af Amer) 63.7 ml/min 11/25/22 14:41 BUN/Creatinine Ratio 14.5 (10-20) 11/25/22 14:41 Glucose 132 mg/dl (70-99(Fasting)) H 11/25/22 14:41 Lactate 2.4 mmol/L (0.4-2.0) H* 11/25/22 17:41 Calcium 8.8 mg/dl (8.6-10.3) 11/25/22 14:41 Magnesium 1.8 mg/dl (1.7-2.4) 11/25/22 14:41 Total Bilirubin 0.7 mg/dl (0.2-1.0) 11/25/22 14:41 AST 18 U/L (13-39) 11/25/22 14:41 ALT 6 U/L (7-52) L 11/25/22 14:41 Alkaline Phosphatase 59 U/L (34-104) 11/25/22 14:41 Troponin I High Sens 26.2 pg/ml (0-20) H 11/25/22 14:41 Total Protein 6.9 gm/dl (6.0-8.3) 11/25/22 14:41 Albumin 3.4 gm/dl (3.4-5.0) 11/25/22 14:41 Globulin 3.5 gm/dl (2.5-4.0) 11/25/22 14:41 Albumin/Globulin Ratio 1.0 (0.9-2) 11/25/22 14:41 Procalcitonin 0.34 ng/ml (0-0.5) 11/25/22 16:06 TSH Cancelled 11/25/22 14:26 Urine Color Dark Yellow 11/25/22 16:53 Urine Appearance Turbid (Clear) A 11/25/22 16:53 Urine pH 5.5 (4.5-7.5) 11/25/22 16:53 Ur Specific [place] 1.031 (1.000-1.030) H 11/25/22 16:53 Urine Protein 1+ (Negative) H 11/25/22 16:53 Urine Glucose (UA) Negative (Negative) 11/25/22 16:53 Urine Ketones Trace (Negative) H 11/25/22 16:53 Urine Blood 3+ (Negative) H 11/25/22 16:53 Urine Nitrite Negative (Negative) 11/25/22 16:53 Urine Bilirubin Negative (Negative) 11/25/22 16:53 Urine Urobilinogen Negative (Negative) 11/25/22 16:53 Ur Leukocyte Esterase 2+ (Negative) H 11/25/22 16:53 Urine WBC (Auto) >30 /hpf (0-5) H 11/25/22 16:53 Urine RBC (Auto) 0-4 /hpf (0-4) 11/25/22 16:53 U Hyaline Cast (Auto) 1-5 /lpf (0-5) 11/25/22 16:53 U Epithel Cells (Auto) 10-20 /lpf (0-5) H 11/25/22 16:53 Urine Bacteria (Auto) 3+ (Negative) H 11/25/22 16:53 Urine Yeast Not Reportable 11/25/22 16:53 Digoxin Cancelled 11/25/22 14:26 SARS-CoV-2 (PCR) NEGATIVE (Negative) 11/25/22 Unknown Influenza Type A (PCR) Negative (Neg) 11/25/22 Unknown Influenza Type B (PCR) Negative (Neg) 11/25/22 Unknown RSV (RT-PCR) Negative (Neg) 11/25/22 Unknown Blood Parasites ID Cancelled 11/25/22 14:26 Impressions Chest X-Ray 11/25/22 14:00 SINGLE VIEW CHEST CLINICAL HISTORY: Change in mental status. Fever. FINDINGS: An AP, supine, upright chest radiograph is compared to study dated 07/04/2022 and correlated with chest CT dated 11/02/2021. A single-lead cardiac AICD is unchanged in position and partially obscures the left chest. The heart is enlarged noting atherosclerotic calcification of the thoracic aorta. The pulmonary vasculature is noncongested. Chronic interstitial thickening similar to previous. There are low lung volumes with bibasilar atelectasis. No airspace consolidation or large pleural effusion is identified. No pneumothorax is seen. The skeletal structures are osteopenic. There are healed right-sided rib fractures. Advanced arthritic change is noted in the left shoulder. IMPRESSION: 1. Cardiomegaly and AICD without radiographic evidence of congestive failure. 2. Low lung volumes with no airspace consolidation or large pleural effusion. ACT 112: Negative or not required by law. Electronically signed by: Thang Thomas M.D. 11/25/2022 2:[address] 11/25/22 14:00 CT head/brain wo con CLINICAL HISTORY: 67 years-old Male with confusion. Acutely altered mental status TECHNIQUE: Multiple axial CT images of the head were obtained without contrast. A dose lowering technique was utilized adhering to the principles of ALARA. CT DOSE: 614.27 mGy.cm COMPARISON: 01/23/2019 FINDINGS: No acute intracranial hemorrhage, midline shift, intracranial mass, hydrocephalus, territorial ischemia or abnormal extra-axial collection. Chronic large right MCA infarct with encephalomalacia and ex vacuo ventriculomegaly of the right lateral ventricle. Involutional changes with chronic microvascular ischemic disease. Cerebral vascular calcifications. The calvarium is intact. The paranasal sinuses, mastoid air cells, and middle ear cavities are clear. IMPRESSION: 1. No acute intracranial abnormality. 2. Chronic right MCA infarct. ACT 112: Negative or not required by law. The above report was generated using voice recognition software. It may contain grammatical, syntax or spelling errors. Electronically signed by: Justin Conde M.D. 11/25/2022 3:04 PM Medications Administered Current Inpatient Medications Vancomycin HCl 1,500 mg/ (Sodium Chloride) 530 mls @ 200 mls/hr IV NOW ONE Stop: 11/25/22 19:39 Last Admin: 11/25/22 18:00 Dose: 200 mls/hr Piperacillin Sod/Tazobactam (Sod 4.5 gm/ Dextrose) 120 mls @ 30 mls/hr IV Q8H [facility]; Protocol Stop: 12/05/22 18:14 Miscellaneous Information (Vancomycin Consult Active) 1 each N/A UD PRN PRN Reason: Consult Stop: 12/25/22 17:00 Code Status & VTE Plan VTE Prophylaxis Plan VTE Prophylaxis will be ordered: Yes (7) GERD (gastroesophageal reflux disease) Esophagitis presence: without esophagitis Qualified Code(s): K21.9 - Gastro- esophageal reflux disease without esophagitis
[2022-11-25] MEDS ORDERED: Patient's HEIGHT &/or WEIGHT Needed SCH (20:15)
[2022-11-25] MEDS: NSS + 20MEQ KCL 20 MEQ/1,000 ML BAG IV SCH (20:51)
[2022-11-25] MEDS: PIPERACILLIN/TAZOBACTAM 4.5 GM in DEXTROSE 5% 100 ML IV SCH (21:39)
[2022-11-25] MEDS: APIXABAN 5 MG TABLET PO SCH (22:14)
[2022-11-25] MEDS: DIVALPROEX EXTENDED RELEASE 500 MG TAB PO SCH (22:15)
[2022-11-25] MEDS: DIVALPROEX EXTENDED RELEASE 250 MG TABCR PO SCH (22:15)
--- NOTE | 2022-11-25 22:28 | Communication Note ---
Date of Service: November 25, 2022 Made aware by RN of aspiration risk. Patient unable to take Eliquis. 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
[2022-11-25] MEDS ORDERED: INFLUENZA VACCINE HIGH DOSE PF 65+ 0.7 ML SYR IM ONE (23:11)
[2022-11-25] MEDS: ENOXAPARIN 80 MG/0.8 ML SYR SQ SCH (23:49)
[2022-11-26 00:07] LABS: Partial Thromboplastin Ratio 1.5; Partial Thromboplastin Time 41.8 Seconds (21.0-31.0)
[2022-11-26 00:14] LABS: Digoxin 0.8 ng/ml (0.8-2.0)
[2022-11-26] MEDS: PROMETHAZINE HCL 12.5 MG in SODIUM CHLORIDE 0.9% 50 ML IV PRN (03:23)
[2022-11-26] MEDS ORDERED: VANCOMYCIN HCL 750 MG in SODIUM CHLORIDE 0.9% 250 ML IV SCH (04:00)
[2022-11-26] MEDS: PIPERACILLIN/TAZOBACTAM 4.5 GM in DEXTROSE 5% 100 ML IV SCH ×3 (06:01→21:24)
[2022-11-26 06:28] LABS: BUN Creatinine Ratio 18.7 (10-20); Calcium 7.6 mg/dl (8.6-10.3); Creatinine Clr Calc Pharmacy 65.1 ml/min; Est GFR (Non-African American) 86.3 ml/min; Potassium 3.6 mmol/L (3.5-5.1)
[2022-11-26 06:32] LABS: Basophils # (auto) 0.07 K/uL (0-0.2); Basophils % (auto) 0.3 %; Echinocytes 1+; Eosinophils # (auto) 0.04 K/uL (0-0.50); Eosinophils % (auto) 0.2 %; Hematocrit (blood only) 30.5 % (42.0-52.0); Hemoglobin 10.2 g/dl (14.0-18.0); Immature Granulocytes # (auto) 0.96 K/uL (0.01-0.20); Immature Granulocytes % (auto) 3.8 %; Lymphocytes # (auto) 0.74 K/uL (1.2-3.4); Lymphocytes % (auto) 2.9 %; Mean Corpuscular Hemoglobin 31.9 pg (25.0-34.0); Mean Corpuscular Hgb Conc 33.4 g/dL (32.0-36.0); Mean Corpuscular Volume 95.3 fL (80.0-100.0); Mean Platelet Volume 11.5 fL (9.4-12.4); Monocytes # (auto) 1.97 K/uL (0.11-0.59); Monocytes % (auto) 7.8 %; Neutrophils # (auto) 21.33 K/uL (1.40-6.50); Platelet Count 97 K/uL (130-400); Platelet Estimate Decreased (Normal); RDW Coefficient of Variation 17.1 % (11.5-14.5); RDW Standard Deviation 59.8 fL (36.4-46.3); Toxic Vacuolation 1+; White Blood Count 25.11 K/ul (4.8-10.8)
[2022-11-26] MEDS: ASPIRIN 81 MG ECTAB PO SCH (08:41)
[2022-11-26] MEDS: ROSUVASTATIN CALCIUM 20 MG TAB PO SCH (08:41)
[2022-11-26] MEDS: PANTOprazole 40 MG TAB PO SCH (08:41)
[2022-11-26] MEDS: FLUoxetine HCL 20 MG CAP PO SCH (08:41)
[2022-11-26] MEDS: MULTIVITAMIN TAB PO SCH (08:41)
[2022-11-26] MEDS: DIGOXIN 0.125 MG TAB PO SCH (08:42)
[2022-11-26] MEDS: NSS + 20MEQ KCL 20 MEQ/1,000 ML BAG IV SCH ×2 (10:23→11:29)
[2022-11-26] MEDS: ENOXAPARIN 80 MG/0.8 ML SYR SQ SCH ×3 (11:12→21:26)
--- NOTE | 2022-11-26 15:53 | Hospitalist Progress Note ---
Date of Service November 26, 2022 Assessment & Plan (1) Sepsis: Plan: Presented with sepsis with fever tachycardia and increased white cell count Secondary to complicated UTI-uses a condom catheter for convenience and the patient is bedbound UTI could be secondary to use of condom catheter Started with intravenous Zosyn and vancomycin Intravenous fluid administration Lactate will be checked again-lactate has been improving 1 out of 2 blood cultures is growing gram-positive cocci but bio fire is negative Urine culture is growing multiple organisms Clinically better with decreasing white count and no more fever and or chills but remains tachycardic MRSA screen has been negative and vancomycin will be discontinued We will continue current medications Chronic bedbound status Cannot come out of bed by himself Can feed himself Communicative-seems to be at his baseline No decubitus ulcer Has minimal redness Will apply barrier cream (2) Confusion: Plan: Acute confusion likely secondary to sepsis As per the significant other he usually communicates well Confusion seems to be over (3) Acute UTI: Plan: Urine examination shows possible UTI Uses a condom catheter at home Urine has been sent for culture-has been growing 3 types of organisms (4) HFrEF (heart failure with reduced ejection fraction): Plan: History of [place] in the past with reduced EF of 34% as of echo in 2021 Uses Lasix as an outpatient which is on hold now No acute cardiac symptoms and no fluid overload No signs and or symptoms of fluid overload We will hold Lasix for now (5) History of CVA with residual deficit: Plan: Has had a stroke in the past in 2004 with left-sided weakness (6) Seizure disorder: Plan: Seizure disorder on medication We will continue current medicine (7) GERD (gastroesophageal reflux disease): Plan: Continue PPI (8) Ischemic cardiomyopathy: Plan: CAD with ischemic cardiomyopathy EF of 34% Has cardiac defibrillator in situ 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 (9) Cardiac defibrillator in situ: Plan: As above Plan DVT prophylaxis Continue Eliquis CODE STATUS Full Admission and Anticipated Discharge Date Admission Date: November 25, 2022 Subjective 11/26/2022 The patient was seen and examined in ICU with telemetry status He has been feeling much better today and has been communicating Denies any symptoms No fever and or chills but he still has tachycardia Review of Systems Review of Systems: All systems reviewed and are unremarkable except as noted below Respiratory: No acute respiratory distress Physical Exam Physical Exam: Lying in bed comfortably Constitutional: well developed, well nourished, + ill appearing and average body habitus Eyes: PERRL, conjunctivae normal, anicteric sclerae ENMT: external ear and nose normal, oropharynx normal Neck: trachea midline, no thyromegaly Respiratory: no respiratory distress Auscultation: + diminished lung sounds and + crackles (Minimal crackles at the bases) Cardiovascular: Rate/Rhythm: regular rate, regular rhythm and + tachycardic Heart Sounds: normal S1, normal S2 and + murmur Extremities: no edema Gastrointestinal (Abdomen): Inspection/Auscultation: normal bowel sounds; abdomen not distended Percussion/Palpation: abdomen soft; abdomen nontender Musculoskeletal: No acute arthritis involving any of the joint Neurologic: Alert and awake. Communicative reasonably and seems to be at his baseline. Minimal movements involving the lower extremities Lymphatic: no cervical or axillary lymphadenopathy Results & Data Results & Data Vital Signs (Past 12 Hours) Vital Signs Temp Pulse Pulse Resp BP Pulse Ox O2 Del Method 11/26/22 15:00 37.5 C 113 H 20 110/61 98 Room Air 11/26/22 11:03 37.2 C 101 H 18 118/65 98 Room Air 11/26/22 09:00 84 11/26/22 09:00 Room Air 11/26/22 08:30 37.7 C H 91 H 20 104/59 L 94 Room Air 11/26/22 08:42 84 Laboratory Results Short CBC 11/25/22 11/25/22 11/26/22 Range/Units 14:26 14:26 05:36 WBC Cancelled 31.26 H* 25.11 H Hgb Cancelled 11.6 L 10.2 L Hct Cancelled 34.4 L 30.5 L Plt Count Cancelled 152 97 L BMP 11/25/22 11/26/22 14:41 05:36 Sodium 134 L 136 Potassium 3.6 3.6 Chloride 102 108 H Carbon Dioxide 21 22 BUN 17 17 Creatinine 1.17 0.91 Glucose 132 H 114 H Calcium 8.8 7.6 L Liver Function 11/25/22 Range/Units 14:41 Total Bilirubin 0.7 (0.2-1.0) mg/dl AST 18 (13-39) U/L ALT 6 L (7-52) U/L Alkaline Phosphatase 59 (34-104) U/L Albumin 3.4 (3.4-5.0) gm/dl Urine 11/25/22 Range/Units 16:53 Urine Color Dark Yellow Urine Appearance Turbid A (Clear) Urine pH 5.5 (4.5-7.5) Ur Specific [place] 1.031 H (1.000-1.030) Urine Protein 1+ H (Negative) Urine Glucose (UA) Negative (Negative) Medications Administered Current Inpatient Medications Apixaban (Apixaban 5 Mg Tablet) 5 mg PO BID [facility] Stop: 12/25/22 20:59 Last Admin: 11/25/22 22:14 Dose: Not Given Aspirin (Aspirin 81 Mg Ectab) 81 mg PO MoWeFr [facility] Stop: 12/26/22 08:59 Last Admin: 11/26/22 08:41 Dose: 81 mg Digoxin (Digoxin 0.125 Mg Tab) 0.125 mg PO [facility] Stop: 12/26/22 08:59 Last Admin: 11/26/22 08:42 Dose: 0.125 mg Divalproex Sodium (Divalproex Extended Release 500 Mg Tab) 1,000 mg PO [facility] Stop: 12/25/22 20:59 Last Admin: 11/25/22 22:15 Dose: Not Given Divalproex Sodium (Divalproex Extended Release 250 Mg Tabcr) 250 mg PO [facility] Stop: 12/25/22 20:59 Last Admin: 11/25/22 22:15 Dose: Not Given Enoxaparin Sodium (Enoxaparin 80 Mg/0.8 Ml Syr) 70 mg SQ Q12H [facility] Stop: 12/25/22 22:59 Last Admin: 11/26/22 11:12 Dose: 70 mg Fluoxetine HCl (Fluoxetine Hcl 20 Mg Cap) 40 mg PO [facility] Stop: 12/26/22 08:59 Last Admin: 11/26/22 08:41 Dose: 40 mg Piperacillin Sod/Tazobactam (Sod 4.5 gm/ Dextrose) 120 mls @ 30 mls/hr IV Q8H [facility]; Protocol Stop: 12/05/22 21:59 Last Admin: 11/26/22 12:28 Dose: 30 mls/hr Potassium Chloride/Sodium Chloride (Normal Saline W/20 Meq Kcl) 20 meq in 1,000 mls @ 75 mls/hr IV .[id number] [facility]; Protocol Stop: 11/26/22 21:09 Last Admin: 11/26/22 11:29 Dose: 75 mls/hr Promethazine HCl 12.5 mg/ (Sodium Chloride) 50.5 mls @ 202 mls/hr IV Q6H PRN PRN Reason: Nausea And Vomiting Stop: 12/26/22 03:09 Last Infusion: 11/26/22 04:17 Dose: Infused Multivitamins (Multivitamin Tab) [facility]: 12/26/22 08:59 Last Admin: 11/26/22 08:41 Dose: 1 tab Pantoprazole Sodium (Pantoprazole 40 Mg Tab) 40 mg PO DAILY [facility] Stop: 12/26/22 08:59 Last Admin: 11/26/22 08:41 Dose: 40 mg Rosuvastatin Calcium (Rosuvastatin Calcium 20 Mg Tab) 40 mg PO QAM [facility] Stop: 12/26/22 08:59 Last Admin: 11/26/22 08:41 Dose: 40 mg (7) GERD (gastroesophageal reflux disease) Esophagitis presence: without esophagitis Qualified Code(s): K21.9 - Gastro- esophageal reflux disease without esophagitis
[2022-11-26 17:06] LABS: A calco-baum cmplx NotReported Not Detected (NotDetected); Bact fragilis Not Reported Not Detected (NotDetected); C auris Not Reported Not Detected (NotDetected); CTX-M Resistant Gene Not Detected (NotDetected); Calbicans Not Reported Not Detected (NotDetected); Candida glabrata Not Reported Not Detected (NotDetected); Candida krusei Not Reported Not Detected (NotDetected); Cneoformans/gatti Not Reported Not Detected (NotDetected); Cparapsilosis Not Reported Not Detected (NotDetected); Ctropicalis Not Reported Not Detected (NotDetected); E cloacae compx Not Reported Not Detected (NotDetected); Efaecalis Not Reported Not Detected (NotDetected); Efaecium Not Reported Not Detected (NotDetected); Enterobacterales Not Reported Not Detected (NotDetected); Escherichia coli Not Reported Not Detected (NotDetected); H influenzae Not Reported Not Detected (NotDetected); IMP Resistant Gene Not Detected (NotDetected); K aerogenes Not Reported Not Detected (NotDetected); KPC Resistant Gene Not Detected (NotDetected); Koxytoca Not Reported Not Detected (NotDetected); Kpneumoniae grp Not Reported Not Detected (NotDetected); Lmonocyt Not Reported Not Detected (NotDetected); N meningitidis Not Reported Not Detected (NotDetected); NDM Resistant Gene Not Detected (NotDetected); Proteus spp Not Reported Not Detected (NotDetected); Salmonella spp Not Reported Not Detected (NotDetected); Smarcescens Not Reported Not Detected (NotDetected); Staph lugdunensis Not Reported Not Detected (NotDetected); Staph spp. Not Reported Not Detected (NotDetected); Staphaureus Not Reported Not Detected (NotDetected); Staphepi Not Reported Not Detected (NotDetected); Stenmaltophilia Not Reported Not Detected (NotDetected); Strep agal(GrpB) Not Reported Not Detected (NotDetected); Strep pneum Not Reported Not Detected (NotDetected); Strep pyog (GrpA) Not Reported Not Detected (NotDetected); Strep spp Not Reported Not Detected (NotDetected); VIM Resistant Gene Not Detected (NotDetected)
[2022-11-26 18:12] LABS: P aeruginosa Not Reported DETECTED (NotDetected); Pseudomonas aeruginosa DETECTED (NotDetected)
[2022-11-27] MEDS: PROMETHAZINE HCL 12.5 MG in SODIUM CHLORIDE 0.9% 50 ML IV PRN (01:15)
[2022-11-27] MEDS: PIPERACILLIN/TAZOBACTAM 4.5 GM in DEXTROSE 5% 100 ML IV SCH ×3 (05:35→22:16)
[2022-11-27] MEDS: DIGOXIN 0.125 MG TAB PO SCH (07:58)
[2022-11-27] MEDS: FLUoxetine HCL 20 MG CAP PO SCH (07:59)
[2022-11-27] MEDS: PANTOprazole 40 MG TAB PO SCH (07:59)
[2022-11-27] MEDS: ROSUVASTATIN CALCIUM 20 MG TAB PO SCH (07:59)
[2022-11-27] MEDS: MULTIVITAMIN TAB PO SCH (07:59)
[2022-11-27 08:10] LABS: Hematocrit (blood only) 28.3 % (42.0-52.0); Hemoglobin 9.4 g/dl (14.0-18.0); Mean Corpuscular Hemoglobin 31.5 pg (25.0-34.0); Mean Corpuscular Hgb Conc 33.2 g/dL (32.0-36.0); Mean Platelet Volume 11.3 fL (9.4-12.4); Platelet Count 78 K/uL (130-400); RDW Coefficient of Variation 17.5 % (11.5-14.5); Red Blood Count 2.98 M/uL (4.70-6.10); White Blood Count 13.42 K/ul (4.8-10.8)
[2022-11-27 08:22] LABS: Basophils # (auto) 0.02 K/uL (0-0.2); Basophils % (auto) 0.1 %; Eosinophils # (auto) 0.02 K/uL (0-0.50); Eosinophils % (auto) 0.1 %; Immature Granulocytes # (auto) 0.07 K/uL (0.01-0.20); Immature Granulocytes % (auto) 0.5 %; Lymphocytes # (auto) 1.05 K/uL (1.2-3.4); Lymphocytes % (auto) 7.8 %; Monocytes # (auto) 1.62 K/uL (0.11-0.59); Monocytes % (auto) 12.1 %; Neutrophils # (auto) 10.64 K/uL (1.40-6.50); Neutrophils % (auto) 79.4 %; Polychromasia 1+
[2022-11-27] MEDS: ENOXAPARIN 80 MG/0.8 ML SYR SQ SCH ×2 (10:16→22:15)
[2022-11-27 10:28] LABS: BUN Creatinine Ratio 17.6 (10-20); Calcium 7.7 mg/dl (8.6-10.3); Est GFR (African American) 109.8 ml/min; Est GFR (Non-African American) 94.8 ml/min; Potassium 3.3 mmol/L (3.5-5.1)
--- NOTE | 2022-11-27 12:21 | Discharge Summary ---
Date of Service November 27, 2022 Admission HPI Per Admitting Provider He is a 67-year-old male with significant past medical history of chronic systolic heart failure secondary to ischemic cardiomyopathy EF of 34% as of 2021 status post ICD, history of CAD/CVA/PVD, history of cardiac thrombus on Eliquis, hyperlipidemia seizure disorder, COPD, hypertension and past tobacco abuse apparently was noted to have fever of 103 F last evening at around 7:30 PM. History was taken from his ex-. he has had supper and he vomited after having supper and at that time he was noted to have a temperature of 103.4 F. He was not having any other symptoms at the time and the fever was reasonably controlled throughout the night by giving Tylenol on multiple times. He was noted to be less responsive at around 10 AM and at that time his fever was 101 F and made an appointment with the primary care physician at around 3 PM. She called the nurse and after discussing his current condition the nurse advised him to bring him to the emergency room for further evaluation. He has been less responsive since this morning and also has had some sweating and his urine has been smelling bad for the last few days and he uses a condom catheter for his urine outflow. He does not have any problem with his bowel habit and denies any cough, chest pain or palpitation, shortness of breath. He did not have any more vomiting since last night. He remained less responsive since this morning. In ER his UA was suggestive of infection and white count was elevated he was tachycardic but not febrile and he was admitted to medical telemetry unit for continuation of care. Discharge Exam Lying in bed comfortably Constitutional well developed, well nourished, + ill appearing and average body habitus Eyes PERRL, conjunctivae normal, anicteric sclerae ENMT external ear and nose normal, oropharynx normal Neck trachea midline, no thyromegaly Respiratory no respiratory distress Auscultation: + diminished lung sounds and + crackles (Minimal crackles at the bases) Cardiovascular Rate/Rhythm: regular rate, regular rhythm, + tachycardic and + irregularly irregular Heart Sounds: normal S1, normal S2 and + murmur Extremities: no edema Gastrointestinal (Abdomen) Inspection/Auscultation: normal bowel sounds; abdomen not distended Percussion/Palpation: abdomen soft; abdomen nontender Lymphatic no cervical or axillary lymphadenopathy Discharge Data Allergies Allergy/AdvReac Type Severity Reaction Status Date / Time morphine Allergy Intermediate Itchiness Verified 07/04/22 00:47 naproxen Allergy Intermediate Hives Verified 07/04/22 00:47 Consultations 11/25/22 17:14 ED Decision to Admit Stat Ordered Studies 11/25/22 14:00 CT head/brain wo con Stat Hospital Course (1) Sepsis: Presented with sepsis with fever tachycardia and increased white cell count Secondary to complicated UTI-uses a condom catheter for convenience and the patient is bedbound UTI could be secondary to use of condom catheter Started with intravenous Zosyn and vancomycin Intravenous fluid administration Lactate will be checked again-lactate has been improving 1 out of 2 blood cultures is growing gram-positive cocci but bio fire is negative Urine culture is growing multiple organisms Clinically better with decreasing white count and no more fever and or chills but remains tachycardic MRSA screen has been negative and vancomycin will be discontinued We will continue current medications Chronic bedbound status Cannot come out of bed by himself Can feed himself Communicative-seems to be at his baseline No decubitus ulcer Has minimal redness Will apply barrier cream (2) Confusion: Acute confusion likely secondary to sepsis As per the significant other he usually communicates well Confusion seems to be over (3) Acute UTI: Urine examination shows possible UTI Uses a condom catheter at home Urine has been sent for culture-has been growing 3 types of organisms (4) HFrEF (heart failure with reduced ejection fraction): History of [place] in the past with reduced EF of 34% as of echo in 2021 Uses Lasix as an outpatient which is on hold now No acute cardiac symptoms and no fluid overload No signs and or symptoms of fluid overload We will hold Lasix for now (5) History of CVA with residual deficit: Has had a stroke in the past in 2004 with left-sided weakness (6) Seizure disorder: Seizure disorder on medication We will continue current medicine (7) GERD (gastroesophageal reflux disease): Continue PPI (8) Ischemic cardiomyopathy: CAD with ischemic cardiomyopathy EF of 34% Has cardiac defibrillator in situ 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 (9) Cardiac defibrillator in situ: As above Plan DVT prophylaxis Continue Eliquis CODE STATUS Full Discharge Plan Discharge Items Reason For Visit: SEPSIS, UTI, CHANGE IN MENTAL STATUS Follow-up/Referrals: Richardson Sterling MD [Primary Care Provider] - Medications and DC Order Prescriptions: No Action Eliquis 5 mg tablet 5 mg PO BID multivitamin Tablet 1 tab PO DAILY fluoxetine 40 mg capsule 40 mg PO QAM alendronate 70 mg tablet 70 mg PO WK Rx Instructions: MONDAYS divalproex 500 mg tablet extended release 24 hr 1,000 mg PO HS Rx Instructions: TAKE TWO 500 MG TABLETS ALONG WITH ONE 250 MG TALET TO EQUAL 1250 MG DOSE digoxin 125 mcg tablet 125 mcg PO QAM furosemide 20 mg tablet 20 mg PO Q OTHER DAY divalproex 250 mg tablet extended release 24 hr 250 mg PO HS Rx Instructions: TAKE ONE 250 MG TABLET ALONG WITH TWO 500 MG TABLETS TO EQUAL 1250 MG DOSE dexlansoprazole 60 mg capsule,biphase delayed releas 60 mg PO QAM rosuvastatin 40 mg Tablet 40 mg PO QAM aspirin 81 mg tablet,delayed release (DR/EC) 81 mg PO [id number] Rx Instructions: take daily on thursday,thursday,fridays Admission Data Admit Date/Time: 11/25/22 18:04 Attending Provider: Janneth Granado Admit Provider: Janneth Granado Primary Care Provider: Richardson Sterling Other Providers: Janneth Granado
--- NOTE | 2022-11-27 12:27 | Hospitalist Progress Note ---
Date of Service November 27, 2022 Assessment & Plan (1) Sepsis: Plan: Presented with sepsis with fever tachycardia and increased white cell count Secondary to complicated UTI-uses a condom catheter for convenience and the patient is bedbound UTI could be secondary to use of condom catheter Started with intravenous Zosyn and vancomycin Intravenous fluid administration Lactate will be checked again-lactate has been improving 1 out of 2 blood cultures is growing gram-positive cocci but bio fire is negative Urine culture is growing multiple organisms Clinically better with decreasing white count and no more fever and or chills but remains tachycardic MRSA screen has been negative and vancomycin will be discontinued We will continue current medications Blood culture is growing gram-negative bacilli most likely Pseudomonas-awaiting further identification Clinically much better with improvement of white cell count and symptoms Continue intravenous Zosyn for now Chronic bedbound status Cannot come out of bed by himself Can feed himself Communicative-seems to be at his baseline No decubitus ulcer Has minimal redness Will apply barrier cream (2) Confusion: Plan: Acute metabolic and cephalopathy secondary to sepsis which is due to UTI As per the significant other he usually communicates well Confusion seems to be over He is back to his baseline (3) Acute UTI: Plan: Urine examination shows possible UTI Uses a condom catheter at home Urine has been sent for culture-has been growing 3 types of organisms Blood culture grew gram-negative bacilli seems to be Pseudomonas (4) HFrEF (heart failure with reduced ejection fraction): Plan: History of [place] in the past with reduced EF of 34% as of echo in 2021 Uses Lasix as an outpatient which is on hold now No acute cardiac symptoms and no fluid overload No signs and or symptoms of fluid overload We will hold Lasix for now (5) History of CVA with residual deficit: Plan: Has had a stroke in the past in 2004 with left-sided weakness (6) Seizure disorder: Plan: Seizure disorder on medication We will continue current medicine (7) GERD (gastroesophageal reflux disease): Plan: Continue PPI (8) Ischemic cardiomyopathy: Plan: CAD with ischemic cardiomyopathy EF of 34% Has cardiac defibrillator in situ 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 (9) Cardiac defibrillator in situ: Plan: As above Plan DVT prophylaxis Continue Eliquis CODE STATUS Full Admission and Anticipated Discharge Date Admission Date: November 25, 2022 Subjective 11/26/2022 The patient was seen and examined in ICU with telemetry status He has been feeling much better today and has been communicating Denies any symptoms No fever and or chills but he still has tachycardia 11/27/2022 The patient was seen and examined in ICU with telemetry status He is back to his baseline and has been communicating reasonably Denies any significant symptoms Denies any more fever and or chills Review of Systems Review of Systems: All systems reviewed and are unremarkable except as noted below Physical Exam Physical Exam: Lying in bed comfortably Constitutional: well developed, well nourished, + ill appearing and average body habitus Eyes: PERRL, conjunctivae normal, anicteric sclerae ENMT: external ear and nose normal, oropharynx normal Neck: trachea midline, no thyromegaly Respiratory: no respiratory distress Auscultation: + diminished lung sounds and + crackles (Minimal crackles at the bases) Cardiovascular: Rate/Rhythm: regular rate, regular rhythm, + tachycardic and + irregularly irregular Heart Sounds: normal S1, normal S2 and + murmur Extremities: no edema Gastrointestinal (Abdomen): Inspection/Auscultation: normal bowel sounds; abdomen not distended Percussion/Palpation: abdomen soft; abdomen nontender Musculoskeletal: No acute arthritis in any joint Neurologic: Alert and awake. Minimally communicative. Barely moves the toes on asking. Minimally squeezes with right hand but cannot do with the left hand. Lymphatic: no cervical or axillary lymphadenopathy Results & Data Results & Data Vital Signs (Past 12 Hours) Vital Signs Temp Pulse Pulse Resp BP Pulse Ox O2 Del Method 11/27/22 11:33 36.9 C 82 24 97/55 L 92 Room Air 11/27/22 09:23 Room Air 11/27/22 08:00 36.8 C 82 24 138/77 94 Room Air 11/27/22 07:58 83 11/27/22 04:00 36.8 C 81 26 H 124/66 98 Room Air Laboratory Results Short CBC 11/27/22 Range/Units 07:01 WBC 13.42 H (4.8-10.8) K/ul Hgb 9.4 L (14.0-18.0) g/dl Hct 28.3 L (42.0-52.0) % Plt Count 78 L (130-400) K/uL BMP 11/27/22 07:01 Sodium 136 Potassium 3.3 L Chloride 107 Carbon Dioxide 21 BUN 13 Creatinine 0.74 Glucose 114 H Calcium 7.7 L Medications Administered Current Inpatient Medications Apixaban (Apixaban 5 Mg Tablet) 5 mg PO BID [facility] Stop: 12/25/22 20:59 Last Admin: 11/25/22 22:14 Dose: Not Given Aspirin (Aspirin 81 Mg Ectab) 81 mg PO MoWeFr [facility] Stop: 12/26/22 08:59 Last Admin: 11/26/22 08:41 Dose: 81 mg Digoxin (Digoxin 0.125 Mg Tab) 0.125 mg PO [facility] Stop: 12/26/22 08:59 Last Admin: 11/27/22 07:58 Dose: 0.125 mg Divalproex Sodium (Divalproex Extended Release 500 Mg Tab) 1,000 mg PO [facility] Stop: 12/25/22 20:59 Last Admin: 11/25/22 22:15 Dose: Not Given Divalproex Sodium (Divalproex Extended Release 250 Mg Tabcr) 250 mg PO [facility] Stop: 12/25/22 20:59 Last Admin: 11/25/22 22:15 Dose: Not Given Enoxaparin Sodium (Enoxaparin 80 Mg/0.8 Ml Syr) 70 mg SQ Q12H [facility] Stop: 12/25/22 22:59 Last Admin: 11/27/22 10:16 Dose: 70 mg Fluoxetine HCl (Fluoxetine Hcl 20 Mg Cap) 40 mg PO [facility] Stop: 12/26/22 08:59 Last Admin: 11/27/22 07:59 Dose: 40 mg Piperacillin Sod/Tazobactam (Sod 4.5 gm/ Dextrose) 120 mls @ 30 mls/hr IV Q8H [facility]; Protocol Stop: 12/05/22 21:59 Last Infusion: 11/27/22 09:22 Dose: Infused Promethazine HCl 12.5 mg/ (Sodium Chloride) 50.5 mls @ 202 mls/hr IV Q6H PRN PRN Reason: Nausea And Vomiting Stop: 12/26/22 03:09 Last Infusion: 11/27/22 01:43 Dose: Infused Multivitamins (Multivitamin Tab) 1 tab PO [facility] Stop: 12/26/22 08:59 Last Admin: 11/27/22 07:59 Dose: 1 tab Pantoprazole Sodium (Pantoprazole 40 Mg Tab) 40 mg PO DAILY [facility] Stop: 12/26/22 08:59 Last Admin: 11/27/22 07:59 Dose: 40 mg Rosuvastatin Calcium (Rosuvastatin Calcium 20 Mg Tab) 40 mg PO QAM [facility] Stop: 12/26/22 08:59 Last Admin: 11/27/22 07:59 Dose: 40 mg (7) GERD (gastroesophageal reflux disease) Esophagitis presence: without esophagitis Qualified Code(s): K21.9 - Gastro- esophageal reflux disease without esophagitis
[2022-11-27 14:37] LABS: A calco-baum cmplx NotReported Not Detected (NotDetected); Bact fragilis Not Reported Not Detected (NotDetected); C auris Not Reported Not Detected (NotDetected); CTX-M Resistant Gene Not Detected (NotDetected); Calbicans Not Reported Not Detected (NotDetected); Candida glabrata Not Reported Not Detected (NotDetected); Candida krusei Not Reported Not Detected (NotDetected); Cneoformans/gatti Not Reported Not Detected (NotDetected); Cparapsilosis Not Reported Not Detected (NotDetected); Ctropicalis Not Reported Not Detected (NotDetected); E cloacae compx Not Reported Not Detected (NotDetected); Efaecalis Not Reported Not Detected (NotDetected); Efaecium Not Reported Not Detected (NotDetected); Enterobacterales Not Reported Not Detected (NotDetected); Escherichia coli Not Reported Not Detected (NotDetected); H influenzae Not Reported Not Detected (NotDetected); IMP Resistant Gene Not Detected (NotDetected); K aerogenes Not Reported Not Detected (NotDetected); KPC Resistant Gene Not Detected (NotDetected); Koxytoca Not Reported Not Detected (NotDetected); Kpneumoniae grp Not Reported Not Detected (NotDetected); Lmonocyt Not Reported Not Detected (NotDetected); N meningitidis Not Reported Not Detected (NotDetected); NDM Resistant Gene Not Detected (NotDetected); P aeruginosa Not Reported DETECTED (NotDetected); Proteus spp Not Reported Not Detected (NotDetected); Salmonella spp Not Reported Not Detected (NotDetected); Smarcescens Not Reported Not Detected (NotDetected); Staph lugdunensis Not Reported Not Detected (NotDetected); Staph spp. Not Reported DETECTED (NotDetected); Staphaureus Not Reported Not Detected (NotDetected); Staphepi Not Reported DETECTED (NotDetected); Staphylococcus epidermidis DETECTED (NotDetected); Staphylococcus spp. DETECTED (NotDetected); Stenmaltophilia Not Reported Not Detected (NotDetected); Strep agal(GrpB) Not Reported Not Detected (NotDetected); Strep pneum Not Reported Not Detected (NotDetected); Strep pyog (GrpA) Not Reported Not Detected (NotDetected); Strep spp Not Reported Not Detected (NotDetected); VIM Resistant Gene Not Detected (NotDetected); mecAC Resistant Gene DETECTED (NotDetected)
[2022-11-27 15:03] LABS: Pseudomonas aeruginosa DETECTED (NotDetected)
[2022-11-28] MEDS: PIPERACILLIN/TAZOBACTAM 4.5 GM in DEXTROSE 5% 100 ML IV SCH ×2 (05:50→15:02)
[2022-11-28 07:19] LABS: BUN Creatinine Ratio 10.8 (10-20); Calcium 7.9 mg/dl (8.6-10.3); Creatinine Clr Calc Pharmacy 91.1 ml/min; Est GFR (African American) 115.9 ml/min; Potassium 3.7 mmol/L (3.5-5.1)
[2022-11-28 07:22] LABS: Basophils # (auto) 0.03 K/uL (0-0.2); Basophils % (auto) 0.3 %; Eosinophils # (auto) 0.15 K/uL (0-0.50); Eosinophils % (auto) 1.7 %; Hemoglobin 8.9 g/dl (14.0-18.0); Immature Granulocytes # (auto) 0.03 K/uL (0.01-0.20); Immature Granulocytes % (auto) 0.3 %; Lymphocytes # (auto) 1.44 K/uL (1.2-3.4); Lymphocytes % (auto) 15.9 %; Mean Corpuscular Volume 94.1 fL (80.0-100.0); Mean Platelet Volume 11.4 fL (9.4-12.4); Monocytes % (auto) 13.3 %; Neutrophils # (auto) 6.18 K/uL (1.40-6.50); Neutrophils % (auto) 68.5 %; Platelet Count 79 K/uL (130-400); RDW Coefficient of Variation 17.3 % (11.5-14.5); Red Blood Count 2.87 M/uL (4.70-6.10); White Blood Count 9.03 K/ul (4.8-10.8)
[2022-11-28 07:30] LABS: Phosphorus 1.5 mg/dl (2.5-4.9)
[2022-11-28] MEDS ORDERED: POTASSIUM PHOS 3 MMOL/1 ML INFUSION IV STA (07:32)
[2022-11-28] MEDS ORDERED: POTASSIUM PHOSPHATE 30 MMOL in SODIUM CHLORIDE 0.9% 500 ML IV ONE (07:45)
[2022-11-28] MEDS: PANTOprazole 40 MG TAB PO SCH (08:09)
[2022-11-28] MEDS: MULTIVITAMIN TAB PO SCH (08:09)
[2022-11-28] MEDS: ASPIRIN 81 MG ECTAB PO SCH (08:09)
[2022-11-28] MEDS: ROSUVASTATIN CALCIUM 20 MG TAB PO SCH (08:09)
[2022-11-28] MEDS: FLUoxetine HCL 20 MG CAP PO SCH (08:09)
[2022-11-28] MEDS: DIGOXIN 0.125 MG TAB PO SCH (08:09)
[2022-11-28] MEDS: ACETAMINOPHEN 500 MG TAB PO PRN (08:41)
[2022-11-28] MEDS ORDERED: VANCOMYCIN CONSULT ACTIVE PRN (09:48)
[2022-11-28] MEDS ORDERED: VANCOMYCIN HCL 1,500 MG in SODIUM CHLORIDE 0.9% 500 ML IV STA (09:49)
[2022-11-28] MEDS: ENOXAPARIN 80 MG/0.8 ML SYR SQ SCH ×2 (11:51→22:23)
--- NOTE | 2022-11-28 12:27 | Pharmacy Report ---
Pharmacy PK ABX Note - Date of Service November 28, 2022 - Assessment and Plan Assessment 67 year old M receiving vancomycin and Zosyn for treatment of bacteremia. Blood cultures (11/25) (+) pseudomonas aeruginosa in 3/4 and Staph spp X 2 in 2/4 bottles. Blood biofire (+) MRSE (and Pseudomonas aeruginosa). Urine culture (+) high counts of 3 organisms. Repeat blood cultures collected today. WBC is down trending (31 --> 9). Continues spiking fevers. Renal function stable. Day #1 of antimicrobial (vancomycin) therapy. Plan Vancomycin * Loading dose: 1500 mg IV x 1 * Maintenance dose: 1500 mg IV every 18 hours * Regimen is predicted to achieve target AUC/DANIKA of 400-600 mg/L.hr * Will obtain a level around steady state, or sooner if clinically indicated Pharmacy will continue to follow and will adjust dose/frequency as necessary. Thank you. Pharmacy has transitioned to AUC monitoring for vancomycin. AUC/DANIKA is the preferred PK/PD target and is associated with decreased risk of nephrotoxicity compared to traditional trough targets.
--- NOTE | 2022-11-28 13:18 | Hospitalist Progress Note ---
Date of Service November 28, 2022 Assessment & Plan (1) Sepsis: Plan: Presented with sepsis with fever tachycardia and increased white cell count Secondary to complicated UTI-uses a condom catheter for convenience and the patient is bedbound UTI could be secondary to use of condom catheter Started with intravenous Zosyn and vancomycin Intravenous fluid administration Lactate will be checked again-lactate has been improving 1 out of 2 blood cultures is growing gram-positive cocci but bio fire is negative Urine culture is growing multiple organisms Clinically better with decreasing white count and no more fever and or chills but remains tachycardic MRSA screen has been negative and vancomycin will be discontinued We will continue current medications Blood culture is growing gram-negative bacilli most likely Pseudomonas-awaiting further identification Clinically much better with improvement of white cell count and symptoms Continue intravenous Zosyn for now Bacteremia with recurrence of fever of more than 38 C 1 out of 2 blood cultures are growing staph species, gram-negative bacilli and Pseudomonas aeruginosa-staphylococcal PCR detected positive, methicillin resistance detected and Staph epidermidis PCR detected And other 1 out of 2 blood cultures growing Pseudomonas aeruginosa Repeat blood cultures reports taken on 11/28/2022 have been pending Vancomycin was added from 11/28/2022 on top of intravenous Zosyn Transthoracic echo has been ordered Chronic bedbound status Cannot come out of bed by himself Can feed himself Communicative-seems to be at his baseline No decubitus ulcer Has minimal redness Will apply barrier cream (2) Confusion: Plan: Acute metabolic and cephalopathy secondary to sepsis which is due to UTI As per the significant other he usually communicates well Confusion seems to be over He is back to his baseline (3) Acute UTI: Plan: Urine examination shows possible UTI Uses a condom catheter at home Urine has been sent for culture-has been growing 3 types of organisms Blood culture grew gram-negative bacilli seems to be Pseudomonas Urine culture is growing 3 different organisms (4) HFrEF (heart failure with reduced ejection fraction): Plan: History of DE in the past with reduced EF of 34% as of echo in 2021 Uses Lasix as an outpatient which is on hold now No acute cardiac symptoms and no fluid overload No signs and or symptoms of fluid overload We will hold Lasix for now (5) History of CVA with residual deficit: Plan: Has had a stroke in the past in 2004 with left-sided weakness Has been in bedbound status for a long time (6) Seizure disorder: Plan: Seizure disorder on medication We will continue current medicine (7) GERD (gastroesophageal reflux disease): Plan: Continue PPI (8) Ischemic cardiomyopathy: Plan: CAD with ischemic cardiomyopathy EF of 34% Has cardiac defibrillator in situ 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 (9) Cardiac defibrillator in situ: Plan: As above Plan DVT prophylaxis Continue Eliquis CODE STATUS Full Admission and Anticipated Discharge Date Admission Date: November 25, 2022 Subjective 11/26/2022 The patient was seen and examined in ICU with telemetry status He has been feeling much better today and has been communicating Denies any symptoms No fever and or chills but he still has tachycardia 11/27/2022 The patient was seen and examined in ICU with telemetry status He is back to his baseline and has been communicating reasonably Denies any significant symptoms Denies any more fever and or chills 11/28/2022 The patient was seen and examined in telemetry unit He has been feeling better and seems to be at his baseline Has had fever early in the morning of more than 38 C He denied any new symptoms and has been eating and drinking reasonably Review of Systems Review of Systems: All systems reviewed and are unremarkable except as noted below Respiratory: No acute respiratory distress Physical Exam Physical Exam: Lying in bed comfortably Constitutional: well developed, well nourished, + ill appearing and average body habitus Eyes: PERRL, conjunctivae normal, anicteric sclerae ENMT: external ear and nose normal, oropharynx normal Neck: trachea midline, no thyromegaly Respiratory: no respiratory distress Auscultation: + diminished lung sounds and + crackles (Minimal crackles at the bases) Cardiovascular: Rate/Rhythm: regular rate, regular rhythm, + tachycardic and + irregularly irregular Heart Sounds: normal S1, normal S2 and + murmur Extremities: no edema Gastrointestinal (Abdomen): Inspection/Auscultation: normal bowel sounds; abdomen not distended Percussion/Palpation: abdomen soft; abdomen nontender Musculoskeletal: No acute arthritis involving any joint Neurologic: Alert and awake. Remains bedbound status. Very little movements of the toes on commands. Minimal movements involving the upper extremities. Lymphatic: no cervical or axillary lymphadenopathy Results & Data Results & Data Vital Signs (Past 12 Hours) Vital Signs Temp Pulse Pulse Resp BP Pulse Ox O2 Del Method 11/28/22 09:56 36.9 C 11/28/22 08:09 73 11/28/22 08:03 38.1 C H 71 18 92/57 L 94 Room Air 11/28/22 03:45 38.1 C H 74 18 94/61 L 97 Room Air Laboratory Results Short CBC 11/28/22 Range/Units 06:35 WBC 9.03 (4.8-10.8) K/ul Hgb 8.9 L (14.0-18.0) g/dl Hct 27.0 L (42.0-52.0) % Plt Count 79 L (130-400) K/uL BMP 11/28/22 06:35 Sodium 137 Potassium 3.7 Chloride 110 H Carbon Dioxide 23 BUN 7 Creatinine 0.65 Glucose 90 Calcium 7.9 L Medications Administered Current Inpatient Medications Acetaminophen (Acetaminophen 500 Mg Tab) 1,000 mg PO Q8H PRN PRN Reason: Fever Stop: 12/28/22 08:21 Last Admin: 11/28/22 08:41 Dose: 1,000 mg Apixaban (Apixaban 5 Mg Tablet) 5 mg PO BID [facility] Stop: 12/25/22 20:59 Last Admin: 11/25/22 22:14 Dose: Not Given Aspirin (Aspirin 81 Mg Ectab) 81 mg PO MoWeFr [facility] Stop: 12/26/22 08:59 Last Admin: 11/28/22 08:09 Dose: 81 mg Digoxin (Digoxin 0.125 Mg Tab) 0.125 mg PO QAM [facility] Stop: 12/26/22 08:59 Last Admin: 11/28/22 08:09 Dose: 0.125 mg Divalproex Sodium (Divalproex Extended Release 500 Mg Tab) 1,000 mg PO HS [facility] Stop: 12/25/22 20:59 Last Admin: 11/25/22 22:15 Dose: Not Given Divalproex Sodium (Divalproex Extended Release 250 Mg Tabcr) 250 mg PO HS [facility] Stop: 12/25/22 20:59 Last Admin: 11/25/22 22:15 Dose: Not Given Enoxaparin Sodium (Enoxaparin 80 Mg/0.8 Ml Syr) 70 mg SQ Q12H [facility] Stop: 12/25/22 22:59 Last Admin: 11/28/22 11:51 Dose: 70 mg Fluoxetine HCl (Fluoxetine Hcl 20 Mg Cap) 40 mg PO QAM [facility] Stop: 12/26/22 08:59 Last Admin: 11/28/22 08:09 Dose: 40 mg Piperacillin Sod/Tazobactam (Sod 4.5 gm/ Dextrose) 120 mls @ 30 mls/hr IV Q8H [facility]; Protocol Stop: 12/05/22 21:59 Last Infusion: 11/28/22 09:50 Dose: Infused Promethazine HCl 12.5 mg/ (Sodium Chloride) 50.5 mls @ 202 mls/hr IV Q6H PRN PRN Reason: Nausea And Vomiting Stop: 12/26/22 03:09 Last Infusion: 11/27/22 01:43 Dose: Infused Potassium Phosphate 30 mmol/ (Sodium Chloride) 510 mls @ 88 mls/hr IV ONE ONE Stop: 11/28/22 13:32 Last Admin: 11/28/22 08:08 Dose: 88 mls/hr Vancomycin HCl 1,500 mg/ (Sodium Chloride) 530 mls @ 200 mls/hr IV Q18H [facility]; Protocol Stop: 12/12/22 20:59 Miscellaneous Information (Vancomycin Consult Active) 1 each N/A UD PRN PRN Reason: Consult Stop: 12/28/22 09:47 Multivitamins (Multivitamin Tab) 1 tab PO [facility] Stop: 12/26/22 08:59 Last Admin: 11/28/22 08:09 Dose: 1 tab Pantoprazole Sodium (Pantoprazole 40 Mg Tab) 40 mg PO DAILY [facility] Stop: 12/26/22 08:59 Last Admin: 11/28/22 08:09 Dose: 40 mg Rosuvastatin Calcium (Rosuvastatin Calcium 20 Mg Tab) 40 mg PO QAM [facility] Stop: 12/26/22 08:59 Last Admin: 11/28/22 08:09 Dose: 40 mg (7) GERD (gastroesophageal reflux disease) Esophagitis presence: without esophagitis Qualified Code(s): K21.9 - Gastro- esophageal reflux disease without esophagitis
[2022-11-28] MEDS: CEFEPIME 2,000 MG in SYRINGE 0 ML IV SCH ×2 (16:10→22:24)
--- NOTE | 2022-11-28 17:43 | CT Scan Report ---
CT abd pelvis wo con CLINICAL HISTORY: R/O abscess TECHNIQUE: Helical axial images of the abdomen and pelvis were obtained. Automated dose lowering tech niques and/or adjustment according to patient size were utilized for this exam. This exam was perfor med without intravenous contrast. CT DOSE: 544.58 mGy.cm COMPARISON: Comparison is made to CT abdomen pelvis 07/04/2022 FINDINGS: Lower chest: There is trace bilateral pleural effusion, right greater than left, with associated ate lectasis. Partial visualization of pacemaker defibrillator. Liver: Unremarkable. No focal lesions are seen. Gallbladder and biliary tree: Cholelithiasis is seen without evidence of cholecystitis. No intra- or extrahepatic biliary ductal dilation. Pancreas: Unremarkable, no focal lesions. Spleen: Unremarkable. Adrenals: Unremarkable. Kidneys and ureters: Nonobstructive stone is noted in the right renal pelvis. Bladder: Diffuse homogeneous wall thickening is seen. Reproductive organs: Unremarkable. Bowel: Unremarkable. Lymph nodes Retroperitoneal: Unremarkable. Pelvic: Unremarkable. Mesenteric: Unremarkable. Peritoneum: Normal. Vessels: Atherosclerotic calcifications are seen. Abdominal wall: Mild soft tissue edema is seen. Bones: Left femoral screws are seen. Degenerative changes are seen in the spine. Avascular necrosis o f the femoral heads incidentally noted. IMPRESSION: 1. No acute abnormalities in particular no evidence of abscess. 2. Bladder wall thickening which can be seen in cystitis. Of note, noncontrast CT is not a sensitive modality for pyelonephritis. 3. Nonobstructive stone in the right renal pelvis. 4. Cholelithiasis without cholecystitis. 5. Trace bilateral pleural effusions with underlying atelectasis. Cardiomegaly. ACT 112: Negative or not required by law. Electronically signed by: Toni Chapman M.D. 11/28/2022 5:41 PM
[2022-11-28] MEDS ORDERED: VANCOMYCIN HCL 1,500 MG in SODIUM CHLORIDE 0.9% 500 ML IV SCH (21:00)
[2022-11-28] MEDS: DIVALPROEX EXTENDED RELEASE 250 MG TABCR PO SCH (22:21)
[2022-11-28] MEDS: DIVALPROEX EXTENDED RELEASE 500 MG TAB PO SCH (22:21)
[2022-11-28] MEDS: APIXABAN 5 MG TABLET PO SCH (22:22)
[2022-11-29] MEDS: CEFEPIME 2,000 MG in SYRINGE 0 ML IV SCH ×3 (06:00→23:19)
[2022-11-29] MEDS: PANTOprazole 40 MG TAB PO SCH (08:02)
[2022-11-29] MEDS: FLUoxetine HCL 20 MG CAP PO SCH (08:02)
[2022-11-29] MEDS: APIXABAN 5 MG TABLET PO SCH ×2 (08:02→20:24)
[2022-11-29] MEDS: ROSUVASTATIN CALCIUM 20 MG TAB PO SCH (08:03)
[2022-11-29] MEDS: MULTIVITAMIN TAB PO SCH (08:03)
[2022-11-29] MEDS: DIGOXIN 0.125 MG TAB PO SCH (08:03)
[2022-11-29 08:42] LABS: BUN Creatinine Ratio 10.5 (10-20); Calcium 8.2 mg/dl (8.6-10.3); Creatinine Clr Calc Pharmacy 103.9 ml/min; Est GFR (African American) 122.3 ml/min; Est GFR (Non-African American) 105.5 ml/min; Magnesium 1.9 mg/dl (1.7-2.4); Phosphorus 2.6 mg/dl (2.5-4.9)
--- NOTE | 2022-11-29 12:58 | Hospitalist Progress Note ---
Date of Service November 29, 2022 Assessment & Plan (1) Sepsis: Plan: Presented with sepsis with fever tachycardia and increased white cell count Secondary to complicated UTI-uses a condom catheter for convenience and the patient is bedbound UTI could be secondary to use of condom catheter Started with intravenous Zosyn and vancomycin Intravenous fluid administration Lactate will be checked again-lactate has been improving 1 out of 2 blood cultures is growing gram-positive cocci but bio fire is negative Urine culture is growing multiple organisms Clinically better with decreasing white count and no more fever and or chills but remains tachycardic MRSA screen has been negative and vancomycin will be discontinued We will continue current medications Blood culture is growing gram-negative bacilli most likely Pseudomonas-awaiting further identification Clinically much better with improvement of white cell count and symptoms Antibiotic has been changed to intravenous cefepime 2 g every 8 hourly as per recommendation from the ID CT of the abdomen pelvis did not show any abscess and or any other significant lesions Bacteremia with recurrence of fever of more than 38 C 1 out of 2 blood cultures are growing staph species, gram-negative bacilli and Pseudomonas aeruginosa-staphylococcal PCR detected positive, methicillin resistance detected and Staph epidermidis PCR detected And other 1 out of 2 blood cultures growing Pseudomonas aeruginosa Repeat blood cultures reports taken on 11/28/2022 have been pending Vancomycin was added from 11/28/2022 on top of intravenous Zosyn Appreciate ID input and recommendation-discontinue vancomycin and Zosyn and start intravenous cefepime no oral substitute for Pseudomonas aeruginosa Echo of the heart showed normal LV chamber size and wall thickness, moderately reduced LV systolic function with EF of 30 to 35%, large sized apical anteroseptal and anterior wall motion abnormality with akinesis of the segments, there is moderate sized apical scar without any thrombus visualized, grade 1 diastolic dysfunction, aortic valve sclerosis moderate without significant stenosis and no valvular lesions consistent with endocarditis visualized within the scope of this examination. Repeat blood cultures have been negative Chronic bedbound status Cannot come out of bed by himself Can feed himself Communicative-seems to be at his baseline He is simply paraplegic with left hemiplegia and can move right upper extremity reasonably No decubitus ulcer Has minimal redness Will apply barrier cream (2) Confusion: Plan: Acute metabolic and cephalopathy secondary to sepsis which is due to UTI As per the significant other he usually communicates well Confusion seems to be over He is back to his baseline (3) Acute UTI: Plan: Urine examination shows possible UTI Uses a condom catheter at home Urine has been sent for culture-has been growing 3 types of organisms Blood culture grew gram-negative bacilli seems to be Pseudomonas Urine culture is growing 3 different organisms (4) HFrEF (heart failure with reduced ejection fraction): Plan: History of MS in the past with reduced EF of 34% as of echo in 2021 Uses Lasix as an outpatient which is on hold now No acute cardiac symptoms and no fluid overload No signs and or symptoms of fluid overload We will hold Lasix for now (5) History of CVA with residual deficit: Plan: Has had a stroke in the past in 2004 with left-sided weakness Has been in bedbound status for a long time (6) Seizure disorder: Plan: Seizure disorder on medication We will continue current medicine (7) GERD (gastroesophageal reflux disease): Plan: Continue PPI (8) Ischemic cardiomyopathy: Plan: CAD with ischemic cardiomyopathy EF of 34% Has cardiac defibrillator in situ 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 Admission and Anticipated Discharge Date Admission Date: November 25, 2022 Subjective 11/26/2022 The patient was seen and examined in ICU with telemetry status He has been feeling much better today and has been communicating Denies any symptoms No fever and or chills but he still has tachycardia 11/27/2022 The patient was seen and examined in ICU with telemetry status He is back to his baseline and has been communicating reasonably Denies any significant symptoms Denies any more fever and or chills 11/28/2022 The patient was seen and examined in telemetry unit He has been feeling better and seems to be at his baseline Has had fever early in the morning of more than 38 C He denied any new symptoms and has been eating and drinking reasonably 11/29/2022 The patient was seen and examined in telemetry unit He has been back to his baseline Denies any significant symptoms and has been eating and drinking reasonably Review of Systems Review of Systems: All systems reviewed and are unremarkable except as noted below Respiratory: No acute respiratory distress Physical Exam Physical Exam: Lying in bed comfortably Constitutional: well developed, well nourished, + ill appearing and average body habitus Eyes: PERRL, conjunctivae normal, anicteric sclerae ENMT: external ear and nose normal, oropharynx normal Neck: trachea midline, no thyromegaly Respiratory: no respiratory distress Auscultation: + diminished lung sounds and + crackles (Minimal crackles at the bases) Cardiovascular: Rate/Rhythm: regular rate, regular rhythm, + tachycardic and + irregularly irregular Heart Sounds: normal S1, normal S2 and + murmur Extremities: no edema Gastrointestinal (Abdomen): Inspection/Auscultation: normal bowel sounds; abdomen not distended Percussion/Palpation: abdomen soft; abdomen nontender Musculoskeletal: No acute arthritis involving any of the joints Neurologic: Alert and awake. Has left-sided hemiplegia, paraplegic, minimal movement i nvolving the right upper extremity Lymphatic: no cervical or axillary lymphadenopathy Results & Data Results & Data Vital Signs (Past 12 Hours) Vital Signs Temp Pulse Pulse Resp BP Pulse Ox O2 Del Method 11/29/22 11:31 37.1 C 68 17 108/68 97 Room Air 11/29/22 08:14 37.0 C 80 18 106/62 97 Room Air 11/29/22 07:00 73 11/29/22 02:02 36.8 C 80 18 115/63 98 Room Air Laboratory Results [facility] 11/29/22 08:03 Sodium 139 Potassium 4.0 Chloride 112 H Carbon Dioxide 23 BUN 6 Creatinine 0.57 L Glucose 85 Calcium 8.2 L Medications Administered Current Inpatient Medications Acetaminophen (Acetaminophen 500 Mg Tab) 1,000 mg PO Q8H PRN PRN Reason: Fever Stop: 12/28/22 08:21 Last Admin: 11/28/22 08:41 Dose: 1,000 mg Apixaban (Apixaban 5 Mg Tablet) 5 mg PO BID [facility] Stop: 12/25/22 20:59 Last Admin: 11/29/22 08:02 Dose: 5 mg Aspirin (Aspirin 81 Mg Ectab) 81 mg PO MoWeFr [facility] Stop: 12/26/22 08:59 Last Admin: 11/28/22 08:09 Dose: 81 mg Digoxin (Digoxin 0.125 Mg Tab) 0.125 mg PO QAM [facility] Stop: 12/26/22 08:59 Last Admin: 11/29/22 08:03 Dose: 0.125 mg Divalproex Sodium (Divalproex Extended Release 500 Mg Tab) 1,000 mg PO [facility] Stop: 12/25/22 20:59 Last Admin: 11/28/22 22:21 Dose: 1,000 mg Divalproex Sodium (Divalproex Extended Release 250 Mg Tabcr) 250 mg PO [facility] Stop: 12/25/22 20:59 Last Admin: 11/28/22 22:21 Dose: 250 mg Fluoxetine HCl (Fluoxetine Hcl 20 Mg Cap) 40 mg PO QAM [facility] Stop: 12/26/22 08:59 Last Admin: 11/29/22 08:02 Dose: 40 mg Promethazine HCl 12.5 mg/ (Sodium Chloride) 50.5 mls @ 202 mls/hr IV Q6H PRN PRN Reason: Nausea And Vomiting Stop: 12/26/22 03:09 Last Infusion: 11/27/22 01:43 Dose: Infused Cefepime HCl 2,000 mg/ Syringe 20 mls @ 5 mls/min IV Q8H [facility]; Protocol Stop: 12/12/22 14:59 Last Admin: 11/29/22 06:00 Dose: 5 mls/min Multivitamins ([facility]amin Tab) [facility] [place]: 12/26/22 08:59 Last Admin: 11/29/22 08:03 Dose: 1 tab Pantoprazole Sodium (Pantoprazole 40 Mg Tab) 40 mg PO DAILY [facility] Stop: 12/26/22 08:59 Last Admin: 11/29/22 08:02 Dose: 40 mg Rosuvastatin Calcium (Rosuvastatin Calcium 20 Mg Tab) 40 [facility] [place] [place]: 12/26/22 08:59 Last Admin: 11/29/22 08:03 Dose: 40 mg (7) GERD (gastroesophageal reflux disease) Esophagitis presence: without esophagitis Qualified Code(s): K21.9 - Gastro- esophageal reflux disease without esophagitis
[2022-11-29] MEDS: DIVALPROEX EXTENDED RELEASE 500 MG TAB PO SCH (20:24)
[2022-11-29] MEDS: DIVALPROEX EXTENDED RELEASE 250 MG TABCR PO SCH (20:24)
[2022-11-30] MEDS: CEFEPIME 2,000 MG in SYRINGE 0 ML IV SCH ×3 (06:06→22:16)
[2022-11-30 07:44] LABS: Basophils # (auto) 0.05 K/uL (0-0.2); Basophils % (auto) 0.6 %; Eosinophils # (auto) 0.28 K/uL (0-0.50); Eosinophils % (auto) 3.1 %; Hematocrit (blood only) 27.2 % (42.0-52.0); Immature Granulocytes # (auto) 0.26 K/uL (0.01-0.20); Immature Granulocytes % (auto) 2.9 %; Lymphocytes # (auto) 1.87 K/uL (1.2-3.4); Lymphocytes % (auto) 20.6 %; Mean Corpuscular Hgb Conc 33.1 g/dL (32.0-36.0); Mean Corpuscular Volume 93.8 fL (80.0-100.0); Mean Platelet Volume 11.6 fL (9.4-12.4); Monocytes # (auto) 1.61 K/uL (0.11-0.59); Monocytes % (auto) 17.7 %; Neutrophils # (auto) 5.01 K/uL (1.40-6.50); Neutrophils % (auto) 55.1 %; Platelet Count 145 K/uL (130-400); RDW Coefficient of Variation 16.5 % (11.5-14.5); RDW Standard Deviation 56.8 fL (36.4-46.3); White Blood Count 9.08 K/ul (4.8-10.8)
[2022-11-30 08:12] LABS: Albumin Globulin Ratio 0.9 (0.9-2); Albumin Level 2.9 gm/dl (3.4-5.0); BUN Creatinine Ratio 10.3 (10-20); Bilirubin,Total 0.6 mg/dl (0.2-1.0); Calcium 8.8 mg/dl (8.6-10.3); Creatinine Clr Calc Pharmacy 102.1 ml/min; Est GFR (African American) 121.4 ml/min; Est GFR (Non-African American) 104.8 ml/min; Globulin 3.4 gm/dl (2.5-4.0); Potassium 4.2 mmol/L (3.5-5.1); Total Protein 6.3 gm/dl (6.0-8.3)
[2022-11-30] MEDS: DIGOXIN 0.125 MG TAB PO SCH (08:38)
[2022-11-30] MEDS: PANTOprazole 40 MG TAB PO SCH (08:38)
[2022-11-30] MEDS: APIXABAN 5 MG TABLET PO SCH ×2 (08:38→19:51)
[2022-11-30] MEDS: FLUoxetine HCL 20 MG CAP PO SCH (08:38)
[2022-11-30] MEDS: ROSUVASTATIN CALCIUM 20 MG TAB PO SCH (08:38)
[2022-11-30] MEDS: MULTIVITAMIN TAB PO SCH (08:38)
--- NOTE | 2022-11-30 13:02 | Hospitalist Progress Note ---
Date of Service November 30, 2022 Assessment & Plan (1) Sepsis: Plan: Presented with sepsis with fever tachycardia and increased white cell count Secondary to complicated UTI-uses a condom catheter for convenience and the patient is bedbound UTI could be secondary to use of condom catheter Started with intravenous Zosyn and vancomycin Intravenous fluid administration Lactate will be checked again-lactate has been improving 1 out of 2 blood cultures is growing gram-positive cocci but bio fire is negative Urine culture is growing multiple organisms Clinically better with decreasing white count and no more fever and or chills but remains tachycardic MRSA screen has been negative and vancomycin will be discontinued We will continue current medications Blood culture is growing gram-negative bacilli most likely Pseudomonas-awaiting further identification Clinically much better with improvement of white cell count and symptoms Antibiotic has been changed to intravenous cefepime 2 g every 8 hourly as per recommendation from the ID CT of the abdomen pelvis did not show any abscess and or any other significant lesions Clinically much better and he is back to his baseline Bacteremia with recurrence of fever of more than 38 C 1 out of 2 blood cultures are growing staph species, gram-negative bacilli and Pseudomonas aeruginosa-staphylococcal PCR detected positive, methicillin resistance detected and Staph epidermidis PCR detected And other 1 out of 2 blood cultures growing Pseudomonas aeruginosa Repeat blood cultures reports taken on 11/28/2022 have been pending Vancomycin was added from 11/28/2022 on top of intravenous Zosyn Appreciate ID input and recommendation-discontinue vancomycin and Zosyn and start intravenous cefepime no oral substitute for Pseudomonas aeruginosa Echo of the heart showed normal LV chamber size and wall thickness, moderately reduced LV systolic function with EF of 30 to 35%, large sized apical anteroseptal and anterior wall motion abnormality with akinesis of the segments, there is moderate sized apical scar without any thrombus visualized, grade 1 diastolic dysfunction, aortic valve sclerosis moderate without significant stenosis and no valvular lesions consistent with endocarditis visualized within the scope of this examination. Repeat blood cultures have been negative Chronic bedbound status Cannot come out of bed by himself Can feed himself Communicative-seems to be at his baseline He is paraplegic with left hemiplegia and can move right upper extremity reasonably No decubitus ulcer Has minimal redness Will apply barrier cream (2) Confusion: Plan: Acute metabolic and cephalopathy secondary to sepsis which is due to UTI As per the significant other he usually communicates well Confusion seems to be over He is back to his baseline Likely discharge in a day or 2 (3) Acute UTI: Plan: Urine examination shows possible UTI Uses a condom catheter at home Urine has been sent for culture-has been growing 3 types of organisms Blood culture grew gram-negative bacilli seems to be Pseudomonas Urine culture is growing 3 different organisms (4) HFrEF (heart failure with reduced ejection fraction): Plan: History of [place] in the past with reduced EF of 34% as of echo in 2021 Uses Lasix as an outpatient which is on hold now No acute cardiac symptoms and no fluid overload No signs and or symptoms of fluid overload We will hold Lasix for now (5) History of CVA with residual deficit: Plan: Has had a stroke in the past in 2004 with left-sided weakness Has been in bedbound status for a long time (6) Seizure disorder: Plan: Seizure disorder on medication We will continue current medicine (7) GERD (gastroesophageal reflux disease): Plan: Continue PPI (8) Ischemic cardiomyopathy: Plan: CAD with ischemic cardiomyopathy EF of 34% Has cardiac defibrillator in situ 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 Admission and Anticipated Discharge Date Admission Date: November 25, 2022 Subjective 11/26/2022 The patient was seen and examined in ICU with telemetry status He has been feeling much better today and has been communicating Denies any symptoms No fever and or chills but he still has tachycardia 11/27/2022 The patient was seen and examined in ICU with telemetry status He is back to his baseline and has been communicating reasonably Denies any significant symptoms Denies any more fever and or chills 11/28/2022 The patient was seen and examined in telemetry unit He has been feeling better and seems to be at his baseline Has had fever early in the morning of more than 38 C He denied any new symptoms and has been eating and drinking reasonably 11/29/2022 The patient was seen and examined in telemetry unit He has been back to his baseline Denies any significant symptoms and has been eating and drinking reasonably 11/30/2022 The patient was seen and examined in telemetry unit He has been feeling much better and denies any significant symptoms No fever and or chills and he is back to his baseline Review of Systems Review of Systems: All systems reviewed and are unremarkable except as noted below Respiratory: No acute respiratory distress Physical Exam Physical Exam: Lying in bed comfortably Constitutional: well developed, well nourished, + ill appearing and average body habitus Eyes: PERRL, conjunctivae normal, anicteric sclerae ENMT: external ear and nose normal, oropharynx normal Neck: trachea midline, no thyromegaly Respiratory: no respiratory distress Auscultation: + diminished lung sounds and + crackles (Minimal crackles at the bases) Cardiovascular: Rate/Rhythm: regular rate, regular rhythm, + tachycardic and + irregularly irregular Heart Sounds: normal S1, normal S2 and + murmur Extremities: no edema Gastrointestinal (Abdomen): Inspection/Auscultation: normal bowel sounds; abdomen not distended Percussion/Palpation: abdomen soft; abdomen nontender Musculoskeletal: No acute arthritis involving any joint Neurologic: Alert and awake. Has been feeding himself. Cannot move remaining extremities secondary to prior stroke Lymphatic: no cervical or axillary lymphadenopathy Results & Data Results & Data Vital Signs (Past 12 Hours) Vital Signs Temp Pulse Pulse Resp BP BP Pulse Ox 11/30/22 12:47 37.4 C 89 18 100/57 L 97 11/30/22 08:38 79 11/30/22 08:18 36.6 C 79 18 91/51 L 92 11/30/22 07:00 80 11/30/22 03:31 36.8 C 79 19 102/68 97 O2 Del Method 11/30/22 12:47 Room Air 11/30/22 08:38 11/30/22 08:18 Room Air 11/30/22 07:00 11/30/22 03:31 Room Air Laboratory Results Short CBC 11/30/22 Range/Units 06:58 WBC 9.08 (4.8-10.8) K/ul Hgb 9.0 L (14.0-18.0) g/dl Hct 27.2 L (42.0-52.0) % Plt Count 145 (130-400) K/uL BMP 11/30/22 06:58 Sodium 139 Potassium 4.2 Chloride 108 H Carbon Dioxide 26 BUN 6 Creatinine 0.58 L Glucose 82 Calcium 8.8 Liver Function 11/30/22 Range/Units 06:58 Total Bilirubin 0.6 (0.2-1.0) mg/dl AST 29 (13-39) U/L ALT 29 (7-52) U/L Alkaline Phosphatase 62 (34-104) U/L Albumin 2.9 L (3.4-5.0) gm/dl Medications Administered Current Inpatient Medications Acetaminophen (Acetaminophen 500 Mg Tab) 1,000 mg PO Q8H PRN PRN Reason: Fever Stop: 12/28/22 08:21 Last Admin: 11/28/22 08:41 Dose: 1,000 mg Apixaban (Apixaban 5 Mg Tablet) 5 mg PO BID [facility] Stop: 12/25/22 20:59 Last Admin: 11/30/22 08:38 Dose: 5 mg Aspirin (Aspirin 81 Mg Ectab) 81 mg PO MoWeFr [facility] Stop: 12/26/22 08:59 Last Admin: 11/28/22 08:09 Dose: 81 mg Digoxin (Digoxin 0.125 Mg Tab) [facility] Stop: 12/26/22 08:59 Last Admin: 11/30/22 08:38 Dose: 0.125 mg Divalproex Sodium (Divalproex Extended Release 500 Mg Tab) 1,000 mg PO [facility] Stop: 12/25/22 20:59 Last Admin: 11/29/22 20:24 Dose: 1,000 mg Divalproex Sodium (Divalproex Extended Release 250 Mg Tabcr) 250 mg PO [facility] Stop: 12/25/22 20:59 Last Admin: 11/29/22 20:24 Dose: 250 mg Fluoxetine HCl (Fluoxetine Hcl 20 Mg Cap) [facility] Stop: 12/26/22 08:59 Last Admin: 11/30/22 08:38 Dose: 40 mg Promethazine HCl 12.5 mg/ (Sodium Chloride) 50.5 mls @ 202 mls/hr IV Q6H PRN PRN Reason: Nausea And Vomiting Stop: 12/26/22 03:09 Last Infusion: 11/27/22 01:43 Dose: Infused Cefepime HCl 2,000 mg/ Syringe 20 mls @ 5 mls/min IV Q8H [facility]; Protocol Stop: 12/12/22 14:59 Last Admin: 11/30/22 06:06 Dose: 5 mls/min Multivitamins (Multivitamin Tab) 1 tab PO QAM [facility] Stop: 12/26/22 08:59 Last Admin: 11/30/22 08:38 Dose: 1 tab Pantoprazole Sodium (Pantoprazole 40 Mg Tab) 40 mg PO DAILY [facility] Stop: 12/26/22 08:59 Last Admin: 11/30/22 08:38 Dose: 40 mg Rosuvastatin Calcium (Rosuvastatin Calcium 20 Mg Tab) 40 mg PO QAM [facility] Stop: 12/26/22 08:59 Last Admin: 11/30/22 08:38 Dose: 40 mg (7) GERD (gastroesophageal reflux disease) Esophagitis presence: without esophagitis Qualified Code(s): K21.9 - Gastro- esophageal reflux disease without esophagitis
[2022-11-30] MEDS: ACETAMINOPHEN 500 MG TAB PO PRN (19:50)
[2022-11-30] MEDS: DIVALPROEX EXTENDED RELEASE 500 MG TAB PO SCH (19:51)
[2022-11-30] MEDS: DIVALPROEX EXTENDED RELEASE 250 MG TABCR PO SCH (19:52)
[2022-12-01] MEDS: CEFEPIME 2,000 MG in SYRINGE 0 ML IV SCH ×3 (06:03→23:11)
[2022-12-01] MEDS: APIXABAN 5 MG TABLET PO SCH ×2 (08:38→20:37)
[2022-12-01] MEDS: ASPIRIN 81 MG ECTAB PO SCH (08:40)
[2022-12-01] MEDS: DIGOXIN 0.125 MG TAB PO SCH (08:40)
[2022-12-01] MEDS: FLUoxetine HCL 20 MG CAP PO SCH (08:43)
[2022-12-01] MEDS: ROSUVASTATIN CALCIUM 20 MG TAB PO SCH (08:44)
[2022-12-01] MEDS: MULTIVITAMIN TAB PO SCH (08:44)
[2022-12-01] MEDS: PANTOprazole 40 MG TAB PO SCH (08:44)
--- NOTE | 2022-12-01 15:53 | Hospitalist Progress Note ---
Date of Service December 01, 2022 Assessment & Plan (1) Sepsis: Plan: Presented with sepsis with fever tachycardia and increased white cell count Secondary to complicated UTI-uses a condom catheter for convenience and the patient is bedbound UTI could be secondary to use of condom catheter Started with intravenous Zosyn and vancomycin Intravenous fluid administration Lactate will be checked again-lactate has been improving 1 out of 2 blood cultures is growing gram-positive cocci but bio fire is negative Urine culture is growing multiple organisms Clinically better with decreasing white count and no more fever and or chills but remains tachycardic MRSA screen has been negative and vancomycin will be discontinued We will continue current medications Blood culture is growing gram-negative bacilli most likely Pseudomonas-awaiting further identification Clinically much better with improvement of white cell count and symptoms Antibiotic has been changed to intravenous cefepime 2 g every 8 hourly as per recommendation from the ID CT of the abdomen pelvis did not show any abscess and or any other significant lesions Clinically much better and he is back to his baseline No more signs and/or symptoms of infection and the patient remains afebrile Bacteremia with recurrence of fever of more than 38 C 1 out of 2 blood cultures are growing staph species, gram-negative bacilli and Pseudomonas aeruginosa-staphylococcal PCR detected positive, methicillin resistance detected and Staph epidermidis PCR detected And other 1 out of 2 blood cultures growing Pseudomonas aeruginosa Repeat blood cultures reports taken on 11/28/2022 have been pending Vancomycin was added from 11/28/2022 on top of intravenous Zosyn Appreciate ID input and recommendation-discontinue vancomycin and Zosyn and start intravenous cefepime no oral substitute for Pseudomonas aeruginosa Echo of the heart showed normal LV chamber size and wall thickness, moderately reduced LV systolic function with EF of 30 to 35%, large sized apical anteroseptal and anterior wall motion abnormality with akinesis of the segments, there is moderate sized apical scar without any thrombus visualized, grade 1 diastolic dysfunction, aortic valve sclerosis moderate without significant stenosis and no valvular lesions consistent with endocarditis visualized within the scope of this examination. Repeat blood cultures have been negative Cussed with the ID specialist in [place]-his IV antibiotic will be finished by today. For pyelonephritis antibiotic can be given anywhere from 4 to 14 days Chronic bedbound status Cannot come out of bed by himself Can feed himself Communicative-seems to be at his baseline He is paraplegic with left hemiplegia and can move right upper extremity reasonably Likely be discharged tomorrow No decubitus ulcer Has minimal redness Will apply barrier cream (2) Confusion: Plan: Acute metabolic and cephalopathy secondary to sepsis which is due to UTI As per the significant other he usually communicates well Confusion seems to be over He is back to his baseline Likely discharge in a day or 2 (3) Acute UTI: Plan: Urine examination shows possible UTI Uses a condom catheter at home Urine has been sent for culture-has been growing 3 types of organisms Blood culture grew gram-negative bacilli seems to be Pseudomonas Urine culture is growing 3 different organisms (4) HFrEF (heart failure with reduced ejection fraction): Plan: History of [place] in the past with reduced EF of 34% as of echo in 2021 Uses Lasix as an outpatient which is on hold now No acute cardiac symptoms and no fluid overload No signs and or symptoms of fluid overload We will hold Lasix for now Will have usual dose of Lasix on discharge (5) History of CVA with residual deficit: Plan: Has had a stroke in the past in 2004 with left-sided weakness Has been in bedbound status for a long time (6) Seizure disorder: Plan: Seizure disorder on medication We will continue current medicine (7) GERD (gastroesophageal reflux disease): Plan: Continue PPI (8) Ischemic cardiomyopathy: Plan: CAD with ischemic cardiomyopathy EF of 34% Has cardiac defibrillator in situ 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 Admission and Anticipated Discharge Date Admission Date: November 25, 2022 Subjective 11/26/2022 The patient was seen and examined in ICU with telemetry status He has been feeling much better today and has been communicating Denies any symptoms No fever and or chills but he still has tachycardia 11/27/2022 The patient was seen and examined in ICU with telemetry status He is back to his baseline and has been communicating reasonably Denies any significant symptoms Denies any more fever and or chills 11/28/2022 The patient was seen and examined in telemetry unit He has been feeling better and seems to be at his baseline Has had fever early in the morning of more than 38 C He denied any new symptoms and has been eating and drinking reasonably 11/29/2022 The patient was seen and examined in telemetry unit He has been back to his baseline Denies any significant symptoms and has been eating and drinking reasonably 11/30/2022 The patient was seen and examined in telemetry unit He has been feeling much better and denies any significant symptoms No fever and or chills and he is back to his baseline 12/01/2022 The patient was seen and examined in telemetry unit He has been feeling much better Denies any symptoms Review of Systems Review of Systems: All systems reviewed and are unremarkable except as noted below Respiratory: No acute respiratory distress Physical Exam Physical Exam: Lying in bed comfortably Constitutional: well developed, well nourished, + ill appearing and average body habitus Eyes: PERRL, conjunctivae normal, anicteric sclerae ENMT: external ear and nose normal, oropharynx normal Neck: trachea midline, no thyromegaly Respiratory: no respiratory distress Auscultation: + diminished lung sounds and + crackles (Minimal crackles at the bases) Cardiovascular: Rate/Rhythm: regular rate, regular rhythm, + tachycardic and + irregularly irregular Heart Sounds: normal S1, normal S2 and + murmur Extremities: no edema Gastrointestinal (Abdomen): Inspection/Auscultation: normal bowel sounds; abdomen not distended Percussion/Palpation: abdomen soft; abdomen nontender Musculoskeletal: No acute arthritis involving any of the joint Neurologic: Alert and awake. Minimally communicative. Moving right upper extremity regularly. Lymphatic: no cervical or axillary lymphadenopathy Results & Data Results & Data Vital Signs (Past 12 Hours) Vital Signs Temp Pulse Pulse Resp BP BP Pulse Ox 12/01/22 11:09 36.6 C 63 16 116/67 97 12/01/22 08:30 70 110/66 12/01/22 08:40 70 12/01/22 08:07 36.7 C 66 16 119/63 98 12/01/22 07:00 63 12/01/22 04:03 36.4 C L 67 17 130/70 98 O2 Del Method 12/01/22 11:09 Room Air 12/01/22 08:30 12/01/22 08:40 12/01/22 08:07 Room Air 12/01/22 07:00 12/01/22 04:03 Room Air Medications Administered Current Inpatient Medications Acetaminophen (Acetaminophen 500 Mg Tab) 1,000 mg PO Q8H PRN PRN Reason: Fever Stop: 12/28/22 08:21 Last Admin: 11/30/22 19:50 Dose: 1,000 mg Apixaban (Apixaban 5 Mg Tablet) 5 mg PO BID [facility] Stop: 12/25/22 20:59 Last Admin: 12/01/22 08:38 Dose: 5 mg Aspirin (Aspirin 81 Mg Ectab) 81 mg PO MoWeFr [facility] Stop: 12/26/22 08:59 Last Admin: 12/01/22 08:40 Dose: 81 mg Digoxin (Digoxin 0.125 Mg Tab) [facility]: 12/26/22 08:59 Last Admin: 12/01/22 08:40 Dose: 0.125 mg Divalproex Sodium (Divalproex Extended Release 500 Mg Tab) 1,000 mg PO [facility] Stop: 12/25/22 20:59 Last Admin: 11/30/22 19:51 Dose: 1,000 mg Divalproex Sodium (Divalproex Extended Release 250 Mg Tabcr) 250 mg PO [facility] Stop: 12/25/22 20:59 Last Admin: 11/30/22 19:52 Dose: 250 mg Fluoxetine HCl (Fluoxetine Hcl 20 Mg Cap) 40 mg PO [facility] Stop: 12/26/22 08:59 Last Admin: 12/01/22 08:43 Dose: 40 mg Promethazine HCl 12.5 mg/ (Sodium Chloride) 50.5 mls @ 202 mls/hr IV Q6H PRN PRN Reason: Nausea And Vomiting Stop: 12/26/22 03:09 Last Infusion: 11/27/22 01:43 Dose: Infused Cefepime HCl 2,000 mg/ Syringe 20 mls @ 5 mls/min IV Q8H [facility]; Protocol Stop: 12/12/22 14:59 Last Admin: 12/01/22 06:03 Dose: 5 mls/min Multivitamins (Multivitamin Tab) [facility] Stop: 12/26/22 08:59 Last Admin: 12/01/22 08:44 Dose: 1 tab Pantoprazole Sodium (Pantoprazole 40 Mg Tab) 40 mg PO DAILY [facility] Stop: 12/26/22 08:59 Last Admin: 12/01/22 08:44 Dose: 40 mg Rosuvastatin Calcium (Rosuvastatin Calcium 20 Mg Tab) [facility] Stop: 12/26/22 08:59 Last Admin: 12/01/22 08:44 Dose: 40 mg (7) GERD (gastroesophageal reflux disease) Esophagitis presence: without esophagitis Qualified Code(s): K21.9 - Gastro- esophageal reflux disease without esophagitis
[2022-12-01] MEDS: DIVALPROEX EXTENDED RELEASE 500 MG TAB PO SCH (20:38)
[2022-12-01] MEDS: DIVALPROEX EXTENDED RELEASE 250 MG TABCR PO SCH (20:38)
[2022-12-02] MEDS: CEFEPIME 2,000 MG in SYRINGE 0 ML IV SCH ×2 (06:25→14:54)
[2022-12-02] MEDS: FLUoxetine HCL 20 MG CAP PO SCH (08:47)
[2022-12-02] MEDS: ROSUVASTATIN CALCIUM 20 MG TAB PO SCH (08:47)
[2022-12-02] MEDS: DIGOXIN 0.125 MG TAB PO SCH (08:47)
[2022-12-02] MEDS: APIXABAN 5 MG TABLET PO SCH ×2 (08:47→20:37)
[2022-12-02] MEDS: PANTOprazole 40 MG TAB PO SCH (08:47)
[2022-12-02] MEDS: MULTIVITAMIN TAB PO SCH (08:47)
--- NOTE | 2022-12-02 12:33 | Hospitalist Progress Note ---
Date of Service December 02, 2022 Assessment & Plan (1) Sepsis: Plan: Presented with sepsis with fever tachycardia and increased white cell count Secondary to complicated UTI-uses a condom catheter for convenience and the patient is bedbound UTI could be secondary to use of condom catheter Started with intravenous Zosyn and vancomycin Intravenous fluid administration Lactate will be checked again-lactate has been improving 1 out of 2 blood cultures is growing gram-positive cocci but bio fire is negative Urine culture is growing multiple organisms Clinically better with decreasing white count and no more fever and or chills but remains tachycardic MRSA screen has been negative and vancomycin will be discontinued We will continue current medications Blood culture is growing gram-negative bacilli most likely Pseudomonas-awaiting further identification Clinically much better with improvement of white cell count and symptoms Antibiotic has been changed to intravenous cefepime 2 g every 8 hourly as per recommendation from the ID CT of the abdomen pelvis did not show any abscess and or any other significant lesions Clinically much better and he is back to his baseline Noted to have a high temperature of 38.6 C today And needs to be observed for another 24 hours before discharging out of the hospital Bacteremia with recurrence of fever of more than 38 C 1 out of 2 blood cultures are growing staph species, gram-negative bacilli and Pseudomonas aeruginosa-staphylococcal PCR detected positive, methicillin resistance detected and Staph epidermidis PCR detected And other 1 out of 2 blood cultures growing Pseudomonas aeruginosa Repeat blood cultures reports taken on 11/28/2022 have been pending Vancomycin was added from 11/28/2022 on top of intravenous Zosyn Appreciate ID input and recommendation-discontinue vancomycin and Zosyn and start intravenous cefepime no oral substitute for Pseudomonas aeruginosa Echo of the heart showed normal LV chamber size and wall thickness, moderately reduced LV systolic function with EF of 30 to 35%, large sized apical anteroseptal and anterior wall motion abnormality with akinesis of the segments, there is moderate sized apical scar without any thrombus visualized, grade 1 diastolic dysfunction, aortic valve sclerosis moderate without significant stenosis and no valvular lesions consistent with endocarditis visualized within the scope of this examination. Repeat blood cultures have been negative Cussed with the ID specialist in [place]-his IV antibiotic will be finished by today. For pyelonephritis antibiotic can be given anywhere from 4 to 14 days We will continue current antibiotic and he will need to stay another night to make sure he does not develop any more fever or chills Chronic bedbound status Cannot come out of bed by himself Can feed himself Communicative-seems to be at his baseline He is paraplegic with left hemiplegia and can move right upper extremity reasonably Will not be discharged today No decubitus ulcer Has minimal redness Will apply barrier cream (2) Confusion: Plan: Acute metabolic and cephalopathy secondary to sepsis which is due to UTI As per the significant other he usually communicates well Confusion seems to be over He is back to his baseline (3) Acute UTI: Plan: Urine examination shows possible UTI Uses a condom catheter at home Urine has been sent for culture-has been growing 3 types of organisms Blood culture grew gram-negative bacilli seems to be Pseudomonas Urine culture is growing 3 different organisms (4) HFrEF (heart failure with reduced ejection fraction): Plan: History of PR in the past with reduced EF of 34% as of echo in 2021 Uses Lasix as an outpatient which is on hold now No acute cardiac symptoms and no fluid overload No signs and or symptoms of fluid overload We will hold Lasix for now Will have usual dose of Lasix on discharge (5) History of CVA with residual deficit: Plan: Has had a stroke in the past in 2004 with left-sided weakness Has been in bedbound status for a long time (6) Seizure disorder: Plan: Seizure disorder on medication We will continue current medicine (7) GERD (gastroesophageal reflux disease): Plan: Continue PPI (8) Ischemic cardiomyopathy: Plan: CAD with ischemic cardiomyopathy EF of 34% Has cardiac defibrillator in situ 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 Admission and Anticipated Discharge Date Admission Date: November 25, 2022 Subjective 11/26/2022 The patient was seen and examined in ICU with telemetry status He has been feeling much better today and has been communicating Denies any symptoms No fever and or chills but he still has tachycardia 11/27/2022 The patient was seen and examined in ICU with telemetry status He is back to his baseline and has been communicating reasonably Denies any significant symptoms Denies any more fever and or chills 11/28/2022 The patient was seen and examined in telemetry unit He has been feeling better and seems to be at his baseline Has had fever early in the morning of more than 38 C He denied any new symptoms and has been eating and drinking reasonably 11/29/2022 The patient was seen and examined in telemetry unit He has been back to his baseline Denies any significant symptoms and has been eating and drinking reasonably 11/30/2022 The patient was seen and examined in telemetry unit He has been feeling much better and denies any significant symptoms No fever and or chills and he is back to his baseline 12/01/2022 The patient was seen and examined in telemetry unit He has been feeling much better Denies any symptoms 12/02/2022 The patient was seen and examined in telemetry unit He has been stable and ready to be discharged He spiked fever again today at 38.6 C-he will not be going home today Review of Systems Review of Systems: All systems reviewed and are unremarkable except as noted below Respiratory: No acute respiratory distress Physical Exam Physical Exam: Lying in bed comfortably Constitutional: well developed, well nourished, + ill appearing and average body habitus Eyes: PERRL, conjunctivae normal, anicteric sclerae ENMT: external ear and nose normal, oropharynx normal Neck: trachea midline, no thyromegaly Respiratory: no respiratory distress Auscultation: + crackles (Minimal crackles at the bases) Cardiovascular: Rate/Rhythm: regular rate, regular rhythm, + tachycardic and + irregularly irregular Heart Sounds: normal S1, normal S2 and + murmur Extremities: no edema Gastrointestinal (Abdomen): Inspection/Auscultation: normal bowel sounds; abdomen not distended Percussion/Palpation: abdomen soft; abdomen nontender Musculoskeletal: No acute arthritis involving any joint Neurologic: Alert and awake. Moves right upper extremity. Minimal or no movement involving the other extremities Lymphatic: no cervical or axillary lymphadenopathy Results & Data Results & Data Vital Signs (Past 12 Hours) Vital Signs Temp Pulse Pulse Resp BP Pulse Ox O2 Del Method 12/02/22 11:40 38.6 C H 79 18 83/63 L 98 Room Air 12/02/22 08:47 85 12/02/22 08:00 37.1 C 75 16 107/59 L 99 Room Air 12/02/22 03:36 36.7 C 75 17 110/71 98 Room Air Medications Administered Current Inpatient Medications Acetaminophen (Acetaminophen 500 Mg Tab) 1,000 mg PO Q8H PRN PRN Reason: Fever Stop: 12/28/22 08:21 Last Admin: 11/30/22 19:50 Dose: 1,000 mg Apixaban (Apixaban 5 Mg Tablet) 5 mg PO BID [facility] Stop: 12/25/22 20:59 Last Admin: 12/02/22 08:47 Dose: 5 mg Aspirin (Aspirin 81 Mg Ectab) 81 mg PO MoWeFr [facility] Stop: 12/26/22 08:59 Last Admin: 12/01/22 08:40 Dose: 81 mg Digoxin (Digoxin 0.125 Mg Tab) [facility] Stop: 12/26/22 08:59 Last Admin: 12/02/22 08:47 Dose: 0.125 mg Divalproex Sodium (Divalproex Extended Release 500 Mg Tab) 1,000 mg PO [facility] Stop: 12/25/22 20:59 Last Admin: 12/01/22 20:38 Dose: 1,000 mg Divalproex Sodium (Divalproex Extended Release 250 Mg Tabcr) 250 mg PO [facility] Stop: 12/25/22 20:59 Last Admin: 12/01/22 20:38 Dose: 250 mg Fluoxetine HCl (Fluoxetine Hcl 20 Mg Cap) 40 mg [facility] Stop: 12/26/22 08:59 Last Admin: 12/02/22 08:47 Dose: 40 mg Promethazine HCl 12.5 mg/ (Sodium Chloride) 50.5 mls @ 202 mls/hr IV Q6H PRN PRN Reason: Nausea And Vomiting Stop: 12/26/22 03:09 Last Infusion: 11/27/22 01:43 Dose: Infused Cefepime HCl 2,000 mg/ Syringe 20 mls @ 5 mls/min IV Q8H [facility]; Protocol Stop: 12/12/22 14:59 Last Admin: 12/02/22 06:25 Dose: 5 mls/min Multivitamins (Multivitamin Tab) 1 tab [facility] Stop: 12/26/22 08:59 Last Admin: 12/02/22 08:47 Dose: 1 tab Pantoprazole Sodium (Pantoprazole 40 Mg Tab) 40 mg PO DAILY [facility] Stop: 12/26/22 08:59 Last Admin: 12/02/22 08:47 Dose: 40 mg Rosuvastatin Calcium (Rosuvastatin Calcium 20 Mg Tab) 40 mg [facility] Stop: 12/26/22 08:59 Last Admin: 12/02/22 08:47 Dose: 40 mg (7) GERD (gastroesophageal reflux disease) Esophagitis presence: without esophagitis Qualified Code(s): K21.9 - Gastro- esophageal reflux disease without esophagitis
[2022-12-02] MEDS: DIVALPROEX EXTENDED RELEASE 250 MG TABCR PO SCH (20:37)
[2022-12-02] MEDS: DIVALPROEX EXTENDED RELEASE 500 MG TAB PO SCH (20:37)
[2022-12-03] MEDS: CEFEPIME 2,000 MG in SYRINGE 0 ML IV SCH ×4 (00:11→23:16)
[2022-12-03 07:31] LABS: Basophils # (auto) 0.05 K/uL (0-0.2); Basophils % (auto) 0.6 %; Eosinophils # (auto) 0.22 K/uL (0-0.50); Eosinophils % (auto) 2.5 %; Hemoglobin 9.2 g/dl (14.0-18.0); Immature Granulocytes # (auto) 0.37 K/uL (0.01-0.20); Immature Granulocytes % (auto) 4.3 %; Lymphocytes # (auto) 2.97 K/uL (1.2-3.4); Lymphocytes % (auto) 34.3 %; Mean Corpuscular Hemoglobin 31.4 pg (25.0-34.0); Mean Corpuscular Hgb Conc 32.9 g/dL (32.0-36.0); Mean Corpuscular Volume 95.6 fL (80.0-100.0); Mean Platelet Volume 10.4 fL (9.4-12.4); Monocytes % (auto) 18.5 %; Neutrophils # (auto) 3.44 K/uL (1.40-6.50); Neutrophils % (auto) 39.8 %; Platelet Count 342 K/uL (130-400); RDW Coefficient of Variation 16.7 % (11.5-14.5); RDW Standard Deviation 57.6 fL (36.4-46.3); Red Blood Count 2.93 M/uL (4.70-6.10); White Blood Count 8.65 K/ul (4.8-10.8)
[2022-12-03 07:59] LABS: Calcium 9.2 mg/dl (8.6-10.3); Creatinine Clr Calc Pharmacy 88.4 ml/min; Est GFR (African American) 114.4 ml/min; Est GFR (Non-African American) 98.7 ml/min; Potassium 3.7 mmol/L (3.5-5.1)
[2022-12-03] MEDS: DIGOXIN 0.125 MG TAB PO SCH (08:15)
[2022-12-03] MEDS: PANTOprazole 40 MG TAB PO SCH (08:16)
[2022-12-03] MEDS: FLUoxetine HCL 20 MG CAP PO SCH (08:16)
[2022-12-03] MEDS: ROSUVASTATIN CALCIUM 20 MG TAB PO SCH (08:16)
[2022-12-03] MEDS: APIXABAN 5 MG TABLET PO SCH ×2 (08:16→21:10)
[2022-12-03] MEDS: MULTIVITAMIN TAB PO SCH (08:17)
[2022-12-03] MEDS: ASPIRIN 81 MG ECTAB PO SCH (08:17)
--- NOTE | 2022-12-03 17:29 | Hospitalist Progress Note ---
Date of Service December 03, 2022 Assessment & Plan (1) Sepsis: Plan: Presented with sepsis with fever tachycardia and increased white cell count Secondary to complicated UTI-uses a condom catheter for convenience and the patient is bedbound Pseudomonas bacteremia - Blood clx 11/25 positive for Pseudomonas, blood clx 11/28 negative. Communicated with ID Dr Mcmillan today regarding duration of antibiotics- 7 days of IV antibiotic would suffice. No po option for him. Echo with no vegetations. Others were contaminants in blood clx. - CT of the abdomen pelvis did not show any abscess and or any other significant lesions - Echo of the heart showed normal LV chamber size and wall thickness, moderately reduced LV systolic function with EF of 30 to 35%, large sized apical anteroseptal and anterior wall motion abnormality with akinesis of the segments, there is moderate sized apical scar without any thrombus visualized, grade 1 diastolic dysfunction, aortic valve sclerosis moderate without significant stenosis and no valvular lesions consistent with endocarditis visualized within the scope of this examination. Chronic bedbound status Cannot come out of bed by himself Can feed himself Communicative-seems to be at his baseline He is paraplegic with left hemiplegia and can move right upper extremity reasonably No decubitus ulcer Has minimal redness Contine barrier cream (2) Confusion: Plan: Seems to be at baseline now. Acute metabolic encephalopathy secondary to sepsis due to bacterem (3) HFrEF (heart failure with reduced ejection fraction): Plan: History of CT in the past with reduced EF of 34% as of echo in 2021 Uses Lasix as an outpatient which is on hold now No acute cardiac symptoms and no fluid overload No signs and or symptoms of fluid overload Continue to hold Lasix for now. Will have usual dose of Lasix on discharge (4) History of CVA with residual deficit: Plan: Has had a stroke in the past in 2004 with left-sided weakness Has been in bedbound status for a long time (5) Seizure disorder: Plan: on depakote (6) GERD (gastroesophageal reflux disease): Plan: Continue PPI (7) Ischemic cardiomyopathy: Plan: CAD with ischemic cardiomyopathy EF of 34% Has cardiac defibrillator in situ H/o intracardiac thrombus and is on Eliquis Need to restart his diuretics on discharge (8) Cardiac defibrillator in situ: Plan: As above Plan DVT prophylaxis- Continue Eliquis CODE STATUS- Full Disposition- Anticipate discharge tomorrow if remains afebrile and stable Admission and Anticipated Discharge Date Admission Date: November 25, 2022 Subjective Patient was seen and examined in telemetry unit. Denies any issues. No fever today. No nausea or vomiting. Review of Systems Review of Systems: All systems reviewed & are unremarkable except as noted in Subjective Physical Exam Physical Exam: General: Lying comfortably in bed, not in distress, on room air HEENT: [place], MMM Chest: Diminished breath sounds bilaterally CVS: Irregular rate and rhythm, normal heart sounds, no murmur Abdomen: Soft, non tender, not distended, normal bowel sounds Neuro: Awake, alert, minimally conversive, at baseline Extremities: No cyanosis, clubbing or edema Results & Data Results & Data Vital Signs (Past 12 Hours) Vital Signs Temp Pulse Pulse Resp BP Pulse Ox O2 Del Method 12/03/22 15:11 37.1 C 84 17 108/82 100 Room Air 12/03/22 08:00 79 12/03/22 08:00 Room Air 12/03/22 11:14 36.9 C 84 18 114/78 96 Room Air 12/03/22 08:15 75 12/03/22 07:37 36.9 C 80 19 112/74 98 Room Air Laboratory Results Short CBC 12/03/22 Range/Units 06:42 WBC 8.65 (4.8-10.8) K/ul Hgb 9.2 L (14.0-18.0) g/dl Hct 28.0 L (42.0-52.0) % Plt Count 342 (130-400) K/uL BMP 12/03/22 06:42 Sodium 138 Potassium 3.7 Chloride 104 Carbon Dioxide 30 BUN 6 Creatinine 0.67 Glucose 99 Calcium 9.2 Medications Administered Current Inpatient Medications Acetaminophen (Acetaminophen 500 Mg Tab) 1,000 mg PO Q8H PRN PRN Reason: Fever Stop: 12/28/22 08:21 Last Admin: 11/30/22 19:50 Dose: 1,000 mg Apixaban (Apixaban 5 Mg Tablet) 5 mg PO BID [facility] Stop: 12/25/22 20:59 Last Admin: 12/03/22 08:16 Dose: 5 mg Aspirin (Aspirin 81 Mg Ectab) 81 mg PO MoWeFr [facility] Stop: 12/26/22 08:59 Last Admin: 12/03/22 08:17 Dose: 81 mg Digoxin (Digoxin 0.125 Mg Tab) 0.125 mg PO [facility] Stop: 12/26/22 08:59 Last Admin: 12/03/22 08:15 Dose: 0.125 mg Divalproex Sodium (Divalproex Extended Release 500 Mg Tab) 1,000 mg PO [facility] Stop: 12/25/22 20:59 Last Admin: 12/02/22 20:37 Dose: 1,000 mg Divalproex Sodium (Divalproex Extended Release 250 Mg Tabcr) 250 mg PO [facility] Stop: 12/25/22 20:59 Last Admin: 12/02/22 20:37 Dose: 250 mg Docusate Sodium (Docusate Sodium 100 Mg Cap) 100 mg PO BID [facility] Stop: 01/02/23 20:59 Fluoxetine HCl (Fluoxetine Hcl 20 Mg Cap) 40 mg PO [facility] Stop: 12/26/22 08:59 Last Admin: 12/03/22 08:16 Dose: 40 mg Promethazine HCl 12.5 mg/ (Sodium Chloride) 50.5 mls @ 202 mls/hr IV Q6H PRN PRN Reason: Nausea And Vomiting Stop: 12/26/22 03:09 Last Infusion: 11/27/22 01:43 Dose: Infused Cefepime HCl 2,000 mg/ Syringe 20 mls @ 5 mls/min IV Q8H [facility]; Protocol Stop: 12/12/22 14:59 Last Admin: 12/03/22 15:24 Dose: 5 mls/min Multivitamins (Multivitamin Tab) 1 tab PO [facility] Stop: 12/26/22 08:59 Last Admin: 12/03/22 08:17 Dose: 1 tab Pantoprazole Sodium (Pantoprazole 40 Mg Tab) 40 mg PO DAILY [facility] Stop: 12/26/22 08:59 Last Admin: 12/03/22 08:16 Dose: 40 mg Polyethylene Glycol (Polyethylene (Miralax) 17 Gm Pack) 17 gm PO DAILY [facility] Stop: 01/02/23 15:44 Rosuvastatin Calcium (Rosuvastatin Calcium 20 Mg Tab) 40 mg PO [facility] Stop: 12/26/22 08:59 Last Admin: 12/03/22 08:16 Dose: 40 mg (6) GERD (gastroesophageal reflux disease) Esophagitis presence: without esophagitis Qualified Code(s): K21.9 - Gastro- esophageal reflux disease without esophagitis
[2022-12-03] MEDS: POLYETHYLENE (MIRALAX) 17 GM PACK PO SCH (21:02)
[2022-12-03] MEDS: DIVALPROEX EXTENDED RELEASE 500 MG TAB PO SCH (21:10)
[2022-12-03] MEDS: DIVALPROEX EXTENDED RELEASE 250 MG TABCR PO SCH (21:10)
[2022-12-03] MEDS: DOCUSATE SODIUM 100 MG CAP PO SCH (21:14)
[2022-12-04] MEDS: CEFEPIME 2,000 MG in SYRINGE 0 ML IV SCH (06:19)
[2022-12-04] MEDS: APIXABAN 5 MG TABLET PO SCH (08:40)
[2022-12-04] MEDS: DIGOXIN 0.125 MG TAB PO SCH (08:40)
[2022-12-04] MEDS: MULTIVITAMIN TAB PO SCH (08:41)
[2022-12-04] MEDS: PANTOprazole 40 MG TAB PO SCH (08:41)
[2022-12-04] MEDS: DOCUSATE SODIUM 100 MG CAP PO SCH (08:41)
[2022-12-04] MEDS: FLUoxetine HCL 20 MG CAP PO SCH (08:41)
[2022-12-04] MEDS: POLYETHYLENE (MIRALAX) 17 GM PACK PO SCH (08:42)
[2022-12-04] MEDS: ROSUVASTATIN CALCIUM 20 MG TAB PO SCH (08:42)
--- NOTE | 2022-12-04 15:47 | Discharge Summary ---
Date of Service December 04, 2022 Admission HPI Per Admitting Provider He is a 67-year-old male with significant past medical history of chronic systolic heart failure secondary to ischemic cardiomyopathy EF of 34% as of 2021 status post ICD, history of CAD/CVA/PVD, history of cardiac thrombus on Eliquis, hyperlipidemia seizure disorder, COPD, hypertension and past tobacco abuse apparently was noted to have fever of 103 F last evening at around 7:30 PM. History was taken from his ex-. he has had supper and he vomited after having supper and at that time he was noted to have a temperature of 103.4 F. He was not having any other symptoms at the time and the fever was reasonably controlled throughout the night by giving Tylenol on multiple times. He was noted to be less responsive at around 10 AM and at that time his fever was 101 F and made an appointment with the primary care physician at around 3 PM. She called the nurse and after discussing his current condition the nurse advised him to bring him to the emergency room for further evaluation. He has been less responsive since this morning and also has had some sweating and his urine has been smelling bad for the last few days and he uses a condom catheter for his urine outflow. He does not have any problem with his bowel habit and denies any cough, chest pain or palpitation, shortness of breath. He did not have any more vomiting since last night. He remained less responsive since this morning. In ER his UA was suggestive of infection and white count was elevated he was tachycardic but not febrile and he was admitted to medical telemetry unit for continuation of care. Admission Exam Per Admitting Provider Physical Exam: Lying in bed without any acute distress Constitutional: well developed, well nourished, + ill appearing and average body habitus Eyes: PERRL, conjunctivae normal, anicteric sclerae ENMT: external ear and nose normal, oropharynx normal Neck: trachea midline, no thyromegaly Respiratory: no respiratory distress Auscultation: + diminished lung sounds (Bilaterally due to less effort); no crackles Cardiovascular: Rate/Rhythm: + tachycardic and + irregularly irregular Heart Sounds: normal S1, normal S2 and + murmur Extremities: no edema Gastrointestinal (Abdomen): Inspection/Auscultation: normal bowel sounds; abdomen not distended Percussion/Palpation: abdomen soft; abdomen nontender Musculoskeletal: No acute arthritis involving any joint Neurologic: Alert and awake. Minimally communicative. Answers with only yes or no. Does not move any of the extremities on commands. Lymphatic: no cervical or axillary lymphadenopathy Principal Diagnosis Sepsis with pseudomonas bacteremia secondary to UTI, chronic bedbound status, confusion, seizure disorder Discharge Exam General: Sitting comfortably in bed, not in distress, on room air HEENT: [place], MMM Chest: Diminished but fair breath sounds bilaterally CVS: Irregular rate and rhythm, normal heart sounds, no murmur Abdomen: Soft, non tender, not distended, normal bowel sounds Neuro: Awake, alert, minimally conversive, at baseline Extremities: No cyanosis, clubbing or edema Discharge Data Allergies Allergy/AdvReac Type Severity Reaction Status Date / Time morphine Allergy Intermediate Itchiness Verified 07/04/22 00:47 naproxen Allergy Intermediate Hives Verified 07/04/22 00:47 Consultations 11/25/22 17:14 ED Decision to Admit Stat 11/28/22 08:52 Consult Infectious Diseases Routine Ordered Studies 11/25/22 14:00 CT head/brain wo con Stat 11/28/22 14:43 CT Abd and Pelvis [CT abd pelvis wo con] Routine Laboratory Results WBC 8.65 K/ul (4.8-10.8) 12/03/22 06:42 RBC 2.93 M/uL (4.70-6.10) L 12/03/22 06:42 Hgb 9.2 g/dl (14.0-18.0) L 12/03/22 06:42 Hct 28.0 % (42.0-52.0) L 12/03/22 06:42 MCV 95.6 fL (80.0-100.0) 12/03/22 06:42 MCH 31.4 pg (25.0-34.0) 12/03/22 06:42 MCHC 32.9 g/dL (32.0-36.0) 12/03/22 06:42 RDW Std Deviation 57.6 fL (36.4-46.3) H 12/03/22 06:42 RDW Coeff of Pam 16.7 % (11.5-14.5) H 12/03/22 06:42 Plt Count 342 K/uL (130-400) 12/03/22 06:42 MPV 10.4 fL (9.4-12.4) 12/03/22 06:42 Immature Gran % (Auto) 4.3 % 12/03/22 06:42 Neut % (Auto) 39.8 % 12/03/22 06:42 Lymph % (Auto) 34.3 % 12/03/22 06:42 [place] % (Auto) 18.5 % 12/03/22 06:42 Eos % (Auto) 2.5 % 12/03/22 06:42 Baso % (Auto) 0.6 % 12/03/22 06:42 Neut # (Auto) 3.44 K/uL (1.40-6.50) 12/03/22 06:42 Lymph # (Auto) 2.97 K/uL (1.2-3.4) 12/03/22 06:42 [place] # (Auto) 1.60 K/uL (0.11-0.59) H 12/03/22 06:42 Eos # (Auto) 0.22 K/uL (0-0.50) 12/03/22 06:42 Baso # (Auto) 0.05 K/uL (0-0.2) 12/03/22 06:42 Immature Gran # (Auto) 0.37 K/uL (0.01-0.20) H 12/03/22 06:42 Absolute Nucleated RBC Cancelled 11/25/22 14:26 Nucleated RBC % (auto) Cancelled 11/25/22 14:26 Neutrophils % (Manual) Cancelled 11/25/22 14:26 Band Neutrophils % Cancelled 11/25/22 14:26 Lymphocytes % (Manual) Cancelled 11/25/22 14:26 Prolymphocyte % Cancelled 11/25/22 14:26 Reactive Lymphs % (Man) Cancelled 11/25/22 14:26 Monocytes % (Manual) Cancelled 11/25/22 14:26 Eosinophils % (Manual) Cancelled 11/25/22 14:26 Basophils % (Manual) Cancelled 11/25/22 14:26 Metamyelocytes % (Man) Cancelled 11/25/22 14:26 Myelocytes % (Man) Cancelled 11/25/22 14:26 Promyelocytes % (Man) Cancelled 11/25/22 14:26 Blast Cells % (Manual) Cancelled 11/25/22 14:26 Plasma Cell % (Manual) Cancelled 11/25/22 14:26 Other Cells % Cancelled 11/25/22 14:26 Nucleated RBC % Cancelled 11/25/22 14:26 Neutrophils # (Manual) Cancelled 11/25/22 14:26 Band Neutrophils # Cancelled 11/25/22 14:26 Total Absolute Neuts Cancelled 11/25/22 14:26 Lymphocytes # (Manual) Cancelled 11/25/22 14:26 Prolymphocyte # Cancelled 11/25/22 14:26 Reactive Lymphs # Cancelled 11/25/22 14:26 Total Abs Lymphocytes Cancelled 11/25/22 14:26 Monocytes # (Manual) Cancelled 11/25/22 14:26 Eosinophils # (Manual) Cancelled 11/25/22 14:26 Basophils # (Manual) Cancelled 11/25/22 14:26 Metamyelocytes # (Man) Cancelled 11/25/22 14:26 Myelocytes # (Manual) Cancelled 11/25/22 14:26 Promyelocytes # (Man) Cancelled 11/25/22 14:26 Blast Cells # (Man) Cancelled 11/25/22 14:26 Plasma Cell # (Manual) Cancelled 11/25/22 14:26 Other Cells # Cancelled 11/25/22 14:26 Nucleated RBCs # (Man) Cancelled 11/25/22 14:26 Hypersegmented Neuts Cancelled 11/25/22 14:26 Hyposegmented Neuts Cancelled 11/25/22 14:26 Hypogranular Neuts Cancelled 11/25/22 14:26 Large Granular Lymphs Cancelled 11/25/22 14:26 # Lrg Granular Lymphs Cancelled 11/25/22 14:26 Hairy Cells Cancelled 11/25/22 14:26 Smudge Cells Cancelled 11/25/22 14:26 Toxic Granulation Cancelled 11/25/22 14:26 Toxic Vacuolation 1+ 11/26/22 05:36 Dohle Bodies Cancelled 11/25/22 14:26 Rosi Rods Cancelled 11/25/22 14:26 Platelet Estimate Decreased (Normal) L 11/26/22 05:36 Hypogranular Platelets Cancelled 11/25/22 14:26 Giant Platelets Cancelled 11/25/22 14:26 Platelet Satelliting Cancelled 11/25/22 14:26 RBC Morphology Cancelled 11/25/22 14:26 Polychromasia 1+ 11/27/22 07:01 Hypochromasia Cancelled 11/25/22 14:26 Poikilocytosis Cancelled 11/25/22 14:26 Basophilic Stippling Cancelled 11/25/22 14:26 Anisocytosis Cancelled 11/25/22 14:26 Microcytosis Cancelled 11/25/22 14:26 Macrocytosis Cancelled 11/25/22 14:26 Spherocytes Cancelled 11/25/22 14:26 Pappenheimer Bodies Cancelled 11/25/22 14:26 Sickle Cells Cancelled 11/25/22 14:26 Target Cells Cancelled 11/25/22 14:26 Tear Drop Cells Cancelled 11/25/22 14:26 Ovalocytes Cancelled 11/25/22 14:26 Stomatocytes Cancelled 11/25/22 14:26 [place] Bodies Cancelled 11/25/22 14:26 Echinocytes 1+ 11/26/22 05:36 Acanthocytes (Spur) Cancelled 11/25/22 14:26 Rouleaux Cancelled 11/25/22 14:26 RBC Agglutinates Cancelled 11/25/22 14:26 Schistocytes Cancelled 11/25/22 14:26 Sezary Cell Cancelled 11/25/22 14:26 PT 13.3 Seconds (9.0-12.0) H 11/25/22 16:06 INR 1.3 (0.9-1.1) H 11/25/22 16:06 APTT 41.8 Seconds (21.0-31.0) H 11/25/22 23:24 PTT Ratio 1.5 11/25/22 23:24 VBG pH 7.42 (7.36-7.41) H 11/25/22 14:38 VBG pCO2 35 mmHg (38-50) L 11/25/22 14:38 VBG pO2 44 mmHg 11/25/22 14:38 VBG HCO3 23 mmol/L 11/25/22 14:38 VBG O2 Saturation 73.2 % 11/25/22 14:38 VBG Base Excess -1.3 mEq/L 11/25/22 14:38 Sodium 138 mmol/L (136-145) 12/03/22 06:42 Potassium 3.7 mmol/L (3.5-5.1) 12/03/22 06:42 Chloride 104 mmol/L (98-107) 12/03/22 06:42 Carbon Dioxide 30 mmol/L (21-32) 12/03/22 06:42 Anion Gap 4 (3-11) 12/03/22 06:42 BUN 6 mg/dl (6-23) 12/03/22 06:42 Creatinine 0.67 mg/dl (0.6-1.4) 12/03/22 06:42 Est Cr Clr Drug Dosing 88.4 ml/min 12/03/22 06:42 Est GFR ( Amer) 114.4 ml/min 12/03/22 06:42 Est GFR (Non-Af Amer) 98.7 ml/min 12/03/22 06:42 BUN/Creatinine Ratio 9.0 (10-20) L 12/03/22 06:42 Glucose 99 mg/dl (70-99(Fasting)) 12/03/22 06:42 Lactate 2.3 mmol/L (0.4-2.0) H* 11/25/22 21:01 Calcium 9.2 mg/dl (8.6-10.3) 12/03/22 06:42 Phosphorus 2.6 mg/dl (2.5-4.9) D 11/29/22 08:03 Magnesium 1.9 mg/dl (1.7-2.4) 11/29/22 08:03 Total Bilirubin 0.6 mg/dl (0.2-1.0) 11/30/22 06:58 AST 29 U/L (13-39) 11/30/22 06:58 ALT 29 U/L (7-52) 11/30/22 06:58 Alkaline Phosphatase 62 U/L (34-104) 11/30/22 06:58 Ammonia 28.0 umol/L (18-72) 11/25/22 23:31 Troponin I High Sens 26.2 pg/ml (0-20) H 11/25/22 14:41 Total Protein 6.3 gm/dl (6.0-8.3) 11/30/22 06:58 Albumin 2.9 gm/dl (3.4-5.0) L 11/30/22 06:58 Globulin 3.4 gm/dl (2.5-4.0) 11/30/22 06:58 Albumin/Globulin Ratio 0.9 (0.9-2) 11/30/22 06:58 Procalcitonin 0.34 ng/ml (0-0.5) 11/25/22 16:06 TSH Cancelled 11/25/22 14:26 Urine Color Dark Yellow 11/25/22 16:53 Urine Appearance Turbid (Clear) A 11/25/22 16:53 Urine pH 5.5 (4.5-7.5) 11/25/22 16:53 Ur Specific [place] 1.031 (1.000-1.030) H 11/25/22 16:53 Urine Protein 1+ (Negative) H 11/25/22 16:53 Urine Glucose (UA) Negative (Negative) 11/25/22 16:53 Urine Ketones Trace (Negative) H 11/25/22 16:53 Urine Blood 3+ (Negative) H 11/25/22 16:53 Urine Nitrite Negative (Negative) 11/25/22 16:53 Urine Bilirubin Negative (Negative) 11/25/22 16:53 Urine Urobilinogen Negative (Negative) 11/25/22 16:53 Ur Leukocyte Esterase 2+ (Negative) H 11/25/22 16:53 Urine WBC (Auto) >30 /hpf (0-5) H 11/25/22 16:53 Urine RBC (Auto) 0-4 /hpf (0-4) 11/25/22 16:53 U Hyaline Cast (Auto) 1-5 /lpf (0-5) 11/25/22 16:53 U Epithel Cells (Auto) 10-20 /lpf (0-5) H 11/25/22 16:53 Urine Bacteria (Auto) 3+ (Negative) H 11/25/22 16:53 Urine Yeast Not Reportable 11/25/22 16:53 Nasal Screen MRSA (PCR) Negative (Negative) 11/25/22 23:15 Digoxin 0.8 ng/ml (0.8-2.0) 11/25/22 23:24 Valproic Acid 97 mcg/ml (50-100) 11/26/22 05:36 SARS-CoV-2 (PCR) NEGATIVE (Negative) 11/25/22 Unknown Influenza Type A (PCR) Negative (Neg) 11/25/22 Unknown Influenza Type B (PCR) Negative (Neg) 11/25/22 Unknown RSV (RT-PCR) Negative (Neg) 11/25/22 Unknown Staphylococcus sp PCR DETECTED (NotDetected) A 11/25/22 14:26 mecA/C-Methicil Resis Gene DETECTED (NotDetected) A 11/25/22 14:26 Staph epidermidis (PCR) DETECTED (NotDetected) A 11/25/22 14:26 P. aeruginosa (PCR) DETECTED (NotDetected) A 11/25/22 14:38 blaIMP Car res Gene PCR Not Detected (NotDetected) 11/25/22 14:38 KPC-Carbap Res Gene PCR Not Detected (NotDetected) 11/25/22 14:38 blaNDM Car Res Gene PCR Not Detected (NotDetected) 11/25/22 14:38 blaVIM Car Res Gene PCR Not Detected (NotDetected) 11/25/22 14:38 CTX-M Gene Resistance (PCR) Not Detected (NotDetected) 11/25/22 14:38 Bld Cult ID Panel PCR See PCR Comment (NotDetected) 11/25/22 14:38 Bld Cult ID PCR Com Discrepant 11/25/22 14:26 Blood Parasites ID Cancelled 11/25/22 14:26 Impressions Chest X-Ray 11/25/22 14:00 SINGLE VIEW CHEST CLINICAL HISTORY: Change in mental status. Fever. FINDINGS: An AP, supine, upright chest radiograph is compared to study dated 07/04/2022 and correlated with chest CT dated 11/02/2021. A single-lead cardiac AICD is unchanged in position and partially obscures the left chest. The heart is enlarged noting atherosclerotic calcification of the thoracic aorta. The pulmonary vasculature is noncongested. Chronic interstitial thickening similar to previous. There are low lung volumes with bibasilar atelectasis. No airspace consolidation or large pleural effusion is identified. No pneumothorax is seen. The skeletal structures are osteopenic. There are healed right-sided rib fractures. Advanced arthritic change is noted in the left shoulder. IMPRESSION: 1. Cardiomegaly and AICD without radiographic evidence of congestive failure. 2. Low lung volumes with no airspace consolidation or large pleural effusion. ACT 112: Negative or not required by law. Electronically signed by: Thang Thomas M.D. 11/25/2022 2:[address] 11/25/22 14:00 CT head/brain wo con CLINICAL HISTORY: 67 years-old Male with confusion. Acutely altered mental status TECHNIQUE: Multiple axial CT images of the head were obtained without contrast. A dose lowering technique was utilized adhering to the principles of ALARA. CT DOSE: 614.27 mGy.cm COMPARISON: 01/23/2019 FINDINGS: No acute intracranial hemorrhage, midline shift, intracranial mass, hydrocephalus, territorial ischemia or abnormal extra-axial collection. Chronic large right MCA infarct with encephalomalacia and ex vacuo ventriculomegaly of the right lateral ventricle. Involutional changes with chronic microvascular ischemic disease. Cerebral vascular calcifications. The calvarium is intact. The paranasal sinuses, mastoid air cells, and middle ear cavities are clear. IMPRESSION: 1. No acute intracranial abnormality. 2. Chronic right MCA infarct. ACT 112: Negative or not required by law. The above report was generated using voice recognition software. It may contain grammatical, syntax or spelling errors. Electronically signed by: Justin Conde M.D. 11/25/2022 3:04 PM Abdomen/Pelvis CT 11/28/22 14:43 CT abd pelvis wo con CLINICAL HISTORY: R/O abscess TECHNIQUE: Helical axial images of the abdomen and pelvis were obtained. Automated dose lowering techniques and/or adjustment according to patient size were utilized for this exam. This exam was performed without intravenous contrast. CT DOSE: 544.58 mGy.cm COMPARISON: Comparison is made to CT abdomen pelvis 07/04/2022 FINDINGS: Lower chest: There is trace bilateral pleural effusion, right greater than left, with associated atelectasis. Partial visualization of pacemaker defibrillator. Liver: Unremarkable. No focal lesions are seen. Gallbladder and biliary tree: Cholelithiasis is seen without evidence of cholecystitis. No intra- or extrahepatic biliary ductal dilation. Pancreas: Unremarkable, no focal lesions. Spleen: Unremarkable. Adrenals: Unremarkable. Kidneys and ureters: Nonobstructive stone is noted in the right renal pelvis. Bladder: Diffuse homogeneous wall thickening is seen. Reproductive organs: Unremarkable. Bowel: Unremarkable. Lymph nodes Retroperitoneal: Unremarkable. Pelvic: Unremarkable. Mesenteric: Unremarkable. Peritoneum: Normal. Vessels: Atherosclerotic calcifications are seen. Abdominal wall: Mild soft tissue edema is seen. Bones: Left femoral screws are seen. Degenerative changes are seen in the spine. Avascular necrosis of the femoral heads incidentally noted. IMPRESSION: 1. No acute abnormalities in particular no evidence of abscess. 2. Bladder wall thickening which can be seen in cystitis. Of note, noncontrast CT is not a sensitive modality for pyelonephritis. 3. Nonobstructive stone in the right renal pelvis. 4. Cholelithiasis without cholecystitis. 5. Trace bilateral pleural effusions with underlying atelectasis. Cardiomegaly. ACT 112: Negative or not required by law. Electronically signed by: Toni Chapman M.D. 11/28/2022 5:41 PM Hospital Course (1) Sepsis: Sepsis with Pseudomonas bacteremia secondary to UTI Presented with sepsis with fever tachycardia and increased white cell count Secondary to complicated UTI-uses a condom catheter for convenience and the patient is bedbound Blood clx 11/25 positive for Pseudomonas, blood clx 11/28 negative. Commun[address] with ID Dr Mcmillan regarding duration of antibiotics- 7 days of IV antibiotic would suffice. No po option for him. Echo with no vegetations. Others were contaminants in blood clx. CT of the abdomen pelvis did not show any abscess and or any other significant lesions Echo of the heart showed normal LV chamber size and wall thickness, moderately reduced LV systolic function with EF of 30 to 35%, large sized apical anteroseptal and anterior wall motion abnormality with akinesis of the segments, there is moderate sized apical scar without any thrombus visualized, grade 1 diastolic dysfunction, aortic valve sclerosis moderate without significant stenosis and no valvular lesions consistent with endocarditis visualized within the scope of this examination. Completed IV antibiotics in-house. No more fever or leukocytosis. Labs stable. Chronic bedbound status Cannot come out of bed by himself Can feed himself Communicative-seems to be at his baseline He is paraplegic with left hemiplegia and can move right upper extremity reasonably No decubitus ulcer Has minimal redness Continue barrier cream (2) Confusion: Seems to be at baseline now. Acute metabolic encephalopathy secondary to sepsis due to bacteremia and UTI (3) HFrEF (heart failure with reduced ejection fraction): History of RI in the past with reduced EF of 34% as of echo in 2021 Volume status stable. Continue home Lasix (4) History of CVA with residual deficit: Has had a stroke in the past in 2004 with left-sided weakness Has been in bedbound status for a long time (5) Seizure disorder: on depakote (6) GERD (gastroesophageal reflux disease): Continue PPI (7) Ischemic cardiomyopathy: CAD with ischemic cardiomyopathy EF of 34% Has cardiac defibrillator in situ H/o intracardiac thrombus and is on Eliquis (8) Cardiac defibrillator in situ: As above Total Time Total Time Spent Total Time Spent (In Minutes): 45 Discharge Plan Discharge Items Patient Disposition: Home - Home Health Services Reason For Visit: SEPSIS, UTI, CHANGE IN MENTAL STATUS Discharge Diagnosis: Sepsis with pseudomonas bacteremia and UTI, chronic bedbound status, chronic diastolic CHF, seizure disorder Activity: Resume your previous activity Non-emergency contact: Primary Care Provider Call non-emergency contact if: you have any medication questions, your symptoms worsen and you have a fever Follow-up/Referrals: Richardson Sterling MD [Primary Care Provider] - 12/08/22 3:00 pm (Date & Time 12/08/2022 3:00 PM Provider Richardson Sterling MD Department Family Medicine [facility] ) Diet: Regular Fluids: 1500ml (6 cups) Diet Texture: Easy to Chew Addtl Attending Provider Instructions: Continue your home medications as prescribed Follow up with your family doctor Pending Studies at Discharge: No Stand-Alone Forms: My [facility] [employer], Smoking Cessation Medications and DC Order Prescriptions: New docusate sodium 100 mg Capsule 100 mg PO BID Qty: 30 0RF Continued Eliquis 5 mg tablet 5 mg PO BID multivitamin Tablet 1 tab PO DAILY fluoxetine 40 mg capsule 40 mg PO QAM alendronate 70 mg tablet 70 mg PO WK Rx Instructions: MONDAYS divalproex 500 mg tablet extended release 24 hr 1,000 mg PO HS Rx Instructions: TAKE TWO 500 MG TABLETS ALONG WITH ONE 250 MG TALET TO EQUAL 1250 MG DOSE digoxin 125 mcg tablet 125 mcg PO QAM furosemide 20 mg tablet 20 mg PO Q OTHER DAY divalproex 250 mg tablet extended release 24 hr 250 mg PO HS Rx Instructions: TAKE ONE 250 MG TABLET ALONG WITH TWO 500 MG TABLETS TO EQUAL 1250 MG DOSE dexlansoprazole 60 mg capsule,biphase delayed releas 60 mg PO QAM rosuvastatin 40 mg Tablet 40 mg PO QAM aspirin 81 mg tablet,delayed release (DR/EC) 81 mg PO 3XWK Rx Instructions: take daily on thursday,thursday,fridays Discharge Orders: Discharge Order (Routine); Ordered 12/04/22 Ordered By: Juan Andrade/Other Patient Handouts: Urinary Tract Infections in Men Admission Data Admit Date/Time: 11/25/22 18:04 Attending Provider: Juan Crowley Admit Provider: Janneth Granado Primary Care Provider: Richardson Sterling Other Providers: Janneth Granado ; Larry Pang ; Beena Mcmillan ; Tomy London I. ; Everette Winter II ; Madie Reynolds ; Minesh Guzmán ; Milton Denis ; Juan Carlos Henderson ; Marcos Iraheta [facility] Other Interventions: Discharge Summary Assessment (RN) Last Done: 12/04/22 12:40
== END 2022-12-04 14:56 | disposition home health service (06) | DRG 698 ==
LOC: ED 13:53 → SUATTDRO 18:04 → EDINP 18:04 → 1E 22:22 → 2E 11-27 17:34

== ENCOUNTER 2023-02-19 16:38 | Inpatient (IN) ==
--- NOTE | 2023-02-19 17:13 | Emergency Department Note ---
History of Present Illness General Chief complaint: Illness Stated complaint: NAUSEA,CONFUSION,SWEATY,L LEG SWELLING Time Seen by Provider: 02/19/23 16:44 History of Present Illness 67-year-old male presents emergency department with his reportedly a change in mental status that started sometime potentially last night. Patient has been shaking and sweating. thought he might have a urinary tract infection patient has leg swelling patient was supposed to get injections in his knees but he was too sick today to go. Patient has not had a cough cold or congestion. Patient has a [place] catheter placed and the thought he might have a urinary tract infection. There is no reported nausea vomiting or diarrhea. There is been no chest pain. The states he is hard of hearing. Patient however is not responding like he normally would and speaking in full sentences like he normally does. Home Medications Medication Instructions Recorded Confirmed Type alendronate 70 mg tablet 70 mg PO WK 07/05/18 02/19/23 History dexlansoprazole 60 mg 60 mg PO QAM 07/05/18 02/19/23 History capsule,biphase delayed release digoxin 125 mcg (0.125 mg) tablet 125 mcg PO QAM 07/05/18 02/19/23 History divalproex 250 mg tablet,extended 250 mg PO HS 07/05/18 02/19/23 History release 24 hr divalproex 500 mg tablet,extended 1,000 mg PO HS 07/05/18 02/19/23 History release 24 hr fluoxetine 40 mg capsule 40 mg PO QAM 07/05/18 02/19/23 History furosemide 20 mg tablet 20 mg PO Q OTHER DAY 07/05/18 02/19/23 History multivitamin 1 tab PO DAILY 07/05/18 02/19/23 History apixaban 5 mg tablet (Eliquis) 5 mg PO BID 03/11/22 02/19/23 History rosuvastatin 40 mg tablet 40 mg PO QAM 07/04/22 02/19/23 History aspirin 81 mg tablet,delayed 81 mg PO 3XWK 11/25/22 02/19/23 History release docusate sodium 100 mg capsule 100 mg PO BID #30 caps 12/04/22 02/19/23 Rx acetylcysteine 500 mg capsule 500 mg PO DAILY 02/19/23 02/19/23 History betamethasone dipropionate 0.05 % 1 applic topical BID PRN NEEDED 02/19/23 02/19/23 History topical ointment calcium carb-magnesium oxide-vit 1 tab PO DAILY 02/19/23 02/19/23 History D3 400 mg-167 mg-133 unit tablet (Calcium Magnesium + D) coQ10 (ubiquinol) 200 mg capsule 200 mg PO DAILY 02/19/23 02/19/23 History glutathione 50 mg capsule 250 mg PO DAILY 02/19/23 02/19/23 History hydrocodone 5 mg-acetaminophen 325 1 tab PO Q6H PRN Pain 02/19/23 02/19/23 History mg tablet melatonin 5 mg tablet 5 mg PO HS 02/19/23 02/19/23 History phenazopyridine 100 mg tablet 100 mg PO TID PRN DYSURIA 02/19/23 02/19/23 History Allergies Allergy/AdvReac Type Severity Reaction Status Date / Time morphine Allergy Intermediate Itchiness Verified 02/19/23 18:11 naproxen Allergy Intermediate Hives Verified 02/19/23 18:11 Past Med/Surg History Medical History CAD (coronary artery disease) "Left and right heart catheterization report summary 09/21/2014: Proximal LAD has a 60% stenosis, a long 50% mid LAD disease Large branching OM2 has a 50% lesion The RCA has mild luminal irregularities The right sided pressures are mildly elevated without pulmonary hypertension (mean PA = 22 mm Hg), Mean wedge 13 mm Hg, LVEDP 14 mm hg, CO 4.1 (Thermodilution) " Carotid stenosis Convulsions "EEG abnormal in 2006- potential seizure focus in R temporal region 09/10/06" CVA (cerebral infarction) Depressive disorder (04/14/12) Dyslipidemia GERD (gastroesophageal reflux disease) HFrEF (heart failure with reduced ejection fraction) Ischemic cardiomyopathy April 24, 2018 TTE Interpretation Summary ([facility], Dr. Felix): There is a large sized apical, septal, anteroseptal, anterior, inferior, and lateral wall motion abnormality with hypokinesis to dyskinesis of the segments. The left ventricular myocardial thickness is normal in segments with normal wall motion. There is diffuse septal wall , anterior wall , apical wall thinning in a territory of LAD scar. Left ventricular systolic function is severely reduced. Ejection Fraction = 20-25%. No significant valvular pathology. Kidney stone Left spastic hemiplegia Osteoporosis PUD (peptic ulcer disease) S/P ORIF (open reduction internal fixation) fracture "01/07/07 ORIF left tibial plateau fracture " Thrombocytopenia Surgical History Cardiac defibrillator in situ Pacemaker S/P appendectomy Family History Mother , at 68 Myocardial infarction Father , at 68 Myocardial infarction Social History Smoking Status: Former smoker Second Hand Exposure: No; Do You Dip or Chew Tobacco: No; Preferred Language: Croatian Communication Ability: Effective Communication Ability Comment: hx stroke Machine Dyer Required: No Beliefs That Will Affect Care: None marital status: Current Living Situation: Other Current Living Situation Comment: per ER ex is primary care specialist other: Walks with a hemiwalker Feels Safe at Home: Yes Assistive Devices: Hospital Bed and Wheelchair Review of Systems Unobtainable due to cognitive status Physical Exam Vital Signs Vital Signs - 24 hr 02/19/23 16:41 02/19/23 17:34 02/19/23 17:37 Temperature 37.0 C 36.8 C Temperature Source Oral Oral Pulse Rate 142 H Pulse Rate [Apical] 131 H Pulse Rate from SpO2 Sensor Respiratory Rate 24 27 H Respiratory Effort / Characteristics Spontaneous Labored Spontaneous Respiratory Depth Normal Respiratory Pattern Regular Blood Pressure 100/61 Blood Pressure [Right Arm] 127/75 Blood Pressure Mean 74 Blood Pressure Mean [Right Arm] 92 Blood Pressure Position [Right Arm] Lying Pulse Oximetry 98 97 97 Oxygen Delivery Method Room Air Room Air Room Air Sepsis Recent Fever Within 48 Hours No Sepsis New/Unexplained Change in Mental Status N/A Sepsis Action Taken by Nursing No Action Required 02/19/23 17:35 02/19/23 19:19 02/19/23 19:05 Temperature 37.0 C Temperature Source Oral Pulse Rate 132 H Pulse Rate [Apical] Pulse Rate from SpO2 Sensor 134 H Respiratory Rate Respiratory Effort / Characteristics Respiratory Depth Respiratory Pattern Blood Pressure Blood Pressure [Right Arm] Blood Pressure Mean Blood Pressure Mean [Right Arm] Blood Pressure Position [Right Arm] Pulse Oximetry 96 Oxygen Delivery Method Sepsis Recent Fever Within 48 Hours Sepsis New/Unexplained Change in Mental Status Sepsis Action Taken by Nursing 02/19/23 19:31 02/19/23 19:37 02/19/23 19:45 Temperature Temperature Source Pulse Rate 122 H Pulse Rate [Apical] Pulse Rate from SpO2 Sensor 113 H 122 H Respiratory Rate 19 Respiratory Effort / Characteristics Respiratory Depth Respiratory Pattern Blood Pressure 141/81 H Blood Pressure [Right Arm] Blood Pressure Mean 101 Blood Pressure Mean [Right Arm] Blood Pressure Position [Right Arm] Pulse Oximetry 98 100 Oxygen Delivery Method Sepsis Recent Fever Within 48 Hours Sepsis New/Unexplained Change in Mental Status Sepsis Action Taken by Nursing 02/19/23 19:45 02/19/23 20:01 Temperature Temperature Source Pulse Rate 118 H Pulse Rate [Apical] Pulse Rate from SpO2 Sensor 118 H Respiratory Rate 22 Respiratory Effort / Characteristics Respiratory Depth Respiratory Pattern Blood Pressure 144/84 H Blood Pressure [Right Arm] Blood Pressure Mean 104 Blood Pressure Mean [Right Arm] Blood Pressure Position [Right Arm] Pulse Oximetry 98 Oxygen Delivery Method Sepsis Recent Fever Within 48 Hours Sepsis New/Unexplained Change in Mental Status Sepsis Action Taken by Nursing GENERAL: Patient is awake alert diaphoretic, slow to answer EYES: The conjunctivae are clear. The pupils are round and reactive. EARS, NOSE, MOUTH AND THROAT: The nose is without any evidence of any deformity. Mucous membranes are moist. Tongue is midline. NECK: The neck is nontender and supple. RESPIRATORY: Normal respiratory effort is noted there is no evidence of wheezing rhonchi or rales CARDIOVASCULAR: Tachycardic rate and normal rhythm noted there no murmurs rubs or gallops normal S1 normal S2. GASTROINTESTINAL: The abdomen is soft. Abdomen is nontender. Patient has a [place] catheter present BACK: Decrease range of motion MUSCULOSKELETAL/EXTREMITIES: Bilateral lower extremity edema left greater than right SKIN: There is no obvious evidence of any rash. There are no petechiae, pallor or cyanosis noted. Positive for diaphoresis NEUROLOGIC: Patient is awake alert and oriented x 1 Course Reevaluation(s) Reevaluation #1: Patient was started on 2.5 L of saline, empiric Zosyn, patient has an elevated lactate elevated white blood cell count he is normotensive not hypotensive. Patient will require admission for severe sepsis Time: 19:01 Consultations Consultation #1: Case was discussed with the [facility]ist for admission for severe sepsis Time: 19:18 Administered Medications Discontinued Medications Sodium Chloride (Nss 1000ml) 500 mls @ 999 mls/hr IV .Q31M ONE Stop: 02/19/23 17:46 Last Infusion: 02/19/23 18:32 Dose: 0 mls/hr Documented By: Admin: 02/19/23 17:44 Dose: 999 mls/hr Documented By: DANIELLE Sodium Chloride (Nss 1000ml) 2,000 mls @ 999 mls/hr IV .Q2H1M ONE Stop: 02/19/23 19:56 Last Admin: 02/19/23 18:59 Dose: 999 mls/hr Documented By: DANIELLE Piperacillin Sod/Tazobactam Sod (Zosyn) 4.5 gm in 120 mls @ 240 mls/hr IV NOW ONE Stop: 02/19/23 18:26 Last Infusion: 02/19/23 19:37 Dose: 0 mls/hr Documented By: Admin: 02/19/23 18:59 Dose: 240 mls/hr Documented By: DANIELLE Critical Care Time Critical Care Time: Yes Total Critical Care Time: 35 I have personally spent greater than 35 minutes of critical care time in the direct management of this patient. This includes bedside care, interpretation of diagnostic studies, and testing, discussion with consultants, patient, and family members, and other required patient management activities. These minutes are in excess of all separately billable procedures. Medical Decision Making Medical Records Attestation: I reviewed the patient's medical records. Home Medications Current Medication List: was personally reviewed by Laboratory Data Attestation: I reviewed the patient's lab results. Patient has an elevated white blood cell count, elevated lactate, hyponatremia as interpreted by me 02/19/23 17:34 02/19/23 17:34 Lab Results 02/19/23 02/19/23 02/19/23 Range/Units 17:02 17:34 17:34 WBC 19.88 H (4.8-10.8) K/ul RBC 3.01 L (4.70-6.10) M/uL Hgb 9.1 L (14.0-18.0) g/dl Hct 26.6 L (42.0-52.0) % MCV 88.4 (80.0-100.0) fL MCH 30.2 (25.0-34.0) pg MCHC 34.2 (32.0-36.0) g/dL RDW Std Deviation 49.6 H (36.4-46.3) fL RDW Coeff of Pam 15.4 H (11.5-14.5) % Plt Count 157 (130-400) K/uL MPV 12.6 H (9.4-12.4) fL Immature Gran % (Auto) 0.9 % Neut % (Auto) 73.6 % Lymph % (Auto) 10.2 % Johnston % (Auto) 14.9 % Eos % (Auto) 0.1 % Baso % (Auto) 0.3 % Neut # (Auto) 14.66 H (1.40-6.50) K/uL Lymph # (Auto) 2.02 (1.2-3.4) K/uL Johnston # (Auto) 2.97 H (0.11-0.59) K/uL Eos # (Auto) 0.01 (0-0.50) K/uL Baso # (Auto) 0.05 (0-0.2) K/uL Immature Gran # (Auto) 0.17 (0.01-0.20) K/uL PT 12.7 H (9.0-12.0) Seconds INR 1.2 H (0.9-1.1) APTT 32.0 H (21.0-31.0) Seconds PTT Ratio 1.1 Sodium (136-145) mmol/L Potassium (3.5-5.1) mmol/L Chloride (98-107) mmol/L Carbon Dioxide (21-32) mmol/L Anion Gap (3-11) BUN (6-23) mg/dl Creatinine (0.6-1.4) mg/dl Est Cr Clr Drug Dosing ml/min Est GFR ( Amer) ml/min Est GFR (Non-Af Amer) ml/min BUN/Creatinine Ratio (10-20) Glucose (70-99(Fasting)) mg/dl POC Glucose 229 H (70-99) mg/dl Lactate (0.4-2.0) mmol/L Calcium (8.6-10.3) mg/dl Magnesium (1.7-2.4) mg/dl Total Bilirubin (0.2-1.0) mg/dl Direct Bilirubin (0-0.2) mg/dl AST (13-39) U/L ALT (7-52) U/L Alkaline Phosphatase (34-104) U/L Troponin I High Sens (0-20) pg/ml Total Protein (6.0-8.3) gm/dl Albumin (3.4-5.0) gm/dl Procalcitonin (0-0.5) ng/ml Urine Color Urine Appearance (Clear) Urine pH (4.5-7.5) Ur Specific [place] (1.000-1.030) Urine Protein (Negative) Urine Glucose (UA) (Negative) Urine Ketones (Negative) Urine Blood (Negative) Urine Nitrite (Negative) Urine Bilirubin (Negative) Urine Urobilinogen (Negative) Ur Leukocyte Esterase (Negative) Urine WBC (Auto) (0-5) /hpf Urine RBC (Auto) (0-4) /hpf U Hyaline Cast (Auto) (0-5) /lpf U Epithel Cells (Auto) (0-5) /lpf Urine Bacteria (Auto) (Negative) SARS-CoV-2, RNA, NAAT (NEGATIVE) 02/19/23 02/19/23 02/19/23 Range/Units 17:34 17:34 17:34 WBC (4.8-10.8) K/ul RBC (4.70-6.10) M/uL Hgb (14.0-18.0) g/dl Hct (42.0-52.0) % MCV (80.0-100.0) fL MCH (25.0-34.0) pg MCHC (32.0-36.0) g/dL RDW Std Deviation (36.4-46.3) fL RDW Coeff of Pam (11.5-14.5) % Plt Count (130-400) K/uL MPV (9.4-12.4) fL Immature Gran % (Auto) % Neut % (Auto) % Lymph % (Auto) % Johnston % (Auto) % Eos % (Auto) % Baso % (Auto) % Neut # (Auto) (1.40-6.50) K/uL Lymph # (Auto) (1.2-3.4) K/uL Johnston # (Auto) (0.11-0.59) K/uL Eos # (Auto) (0-0.50) K/uL Baso # (Auto) (0-0.2) K/uL Immature Gran # (Auto) (0.01-0.20) K/uL PT (9.0-12.0) Seconds INR (0.9-1.1) APTT (21.0-31.0) Seconds PTT Ratio Sodium 127 L (136-145) mmol/L Potassium 3.7 (3.5-5.1) mmol/L Chloride 95 L (98-107) mmol/L Carbon Dioxide 17 L (21-32) mmol/L Anion Gap 15 H (3-11) BUN 9 (6-23) mg/dl Creatinine 0.72 (0.6-1.4) mg/dl Est Cr Clr Drug Dosing 90.7 ml/min Est GFR ( Amer) 111.1 ml/min Est GFR (Non-Af Amer) 95.9 ml/min BUN/Creatinine Ratio 12.5 (10-20) Glucose 204 H (70-99(Fasting)) mg/dl POC Glucose (70-99) mg/dl Lactate 7.6 H* (0.4-2.0) mmol/L Calcium 9.3 (8.6-10.3) mg/dl Magnesium 1.9 (1.7-2.4) mg/dl Total Bilirubin 0.5 (0.2-1.0) mg/dl Direct Bilirubin 0.1 (0-0.2) mg/dl AST 27 (13-39) U/L ALT 11 (7-52) U/L Alkaline Phosphatase 58 (34-104) U/L Troponin I High Sens 17.0 (0-20) pg/ml Total Protein 7.1 (6.0-8.3) gm/dl Albumin 3.5 (3.4-5.0) gm/dl Procalcitonin 0.05 (0-0.5) ng/ml Urine Color Urine Appearance (Clear) Urine pH (4.5-7.5) Ur Specific [place] (1.000-1.030) Urine Protein (Negative) Urine Glucose (UA) (Negative) Urine Ketones (Negative) Urine Blood (Negative) Urine Nitrite (Negative) Urine Bilirubin (Negative) Urine Urobilinogen (Negative) Ur Leukocyte Esterase (Negative) Urine WBC (Auto) (0-5) /hpf Urine RBC (Auto) (0-4) /hpf U Hyaline Cast (Auto) (0-5) /lpf U Epithel Cells (Auto) (0-5) /lpf Urine Bacteria (Auto) (Negative) SARS-CoV-2, RNA, NAAT (NEGATIVE) 02/19/23 02/19/23 Range/Units 19:14 Unknown WBC (4.8-10.8) K/ul RBC (4.70-6.10) M/uL Hgb (14.0-18.0) g/dl Hct (42.0-52.0) % MCV (80.0-100.0) fL MCH (25.0-34.0) pg MCHC (32.0-36.0) g/dL RDW Std Deviation (36.4-46.3) fL RDW Coeff of Pam (11.5-14.5) % Plt Count (130-400) K/uL MPV (9.4-12.4) fL Immature Gran % (Auto) % Neut % (Auto) % Lymph % (Auto) % Johnston % (Auto) % Eos % (Auto) % Baso % (Auto) % Neut # (Auto) (1.40-6.50) K/uL Lymph # (Auto) (1.2-3.4) K/uL Johnston # (Auto) (0.11-0.59) K/uL Eos # (Auto) (0-0.50) K/uL Baso # (Auto) (0-0.2) K/uL Immature Gran # (Auto) (0.01-0.20) K/uL PT (9.0-12.0) Seconds INR (0.9-1.1) APTT (21.0-31.0) Seconds PTT Ratio Sodium (136-145) mmol/L Potassium (3.5-5.1) mmol/L Chloride (98-107) mmol/L Carbon Dioxide (21-32) mmol/L Anion Gap (3-11) BUN (6-23) mg/dl Creatinine (0.6-1.4) mg/dl Est Cr Clr Drug Dosing ml/min Est GFR ( Amer) ml/min Est GFR (Non-Af Amer) ml/min BUN/Creatinine Ratio (10-20) Glucose (70-99(Fasting)) mg/dl POC Glucose (70-99) mg/dl Lactate (0.4-2.0) mmol/L Calcium (8.6-10.3) mg/dl Magnesium (1.7-2.4) mg/dl Total Bilirubin (0.2-1.0) mg/dl Direct Bilirubin (0-0.2) mg/dl AST (13-39) U/L ALT (7-52) U/L Alkaline Phosphatase (34-104) U/L Troponin I High Sens (0-20) pg/ml Total Protein (6.0-8.3) gm/dl Albumin (3.4-5.0) gm/dl Procalcitonin (0-0.5) ng/ml Urine Color Dark Yellow Urine Appearance Turbid A (Clear) Urine pH 6.0 (4.5-7.5) Ur Specific [place] 1.022 (1.000-1.030) Urine Protein 1+ H (Negative) Urine Glucose (UA) Negative (Negative) Urine Ketones 1+ H (Negative) Urine Blood 3+ H (Negative) Urine Nitrite Negative (Negative) Urine Bilirubin Negative (Negative) Urine Urobilinogen Negative (Negative) Ur Leukocyte Esterase 3+ H (Negative) Urine WBC (Auto) >30 H (0-5) /hpf Urine RBC (Auto) 10-30 H (0-4) /hpf U Hyaline Cast (Auto) 10-30 H (0-5) /lpf U Epithel Cells (Auto) 20-30 H (0-5) /lpf Urine Bacteria (Auto) 1+ H (Negative) SARS-CoV-2, RNA, NAAT NEGATIVE (NEGATIVE) Imaging Data Attestation: I personally reviewed and interpreted this imaging study as follows: My Impression: Chest x-ray interpreted by me negative for infiltrate there is a pacemaker present CT of the brain per my interpretation is negative for intracranial hemorrhage Radiologist's Impression: Chest X-Ray 02/19/23 16:52 XR chest 1V portable CLINICAL HISTORY: Sepsis TECHNIQUE: Single frontal radiograph of the chest was obtained. Comparison: Comparison is made to chest radiographs 11/05/2022 FINDINGS: Pacemaker defibrillator is seen. The cardiomediastinal silhouette is normal. Lungs are underinflated but clear. No evidence of pleural effusion or pneumothorax. IMPRESSION: No acute abnormalities and in particular no radiographic evidence of pneumonia. ACT 112: Negative or not required by law. Electronically signed by: Toni Chapman M.D. 02/19/2023 5:[address] 02/19/23 17:06 CT head/brain wo con CLINICAL HISTORY: ams Technique: Contiguous axial CT images of the head were acquired from the base of the skull to the vertex without intravenous contrast administration. Images were viewed in brain, subdural and bone windows. Automated dose lowering techniques and/or adjustment according to patient size were utilized for this exam. Comparison: Comparison is made to CT head 11/17/2022 Findings: Areas of decreased attenuation are present in the periventricular and subcortical white matter bilaterally consistent with small vessel ischemic disease. Generalized cerebral atrophy with commensurate enlargement of the ventricles, sulci, and cisterns is also present. There is no acute intracranial hemorrhage or evidence of acute territorial infarction. No shift of the midline structures, mass effect, or extra-axial abnormalities are shown. Atherosclerotic calcifications are present in the intracranial segments of the internal carotid arteries. Focal right MCA territory encephalomalacia is unchanged compatible with prior stroke. Exam is limited by patient motion. Imaged portions of the paranasal sinuses and mastoid air cells are clear. The orbits appear normal. There are no acute fractures of the calvaria or scalp swelling. Impression: No acute intracranial hemorrhage, no evidence of acute territorial infarction or other acute intracranial disease process. ACT 112: Negative or not required by law. Electronically signed by: Toni Chapman M.D. 02/19/2023 6:53 PM ECG Data Attestation: I personally reviewed and interpreted this ECG as follows: Additional Comments: EKG interpreted by me sinus tachycardia rate of 130 poor R wave progression the precordium there is a poor baseline due to the patient's shivering normal axis there is no obvious ST segment elevation or depression Telemetry was ordered, interpreted by me as sinus tachycardia, rate of 128 MDM Narrative Medical decision making differential diagnosis includes sepsis, urinary tract infection, pneumonia, COVID, hypoglycemia, intracranial process Plan is to check labs, sepsis labs, CT the patient's brain External medical records were reviewed by me Patient's history was provided to me by the at bedside Patient was started on IV fluids a total of 2.5 L as calculated out as 38 mL/kg, IV Zosyn 4.5 g, patient will be admitted for severe sepsis Impression & Plan Severe sepsis, Acute confusion, Acute hyponatremia, Acute UTI (urinary tract infection) Discharge Plan Visit Data Chief Complaint: Illness Stated Complaint: NAUSEA,CONFUSION,SWEATY,L LEG SWELLING ED Provider: Darren Altman Discharge Problem: Severe sepsis, Acute confusion, Acute hyponatremia, Acute UTI (urinary tract infection) Patient Disposition: Admitted As Inpatient Forms Stand Alone Forms: My [facility] Prescriptions Prescriptions: No Action Eliquis 5 mg tablet 5 mg PO BID multivitamin Tablet 1 tab PO DAILY fluoxetine 40 mg capsule 40 mg PO QAM alendronate 70 mg tablet 70 mg PO WK Rx Instructions: MONDAYS divalproex 500 mg tablet extended release 24 hr 1,000 mg PO HS Rx Instructions: TAKE TWO 500 MG TABLETS ALONG WITH ONE 250 MG TALET TO EQUAL 1250 MG DOSE digoxin 125 mcg tablet 125 mcg PO QAM furosemide 20 mg tablet 20 mg PO Q OTHER DAY divalproex 250 mg tablet extended release 24 hr 250 mg PO HS Rx Instructions: TAKE ONE 250 MG TABLET ALONG WITH TWO 500 MG TABLETS TO EQUAL 1250 MG DOSE dexlansoprazole 60 mg capsule,biphase delayed releas 60 mg PO QAM hydrocodone-acetaminophen 5-325 mg tablet 1 tab PO Q6H PRN (Reason: Pain) phenazopyridine 100 mg tablet 100 mg PO TID PRN (Reason: DYSURIA) Rx Instructions: LAST FILLED 07/08/22 FOR 30 TABS. betamethasone dipropionate 0.05 % ointment 1 applic TOPICAL BID PRN (Reason: NEEDED) glutathione 50 mg Capsule 250 mg PO DAILY Rx Instructions: ON [facility] [place], UNABLE TO VERIFY. Calcium Magnesium + D 400-167-133 mg-mg-unit Tablet 1 tab PO DAILY melatonin 5 mg Tablet 5 mg PO HS coQ10 (ubiquinol) 200 mg Capsule 200 mg PO DAILY acetylcysteine 500 mg Capsule 500 mg PO DAILY rosuvastatin 40 mg Tablet 40 mg PO QAM aspirin 81 mg tablet,delayed release (DR/EC) 81 mg PO 3XWK Rx Instructions: take daily on thursday,thursday,fridays docusate sodium 100 mg Capsule 100 mg PO BID Qty: 30 0RF Referrals Referrals: Richardson Sterling MD [Primary Care Provider] -
[2023-02-19] MEDS ORDERED: SODIUM CHLORIDE 0.9% 1000ML 500 ML IV ONE (17:16)
--- NOTE | 2023-02-19 17:52 | XRay Report ---
XR chest 1V portable CLINICAL HISTORY: Sepsis TECHNIQUE: Single frontal radiograph of the chest was obtained. Comparison: Comparison is made to chest radiographs 11/05/2022 FINDINGS: Pacemaker defibrillator is seen. The cardiomediastinal silhouette is normal. Lungs are underinflated but clear. No evidence of pleural effusion or pneumothorax. IMPRESSION: No acute abnormalities and in particular no radiographic evidence of pneumonia. ACT 112: Negative or not required by law. Electronically signed by: Toni Chapman M.D. 02/19/2023 5:51 PM
[2023-02-19] MEDS ORDERED: SODIUM CHLORIDE 0.9% 1000ML 2,000 ML IV ONE (17:56)
[2023-02-19] MEDS ORDERED: PIPERACILLIN/TAZOBACTAM 4.5 GM/120 ML BAG IV ONE (17:57)
[2023-02-19 18:14] LABS: Basophils # (auto) 0.05 K/uL (0-0.2); Basophils % (auto) 0.3 %; Eosinophils # (auto) 0.01 K/uL (0-0.50); Eosinophils % (auto) 0.1 %; Hematocrit (blood only) 26.6 % (42.0-52.0); Hemoglobin 9.1 g/dl (14.0-18.0); Immature Granulocytes # (auto) 0.17 K/uL (0.01-0.20); Immature Granulocytes % (auto) 0.9 %; Lymphocytes # (auto) 2.02 K/uL (1.2-3.4); Lymphocytes % (auto) 10.2 %; Mean Corpuscular Hemoglobin 30.2 pg (25.0-34.0); Mean Corpuscular Hgb Conc 34.2 g/dL (32.0-36.0); Mean Corpuscular Volume 88.4 fL (80.0-100.0); Mean Platelet Volume 12.6 fL (9.4-12.4); Monocytes # (auto) 2.97 K/uL (0.11-0.59); Monocytes % (auto) 14.9 %; Neutrophils # (auto) 14.66 K/uL (1.40-6.50); Neutrophils % (auto) 73.6 %; Platelet Count 157 K/uL (130-400); RDW Coefficient of Variation 15.4 % (11.5-14.5); RDW Standard Deviation 49.6 fL (36.4-46.3); Red Blood Count 3.01 M/uL (4.70-6.10); White Blood Count 19.88 K/ul (4.8-10.8)
[2023-02-19 18:34] LABS: Albumin Level 3.5 gm/dl (3.4-5.0); BUN Creatinine Ratio 12.5 (10-20); Bilirubin Direct 0.1 mg/dl (0-0.2); Bilirubin,Total 0.5 mg/dl (0.2-1.0); Calcium 9.3 mg/dl (8.6-10.3); Creatinine Clr Calc Pharmacy 90.7 ml/min; Est GFR (African American) 111.1 ml/min; Est GFR (Non-African American) 95.9 ml/min; Magnesium 1.9 mg/dl (1.7-2.4); Potassium 3.7 mmol/L (3.5-5.1); Total Protein 7.1 gm/dl (6.0-8.3)
[2023-02-19 18:39] LABS: INR 1.2 (0.9-1.1); Partial Thromboplastin Ratio 1.1; Prothrombin Time 12.7 Seconds (9.0-12.0)
--- NOTE | 2023-02-19 18:55 | CT Scan Report ---
CT head/brain wo con CLINICAL HISTORY: ams Technique: Contiguous axial CT images of the head were acquired from the base of the skull to the michael dina without intravenous contrast administration. Images were viewed in brain, subdural and [facility]. Automated dose lowering techniques and/or adjustment according to patient size were utilized for this exam. Comparison: Comparison is made to CT head 11/17/2022 Findings: Areas of decreased attenuation are present in the periventricular and subcortical white matter bilate rally consistent with small vessel ischemic disease. Generalized cerebral atrophy with commensurate e nlargement of the ventricles, sulci, and cisterns is also present. There is no acute intracranial hem orrhage or evidence of acute territorial infarction. No shift of the midline structures, mass effect, or extra-axial abnormalities are shown. Atherosclerotic calcifications are present in the intracran ial segments of the internal carotid arteries. Focal right MCA territory encephalomalacia is unchange d compatible with prior stroke. Exam is limited by patient motion. Imaged portions of the paranasal sinuses and mastoid air cells are clear. The orbits appear normal. There are no acute fractures of the calvaria or scalp swelling. Impression: No acute intracranial hemorrhage, no evidence of acute territorial infarction or other acute intracra nial disease process. ACT 112: Negative or not required by law. Electronically signed by: Toni Chapman M.D. 02/19/2023 6:53 PM
[2023-02-19 20:01] LABS: Appearance Urine Turbid (Clear); Bacteria Urine Automated 1+ (Negative); Bilirubin Urine Negative (Negative); Blood Urine 3+ (Negative); Color Urine Dark Yellow; Epithelial Cell Urine Auto 20-30 /lpf (0-5); Glucose Urine UA Negative (Negative); Ketones Urine 1+ (Negative); Leukocyte Esterase Urine 3+ (Negative); Nitrite Urine Negative (Negative); Protein Urine 1+ (Negative); Specific Gravity Urine 1.022 (1.000-1.030); Urobilinogen Urine Negative (Negative); WBC Urine Automated >30 /hpf (0-5)
--- NOTE | 2023-02-19 21:05 | History & Physical Report ---
Date of Service February 19, 2023 Assessment & Plan (1) Severe sepsis: Plan: Patient is a 67-year-old male with a recent admission with Pseudomonas aeruginosa bacteremia who presents to the ED with generalized weakness, fever and left leg swelling. Chest x-ray personally reviewed; no infiltrate. Leukocytosis present Lactate elevated to 7.6, down trended to 6 with hydration. BMP remarkable for anion gap metabolic acidosis secondary to lactic acidosis. Magaña catheter placed in the ED with drainage of cloudy urine. Urinalysis suggestive of infection Started on empiric Zosyn and vancomycin. Will follow urine culture and blood culture. Received IV fluids in the ED. Will continue normal saline at 75 cc/h. will repeat lactic acid; fluid bolus if necessary. (2) Left leg swelling: Plan: Patient's noticed his left leg is increasingly swollen since yesterday. At baseline, she reports it is slightly bigger than right leg. No obvious signs of cellulitis. Reports compliance with Eliquis. Reported history of peripheral artery disease Obtain US venous Doppler to rule out DVT Also, CT angio lower extremity ordered to rule out arterial thrombosis given elevated lactate. will follow-up on results. (3) Hyponatremia: Plan: Sodium of 127 on admission Likely hypovolemic hyponatremia Obtain urine electrolytes, urine osmolarity Continue IV hydration with normal saline. BMP in a.m. Plan Other conditions; HFrEF, history of PR in the past status post ICD. Echocardiogram in October 2022 shows EF of 30 to 35%. Currently compensated. Monitor while on IV hydration. History of cardiac thrombuscurrently on Eliquis. Last echo echo did not show thrombus. History of CVA, peripheral vascular diseasecontinue on aspirin, statin Seizure disordercontinue Depakote Full code DVT prophylaxis Eliquis Time spent evaluating patient, direct bedside care, chart review, placing orders, interpretation of diagnostic studies, discussion with consultants, patient, and family members, as well as other required patient management activities is 88 minutes Please note the above document was generated using voice recognition software. It may contain grammatical, syntax or spelling errors. Any formal questions or concerns about the content, text or information contained within the body of this dictation should be directly addressed to the provider for clarification History of Present Illness Chief Complaint: Generalized weakness for 1 day Left leg swelling for 1 day Fever for 1 day Primary Care Provider: Richardson Sterling MD History obtained from interview with patient's ex- at bedside and chart review. 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 Last admission in November 2022 with urosepsis with Pseudomonas Patient was brought to the hospital by his ex- (who is also his caregiver) due to increasing weakness since yesterday. Reported that patient appears to be lethargic compared to his baseline. She reports that she did not want to wait till patient is more altered and he presented last admission She also noticed increasing swelling of the left leg since yesterday as well. Patient reports fever and chills; denies any pain. She also reports patient being constipated for past few days; last bowel movement was in the ED today. Recent seizure-like activity. At baseline, patient is bedbound due to his stroke and requires assistance with his ADLs. On presentation to the ED, patient was normotensive, tachypneic and tachycardic. He was having chills; temperature was 37.0 C. Lab work was remarkable for leukocytosis, hyponatremia, anion gap metabolic acidosis and lactic acidosis. Urinalysis suggestive of infection. Magaña catheter was placed in the ED. Allergies Allergy/AdvReac Type Severity Reaction Status Date / Time morphine Allergy Intermediate Itchiness Verified 02/19/23 18:11 naproxen Allergy Intermediate Hives Verified 02/19/23 18:11 Home Medications Medication Instructions Recorded Confirmed Type alendronate 70 mg tablet 70 mg PO WK 07/05/18 02/19/23 History dexlansoprazole 60 mg 60 mg PO QAM 07/05/18 02/19/23 History capsule,biphase delayed release digoxin 125 mcg (0.125 mg) tablet 125 mcg PO QAM 07/05/18 02/19/23 History divalproex 250 mg tablet,extended 250 mg PO HS 07/05/18 02/19/23 History release 24 hr divalproex 500 mg tablet,extended 1,000 mg PO HS 07/05/18 02/19/23 History release 24 hr fluoxetine 40 mg capsule 40 mg PO QAM 07/05/18 02/19/23 History furosemide 20 mg tablet 20 mg PO Q OTHER DAY 07/05/18 02/19/23 History multivitamin 1 tab PO DAILY 07/05/18 02/19/23 History apixaban 5 mg tablet (Eliquis) 5 mg PO BID 03/11/22 02/19/23 History rosuvastatin 40 mg tablet 40 mg PO QAM 07/04/22 02/19/23 History aspirin 81 mg tablet,delayed 81 mg PO 3XWK 11/25/22 02/19/23 History release docusate sodium 100 mg capsule 100 mg PO BID #30 caps 12/04/22 02/19/23 Rx acetylcysteine 500 mg capsule 500 mg PO DAILY 02/19/23 02/19/23 History betamethasone dipropionate 0.05 % 1 applic topical BID PRN NEEDED 02/19/23 02/19/23 History topical ointment calcium carb-magnesium oxide-vit 1 tab PO DAILY 02/19/23 02/19/23 History D3 400 mg-167 mg-133 unit tablet (Calcium Magnesium + D) coQ10 (ubiquinol) 200 mg capsule 200 mg PO DAILY 02/19/23 02/19/23 History glutathione 50 mg capsule 250 mg PO DAILY 02/19/23 02/19/23 History hydrocodone 5 mg-acetaminophen 325 1 tab PO Q6H PRN Pain 02/19/23 02/19/23 History mg tablet melatonin 5 mg tablet 5 mg PO HS 02/19/23 02/19/23 History phenazopyridine 100 mg tablet 100 mg PO TID PRN DYSURIA 02/19/23 02/19/23 History Past Med/Surg History Medical History CAD (coronary artery disease) "Left and right heart catheterization report summary 09/21/2014: Proximal LAD has a 60% stenosis, a long 50% mid LAD disease Large branching OM2 has a 50% lesion The RCA has mild luminal irregularities The right sided pressures are mildly elevated without pulmonary hypertension (mean PA = 22 mm Hg), Mean wedge 13 mm Hg, LVEDP 14 mm hg, CO 4.1 (Thermodilution) " Carotid stenosis Convulsions "EEG abnormal in 2006- potential seizure focus in R temporal region 09/10/06" CVA (cerebral infarction) Depressive disorder (04/14/12) Dyslipidemia GERD (gastroesophageal reflux disease) HFrEF (heart failure with reduced ejection fraction) Ischemic cardiomyopathy April 24, 2018 TTE Interpretation Summary ([facility], Dr. Felix): There is a large sized apical, septal, anteroseptal, anterior, inferior, and lateral wall motion abnormality with hypokinesis to dyskinesis of the segments. The left ventricular myocardial thickness is normal in segments with normal wall motion. There is diffuse septal wall , anterior wall , apical wall thinning in a territory of LAD scar. Left ventricular systolic function is severely reduced. Ejection Fraction = 20-25%. No significant valvular pathology. Kidney stone Left spastic hemiplegia Osteoporosis PUD (peptic ulcer disease) S/P ORIF (open reduction internal fixation) fracture "01/07/07 ORIF left tibial plateau fracture " Thrombocytopenia Surgical History Cardiac defibrillator in situ Pacemaker S/P appendectomy Family History Mother , at 68 Myocardial infarction Father , at 68 Myocardial infarction Social History Smoking Status: Former smoker Second Hand Exposure: No; Do You Dip or Chew Tobacco: No; Preferred Language: Macanese Communication Ability: Effective Communication Ability Comment: stroke Public Welfare Director Required: No Beliefs That Will Affect Care: None marital status: Current Living Situation: Other Current Living Situation Comment: per ER ex is primary rn care transition other: Walks with a hemiwalker Feels Safe at Home: Yes Assistive Devices: Hospital Bed and Wheelchair Review of Systems Review of Systems: Unobtainable due to reduced consciousness Physical Exam Physical Exam: Constitutional: Patient lying on the bed; with rigors. Patient is awake able to follow simple commands. Respiratory: Bilateral vesicular breath sound, no added sound. Cardiovascular: RRR, no murmur, no edema Vessels: no JVD or carotid bruit Chest: normal inspection of chest Abdomen: normal bowel sounds, soft, nontender, no hepatosplenomegaly Musculoskeletal: Left leg larger than right leg from thigh and below. He has a superficial skin breakdown on the dorsal aspect of the ankle. No obvious signs of cellulitis. Induration present throughout the leg. Pulses not able to appreciate. Toes are slightly cooler to touch. Skin: no rashes, warm and dry normal turgor Neurologic: Awake alert, oriented to self and place. Left-sided weakness present; at baseline. Results & Data Results & Data Vital Signs (Past 12 Hours) Vital Signs Temp Pulse Pulse Resp BP BP Pulse Ox 02/19/23 20:15 117 H 24 93 02/19/23 20:15 138/83 02/19/23 20:01 118 H 22 98 02/19/23 19:45 144/84 H 02/19/23 19:45 122 H 19 100 02/19/23 19:37 141/81 H 02/19/23 19:31 98 02/19/23 19:05 96 02/19/23 19:19 37.0 C 02/19/23 17:35 132 H 02/19/23 17:37 97 02/19/23 17:34 36.8 C 131 H 27 H 127/75 97 02/19/23 16:41 37.0 C 142 H 24 100/61 98 O2 Del Method 02/19/23 20:15 02/19/23 20:15 02/19/23 20:01 02/19/23 19:45 02/19/23 19:45 02/19/23 19:37 02/19/23 19:31 02/19/23 19:05 02/19/23 19:19 02/19/23 17:35 02/19/23 17:37 Room Air 02/19/23 17:34 Room Air 02/19/23 16:41 Room Air Laboratory Results Laboratory Results WBC 19.88 K/ul (4.8-10.8) H 02/19/23 17:34 RBC 3.01 M/uL (4.70-6.10) L 02/19/23 17:34 Hgb 9.1 g/dl (14.0-18.0) L 02/19/23 17:34 Hct 26.6 % (42.0-52.0) L 02/19/23 17:34 MCV 88.4 fL (80.0-100.0) 02/19/23 17:34 MCH 30.2 pg (25.0-34.0) 02/19/23 17:34 MCHC 34.2 g/dL (32.0-36.0) 02/19/23 17:34 RDW Std Deviation 49.6 fL (36.4-46.3) H 02/19/23 17:34 RDW Coeff of Pam 15.4 % (11.5-14.5) H 02/19/23 17:34 Plt Count 157 K/uL (130-400) 02/19/23 17:34 MPV 12.6 fL (9.4-12.4) H 02/19/23 17:34 Immature Gran % (Auto) 0.9 % 02/19/23 17:34 Neut % (Auto) 73.6 % 02/19/23 17:34 Lymph % (Auto) 10.2 % 02/19/23 17:34 [place] % (Auto) 14.9 % 02/19/23 17:34 Eos % (Auto) 0.1 % 02/19/23 17:34 Baso % (Auto) 0.3 % 02/19/23 17:34 Neut # (Auto) 14.66 K/uL (1.40-6.50) H 02/19/23 17:34 Lymph # (Auto) 2.02 K/uL (1.2-3.4) 02/19/23 17:34 [place] # (Auto) 2.97 K/uL (0.11-0.59) H 02/19/23 17:34 Eos # (Auto) 0.01 K/uL (0-0.50) 02/19/23 17:34 Baso # (Auto) 0.05 K/uL (0-0.2) 02/19/23 17:34 Immature Gran # (Auto) 0.17 K/uL (0.01-0.20) 02/19/23 17:34 PT 12.7 Seconds (9.0-12.0) H 02/19/23 17:34 INR 1.2 (0.9-1.1) H 02/19/23 17:34 APTT 32.0 Seconds (21.0-31.0) H 02/19/23 17:34 PTT Ratio 1.1 02/19/23 17:34 Sodium 127 mmol/L (136-145) L 02/19/23 17:34 Potassium 3.7 mmol/L (3.5-5.1) 02/19/23 17:34 Chloride 95 mmol/L (98-107) L 02/19/23 17:34 Carbon Dioxide 17 mmol/L (21-32) L 02/19/23 17:34 Anion Gap 15 (3-11) H 02/19/23 17:34 BUN 9 mg/dl (6-23) 02/19/23 17:34 Creatinine 0.72 mg/dl (0.6-1.4) 02/19/23 17:34 Est Cr Clr Drug Dosing 90.7 ml/min 02/19/23 17:34 Est GFR ( Amer) 111.1 ml/min 02/19/23 17:34 Est GFR (Non-Af Amer) 95.9 ml/min 02/19/23 17:34 BUN/Creatinine Ratio 12.5 (10-20) 02/19/23 17:34 Glucose 204 mg/dl (70-99(Fasting)) H 02/19/23 17:34 POC Glucose 229 mg/dl (70-99) H 02/19/23 17:02 Lactate 6.0 mmol/L (0.4-2.0) H* 02/19/23 20:10 Calcium 9.3 mg/dl (8.6-10.3) 02/19/23 17:34 Magnesium 1.9 mg/dl (1.7-2.4) 02/19/23 17:34 Total Bilirubin 0.5 mg/dl (0.2-1.0) 02/19/23 17:34 Direct Bilirubin 0.1 mg/dl (0-0.2) 02/19/23 17:34 AST 27 U/L (13-39) 02/19/23 17:34 ALT 11 U/L (7-52) 02/19/23 17:34 Alkaline Phosphatase 58 U/L (34-104) 02/19/23 17:34 Troponin I High Sens 17.0 pg/ml (0-20) 02/19/23 17:34 Total Protein 7.1 gm/dl (6.0-8.3) 02/19/23 17:34 Albumin 3.5 gm/dl (3.4-5.0) 02/19/23 17:34 Procalcitonin 0.05 ng/ml (0-0.5) 02/19/23 17:34 Urine Color Dark Yellow 02/19/23 19:14 Urine Appearance Turbid (Clear) A 02/19/23 19:14 Urine pH 6.0 (4.5-7.5) 02/19/23 19:14 Ur Specific [place] 1.022 (1.000-1.030) 02/19/23 19:14 Urine Protein 1+ (Negative) H 02/19/23 19:14 Urine Glucose (UA) Negative (Negative) 02/19/23 19:14 Urine Ketones 1+ (Negative) H 02/19/23 19:14 Urine Blood 3+ (Negative) H 02/19/23 19:14 Urine Nitrite Negative (Negative) 02/19/23 19:14 Urine Bilirubin Negative (Negative) 02/19/23 19:14 Urine Urobilinogen Negative (Negative) 02/19/23 19:14 Ur Leukocyte Esterase 3+ (Negative) H 02/19/23 19:14 Urine WBC (Auto) >30 /hpf (0-5) H 02/19/23 19:14 Urine RBC (Auto) 10-30 /hpf (0-4) H 02/19/23 19:14 U Hyaline Cast (Auto) 10-30 /lpf (0-5) H 02/19/23 19:14 U Epithel Cells (Auto) 20-30 /lpf (0-5) H 02/19/23 19:14 Urine Bacteria (Auto) 1+ (Negative) H 02/19/23 19:14 SARS-CoV-2, RNA, NAAT NEGATIVE (NEGATIVE) 02/19/23 Unknown Impressions Chest X-Ray 02/19/23 16:52 XR chest 1V portable CLINICAL HISTORY: Sepsis TECHNIQUE: Single frontal radiograph of the chest was obtained. Comparison: Comparison is made to chest radiographs 11/05/2022 FINDINGS: Pacemaker defibrillator is seen. The cardiomediastinal silhouette is normal. Lungs are underinflated but clear. No evidence of pleural effusion or pneumothorax. IMPRESSION: No acute abnormalities and in particular no radiographic evidence of pneumonia. ACT 112: Negative or not required by law. Electronically signed by: Toni Chapman M.D. 02/19/2023 5:[address] 02/19/23 17:06 CT head/brain wo con CLINICAL HISTORY: ams Technique: Contiguous axial CT images of the head were acquired from the base of the skull to the vertex without intravenous contrast administration. Images were viewed in brain, subdural and bone windows. Automated dose lowering techniques and/or adjustment according to patient size were utilized for this exam. Comparison: Comparison is made to CT head 11/17/2022 Findings: Areas of decreased attenuation are present in the periventricular and subcortical white matter bilaterally consistent with small vessel ischemic disease. Generalized cerebral atrophy with commensurate enlargement of the ventricles, sulci, and cisterns is also present. There is no acute intracranial hemorrhage or evidence of acute territorial infarction. No shift of the midline structures, mass effect, or extra-axial abnormalities are shown. Atherosclerotic calcifications are present in the intracranial segments of the internal carotid arteries. Focal right MCA territory encephalomalacia is unchanged compatible with prior stroke. Exam is limited by patient motion. Imaged portions of the paranasal sinuses and mastoid air cells are clear. The orbits appear normal. There are no acute fractures of the calvaria or scalp swelling. Impression: No acute intracranial hemorrhage, no evidence of acute territorial infarction or other acute intracranial disease process. ACT 112: Negative or not required by law. Electronically signed by: Toni Chapman M.D. 02/19/2023 6:53 PM
[2023-02-19] MEDS ORDERED: ALUMINUM/MAGNESIUM SUSP 30 ML UDC PO PRN (21:37)
[2023-02-19] MEDS ORDERED: VANCOMYCIN CONSULT ACTIVE PRN (21:37)
[2023-02-19] MEDS ORDERED: POLYETHYLENE (MIRALAX) 17 GM PACK PO PRN (21:37)
[2023-02-19] MEDS ORDERED: HYDROCODONE/ACETAMOPHEN 5/325MG TAB PO PRN (21:37)
[2023-02-19] MEDS ORDERED: VANCOMYCIN HCL 1,500 MG in SODIUM CHLORIDE 0.9% 500 ML IV ONE (22:00)
[2023-02-19] MEDS: MELATONIN 3 MG TAB PO SCH (22:20)
[2023-02-19] MEDS: APIXABAN 5 MG TABLET PO SCH (22:21)
[2023-02-19] MEDS: DIVALPROEX EXTENDED RELEASE 500 MG TAB PO SCH (22:21)
[2023-02-19] MEDS: DIVALPROEX EXTENDED RELEASE 250 MG TABCR PO SCH (22:22)
[2023-02-19] MEDS: DOCUSATE SODIUM 100 MG CAP PO SCH (22:23)
--- NOTE | 2023-02-19 22:23 | Ultrasound Report ---
Exam(s): US VENOUS BILATERAL LOWER EXTREMITIES EXAM: US Duplex Bilateral Lower Extremities Veins CLINICAL HISTORY: Reason for exam: Rule out DVT. TECHNIQUE: Real-time duplex ultrasound scan of the bilateral lower extremity veins integrating B-mode two-dimensional vascular structure, Doppler spectral analysis, color flow Doppler imaging and compression. COMPARISON: No relevant prior studies available. FINDINGS: Right deep veins: Unremarkable. No DVT in the right common femoral, femoral, proximal deep femoral or popliteal veins. The veins demonstrate normal color flow, are normally compressible, with normal phasic flow and/or augmentation response. Right superficial veins: Unremarkable. No thrombus in the visualized right great saphenous vein. Left deep veins: Left popliteal vein is not seen on this exam secondary to patient inability to position. No DVT in the left common femoral, femoral, or proximal deep femoral veins. The veins demonstrate normal color flow, are normally compressible, with normal phasic flow and/or augmentation response. Left superficial veins: Unremarkable. No thrombus in the visualized left great saphenous vein. Soft tissues: No acute findings. No popliteal cyst. IMPRESSION: No acute findings in the bilateral lower extremity veins. Nonvisualization of the left popliteal vein secondary to patient's inability to position Electronically signed by: Maurilio Adames MD 02/19/23 22:22 PM
[2023-02-19] MEDS: SODIUM CHLORIDE 0.9% 1000ML 1,000 ML IV SCH (22:24)
[2023-02-19] MEDS ORDERED: OPTIRAY 320 125ml IV ONE (23:09)
[2023-02-20 00:17] LABS: Urine Potassium 64.2 mmol/L
[2023-02-20 00:21] LABS: Creatinine Urine Random 118.1 mg/dl
--- NOTE | 2023-02-20 00:31 | CT Scan Report ---
Exam(s): CTA EXTREMITY LEFT LOWER W/WO Contrast IV Amt: 118 ml optiray 320 EXAM: CT Angiography Abdomen and Pelvis With Runoff to the Lower Extremities With Intravenous Contrast CLINICAL HISTORY: Reason for exam: RUle out arterial thrombosis in left leg. TECHNIQUE: Axial computed tomographic angiography images of the abdomen, pelvis and lower extremities with intravenous contrast. CTDI is 28.48 mGy and DLP is 1312.02 mGy-cm. Automated exposure control was utilized for the study. A dose lowering technique was utilized adhering to the principles of ALARA. MIP reconstructed images were created and reviewed. CONTRAST: Patient received 118 ml optiray 320 of IV contrast COMPARISON: No relevant prior studies available. FINDINGS: VASCULATURE: Aorta: Atherosclerotic change within the infrarenal abdominal aortic without focal stenosis. No abdominal aortic aneurysm. No dissection. Celiac trunk and mesenteric arteries: No acute findings. No occlusion or significant stenosis. Renal arteries: No acute findings. No occlusion or significant stenosis. Right iliac arteries: No acute findings. No occlusion or significant stenosis. Right femoral/popliteal arteries: No acute findings. No occlusion or significant stenosis. Right calf/foot arteries: 2 vessel runoff into the foot via the anterior and posterior tibial arteries on the right. Left iliac arteries: No acute findings. No occlusion or significant stenosis. Left femoral/popliteal arteries: No acute findings. No occlusion or significant stenosis. Left calf/foot arteries: Single vessel runoff into the foot via the posterior tibial artery on the left with occlusion of the anterior tibial artery just above the ankle. PELVIS: Appendix: No findings to suggest acute appendicitis. Bladder: Magaña catheter Reproductive: Unremarkable as visualized. ABDOMEN, PELVIS and LOWER EXTREMITIES: Intraperitoneal space: Unremarkable. No significant fluid collection. No free air. Bones/joints: Postoperative changes of ORIF left hip fracture. Postoperative changes plate-screw fixation distal left tibial fracture. No dislocation. Soft tissues: Unremarkable. Lymph nodes: Unremarkable. No enlarged lymph nodes. IMPRESSION: 1. Single vessel runoff into the left foot without evidence of acute arterial thrombus 2. 2 vessel runoff to the foot on the right 3. No significant inflow disease identified on this exam Electronically signed by: Maurilio Adames MD 02/20/23 00:30 AM
[2023-02-20 02:55] LABS: Hematocrit (blood only) 21.3 % (42.0-52.0); Hemoglobin 7.3 g/dl (14.0-18.0); Mean Corpuscular Hemoglobin 30.8 pg (25.0-34.0); Mean Corpuscular Hgb Conc 34.3 g/dL (32.0-36.0); Mean Corpuscular Volume 89.9 fL (80.0-100.0); Platelet Count 106 K/uL (130-400); RDW Coefficient of Variation 15.8 % (11.5-14.5); RDW Standard Deviation 51.3 fL (36.4-46.3); Red Blood Count 2.37 M/uL (4.70-6.10); White Blood Count 17.94 K/ul (4.8-10.8)
[2023-02-20 03:08] LABS: Basophils # (auto) 0.03 K/uL (0-0.2); Basophils % (auto) 0.2 %; Immature Granulocytes # (auto) 0.12 K/uL (0.01-0.20); Immature Granulocytes % (auto) 0.7 %; Lymphocytes # (auto) 1.77 K/uL (1.2-3.4); Lymphocytes % (auto) 9.9 %; Monocytes # (auto) 2.81 K/uL (0.11-0.59); Monocytes % (auto) 15.7 %; Neutrophils # (auto) 13.21 K/uL (1.40-6.50); Neutrophils % (auto) 73.5 %; Ovalocytes 1+
[2023-02-20 03:09] LABS: Albumin Level 2.9 gm/dl (3.4-5.0); BUN Creatinine Ratio 11.1 (10-20); Bilirubin,Total 0.4 mg/dl (0.2-1.0); Calcium 7.9 mg/dl (8.6-10.3); Creatinine Clr Calc Pharmacy 120.9 ml/min; Est GFR (Non-African American) 107.9 ml/min; Globulin 2.8 gm/dl (2.5-4.0); Potassium 4.1 mmol/L (3.5-5.1); Total Protein 5.7 gm/dl (6.0-8.3)
[2023-02-20] MEDS: PIPERACILLIN/TAZOBACTAM 4.5 GM in DEXTROSE 5% 100 ML IV SCH ×2 (03:36→08:36)
[2023-02-20] MEDS: APIXABAN 5 MG TABLET PO SCH (08:34)
[2023-02-20] MEDS: CALCIUM 600MG + VIT D 400 IU TAB PO SCH (08:34)
[2023-02-20] MEDS: ASPIRIN 81 MG ECTAB PO SCH (08:34)
[2023-02-20] MEDS: ACETYLCYSTEINE 600 MG CAP PO SCH (08:34)
[2023-02-20] MEDS: FLUoxetine HCL 20 MG CAP PO SCH (08:34)
[2023-02-20] MEDS: DOCUSATE SODIUM 100 MG CAP PO SCH ×2 (08:34→21:56)
[2023-02-20] MEDS: MAGNESIUM HYDROXIDE SUSP 30 ML UDC PO SCH (08:35)
[2023-02-20] MEDS: MULTIVITAMIN TAB PO SCH (08:35)
[2023-02-20] MEDS: VANCOMYCIN HCL 1,250 MG in SODIUM CHLORIDE 0.9% 250 ML IV SCH ×2 (08:36→21:51)
[2023-02-20] MEDS: ACETAMINOPHEN 325 MG TAB PO PRN (08:48)
[2023-02-20] MEDS ORDERED: GLUTATHIONE PO SCH (09:00)
[2023-02-20] MEDS ORDERED: NON-FORMULARY MEDICATION (Coq10 (Ubiquinol) 200 mg Capsule) PO SCH (09:00)
[2023-02-20] MEDS ORDERED: FUROSEMIDE 20 MG TAB PO SCH (09:00)
[2023-02-20] MEDS ORDERED: VANCOMYCIN HCL 1,000 MG in SODIUM CHLORIDE 0.9% 500 ML IV SCH (09:00)
[2023-02-20] MEDS ORDERED: PANTOprazole 40 MG TAB PO SCH (09:00)
[2023-02-20] MEDS: SODIUM CHLORIDE 0.9% 1000ML 1,000 ML IV SCH (12:50)
--- NOTE | 2023-02-20 14:40 | Hospitalist Progress Note ---
Date of Service February 20, 2023 Assessment & Plan (1) Severe sepsis: Plan: Presumed source of infection is urine Urine is positive for pseudomonas. Review of prior microbiology data--his pseudomonas was sensitive to cefepime. Will discontinue zosyn and start cefepi me. Continue vancomycin pending blood culture Will obtain CT A/P with IV contrast to evaluate for abdominal process (2) Left leg swelling: Plan: Venous ultrasound and CTA left leg both negative for clot Hold off on further IV fluids. Patient with history of systolic CHF. Resume lasix 20mg PO every other day (3) Hyponatremia: Plan: Na improved to 134 (4) Anemia: Plan: Hb 7.3 possibly component of dilutional. However, patient on Eliquis, ex reports he has been complaining of post prandial abdominal pain, and has had intermittent black stools. History of PUD. Will hold Eliquis for now. Start PPI IV BID. Consult GI and Cardiology Plan HFrEF, history of [place] in the past status post ICD. Echocardiogram in October 2022 shows EF of 30 to 35%. Restart lasix History of cardiac thrombus PAF currently on Eliquis--will hold for now with worsening anemia. Last echo echo did not show thrombus. -continue digoxin. History of CVA, peripheral vascular disease continue on aspirin, statin Seizure disordercontinue Depakote Full code DVT prophylaxis SCDs. Admission and Anticipated Discharge Date Admission Date: February 19, 2023 Subjective Patient remains confused I had a lengthy conversion with Trinity Henderson, his ex and caregiver. Baseline Mr Henderson is oriented to person and place but may have early dementia. Baseline he has paralysis of his left side. She reports he has been more confused and less conversive in past couple days. In addition, he suffers from constipation and his stools are intermittently black. She also noted left leg swelling. Review of Systems Review of Systems: Limited due to mental status Physical Exam Physical Exam: No acute distress. Hard of hearing. Pale Respiratory: Breathing comfortably on room air, no wheezing/rhonchi Cardiovascular: Regular rate and rhythm, no murmurs/rubs/gallops Gastrointestinal (Abdomen): soft, non tender Musculoskeletal: 1-2 + edema left leg Neurologic: awake, very hard of hearing, able to move right arm with prompting. baseline left side paralysis Results & Data Results & Data Vital Signs (Past 12 Hours) Vital Signs Temp Pulse Pulse Resp BP Pulse Ox O2 Del Method 02/20/23 11:52 100 H 18 96/54 L 95 Room Air 02/20/23 08:13 37.2 C 106 H 18 95/60 L 100 Room Air 02/20/23 08:09 101 H 02/20/23 03:00 37.2 C 104 H 17 96/63 L 94 Room Air
--- NOTE | 2023-02-20 15:09 | Pharmacy Report ---
Pharmacy PK ABX Note - Date of Service February 20, 2023 - Assessment and Plan Assessment * 67 year old M receiving cefepime and vanco for treatment of sepsis 2nd UTI. * Pertinent microbiologic data includes: urine with probable Pseudomonas * Provider note indicated to continue vanco for now pending blood cultures. Anticipate discontinuation tomorrow. Plan Vancomycin * Maintenance dose: 1250 mg IV every 12 hours * Regimen is predicted to achieve target AUC/DANIKA of 400-600 mg/L.hr * Will order random level in AM in case vancomycin is continued past 48 hours. Pharmacy will continue to follow and will adjust dose/frequency as necessary. Thank you. Pharmacy has transitioned to AUC monitoring for vancomycin. AUC/DANIKA is the preferred PK/PD target and is associated with decreased risk of nephrotoxicity compared to traditional trough targets.
--- NOTE | 2023-02-20 15:14 | Electrocardiogram Report ---
Test Reason : Blood Pressure : / mmHG Vent. Rate : 130 BPM Atrial Rate : 130 BPM P-R Int : 112 ms QRS Dur : 082 ms QT Int : 308 ms P-R-T Axes : 041 -08 190 degrees QTc Int : 453 ms Poor data quality, interpretation may be adversely affected Sinus tachycardia Poor R wave progression, consider anterior [place] vs. lead placement vs. LVH Abnormal ECG When compared with ECG of 25-NOV-2022 14:27, T wave inversion no longer evident in Anterior leads Confirmed by Leo Wright ([id number]) on 02/20/2023 3:14:19 PM Referred By: REFERRED SELF Confirmed By:Leo Wright
--- NOTE | 2023-02-20 15:15 | Gastrointestinal Consultation ---
Date of Consultation February 20, 2023 Assessment & Plan (1) Anemia: (2) Severe sepsis: Pt is a 67 yo male admitted w suspected urosepsis, seen for possible UGI bleed. H/H lower than baseline w reports of pt c/o abd pain and having black stools. H/H lower likely from dilutional effect after he received large amt of bolus in ED. His abd exam is benign and rectal exam w yellow stools. Less likely has GI bleed - Cover w PPI 40mg IV BID - Monitor blood ct and also for any gross s/s of GI bleeding - Repeat H/H now - NPO today but can advance as tolerated if continues to have no gross s/s of GI bleeding - Defer endoscopic evaluation - May hold Eliquis today and restart tomorrow if no gross bleeding Supervising Physician Co-Signing Physician Notes Attg add: Pt admit with confusion. His hgb was 9 in November, and was 9 last night on admission. He received a 2.5 liter bolus for tachycardia, and a few hours later his hgb was 7. He was normotensive on admit, but hsi systolic BP now is 90-100. His BUN is normal. Nurses stated that pt has not had any stool output since admission. On my exam, pt is frail. Rectal exam shows yellow stool. Fall in Hgb seems likely to be dilutional. Exam not c/w GIB. Recs as above. History of Present Illness Reason for Consultation: Concern for UGI bleed Requesting Physician: Dr. Pablo Lam Attending Physician: Dr. Edison Neumann History of Present Illness Pt is a 67 yo male who is seen for concerns of UGI bleed. He is has dementia, unable to provide history. Chart reviewed and we spoke to his RN. Pt w PMHx of CVA, EF, seizure, GERD, urosepsis (Pseudomonas) in 11/2022. He was brought to hospital by caregiver yesterday due to increasing weakness and lethargy. Workup concerning for sepsis, urine culture growing Pseudomonas. He is currently on [place] ncomycin and Cefepime. Pt's blood ct is noted to be lower than baseline. H/H 03/20 (baseline Hgb 9). He's reported to have abd pain and also black stools. On Eliquis and ASA daily. EGD 2006 - hiatal hernia, non bleeding erythematous gastropathy. Allergies Allergy/AdvReac Type Severity Reaction Status Date / Time morphine Allergy Intermediate Itchiness Verified 02/19/23 18:11 naproxen Allergy Intermediate Hives Verified 02/19/23 18:11 Home Medications Medication Instructions Recorded Confirmed Type alendronate 70 mg tablet 70 mg PO WK 07/05/18 02/19/23 History dexlansoprazole 60 mg 60 mg PO QAM 07/05/18 02/19/23 History capsule,biphase delayed release digoxin 125 mcg (0.125 mg) tablet 125 mcg PO QAM 07/05/18 02/19/23 History divalproex 250 mg tablet,extended 250 mg PO HS 07/05/18 02/19/23 History release 24 hr divalproex 500 mg tablet,extended 1,000 mg PO HS 07/05/18 02/19/23 History release 24 hr fluoxetine 40 mg capsule 40 mg PO QAM 07/05/18 02/19/23 History furosemide 20 mg tablet 20 mg PO Q OTHER DAY 07/05/18 02/19/23 History multivitamin 1 tab PO DAILY 07/05/18 02/19/23 History apixaban 5 mg tablet (Eliquis) 5 mg PO BID 03/11/22 02/19/23 History rosuvastatin 40 mg tablet 40 mg PO QAM 07/04/22 02/19/23 History aspirin 81 mg tablet,delayed 81 mg PO 3XWK 11/25/22 02/19/23 History release docusate sodium 100 mg capsule 100 mg PO BID #30 caps 12/04/22 02/19/23 Rx acetylcysteine 500 mg capsule 500 mg PO DAILY 02/19/23 02/19/23 History betamethasone dipropionate 0.05 % 1 applic topical BID PRN NEEDED 02/19/23 02/19/23 History topical ointment calcium carb-magnesium oxide-vit 1 tab PO DAILY 02/19/23 02/19/23 History D3 400 mg-167 mg-133 unit tablet (Calcium Magnesium + D) coQ10 (ubiquinol) 200 mg capsule 200 mg PO DAILY 02/19/23 02/19/23 History glutathione 50 mg capsule 250 mg PO DAILY 02/19/23 02/19/23 History hydrocodone 5 mg-acetaminophen 325 1 tab PO Q6H PRN Pain 02/19/23 02/19/23 History mg tablet melatonin 5 mg tablet 5 mg PO HS 02/19/23 02/19/23 History phenazopyridine 100 mg tablet 100 mg PO TID PRN DYSURIA 02/19/23 02/19/23 History Patient History Medical History CAD (coronary artery disease) "Left and right heart catheterization report summary 09/21/2014: Proximal LAD has a 60% stenosis, a long 50% mid LAD disease Large branching OM2 has a 50% lesion The RCA has mild luminal irregularities The right sided pressures are mildly elevated without pulmonary hypertension (mean PA = 22 mm Hg), Mean wedge 13 mm Hg, LVEDP 14 mm hg, CO 4.1 (Thermodilution) " Carotid stenosis Convulsions "EEG abnormal in 2006- potential seizure focus in R temporal region 09/10/06" CVA (cerebral infarction) Depressive disorder (04/14/12) Dyslipidemia GERD (gastroesophageal reflux disease) HFrEF (heart failure with reduced ejection fraction) Ischemic cardiomyopathy April 24, 2018 TTE Interpretation Summary ([facility], Dr. Felix): There is a large sized apical, septal, anteroseptal, anterior, inferior, and lateral wall motion abnormality with hypokinesis to dyskinesis of the segments. The left ventricular myocardial thickness is normal in segments with normal wall motion. There is diffuse septal wall , anterior wall , apical wall thinning in a territory of LAD scar. Left ventricular systolic function is severely reduced. Ejection Fraction = 20-25%. No significant valvular pathology. Kidney stone Left spastic hemiplegia Osteoporosis PUD (peptic ulcer disease) S/P ORIF (open reduction internal fixation) fracture "01/07/07 ORIF left tibial plateau fracture " Thrombocytopenia Surgical History Cardiac defibrillator in situ Pacemaker S/P appendectomy Family History Mother , at 68 Myocardial infarction Father , at 68 Myocardial infarction Social History Smoking Status: Unknown if ever smoked Second Hand Exposure: No; Do You Dip or Chew Tobacco: No; Hx Alcohol Use: No Hx Substance Use: No Preferred Language: Cypriot Communication Ability: Effective Communication Ability Comment: hx stroke System Configuration Specialist Required: No Beliefs That Will Affect Care: None marital status: Current Living Situation: Family and Other Current Living Situation Comment: ex- is caregiver Other Information That Helps Us Care for You: No other: Walks with a hemiwalker Feels Safe at Home: Yes Safety Concerns: Feels Safe At This Time Assistive Devices: Hospital Bed and Wheelchair Review of Systems Review of Systems: Unobtainable due to cognitive status Physical Exam Constitutional: WD/WN, vitals as above well groomed, cooperative and comfortable Eyes: PERRL, conjunctivae normal, anicteric sclerae ENMT: external ear and nose normal, oropharynx normal Respiratory: Diminished bases Cardiovascular: RRR, no murmur, no edema Gastrointestinal (Abdomen): normal bowel sounds, soft, nontender, no hepatosplenomegaly Rectal exam w yellow colored stools Skin: no rashes, warm and dry no jaundice Psychiatric: Demented Lymphatic: + lymphedema Results & Data Vital Signs (Past 12 Hours) Vital Signs Temp Pulse Pulse Resp BP Pulse Ox O2 Del Method 02/20/23 11:52 100 H 18 96/54 L 95 Room Air 02/20/23 08:13 37.2 C 106 H 18 95/60 L 100 Room Air 02/20/23 08:09 101 H
[2023-02-20] MEDS ORDERED: OPTIRAY 320 100ml IV ONE (16:02)
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
[2023-02-20 16:09] LABS: Hematocrit (blood only) 19.4 % (42.0-52.0); Hemoglobin 6.6 g/dl (14.0-18.0)
--- NOTE | 2023-02-20 16:30 | CT Scan Report ---
CT OF THE ABDOMEN AND PELVIS WITH CONTRAST CLINICAL HISTORY: Sepsis, evaluate for abdominal infection. COMPARISON STUDY: CT of the abdomen and pelvis November 28, 2022. TECHNIQUE: Following IV administration of 95 mL of Optiray, axial images of the abdomen and pelvis we re obtained from the lung bases to the proximal femurs. Images were reviewed in the axial, sagittal, and coronal planes. IV contrast was administered without complication. Automated exposure control wa s utilized for the study. A dose lowering technique was utilized adhering to the principles of ALARA . CT DOSE: 1302.40 mGy.cm FINDINGS: This exam is compromised by motion artifact. There is no consolidation within the lower neil gs to suggest pneumonia. Coronary artery calcification is incidentally noted. Left subclavian pacer i s partially imaged. There are gallstones within the gallbladder. No evidence for acute cholecystitis. The liver, spleen, adrenal glands and pancreas are unremarkable. An 8 mm right ureteropelvic junctio n calculus is again noted. This is similar to CT of November 28, 2022. There is no right hydronephrosis. The appendix is not visualized. The caliber and wall thickness of small and large bowel are normal. There is no evidence for a bowel obstruction. There is no lymphadenopathy. A Magaña balloon within the bladder is present. Bladder wall thickening is noted. This is accentuated by underdistention. There is no fluid collection within the abdomen or pelvis. Left femoral internal fixation is noted. A vascu lar necrosis of the bilateral femoral heads is again noted. Ossific/calcific density within the left ischial tuberosity and the adjacent portion of the left femur is chronic. There is asymmetric enlarge ment of the left adductor muscles. There are several tiny round hyperdense foci within the left adduc tor musculature as well as visualized portions of the left quadriceps. Bilateral lower extremity ananda a is greater on the left. This has increased since CT of February 19, 2023. IMPRESSION: 1. Pronounced bladder wall thickening, accentuated by underdistention. This could be correlated with urinalysis. 2. Asymmetric enlargement of the left adductor musculature, a nonspecific finding. Multiple small hyp erdense foci within the left adductor and quadriceps musculature, partially imaged on this exam. Thes e are entirely nonspecific. However, small foci of bleeding with active extravasation cannot be compl etely excluded. Short-term follow-up CT of the left thigh is recommended. 3. No bowel obstruction. No bowel wall thickening. 4. Redemonstration of an 8 mm right ureteropelvic junction calculus without hydronephrosis. 5. Cholelithiasis. No evidence for acute cholecystitis. ACT 112: Negative or not required by law. Electronically signed by: Krzysztof Sneed M.D. 02/20/2023 4:27 PM
[2023-02-20] MEDS: DIGOXIN 0.125 MG TAB PO SCH (16:44)
[2023-02-20] MEDS ORDERED: SODIUM CHLORIDE 0.9% 250 ML IV PRN (16:58)
[2023-02-20] MEDS ORDERED: FUROSEMIDE 40 MG/4 ML VIAL IV ONE (17:15)
[2023-02-20] MEDS: CEFEPIME 2,000 MG in SYRINGE 0 ML IV SCH (21:43)
[2023-02-20] MEDS: MELATONIN 3 MG TAB PO SCH (21:56)
[2023-02-20] MEDS: DIVALPROEX EXTENDED RELEASE 250 MG TABCR PO SCH (21:57)
[2023-02-20] MEDS: DIVALPROEX EXTENDED RELEASE 500 MG TAB PO SCH (21:58)
[2023-02-20] MEDS: PANTOprazole 40 MG in SYRINGE 0 ML IV SCH (22:41)
[2023-02-21 00:18] LABS: Hematocrit (blood only) 24.6 % (42.0-52.0); Hemoglobin 8.3 g/dl (14.0-18.0); Mean Corpuscular Hemoglobin 30.2 pg (25.0-34.0); Mean Corpuscular Hgb Conc 33.7 g/dL (32.0-36.0); Mean Corpuscular Volume 89.5 fL (80.0-100.0); Mean Platelet Volume 12.1 fL (9.4-12.4); Platelet Count 95 K/uL (130-400); RDW Coefficient of Variation 16.2 % (11.5-14.5); RDW Standard Deviation 52.1 fL (36.4-46.3); Red Blood Count 2.75 M/uL (4.70-6.10); White Blood Count 9.88 K/ul (4.8-10.8)
[2023-02-21] MEDS: ACETAMINOPHEN 325 MG TAB PO PRN (01:38)
[2023-02-21] MEDS: CEFEPIME 2,000 MG in SYRINGE 0 ML IV SCH ×3 (04:00→19:52)
[2023-02-21] MEDS: DICLOFENAC SOD 1% GEL 100 GM TUBE EXT PRN ×2 (05:43→20:10)
[2023-02-21 06:50] LABS: Basophils # (auto) 0.03 K/uL (0-0.2); Basophils % (auto) 0.3 %; Eosinophils # (auto) 0.05 K/uL (0-0.50); Eosinophils % (auto) 0.5 %; Hematocrit (blood only) 24.3 % (42.0-52.0); Hemoglobin 8.3 g/dl (14.0-18.0); Immature Granulocytes # (auto) 0.03 K/uL (0.01-0.20); Immature Granulocytes % (auto) 0.3 %; Mean Corpuscular Hgb Conc 34.2 g/dL (32.0-36.0); Mean Corpuscular Volume 87.7 fL (80.0-100.0); Mean Platelet Volume 12.2 fL (9.4-12.4); Monocytes # (auto) 1.55 K/uL (0.11-0.59); Monocytes % (auto) 16.3 %; Neutrophils # (auto) 5.77 K/uL (1.40-6.50); Neutrophils % (auto) 60.6 %; Platelet Count 94 K/uL (130-400); RDW Coefficient of Variation 16.2 % (11.5-14.5); RDW Standard Deviation 52.1 fL (36.4-46.3); Red Blood Count 2.77 M/uL (4.70-6.10); White Blood Count 9.53 K/ul (4.8-10.8)
[2023-02-21 07:21] LABS: Calcium 7.8 mg/dl (8.6-10.3); Creatinine Clr Calc Pharmacy 132.2 ml/min; Est GFR (African American) 129.1 ml/min; Est GFR (Non-African American) 111.4 ml/min; Potassium 3.3 mmol/L (3.5-5.1)
[2023-02-21] MEDS ORDERED: VANCOMYCIN LEVEL ONE (07:30)
[2023-02-21] MEDS ORDERED: POTASSIUM CHLORIDE 20 MEQ/15 ML UDC PO STA (07:44)
[2023-02-21] MEDS ORDERED: POTASSIUM ACETATE/NSS 10 MEQ/105 ML BAG IV ONE (08:00)
[2023-02-21] MEDS ORDERED: IRON SUCROSE 200 MG in 0.9 % SODIUM CHLORIDE 100 ML IV ONE (08:15)
[2023-02-21] MEDS: DOCUSATE SODIUM 100 MG CAP PO SCH ×2 (08:15→20:04)
[2023-02-21] MEDS: PANTOprazole 40 MG in SYRINGE 0 ML IV SCH ×2 (08:15→20:09)
[2023-02-21] MEDS: MULTIVITAMIN TAB PO SCH (08:15)
[2023-02-21] MEDS: FLUoxetine HCL 20 MG CAP PO SCH (08:15)
[2023-02-21] MEDS: CALCIUM 600MG + VIT D 400 IU TAB PO SCH (08:15)
[2023-02-21] MEDS: MAGNESIUM HYDROXIDE SUSP 30 ML UDC PO SCH (08:15)
[2023-02-21] MEDS: ACETYLCYSTEINE 600 MG CAP PO SCH (08:15)
[2023-02-21] MEDS: VANCOMYCIN HCL 1,250 MG in SODIUM CHLORIDE 0.9% 250 ML IV SCH (08:21)
[2023-02-21 08:55] LABS: Magnesium 1.9 mg/dl (1.7-2.4)
[2023-02-21] MEDS: DIGOXIN 0.125 MG TAB PO SCH (16:55)
--- NOTE | 2023-02-21 17:53 | Hospitalist Progress Note ---
Date of Service February 21, 2023 Assessment & Plan (1) Severe sepsis: Plan: Urinary source. Urine culture + pseudomonas. continue cefepime. daptomycin discontinued CT A/P shows cystitis and small foci of hyperdense material in left adductor and quadriceps muscle which is non specific but small foci of bleed and active contrast extravasation can not be ruled out. Recommend short term follow up CT of thigh (2) Left leg swelling: Plan: Acute on chronic HFrEF, history of OH in the past status post ICD. Echocardiogram in October 2022 shows EF of 30 to 35% Venous ultrasound and CTA left leg both negative for clot Now with worsening lower extremity swelling stop PO lasix. Start lasix 20mg IV TID with hold parameters. KCl 20mg PO TID while on lasix (3) Hyponatremia: Plan: Na improved to 134 (4) Anemia: Plan: Appreciate GI input. Heme occult yesterday negative Upon further investigation, reports he did have some episodes of epistaxis at home (none currently) which may be causing the worsening anemia, in addition to dilution after IVF s/p 1 unit pRBC yesterday. H/H remains stable Iron studies reviewed, will also give 1 dose IV iron Plan History of cardiac thrombus PAF currently on Eliquis--will hold for now with worsening anemia. Last echo echo did not show thrombus. Will continue to monitor Eliquis, resume if H/H remains stable -continue digoxin. History of CVA, peripheral vascular disease continue on aspirin, statin Seizure disordercontinue Depakote Full code DVT prophylaxis SCDs. Admission and Anticipated Discharge Date Admission Date: February 19, 2023 Subjective Confusion is resolved. He recognized his ex . BP is improved Worsening leg swelling Review of Systems Review of Systems: as above Physical Exam Physical Exam: Appears older than stated age, no acute distress Respiratory: diminished at bases, no accessory muscle use, no wheezing Cardiovascular: regular rate and rhythm, no murmurs/rubs/gallops Gastrointestinal (Abdomen): hyperactive, soft, non tender Musculoskeletal: 2+ edema left leg, 1+ edema right leg, +scrotal edema Neurologic: awake, answers simple questions, moves right extremity. Baseline left side hemiparesis Results & Data Results & Data Vital Signs (Past 12 Hours) Vital Signs Temp Pulse Pulse Resp BP Pulse Ox O2 Del Method 02/21/23 16:55 92 H 02/21/23 16:00 36.9 C 90 18 114/70 96 Room Air 02/21/23 15:45 77 02/21/23 10:54 37.1 C 99 H 18 124/71 98 Room Air 02/21/23 07:55 66 02/21/23 07:18 37 C 83 18 95/57 L 98 Room Air
[2023-02-21] MEDS: MELATONIN 3 MG TAB PO SCH (20:04)
[2023-02-21] MEDS: POTASSIUM CHLORIDE CRTAB 20 MEQ TABCR PO SCH (20:04)
[2023-02-21] MEDS: MAGNESIUM OXIDE 400 MG TAB PO SCH (20:05)
[2023-02-21] MEDS: DIVALPROEX EXTENDED RELEASE 250 MG TABCR PO SCH (20:05)
[2023-02-21] MEDS: DIVALPROEX EXTENDED RELEASE 500 MG TAB PO SCH (20:06)
[2023-02-21] MEDS: FUROSEMIDE INJ 20 MG/2 ML VIAL IV SCH (20:09)
[2023-02-22] MEDS: ACETAMINOPHEN 325 MG TAB PO PRN (02:54)
[2023-02-22] MEDS: CEFEPIME 2,000 MG in SYRINGE 0 ML IV SCH ×3 (04:00→20:04)
[2023-02-22 06:38] LABS: Hematocrit (blood only) 23.5 % (42.0-52.0); Hemoglobin 8.2 g/dl (14.0-18.0); Mean Corpuscular Hgb Conc 34.9 g/dL (32.0-36.0); Mean Corpuscular Volume 86.1 fL (80.0-100.0); Mean Platelet Volume 12.3 fL (9.4-12.4); Platelet Count 109 K/uL (130-400); RDW Coefficient of Variation 16.7 % (11.5-14.5); Red Blood Count 2.73 M/uL (4.70-6.10); White Blood Count 8.62 K/ul (4.8-10.8)
[2023-02-22 06:54] LABS: BUN Creatinine Ratio 14.6 (10-20); Creatinine Clr Calc Pharmacy 137.7 ml/min; Est GFR (African American) 131.2 ml/min; Est GFR (Non-African American) 113.2 ml/min; Magnesium 1.9 mg/dl (1.7-2.4); Potassium 3.8 mmol/L (3.5-5.1)
[2023-02-22] MEDS: CALCIUM 600MG + VIT D 400 IU TAB PO SCH (08:25)
[2023-02-22] MEDS: MAGNESIUM OXIDE 400 MG TAB PO SCH ×2 (08:25→20:06)
[2023-02-22] MEDS: MULTIVITAMIN TAB PO SCH (08:25)
[2023-02-22] MEDS: ACETYLCYSTEINE 600 MG CAP PO SCH (08:25)
[2023-02-22] MEDS: PANTOprazole 40 MG in SYRINGE 0 ML IV SCH ×2 (08:25→20:07)
[2023-02-22] MEDS: DOCUSATE SODIUM 100 MG CAP PO SCH ×2 (08:25→20:08)
[2023-02-22] MEDS: FLUoxetine HCL 20 MG CAP PO SCH (08:25)
[2023-02-22] MEDS: MAGNESIUM HYDROXIDE SUSP 30 ML UDC PO SCH (08:25)
[2023-02-22] MEDS: POTASSIUM CHLORIDE CRTAB 20 MEQ TABCR PO SCH ×3 (08:26→20:06)
[2023-02-22] MEDS: FUROSEMIDE INJ 20 MG/2 ML VIAL IV SCH ×3 (08:29→16:47)
[2023-02-22] MEDS ORDERED: bisacodyL 10 MG SUPP PR STA (13:00)
--- NOTE | 2023-02-22 13:03 | Hospitalist Progress Note ---
Date of Service February 22, 2023 Assessment & Plan (1) Severe sepsis: Plan: Urinary source. Urine culture + pseudomonas resistant to fluoroquinolones. continue cefepime. daptomycin discontinued. CT A/P shows cystitis and small foci of hyperdense material in left adductor and quadriceps muscle which is non specific but small foci of bleed and active contrast extravasation can not be ruled out. Recommend short term follow up CT of thigh--will repeat CT left thigh tomorrow prior to restarting Eliquis Day 3 of at least 5 days IV antibiotic (2) Left leg swelling: Plan: Acute on chronic HFrEF, history of [place] in the past status post ICD. Echocardiogram in October 2022 shows EF of 30 to 35% Venous ultrasound and CTA left leg both negative for clot Still with lower extremity swelling Continue lasix 20mg IV TID with hold parameters. KCl 20mg PO TID while on lasix (3) Hyponatremia: Plan: improved (4) Anemia: Plan: Appreciate GI input. Heme occult negative. Can resume Eliquis in 2 days if no evidence of bleed Upon further investigation, reports he did have some episodes of epistaxis at home (none currently) which may be causing the worsening anemia, in addition to dilution after IVF s/p 1 unit pRBC 02/20 H/H remains stable Low iron. received 1 dose IV iron 02/21 Plan History of cardiac thrombus PAF Eliquis currently on hold. Will resume tomorrow if H/H remains stable and pending CT left thigh -continue digoxin. History of CVA, peripheral vascular disease continue on statin. Will resume aspirin Seizure disordercontinue Depakote Full code DVT prophylaxis SCDs. Admission and Anticipated Discharge Date Admission Date: February 19, 2023 Subjective Swelling has improved No BM since Thursday Patient feels well overall Afebrile Review of Systems Review of Systems: As above Physical Exam Physical Exam: Appears older than stated age, no acute distress Respiratory: Breathing comfortably on room air, no wheezing/rhonchi Cardiovascular: regular rate and rhythm, no murmurs/rubs Gastrointestinal (Abdomen): soft, non tender, non distended Musculoskeletal: 1+ edema bilateral LE, +scrotal edema has improved Neurologic: Baseline left side hemiplegia, awake, answers questions appropriately, hard of hearing Results & Data Results & Data Vital Signs (Past 12 Hours) Vital Signs Temp Pulse Pulse Resp BP Pulse Ox O2 Del Method 06/25/23 12:34 36.7 C 97 H 19 102/63 94 Room Air 02/22/23 08:00 36.8 C 80 18 97/60 L 98 Room Air 02/22/23 07:55 71 02/22/23 02:53 37 C 81 18 114/69 96 Room Air
[2023-02-22] MEDS: DIGOXIN 0.125 MG TAB PO SCH (16:46)
[2023-02-22] MEDS: MELATONIN 3 MG TAB PO SCH (20:06)
[2023-02-22] MEDS: DIVALPROEX EXTENDED RELEASE 250 MG TABCR PO SCH (20:07)
[2023-02-22] MEDS: DIVALPROEX EXTENDED RELEASE 500 MG TAB PO SCH (20:08)
[2023-02-23] MEDS: CEFEPIME 2,000 MG in SYRINGE 0 ML IV SCH ×3 (04:35→20:05)
[2023-02-23 06:18] LABS: Hematocrit (blood only) 26.2 % (42.0-52.0); Hemoglobin 8.9 g/dl (14.0-18.0); Mean Corpuscular Hemoglobin 29.9 pg (25.0-34.0); Mean Corpuscular Volume 87.9 fL (80.0-100.0); Mean Platelet Volume 11.2 fL (9.4-12.4); Platelet Count 170 K/uL (130-400); RDW Coefficient of Variation 16.2 % (11.5-14.5); RDW Standard Deviation 51.1 fL (36.4-46.3); Red Blood Count 2.98 M/uL (4.70-6.10); White Blood Count 8.47 K/ul (4.8-10.8)
[2023-02-23 06:28] LABS: BUN Creatinine Ratio 20.4 (10-20); Calcium 8.8 mg/dl (8.6-10.3); Creatinine Clr Calc Pharmacy 134.9 ml/min; Est GFR (African American) 130.1 ml/min; Est GFR (Non-African American) 112.3 ml/min; Magnesium 1.8 mg/dl (1.7-2.4); Potassium 4.1 mmol/L (3.5-5.1)
[2023-02-23] MEDS ORDERED: OPTIRAY 320 100ml IV ONE (09:24)
[2023-02-23] MEDS: FUROSEMIDE INJ 20 MG/2 ML VIAL IV SCH ×3 (09:56→16:31)
[2023-02-23] MEDS: CALCIUM 600MG + VIT D 400 IU TAB PO SCH (09:57)
[2023-02-23] MEDS: MULTIVITAMIN TAB PO SCH (09:57)
[2023-02-23] MEDS: DOCUSATE SODIUM 100 MG CAP PO SCH ×2 (09:57→21:01)
[2023-02-23] MEDS: PANTOprazole 40 MG in SYRINGE 0 ML IV SCH ×2 (09:57→21:02)
[2023-02-23] MEDS: MAGNESIUM OXIDE 400 MG TAB PO SCH ×2 (09:58→21:02)
[2023-02-23] MEDS: ACETYLCYSTEINE 600 MG CAP PO SCH (09:58)
[2023-02-23] MEDS: FLUoxetine HCL 20 MG CAP PO SCH (09:58)
[2023-02-23] MEDS: MAGNESIUM HYDROXIDE SUSP 30 ML UDC PO SCH (09:58)
[2023-02-23] MEDS: POTASSIUM CHLORIDE CRTAB 20 MEQ TABCR PO SCH ×2 (09:59→12:50)
--- NOTE | 2023-02-23 11:12 | CT Scan Report ---
CT SCAN OF THE LEFT FEMUR WITH IV CONTRAST CLINICAL HISTORY: Left leg swelling. Clinical concern for hematoma. COMPARISON STUDY: CT angiogram of the left leg and CT of the pelvis dated 02/19/2023. TECHNIQUE: Following the IV administration of 94 mL of Optiray 320, CT scan of the left femur is perf ormed from the bony pelvis to the knee. Images are reviewed in the axial, sagittal, and coronal plane s. IV contrast was administered without complication. A dose lowering technique was utilized adhering to the principles of ALARA. Note, the interpretation is suboptimal without plain film correlate. CT DOSE: 731.49 mGy.cm FINDINGS: The skeletal structures are osteopenic. There is no evidence of acute right femoral fractur e. The visualized left hemipelvis appears intact. No lytic or blastic lesion is seen. There is posttr aumatic deformity of the left proximal femur with intertrochanteric lag screws in place. 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 No bony erosion or periostitis is seen. There is chronic po st traumatic deformity with postsurgical change seen in the proximal tibia. Degenerative change is no ney in the hip and knee joints. There is no CT evidence of left hip effusion. There is a small knee j oint effusion. There is generalized atrophy of the regional musculature. Edema and possible intramusc ular hemorrhage is again seen within the left adductor musculature as well as within the left quadric eps musculature. No well-delineated hematoma is identified. A tiny hyperdense focus within the left q uadriceps musculature is seen on image #316. A tiny focus of active extravasation is not excluded. Ad ditional foci of extravasation suggested on the 02/19/[address] are no longer seen. Soft tissue e essence is present on the left thigh. No soft tissue gas is seen. The left femoral artery appears patent . No inguinal lymphadenopathy is seen. The bladder is decompressed around a Magaña catheter and appear s circumferentially thick-walled with surrounding inflammation. IMPRESSION: 1. No acute bony abnormality is seen involving the left femur. 2. Again seen is asymmetric edema and possible intramuscular hemorrhage within the left adductor musc ulature as well as the left quadriceps musculature. Correlate clinically. 3. A punctate hyperdense focus within the left quadriceps musculature is nonspecific and a tiny focus of active extravasation is not excluded. Additional foci of active extravasation suggested on the re cent pelvic CT are no longer visualized. 4. No well-delineated/measurable hematoma is identified. 5. There is avascular necrosis of the left femoral head. 6. The appearance of the bladder suggests cystitis. Correlate with clinical findings and urinalysis. 7. Additional findings as above. ACT 112: Negative or not required by law. Dictated: 02/23/2023 10:38 AM Transcribed: 02/23/2023 11:08 AM Roberth [id number] [email or web address] Electronically signed by: Thang Thomas M.D. 02/23/2023 11:11 AM
[2023-02-23] MEDS: DIGOXIN 0.125 MG TAB PO SCH (16:31)
--- NOTE | 2023-02-23 17:27 | Hospitalist Progress Note ---
Date of Service February 23, 2023 Assessment & Plan (1) Severe sepsis: Plan: Urinary source. Urine culture + pseudomonas resistant to fluoroquinolones. continue cefepime. daptomycin discontinued. CT A/P shows cystitis and small foci of hyperdense material in left adductor and quadriceps muscle which is non specific but small foci of bleed and active contrast extravasation can not be ruled out. Recommend short term follow up CT of thigh--will repeat CT left thigh tomorrow prior to restarting Eliquis Initially on zosyn and daptomycin now on cefepime. Total 4 days IV antibiotics currently, plan for 5 day course. (2) Left leg swelling: Plan: Acute on chronic HFrEF, history of NV in the past status post ICD. Echocardiogram in October 2022 shows EF of 30 to 35% Venous ultrasound and CTA left leg both negative for clot Continue lasix 20mg IV TID with hold parameters. KCl 20mg PO TID while on lasix Repeat Left thigh CT today again shows intramuscular swelling, raising question of intramuscular bleed. Discussed with Rosa, patient has not had fall currently but reports he was moved from a wheelchair, into car and maybe pulled his leg? H/H has been stable off Eliquis since 02/20. Will ask for surgery evaluation prior to restarting Eliquis. (3) Hyponatremia: Plan: improved (4) Anemia: Plan: Appreciate GI input. Heme occult negative. Upon further investigation, reports he did have some episodes of epistaxis at home (none currently) which may be causing the worsening anemia, in addition to dilution after IVF. CT left thigh shows possible intramuscular bleed. Will ask for Surgery evaluation s/p 1 unit pRBC 02/20 H/H remains stable Low iron. received 1 dose IV iron 02/21 Plan History of cardiac thrombus PAF Eliquis currently on hold.Will continue to hold pending surgery review of left thigh CT -continue digoxin. History of CVA, peripheral vascular disease continue on statin. Will resume aspirin Seizure disordercontinue Depakote Full code DVT prophylaxis SCDs. Disposition -Patient is from home. He is WC bound. is his bar pointer. They do NOT have a nubia lift, instead, she relies on Cruz to stand and pivot from bed to wheelchair. I am doubtful he can do that currently. Will ask for PT/OT evaluation. Will discuss with CM tomorrow regarding arranging for Nubia lift prior to return home. Admission and Anticipated Discharge Date Admission Date: February 19, 2023 Subjective Feels well. Diuresing well. Net (-) 4L in past 2 days Leg still swollen (left >right), groin swelling is much improved No fevers Review of Systems Review of Systems: as above Physical Exam Physical Exam: Comfortable, no acute distress Respiratory: Breathing comfortably on room air, no wheezing/rhonchi Cardiovascular: Regular rate and rhythm, no murmurs/rubs Gastrointestinal (Abdomen): soft, non tender Musculoskeletal: 1+ edema left leg, trace edema right leg Neurologic: baseline left hemiplegia, awake, alert, some cognitive impairment, hard of hearing, able to answer simple questions Results & Data Results & Data Vital Signs (Past 12 Hours) Vital Signs Temp Pulse Pulse Resp BP Pulse Ox O2 Del Method 02/23/23 16:31 92 H 02/23/23 15:21 36.8 C 95 H 18 114/73 97 Room Air 02/23/23 11:32 37.1 C 100 H 18 102/70 97 Room Air 02/23/23 07:58 36.6 C 95 H 19 135/67 98 Room Air
--- NOTE | 2023-02-23 19:59 | Surgery Consultation ---
Date of Consultation February 23, 2023 Assessment & Plan (1) Left leg swelling: The patient is currently admitted on the hospitalist service And is being treated for sepsis from suspected urinary source with broad-spectrum antibiotics. We will defer management of this condition to the primary service. Concerning the left leg swelling the patient may have a left thigh hematoma. Although he has not had any falls or trauma it is entirely possible he may have pulled a muscle during one of his transfers and in the setting of anticoagulation that could have precipitated a intramuscular bleed. We therefore recommend the following: Patient takes Eliquis and aspirin as an outpatient. Would recommend holding these medications for the present time Follow serial hemoglobin and hematocrits along with serial physical exams When it is certain that the patient's hemoglobin and hematocrit has stabilized and his leg swelling does not seem to getting any worse it may be reasonable to attempt resuming his anticoagulation at that time. Supervising Physician Co-Signing Physician Notes Dr Mena-discussed case with Jonathan Mcintosh and reviewed studies. Lt thigh hematoma on Eliquis and ASA- on hold H/H seem to have stabilized- will follow closely. No indication for surgery at the present time. May consider holding anticoagulation 7-14 days prior to restarting- depending on stroke risk. History of Present Illness Reason for Consultation: Possible left thigh hematoma Attending Physician: Pablo Lam MD History of Present Illness This is a 67-year-old male who was admitted to [facility] on 02/19/2023. At the time of my interview today the patient was noted to be a poor historian and was somewhat lethargic. History was obtained from discussion with the patient's family contact (who is his ex-), review of the chart, and discussion with the nurse attending to the patient. The patient was brought to the hospital on date of admission as the patient was noted to have increasing weakness in the days preceding admission. In addition the patient was also noted to have increased swelling of the left lower extremity. There were some reported fevers and chills. The patient did not complain of any pain at that time. No additional complaints were voiced. At the time of my interview today the patient does note that his left leg is painful with movement and palpation. On discussion with the patient's ex-, she notes that he requires the assistance of at least 1 person for any type of transfer. She notes that he has not had any falls in the preceding days or weeks prior to admission but does note that it is possible that the patient may have pulled his leg in a funny way during some of his transfers. She also adds that he takes Eliquis and aspirin for anticoagulation which may have been contributing to the patient's lower extremity swelling and pain. Since arrival to the hospital the patient has had labs and imaging which I independent reviewed. On 02/19/2023 the patient had a chest x-ray that showed no evidence of pneumonia. On this date he also had a CT scan of the head that showed no acute intracranial hemorrhage or acute stroke. He also underwent a CT angiogram of the left lower extremity. This showed the patient had single- vessel runoff into the left foot without evidence of acute arterial thrombosis. The single-vessel runoff was via the posterior tibial artery. He was noted to have occlusion of the anterior tibial artery. Patient also underwent a venous Doppler of the left lower extremities on the same day that showed no evidence of DVT. On 02/20/[address] the patient underwent a CT scan of the abdomen and pelvis. This showed the patient had asymmetric enlargement of the left abductor musculature as well as the quadriceps musculature with possible left thigh hematoma noted. Extravasation could not be excluded on this study. This was followed up with a CT scan of the left femur on 02/23/2023 where patient was again noted to have asymmetric edema of the left abductor and quadriceps musculature. An intramuscular hematoma could not be excluded. Active extravasation was not included. Patient's labs were reviewed and most recent labs were from today which included a white blood cell count of 8.4. At time of admission his white blood cell count was 19.8. Hemoglobin and hematocrit today are 8.9 and 26.2. At time of admission his hemoglobin was noted to be 9.1 and had dropped to 6.6 on the of this month. The patient did receive 1 unit of packed red blood cells with rise to his current value. Platelet count is noted to be within the normal range but was as low as 95,000 this admission. Chemistry profile currently shows sodium and potassium are normal and his BUN and creatinine are also nonelevated. The patient has been tested for COVID-19 since admission which was noted to be negative. Allergies Allergy/AdvReac Type Severity Reaction Status Date / Time morphine Allergy Intermediate Itchiness Verified 02/19/23 18:11 naproxen Allergy Intermediate Hives Verified 02/19/23 18:11 Home Medications Medication Instructions Recorded Confirmed Type alendronate 70 mg tablet 70 mg PO WK 07/05/18 02/19/23 History dexlansoprazole 60 mg 60 mg PO QAM 07/05/18 02/19/23 History capsule,biphase delayed release digoxin 125 mcg (0.125 mg) tablet 125 mcg PO QAM 07/05/18 02/19/23 History divalproex 250 mg tablet,extended 250 mg PO HS 07/05/18 02/19/23 History release 24 hr divalproex 500 mg tablet,extended 1,000 mg PO HS 07/05/18 02/19/23 History release 24 hr fluoxetine 40 mg capsule 40 mg PO QAM 07/05/18 02/19/23 History furosemide 20 mg tablet 20 mg PO Q OTHER DAY 07/05/18 02/19/23 History multivitamin 1 tab PO DAILY 07/05/18 02/19/23 History apixaban 5 mg tablet (Eliquis) 5 mg PO BID 03/11/22 02/19/23 History rosuvastatin 40 mg tablet 40 mg PO QAM 07/04/22 02/19/23 History aspirin 81 mg tablet,delayed 81 mg PO 3XWK 11/25/22 02/19/23 History release docusate sodium 100 mg capsule 100 mg PO BID #30 caps 12/04/22 02/19/23 Rx acetylcysteine 500 mg capsule 500 mg PO DAILY 02/19/23 02/19/23 History betamethasone dipropionate 0.05 % 1 applic topical BID PRN NEEDED 02/19/23 02/19/23 History topical ointment calcium carb-magnesium oxide-vit 1 tab PO DAILY 02/19/23 02/19/23 History D3 400 mg-167 mg-133 unit tablet (Calcium Magnesium + D) coQ10 (ubiquinol) 200 mg capsule 200 mg PO DAILY 02/19/23 02/19/23 History glutathione 50 mg capsule 250 mg PO DAILY 02/19/23 02/19/23 History hydrocodone 5 mg-acetaminophen 325 1 tab PO Q6H PRN Pain 02/19/23 02/19/23 History mg tablet melatonin 5 mg tablet 5 mg PO HS 02/19/23 02/19/23 History phenazopyridine 100 mg tablet 100 mg PO TID PRN DYSURIA 02/19/23 02/19/23 History Patient History Medical History CAD (coronary artery disease) "Left and right heart catheterization report summary 09/21/2014: Proximal LAD has a 60% stenosis, a long 50% mid LAD disease Large branching OM2 has a 50% lesion The RCA has mild luminal irregularities The right sided pressures are mildly elevated without pulmonary hypertension (mean PA = 22 mm Hg), Mean wedge 13 mm Hg, LVEDP 14 mm hg, CO 4.1 (Thermodilution) " Carotid stenosis Convulsions "EEG abnormal in 2006- potential seizure focus in R temporal region 09/10/06" CVA (cerebral infarction) Depressive disorder (04/14/12) Dyslipidemia GERD (gastroesophageal reflux disease) HFrEF (heart failure with reduced ejection fraction) Ischemic cardiomyopathy April 24, 2018 TTE Interpretation Summary ([facility], Dr. Felix): There is a lar ge sized apical, septal, anteroseptal, anterior, inferior, and lateral wall motion abnormality with hypokinesis to dyskinesis of the segments. The left ventricular myocardial thickness is normal in segments with normal wall motion. There is diffuse septal wall , anterior wall , apical wall thinning in a territory of LAD scar. Left ventricular systolic function is severely reduced. Ejection Fraction = 20-25%. No significant valvular pathology. Kidney stone Left spastic hemiplegia Osteoporosis PUD (peptic ulcer disease) S/P ORIF (open reduction internal fixation) fracture "01/07/07 ORIF left tibial plateau fracture " Thrombocytopenia Surgical History Cardiac defibrillator in situ Pacemaker S/P appendectomy Family History Mother , at 68 Myocardial infarction Father , at 68 Myocardial infarction Social History Smoking Status: Unknown if ever smoked Second Hand Exposure: No; Do You Dip or Chew Tobacco: No; Hx Alcohol Use: No Hx Substance Use: No Preferred Language: Telugu Communication Ability: Effective Communication Ability Comment: hx stroke Certified Ophthalmic Assistant Required: No Beliefs That Will Affect Care: None marital status: Current Living Situation: Family and Other Current Living Situation Comment: ex- is caregiver Other Information That Helps Us Care for You: No other: Walks with a hemiwalker Feels Safe at Home: Yes Safety Concerns: Feels Safe At This Time Assistive Devices: Hospital Bed and Wheelchair Review of Systems Review of Systems: Unobtainable due to cognitive status Physical Exam Constitutional: no acute distress Eyes: no conjunctival abnormality ENMT: Ears: no hearing impairment and no external ear abnormality Mouth: no oropharynx abnormality Neck: trachea midline Respiratory: normal respiratory effort; no respiratory distress and no labored breathing Cardiovascular: Rate/Rhythm: regular rate and regular rhythm Gastrointestinal (Abdomen): Soft and nondistended. Nonpainful to palpation Musculoskeletal: The patient's left thigh was noted to be somewhat swollen and tense compared to the right thigh. There were no visible areas of ecchymosis or bleeding. The left thigh was slightly warm to touch and was painful to palpation. Pedal pulses were nonpalpable. I was able to Doppler a left posterior tibial artery easily. The left dorsalis pedis artery was non-dopplerable. Overall, the patient's foot was warm and non-mottled. Skin: No rashes or areas of ecchymosis Neurologic: Patient is alert only to person at this time. He is able to move all 4 extremities and follows some simple commands however he is slow to do so and weakness on the left compared to the right is noted. Results & Data Vital Signs (Past 12 Hours) Vital Signs Temp Pulse Pulse Resp BP Pulse Ox Pulse Ox 02/23/23 19:12 37 C 90 18 119/74 97 02/23/23 17:36 101 H 02/23/23 17:00 97 02/23/23 16:31 92 H 02/23/23 15:21 36.8 C 95 H 18 114/73 97 02/23/23 11:32 37.1 C 100 H 18 102/70 97 02/23/23 07:58 36.6 C 95 H 19 135/67 98 O2 Del Method O2 Del Method 02/23/23 19:12 Room Air 02/23/23 17:36 02/23/23 17:00 Room Air 02/23/23 16:31 02/23/23 15:21 Room Air 02/23/23 11:32 Room Air 02/23/23 07:58 Room Air PG Care Time/CCT Total # of Minutes Spent Total Time Spent with Patient: Total time spent is greater than 50% in coordination of care (as documented) at patient's floor/unit and/or counseling patient: Coding Level of Care Code 48869 INT INP/OBS CARE 3/75MIN Diagnoses Left leg swelling M79.89
[2023-02-23] MEDS: MELATONIN 3 MG TAB PO SCH (21:01)
[2023-02-23] MEDS: DIVALPROEX EXTENDED RELEASE 250 MG TABCR PO SCH (21:02)
[2023-02-23] MEDS: DIVALPROEX EXTENDED RELEASE 500 MG TAB PO SCH (21:02)
[2023-02-24] MEDS: CEFEPIME 2,000 MG in SYRINGE 0 ML IV SCH ×3 (04:02→20:05)
[2023-02-24 06:05] LABS: Hematocrit (blood only) 27.3 % (42.0-52.0); Hemoglobin 9.3 g/dl (14.0-18.0); Mean Corpuscular Hemoglobin 30.2 pg (25.0-34.0); Mean Corpuscular Hgb Conc 34.1 g/dL (32.0-36.0); Mean Corpuscular Volume 88.6 fL (80.0-100.0); Mean Platelet Volume 10.5 fL (9.4-12.4); Platelet Count 200 K/uL (130-400); RDW Coefficient of Variation 16.4 % (11.5-14.5); RDW Standard Deviation 51.6 fL (36.4-46.3); Red Blood Count 3.08 M/uL (4.70-6.10); White Blood Count 8.49 K/ul (4.8-10.8)
[2023-02-24 06:24] LABS: BUN Creatinine Ratio 28.3 (10-20); Calcium 9.3 mg/dl (8.6-10.3); Creatinine Clr Calc Pharmacy 124.7 ml/min; Est GFR (Non-African American) 108.7 ml/min; Potassium 4.2 mmol/L (3.5-5.1)
--- NOTE | 2023-02-24 06:29 | Surgery Progress Note ---
Date of Service February 24, 2023 Assessment & Plan (1) Hematoma: Plan: Patient with intramuscular hemorrhage on Eliquis and aspirinthese are now on hold There is not appear to be a significant overt collection Check a.m. H&H Could consider restart on anticoagulation in 7 to 14 days if he is stable We will consider Ortho evaluation-if this were to worsen patient may require surgical intervention including fasciotomy I do not plan on surgical intervention on this patient Admission and Anticipated Discharge Date Admission Date: February 19, 2023 Subjective Patient awake Vital signs stable H&H is pending Review of Systems Review of Systems: All systems reviewed & are unremarkable except as noted in HPI & below Physical Exam Physical Exam: Left thigh is swollen more than the right There is no evidence of any ecchymosis Results & Data Vital Signs (Past 12 Hours) Vital Signs Temp Pulse Pulse Resp BP Pulse Ox O2 Del Method 02/24/23 02:47 37 C 88 18 113/64 96 Room Air 02/23/23 23:00 82 02/23/23 22:51 37 C 84 18 105/62 97 Room Air 02/23/23 19:12 37 C 90 18 119/74 97 Room Air PG Care Time/CCT Total # of Minutes Spent Total Time Spent with Patient: Total time spent is greater than 50% in coordination of care (as documented) at patient's floor/unit and/or counseling patient: Coding Level of Care Code 39861 SUB INP/OBS CARE 25MIN Diagnoses Hematoma T14.8XXA
[2023-02-24] MEDS: FUROSEMIDE INJ 20 MG/2 ML VIAL IV SCH ×3 (09:00→16:14)
[2023-02-24] MEDS: CALCIUM 600MG + VIT D 400 IU TAB PO SCH (09:01)
[2023-02-24] MEDS: ACETYLCYSTEINE 600 MG CAP PO SCH (09:01)
[2023-02-24] MEDS: MULTIVITAMIN TAB PO SCH (09:01)
[2023-02-24] MEDS: DOCUSATE SODIUM 100 MG CAP PO SCH ×2 (09:01→20:09)
[2023-02-24] MEDS: MAGNESIUM OXIDE 400 MG TAB PO SCH ×2 (09:01→20:10)
[2023-02-24] MEDS: SACCHAROMYCES BOULARDII 250 MG CAP PO SCH (09:02)
[2023-02-24] MEDS: PANTOprazole 40 MG in SYRINGE 0 ML IV SCH ×2 (09:02→20:06)
[2023-02-24] MEDS: FLUoxetine HCL 20 MG CAP PO SCH (09:02)
[2023-02-24] MEDS: MAGNESIUM HYDROXIDE SUSP 30 ML UDC PO SCH (09:02)
[2023-02-24] MEDS: DIGOXIN 0.125 MG TAB PO SCH (16:15)
--- NOTE | 2023-02-24 18:50 | Hospitalist Progress Note ---
Date of Service February 24, 2023 Assessment & Plan (1) Severe sepsis: Plan: Urinary source. Urine culture + pseudomonas resistant to fluoroquinolones. continue cefepime. daptomycin discontinued. CT A/P shows cystitis and small foci of hyperdense material in left adductor and quadriceps muscle which is non specific but small foci of bleed and active contrast extravasation can not be ruled out. Initially on zosyn and daptomycin now on cefepime. Total 5 days IV antibiotics currently, plan for 5 day course. (2) Left leg swelling: Plan: Acute on chronic HFrEF, history of CA in the past status post ICD. Echocardiogram in October 2022 shows EF of 30 to 35% Venous ultrasound and CTA left leg both negative for clot Continue lasix 20mg IV TID with hold parameters. KCl 20mg PO TID while on lasix Repeat Left thigh CT 02/23 again shows intramuscular swelling, raising question of intramuscular bleed. Discussed with Rosa, patient has not had fall currently but reports he was moved from a wheelchair, into car and maybe pulled his leg? H/H has been stable off Eliquis since 02/20. Evaluated by surgery. Recommend holding Eliquis for 7-10 days prior to resuming Will continue to monitor. Repeat CBC tomorrow (3) Hyponatremia: Plan: improved (4) Anemia: Plan: Appreciate GI input. Heme occult negative. Upon further investigation, reports he did have some episodes of epistaxis at home (none currently) which may be causing the worsening anemia, in addition to dilution after IVF. CT left thigh shows possible intramuscular bleed. s/p 1 unit pRBC 02/20 H/H remains stable Low iron. received 1 dose IV iron 02/21 Plan History of cardiac thrombus PAF Eliquis currently on hold -continue digoxin. History of CVA, peripheral vascular disease continue on statin. Will resume aspirin Seizure disordercontinue Depakote Full code DVT prophylaxis SCDs. Disposition -Patient is from home. He is WC bound. 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 Rx given for Malena lift today Admission and Anticipated Discharge Date Admission Date: February 19, 2023 Subjective Doing well. No new complaints Diuresing well Still with left leg swelling Review of Systems Review of Systems: as above Physical Exam Physical Exam: Appears older than stated age, no acute distress, non toxic Respiratory: Breathing comfortably on room air, no wheezing/rhonchi/rales Cardiovascular: regular rate and rhythm, no murmurs/rubs Gastrointestinal (Abdomen): soft, non tender, non distended Musculoskeletal: 1+ edema left leg, trace edema right leg Neurologic: baseline left hemiplegia, awake, hard of hearing, answers simple questions Results & Data Results & Data Vital Signs (Past 12 Hours) Vital Signs Temp Pulse Pulse Resp BP Pulse Ox Pulse Ox 02/24/23 17:00 97 02/24/23 16:00 95 H 02/24/23 16:15 95 H 02/24/23 14:54 37.2 C 91 H 19 119/74 96 02/24/23 11:42 86 20 97/61 L 97 02/24/23 07:58 36.7 C 90 18 93/59 L 97 O2 Del Method O2 Del Method 02/24/23 17:00 Room Air 02/24/23 16:00 02/24/23 16:15 02/24/23 14:54 Room Air 02/24/23 11:42 Room Air 02/24/23 07:58 Room Air
[2023-02-24] MEDS: bisacodyL 10 MG SUPP PR PRN (20:05)
[2023-02-24] MEDS: MELATONIN 3 MG TAB PO SCH (20:10)
[2023-02-24] MEDS: DIVALPROEX EXTENDED RELEASE 250 MG TABCR PO SCH (20:11)
[2023-02-24] MEDS: DIVALPROEX EXTENDED RELEASE 500 MG TAB PO SCH (20:11)
[2023-02-25] MEDS: CEFEPIME 2,000 MG in SYRINGE 0 ML IV SCH ×3 (03:56→20:34)
[2023-02-25 07:21] LABS: Hematocrit (blood only) 28.3 % (42.0-52.0); Hemoglobin 9.5 g/dl (14.0-18.0); Mean Corpuscular Hgb Conc 33.6 g/dL (32.0-36.0); Mean Corpuscular Volume 89.3 fL (80.0-100.0); Mean Platelet Volume 10.5 fL (9.4-12.4); Platelet Count 236 K/uL (130-400); RDW Coefficient of Variation 16.4 % (11.5-14.5); RDW Standard Deviation 51.6 fL (36.4-46.3); Red Blood Count 3.17 M/uL (4.70-6.10); White Blood Count 8.86 K/ul (4.8-10.8)
[2023-02-25 07:31] LABS: BUN Creatinine Ratio 27.1 (10-20); Calcium 9.5 mg/dl (8.6-10.3); Creatinine Clr Calc Pharmacy 137.7 ml/min; Est GFR (African American) 131.2 ml/min; Est GFR (Non-African American) 113.2 ml/min
[2023-02-25] MEDS: FUROSEMIDE INJ 20 MG/2 ML VIAL IV SCH ×3 (07:59→16:21)
[2023-02-25] MEDS: ACETYLCYSTEINE 600 MG CAP PO SCH (08:00)
[2023-02-25] MEDS: PANTOprazole 40 MG in SYRINGE 0 ML IV SCH ×2 (08:01→20:34)
[2023-02-25] MEDS: CALCIUM 600MG + VIT D 400 IU TAB PO SCH (08:01)
[2023-02-25] MEDS: MULTIVITAMIN TAB PO SCH (08:01)
[2023-02-25] MEDS: DOCUSATE SODIUM 100 MG CAP PO SCH ×2 (08:01→20:36)
[2023-02-25] MEDS: FLUoxetine HCL 20 MG CAP PO SCH (08:02)
[2023-02-25] MEDS: SACCHAROMYCES BOULARDII 250 MG CAP PO SCH (08:02)
[2023-02-25] MEDS: MAGNESIUM OXIDE 400 MG TAB PO SCH ×2 (08:02→20:36)
[2023-02-25] MEDS: MAGNESIUM HYDROXIDE SUSP 30 ML UDC PO SCH (08:03)
[2023-02-25] MEDS: ASPIRIN 81 MG ECTAB PO SCH (08:50)
--- NOTE | 2023-02-25 14:49 | Hospitalist Progress Note ---
Date of Service February 25, 2023 Assessment & Plan (1) Severe sepsis: Plan: Sepsis UTI Urine culture Pseudomonas Continue cefepime Left Leg Hematoma No known H/O Trauma/Fall --CT A/P shows cystitis and small foci of hyperdense material in left adductor and quadriceps muscle which is non specific but small foci of bleed and active contrast extravasation can not be ruled out. --Repeat Left thigh CT 02/23 again shows intramuscular swelling, raising question of intramuscular bleed. Discussed with Rosa, patient has not had fall currently but reports he was moved from a wheelchair, into car and maybe pulled his leg? H/H has been stable off Eliquis since 02/20. Appreciate surgery input Aspirin resumed Continue to hold Eliquis Monitor CBC We will need to hold anticoagulation for 7 to 14 days (2) Left leg swelling: Plan: Acute on chronic HFrEF, history of ND in the past status post ICD. --Echocardiogram in October 2022 shows EF of 30 to 35% --Venous ultrasound and CTA left leg both negative for clot --Continue lasix 20mg IV TID with hold parameters. KCl 20mg PO TID while on Lasix Monitor volume status (3) Hyponatremia: Plan: Sodium 134 today Monitor (4) Anemia: Plan: Appreciate GI input. Heme occult negative. Upon further investigation, reports he did have some episodes of epistaxis at home (none currently) which may be causing the worsening anemia, in addition to dilution after IVF. CT left thigh shows possible intramuscular bleed. s/p 1 unit pRBC 02/20 H/H remains stable Low iron. received 1 dose IV iron 02/21 Monitor CBC Plan History of cardiac thrombus PAF Eliquis currently on hold -continue digoxin. History of CVA, peripheral vascular disease continue on aspirin, statin Seizure disorder continue Depakote Code Status Full code DVT Px: SCDs. Disposition Home as able Admission and Anticipated Discharge Date Admission Date: February 19, 2023 Subjective Patient is seen and examined at bedside Unable to obtain any history No distress on exam Leg edema improving Hemoglobin stable No events overnight Review of Systems Review of Systems: All systems reviewed & are unremarkable except as noted in Subjective Physical Exam Physical Exam: Physical Exam: Vitals signs as noted above General Appearance:Moderately built and nourished, chronically appearing, no apparent distress Head: normocephalic, Atraumatic Eyes: normal inspection, EOMI Neck: supple, Trachea midline Respiratory/Chest: Normal breath sounds, CTA, No accessory muscle use, +Pacer on Left Cardiovascular: S1, S2, No murmur Abdomen/GI:Soft, Non tender, Bowel sounds present Extremities/Musculoskeletal:normal inspection, 1+ edema Neurologic/Psych: Alert, awake, mostly nonverbal, unable to perform complete neurological exam as does not follow commands Seem to have left hemiplegia Skin: normal color, warm Results & Data Results & Data Vital Signs (Past 12 Hours) Vital Signs Temp Pulse Resp BP Pulse Ox O2 Del Method 02/25/23 11:33 36.9 C 95 H 16 125/72 97 Room Air 02/25/23 07:58 37 C 85 16 96/61 L 93 Room Air 02/25/23 03:57 36.5 C 89 16 99/66 L 96 Room Air Laboratory Results Short CBC 02/25/23 Range/Units 06:48 WBC 8.86 (4.8-10.8) K/ul Hgb 9.5 L (14.0-18.0) g/dl Hct 28.3 L (42.0-52.0) % Plt Count 236 (130-400) K/uL BMP 02/25/23 06:48 Sodium 134 L Potassium 4.0 Chloride 100 Carbon Dioxide 29 BUN 13 Creatinine 0.48 L Glucose 109 H Calcium 9.5
[2023-02-25] MEDS: DIGOXIN 0.125 MG TAB PO SCH (15:38)
[2023-02-25] MEDS: bisacodyL 10 MG SUPP PR PRN (17:39)
[2023-02-25] MEDS: DIVALPROEX EXTENDED RELEASE 500 MG TAB PO SCH (20:35)
[2023-02-25] MEDS: DIVALPROEX EXTENDED RELEASE 250 MG TABCR PO SCH (20:35)
[2023-02-25] MEDS: MELATONIN 3 MG TAB PO SCH (20:36)
[2023-02-25] MEDS: DICLOFENAC SOD 1% GEL 100 GM TUBE EXT PRN (21:01)
[2023-02-26] MEDS: ACETAMINOPHEN 325 MG TAB PO PRN ×2 (00:55→20:01)
[2023-02-26] MEDS: CEFEPIME 2,000 MG in SYRINGE 0 ML IV SCH ×2 (04:33→12:52)
[2023-02-26] MEDS: oxyCODONE HCL IR 5 MG TAB (IMMEDIATE RELEASE) PO PRN (04:39)
[2023-02-26 06:12] LABS: Hematocrit (blood only) 29.4 % (42.0-52.0); Hemoglobin 9.8 g/dl (14.0-18.0)
[2023-02-26 06:28] LABS: BUN Creatinine Ratio 32.7 (10-20); Calcium 9.3 mg/dl (8.6-10.3); Creatinine Clr Calc Pharmacy 127.1 ml/min; Est GFR (Non-African American) 109.6 ml/min; Potassium 4.2 mmol/L (3.5-5.1)
[2023-02-26] MEDS: ACETYLCYSTEINE 600 MG CAP PO SCH (08:21)
[2023-02-26] MEDS: DOCUSATE SODIUM 100 MG CAP PO SCH ×2 (08:21→20:00)
[2023-02-26] MEDS: MAGNESIUM OXIDE 400 MG TAB PO SCH ×2 (08:21→20:01)
[2023-02-26] MEDS: ROSUVASTATIN CALCIUM 20 MG TAB PO SCH (08:22)
[2023-02-26] MEDS: MULTIVITAMIN TAB PO SCH (08:22)
[2023-02-26] MEDS: SACCHAROMYCES BOULARDII 250 MG CAP PO SCH (08:22)
[2023-02-26] MEDS: CALCIUM 600MG + VIT D 400 IU TAB PO SCH (08:22)
[2023-02-26] MEDS: FLUoxetine HCL 20 MG CAP PO SCH (08:23)
[2023-02-26] MEDS: PANTOprazole 40 MG in SYRINGE 0 ML IV SCH ×2 (08:23→20:00)
[2023-02-26] MEDS: FUROSEMIDE INJ 20 MG/2 ML VIAL IV SCH ×3 (08:25→17:05)
[2023-02-26] MEDS: MAGNESIUM HYDROXIDE SUSP 30 ML UDC PO SCH (08:25)
--- NOTE | 2023-02-26 10:37 | Communication Note ---
Date of Service: February 26, 2023 Patient's H&H has remained stable Would hold anticoagulant for at least a week Then monitor closely after restarting
[2023-02-26] MEDS: DIGOXIN 0.125 MG TAB PO SCH (17:04)
[2023-02-26] MEDS: DICLOFENAC SOD 1% GEL 100 GM TUBE EXT PRN (17:05)
--- NOTE | 2023-02-26 18:58 | Hospitalist Progress Note ---
Date of Service February 26, 2023 Assessment & Plan (1) Severe sepsis: Plan: Sepsis UTI Urine culture Pseudomonas Continue cefepime Left Leg Hematoma No known H/O Trauma/Fall --CT A/P shows cystitis and small foci of hyperdense material in left adductor and quadriceps muscle which is non specific but small foci of bleed and active contrast extravasation can not be ruled out. --Repeat Left thigh CT 02/23 again shows intramuscular swelling, raising question of intramuscular bleed. Discussed with Rosa, patient has not had fall currently but reports he was moved from a wheelchair, into car and maybe pulled his leg? H/H has been stable off Eliquis since 02/20. Appreciate surgery input Aspirin resumed Continue to hold Eliquis Monitor CBC We will need to hold anticoagulation for 7 to 14 days Hb stable Likely discharge tmw (2) Left leg swelling: Plan: Acute on chronic HFrEF, history of VT in the past status post ICD. --Echocardiogram in October 2022 shows EF of 30 to 35% --Venous ultrasound and CTA left leg both negative for clot --Continue lasix 20mg IV TID with hold parameters. KCl 20mg PO TID while on Lasix Monitor volume status (3) Hyponatremia: Plan: Sodium 134 today Monitor (4) Anemia: Plan: Appreciate GI input. Heme occult negative. Upon further investigation, reports he did have some episodes of epistaxis at home (none currently) which may be causing the worsening anemia, in addition to dilution after IVF. CT left thigh shows possible intramuscular bleed. s/p 1 unit pRBC 02/20 H/H remains stable Low iron. received 1 dose IV iron 02/21 Monitor CBC Plan History of cardiac thrombus PAF Eliquis currently on hold -continue digoxin. History of CVA, peripheral vascular disease continue on aspirin, statin Seizure disorder continue Depakote Code Status Full code DVT Px: SCDs. Disposition Home as able Admission and Anticipated Discharge Date Admission Date: February 19, 2023 Subjective Patient is seen and examined at bedside Poor historian No new complaints No events overnight Hb stable Review of Systems Review of Systems: All systems reviewed & are unremarkable except as noted in Subjective Physical Exam Physical Exam: Physical Exam: Vitals signs as noted above General Appearance:Moderately built and nourished, chronically appearing, no apparent distress Head: normocephalic, Atraumatic Eyes: normal inspection, EOMI Neck: supple, Trachea midline Respiratory/Chest: Normal breath sounds, CTA, No accessory muscle use, +Pacer on Left Cardiovascular: S1, S2, No murmur Abdomen/GI:Soft, Non tender, Bowel sounds present Extremities/Musculoskeletal:normal inspection, 1+ edema Neurologic/Psych: Alert, awake, mostly nonverbal, unable to perform complete neurological exam as does not follow commands Seem to have left hemiplegia Skin: normal color, warm Results & Data Results & Data Vital Signs (Past 12 Hours) Vital Signs Temp Pulse Pulse Resp BP Pulse Ox O2 Del Method 02/26/23 16:00 90 02/26/23 08:00 83 02/26/23 17:04 90 02/26/23 17:00 36.9 C 94 H 21 93/69 L 95 Room Air 02/26/23 12:25 37 C 91 H 20 123/69 97 Room Air 02/26/23 08:15 96 H 119/78 02/26/23 07:55 37 C 87 18 97/65 L 95 Room Air Laboratory Results Short CBC 02/26/23 Range/Units 05:47 Hgb 9.8 L (14.0-18.0) g/dl Hct 29.4 L (42.0-52.0) % BMP 02/26/23 05:47 Sodium 134 L Potassium 4.2 Chloride 99 Carbon Dioxide 29 BUN 17 Creatinine 0.52 L Glucose 112 H Calcium 9.3
[2023-02-26] MEDS: DIVALPROEX EXTENDED RELEASE 250 MG TABCR PO SCH (19:59)
[2023-02-26] MEDS: MELATONIN 3 MG TAB PO SCH (19:59)
[2023-02-26] MEDS: DIVALPROEX EXTENDED RELEASE 500 MG TAB PO SCH (20:00)
[2023-02-27 06:31] LABS: Hematocrit (blood only) 29.5 % (42.0-52.0); Hemoglobin 9.7 g/dl (14.0-18.0); Mean Corpuscular Hemoglobin 29.7 pg (25.0-34.0); Mean Corpuscular Hgb Conc 32.9 g/dL (32.0-36.0); Mean Corpuscular Volume 90.2 fL (80.0-100.0); Platelet Count 322 K/uL (130-400); RDW Coefficient of Variation 16.9 % (11.5-14.5); Red Blood Count 3.27 M/uL (4.70-6.10); White Blood Count 8.89 K/ul (4.8-10.8)
[2023-02-27 07:26] LABS: Calcium 9.4 mg/dl (8.6-10.3); Magnesium 2.3 mg/dl (1.7-2.4); Potassium 4.1 mmol/L (3.5-5.1)
[2023-02-27 07:32] LABS: BUN Creatinine Ratio 33.9 (10-20); Est GFR (African American) 120.6 ml/min
[2023-02-27] MEDS: ASPIRIN 81 MG ECTAB PO SCH (08:03)
[2023-02-27] MEDS: MULTIVITAMIN TAB PO SCH (08:03)
[2023-02-27] MEDS: MAGNESIUM HYDROXIDE SUSP 30 ML UDC PO SCH (08:03)
[2023-02-27] MEDS: ACETYLCYSTEINE 600 MG CAP PO SCH (08:03)
[2023-02-27] MEDS: CALCIUM 600MG + VIT D 400 IU TAB PO SCH (08:03)
[2023-02-27] MEDS: FLUoxetine HCL 20 MG CAP PO SCH (08:03)
[2023-02-27] MEDS: ROSUVASTATIN CALCIUM 20 MG TAB PO SCH (08:04)
[2023-02-27] MEDS: MAGNESIUM OXIDE 400 MG TAB PO SCH (08:04)
[2023-02-27] MEDS: FUROSEMIDE INJ 20 MG/2 ML VIAL IV SCH ×2 (08:04→12:41)
[2023-02-27] MEDS: PANTOprazole 40 MG in SYRINGE 0 ML IV SCH (08:04)
[2023-02-27] MEDS: SACCHAROMYCES BOULARDII 250 MG CAP PO SCH (08:04)
[2023-02-27] MEDS: DOCUSATE SODIUM 100 MG CAP PO SCH (08:06)
[2023-02-27] MEDS: oxyCODONE HCL IR 5 MG TAB (IMMEDIATE RELEASE) PO PRN (10:52)
--- NOTE | 2023-02-27 12:03 | Hospitalist Progress Note ---
Date of Service February 27, 2023 Assessment & Plan (1) Severe sepsis: Plan: Sepsis UTI Urine culture Pseudomonas Completed cefepime course Left Leg Hematoma No known H/O Trauma/Fall --CT A/P shows cystitis and small foci of hyperdense material in left adductor a nd quadriceps muscle which is non specific but small foci of bleed and active contrast extravasation can not be ruled out. --Repeat Left thigh CT 02/23 again shows intramuscular swelling, raising question of intramuscular bleed. Discussed with Rosa, patient has not had fall currently but reports he was moved from a wheelchair, into car and maybe pulled his leg? H/H has been stable off Eliquis since 02/20. Appreciate surgery input Aspirin resumed Continue to hold Eliquis Monitor CBC Will need to hold anticoagulation for 7 to 14 days as recommended Hb stable Plan to discharge home today (2) Left leg swelling: Plan: Acute on chronic HFrEF, history of SC in the past status post ICD. --Echocardiogram in October 2022 shows EF of 30 to 35% --Venous ultrasound and CTA left leg both negative for clot --Continue lasix 20mg IV TID with hold parameters. KCl 20mg PO TID while on Lasix>> transition to p.o. Lasix upon discharge Monitor volume status (3) Hyponatremia: Plan: Sodium 134 today Monitor (4) Anemia: Plan: Appreciate GI input. Heme occult negative. Upon further investigation, reports he did have some episodes of epistaxis at home (none currently) which may be causing the worsening anemia, in addition to dilution after IVF. CT left thigh shows possible intramuscular bleed. s/p 1 unit pRBC 02/20 H/H remains stable Low iron. received 1 dose IV iron 02/21 Monitor CBC Plan History of cardiac thrombus PAF Eliquis currently on hold -continue digoxin. History of CVA, peripheral vascular disease continue on aspirin, statin Seizure disorder continue Depakote Code Status Full code DVT Px: SCDs. Disposition Home today Admission and Anticipated Discharge Date Admission Date: February 19, 2023 Subjective Patient is seen and examined at bedside Poor historian Doing well today Offers no complaints Plan to discharge home today Discussed with patient's family over the phone Review of Systems Review of Systems: All systems reviewed & are unremarkable except as noted in Subjective Physical Exam Physical Exam: Physical Exam: Vitals signs as noted above General Appearance:Moderately built and nourished, chronically appearing, no apparent distress Head: normocephalic, Atraumatic Eyes: normal inspection, EOMI Neck: supple, Trachea midline Respiratory/Chest: Normal breath sounds, CTA, No accessory muscle use, +Pacer on Left Cardiovascular: S1, S2, No murmur Abdomen/GI:Soft, Non tender, Bowel sounds present Extremities/Musculoskeletal:normal inspection, 1+ edema Neurologic/Psych: Alert, awake, mostly nonverbal, unable to perform complete neurological exam as does not follow commands Seem to have left hemiplegia, + hearing impairment Skin: normal color, warm Results & Data Results & Data Vital Signs (Past 12 Hours) Vital Signs Temp Pulse Pulse Resp BP Pulse Ox O2 Del Method 02/27/23 11:37 36.7 C 85 18 100/61 98 Room Air 02/27/23 09:43 86 02/27/23 07:47 36.9 C 86 18 105/66 98 Room Air 02/27/23 03:08 37.1 C 94 H 18 108/64 95 Room Air Laboratory Results Short CBC 02/27/23 Range/Units 05:57 WBC 8.89 (4.8-10.8) K/ul Hgb 9.7 L (14.0-18.0) g/dl Hct 29.5 L (42.0-52.0) % Plt Count 322 (130-400) K/uL BMP 02/27/23 05:57 Sodium 136 Potassium 4.1 Chloride 99 Carbon Dioxide 34 H BUN 20 Creatinine 0.59 L Glucose 103 H Calcium 9.4
--- NOTE | 2023-02-27 12:46 | Discharge Summary ---
Date of Service February 27, 2023 Admission HPI Per Admitting Provider History obtained from interview with patient's ex- at bedside and chart review. 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 Last admission in November 2022 with urosepsis with Pseudomonas Patient was brought to the hospital by his ex- (who is also his caregiver) due to increasing weakness since yesterday. Reported that patient appears to be lethargic compared to his baseline. She reports that she did not want to wait till patient is more altered and he presented last admission She also noticed increasing swelling of the left leg since yesterday as well. Patient reports fever and chills; denies any pain. She also reports patient being constipated for past few days; last bowel movement was in the ED today. Recent seizure-like activity. At baseline, patient is bedbound due to his stroke and requires assistance with his ADLs. On presentation to the ED, patient was normotensive, tachypneic and tachycardic. He was having chills; temperature was 37.0 C. Lab work was remarkable for leukocytosis, hyponatremia, anion gap metabolic acidosis and lactic acidosis. Urinalysis suggestive of infection. [place] catheter was placed in the ED. Admission Exam Per Admitting Provider Physical Exam Physical Exam: Constitutional: Patient lying on the bed; with rigors. Patient is awake able to follow simple commands. Respiratory: Bilateral vesicular breath sound, no added sound. Cardiovascular: RRR, no murmur, no edema Vessels: no JVD or carotid bruit Chest: normal inspection of chest Abdomen: normal bowel sounds, soft, nontender, no hepatosplenomegaly Musculoskeletal: Left leg larger than right leg from thigh and below. He has a superficial skin breakdown on the dorsal aspect of the ankle. No obvious signs of cellulitis. Induration present throughout the leg. Pulses not able to appreciate. Toes are slightly cooler to touch. Skin: no rashes, warm and dry normal turgor Neurologic: Awake alert, oriented to self and place. Left-sided weakness present; at baseline. Principal Diagnosis Sepsis Urinary tract infection Left leg hematoma Hyponatremia Discharge Data Allergies Allergy/AdvReac Type Severity Reaction Status Date / Time morphine Allergy Intermediate Itchiness Verified 02/19/23 18:11 naproxen Allergy Intermediate Hives Verified 02/19/23 18:11 Consultations 02/19/23 19:15 ED Decision to Admit Stat 02/20/23 14:48 Consult Gastroenterology Routine 02/20/23 14:51 Consult Cardiology Routine 02/23/23 17:22 Consult General Surgery Routine Procedures Performed Laboratory Results WBC 8.89 K/ul (4.8-10.8) 02/27/23 05:57 RBC 3.27 M/uL (4.70-6.10) L 02/27/23 05:57 Hgb 9.7 g/dl (14.0-18.0) L 02/27/23 05:57 Hct 29.5 % (42.0-52.0) L 02/27/23 05:57 MCV 90.2 fL (80.0-100.0) 02/27/23 05:57 MCH 29.7 pg (25.0-34.0) 02/27/23 05:57 MCHC 32.9 g/dL (32.0-36.0) 02/27/23 05:57 RDW Std Deviation 52.0 fL (36.4-46.3) H 02/27/23 05:57 RDW Coeff of Pam 16.9 % (11.5-14.5) H 02/27/23 05:57 Plt Count 322 K/uL (130-400) 02/27/23 05:57 MPV 10.0 fL (9.4-12.4) 02/27/23 05:57 Immature Gran % (Auto) 0.3 % 02/21/23 05:49 Neut % (Auto) 60.6 % 02/21/23 05:49 Lymph % (Auto) 22.0 % 02/21/23 05:49 [place] % (Auto) 16.3 % 02/21/23 05:49 Eos % (Auto) 0.5 % 02/21/23 05:49 Baso % (Auto) 0.3 % 02/21/23 05:49 Neut # (Auto) 5.77 K/uL (1.40-6.50) 02/21/23 05:49 Lymph # (Auto) 2.10 K/uL (1.2-3.4) 02/21/23 05:49 [place] # (Auto) 1.55 K/uL (0.11-0.59) H 02/21/23 05:49 Eos # (Auto) 0.05 K/uL (0-0.50) 02/21/23 05:49 Baso # (Auto) 0.03 K/uL (0-0.2) 02/21/23 05:49 Immature Gran # (Auto) 0.03 K/uL (0.01-0.20) 02/21/23 05:49 Ovalocytes 1+ 02/20/23 02:37 PT 12.7 Seconds (9.0-12.0) H 02/19/23 17:34 INR 1.2 (0.9-1.1) H 02/19/23 17:34 APTT 32.0 Seconds (21.0-31.0) H 02/19/23 17:34 PTT Ratio 1.1 02/19/23 17:34 Sodium 136 mmol/L (136-145) 02/27/23 05:57 Potassium 4.1 mmol/L (3.5-5.1) 02/27/23 05:57 Chloride 99 mmol/L (98-107) 02/27/23 05:57 Carbon Dioxide 34 mmol/L (21-32) H 02/27/23 05:57 Anion Gap 3 (3-11) 02/27/23 05:57 BUN 20 mg/dl (6-23) 02/27/23 05:57 Creatinine 0.59 mg/dl (0.6-1.4) L 02/27/23 05:57 Est Cr Clr Drug Dosing 112.0 ml/min 02/27/23 05:57 Est GFR ( Amer) 120.6 ml/min 02/27/23 05:57 Est GFR (Non-Af Amer) 104.0 ml/min 02/27/23 05:57 BUN/Creatinine Ratio 33.9 (10-20) H 02/27/23 05:57 Glucose 103 mg/dl (70-99(Fasting)) H 02/27/23 05:57 POC Glucose 122 mg/dl (70-99) H 02/20/23 07:22 Lactate 1.3 mmol/L (0.4-2.0) 02/20/23 02:37 Calcium 9.4 mg/dl (8.6-10.3) 02/27/23 05:57 Magnesium 2.3 mg/dl (1.7-2.4) 02/27/23 05:57 Iron 34 mcg/dl (35-175) L 02/21/23 05:49 Unsaturated IBC 207 mcg/dl (155-355) 02/21/23 05:49 Total Bilirubin 0.4 mg/dl (0.2-1.0) 02/20/23 02:37 Direct Bilirubin 0.1 mg/dl (0-0.2) 02/19/23 17:34 AST 28 U/L (13-39) 02/20/23 02:37 ALT 9 U/L (7-52) 02/20/23 02:37 Alkaline Phosphatase 43 U/L (34-104) 02/20/23 02:37 Total Creatine Kinase 477 U/L (30-223) H 02/19/23 21:48 Troponin I High Sens 17.0 pg/ml (0-20) 02/19/23 17:34 Total Protein 5.7 gm/dl (6.0-8.3) L 02/20/23 02:37 Albumin 2.9 gm/dl (3.4-5.0) L 02/20/23 02:37 Globulin 2.8 gm/dl (2.5-4.0) 02/20/23 02:37 Albumin/Globulin Ratio 1.0 (0.9-2) 02/20/23 02:37 Vitamin B12 392 pg/ml (180-914) 02/21/23 05:49 Folate 16.47 ng/ml (>5.38) 02/21/23 05:49 Procalcitonin 0.05 ng/ml (0-0.5) 02/19/23 17:34 Urine Color Dark Yellow 02/19/23 19:14 Urine Appearance Turbid (Clear) A 02/19/23 19:14 Urine pH 6.0 (4.5-7.5) 02/19/23 19:14 Ur Specific [place] 1.022 (1.000-1.030) 02/19/23 19:14 Urine Protein 1+ (Negative) H 02/19/23 19:14 Urine Glucose (UA) Negative (Negative) 02/19/23 19:14 Urine Ketones 1+ (Negative) H 02/19/23 19:14 Urine Blood 3+ (Negative) H 02/19/23 19:14 Urine Nitrite Negative (Negative) 02/19/23 19:14 Urine Bilirubin Negative (Negative) 02/19/23 19:14 Urine Urobilinogen Negative (Negative) 02/19/23 19:14 Ur Leukocyte Esterase 3+ (Negative) H 02/19/23 19:14 Urine WBC (Auto) >30 /hpf (0-5) H 02/19/23 19:14 Urine RBC (Auto) 10-30 /hpf (0-4) H 02/19/23 19:14 U Hyaline Cast (Auto) 10-30 /lpf (0-5) H 02/19/23 19:14 U Epithel Cells (Auto) 20-30 /lpf (0-5) H 02/19/23 19:14 Urine Bacteria (Auto) 1+ (Negative) H 02/19/23 19:14 Urine Osmolality 514 mOsm/kg (500-800) 02/19/23 19:14 Ur Random Creatinine 118.1 mg/dl 02/19/23 19:14 Urine Sodium 27 mmol/L 02/19/23 19:14 Urine Potassium 64.2 mmol/L 02/19/23 19:14 Urine Chloride 23 mmol/L 02/19/23 19:14 Stool Occult Bld Scrn Negative (Negative) 02/20/23 17:10 Random Vancomycin 12.1 mcg/ml (10-20) 02/21/23 05:49 SARS-CoV-2, RNA, NAAT NEGATIVE (NEGATIVE) 02/19/23 Unknown Blood Type A Positive 02/20/23 15:41 Antibody Screen NEGATIVE 02/20/23 15:41 Crossmatch See Detail 02/20/23 15:41 Impressions Chest X-Ray 02/19/23 16:52 XR chest 1V portable CLINICAL HISTORY: Sepsis TECHNIQUE: Single frontal radiograph of the chest was obtained. Comparison: Comparison is made to chest radiographs 11/05/2022 FINDINGS: Pacemaker defibrillator is seen. The cardiomediastinal silhouette is normal. Lungs are underinflated but clear. No evidence of pleural effusion or pneumothorax. IMPRESSION: No acute abnormalities and in particular no radiographic evidence of pneumonia. ACT 112: Negative or not required by law. Electronically signed by: Toni Chapman M.D. 02/19/2023 5:[address] 02/19/23 17:06 CT head/brain wo con CLINICAL HISTORY: ams Technique: Contiguous axial CT images of the head were acquired from the base of the skull to the vertex without intravenous contrast administration. Images were viewed in brain, subdural and bone windows. Automated dose lowering techniques and/or adjustment according to patient size were utilized for this exam. Comparison: Comparison is made to CT head 11/17/2022 Findings: Areas of decreased attenuation are present in the periventricular and subcortical white matter bilaterally consistent with small vessel ischemic disease. Generalized cerebral atrophy with commensurate enlargement of the ventricles, sulci, and cisterns is also present. There is no acute intracranial hemorrhage or evidence of acute territorial infarction. No shift of the midline structures, mass effect, or extra-axial abnormalities are shown. Atherosclerotic calcifications are present in the intracranial segments of the internal carotid arteries. Focal right MCA territory encephalomalacia is unchanged compatible with prior stroke. Exam is limited by patient motion. Imaged portions of the paranasal sinuses and mastoid air cells are clear. The orbits appear normal. There are no acute fractures of the calvaria or scalp swelling. Impression: No acute intracranial hemorrhage, no evidence of acute territorial infarction or other acute intracranial disease process. ACT 112: Negative or not required by law. Electronically signed by: Toni Chapman M.D. 02/19/2023 6:53 PM Lower Extremity CTA 02/19/23 19:57 Exam(s): CTA EXTREMITY LEFT LOWER W/WO Contrast IV Amt: 118 ml optiray 320 EXAM: CT Angiography Abdomen and Pelvis With Runoff to the Lower Extremities With Intravenous Contrast CLINICAL HISTORY: Reason for exam: RUle out arterial thrombosis in left leg. TECHNIQUE: Axial computed tomographic angiography images of the abdomen, pelvis and lower extremities with intravenous contrast. CTDI is 28.48 mGy and DLP is 1312.02 mGy-cm. Automated exposure control was utilized for the study. A dose lowering technique was utilized adhering to the principles of ALARA. MIP reconstructed images were created and reviewed. CONTRAST: Patient received 118 ml optiray 320 of IV contrast COMPARISON: No relevant prior studies available. FINDINGS: VASCULATURE: Aorta: Atherosclerotic change within the infrarenal abdominal aortic without focal stenosis. No abdominal aortic aneurysm. No dissection. Celiac trunk and mesenteric arteries: No acute findings. No occlusion or significant stenosis. Renal arteries: No acute findings. No occlusion or significant stenosis. Right iliac arteries: No acute findings. No occlusion or significant stenosis. Right femoral/popliteal arteries: No acute findings. No occlusion or significant stenosis. Right calf/foot arteries: 2 vessel runoff into the foot via the anterior and posterior tibial arteries on the right. Left iliac arteries: No acute findings. No occlusion or significant stenosis. Left femoral/popliteal arteries: No acute findings. No occlusion or significant stenosis. Left calf/foot arteries: Single vessel runoff into the foot via the posterior tibial artery on the left with occlusion of the anterior tibial artery just above the ankle. PELVIS: Appendix: No findings to suggest acute appendicitis. Bladder: [place] catheter Reproductive: Unremarkable as visualized. ABDOMEN, PELVIS and LOWER EXTREMITIES: Intraperitoneal space: Unremarkable. No significant fluid collection. No free air. Bones/joints: Postoperative changes of ORIF left hip fracture. Postoperative changes plate-screw fixation distal left tibial fracture. No dislocation. Soft tissues: Unremarkable. Lymph nodes: Unremarkable. No enlarged lymph nodes. IMPRESSION: 1. Single vessel runoff into the left foot without evidence of acute arterial thrombus 2. 2 vessel runoff to the foot on the right 3. No significant inflow disease identified on this exam Electronically signed by: Maurilio Adames MD 02/20/23 00:30 AM Venous Doppler Study 02/19/23 19:58 Exam(s): US VENOUS BILATERAL LOWER EXTREMITIES EXAM: US Duplex Bilateral Lower Extremities Veins CLINICAL HISTORY: Reason for exam: Rule out DVT. TECHNIQUE: Real-time duplex ultrasound scan of the bilateral lower extremity veins integrating B-mode two-dimensional vascular structure, Doppler spectral analysis, color flow Doppler imaging and compression. COMPARISON: No relevant prior studies available. FINDINGS: Right deep veins: Unremarkable. No DVT in the right common femoral, femoral, proximal deep femoral or popliteal veins. The veins demonstrate normal color flow, are normally compressible, with normal phasic flow and/or augmentation response. Right superficial veins: Unremarkable. No thrombus in the visualized right great saphenous vein. Left deep veins: Left popliteal vein is not seen on this exam secondary to patient inability to position. No DVT in the left common femoral, femoral, or proximal deep femoral veins. The veins demonstrate normal color flow, are normally compressible, with normal phasic flow and/or augmentation response. Left superficial veins: Unremarkable. No thrombus in the visualized left great saphenous vein. Soft tissues: No acute findings. No popliteal cyst. IMPRESSION: No acute findings in the bilateral lower extremity veins. Nonvisualization of the left popliteal vein secondary to patient's inability to position Electronically signed by: Maurilio Adames MD 02/19/23 22:22 PM Abdomen/Pelvis CT 02/20/23 14:14 CT OF THE ABDOMEN AND PELVIS WITH CONTRAST CLINICAL HISTORY: Sepsis, evaluate for abdominal infection. COMPARISON STUDY: CT of the abdomen and pelvis November 28, 2022. TECHNIQUE: Following IV administration of 95 mL of Optiray, axial images of the abdomen and pelvis were obtained from the lung bases to the proximal femurs. Images were reviewed in the axial, sagittal, and coronal planes. IV contrast was administered without complication. Automated exposure control was utilized for the study. A dose lowering technique was utilized adhering to the principles of ALARA. CT DOSE: 1302.40 mGy.cm FINDINGS: This exam is compromised by motion artifact. There is no consolidation within the lower lungs to suggest pneumonia. Coronary artery calcification is incidentally noted. Left subclavian pacer is partially imaged. There are gallstones within the gallbladder. No evidence for acute cholecystitis. The liver, spleen, adrenal glands and pancreas are unremarkable. An 8 mm right ureteropelvic junction calculus is again noted. This is similar to CT of November 28, 2022. There is no right hydronephrosis. The appendix is not visualized. The caliber and wall thickness of small and large bowel are normal. There is no evidence for a bowel obstruction. There is no lymphadenopathy. A [place] balloon within the bladder is present. Bladder wall thickening is noted. This is accentuated by underdistention. There is no fluid collection within the abdomen or pelvis. Left femoral internal fixation is noted. A vascular necrosis of the bilateral femoral heads is again noted. Ossific/calcific density within the left ischial tuberosity and the adjacent portion of the left femur is chronic. There is asymmetric enlargement of the left adductor muscles. There are several tiny round hyperdense foci within the left adductor musculature as well as visualized portions of the left quadriceps. Bilateral lower extremity edema is greater on the left. This has increased since CT of February 19, 2023. IMPRESSION: 1. Pronounced bladder wall thickening, accentuated by underdistention. This could be correlated with urinalysis. 2. Asymmetric enlargement of the left adductor musculature, a nonspecific finding. Multiple small hyperdense foci within the left adductor and quadriceps musculature, partially imaged on this exam. These are entirely nonspecific. However, small foci of bleeding with active extravasation cannot be completely excluded. Short-term follow-up CT of the left thigh is recommended. 3. No bowel obstruction. No bowel wall thickening. 4. Redemonstration of an 8 mm right ureteropelvic junction calculus without hydronephrosis. 5. Cholelithiasis. No evidence for acute cholecystitis. ACT 112: Negative or not required by law. Electronically signed by: Krzysztof Sneed M.D. 02/20/2023 4:[address] 02/23/23 09:00 CT SCAN OF THE LEFT FEMUR WITH IV CONTRAST CLINICAL HISTORY: Left leg swelling. Clinical concern for hematoma. COMPARISON STUDY: CT angiogram of the left leg and CT of the pelvis dated . TECHNIQUE: Following the IV administration of 94 mL of Optiray 320, CT scan of the left femur is performed from the bony pelvis to the knee. Images are reviewed in the axial, sagittal, and coronal planes. IV contrast was administered without complication. A dose lowering technique was utilized adhering to the principles of ALARA. Note, the interpretation is suboptimal without plain film correlate. CT DOSE: 731.49 mGy.cm FINDINGS: The skeletal structures are osteopenic. There is no evidence of acute right femoral fracture. The visualized left hemipelvis appears intact. No lytic or blastic lesion is seen. There is posttraumatic deformity of the left proximal femur with intertrochanteric lag screws in place. There is avascular necrosis of the left femoral head. No bony erosion or periostitis is seen. There is chronic post traumatic deformity with postsurgical change seen in the proximal tibia. Degenerative change is noted in the hip and knee joints. There is no CT evidence of left hip effusion. There is a small knee joint effusion. There is generalized atrophy of the regional musculature. Edema and possible intramuscular hemorrhage is again seen within the left adductor musculature as well as within the left quadriceps musculature. No well-delineated hematoma is identified. A tiny hyperdense focus within the left quadriceps musculature is seen on image #[id number]. A tiny focus of active extravasation is not excluded. Additional foci of extravasation suggested on the 02/19/[address] are no longer seen. Soft tissue edema is present on the left thigh. No soft tissue gas is seen. The left femoral artery appears patent. No inguinal lymphadenopathy is seen. The bladder is decompressed around a [place] catheter and appears circumferentially thick- walled with surrounding inflammation. IMPRESSION: 1. No acute bony abnormality is seen involving the left femur. 2. Again seen is asymmetric edema and possible intramuscular hemorrhage within the left adductor musculature as well as the left quadriceps musculature. Correlate clinically. 3. A punctate hyperdense focus within the left quadriceps musculature is nonspecific and a tiny focus of active extravasation is not excluded. Additional foci of active extravasation suggested on the recent pelvic CT are no longer visualized. 4. No well-delineated/measurable hematoma is identified. 5. There is avascular necrosis of the left femoral head. 6. The appearance of the bladder suggests cystitis. Correlate with clinical findings and urinalysis. 7. Additional findings as above. ACT 112: Negative or not required by law. Dictated: 02/23/2023 10:38 AM Transcribed: 02/23/2023 11:08 AM [place] [id number] [email or web address] Electronically signed by: Thang Thomas M.D. 02/23/2023 11:11 AM Ordered Studies 02/19/23 17:06 CT Brain [CT head/brain wo con] Stat 02/19/23 19:57 CT angio LE LT w inc wo if don Stat 02/19/23 19:58 US venous duplex leg [US venous doppler LE BI] Stat 02/20/23 14:14 CT abd pelvis IV con only Urgent 02/23/23 09:00 CT leg [CT femur LT w con] Routine Hospital Course (1) Severe sepsis: Sepsis UTI Urine culture Pseudomonas Completed cefepime course Left Leg Hematoma No known H/O Trauma/Fall --CT A/P shows cystitis and small foci of hyperdense material in left adductor and quadriceps muscle which is non specific but small foci of bleed and active contrast extravasation can not be ruled out. --Repeat Left thigh CT 02/23 again shows intramuscular swelling, raising question of intramuscular bleed. Discussed with Rosa, patient has not had fall currently but reports he was moved from a wheelchair, into car and maybe pulled his leg? H/H has been stable off Eliquis since 02/20. Appreciate surgery input Aspirin resumed Continue to hold Eliquis Monitor CBC Will need to hold anticoagulation for 7 to 14 days as recommended Hb stable Plan to discharge home today (2) Left leg swelling: Acute on chronic HFrEF, history of PA in the past status post ICD. --Echocardiogram in October 2022 shows EF of 30 to 35% --Venous ultrasound and CTA left leg both negative for clot --Continue lasix 20mg IV TID with hold parameters. KCl 20mg PO TID while on Lasix>> transition to p.o. Lasix upon discharge Monitor volume status (3) Hyponatremia: Sodium 134 today Monitor (4) Anemia: Appreciate GI input. Heme occult negative. Upon further investigation, reports he did have some episodes of epistaxis at home (none currently) which may be causing the worsening anemia, in addition to dilution after IVF. CT left thigh shows possible intramuscular bleed. s/p 1 unit pRBC 02/20 H/H remains stable Low iron. received 1 dose IV iron 02/21 Monitor CBC Plan History of cardiac thrombus PAF Eliquis currently on hold -continue digoxin. History of CVA, peripheral vascular disease continue on aspirin, statin Seizure disorder continue Depakote Code Status Full code DVT Px: SCDs. Disposition Home today Total Time Total Time Spent Total Time Spent (In Minutes): 54 minutes Discharge Plan Discharge Items Patient Disposition: Home - Self-Care Reason For Visit: SEPSIS Discharge Diagnosis: Sepsis Urinary tract infection Left leg hematoma Hyponatremia Activity: Per Instructions section Exercise/Sports: Wait until after follow-up appointment Non-emergency contact: Primary Care Provider Call non-emergency contact if: you have any medication questions, your symptoms worsen, your pain is concerning for you and you have a fever Follow-up/Referrals: Richardson Sterling MD [Primary Care Provider] - Diet: Heart Healthy Diet Texture: Pureed (blended smooth) Addtl Attending Provider Instructions: Follow up with your PCP on 03/05/23 @ 11:00AM as scheduled --- Your surgeon recommends to hold Eliquis for 1 more week. Obtain blood test (CBC) in 1 week and follow-up with PCP for recommendations as to when Eliquis can be resumed. Seek immediate medical attention if your symptoms reoccur or worsen Please take all medications as instructed on discharge list below. Please call if you have any questions or problems. You can reach a [facility] hospitalist on duty at [facility] 24 hours a day by calling [phone] Pending Studies at Discharge: No Stand-Alone Forms: [facility], Smoking Cessation Medications and DC Order Prescriptions: Continued multivitamin Tablet 1 tab PO DAILY fluoxetine 40 mg capsule 40 mg PO QAM alendronate 70 mg tablet 70 mg PO WK Rx Instructions: MONDAYS divalproex 500 mg tablet extended release 24 hr 1,000 mg PO HS Rx Instructions: TAKE TWO 500 MG TABLETS ALONG WITH ONE 250 MG TALET TO EQUAL 1250 MG DOSE digoxin 125 mcg tablet 125 mcg PO QAM furosemide 20 mg tablet 20 mg PO Q OTHER DAY divalproex 250 mg tablet extended release 24 hr 250 mg PO HS Rx Instructions: TAKE ONE 250 MG TABLET ALONG WITH TWO 500 MG TABLETS TO EQUAL 1250 MG DOSE dexlansoprazole 60 mg capsule,biphase delayed releas 60 mg PO QAM hydrocodone-acetaminophen 5-325 mg tablet 1 tab PO Q6H PRN (Reason: Pain) phenazopyridine 100 mg tablet 100 mg PO TID PRN (Reason: DYSURIA) Rx Instructions: LAST FILLED 07/08/22 FOR 30 TABS. betamethasone dipropionate 0.05 % ointment 1 applic TOPICAL BID PRN (Reason: NEEDED) glutathione 50 mg Capsule 250 mg PO DAILY Rx Instructions: ON [facility] [place] MED LIST, UNABLE TO VERIFY. Calcium Magnesium + D [id number] mg-mg-unit Tablet 1 tab PO DAILY melatonin 5 mg Tablet 5 mg PO HS coQ10 (ubiquinol) 200 mg Capsule 200 mg PO DAILY acetylcysteine 500 mg Capsule 500 mg PO DAILY rosuvastatin 40 mg Tablet 40 mg PO QAM aspirin 81 mg tablet,delayed release (DR/EC) 81 mg PO 3XWK Rx Instructions: take daily on thursday,thursday,fridays docusate sodium 100 mg Capsule 100 mg PO BID Qty: 30 0RF Held Eliquis 5 mg tablet 5 mg PO BID Hold Instructions: Follow up with primary care physician for further instructions. Discharge Orders: Discharge Order (Routine); Ordered 02/27/23 Ordered By: Arnulfo Johnson Admission Data Admit Date/Time: 02/19/23 20:07 Attending Provider: Arnulfo Johnson Admit Provider: Tim Griffin Primary Care Provider: Richardson Sterling Other Providers: Tim Griffin ; Edison Neumann ; Blayne Helm ; Milton Mena
== END 2023-02-27 14:18 | disposition home or self-care (01) | DRG 871 ==
LOC: ED 16:38 → 2E 20:07 → SUATTDRO 20:07 → 2E 21:02